=== PATIENT | male | born 1950 | race Caucasian/White ===

== ENCOUNTER → 2018-02-07 06:22 | Outpatient (CLI) | payer MEDICARE, OTHER, SELFPAY ==
--- NOTE | 2018-02-07 10:35 | STRESSREP ---
Stress Test Report Date: 02/07/2018 Procedure: Pharmacologic stress nuclear imaging study Indications: Shortness of breath/dyspnea on exertion; abnormal ECG Consent: Per the patient Procedure: The patient underwent pharmacologic (Regadenoson) evaluation with a peak heart rate of 97 beats per minute (64 predicted maximal heart rate) and a peak blood pressure of 170/82 mmHg. The baseline ECG demonstrated sinus rhythm with a right bundle branch block pattern. The peak pharmacologic ECG demonstrated no obvious ECG changes. There was a rare PVC during recovery. There was no complaint of chest discomfort during pharmacologic infusion or recovery. The examination was discontinued secondary to completion of protocol. Impression: 1. Pharmacologic (Regadenoson) evaluation 2. Peak pharmacologic ECG with no obvious ECG changes. 3. There was a rare PVC during recovery 4. Nuclear images pending Myocardial perfusion imaging study: Technique: The patient was injected with 14.9 millicuries of technetium 99m Cardiolite and subsequently rest SPECT Cardiolite nuclear imaging was obtained in the horizontal long, vertical long, and short axis views. The patient underwent pharmacologic (Regadenoson) evaluation with a peak heart rate of 97 beats per minute (64 % percent predicted maximal heart rate) and a peak blood pressure of 170/82 mmHg. The patient was injected with 4.6 millicuries of technetium 99m Cardiolite and subsequently stress SPECT Cardiolite nuclear imaging was obtained in the horizontal long, vertical long, and short axis views. A gated Cardiolite study at peak stress was obtained. Interpretation: Rest and stress SPECT Cardiolite nuclear imaging status post realignment, normalization, and attenuation correction demonstrate at rest and area of decreased myocardial perfusion/tracer uptake in portions of the distal inferolateral/lateral apical segments which appears to improve and/or normalize following stress. There is end systolic thickening and brightening. The gated Cardiolite study demonstrates myocardial thickening and inward wall motion. The reported LVEF is 75 %. Impression: 1. Rest and stress SPECT Cardiolite nuclear imaging demonstrate at rest and area of decreased myocardial perfusion/tracer uptake in portions of the distal inferolateral/lateral apical segments which appears to improve and/or normalize following stress. There are no myocardial perfusion changes consider diagnostic for associated stress-induced myocardial ischemia. 2. The gated Cardiolite study reports an LVEF of 75 %. This note was generated with [email or web address] software. It may contain incorrect words, spelling, and punctuation that were not noted in checking the note before signing.
== END ==
PROVIDERS: Family Provider Family Medicine; PCP Family Medicine; Visit Provider Family Medicine
DX: I45.10 Unspecified right bundle-branch block (principal); I44.4 Left anterior fascicular block; R94.31 Abnormal electrocardiogram [ECG] [EKG]
CPT/HCPCS: 78452; 93017; A9500; A4216; J2785

== ENCOUNTER → 2018-03-21 14:16 | Outpatient (CLI) | payer MEDICARE, OTHER, SELFPAY ==
[2018-03-21 16:49] LABS: PSA,Total - Annual Screen 0.55 ng/mL (0.00-4.00)
== END ==
PROVIDERS: Family Provider Family Medicine; PCP Family Medicine; Visit Provider Urology
DX: Z12.5 Encounter for screening for malignant neoplasm of prostate (principal)
CPT/HCPCS: 36415; 84153; G0103

== ENCOUNTER 2019-03-03 18:32 | Inpatient (IN) | payer MEDICARE, OTHER, SELFPAY ==
[2019-03-03 18:33] VITALS: BP 166/71; PULSE 76; RESP 18; TEMP 36.9; O2SAT 96; BMI 41.8
[2019-03-03 21:21] VITALS: BP 204/79; PULSE 74; RESP 16; O2SAT 95
--- NOTE | 2019-03-03 21:25 | ED.VISSUMM ---
- ER Visit Summary Date of Service: 03/03/19 Chief Complaint: Laceration right lower extremity History of Present Illness: The patient is a 68 M presenting with laceration right lower extremity. Patient accidentally hit his right leg with a car door earlier today. He continues to bleed and ooze. He has history of lymphedema. He is not on anticoagulants. No other injuries. Physical Examination: Vitals are stable. Patient is afebrile. Alert no acute distress. HEENT exam is unremarkable. Neck is supple. Lungs are clear and equal bilaterally. Heart is regular rate and rhythm. Abdomen is soft nontender nondistended. Extremities 3 cm skin avulsion right lower extremity. Bilateral lower extremity lymphedema Skin is warm and dry. No focal neurologic deficit. Remainder of exam is unremarkable. Emergency Department Course and Treatment: Wound was irrigated. Patient and family do not feel that he is able to care for this at home. He has significant oozing secondary to his lymphedema. He will need to follow-up with the wound center. Discussed with the hospitalist for observation. Disposition: Observation Impression: Right lower extremity wound, lymphedema This note was generated with [employer] dictation software. It may contain incorrect words, spelling, and punctuation that were not noted in review of the chart prior to signing ED Disposition - Plan for ED Patient: Referrals: Jean-Claude Garcia MD [Primary Care Provider] -
--- NOTE | 2019-03-03 21:26 | HP.PCM_ITS ---
Problem List (1) CKD (chronic kidney disease), stage III Status: Chronic (2) Wound of right leg Status: Acute (3) BMI 33.0-33.9,adult Status: Chronic History of Present Illness Date of Admission: 03/03/19 Chief Complaint: right leg wound The patient is a 68 year old M with a significant history of Morbid obesity; CKD stage III; diabetes mellitus; hypertension; hyperlipidemia; bilateral lymphedema; chronic anemia on regular iron infusions who presented to the emergency department because of right leg wound. He was getting out of his car and his leg bumped into the car door. Because patient is unable to reach his legs for dressing changes he was admitted for wound care. Past Medical History Past Medical History (Chronic Problems): Chronic Problems CKD (chronic kidney disease), stage III (Chronic) Diabetes (Chronic) Hypertension (Chronic) Hyperlipidemia (Chronic) BMI 33.0-33.9,adult (Chronic) Allergies amoxicillin Adverse Reaction (Verified 03/03/19 18:33) Upset Stomach Home Medications: Ambulatory Orders Medication Instructions Recorded Aspirin [Aspirin, Baby] 81 mg PO DAILY 03/03/15 Atorvastatin Calcium [Lipitor] 40 mg PO DAILY 03/03/15 Fluticasone 0.05% [Flonase Nasal 2 spray NASAL DAILY 12/31/15 [place]] Insulin Glargine,Hum.rec.anlog 40 unit SQ BREAKFAST 12/31/15 [Lantus] Pioglitazone [Actos] 30 mg PO DAILY 12/31/15 Sitagliptin Phosphate [Januvia] 12.5 mg PO DAILY 11/03/16 Allopurinol [Zyloprim] 100 mg PO DAILYCM 03/03/19 Carvedilol [Coreg] 50 mg PO BID 03/03/19 Cholecalciferol (VIT D3) [Vitamin 1,000 unit PO SUWESA 03/03/19 D] Clonidine HCl [Catapres] 0.3 mg PO BID 03/03/19 Insulin Aspart [Novolog Flexpen 16 units SC BIDCM 03/03/19 ([facility] [place])] Insulin Glargine,Hum.rec.anlog 30 unit SQ DINNER 03/03/19 [Lantus] Isosorbide Mononitrate [Isosorbide 120 mg PO DAILY 03/03/19 Mononitrate ER] Repaglinide [Prandin] 4 mg PO TID 03/03/19 Torsemide [Demadex] 20 mg PO DINNER 03/03/19 Torsemide [Demadex] 40 mg PO BREAKFAST 03/03/19 Umeclidinium Brm/Vilanterol Tr 1 each IH DAILY 03/03/19 [Anoro Ellipta 62.5-25 Mcg INH] hydrALAZINE [Apresoline] 25 mg PO TID 03/03/19 Surgical History: cataract Smoking Status: Former smoker - *Family History Sibling History Items: Heart Disease Maternal History Items: Heart Disease, Hypertension Paternal History Items: Cancer, Diabetes Review of Systems Constitutional: Denies: Chills, Fever, Weight Change HEENT: Denies: Head Aches, Sinus Congestion, Sinus Drainage Cardiovascular: Denies: Chest Pain, Palpitations Respiratory: Denies: Cough, Shortness of breath at rest, Sputum production Gastrointestinal: Denies: Abdominal Pain, Nausea, Vomiting Genitourinary: Denies: Dysuria Musculoskeletal: Denies: Joint Pain, Joint Tenderness Skin: Denies: Rash, Wounds Neurological: Denies: Numbness, Tingling, Focal weakness Psychiatric: Denies: Anxiety, Depression, Homicidal Ideations, Suicidal Ideations Hematologic/ Lymphatic: Denies: Easy Bruising, Easy Bleeding VTE Information - Inpt Only VTE Present on Admission: No VTE Mechan Device Prophylaxis: None VTE Pharm Prophylaxis ordered?: Yes Patient Problems: Active and Suspected Problems Wound of right leg (Acute) - Physical Exam General: Alert, Oriented x3, Cooperative, - - Morbidly Obese HEENT: Atraumatic, PERRLA, EOMI, Normocephalic Neck: Supple, No JVD, Negative Carotid Bruits Lungs: Clear to auscultation, Normal air movement Cardiovascular: Regular rate, No murmurs Abdomen: Bowel Sounds Present, Soft, Non Tender, Obese Extremities: No edema, Capillary Refill Less than 3 Seconds Skin: No breakdown, - - R ely deep wound; bilateral leg swelling with blisters. Musculoskeletal: No Tenderness to Palpation of Joints or Extremities Neurological: Cranial nerves II-XII grossly intact Psych/Mental Status: Normal Affect, Appropriate Vital Signs Temp Pulse Resp BP Pulse Ox 98.4 F 74 16 204/79 H 95 03/03/19 18:33 03/03/19 21:21 03/03/19 21:21 03/03/19 21:21 03/03/19 21:21 Oxygen Delivery Method Room Air Weight: 136.078 kg Body Mass Index (BMI) 41.8 Finger Stick Blood Glucose 131 Assessment/Plan All Active Problems Wound of right leg (Acute) DEVAN (acute kidney injury) (Acute) Gastrointestinal bleed (Resolved) Syncope and collapse (Acute) The patient is a 68 year old M with a significant history of CKD stage III; diabetes mellitus; hypertension; hyperlipidemia; bilateral lymphedema; chronic anemia on regular iron infusions who presented to the emergency department because of right leg wound which he will be unable to reach for dressing changes; and also found to have severely elevated creatinine above his baseline. Right leg wound Dry dressing to right leg until wound care see patient Wound care consult Tylenol for pain Discussed with ED doc to order Tetanus since patient thinks it is a long time he had a tetanus shot and does not know when. Hypertension On presentation his blood pressure was not within goal Coreg; clonidine; hydralazine p.o.; Imdur and torsemide continued PRN hydralazine continued DEVAN on CKD Stage 3 On presentation her creatinine was 3.19. BUN over creatinine is 26.3. Likely prerenal from diuretic use. Creatinine has been very variable. His highest creatinine in 2017 on file was 2.79. Hold home diuretics. Gentle IV hydration Avoid nephrotoxic's Trend BMP. Diabetes Mellitus On presentation his blood glucose was not within goal Home hypoglycemic regimen continued. Home Lantus continued Home short-acting insulin adjusted. Accu-Chek QACHS and correction scale short acting ordered. DVT Prophylaxis Heparin subcutaneous Code Visit OBSV E&M: 35125 Initial observation care L3
[2019-03-03 22:22] LABS: Absolute Lymphocyte Count 0.87 X10^3/ul (0.83-4.51); Absolute Neutrophil Count 7.5 X10^3/uL (2.0-7.7); Basophil# 0.03 X10^3/uL; Basophil% 0.3 % (0-1); Eosinophil# 0.19 X10^3/uL; Eosinophils% 2.1 % (0-5); Hematocrit 29.3 % (40-54); Hemoglobin 9.5 g/dl (13.0-16.5); Lymphocyte # 0.87 X10^3/ul (4.0); Lymphocyte % 9.7 % (19-41); Mean Corp Hgb Conc 32.4 g/gl (32-36); Mean Corpuscular Hgb 29.7 pg (27.0-32.0); Mean Corpuscular Volume 91.6 fL (80-94); Mean Platelet Vol. 9.9 fl (6.2-12.0); Monocyte# 0.37 X10^3/uL; Monocyte% 4.1 % (0-10); Neutrophil # 7.49 X10^3/uL (2.7-7.7); Neutrophil % 83.5 % (47-70); Platelet Count 149 K/mm3 (150-450); RBC Distribution Width CV 16.7 % (11.6-14.6); RBC Distribution Width SD 56.6 fl (35.1-43.9)
[2019-03-03 22:25] LABS: POSITIVE COUNT NO; POSITIVE DIFFERENTIAL NO; POSITIVE MORPHOLOGY NO
[2019-03-03 22:41] VITALS: BMI 41.5
[2019-03-03 22:41] LABS: Anion Gap 10 (5-15); BUN 84 mg/dL (7-18); BUN/Creat Ratio 26.3 RATIO (10-20); Chloride 102 mmol/L (98-107); Creatinine, Serum 3.19 mg/dL (0.70-1.30); EST Glomerular Filtration Rate 21 mL/min (>60); Est Glom Filt Rate - Afr Amer 25 mL/min (>60); Estimated Creatinine Clearance 22.95 ml/min; Glucose 199 mg/dL (74-106); Potassium 4.2 mmol/L (3.5-5.1); Sodium Level 142 mmol/L (136-145)
[2019-03-03 22:54] VITALS: BP 168/63; PULSE 74; RESP 18; TEMP 36.3; O2SAT 97
[2019-03-03] MEDS: Diphth,Pertuss(Acell),Tet Vac 0.5 ML Vial IM (23:00)
[2019-03-03 23:24] VITALS: BMI 41.6
[2019-03-03 23:41] VITALS: BP 168/63; PULSE 74
[2019-03-03] MEDS: hydrALAZINE 25 MG Tablet PO (23:41)
[2019-03-03 23:51] LABS: Bedside Glucose 198 mg/dL (70-110)
[2019-03-04] VITALS (11 sets, daily range): BP systolic 131–186; BP diastolic 50–80; PULSE 65–82; RESP 15–20; TEMP 36.6–37; O2SAT 93–97
[2019-03-04] MEDS: Lactated Ringers 1,000 ML 75 ML IV ×2 (00:31→14:01)
[2019-03-04] MEDS: 0.9% NaCl Peripheral Flush Adult/Peds IV ×2 (00:36→06:40)
[2019-03-04] MEDS: Insulin Lispro 100 UNIT/ML INSULN.PEN 10 UNIT SQ ×4 (00:47→16:48)
[2019-03-04 02:21] LABS: Bedside Glucose 206 mg/dL (70-110)
[2019-03-04] MEDS: hydrALAZINE 25 MG Tablet PO ×3 (06:23→21:42)
[2019-03-04] MEDS: Heparin Injection (Vial) 5,000 UNIT/ML VIAL 5000 UNIT SC ×3 (06:24→21:41)
[2019-03-04] MEDS: Ondansetron 4 MG/2 ML Vial IV ×2 (06:40→22:07)
[2019-03-04] MEDS: Ipratropium/Albuterol Sulfate 3 ML AMPUL.NEB INHALATION ×3 (06:47→18:35)
[2019-03-04] MEDS: Aspirin 81 MG TAB.CHEW PO (08:43)
[2019-03-04] MEDS: Carvedilol 25 MG Tablet 50 MG PO ×2 (08:43→21:41)
[2019-03-04] MEDS: cloNIDine HCl 0.1 MG Tablet 0.3 MG PO ×2 (08:43→21:41)
[2019-03-04] MEDS: Pioglitazone Hydrochloride 30 MG Tablet PO (08:43)
[2019-03-04] MEDS: LINAGLIPTIN 5 MG TABLET PO (08:44)
[2019-03-04] MEDS: Allopurinol 100 MG Tablet PO (08:44)
[2019-03-04] MEDS: Glucerna Shake 120 ML LIQUID PO ×4 (08:50→21:42)
[2019-03-04 09:01] LABS: Bedside Glucose 130 mg/dL (70-110)
[2019-03-04 09:13] LABS: Anion Gap 7 (5-15); BUN 72 mg/dL (7-18); BUN/Creat Ratio 27.1 RATIO (10-20); Calcium,Total 8.9 mg/dL (8.5-10.1); Chloride 104 mmol/L (98-107); Creatinine, Serum 2.66 mg/dL (0.70-1.30); EST Glomerular Filtration Rate 25 mL/min (>60); Est Glom Filt Rate - Afr Amer 31 mL/min (>60); Estimated Creatinine Clearance 26.68 ml/min; Glucose 124 mg/dL (74-106); Potassium 3.8 mmol/L (3.5-5.1); Sodium Level 141 mmol/L (136-145)
[2019-03-04] MEDS: Fluticasone 0.05% 1 SPRAY NASAL.SRY 2 SPRAY NASAL (11:57)
[2019-03-04] MEDS: Insulin Lispro 100 UNIT/ML INSULN.PEN SQ (12:01)
[2019-03-04 12:11] LABS: Bedside Glucose 177 mg/dL (70-110)
--- NOTE | 2019-03-04 13:15 | PCM.PN.HOSP ---
Patient Problems: Active and Suspected Problems Wound of right leg (Acute) Subjective: Earlier, had significant serous drainage from RLE wound. Later, serous drainage has improved. Vitals/I&O's: Vital Signs Temp Pulse Resp BP Pulse Ox 37.0 C 77 20 H 165/62 H 96 03/04/19 08:40 03/04/19 08:40 03/04/19 08:40 03/04/19 08:40 03/04/19 08:40 Oxygen Delivery Method Room Air Weight: 134.7 kg Body Mass Index (BMI) 41.5 Finger Stick Blood Glucose 131 Intake and Output for Last 24 Hours 03/02/19 03/03/19 03/04/19 23:59 23:59 23:59 Intake Total 1639 / 1639 Output Total 1560 / 1560 Balance General: Alert, No apparent distress HEENT: Atraumatic, Normocephalic Oral: Moist Mucosa, No Gingival or Mucosal Lesions/ Ulcerations Neck: No Nodes, Thyroid Normal Size and Texture Lungs: Clear to auscultation, Normal air movement, No rhonchi, No wheeze Cardiovascular: Regular rate, Regular Rhythm, Normal S1, Normal S2 Abdomen: Bowel Sounds Present, Soft, Non Tender, Non-Distended, No Hepato-splenomegaly Extremities: No edema, No Calf Tenderness, Edema Skin: - - right later wound: clean based, no bleeding. lymphedematous changes. Psych/Mental Status: Normal Affect, Appropriate Laboratory Results 03/03/19 22:16: WBC 9.0, RBC 3.20 L, Hgb 9.5 L, Hct 29.3 L, MCV 91.6, MCH 29.7, MCHC 32.4, RDW 16.7 H, RDW Differential 56.6 H, Plt Count 149 L, MPV 9.9, Immature Gran % (Auto) 0.300, Neut % (Auto) 83.5 H, Lymph % (Auto) 9.7 L, [place] % (Auto) 4.1, Eos % (Auto) 2.1, Baso % (Auto) 0.3, Absolute Neuts (auto) 7.5, Absolute Lymphs (auto) 0.87, Total Counted Not Reportable 03/03/19 22:16: Sodium 142, Potassium 4.2, Chloride 102, Carbon Dioxide 30.0, Anion Gap 10, BUN 84 H, Creatinine 3.19 H, Estim Creat Clear Calc 22.95, Est GFR (MDRD) Af Amer 25 L, Est GFR (MDRD) Non-Af 21 L, BUN/Creatinine Ratio 26.3 H, Glucose 199 H, Calcium 9.0 03/03/19 23:05: POC Glucose 198 H 03/04/19 00:57: POC Glucose 206 H 03/04/19 08:22: Sodium 141, Potassium 3.8, Chloride 104, Carbon Dioxide 30.0, Anion Gap 7, BUN 72 H, Creatinine 2.66 H, Estim Creat Clear Calc 26.68, Est GFR (MDRD) Af Amer 31 L, Est GFR (MDRD) Non-Af 25 L, BUN/Creatinine Ratio 27.1 H, Glucose 124 H, Calcium 8.9 03/04/19 08:36: POC Glucose 130 H 03/04/19 12:00: POC Glucose 177 H Current Medications Acetaminophen (Tylenol) 650 mg PO Q6H PRN PRN PRN Reason: Mild Pain (1-3)/Temp > 100.7 F Albuterol/Ipratropium (Duoneb) 3 ml INHALATION Q6HWA.RT [facility] Last Admin: 03/04/19 06:47 Dose: 3 ml Allopurinol (Zyloprim) 100 mg PO DAILYCM [facility] Last Admin: 03/04/19 08:44 Dose: 100 mg Aspirin (Aspirin, Baby) 81 mg PO DAILY@0800 [facility] Last Admin: 03/04/19 08:43 Dose: 81 mg Atorvastatin Calcium (Lipitor) 40 mg PO QHS [facility] Carvedilol (Coreg) 50 mg PO BID [facility] Last Admin: 03/04/19 08:43 Dose: 50 mg Cholecalciferol (Vitamin D) 1,000 unit PO MoWeSa@1000 [facility] Clonidine (Catapres) 0.3 mg PO BID [facility] Last Admin: 03/04/19 08:43 Dose: 0.3 mg Dextrose (D50w Syringe) 0 gm IV X1 PRN; Protocol PRN Reason: Hypoglycemia Fluticasone Propionate (Flonase Nasal [place]) 2 spray NASAL DAILY [facility] Last Admin: 03/04/19 11:57 Dose: 2 spray Glucagon () 1 mg IM .X1 PRN PRN Reason: Hypoglycemia Heparin Sodium (Porcine) (Heparin Na) 5,000 unit SC Q8 [facility] Last Admin: 03/04/19 06:24 Dose: 5,000 unit Hydralazine HCl (Apresoline) 25 mg PO TID [facility] Last Admin: 03/04/19 06:23 Dose: 25 mg Hydralazine HCl (Apresoline Iv) 5 mg IV Q4H PRN PRN PRN Reason: SBP > 160 Lactated Ringer's () 1,000 mls @ 75 mls/hr IV .[id number] [facility] Stop: 03/05/19 02:24 Last Admin: 03/04/19 00:31 Dose: 75 mls/hr Insulin Glargine (Lantus (Bkc)) 40 units SC BREAKFAST [facility] Last Admin: 03/04/19 08:46 Dose: 40 u Insulin Glargine (Lantus (Bkc)) 30 units SC QHS [facility] Last Admin: 03/03/19 23:38 Dose: 30 units Insulin Human Lispro (Humalog Kwikpen (Bkc)) [facility]; Protocol Last Admin: 03/04/19 12:01 Dose: 1 u Insulin Human Lispro (Humalog Kwikpen (Bkc)) 10 unit SQ BREAKFAST [facility] Last Admin: 03/04/19 08:45 Dose: 10 u Insulin Human Lispro (Humalog Kwikpen (Bkc)) 10 unit SQ DINNER [facility] Last Admin: 03/04/19 00:47 Dose: 10 units Insulin Human Lispro (Humalog Kwikpen (Bkc)) 10 unit SQ LUNCH [facility] Last Admin: 03/04/19 12:01 Dose: 10 u Isosorbide Mononitrate (Imdur) 120 mg PO DAILY [facility] Last Admin: 03/04/19 08:44 Dose: 120 mg Linagliptin (Tradjenta) 5 mg PO DAILY [facility] Last Admin: 03/04/19 08:44 Dose: 5 mg Nutritional Formula (Lactose Free) (Glucerna Shake) 120 ml PO 4X/DAY [facility] Last Admin: 03/04/19 08:50 Dose: 120 ml Ondansetron HCl (Zofran) 4 mg IV Q8H PRN PRN PRN Reason: NAUSEA/VOMITING Last Admin: 03/04/19 06:40 Dose: 4 mg Pioglitazone HCl (Actos) 30 mg PO DAILY [facility] Last Admin: 03/04/19 08:43 Dose: 30 mg Repaglinide (Prandin) 4 mg PO TIDCM [facility] Last Admin: 03/04/19 11:59 Dose: 4 mg Sodium Chloride () 5 - 15 ml IV UD PRN PRN Reason: SALINE FLUSH Last Admin: 03/04/19 06:40 Dose: 10 ml Torsemide (Demadex) 40 mg PO BREAKFAST [facility] Medical Necessity - Tobacco Use Smoking Status: Former smoker Tobacco Use: Cigarettes Assessment/Plan All Active Problems Wound of right leg (Acute) DEVAN (acute kidney injury) (Acute) Gastrointestinal bleed (Resolved) Syncope and collapse (Acute) 1. RLE wound 11/04 gouging it on car door states he cannot change it himself (not surprising given his morbid obesity) not home bound, therefore home care not an option will need wound care. given that today is Tuesday, cannot set up an appointment. Will keep here until 03/05, so he can see wound care and have wound care center follow up arranged. 2. CKD 4 doubt DEVAN he is established with nephrology as outpt 3. Lymphedema EF 75% on echo from 11/04/16 suspect component of pulmonary HTN, states he is to have PSG in near future. resume demedex 4. DM2 continue Lantus and log 5. VTE proph: SQ heparin. Code Visit OBSV E&M: 76295 Subsequent observation care L2
--- NOTE | 2019-03-04 13:22 | PN_ITS ---
Patient Problems: Active and Suspected Problems Wound of right leg (Acute) Subjective: Earlier, had significant serous drainage from RLE wound. Later, serous drainage has improved. Vitals/I&O's: Vital Signs Temp Pulse Resp BP Pulse Ox 37.0 C 77 20 H 165/62 H 96 03/04/19 08:40 03/04/19 08:40 03/04/19 08:40 03/04/19 08:40 03/04/19 08:40 Oxygen Delivery Method Room Air Weight: 134.7 kg Body Mass Index (BMI) 41.5 Finger Stick Blood Glucose 131 Intake and Output for Last 24 Hours 03/02/19 03/03/19 03/04/19 23:59 23:59 23:59 Intake Total 1639 / 1639 Output Total 1560 / 1560 Balance General: Alert, No apparent distress HEENT: Atraumatic, Normocephalic Oral: Moist Mucosa, No Gingival or Mucosal Lesions/ Ulcerations Neck: No Nodes, Thyroid Normal Size and Texture Lungs: Clear to auscultation, Normal air movement, No rhonchi, No wheeze Cardiovascular: Regular rate, Regular Rhythm, Normal S1, Normal S2 Abdomen: Bowel Sounds Present, Soft, Non Tender, Non-Distended, No Hepato- splenomegaly Extremities: No edema, No Calf Tenderness, Edema Skin: - - right later wound: clean based, no bleeding. lymphedematous changes. Psych/Mental Status: Normal Affect, Appropriate Laboratory Results 03/03/19 22:16: WBC 9.0, RBC 3.20 L, Hgb 9.5 L, Hct 29.3 L, MCV 91.6, MCH 29.7, MCHC 32.4, RDW 16.7 H, RDW Differential 56.6 H, Plt Count 149 L, MPV 9.9, Immature Gran % (Auto) 0.300, Neut % (Auto) 83.5 H, Lymph % (Auto) 9.7 L, [place] % (Auto) 4.1, Eos % (Auto) 2.1, Baso % (Auto) 0.3, Absolute Neuts (auto) 7.5, Absolute Lymphs (auto) 0.87, Total Counted Not Reportable 03/03/19 22:16: Sodium 142, Potassium 4.2, Chloride 102, Carbon Dioxide 30.0, Anion Gap 10, BUN 84 H, Creatinine 3.19 H, Estim Creat Clear Calc 22.95, Est GFR (MDRD) Af Amer 25 L, Est GFR (MDRD) Non-Af 21 L, BUN/Creatinine Ratio 26.3 H, Glucose 199 H, Calcium 9.0 03/03/19 23:05: POC Glucose 198 H 03/04/19 00:57: POC Glucose 206 H 03/04/19 08:22: Sodium 141, Potassium 3.8, Chloride 104, Carbon Dioxide 30.0, Anion Gap 7, BUN 72 H, Creatinine 2.66 H, Estim Creat Clear Calc 26.68, Est GFR (MDRD) Af Amer 31 L, Est GFR (MDRD) Non-Af 25 L, BUN/Creatinine Ratio 27.1 H, Glucose 124 H, Calcium 8.9 03/04/19 08:36: POC Glucose 130 H 03/04/19 12:00: POC Glucose 177 H Current Medications Acetaminophen (Tylenol) 650 mg PO Q6H PRN PRN PRN Reason: Mild Pain (1-3)/Temp > 100.7 F Albuterol/Ipratropium (Duoneb) 3 ml INHALATION Q6HWA.RT [facility] Last Admin: 03/04/19 06:47 Dose: 3 ml Allopurinol (Zyloprim) 100 mg PO DAILYCM [facility] Last Admin: 03/04/19 08:44 Dose: 100 mg Aspirin (Aspirin, Baby) 81 mg PO DAILY@0800 [facility] Last Admin: 03/04/19 08:43 Dose: 81 mg Atorvastatin Calcium (Lipitor) 40 mg PO QHS [facility] Carvedilol (Coreg) 50 mg PO BID [facility] Last Admin: 03/04/19 08:43 Dose: 50 mg Cholecalciferol (Vitamin D) 1,000 unit PO MoWeSa@1000 [facility] Clonidine (Catapres) 0.3 mg PO BID [facility] Last Admin: 03/04/19 08:43 Dose: 0.3 mg Dextrose (D50w Syringe) 0 gm IV X1 PRN; Protocol PRN Reason: Hypoglycemia Fluticasone Propionate (Flonase Nasal [place]) 2 spray NASAL DAILY [facility] Last Admin: 03/04/19 11:57 Dose: 2 spray Glucagon () 1 mg IM .X1 PRN PRN Reason: Hypoglycemia Heparin Sodium (Porcine) (Heparin Na) 5,000 unit SC Q8 [facility] Last Admin: 03/04/19 06:24 Dose: 5,000 unit Hydralazine HCl (Apresoline) 25 mg PO TID [facility] Last Admin: 03/04/19 06:23 Dose: 25 mg Hydralazine HCl (Apresoline Iv) 5 mg IV Q4H PRN PRN PRN Reason: SBP > 160 Lactated Ringer's () 1,000 mls @ 75 mls/hr IV .[id number] [facility] Stop: 03/05/19 02:24 Last Admin: 03/04/19 00:31 Dose: 75 mls/hr Insulin Glargine (Lantus (Bkc)) 40 units SC BREAKFAST [facility] Last Admin: 03/04/19 08:46 Dose: 40 u Insulin Glargine (Lantus (Bkc)) 30 units SC QHS [facility] Last Admin: 03/03/19 23:38 Dose: 30 units Insulin Human Lispro (Humalog Kwikpen (Bkc)) [facility] Protocol Last Admin: 03/04/19 12:01 Dose: 1 u Insulin Human Lispro (Humalog Kwikpen (Bkc)) 10 unit SQ BREAKFAST [facility] Last Admin: 03/04/19 08:45 Dose: 10 u Insulin Human Lispro (Humalog Kwikpen (Bkc)) 10 unit SQ DINNER [facility] Last Admin: 03/04/19 00:47 Dose: 10 units Insulin Human Lispro (Humalog Kwikpen (Bkc)) 10 unit SQ LUNCH [facility] Last Admin: 03/04/19 12:01 Dose: 10 u Isosorbide Mononitrate (Imdur) 120 mg PO DAILY [facility] Last Admin: 03/04/19 08:44 Dose: 120 mg Linagliptin (Tradjenta) 5 mg PO DAILY [facility] Last Admin: 03/04/19 08:44 Dose: 5 mg Nutritional Formula (Lactose Free) (Glucerna Shake) 120 ml PO 4X/DAY [facility] Last Admin: 03/04/19 08:50 Dose: 120 ml Ondansetron HCl (Zofran) 4 mg IV Q8H PRN PRN PRN Reason: NAUSEA/VOMITING Last Admin: 03/04/19 06:40 Dose: 4 mg Pioglitazone HCl (Actos) 30 mg PO DAILY [facility] Last Admin: 03/04/19 08:43 Dose: 30 mg Repaglinide (Prandin) 4 mg PO TIDCM [facility] Last Admin: 03/04/19 11:59 Dose: 4 mg Sodium Chloride () 5 - 15 ml IV UD PRN PRN Reason: SALINE FLUSH Last Admin: 03/04/19 06:40 Dose: 10 ml Torsemide (Demadex) 40 mg PO BREAKFAST [facility] Medical Necessity - Tobacco Use Smoking Status: Former smoker Tobacco Use: Cigarettes Assessment/Plan All Active Problems Wound of right leg (Acute) DEVAN (acute kidney injury) (Acute) Gastrointestinal bleed (Resolved) Syncope and collapse (Acute) 1. RLE wound * 11/04 gouging it on car door * states he cannot change it himself (not surprising given his morbid obesity) * not home bound, therefore home care not an option * will need wound care. given that today is Tuesday, cannot set up an appointment. Will keep here until 03/05, so he can see wound care and have wound care center follow up arranged. 2. CKD 4 * doubt DEVAN * he is established with nephrology as outpt 3. Lymphedema * EF 75% on echo from 11/04/16 * suspect component of pulmonary HTN, states he is to have PSG in near future. * resume demedex 4. DM2 * continue Lantus and log 5. VTE proph: SQ heparin. Code Visit OBSV E&M: 44615 Subsequent observation care L2
[2019-03-04 16:55] LABS: Bedside Glucose 133 mg/dL (70-110)
[2019-03-04] MEDS: hydrALAZINE 20 MG/ML Vial 5 MG IV (19:41)
[2019-03-04] MEDS: Atorvastatin Calcium 40 MG Tablet PO (21:42)
[2019-03-04 22:05] LABS: Bedside Glucose 117 mg/dL (70-110)
[2019-03-04] MEDS: Acetaminophen 325 MG Tablet 650 MG PO (22:07)
[2019-03-05 05:06] VITALS: BP 133/62; PULSE 72; RESP 18; TEMP 36.4; O2SAT 94
[2019-03-05 05:10] VITALS: PULSE 79
[2019-03-05] MEDS: Heparin Injection (Vial) 5,000 UNIT/ML VIAL 5000 UNIT SC (05:10)
[2019-03-05] MEDS: hydrALAZINE 25 MG Tablet PO (05:10)
[2019-03-05 07:00] VITALS: PULSE 64; RESP 16; O2SAT 93
[2019-03-05] MEDS: Ipratropium/Albuterol Sulfate 3 ML AMPUL.NEB INHALATION (07:00)
[2019-03-05 07:06] LABS: Anion Gap 7 (5-15); BUN 79 mg/dL (7-18); BUN/Creat Ratio 23.6 RATIO (10-20); Calcium,Total 8.8 mg/dL (8.5-10.1); Chloride 103 mmol/L (98-107); Creatinine, Serum 3.35 mg/dL (0.70-1.30); EST Glomerular Filtration Rate 19 mL/min (>60); Est Glom Filt Rate - Afr Amer 24 mL/min (>60); Estimated Creatinine Clearance 21.19 ml/min; Glucose 43 mg/dL (74-106); Potassium 3.7 mmol/L (3.5-5.1); Sodium Level 142 mmol/L (136-145)
[2019-03-05 07:25] LABS: Bedside Glucose 55 mg/dL (70-110)
--- NOTE | 2019-03-05 07:27 | NURSING ---
03/05 This RN notified of critical BG of 43. Proceeded to give patient orange juice x2 and peanut butter x2. Rechecked in 15 minutes and BG was 55. Repeated orange juice and peanut butter and notified dayshift RN Denise Santiago.
[2019-03-05 08:40] LABS: Bedside Glucose 122 mg/dL (70-110)
[2019-03-05] MEDS: Pioglitazone Hydrochloride 30 MG Tablet PO (08:40)
[2019-03-05] MEDS: LINAGLIPTIN 5 MG TABLET PO (08:41)
[2019-03-05] MEDS: Allopurinol 100 MG Tablet PO (08:41)
[2019-03-05] MEDS: Aspirin 81 MG TAB.CHEW PO (08:41)
[2019-03-05] MEDS: Furosemide 80 MG Tablet PO (08:43)
--- NOTE | 2019-03-05 09:01 | CASEMGMT ---
Social Work Note Per beverage server questions, pt has not completed LW. Pt has completed HCPOA but hasn't provided copy to [facility] and pt is unable to bring in copy. Aggie Barajas NOODLE PRESS OPERATOR, DIGITAL PROJECT COORDINATOR
--- NOTE | 2019-03-05 10:06 | CASEMGMT ---
RN CM Assessment Presentation: Wound R leg Intro role of CM and purpose of RN CM assessment to patient in room. Demographics, PCP and Pharmacy verified. CM inquired on pt doing dressing changes @ home and wrapping leg. Pt states he has difficulty with this. Discussed finding someone to assist him as Home Health is not an option as pt is not home bound and wound center will not be able to see pt daily just for dressing changes. Pt states he has a brother who may be able to assist. Pt states he can change the dressing on the wound, but has difficulty with wrapping the ana wrap. Ashley Amezcua Wound Nurse evaluated pt and changed dressing today. -RN VIRGIL called to wound center. Appointment made for March 09 @ 8:30 to begin following and assisting patient. -RN CM recommended if pt has concerns re: wound prior to this appt to see PCP and they can assist with evaluation of wound and dressing change. PCP: Dr. Garcia Preferred Pharmacy: [facility] Insurance: [facility] Prescription Benefit: yes LNOK: Sister, Tarik Honger Living Arrangements: Lives independently in own home. Pt states she is independent in ADL's, drives and does own cooking, cleaning. Transportation: drives DME: cane only HHC: no Patient DC goals: Home DC PLAN: Home with f/u with PCP and [facility] wound center. Santhosh MURILLO RN ACM
[2019-03-05 10:22] VITALS: BP 149/62; PULSE 81; RESP 18; TEMP 36.4; O2SAT 97
[2019-03-05] MEDS: Carvedilol 25 MG Tablet 50 MG PO (10:25)
[2019-03-05] MEDS: Fluticasone 0.05% 1 SPRAY NASAL.SRY 2 SPRAY NASAL (10:25)
[2019-03-05] MEDS: Glucerna Shake 120 ML LIQUID PO (10:25)
[2019-03-05] MEDS: cloNIDine HCl 0.1 MG Tablet 0.3 MG PO (10:25)
--- NOTE | 2019-03-05 10:44 | NURSING ---
wound photo: right lateral ely
[2019-03-05] MEDS: Insulin Lispro 100 UNIT/ML INSULN.PEN 10 UNIT SQ (11:37)
[2019-03-05] MEDS: Insulin Lispro 100 UNIT/ML INSULN.PEN SQ (11:37)
[2019-03-05 11:55] LABS: Bedside Glucose 210 mg/dL (70-110)
--- NOTE | 2019-03-05 11:56 | DCINST_ITS ---
- Discharge Diagnoses Current Active Problems: Current Active and Chronic Problems Wound of right leg (Acute) You will use the following diet at home:: Calorie/Carbohydrate Controlled (specify 1200, 1400, etc) - 1800, Cardiac Your food should be the consistency of: Regular Your liquids should be the consistency of: Regular/Thin Discharge Activity: Return to Normal Activity Weight Bearing Status: Weight bearing as tolerated Call your doctor if your incision/area has: Continuous Slow Oozing, Increased Pain/ Swelling, Increased Redness Call your doctor if you observe: Fever of 101 or Higher, Uncontrolled pain Instructions: ED Avulsion Dermal Additional Instructions: keep blood sugar log and show to PCP for adjustment of medication as needed. wound care dressing as per wound nurse instruction Allergies/Adverse Reactions: Allergies ARB-Angiotensin Receptor Antagonist Allergy (Verified 03/03/19 21:55) Other WORSENS RENAL FUNCTION amoxicillin Adverse Reaction (Verified 03/03/19 18:33) Upset Stomach Medications to take at Discharge Aspirin [Aspirin, Baby] 81 mg PO DAILY 03/03/15 Atorvastatin Calcium [Lipitor] 40 mg PO DAILY 03/03/15 Fluticasone 0.05% [Flonase Nasal [place]] 2 spray NASAL DAILY 12/31/15 Insulin Glargine,Hum.rec.anlog [Lantus] 40 unit SQ BREAKFAST 12/31/15 Pioglitazone [Actos] 30 mg PO DAILY 12/31/15 Sitagliptin Phosphate [Januvia] 12.5 mg PO DAILY 11/03/16 Allopurinol [Zyloprim] 100 mg PO DAILYCM 03/03/19 Carvedilol [Coreg] 50 mg PO BID 03/03/19 Cholecalciferol (VIT D3) [Vitamin D3] 1,000 unit PO SUWESA 03/03/19 Clonidine HCl [Catapres] 0.3 mg PO BID 03/03/19 Insulin Aspart [Novolog Flexpen] 16 units SC BIDCM 03/03/19 Insulin Glargine,Hum.rec.anlog [Lantus] 30 unit SQ DINNER 03/03/19 Isosorbide Mononitrate [Isosorbide Mononitrate ER] 120 mg PO DAILY 03/03/19 Repaglinide [Prandin] 4 mg PO TID 03/03/19 Torsemide [Demadex] 20 mg PO DINNER 03/03/19 Torsemide [Demadex] 40 mg PO BREAKFAST 03/03/19 Umeclidinium Brm/Vilanterol Tr [Anoro Ellipta 62.5-25 Mcg INH] 1 each IH DAILY 03/03/19 hydrALAZINE [Apresoline] 25 mg PO TID 03/03/19 Primary Care Physician: Jean-Claude Garcia MD [Primary Care Provider] - Please follow up with your Primary Care Physician in: one week Test Results: Test results from this visit will be discussed in further detail at your follow- up appointment, if applicable. Please Follow Up With: Josee,Wound When: Tuesday Proposed Discharge Date: 03/05/19
--- NOTE | 2019-03-05 11:56 | PCM.DC.SUM ---
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 He was getting out of his car and bumped his leg on the car door. Patient was unable to reach down to his legs for dressing change so he was admitted for wound care. He remained stable and wound care reviewed patient. Of note, patient's CR was 3.19 on admission, and this was thought to be due to his CKD. Cr trended down to 2.66, but trended up 3.35 again. Patient said he had established care with nephrology for CKD. On day of discharge, sole sewer hand blood sugar was 43; patient stated he hadnt eaten well the night before, though he had taken his regular insulin dose, and thought his poor eating may have contributed to the low blood sugar. Patient stated that his sugar at home was usually in the 90s to around sole sewer hand. Patient was counseled to keep a blood sugar log and to follow-up with his PCP for adjustment of his insulin dose as needed. 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 He is follow-up with his scouring train operator chief and PCP within 1 week for repeat BMP. Patient is to have dressing changes as instructed per wound care. Patient seen and examined prior to discharge. He had no complaints and felt well. He was drinking well and eating a good breakfast. Review of systems otherwise negative. Labs and vitals reviewed. Medication reviewed and reconciled. o/e: [] Vital Signs Height 5 ft 10.87 in Weight: 296 lb 15.402 oz Weight in Pounds 297.0 lbs Pulse Ox 97 Temperature 97.5 F Pulse Rate 81 Respiratory Rate 18 Blood Pressure 149/62 Blood Pressure Position Sitting General: Alert, No apparent distress HEENT: Atraumatic, Normocephalic Oral: Moist Mucosa, No Gingival or Mucosal Lesions/ Ulcerations Neck: No Nodes, Thyroid Normal Size and Texture Lungs: Clear to auscultation, Normal air movement, No rhonchi, No wheeze Cardiovascular: Regular rate, Regular Rhythm, Normal S1, Normal S2, no murmurs Abdomen: Bowel Sounds Present, Soft, Non Tender, Non-Distended, No Hepato-splenomegaly Extremities: No edema, No Calf Tenderness, Edema Skin: - - right LE wound: clean based, no bleeding. lymphedematous changes on both LEs Psych/Mental Status: Normal Affect, Appropriate Plan as above. Patient Problems: Active and Suspected Problems Wound of right leg (Acute) - Physical Exam Vital Signs Temp Pulse Resp BP Pulse Ox 97.5 F L 81 18 149/62 H 97 03/05/19 10:22 03/05/19 10:22 03/05/19 10:22 03/05/19 10:22 03/05/19 10:22 Oxygen Delivery Method Room Air Weight: 296 lb 15.402 oz Body Mass Index (BMI) 41.5 Finger Stick Blood Glucose 131 Intake and Output for Last 24 Hours 03/03/19 03/04/19 03/05/19 23:59 23:59 23:59 Intake Total 2424 / 2424 1104 / 1104 Output Total 2185 / 2185 1000 / 1000 Balance 239 / 239 104 / 104 Laboratory Tests Past 24 Hrs 03/05/19 06:18 Sodium 142 Potassium 3.7 Chloride 103 Carbon Dioxide 32.0 Anion Gap 7 BUN 79 H Creatinine 3.35 H Estim Creat Clear Calc 21.19 Est GFR (MDRD) Af Amer 24 L Est GFR (MDRD) Non-Af 19 L BUN/Creatinine Ratio 23.6 H Glucose 43 L* Calcium 8.8 POC Glucose 03/05/19 03/05/19 03/05/19 11:34 08:24 07:22 POC Glucose 210 H 122 H 55 L 03/04/19 03/04/19 03/04/19 21:45 16:47 12:00 POC Glucose 117 H 133 H 177 H Discharge Diet: Low fat/ Low Cholesterol, 1800 Calorie Control Diet Discharge Activity: Return to Normal Activity Weight Bearing Status: Weight bearing as tolerated Call your doctor if your incision/area has: Continuous Slow Oozing, Increased Pain/ Swelling, Increased Redness Call your doctor if you observe: Fever of 101 or Higher, Uncontrolled pain Home Medications: Medications to take at Discharge Aspirin [Aspirin, Baby] 81 mg PO DAILY 03/03/15 Atorvastatin Calcium [Lipitor] 40 mg PO DAILY 03/03/15 Fluticasone 0.05% [Flonase Nasal [place]] 2 spray NASAL DAILY 12/31/15 Insulin Glargine,Hum.rec.anlog [Lantus] 40 unit SQ BREAKFAST 12/31/15 Pioglitazone [Actos] 30 mg PO DAILY 12/31/15 Sitagliptin Phosphate [Januvia] 12.5 mg PO DAILY 11/03/16 Allopurinol [Zyloprim] 100 mg PO DAILYCM 03/03/19 Carvedilol [Coreg] 50 mg PO BID 03/03/19 Cholecalciferol (VIT D3) [Vitamin D3] 1,000 unit PO SUWESA 03/03/19 Clonidine HCl [Catapres] 0.3 mg PO BID 03/03/19 Insulin Aspart [Novolog Flexpen] 16 units SC BIDCM 03/03/19 Insulin Glargine,Hum.rec.anlog [Lantus] 30 unit SQ DINNER 03/03/19 Isosorbide Mononitrate [Isosorbide Mononitrate ER] 120 mg PO DAILY 03/03/19 Repaglinide [Prandin] 4 mg PO TID 03/03/19 Torsemide [Demadex] 20 mg PO DINNER 03/03/19 Torsemide [Demadex] 40 mg PO BREAKFAST 03/03/19 Umeclidinium Brm/Vilanterol Tr [Anoro Ellipta 62.5-25 Mcg INH] 1 each IH DAILY 03/03/19 hydrALAZINE [Apresoline] 25 mg PO TID 03/03/19 Primary Care Physician: Jean-Claude Garcia MD [Primary Care Provider] - Please follow up with your Primary Care Physician in: one week Please Follow Up With: Clinic,Wound When: Tuesday Patient Instructions: ED Avulsion Dermal Disposition: Home Minutes spent on discharge:: 35 Patient Condition:: Stable Medical Necessity - Tobacco Use Smoking Status: Former smoker Tobacco Use: Cigarettes Meaningful Use Info Meaningful Use Diagnoses (Choose all that apply): None applicable Code Visit Inpatient E&M: 70419 Disch Hosp
== END 2019-03-05 13:45 | disposition home or self-care (01) | DRG 605 ==
LOC: ED 19:38 → MS2 03-04 06:59
PROVIDERS: Admitting Provider Hospitalist; Emergency Provider Emergency Medicine; Family Provider Family Medicine; PCP Family Medicine; Referring Provider Hospitalist; Visit Provider Student in an Organized Health Care Education/Training Program
DX: S81.811A Laceration without foreign body, right lower leg, initial encounter (principal); N18.4 Chronic kidney disease, stage 4 (severe); N17.9 Acute kidney failure, unspecified; Z68.41 Body mass index [BMI] 40.0-44.9, adult; V48.4XXA Person boarding or alighting a car injured in noncollision transport accident, initial encounter; Y93.9 Activity, unspecified; Y92.89 Other specified places as the place of occurrence of the external cause; Y99.8 Other external cause status; I27.20 Pulmonary hypertension, unspecified; I89.0 Lymphedema, not elsewhere classified; E66.01 Morbid (severe) obesity due to excess calories; E78.5 Hyperlipidemia, unspecified; Z87.891 Personal history of nicotine dependence; Z79.4 Long term (current) use of insulin; Z79.82 Long term (current) use of aspirin; I12.9 Hypertensive chronic kidney disease with stage 1 through stage 4 chronic kidney disease, or unspecified chronic kidney disease; E11.22 Type 2 diabetes mellitus with diabetic chronic kidney disease; D63.1 Anemia in chronic kidney disease
CPT/HCPCS: 36415; 80048; 82962; 85025; 90715; 94640; 97162; 97165; 97530; 97802; 99285; J7120; A4216; J2405

== ENCOUNTER 2019-03-30 10:30 | Outpatient (RCR) | payer MEDICARE, OTHER, SELFPAY ==
[2019-03-09 09:11] VITALS: BP 124/53; PULSE 70; RESP 16; TEMP 36.4; BMI 41.8
--- NOTE | 2019-03-09 12:27 | PCM.WC.HP ---
(1) Non-pressure ulcer of right lower extremity with fat layer exposed Status: Acute Current Visit: Yes Code(s): L97.912 - Non-pressure chronic ulcer of unspecified part of right lower leg with fat layer exposed (2) DEVAN (acute kidney injury) Status: Acute Current Visit: No Code(s): N17.9 - Acute kidney failure, unspecified (3) BMI 33.0-33.9,adult Status: Chronic Current Visit: No Code(s): Z68.33 - Body mass index (BMI) 33.0-33.9, adult (4) CKD (chronic kidney disease), stage III Status: Chronic Current Visit: No Code(s): N18.3 - Chronic kidney disease, stage 3 (moderate) (5) Diabetes Status: Chronic Current Visit: No Qualifiers: Code(s): E11.9 - Type 2 diabetes mellitus without complications (6) Hyperlipidemia Status: Chronic Current Visit: No Qualifiers: Code(s): E78.5 - Hyperlipidemia, unspecified (7) Hypertension Status: Chronic Current Visit: No Qualifiers: Code(s): I10 - Essential (primary) hypertension (8) Traumatic open wound of right lower leg Status: Acute Current Visit: Yes Code(s): S81.801A - Unspecified open wound, right lower leg, initial encounter (9) Traumatic open wound of right lower leg with delayed healing Status: Acute Current Visit: Yes Code(s): S81.801D - Unspecified open wound, right lower leg, subsequent encounter History of Present Illness Date of Service: 03/09/19 Chief Complaint: Follow-up on wound on the right lower leg History of Wound: 68-year-old obese white male that lives alone caught his car door on the bottom of his leg avulsion laceration. Was seen in the emergency room on March 03 was not sutured. Patient suffers from acute renal and chronic renal failure with stage III lymphedema of the lower extremities. Patient is diabetic and hypertensive blood sugars are fairly controlled. Past Medical History Past Medical History: Chronic Problems CKD (chronic kidney disease), stage III (Chronic) Diabetes (Chronic) Hypertension (Chronic) Hyperlipidemia (Chronic) BMI 33.0-33.9,adult (Chronic) Past Medical History: Traumatic wound right lateral lower leg. Lymphedema lower extremities Surgical History: cataract Allergies/Adverse Reactions: Allergies ARB-Angiotensin Receptor Antagonist Allergy (Verified 03/09/19 09:39) Other WORSENS RENAL FUNCTION amoxicillin Adverse Reaction (Verified 03/09/19 09:39) Upset Stomach Home Medications: Ambulatory Orders Medication Instructions Recorded Aspirin [Aspirin, Baby] 81 mg PO DAILY 03/03/15 Atorvastatin Calcium [Lipitor] 40 mg PO DAILY 03/03/15 Fluticasone 0.05% [Flonase Nasal 2 spray NASAL DAILY 12/31/15 [place]] Insulin Glargine,Hum.rec.anlog 40 unit SQ BREAKFAST 12/31/15 [Lantus] Pioglitazone [Actos] 30 mg PO DAILY 12/31/15 Sitagliptin Phosphate [Januvia] 12.5 mg PO DAILY 11/03/16 Allopurinol [Zyloprim] 100 mg PO DAILYCM 03/03/19 Carvedilol [Coreg] 50 mg PO BID 03/03/19 Cholecalciferol (VIT D3) [Vitamin 1,000 unit PO SUWESA 03/03/19 D3] Clonidine HCl [Catapres] 0.3 mg PO BID 03/03/19 Insulin Aspart [Novolog Flexpen] 16 units SC BIDCM 03/03/19 Insulin Glargine,Hum.rec.anlog 30 unit SQ DINNER 03/03/19 [Lantus] Isosorbide Mononitrate [Isosorbide 120 mg PO DAILY 03/03/19 Mononitrate ER] Repaglinide [Prandin] 4 mg PO TID 03/03/19 Torsemide [Demadex] 20 mg PO DINNER 03/03/19 Torsemide [Demadex] 40 mg PO BREAKFAST 03/03/19 Umeclidinium Brm/Vilanterol Tr 1 each IH DAILY 03/03/19 [Anoro Ellipta 62.5-25 Mcg INH] hydrALAZINE [Apresoline] 25 mg PO TID 03/03/19 - Family History Sibling Heart Disease Paternal Cancer, Diabetes Maternal Heart Disease, Hypertension Smoking Status: Former smoker Review of Systems Constitutional: Denies: Chills, Fever Eyes: Denies: Blurred vision, Drainage, Pain HEENT: Denies: Difficulty Hearing, Difficulty Swallowing, Sore Throat, Visual Changes Cardiovascular: Denies: Chest Pain, Palpitations, Syncope Respiratory: Denies: Cough, Shortness of Breath Gastrointestinal: Denies: Abdominal Pain, Nausea, Vomiting Genitourinary: Denies: Dysuria, Frequency Musculoskeletal: Denies: Joint Pain, Muscle pain Skin: Reports: - - Wound on the right lower leg. Denies: Jaundice, Rash Neurological: Denies: Balance problems, Change in Speech, Difficulty swallowing, Focal weakness Psychiatric: Denies: Anxiety, Depression Endocrine: Denies: Change in Body Habitus Hematologic/ Lymphatic: Denies: Adenopathy - Physical Exam Vital Signs Temp Pulse Resp BP 97.6 F L 70 16 124/53 H 03/09/19 09:11 03/09/19 09:11 03/09/19 09:11 03/09/19 09:11 General: Oriented x3, Cooperative, Well developed HEENT: Atraumatic, PERRLA Oral: Moist Mucosa Neck: Supple, No JVD Lungs: Clear to auscultation, Normal air movement Cardiovascular: Regular rate, Regular Rhythm Abdomen: Bowel Sounds Present, Soft, Non Tender, No Hepato-splenomegaly Extremities: No clubbing, Diminished Peripheral Pulses, Edema Skin: Ulcer/ Wound - Open wound right lateral lower leg from trauma Wound Measurements and Assessment WC - Nurse 1 - General Ulcer Measurement Start: 03/09/19 09:08 Freq: Status: Active Protocol: Activity Type Activity Date Activity User E-Sign Co-Sign Detail Recorded Client Recorded Date Recorded By Document 03/09/19 09:11 [facility] [id number] 03/09/19 09:35 [facility] 03/09/19 09:11 Wound Center Nurse 1 [Ulcer Assessment] #1- RT LATERAL LEG -Combined with other wound No -Current Size (cm) - Length 3.7 -Current Size (cm) - Width 2.7 -Current Size (cm) - Depth 0.3 -Total Square Cm 9.99 -Date of Last Picture (Recall this 03/09/19 field) -Photo Taken Yes -Epithelialization None Present -Tunneling No -Undermining/Tunneling No -Circular Undermining No -Exudate Amt Medium -Exudate Type Serous -Wound Margin Distinct, Outline Attached -Granulation Amt Medium (34-66%) -Granulation Quality Red -Slough/Fibrin Yes -Necrosis Amt Small (1-33%) -Necrotic Tissue Type Adherent Slough -Texture (Monica-wound Skin Appearance) Assessed Scarring -Moisture (Monica-wound Skin Appearance Assessed ) Dry/Scaly -Color (Monica-wound Skin Appearance) Assessed Erythema -Temperature (Monica-wound Skin No Abnormality Appearance) (Pt Warm) -Tenderness on Palpation (Monica-wound No Skin Appearance) -Ulcer Cleansing Wound Cleanser -Foul Odor after Cleansing No -Anesthetic Used 5% Lidocaine Gel [Edema Assessment] -Lower Limb Edema Present Yes -Right Calf (cm) 56.4 -Right Ankle (cm) 36.8 -Left Calf (cm) 59.7 -Left Ankle (cm) 39 WC - Nurse 2 - General Ulcer CM Notes Start: 03/09/19 09:08 Freq: Status: Active Protocol: Activity Type Activity Date Activity User E-Sign Co-Sign Detail Recorded Client Recorded Date Recorded By Document 03/09/19 09:50 MW [id number] 03/09/19 09:59 MW 03/09/19 09:50 Wound Center Nurse 2 [Procedure/Treatment] #1- RT LATERAL LEG -Time 09:56 -Correct Patient Yes -Correct Side, Site, Position Yes -Correct Procedure Yes -Procedure Performed Yes -Type of Procedure Debridement -Clinical Debridement Subcutaneous -Post Debridement Size (cm) - Length 3.4 -Post Debridement Size (cm) - Width 3.0 -Post Debridement Size (cm) - Depth 0.3 -Total Square Cm 10.20 -Wound/Ulcer Outcome Not Healed -Ulcer Cleansing Rinsed/ Irrigated with Saline -Foul Odor after Cleansing No -Bioengineered Tissue No -Bleeding Controlled with Pressure -Offloading No -Treatment Response Procedure Tolerated Well [See Physician Procedure note for Specifics] Pain Scale: 0-10 Numeric [Pain] -Is Patient Pain Free? Yes Musculoskeletal: No Tenderness to Palpation of Joints or Extremities Lymphatic: No Cervical, Supraclavicular, or Inguinal Adenopathy Neurological: Cranial nerves II-XII grossly intact, Neuro grossly intact Psych/Mental Status: Normal Affect, Appropriate Debridement Note Post-Debridement Measurements/Treatment WC - Nurse 2 - General Ulcer CM Notes Start: 03/09/19 09:08 Freq: Status: Active Protocol: Activity Type Activity Date Activity User E-Sign Co-Sign Detail Recorded Client Recorded Date Recorded By Document 03/09/19 09:50 MW [id number] 03/09/19 09:59 MW 03/09/19 09:50 Wound Center Nurse 2 #1- RT LATERAL LEG -Time 09:56 -Correct Patient Yes -Correct Side, Site, Position Yes -Correct Procedure Yes -Procedure Performed Yes -Type of Procedure Debridement -Clinical Debridement Subcutaneous -Post Debridement Size (cm) - Length 3.4 -Post Debridement Size (cm) - Width 3.0 -Post Debridement Size (cm) - Depth 0.3 -Total Square Cm 10.20 -Wound/Ulcer Outcome Not Healed -Ulcer Cleansing Rinsed/ Irrigated with Saline -Foul Odor after Cleansing No -Bioengineered Tissue No -Bleeding Controlled with Pressure -Offloading No -Treatment Response Procedure Tolerated Well Pain Scale: 0-10 Numeric Is Patient Pain Free? Yes Wound debrided: Right lateral lower leg Anesthesia Used: 5% Lidocaine Gel Depth: Down to and including healthy tissue, in the subcutaneous layer Percentage of wound debrided: 100 Instrument Used: 5mm curette Tissue Removed: Fibrin and some devitalized tissue Severity: Fat Layer Exposed Amount of bleeding with debridement: Mild Bleeding Controlled with: Compression and gauze Patient tolerated procedure well Assessment/Plan Aerobic and anaerobic cultures venous study Active Problems Non-pressure ulcer of right lower extremity with fat layer exposed (Acute) Traumatic open wound of right lower leg (Acute) Traumatic open wound of right lower leg with delayed healing (Acute) Assessment: Pressure ulcer right lateral lower leg. Lymphedema bilateral lower legs. Traumatic wound right lateral lower leg Plan: Patient is up-to-date on his tetanus. Wash the wound with antibacterial soap apply Aquacel extra gauze and [place]. Double layer Tubigrip to the lower extremity. We will call with results of his cultures. Patient will be scheduled for a venous study
[2019-03-09 13:01] LABS: Absolute Neutrophil Count 5.5 X10^3/uL (2.0-7.7); Basophil# 0.03 X10^3/uL; Basophil% 0.4 % (0-1); Eosinophil# 0.27 X10^3/uL; Eosinophils% 3.8 % (0-5); Hematocrit 29.2 % (40-54); Hemoglobin 9.2 g/dl (13.0-16.5); Lymphocyte % 12.5 % (19-41); Mean Corp Hgb Conc 31.5 g/gl (32-36); Mean Corpuscular Hgb 30.2 pg (27.0-32.0); Mean Corpuscular Volume 95.7 fL (80-94); Mean Platelet Vol. 10.1 fl (6.2-12.0); Monocyte# 0.44 X10^3/uL; Monocyte% 6.1 % (0-10); Neutrophil # 5.52 X10^3/uL (2.7-7.7); Neutrophil % 76.9 % (47-70); Platelet Count 135 K/mm3 (150-450); RBC Distribution Width CV 18.4 % (11.6-14.6); RBC Distribution Width SD 63.5 fl (35.1-43.9); Red Blood Count 3.05 M/mm3 (4.6-6.2); White Blood Count 7.2 K/mm3 (4.4-11.0)
[2019-03-09 13:02] LABS: POSITIVE COUNT NO; POSITIVE DIFFERENTIAL NO; POSITIVE MORPHOLOGY NO
[2019-03-09 13:11] LABS: Hemoglobin A1c 6.4 % (4.2-6.3)
[2019-03-09 13:51] LABS: Prealbumin 27.4 mg/dL (20.0-40.0)
[2019-03-16 09:49] VITALS: BP 129/63; PULSE 66; RESP 18; TEMP 36.5; BMI 41.8
--- NOTE | 2019-03-16 10:33 | PCM.WC.PN ---
(1) Non-pressure ulcer of right lower extremity with fat layer exposed Status: Acute Current Visit: Yes Code(s): L97.912 - Non-pressure chronic ulcer of unspecified part of right lower leg with fat layer exposed (2) DEVAN (acute kidney injury) Status: Acute Current Visit: Yes Code(s): N17.9 - Acute kidney failure, unspecified (3) BMI 33.0-33.9,adult Status: Chronic Current Visit: Yes Code(s): Z68.33 - Body mass index (BMI) 33.0-33.9, adult (4) CKD (chronic kidney disease), stage III Status: Chronic Current Visit: Yes Code(s): N18.3 - Chronic kidney disease, stage 3 (moderate) (5) Diabetes Status: Chronic Current Visit: Yes Qualifiers: Code(s): E11.9 - Type 2 diabetes mellitus without complications (6) Hyperlipidemia Status: Chronic Current Visit: Yes Qualifiers: Code(s): E78.5 - Hyperlipidemia, unspecified (7) Hypertension Status: Chronic Current Visit: Yes Qualifiers: Code(s): I10 - Essential (primary) hypertension (8) Traumatic open wound of right lower leg Status: Acute Current Visit: Yes Code(s): S81.801A - Unspecified open wound, right lower leg, initial encounter (9) Traumatic open wound of right lower leg with delayed healing Status: Acute Current Visit: Yes Code(s): S81.801D - Unspecified open wound, right lower leg, subsequent encounter Type of Wound Chief Complaint: Follow-up on wound on the right lower leg History of Wound: 68-year-old obese white male that lives alone caught his car door on the bottom of his leg avulsion laceration. Was seen in the emergency room on March 03 was not sutured. Patient suffers from acute renal and chronic renal failure with stage III lymphedema of the lower extremities. Patient is diabetic and hypertensive blood sugars are fairly controlled. Progress of Wound: Today the wound is much smaller on the right lateral leg still losing a lot of clear to yellowish clear fluid. Patient was approved for a skin substitute puraply #1 will be applied to the right lateral lower leg. Bacteria that was found was rare on his right lateral leg patient was not treated for rare. No anaerobes noted - Physical Exam Vital Signs Temp Pulse Resp BP 97.7 F L 66 18 129/63 H 03/16/19 09:49 03/16/19 09:49 03/16/19 09:49 03/16/19 09:49 General: Oriented x3, Cooperative, Well developed HEENT: Atraumatic, PERRLA Oral: Moist Mucosa Neck: Supple, No JVD Lungs: Clear to auscultation, Normal air movement Cardiovascular: Regular rate, Regular Rhythm Abdomen: Bowel Sounds Present, Soft, Non Tender, No Hepato-splenomegaly Extremities: No clubbing, No edema, - - Right lateral lower leg wound Wound Measurements and Assessment WC - Nurse 1 - General Ulcer Measurement Start: 03/09/19 09:08 Freq: Status: Active Protocol: Activity Type Activity Date Activity User E-Sign Co-Sign Detail Recorded Client Recorded Date Recorded By Document 03/16/19 09:49 SALOME [id number] 03/16/19 09:55 SALOME 03/16/19 09:49 Wound Center Nurse 1 [Ulcer Assessment] #1- RT LATERAL LEG -Combined with other wound No -Current Size (cm) - Length 3.0 -Current Size (cm) - Width 2.1 -Current Size (cm) - Depth 0.2 -Total Square Cm 6.30 -Photo Taken No -Epithelialization Small 1-33% -Tunneling No -Undermining/Tunneling No -Circular Undermining No -Exudate Amt Medium -Exudate Type Serosanguineous -Wound Margin Flat & Intact -Granulation Amt Medium (34-66%) -Granulation Quality Red -Slough/Fibrin Yes -Necrosis Amt Small (1-33%) -Necrotic Tissue Type Adherent Slough -Structure Exposed N/A -Texture (Monica-wound Skin Appearance) Assessed Localized Edema -Moisture (Monica-wound Skin Appearance Assessed ) Dry/Scaly -Color (Monica-wound Skin Appearance) Assessed -Temperature (Monica-wound Skin No Abnormality Appearance) (Pt Warm) -Tenderness on Palpation (Monica-wound No Skin Appearance) -Ulcer Cleansing Rinsed/ Irrigated with Saline -Foul Odor after Cleansing No -Anesthetic Used 4% Lidocaine Solution [Edema Assessment] -Lower Limb Edema Present Yes -Right Calf (cm) 56.7 -Right Ankle (cm) 36.3 -Left Calf (cm) 57.5 -Left Ankle (cm) 37.7 WC - Nurse 2 - General Ulcer CM Notes Start: 03/09/19 09:08 Freq: Status: Active Protocol: Activity Type Activity Date Activity User E-Sign Co-Sign Detail Recorded Client Recorded Date Recorded By Document 03/16/19 10:08 MW [id number] 03/16/19 10:12 MW 03/16/19 10:08 Wound Center Nurse 2 [Procedure/Treatment] #1- RT LATERAL LEG -Time 10:10 -Correct Patient Yes -Correct Side, Site, Position Yes -Correct Procedure Yes -Procedure Performed Yes -Type of Procedure Debridement -Clinical Debridement Subcutaneous -Post Debridement Size (cm) - Length 1.3 -Post Debridement Size (cm) - Width 1.3 -Post Debridement Size (cm) - Depth 0.2 -Total Square Cm 1.69 -Wound/Ulcer Outcome Not Healed -Ulcer Cleansing Rinsed/ Irrigated with Saline -Foul Odor after Cleansing No -Bioengineered Tissue Yes -Type of bioengineered Tissue [id number] -Expiration Date 07/20/21 -Product Lot Number [id number] -Percent Used 100 -Saline Lot Number [id number] -Bleeding Controlled with Pressure -Offloading No -Treatment Response Procedure Tolerated Well [See Physician Procedure note for Specifics] Pain Scale: 0-10 Numeric [Pain] -Is Patient Pain Free? Yes Musculoskeletal: No Tenderness to Palpation of Joints or Extremities Lymphatic: No Cervical, Supraclavicular, or Inguinal Adenopathy Neurological: Cranial nerves II-XII grossly intact, Neuro grossly intact Psych/Mental Status: Normal Affect, Appropriate Debridement Note Post-Debridement Measurements/Treatment WC - Nurse 2 - General Ulcer CM Notes Start: 03/09/19 09:08 Freq: Status: Active Protocol: Activity Type Activity Date Activity User E-Sign Co-Sign Detail Recorded Client Recorded Date Recorded By Document 03/09/19 09:50 MW [id number] 03/09/19 09:59 MW Document 03/16/19 10:08 MW [id number] 03/16/19 10:12 MW 03/09/19 03/16/19 09:50 10:08 Wound Center Nurse 2 #1- RT LATERAL LEG -Time 09:56 10:10 -Correct Patient Yes Yes -Correct Side, Site, Position Yes Yes -Correct Procedure Yes Yes -Procedure Performed Yes Yes -Type of Procedure Debridement Debridement -Clinical Debridement Subcutaneous Subcutaneous -Post Debridement Size (cm) - Length 3.4 1.3 -Post Debridement Size (cm) - Width 3.0 1.3 -Post Debridement Size (cm) - Depth 0.3 0.2 -Total Square Cm 10.20 1.69 -Wound/Ulcer Outcome Not Healed Not Healed -Ulcer Cleansing Rinsed/ Rinsed/ Irrigated with Irrigated with Saline Saline -Foul Odor after Cleansing No No -Bioengineered Tissue No Yes -Type of bioengineered Tissue [id number] -Expiration Date 07/20/21 -Product Lot Number [id number] -Percent Used 100 -Saline Lot Number [id number] -Bleeding Controlled with Pressure Pressure -Offloading No No -Treatment Response Procedure Procedure Tolerated Well Tolerated Well Pain Scale: 0-10 Numeric Is Patient Pain Free? Yes Yes Wound debrided: Right lateral lower leg wound Type of Debridement: Excisional debridement Anesthesia Used: 5% Lidocaine Gel Depth: Down to and including healthy tissue, in the subcutaneous layer Instrument Used: 5mm curette Tissue Removed: Fibrin Severity: Fat Layer Exposed Amount of bleeding with debridement: Mild Bleeding Controlled with: Compression and gauze Patient tolerated procedure well Assessment/Plan Active Problems Non-pressure ulcer of right lower extremity with fat layer exposed (Acute) Traumatic open wound of right lower leg (Acute) Traumatic open wound of right lower leg with delayed healing (Acute) DEVAN (acute kidney injury) (Acute) CKD (chronic kidney disease), stage III (Chronic) Diabetes (Chronic) Hypertension (Chronic) Hyperlipidemia (Chronic) BMI 33.0-33.9,adult (Chronic) Assessment: Pressure ulcer right lateral lower leg. Lymphedema bilateral lower legs. Traumatic wound right lateral lower leg Plan: Patient is up-to-date on his tetanus. Applied puraply #1 to right lateral lower leg keep covered may change the outside dressing only. 6 inch Rickey wraps to the lower extremity. Follow-up in 1 week. Patient will be scheduled for a venous study
--- NOTE | 2019-03-16 10:37 | PN.PCM_ITS ---
(1) Non-pressure ulcer of right lower extremity with fat layer exposed Status: Acute Current Visit: Yes Code(s): L97.912 - Non-pressure chronic ulcer of unspecified part of right lower leg with fat layer exposed (2) DEVAN (acute kidney injury) Status: Acute Current Visit: Yes Code(s): N17.9 - Acute kidney failure, unspecified (3) BMI 33.0-33.9,adult Status: Chronic Current Visit: Yes Code(s): Z68.33 - Body mass index (BMI) 33.0-33.9, adult (4) CKD (chronic kidney disease), stage III Status: Chronic Current Visit: Yes Code(s): N18.3 - Chronic kidney disease, stage 3 (moderate) (5) Diabetes Status: Chronic Current Visit: Yes Qualifiers: Code(s): E11.9 - Type 2 diabetes mellitus without complications (6) Hyperlipidemia Status: Chronic Current Visit: Yes Qualifiers: Code(s): E78.5 - Hyperlipidemia, unspecified (7) Hypertension Status: Chronic Current Visit: Yes Qualifiers: Code(s): I10 - Essential (primary) hypertension (8) Traumatic open wound of right lower leg Status: Acute Current Visit: Yes Code(s): S81.801A - Unspecified open wound, right lower leg, initial encounter (9) Traumatic open wound of right lower leg with delayed healing Status: Acute Current Visit: Yes Code(s): S81.801D - Unspecified open wound, right lower leg, subsequent encounter Type of Wound Chief Complaint: Follow-up on wound on the right lower leg History of Wound: 68-year-old obese white male that lives alone caught his car door on the bottom of his leg avulsion laceration. Was seen in the emergency room on March 03 was not sutured. Patient suffers from acute renal and chronic renal failure with stage III lymphedema of the lower extremities. Patient is diabetic and hypertensive blood sugars are fairly controlled. Progress of Wound: Today the wound is much smaller on the right lateral leg still losing a lot of clear to yellowish clear fluid. Patient was approved for a skin substitute puraply #1 will be applied to the right lateral lower leg. Bacteria that was found was rare on his right lateral leg patient was not tr eated for rare. No anaerobes noted - Physical Exam Vital Signs Temp Pulse Resp BP 97.7 F L 66 18 129/63 H 03/16/19 09:49 03/16/19 09:49 03/16/19 09:49 03/16/19 09:49 General: Oriented x3, Cooperative, Well developed HEENT: Atraumatic, PERRLA Oral: Moist Mucosa Neck: Supple, No JVD Lungs: Clear to auscultation, Normal air movement Cardiovascular: Regular rate, Regular Rhythm Abdomen: Bowel Sounds Present, Soft, Non Tender, No Hepato-splenomegaly Extremities: No clubbing, No edema, - - Right lateral lower leg wound Wound Measurements and Assessment WC - Nurse 1 - General Ulcer Measurement Start: 03/09/19 09:08 Freq: Status: Active Protocol: Activity Type Activity Date Activity User E-Sign Co-Sign Detail Recorded Client Recorded Date Recorded By Document 03/16/19 09:49 [id number] 03/16/19 09:55 SALOME 03/16/19 09:49 Wound Center Nurse 1 [Ulcer Assessment] #1- RT LATERAL LEG -Combined with other wound No -Current Size (cm) - Length 3.0 -Current Size (cm) - Width 2.1 -Current Size (cm) - Depth 0.2 -Total Square Cm 6.30 -Photo Taken No -Epithelialization Small 1-33% -Tunneling No -Undermining/Tunneling No -Circular Undermining No -Exudate Amt Medium -Exudate Type Serosanguineous -Wound Margin Flat & Intact -Granulation Amt Medium (34-66%) -Granulation Quality Red -Slough/Fibrin Yes -Necrosis Amt Small (1-33%) -Necrotic Tissue Type Adherent Slough -Structure Exposed N/A -Texture (Monica-wound Skin Appearance) Assessed Localized Edema -Moisture (Monica-wound Skin Appearance Assessed ) Dry/Scaly -Color (Monica-wound Skin Appearance) Assessed -Temperature (Monica-wound Skin No Abnormality Appearance) (Pt Warm) -Tenderness on Palpation (Monica-wound No Skin Appearance) -Ulcer Cleansing Rinsed/ Irrigated with Saline -Foul Odor after Cleansing No -Anesthetic Used 4% Lidocaine Solution [Edema Assessment] -Lower Limb Edema Present Yes -Right Calf (cm) 56.7 -Right Ankle (cm) 36.3 -Left Calf (cm) 57.5 -Left Ankle (cm) 37.7 WC - Nurse 2 - General Ulcer CM Notes Start: 03/09/19 09:08 Freq: Status: Active Protocol: Activity Type Activity Date Activity User E-Sign Co-Sign Detail Recorded Client Recorded Date Recorded By Document 03/16/19 10:08 MW [id number] 03/16/19 10:12 MW 03/16/19 10:08 Wound Center Nurse 2 [Procedure/Treatment] #1- RT LATERAL LEG -Time 10:10 -Correct Patient Yes -Correct Side, Site, Position Yes -Correct Procedure Yes -Procedure Performed Yes -Type of Procedure Debridement -Clinical Debridement Subcutaneous -Post Debridement Size (cm) - Length 1.3 -Post Debridement Size (cm) - Width 1.3 -Post Debridement Size (cm) - Depth 0.2 -Total Square Cm 1.69 -Wound/Ulcer Outcome Not Healed -Ulcer Cleansing Rinsed/ Irrigated with Saline -Foul Odor after Cleansing No -Bioengineered Tissue Yes -Type of bioengineered Tissue [id number] -Expiration Date 07/20/21 -Product Lot Number [id number] -Percent Used 100 -Saline Lot Number [id number] -Bleeding Controlled with Pressure -Offloading No -Treatment Response Procedure Tolerated Well [See Physician Procedure note for Specifics] Pain Scale: 0-10 Numeric [Pain] -Is Patient Pain Free? Yes Musculoskeletal: No Tenderness to Palpation of Joints or Extremities Lymphatic: No Cervical, Supraclavicular, or Inguinal Adenopathy Neurological: Cranial nerves II-XII grossly intact, Neuro grossly intact Psych/Mental Status: Normal Affect, Appropriate Debridement Note Post-Debridement Measurements/Treatment WC - Nurse 2 - General Ulcer CM Notes Start: 03/09/19 09:08 Freq: Status: Active Protocol: Activity Type Activity Date Activity User E-Sign Co-Sign Detail Recorded Client Recorded Date Recorded By Document 03/09/19 09:50 MW [id number] 03/09/19 09:59 MW Document 03/16/19 10:08 MW [id number] 03/16/19 10:12 MW 03/09/19 03/16/19 09:50 10:08 Wound Center Nurse 2 #1- RT LATERAL LEG -Time 09:56 10:10 -Correct Patient Yes Yes -Correct Side, Site, Position Yes Yes -Correct Procedure Yes Yes -Procedure Performed Yes Yes -Type of Procedure Debridement Debridement -Clinical Debridement Subcutaneous Subcutaneous -Post Debridement Size (cm) - Length 3.4 1.3 -Post Debridement Size (cm) - Width 3.0 1.3 -Post Debridement Size (cm) - Depth 0.3 0.2 -Total Square Cm 10.20 1.69 -Wound/Ulcer Outcome Not Healed Not Healed -Ulcer Cleansing Rinsed/ Rinsed/ Irrigated with Irrigated with Saline Saline -Foul Odor after Cleansing No No -Bioengineered Tissue No Yes -Type of bioengineered Tissue [id number] -Expiration Date 07/20/21 -Product Lot Number [id number] -Percent Used 100 -Saline Lot Number [id number] -Bleeding Controlled with Pressure Pressure -Offloading No No -Treatment Response Procedure Procedure Tolerated Well Tolerated Well Pain Scale: 0-10 Numeric Is Patient Pain Free? Yes Yes Wound debrided: Right lateral lower leg wound Type of Debridement: Excisional debridement Anesthesia Used: 5% Lidocaine Gel Depth: Down to and including healthy tissue, in the subcutaneous layer Instrument Used: 5mm curette Tissue Removed: Fibrin Severity: Fat Layer Exposed Amount of bleeding with debridement: Mild Bleeding Controlled with: Compression and gauze Patient tolerated procedure well Assessment/Plan Active Problems Non-pressure ulcer of right lower extremity with fat layer exposed (Acute) Traumatic open wound of right lower leg (Acute) Traumatic open wound of right lower leg with delayed healing (Acute) DEVAN (acute kidney injury) (Acute) CKD (chronic kidney disease), stage III (Chronic) Diabetes (Chronic) Hypertension (Chronic) Hyperlipidemia (Chronic) BMI 33.0-33.9,adult (Chronic) Assessment: Pressure ulcer right lateral lower leg. Lymphedema bilateral lower legs. Traumatic wound right lateral lower leg Plan: Patient is up-to-date on his tetanus. Applied puraply #1 to right lateral lower leg keep covered may change the outside dressing only. 6 inch [place] wraps to the lower extremity. Follow-up in 1 week. Patient will be scheduled for a venous study
[2019-03-23 12:52] VITALS: BP 144/69; PULSE 68; RESP 18; TEMP 36.8; BMI 41.8
--- NOTE | 2019-03-23 14:41 | HP.PCM_ITS ---
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 Was seen in the emergency room on March 03 was not sutured. Patient suffers from acute renal and chronic renal failure with stage III lymphedema of the lower extremities. Patient is diabetic and hypertensive blood sugars are fairly controlled. He is seen today as a courtesy visit for Zabrina Connell CNP. Past Medical History Past Medical History: Chronic Problems Non-pressure ulcer of right lower extremity with fat layer exposed (Chronic) Traumatic open wound of right lower leg with delayed healing (Chronic) CKD (chronic kidney disease), stage III (Chronic) Diabetes (Chronic) Hypertension (Chronic) Hyperlipidemia (Chronic) BMI 33.0-33.9,adult (Chronic) Surgical History: cataract Allergies/Adverse Reactions: Allergies ARB-Angiotensin Receptor Antagonist Allergy (Verified 03/09/19 09:39) Other WORSENS RENAL FUNCTION amoxicillin Adverse Reaction (Verified 03/09/19 09:39) Upset Stomach Home Medications: Ambulatory Orders Medication Instructions Recorded Aspirin [Aspirin, Baby] 81 mg PO DAILY 03/03/15 Atorvastatin Calcium [Lipitor] 40 mg PO DAILY 03/03/15 Fluticasone 0.05% [Flonase Nasal 2 spray NASAL DAILY 12/31/15 [place]] Insulin Glargine,Hum.rec.anlog 40 unit SQ BREAKFAST 12/31/15 [Lantus] Pioglitazone [Actos] 30 mg PO DAILY 12/31/15 Sitagliptin Phosphate [Januvia] 12.5 mg PO DAILY 11/03/16 Allopurinol [Zyloprim] 100 mg PO DAILYCM 03/03/19 Carvedilol [Coreg] 50 mg PO BID 03/03/19 Cholecalciferol (VIT D3) [Vitamin 1,000 unit PO SUWESA 03/03/19 D3] Clonidine HCl [Catapres] 0.3 mg PO BID 03/03/19 Insulin Aspart [Novolog Flexpen] 16 units SC BIDCM 03/03/19 Insulin Glargine,Hum.rec.anlog 30 unit SQ DINNER 03/03/19 [Lantus] Isosorbide Mononitrate [Isosorbide 120 mg PO DAILY 03/03/19 Mononitrate ER] Repaglinide [Prandin] 4 mg PO TID 03/03/19 Torsemide [Demadex] 20 mg PO DINNER 03/03/19 Torsemide [Demadex] 40 mg PO BREAKFAST 03/03/19 Umeclidinium Brm/Vilanterol Tr 1 each IH DAILY 03/03/19 [Anoro Ellipta 62.5-25 Mcg INH] hydrALAZINE [Apresoline] 25 mg PO TID 03/03/19 - Family History Sibling Heart Disease Paternal Cancer, Diabetes Maternal Heart Disease, Hypertension Smoking Status: Former smoker Tobacco Use: Non-smoker Alcohol: None Drugs: None Review of Systems Constitutional: Denies: Chills, Fever, Weight Change Eyes: Denies: Pain, Vision Change HEENT: Denies: Difficulty Hearing, Difficulty Swallowing, Sinus Congestion Cardiovascular: Denies: Chest Pain, Palpitations Respiratory: Denies: Cough, Shortness of Breath Gastrointestinal: Denies: Diarrhea, Nausea, Vomiting Genitourinary: Denies: Dysuria, Hematuria Skin: Reports: Wounds Endocrine: Denies: Heat/ Cold Intolerance, Polydipsia, Polyuria Hematologic/ Lymphatic: Denies: Easy Bruising, Easy Bleeding - Physical Exam Vital Signs Temp Pulse Resp BP 98.2 F 68 18 144/69 H 03/23/19 12:52 03/23/19 12:52 03/23/19 12:52 03/23/19 12:52 General: Alert, Oriented x3, Cooperative, No apparent distress HEENT: Atraumatic, Normocephalic Oral: Moist Mucosa Lungs: Clear to auscultation Cardiovascular: Regular rate, Regular Rhythm Abdomen: Soft, Non Tender Extremities: Edema Skin: Ulcer/ Wound Wound Measurements and Assessment WC - Nurse 1 - General Ulcer Measurement Start: 03/09/19 09:08 Freq: Status: Active Protocol: Activity Type Activity Date Activity User E-Sign Co-Sign Detail Recorded Client Recorded Date Recorded By Document 03/23/19 12:52 RB [id number] 03/23/19 12:54 RB 03/23/19 12:52 Wound Center Nurse 1 [Ulcer Assessment] #1- RT LATERAL LEG -Combined with other wound No -Current Size (cm) - Length 1.3 -Current Size (cm) - Width 1.5 -Current Size (cm) - Depth 0.4 -Total Square Cm 1.95 -Tunneling No -Undermining/Tunneling No -Circular Undermining No -Exudate Amt Small -Exudate Type Serosanguineous -Wound Margin Distinct, Outline Attached -Granulation Amt Medium (34-66%) -Granulation Quality [place],Red -Slough/Fibrin Yes -Necrosis Amt Medium (34-66%) -Necrotic Tissue Type Adherent Slough -Structure Exposed N/A -Texture (Monica-wound Skin Appearance) Assessed -Color (Monica-wound Skin Appearance) Assessed -Temperature (Monica-wound Skin No Abnormality Appearance) (Pt Warm) -Tenderness on Palpation (Monica-wound No Skin Appearance) -Ulcer Cleansing Rinsed/ Irrigated with Saline -Foul Odor after Cleansing No -Anesthetic Used 4% Lidocaine Solution [Edema Assessment] -Lower Limb Edema Present Yes -Right Calf (cm) 57.5 -Right Ankle (cm) 31.2 -Left Calf (cm) 58 -Left Ankle (cm) 31.5 WC - Nurse 2 - General Ulcer CM Notes Start: 03/09/19 09:08 Freq: Status: Active Protocol: Activity Type Activity Date Activity User E-Sign Co-Sign Detail Recorded Client Recorded Date Recorded By Document 03/23/19 13:20 AN [id number] 03/23/19 13:32 AN 03/23/19 13:20 Wound Center Nurse 2 [Procedure/Treatment] #1- RT LATERAL LEG -Time 13:21 -Correct Patient Yes -Correct Side, Site, Position Yes -Correct Procedure Yes -Procedure Performed Yes -Type of Procedure Debridement -Clinical Debridement Subcutaneous -Post Debridement Size (cm) - Length 1.9 -Post Debridement Size (cm) - Width 1.6 -Post Debridement Size (cm) - Depth 0.5 -Total Square Cm 3.04 -Wound/Ulcer Outcome Not Healed -Ulcer Cleansing Rinsed/ Irrigated with Saline -Foul Odor after Cleansing No -Bioengineered Tissue Yes -Type of bioengineered Tissue [id number] -Bleeding Controlled with Pressure -Treatment Response Procedure Tolerated Well [See Physician Procedure note for Specifics] Pain Scale: 0-10 Numeric [Pain] -Is Patient Pain Free? Yes Psych/Mental Status: Normal Affect, Appropriate Debridement Note Post-Debridement Measurements/Treatment WC - Nurse 2 - General Ulcer CM Notes Start: 03/09/19 09:08 Freq: Status: Active Protocol: Activity Type Activity Date Activity User E-Sign Co-Sign Detail Recorded Client Recorded Date Recorded By Document 03/09/19 09:50 MW [id number] 03/09/19 09:59 MW Document 03/16/19 10:08 MW [id number] 03/16/19 10:12 MW Document 03/23/19 13:20 AN [id number] 03/23/19 13:32 AN 03/09/19 03/16/19 03/23/19 09:50 10:08 13:20 Wound Center Nurse 2 #1- RT LATERAL LEG -Time 09:56 10:10 13:21 -Correct Patient Yes Yes Yes -Correct Side, Site, Position Yes Yes Yes -Correct Procedure Yes Yes Yes -Procedure Performed Yes Yes Yes -Type of Procedure Debridement Debridement Debridement -Clinical Debridement Subcutaneous Subcutaneous Subcutaneous -Post Debridement Size (cm) - Length 3.4 1.3 1.9 -Post Debridement Size (cm) - Width 3.0 1.3 1.6 -Post Debridement Size (cm) - Depth 0.3 0.2 0.5 -Total Square Cm 10.20 1.69 3.04 -Wound/Ulcer Outcome Not Healed Not Healed Not Healed -Ulcer Cleansing Rinsed/ Rinsed/ Rinsed/ Irrigated with Irrigated with Irrigated with Saline Saline Saline -Foul Odor after Cleansing No No No -Bioengineered Tissue No Yes Yes -Type of bioengineered Tissue [id number] -Expiration Date 07/20/21 -Product Lot Number [id number] -Percent Used 100 -Saline Lot Number [id number] -Bleeding Controlled with Pressure Pressure Pressure -Offloading No No -Treatment Response Procedure Procedure Procedure Tolerated Well Tolerated Well Tolerated Well Pain Scale: 0-10 Numeric Is Patient Pain Free? Yes Yes Yes Wound debrided: right lateral leg Laterality: Right Type of Debridement: Excisional debridement Anesthesia Used: 4% Lidocaine Solution Depth: Down to and including healthy tissue, in the subcutaneous layer Percentage of wound debrided: 100 Instrument Used: 5mm curette Tissue Removed: yellow slough, devitalized tissue Severity: Fat Layer Exposed Amount of bleeding with debridement: Mild Bleeding Controlled with: Compression and gauze Patient tolerated procedure well Assessment/Plan Active Problems Non-pressure ulcer of right lower extremity with fat layer exposed (Chronic) Traumatic open wound of right lower leg (Acute) Traumatic open wound of right lower leg with delayed healing (Chronic) DEVAN (acute kidney injury) (Acute) CKD (chronic kidney disease), stage III (Chronic) Diabetes (Chronic) Hypertension (Chronic) Hyperlipidemia (Chronic) BMI 33.0-33.9,adult (Chronic) Assessment: Pressure ulcer right lateral lower leg. Lymphedema bilateral lower legs. Traumatic wound right lateral lower leg Plan: Patient is up-to-date on his tetanus. Applied puraply #2 to right lateral lower leg keep covered may change the outside dressing only. 6 inch Rickey wraps to the lower extremity. Follow-up in 1 week. Patient will be scheduled for a venous study
[2019-03-30 11:09] VITALS: BP 133/59; PULSE 71; RESP 18; TEMP 36.1; BMI 41.8
--- NOTE | 2019-03-30 12:38 | PN.PCM_ITS ---
(1) Non-pressure ulcer of right lower extremity with fat layer exposed Status: Chronic Current Visit: Yes Code(s): L97.912 - Non-pressure chronic ulcer of unspecified part of right lower leg with fat layer exposed (2) DEVAN (acute kidney injury) Status: Acute Current Visit: Yes Code(s): N17.9 - Acute kidney failure, unspecified (3) BMI 33.0-33.9,adult Status: Chronic Current Visit: Yes Code(s): Z68.33 - Body mass index (BMI) 33.0-33.9, adult (4) CKD (chronic kidney disease), stage III Status: Chronic Current Visit: Yes Code(s): N18.3 - Chronic kidney disease, stage 3 (moderate) (5) Diabetes Status: Chronic Current Visit: Yes Qualifiers: 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 Diabetes mellitus complication status: with other specified complication Code(s): E11.9 - Type 2 diabetes mellitus without complications (6) Hyperlipidemia Status: Chronic Current Visit: Yes Qualifiers: Code(s): E78.5 - Hyperlipidemia, unspecified (7) Hypertension Status: Chronic Current Visit: Yes Qualifiers: Code(s): I10 - Essential (primary) hypertension (8) Traumatic open wound of right lower leg Status: Acute Current Visit: Yes Code(s): S81.801A - Unspecified open wound, right lower leg, initial encounter (9) Traumatic open wound of right lower leg with delayed healing Status: Chronic Current Visit: Yes Code(s): S81.801D - Unspecified open wound, right lower leg, subsequent encounter Type of Wound Date of Service: 03/30/19 Chief Complaint: Follow-up on wound on the right lower leg History of Wound: 68-year-old obese white male that lives alone caught his car door on the bottom of his leg avulsion laceration. Was seen in the emergency room on March 03 was not sutured. Patient suffers from acute renal and chronic renal failure with stage III lymphedema of the lower extremities. Patient is diabetic and hypertensive blood sugars are fairly controlled. He is seen today as a courtesy visit for Zabrina Connell CNP. Progress of Wound: Today the wound is a little smaller receiving his puraply #3 today tolerating treatments well still has a lot of edema in the lower leg but does suffer from lymphedema. Patient will follow-up in a week - Physical Exam Vital Signs Temp Pulse Resp BP 97 F L 71 18 133/59 H 03/30/19 11:09 03/30/19 11:09 03/30/19 11:09 03/30/19 11:09 General: Oriented x3, Cooperative, Well developed HEENT: Atraumatic, PERRLA Oral: Moist Mucosa Neck: Supple, No JVD Lungs: Clear to auscultation, Normal air movement Cardiovascular: Regular rate, Regular Rhythm Abdomen: Bowel Sounds Present, Soft, Non Tender, No Hepato-splenomegaly Extremities: No clubbing, No edema, Edema Skin: Ulcer/ Wound - Traumatic wound to right lateral lower leg Wound Measurements and Assessment WC - Nurse 1 - General Ulcer Measurement Start: 03/09/19 09:08 Freq: Status: Active Protocol: Activity Type Activity Date Activity User E-Sign Co-Sign Detail Recorded Client Recorded Date Recorded By Document 03/30/19 11:09 [id number] 03/30/19 11:20 RB 03/30/19 11:09 Wound Center Nurse 1 [Ulcer Assessment] #1- RT LATERAL LEG -Combined with other wound No -Current Size (cm) - Length 1.3 -Current Size (cm) - Width 2 -Current Size (cm) - Depth 0.4 -Total Square Cm 2.6 -Tunneling No -Circular Undermining No -Exudate Amt Medium -Exudate Type Serosanguineous -Wound Margin Thickened & Rolled Under -Granulation Amt Small (1-33%) -Granulation Quality Red -Slough/Fibrin Yes -Necrosis Amt Large (67-100%) -Necrotic Tissue Type Adherent Slough -Structure Exposed N/A -Texture (Monica-wound Skin Appearance) Assessed -Moisture (Monica-wound Skin Appearance Dry/Scaly ) -Color (Monica-wound Skin Appearance) Assessed -Temperature (Monica-wound Skin No Abnormality Appearance) (Pt Warm) -Tenderness on Palpation ([place]-wound No Skin Appearance) -Ulcer Cleansing Wound Cleanser -Foul Odor after Cleansing No -Anesthetic Used 5% Lidocaine Gel [Edema Assessment] -Lower Limb Edema Present Yes -Right Calf (cm) 56.5 -Right Ankle (cm) 36 WC - Nurse 2 - General Ulcer CM Notes Start: 03/09/19 09:08 Freq: Status: Active Protocol: Activity Type Activity Date Activity User E-Sign Co-Sign Detail Recorded Client Recorded Date Recorded By Document 03/30/19 11:41 MW [id number] 03/30/19 11:46 MW 03/30/19 11:41 Wound Center Nurse 2 [Procedure/Treatment] #1- RT LATERAL LEG -Time 11:44 -Correct Patient Yes -Correct Side, Site, Position Yes -Correct Procedure Yes -Procedure Performed Yes -Type of Procedure Debridement -Clinical Debridement Subcutaneous -Post Debridement Size (cm) - Length 1.5 -Post Debridement Size (cm) - Width 1.7 -Post Debridement Size (cm) - Depth 0.7 -Total Square Cm 2.55 -Wound/Ulcer Outcome Not Healed -Ulcer Cleansing Rinsed/ Irrigated with Saline -Foul Odor after Cleansing No -Bioengineered Tissue Yes -Type of bioengineered Tissue [id number] -Expiration Date 05/14/21 -Product Lot Number [id number] -Percent Used 100 -Saline Lot Number [id number] -Bleeding Controlled with Pressure -Offloading No -Treatment Response Procedure Tolerated Well [See Physician Procedure note for Specifics] Pain Scale: 0-10 Numeric [Pain] -Is Patient Pain Free? Yes Musculoskeletal: No Tenderness to Palpation of Joints or Extremities Lymphatic: No Cervical, Supraclavicular, or Inguinal Adenopathy Neurological: Cranial nerves II-XII grossly intact, Neuro grossly intact Psych/Mental Status: Normal Affect, Appropriate Debridement Note Post-Debridement Measurements/Treatment WC - Nurse 2 - General Ulcer CM Notes Start: 03/09/19 09:08 Freq: Status: Active Protocol: Activity Type Activity Date Activity User E-Sign Co-Sign Detail Recorded Client Recorded Date Recorded By Document 03/09/19 09:50 MW [id number] 03/09/19 09:59 MW Document 03/16/19 10:08 MW [id number] 03/16/19 10:12 MW Document 03/23/19 13:20 AN [id number] 03/23/19 13:32 AN Document 03/30/19 11:41 MW [id number] 03/30/19 11:46 MW 03/09/19 03/16/19 03/23/19 09:50 10:08 13:20 Wound Center Nurse 2 #1- RT LATERAL LEG -Time 09:56 10:10 13:21 -Correct Patient Yes Yes Yes -Correct Side, Site, Position Yes Yes Yes -Correct Procedure Yes Yes Yes -Procedure Performed Yes Yes Yes -Type of Procedure Debridement Debridement Debridement -Clinical Debridement Subcutaneous Subcutaneous Subcutaneous -Post Debridement Size (cm) - Length 3.4 1.3 1.9 -Post Debridement Size (cm) - Width 3.0 1.3 1.6 -Post Debridement Size (cm) - Depth 0.3 0.2 0.5 -Total Square Cm 10.20 1.69 3.04 -Wound/Ulcer Outcome Not Healed Not Healed Not Healed -Ulcer Cleansing Rinsed/ Rinsed/ Rinsed/ Irrigated with Irrigated with Irrigated with Saline Saline Saline -Foul Odor after Cleansing No No No -Bioengineered Tissue No Yes Yes -Type of bioengineered Tissue [id number] -Expiration Date 07/20/21 -Product Lot Number [id number] -Percent Used 100 -Saline Lot Number [id number] -Bleeding Controlled with Pressure Pressure Pressure -Offloading No No -Treatment Response Procedure Procedure Procedure Tolerated Well Tolerated Well Tolerated Well Pain Scale: 0-10 Numeric Is Patient Pain Free? Yes Yes Yes 03/30/19 11:41 Wound Center Nurse 2 #1- RT LATERAL LEG -Time 11:44 -Correct Patient Yes -Correct Side, Site, Position Yes -Correct Procedure Yes -Procedure Performed Yes -Type of Procedure Debridement -Clinical Debridement Subcutaneous -Post Debridement Size (cm) - Length 1.5 -Post Debridement Size (cm) - Width 1.7 -Post Debridement Size (cm) - Depth 0.7 -Total Square Cm 2.55 -Wound/Ulcer Outcome Not Healed -Ulcer Cleansing Rinsed/ Irrigated with Saline -Foul Odor after Cleansing No -Bioengineered Tissue Yes -Type of bioengineered Tissue [id number] -Expiration Date 05/14/21 -Product Lot Number [id number] -Percent Used 100 -Saline Lot Number [id number] -Bleeding Controlled with Pressure -Offloading No -Treatment Response Procedure Tolerated Well Pain Scale: 0-10 Numeric Is Patient Pain Free? Yes Wound debrided: Right lateral lower leg Type of Debridement: Excisional debridement Anesthesia Used: 5% Lidocaine Gel Depth: Down to and including healthy tissue, in the subcutaneous layer Percentage of wound debrided: 100 Instrument Used: 5mm curette Tissue Removed: Fibrin Severity: Limited To Skin Breakdown Amount of bleeding with debridement: Mild Bleeding Controlled with: Compression and gauze Patient tolerated procedure well Assessment/Plan Active Problems Non-pressure ulcer of right lower extremity with fat layer exposed (Chronic) Traumatic open wound of right lower leg (Acute) Traumatic open wound of right lower leg with delayed healing (Chronic) DEVAN (acute kidney injury) (Acute) CKD (chronic kidney disease), stage III (Chronic) Diabetes (Chronic) Hypertension (Chronic) Hyperlipidemia (Chronic) BMI 33.0-33.9,adult (Chronic) Assessment: Nonhealing nonsurgical wound left lower leg. Lymphedema bilateral lower legs. Traumatic wound right lateral lower leg Plan: Patient is up-to-date on his tetanus. Applied puraply #3 to right lateral lower leg keep covered may change the outside dressing only. 6 inch Rickey wraps to the lower extremity. Follow-up in 1 week. Patient will be scheduled for a venous study
== END 2019-04-01 23:59 ==
LOC: WC 10:30
PROVIDERS: Family Provider Family Medicine; PCP Family Medicine; Visit Provider Nurse Practitioner
DX: S81.811A Laceration without foreign body, right lower leg, initial encounter (principal); E11.22 Type 2 diabetes mellitus with diabetic chronic kidney disease; N18.3 Chronic kidney disease, stage 3 (moderate); I12.9 Hypertensive chronic kidney disease with stage 1 through stage 4 chronic kidney disease, or unspecified chronic kidney disease; E78.5 Hyperlipidemia, unspecified; E66.9 Obesity, unspecified; Z71.3 Dietary counseling and surveillance; I89.0 Lymphedema, not elsewhere classified; W22.09XA Striking against other stationary object, initial encounter; Z79.4 Long term (current) use of insulin; Z79.899 Other long term (current) drug therapy; Z79.51 Long term (current) use of inhaled steroids; Z87.891 Personal history of nicotine dependence
CPT/HCPCS: 11042; 15271; 83036; 84134; 85025; 87070; 87075; 87077; 87186; 87205; 99213; Q4196; G0463

== ENCOUNTER → 2019-04-09 14:35 | Outpatient (CLI) | payer MEDICARE, OTHER, SELFPAY ==
[2019-04-06 10:06] VITALS: BMI 42.3
[2019-04-09 16:51] LABS: PSA,Total - Annual Screen 0.83 ng/mL (0.00-4.00)
== END ==
PROVIDERS: Family Provider Family Medicine; PCP Family Medicine; Referring Provider Urology; Visit Provider Urology
DX: Z12.5 Encounter for screening for malignant neoplasm of prostate (principal)
CPT/HCPCS: 36415; 84153; G0103

== ENCOUNTER 2019-04-27 10:00 | Outpatient (RCR) | payer MEDICARE, OTHER, SELFPAY ==
[2019-04-02 01:04] VITALS: BP 133/59; PULSE 71; RESP 18; TEMP 36.1
[2019-04-04 12:07] VITALS: BMI 42.3
[2019-04-06 10:06] VITALS: BP 126/64; PULSE 64; RESP 16; TEMP 36.6; BMI 42.3
--- NOTE | 2019-04-06 11:17 | PCM.WC.PN ---
(1) Lymphedema of both lower extremities Status: Chronic Current Visit: Yes Code(s): I89.0 - Lymphedema, not elsewhere classified (2) Non-pressure ulcer of right lower extremity with fat layer exposed Status: Chronic Current Visit: Yes Code(s): L97.912 - Non-pressure chronic ulcer of unspecified part of right lower leg with fat layer exposed (3) Traumatic open wound of right lower leg with delayed healing Status: Chronic Current Visit: Yes Code(s): S81.801D - Unspecified open wound, right lower leg, subsequent encounter Type of Wound Date of Service: 04/06/19 Chief Complaint: Follow-up on wound on the right lower leg History of Wound: 68-year-old obese white male that lives alone caught his car door on the bottom of his leg avulsion laceration. Was seen in the emergency room on March 03 was not sutured. Patient suffers from acute renal and chronic renal failure with stage III lymphedema of the lower extremities. Patient is diabetic and hypertensive blood sugars are fairly controlled. He is seen today as a courtesy visit for Zabrina Connell CNP. Progress of Wound: Today the wound is a little smaller receiving his nushield #4 today tolerating treatments well still has a lot of edema in the lower leg but does suffer from lymphedema. Patient will follow-up in a week - Physical Exam Vital Signs Temp Pulse Resp BP 97.8 F 64 16 126/64 H 04/06/19 10:06 04/06/19 10:06 04/06/19 10:06 04/06/19 10:06 General: Oriented x3, Cooperative, Well developed HEENT: Atraumatic, PERRLA Oral: Moist Mucosa Neck: Supple, No JVD Lungs: Clear to auscultation, Normal air movement Cardiovascular: Regular rate, Regular Rhythm Abdomen: Bowel Sounds Present, Soft, Non Tender, No Hepato-splenomegaly Extremities: No clubbing, No edema Skin: Ulcer/ Wound - Right lateral lower leg traumatic wound Wound Measurements and Assessment WC - Nurse 1 - General Ulcer Measurement Start: 04/06/19 10:06 Freq: Status: Active Protocol: Activity Type Activity Date Activity User E-Sign Co-Sign Detail Recorded Client Recorded Date Recorded By Document 04/06/19 10:06 [facility] [id number] 04/06/19 10:11 [facility] 04/06/19 10:06 Wound Center Nurse 1 [Ulcer Assessment] #1- RT LATERAL LEG -Combined with other wound No -Current Size (cm) - Length 0.7 -Current Size (cm) - Width 1 -Current Size (cm) - Depth 0.4 -Total Square Cm 0.7 -Photo Taken No -Epithelialization None Present -Tunneling No -Undermining/Tunneling No -Circular Undermining No -Exudate Amt Small -Exudate Type Serosanguineous -Wound Margin Flat & Intact -Granulation Amt Small (1-33%) -Granulation Quality Red -Slough/Fibrin Yes -Necrosis Amt Large (67-100%) -Necrotic Tissue Type Adherent Slough -Texture (Monica-wound Skin Appearance) Assessed, Scarring -Moisture (Monica-wound Skin Appearance Assessed, ) Maceration,Dry/ Scaly -Color (Monica-wound Skin Appearance) Assessed, Erythema, Hemosiderin Staining,Palor -Temperature (Monica-wound Skin No Abnormality Appearance) (Pt Warm) -Tenderness on Palpation (Monica-wound No Skin Appearance) -Ulcer Cleansing soap and water -Foul Odor after Cleansing No -Anesthetic Used 4% Lidocaine Solution [Edema Assessment] -Lower Limb Edema Present Yes -Right Calf (cm) 53.2 -Right Ankle (cm) 35.5 WC - Nurse 2 - General Ulcer CM Notes Start: 04/06/19 10:06 Freq: Status: Active Protocol: Activity Type Activity Date Activity User E-Sign Co-Sign Detail Recorded Client Recorded Date Recorded By Document 04/06/19 10:24 MW [id number] 04/06/19 10:33 MW 04/06/19 10:24 Wound Center Nurse 2 [Procedure/Treatment] #1- RT LATERAL LEG -Time 10:25 -Correct Patient Yes -Correct Side, Site, Position Yes -Correct Procedure Yes -Procedure Performed Yes -Type of Procedure Debridement -Clinical Debridement Subcutaneous -Post Debridement Size (cm) - Length 1.0 -Post Debridement Size (cm) - Width 1.0 -Post Debridement Size (cm) - Depth 0.4 -Total Square Cm 1.00 -Wound/Ulcer Outcome Not Healed -Ulcer Cleansing Rinsed/ Irrigated with Saline -Foul Odor after Cleansing No -Bioengineered Tissue Yes -Type of bioengineered Tissue NU-SHIELD -Expiration Date 02/06/24 -Product Lot Number [id number] -Percent Used 100 -Saline Lot Number [id number] -Bleeding Controlled with Pressure -Offloading No -Treatment Response Procedure Tolerated Well [See Physician Procedure note for Specifics] Pain Scale: 0-10 Numeric [Pain] -Is Patient Pain Free? Yes Musculoskeletal: No Tenderness to Palpation of Joints or Extremities Lymphatic: No Cervical, Supraclavicular, or Inguinal Adenopathy Neurological: Cranial nerves II-XII grossly intact, Neuro grossly intact Psych/Mental Status: Normal Affect, Appropriate Debridement Note Post-Debridement Measurements/Treatment WC - Nurse 2 - General Ulcer CM Notes Start: 04/06/19 10:06 Freq: Status: Active Protocol: Activity Type Activity Date Activity User E-Sign Co-Sign Detail Recorded Client Recorded Date Recorded By Document 04/06/19 10:24 MW [id number] 04/06/19 10:33 MW 04/06/19 10:24 Wound Center Nurse 2 #1- RT LATERAL LEG -Time 10:25 -Correct Patient Yes -Correct Side, Site, Position Yes -Correct Procedure Yes -Procedure Performed Yes -Type of Procedure Debridement -Clinical Debridement Subcutaneous -Post Debridement Size (cm) - Length 1.0 -Post Debridement Size (cm) - Width 1.0 -Post Debridement Size (cm) - Depth 0.4 -Total Square Cm 1.00 -Wound/Ulcer Outcome Not Healed -Ulcer Cleansing Rinsed/ Irrigated with Saline -Foul Odor after Cleansing No -Bioengineered Tissue Yes -Type of bioengineered Tissue NU-SHIELD -Expiration Date 02/06/24 -Product Lot Number [id number] -Percent Used 100 -Saline Lot Number [id number] -Bleeding Controlled with Pressure -Offloading No -Treatment Response Procedure Tolerated Well Pain Scale: 0-10 Numeric Is Patient Pain Free? Yes Wound debrided: Lateral lower leg wound Type of Debridement: Excisional debridement Anesthesia Used: 5% Lidocaine Gel Depth: Down to and including healthy tissue, in the subcutaneous layer Percentage of wound debrided: 100 Instrument Used: 5mm curette Tissue Removed: Fibrin and some slough Severity: Limited To Skin Breakdown Amount of bleeding with debridement: Mild Bleeding Controlled with: Compression and gauze Patient tolerated procedure well Assessment/Plan Active Problems (Last Reviewed 04/04/19 @ 13:35 by Vikash Vera MD) Secondary pulmonary arterial hypertension (Chronic) Chronic diastolic (congestive) heart failure (Chronic) Right bundle branch block (RBBB) (Chronic) Lymphedema of both lower extremities (Chronic) Non-pressure ulcer of 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 Lymphedema bilateral lower legs. Traumatic wound right lateral lower leg Plan: Patient is up-to-date on his tetanus. Applied nushield #4 to right lateral lower leg keep covered may change the outside dressing only. 6 inch Rickey wraps to the lower extremity. Follow-up in 1 week. Patient will be scheduled for a venous study
--- NOTE | 2019-04-06 12:44 | VDLE_ITS ---
Reason For Study: edema, ulcer RIGHT LEFT CFV is compressible, spontaneous, phasic, CFV is compressible, spontaneous, phasic, competent and demonstrates normal competent, and demonstrates normal augmentation. augmentation. FV is compressible, spontaneous, phasic, FV is compressible, spontaneous, phasic, competent and demonstrates normal competent and demonstrates normal augmentation. augmentation. POP V is compressible, spontaneous, phasic, POP V is compressible, spontaneous, phasic, competent and demonstrates normal competent and demonstrates normal augmentation. augmentation. T/P Trunk is compressible. T/P Trunk is compressible. PTV is compressible. PTV is compressible. RT PerV is compressible. LT PerV is compressible. S-F Junction is competent. S-F Junction is competent. GSV is competent throughout. GSV is competent above the knee, but SSV is competent. incompetent below the knee for greater Procedure than .5 seconds. GSV measures .36 x .39 cm. Exam performed in department. SSV is competent. The exam was of fair technical quality due to swelling. Patient was scanned in reverse Trendelenburg position during reflux assessment. Interpretation Summary Deep veins of the lower extremities are bilaterally patent and compressible segmentally. There is no evidence of deep vein thrombosis on either side. Valvular competence appears intact within the proximal deep venous systems bilaterally. The greater saphenous veins appear bilaterally patent and compressible segmentally. Sapheno-femoral junctions are bilaterally competent . The right greater saphenous vein appears segmentally competent. The left greater saphenous vein appears competent above the knee. The left greater saphenous vein appears incompetent below the knee. Small saphenous veins are patent and competent bilaterally. Ordering Physician: Zabrina Connell Performed By: Jericho Yeh RVKrys
[2019-04-13 09:51] VITALS: BP 150/69; PULSE 70; RESP 18; TEMP 36.9; BMI 42.3
--- NOTE | 2019-04-13 11:05 | PCM.WC.PN ---
(1) Lymphedema of both lower extremities Status: Chronic Current Visit: Yes Code(s): I89.0 - Lymphedema, not elsewhere classified (2) Non-pressure ulcer of right lower extremity with fat layer exposed Status: Chronic Current Visit: Yes Code(s): L97.912 - Non-pressure chronic ulcer of unspecified part of right lower leg with fat layer exposed (3) Traumatic open wound of right lower leg with delayed healing Status: Chronic Current Visit: Yes Code(s): S81.801D - Unspecified open wound, right lower leg, subsequent encounter Type of Wound Date of Service: 04/13/19 Chief Complaint: Follow-up on wound on the right lower leg History of Wound: 68-year-old obese white male that lives alone caught his car door on the bottom of his leg avulsion laceration. Was seen in the emergency room on March 03 was not sutured. Patient suffers from acute renal and chronic renal failure with stage III lymphedema of the lower extremities. Patient is diabetic and hypertensive blood sugars are fairly controlled. He is seen today as a courtesy visit for Zabrina Connell CNP. Progress of Wound: Today the wound is a little smaller receiving his nushield #5 today tolerating treatments well still has a lot of edema in the lower leg but does suffer from lymphedema. Patient will follow-up in a week developing some superficial skin tears that he is going to use Aquasol on that he has at home. - Physical Exam Vital Signs Temp Pulse Resp BP 98.4 F 70 18 150/69 H 04/13/19 09:51 04/13/19 09:51 04/13/19 09:51 04/13/19 09:51 General: Oriented x3, Cooperative, Well developed HEENT: Atraumatic, PERRLA Oral: Moist Mucosa Neck: Supple, No JVD Lungs: Clear to auscultation, Normal air movement Cardiovascular: Regular rate, Regular Rhythm Abdomen: Bowel Sounds Present, Soft, Non Tender, No Hepato-splenomegaly Extremities: No clubbing, No edema Skin: Ulcer/ Wound Wound Measurements and Assessment WC - Nurse 1 - General Ulcer Measurement Start: 04/06/19 10:06 Freq: Status: Active Protocol: Activity Type Activity Date Activity User E-Sign Co-Sign Detail Recorded Client Recorded Date Recorded By Document 04/13/19 09:51 [facility] [id number] 04/13/19 09:59 [facility] 04/13/19 09:51 Wound Center Nurse 1 [Ulcer Assessment] #1- RT LATERAL LEG -Combined with other wound No -Current Size (cm) - Length 1.2 -Current Size (cm) - Width 1.1 -Current Size (cm) - Depth 0.3 -Total Square Cm 1.32 -Photo Taken No -Epithelialization Small 1-33% -Tunneling No -Undermining/Tunneling No -Circular Undermining No -Exudate Amt Medium -Exudate Type Serosanguineous -Wound Margin Distinct, Outline Attached -Granulation Amt Medium (34-66%) -Granulation Quality Red -Slough/Fibrin Yes -Necrosis Amt Small (1-33%) -Necrotic Tissue Type Adherent Slough -Texture (Monica-wound Skin Appearance) Assessed, Scarring -Moisture (Monica-wound Skin Appearance Assessed, ) Maceration,Dry/ Scaly -Color (Monica-wound Skin Appearance) Erythema, Hemosiderin Staining,Palor -Temperature (Monica-wound Skin No Abnormality Appearance) (Pt Warm) -Tenderness on Palpation (Monica-wound No Skin Appearance) -Ulcer Cleansing Wound Cleanser -Foul Odor after Cleansing No -Anesthetic Used 4% Lidocaine Solution [Edema Assessment] -Lower Limb Edema Present Yes -Right Calf (cm) 56.5 -Right Ankle (cm) 33.5 WC - Nurse 2 - General Ulcer CM Notes Start: 04/06/19 10:06 Freq: Status: Active Protocol: Activity Type Activity Date Activity User E-Sign Co-Sign Detail Recorded Client Recorded Date Recorded By Document 04/13/19 10:13 MW [id number] 04/13/19 10:15 MW 04/13/19 10:13 Wound Center Nurse 2 [Procedure/Treatment] #1- RT LATERAL LEG -Time 10:14 -Correct Patient Yes -Correct Side, Site, Position Yes -Correct Procedure Yes -Procedure Performed Yes -Type of Procedure Debridement -Clinical Debridement Subcutaneous -Post Debridement Size (cm) - Length 0.7 -Post Debridement Size (cm) - Width 0.8 -Post Debridement Size (cm) - Depth 0.3 -Total Square Cm 0.56 -Wound/Ulcer Outcome Not Healed -Ulcer Cleansing Rinsed/ Irrigated with Saline -Foul Odor after Cleansing No -Bioengineered Tissue Yes -Type of bioengineered Tissue NU-SHIELD -Expiration Date 02/09/24 -Product Lot Number [id number] -Percent Used 100 -Saline Lot Number [id number] -Bleeding Controlled with Pressure -Other DONOR #[id number] -Offloading No -Treatment Response Procedure Tolerated Well [See Physician Procedure note for Specifics] Pain Scale: 0-10 Numeric [Pain] -Is Patient Pain Free? Yes Musculoskeletal: No Tenderness to Palpation of Joints or Extremities Lymphatic: No Cervical, Supraclavicular, or Inguinal Adenopathy Neurological: Cranial nerves II-XII grossly intact, Neuro grossly intact Psych/Mental Status: Normal Affect, Appropriate, Alert and oriented to time, place, person, mood and affect Debridement Note Post-Debridement Measurements/Treatment WC - Nurse 2 - General Ulcer CM Notes Start: 04/06/19 10:06 Freq: Status: Active Protocol: Activity Type Activity Date Activity User E-Sign Co-Sign Detail Recorded Client Recorded Date Recorded By Document 04/06/19 10:24 MW [id number] 04/06/19 10:33 MW Document 04/13/19 10:13 MW [id number] 04/13/19 10:15 MW 04/06/19 04/13/19 10:24 10:13 Wound Center Nurse 2 #1- RT LATERAL LEG -Time 10:25 10:14 -Correct Patient Yes Yes -Correct Side, Site, Position Yes Yes -Correct Procedure Yes Yes -Procedure Performed Yes Yes -Type of Procedure Debridement Debridement -Clinical Debridement Subcutaneous Subcutaneous -Post Debridement Size (cm) - Length 1.0 0.7 -Post Debridement Size (cm) - Width 1.0 0.8 -Post Debridement Size (cm) - Depth 0.4 0.3 -Total Square Cm 1.00 0.56 -Wound/Ulcer Outcome Not Healed Not Healed -Ulcer Cleansing Rinsed/ Rinsed/ Irrigated with Irrigated with Saline Saline -Foul Odor after Cleansing No No -Bioengineered Tissue Yes Yes -Type of bioengineered Tissue NU-SHIELD NU-SHIELD -Expiration Date 02/06/24 02/09/24 -Product Lot Number [id number] -Percent Used 100 100 -Saline Lot Number [id number] -Bleeding Controlled with Pressure Pressure -Other DONOR #[id number] -Offloading No No -Treatment Response Procedure Procedure Tolerated Well Tolerated Well Pain Scale: 0-10 Numeric Is Patient Pain Free? Yes Yes Wound debrided: Right lateral lower leg Type of Debridement: Excisional debridement Anesthesia Used: 5% Lidocaine Gel Depth: Down to and including healthy tissue, in the subcutaneous layer Percentage of wound debrided: 100 Instrument Used: 5mm curette Tissue Removed: Fibrin Severity: Limited To Skin Breakdown Amount of bleeding with debridement: Mild Bleeding Controlled with: Compression and gauze Patient tolerated procedure well Assessment/Plan Active Problems (Last Reviewed 04/04/19 @ 13:35 by Vikash Vera MD) Lymphedema of both lower extremities (Chronic) Non-pressure ulcer of 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 Lymphedema bilateral lower legs. Traumatic wound right lateral lower leg Plan: Patient is up-to-date on his tetanus. Applied nushield #5 to right lateral lower leg keep covered may change the outside dressing only. Apply Aquacel silver to the superficial skin tears on the lateral right lower leg daily cover with Adaptic and gauze. 6 inch Rickey wraps to the lower extremity. Follow-up in 1 week. Patient will be scheduled for a venous study
[2019-04-19 13:29] VITALS: BP 159/70; PULSE 79; RESP 18; TEMP 37.4; BMI 42.3
--- NOTE | 2019-04-19 20:27 | PCM.WC.PN ---
(1) Traumatic open wound of right lower leg with delayed healing Status: Chronic Code(s): S81.801D - Unspecified open wound, right lower leg, subsequent encounter (2) Non-pressure ulcer of right lower extremity with fat layer exposed Status: Chronic Code(s): L97.912 - Non-pressure chronic ulcer of unspecified part of right lower leg with fat layer exposed (3) Lymphedema of both lower extremities Status: Chronic Code(s): I89.0 - Lymphedema, not elsewhere classified (4) Essential (primary) hypertension Status: Chronic Code(s): I10 - Essential (primary) hypertension Type of Wound Date of Service: 04/24/19 Chief Complaint: Follow-up on wound on the right lower leg History of Wound: 68-year-old obese white male that lives alone caught his car door on the bottom of his leg avulsion laceration. Was seen in the emergency room on March 03 was not sutured. Patient suffers from acute renal and chronic renal failure with stage III lymphedema of the lower extremities. Patient is diabetic and hypertensive blood sugars are fairly controlled. He is seen today as a courtesy visit for Zabrina Connell CNP. Progress of Wound: Courtesy visit for Zabrina FINNEGAN, today the wound is a little bigger per my measurements, will be receiving his [facility] #6 today tolerating treatments well still has a lot of edema in the lower leg but does suffer from lymphedema. Patient will follow-up in a week. Will do double layer Rickey wraps for compression. - Physical Exam Vital Signs Temp Pulse Resp BP 99.3 F H 79 18 159/70 H 04/19/19 13:29 04/19/19 13:29 04/19/19 13:29 04/19/19 13:29 General: Alert, Oriented x3, Cooperative, No apparent distress HEENT: Atraumatic Oral: Moist Mucosa Lungs: Clear to auscultation Cardiovascular: Regular rate Abdomen: Soft, Non Tender, Obese Extremities: Edema - 3+ pitting edema bilateral lower extremities Skin: Ulcer/ Wound - Ulceration present to right lower extremity with adherent slough, chronic venous changes present bilateral lower extremities, no signs of obvious infection at this time. Neurological: Neuro grossly intact Psych/Mental Status: Normal Affect, Appropriate, Alert and oriented to time, place, person, mood and affect Debridement Note Post-Debridement Measurements/Treatment WC - Nurse 2 - General Ulcer CM Notes Start: 04/06/19 10:06 Freq: Status: Active Protocol: Activity Type Activity Date Activity User E-Sign Co-Sign Detail Recorded Client Recorded Date Recorded By Document 04/06/19 10:24 MW [id number] 04/06/19 10:33 MW Document 04/13/19 10:13 MW [id number] 04/13/19 10:15 MW Document 04/19/19 14:16 AN [id number] 04/19/19 14:22 AN 04/06/19 04/13/19 04/19/19 10:24 10:13 14:16 Wound Center Nurse 2 #1- RT LATERAL LEG -Time 10:25 10:14 14:20 -Correct Patient Yes Yes Yes -Correct Side, Site, Position Yes Yes Yes -Correct Procedure Yes Yes Yes -Procedure Performed Yes Yes Yes -Type of Procedure Debridement Debridement Debridement -Clinical Debridement Subcutaneous Subcutaneous Subcutaneous -Post Debridement Size (cm) - Length 1.0 0.7 0.9 -Post Debridement Size (cm) - Width 1.0 0.8 1.0 -Post Debridement Size (cm) - Depth 0.4 0.3 0.2 -Total Square Cm 1.00 0.56 0.90 -Wound/Ulcer Outcome Not Healed Not Healed Not Healed -Ulcer Cleansing Rinsed/ Rinsed/ Rinsed/ Irrigated with Irrigated with Irrigated with Saline Saline Saline -Foul Odor after Cleansing No No No -Bioengineered Tissue Yes Yes Yes -Type of bioengineered Tissue NU-SHIELD NU-SHIELD NU-SHIELD -Expiration Date 02/06/24 02/09/24 02/12/24 -Product Lot Number [id number] -Percent Used 100 100 100 -Saline Lot Number [id number] -Bleeding Controlled with Pressure Pressure Pressure -Other DONOR #[id number] -Offloading No No -Treatment Response Procedure Procedure Procedure Tolerated Well Tolerated Well Tolerated Well Pain Scale: 0-10 Numeric Is Patient Pain Free? Yes Yes Yes Wound debrided: Ulceration right lower extremity Laterality: Right Type of Debridement: Excisional debridement Anesthesia Used: 5% Lidocaine Gel Depth: in the subcutaneous layer Percentage of wound debrided: 100 Instrument Used: 5mm curette Tissue Removed: Slough and devitalized tissue Severity: Fat Layer Exposed Amount of bleeding with debridement: Mild Bleeding Controlled with: Pressure Patient tolerated procedure well Assessment/Plan Assessment: Nonhealing nonsurgical wound left lower leg. Lymphedema bilateral lower legs. Traumatic wound right lateral lower leg Plan: Courtesy visit for Zabrina FINNEGAN. Patient is up-to-date on his tetanus. Applied nushield #6 to right lateral lower leg, this was secured with Steri-Strips and wound veil and a thin layer of hydrogel, keep covered may change the outside dressing only. Apply Aquacel silver to the superficial skin tears on the lateral right lower leg daily cover with Adaptic and gauze. 6 inch Rickey wraps to the lower extremity. Follow-up in 1 week with Zabrina FINNEGAN. Patient will be scheduled for a venous study Code Visit [id number]: [id number] Skin sub graft trnk/arm/leg
[2019-04-27 09:49] VITALS: BP 139/59; PULSE 69; RESP 18; TEMP 36.6; BMI 42.3
--- NOTE | 2019-04-27 10:22 | PCM.WC.PN ---
(1) Lymphedema of both lower extremities Status: Chronic Current Visit: Yes Code(s): I89.0 - Lymphedema, not elsewhere classified (2) Non-pressure ulcer of right lower extremity with fat layer exposed Status: Chronic Current Visit: Yes Code(s): L97.912 - Non-pressure chronic ulcer of unspecified part of right lower leg with fat layer exposed (3) Traumatic open wound of right lower leg with delayed healing Status: Chronic Current Visit: Yes Code(s): S81.801D - Unspecified open wound, right lower leg, subsequent encounter Type of Wound Date of Service: 04/27/19 Chief Complaint: Follow-up on wound on the right lower leg History of Wound: 68-year-old obese white male that lives alone caught his car door on the bottom of his leg avulsion laceration. Was seen in the emergency room on March 03 was not sutured. Patient suffers from acute renal and chronic renal failure with stage III lymphedema of the lower extremities. Patient is diabetic and hypertensive blood sugars are fairly controlled. He is seen today as a courtesy visit for Zabrina Connell CNP. Progress of Wound: Right lateral lower leg is healed. Patient will be discharged from the wound center. He is to continue wrapping his legs for his lymphedema and follow-up in lymphedema clinic. - Physical Exam Vital Signs Temp Pulse Resp BP 98 F 69 18 139/59 H 04/27/19 09:49 04/27/19 09:49 04/27/19 09:49 04/27/19 09:49 General: Oriented x3, Cooperative, Well developed HEENT: Atraumatic, PERRLA Oral: Moist Mucosa Neck: Supple, No JVD Lungs: Clear to auscultation, Normal air movement Cardiovascular: Regular rate, Regular Rhythm Abdomen: Bowel Sounds Present, Soft, Non Tender, No Hepato-splenomegaly Extremities: No clubbing, No edema Wound Measurements and Assessment WC - Nurse 1 - General Ulcer Measurement Start: 04/06/19 10:06 Freq: Status: Active Protocol: Activity Type Activity Date Activity User E-Sign Co-Sign Detail Recorded Client Recorded Date Recorded By Document 04/27/19 09:49 RB [id number] 04/27/19 09:54 RB 04/27/19 09:49 Wound Center Nurse 1 [Ulcer Assessment] #1- RT LATERAL LEG -Combined with other wound No -Current Size (cm) - Length 0.6 -Current Size (cm) - Width 0.4 -Current Size (cm) - Depth 0.1 -Total Square Cm 0.24 -Tunneling No -Undermining/Tunneling No -Circular Undermining No -Exudate Amt None Present -Wound Margin Flat & Intact -Granulation Amt Medium (34-66%) -Granulation Quality [place] -Slough/Fibrin Yes -Necrosis Amt Medium (34-66%) -Necrotic Tissue Type Adherent Slough -Structure Exposed N/A -Texture (Monica-wound Skin Appearance) Assessed, Friable -Moisture (Monica-wound Skin Appearance Assessed ) -Color (Monica-wound Skin Appearance) Assessed, Hemosiderin Staining -Temperature (Monica-wound Skin No Abnormality Appearance) (Pt Warm) -Ulcer Cleansing Wound Cleanser -Foul Odor after Cleansing No -Anesthetic Used 5% Lidocaine Gel [Edema Assessment] -Lower Limb Edema Present Yes -Right Calf (cm) 51.8 -Right Ankle (cm) 32.5 WC - Nurse 2 - General Ulcer CM Notes Start: 04/06/19 10:06 Freq: Status: Active Protocol: Activity Type Activity Date Activity User E-Sign Co-Sign Detail Recorded Client Recorded Date Recorded By Document 04/27/19 10:12 MW [id number] 04/27/19 10:14 MW 04/27/19 10:12 Wound Center Nurse 2 [Procedure/Treatment] #1- RT LATERAL LEG -Time 10:12 -Correct Patient Yes -Correct Side, Site, Position Yes -Correct Procedure Yes -Procedure Performed No -Post Debridement Size (cm) - Length 0 -Post Debridement Size (cm) - Width 0 -Post Debridement Size (cm) - Depth 0 -Total Square Cm 0 -Wound/Ulcer Outcome Healed- Epithelialized [See Physician Procedure note for Specifics] Pain Scale: 0-10 Numeric [Pain] -Is Patient Pain Free? Yes Musculoskeletal: No Tenderness to Palpation of Joints or Extremities Lymphatic: No Cervical, Supraclavicular, or Inguinal Adenopathy Neurological: Cranial nerves II-XII grossly intact, Neuro grossly intact Psych/Mental Status: Normal Affect, Appropriate, Alert and oriented to time, place, person, mood and affect Debridement Note Post-Debridement Measurements/Treatment WC - Nurse 2 - General Ulcer CM Notes Start: 04/06/19 10:06 Freq: Status: Active Protocol: Activity Type Activity Date Activity User E-Sign Co-Sign Detail Recorded Client Recorded Date Recorded By Document 04/06/19 10:24 MW [id number] 04/06/19 10:33 MW Document 04/13/19 10:13 MW [id number] 04/13/19 10:15 MW Document 04/19/19 14:16 AN [id number] 04/19/19 14:22 AN Document 04/27/19 10:12 MW [id number] 04/27/19 10:14 MW 04/06/19 04/13/19 04/19/19 10:24 10:13 14:16 Wound Center Nurse 2 #1- RT LATERAL LEG -Time 10:25 10:14 14:20 -Correct Patient Yes Yes Yes -Correct Side, Site, Position Yes Yes Yes -Correct Procedure Yes Yes Yes -Procedure Performed Yes Yes Yes -Type of Procedure Debridement Debridement Debridement -Clinical Debridement Subcutaneous Subcutaneous Subcutaneous -Post Debridement Size (cm) - Length 1.0 0.7 0.9 -Post Debridement Size (cm) - Width 1.0 0.8 1.0 -Post Debridement Size (cm) - Depth 0.4 0.3 0.2 -Total Square Cm 1.00 0.56 0.90 -Wound/Ulcer Outcome Not Healed Not Healed Not Healed -Ulcer Cleansing Rinsed/ Rinsed/ Rinsed/ Irrigated with Irrigated with Irrigated with Saline Saline Saline -Foul Odor after Cleansing No No No -Bioengineered Tissue Yes Yes Yes -Type of bioengineered Tissue NU-SHIELD NU-SHIELD NU-SHIELD -Expiration Date 02/06/24 02/09/24 02/12/24 -Product Lot Number [id number] -Percent Used 100 100 100 -Saline Lot Number [id number] -Bleeding Controlled with Pressure Pressure Pressure -Other DONOR #[id number] -Offloading No No -Treatment Response Procedure Procedure Procedure Tolerated Well Tolerated Well Tolerated Well Pain Scale: 0-10 Numeric Is Patient Pain Free? Yes Yes Yes 04/27/19 10:12 Wound Center Nurse 2 #1- RT LATERAL LEG -Time 10:12 -Correct Patient Yes -Correct Side, Site, Position Yes -Correct Procedure Yes -Procedure Performed No -Type of Procedure -Clinical Debridement -Post Debridement Size (cm) - Length 0 -Post Debridement Size (cm) - Width 0 -Post Debridement Size (cm) - Depth 0 -Total Square Cm 0 -Wound/Ulcer Outcome Healed- Epithelialized -Ulcer Cleansing -Foul Odor after Cleansing -Bioengineered Tissue -Type of bioengineered Tissue -Expiration Date -Product Lot Number -Percent Used -Saline Lot Number -Bleeding Controlled with -Other -Offloading -Treatment Response Pain Scale: 0-10 Numeric Is Patient Pain Free? Yes No debridement was completed today Assessment/Plan Active Problems (Last Reviewed 04/04/19 @ 13:35 by Vikash Vera MD) Lymphedema of both lower extremities (Chronic) Non-pressure ulcer of 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 Lymphedema bilateral lower legs. Traumatic wound right lateral lower leg Plan: Discharge from the wound center follow-up as needed. Continue lymphedema clinic at [facility]. Continue compression wraps.
== END 2019-05-02 23:59 ==
LOC: WC 10:00
PROVIDERS: Family Provider Family Medicine; PCP Family Medicine; Referring Provider Nurse Practitioner; Visit Provider Nurse Practitioner
DX: S81.811A Laceration without foreign body, right lower leg, initial encounter (principal); W22.09XA Striking against other stationary object, initial encounter; I89.0 Lymphedema, not elsewhere classified; N18.3 Chronic kidney disease, stage 3 (moderate); I50.32 Chronic diastolic (congestive) heart failure; I27.21 Secondary pulmonary arterial hypertension; E11.22 Type 2 diabetes mellitus with diabetic chronic kidney disease; I13.0 Hypertensive heart and chronic kidney disease with heart failure and stage 1 through stage 4 chronic kidney disease, or unspecified chronic kidney disease; R60.0 Localized edema
CPT/HCPCS: 15271; 93970; 99213; Q4160; G0463

== ENCOUNTER 2020-09-19 11:55 | Inpatient (IN) | payer MEDICARE, OTHER, SELFPAY ==
[2020-05-27 14:37] VITALS: BMI 45.6
[2020-09-19] VITALS (9 sets, daily range): BP systolic 149–169; BP diastolic 63–76; PULSE 66–75; RESP 13–22; TEMP 36.2–36.9; O2SAT 93–97; BMI 46.6; BMI 46.4
--- NOTE | 2020-09-19 12:22 | EKG12_ITS ---
Test Reason : DIALYSIS Blood Pressure : / mmHG Vent. Rate : 069 BPM Atrial Rate : 069 BPM P-R Int : 176 ms QRS Dur : 130 ms QT Int : 454 ms P-R-T Axes : 050 -67 036 degrees QTc Int : 486 ms Normal sinus rhythm Left axis deviation Right bundle branch block Abnormal ECG Confirmed by ALIA GARCIA, SPRING ([id number]), graphic editor JOSEPH ZELAYA ([id number]) on 09/24/2020 9:50:39 A M Referred By: MUSA Confirmed By:LORENZO ROJO MD
--- NOTE | 2020-09-19 12:28 | ED.VIS.GEN ---
History of Present Illness Chief Complaint: General Illness Informant: Patient Narrative: Patient presents emergency room stating that his kidney doctor sent him in to be started on dialysis. He has had chronic renal failure for quite some time. He has never been on dialysis. He sees Dr. Villanueva at the [facility]. Patient states he wishes to stay here at [facility] not be transferred to a [facility] facility. He did have a fistula placed in his left arm earlier this year. - Past Medical History (1) Chronic diastolic (congestive) heart failure Status: Chronic (2) Chronic kidney disease (CKD) Status: Chronic (3) Essential (primary) hypertension Status: Chronic (4) Hyperlipidemia Status: Chronic (5) Lymphedema of both lower extremities Status: Chronic (6) Right bundle branch block (RBBB) Status: Chronic (7) Secondary pulmonary arterial hypertension Status: Chronic Past Medical History - Allergies and Home Meds Allergies/Adverse Reactions: Allergies ARB-Angiotensin Receptor Antagonist Allergy (Verified 09/19/20 11:56) Other WORSENS RENAL FUNCTION amoxicillin Adverse Reaction (Verified 09/19/20 11:56) Upset Stomach Primary Care Physician: Jean-Claude Garcia MD [Primary Care Provider] - Prior records reviewed: Yes Surgical History: cataract Smoking Status: Former smoker - Family History Sibling Family History: Family History (Last Reviewed 05/27/20 @ 14:37 by Renetta Ying) Other Diabetes Heart disease Hypertension Family History: Reports: Heart Disease Paternal Family History: Family History (Last Reviewed 05/27/20 @ 14:37 by Renetta Ying) Other Diabetes Heart disease Hypertension Family History: Reports: Cancer, Diabetes Maternal Family History: Family History (Last Reviewed 05/27/20 @ 14:37 by Renetta Ying) Other Diabetes Heart disease Hypertension Family History: Reports: Heart Disease, Hypertension Review of Systems General: Denies: Chills, Fever Eyes: Denies: Visual changes - bilaterally ENT: Denies: Bilateral ear pain Cardiovascular: Denies: Chest pain Respiratory: Denies: Dyspnea, Cough Gastrointestinal: Reports: Nausea. Denies: Abdominal pain, Vomiting Genitourinary: Denies: Dysuria Musculoskeletal: Reports: Swelling Skin: Denies: Rash Hematologic: Denies: Easy bruising, Easy bleeding Allergy: Denies: Uticaria Physical Exam Vital Signs/Narrative: Vital Signs Temp Pulse Resp BP Pulse Ox 09/19/20 11:57 97.1 F L 66 22 H 157/64 H 97 Inital Vital Signs reviewed: Yes General: Well nourished, Well developed Head: Normocephalic ENT: Moist mucous membranes Neck: Supple Cardiovascular: Regular rate, Regular rhythm Respiratory: No distress, CTA bilaterally Abdomen: Soft, Nontender Extremities: Edema - 3-4+ bilateral lower extremity edema. Neurological: Alert, Oriented x3 Psychological: Normal affect Diagnostic/Tx/Re-eval Laboratory Results 09/19/20 09/19/20 12:20 12:20 WBC 7.9 RBC 2.91 L Hgb 9.2 L Hct 30.2 L MCV 103.8 H MCH 31.6 MCHC 30.5 L RDW Std Deviation 58.4 H RDW Coeff of Gina 15.5 H Plt Count 76 L MPV 11.4 Immature Gran % (Auto) 0.300 Neut % (Auto) 86.0 H Lymph % (Auto) 4.7 L [place] % (Auto) 7.3 Eos % (Auto) 1.3 Baso % (Auto) 0.4 Absolute Neuts (auto) 6.8 Absolute Lymphs (auto) 0.37 L Nucleated RBC % 0 Sodium 143 Potassium 3.8 Chloride 105 Carbon Dioxide 30.0 Anion Gap 8 BUN 127 H* Creatinine 3.70 H Estim Creat Clear Calc 18.63 Est GFR (MDRD) Af Amer 21 L Est GFR (MDRD) Non-Af 17 L BUN/Creatinine Ratio 34.3 H Glucose 128 H Calcium 9.0 - EKG Initial EKG Interpretation: Sinus Rhythm - Sinus at 69 with right bundle branch block. No acute ischemia. No sign of hyperkalemia on EKG. - Medical Decision Making I spoke with Dr. Gutierrez, on-call for nephrology. She stated that the patient was asymptomatic she could see him in the office on Tuesday to set him up for outpatient dialysis. If he was having symptoms patient could be admitted to initiate dialysis this weekend. When I spoke with the patient he was initially in agreement with this, however then stated that he was having increased shortness of breath and did not feel like he could walk out of the emergency room without developing significant dyspnea. He states this is worse than his breathing was a week ago. In light of this he would prefer to stay and get his dialysis started. I will speak with hospitalist regarding admission. ED Disposition - Plan for ED Patient: Disposition: Acute Care Hospital [facility] Diagnosis: Renal failure Referrals: Jean-Claude Garcia MD [Primary Care Provider] -
[2020-09-19 13:22] LABS: Absolute Lymphocyte Count 0.37 X10^3/uL (0.83-4.51); Absolute Neutrophil Count 6.8 X10^3/uL (2.0-7.7); Basophil# 0.03 X10^3/uL; Basophil% 0.4 % (0-1); Eosinophils% 1.3 % (0-5); Hematocrit 30.2 % (40-54); Hemoglobin 9.2 g/dL (13.0-16.5); Lymphocyte # 0.37 X10^3/ul (4.0); Lymphocyte % 4.7 % (19-41); Mean Corp Hgb Conc 30.5 g/dL (32-36); Mean Corpuscular Hgb 31.6 pg (27.0-32.0); Mean Corpuscular Volume 103.8 fL (80-94); Mean Platelet Vol. 11.4 fl (6.2-12.0); Monocyte# 0.58 X10^3/uL; Monocyte% 7.3 % (0-10); NRBC Flagged by Analyzer 0 % (0-5); Neutrophil # 6.84 X10^3/uL (2.7-7.7); POSITIVE COUNT YES; POSITIVE DIFFERENTIAL YES; Platelet Count 76 K/mm3 (150-450); RBC Distribution Width CV 15.5 % (11.6-14.6); RBC Distribution Width SD 58.4 fl (35.1-43.9); Red Blood Count 2.91 M/mm3 (4.6-6.2); White Blood Count 7.9 K/mm3 (4.4-11.0)
[2020-09-19 13:25] LABS: Differential Indicated SCAN CRITERIA MET
[2020-09-19 13:29] LABS: Anion Gap 8 (5-15); BUN 127 mg/dL (7-18); BUN/Creat Ratio 34.3 RATIO (10-20); Chloride 105 mmol/L (98-107); EST Glomerular Filtration Rate 17 mL/min (>60); Est Glom Filt Rate - Afr Amer 21 mL/min (>60); Estimated Creatinine Clearance 18.63 ml/min; Glucose 128 mg/dL (74-106); Potassium 3.8 mmol/L (3.5-5.1); Sodium Level 143 mmol/L (136-145)
[2020-09-19 13:57] LABS: Platelet Estimate MKD DEC (ADEQ); Red Cell Morphology NORM C+C NORMAL (NORM C&C)
--- NOTE | 2020-09-19 14:31 | HP.PCM_ITS ---
Problem List (1) Acute kidney injury superimposed on CKD Status: Acute (2) Thrombocytopenia Status: Acute (3) Diabetes mellitus, type II Status: Chronic Qualifiers: Diabetes mellitus custodial insulin use: with custodial use Diabetes mellitus complication status: with other specified complication Qualified Code(s): E11.69 - Type 2 diabetes mellitus with other specified complication; Z79.4 - custodial (current) use of insulin (4) IMAN (obstructive sleep apnea) Status: Chronic (5) Chronic diastolic (congestive) heart failure Status: Chronic (6) Secondary pulmonary arterial hypertension Status: Chronic (7) Essential (primary) hypertension Status: Chronic (8) Hyperlipidemia Status: Chronic Qualifiers: Hyperlipidemia type: unspecified Qualified Code(s): E78.5 - Hyperlipidemia, unspecified (9) Lymphedema of both lower extremities Status: Chronic History of Present Illness Date of Admission: 09/19/20 Chief Complaint: Worsening renal disease, need HD The patient is a 70 y/o M w/ PMHx: Chronic anemia/AOCD, Chronic Thrombocytopenia, HTN, HLD, IMAN on CPAP q HS, Diabetes mellitus type II, BL LE Chronic Lymphedema and [facility], Chronic COPD, Former Tobacco use, Chronic Diastolic CHF who presents to the [facility] ED on 09/19/20 secondary to referral per his Electrical And Instrument Engineer ([facility] at [facility]) but declined to transition to [facility] and requested to remain at [facility] for initiation with history of worsening dyspnea, worse with exertion patient to occasional nausea, more severe since even [address] Gutierrez was contacted per ED and amenable to take of the patient locally. Work-up in the ED included T 97.1, heart rate 66, BP 157/64, respiratory rate 22, 97% on room air, CBC with WC 7.9, hemoglobin 9.2, platelet 76 with lymphopenia noted, BMP with BUN/creatinine 127/3.70, glucose 128, EKG with SR with RBBB. Labs from day prior with Cr 4.21, glucose 277, K 4.6. Upon patient mention discussed case with Dr. Gutierrez who also requested chest x-ray given patient reported worsening dyspnea, worse with exertion. She noted intention review thoroughly [facility] records to ascertain if patient is truly appropriate to transition to dialysis. Past Medical History Past Medical History (Chronic Problems): Chronic Problems (Last Reviewed 05/27/20 @ 15:08 by Renetta Ying) Diabetes mellitus, type II (Chronic) IMAN (obstructive sleep apnea) (Chronic) Chronic diastolic (congestive) heart failure (Chronic) Secondary pulmonary arterial hypertension (Chronic) Right bundle branch block (RBBB) (Chronic) Essential (primary) hypertension (Chronic) Hyperlipidemia (Chronic) Lymphedema of both lower extremities (Chronic) Chronic kidney disease (CKD) (Chronic) Medical History: Medical History (Last Reviewed 05/27/20 @ 15:08 by Renetta Ying) Chronic diastolic (congestive) heart failure (Chronic) I50.32 Secondary pulmonary arterial hypertension (Chronic) I27.21 Right bundle branch block (RBBB) (Chronic) I45.10 Essential (primary) hypertension (Chronic) I10 Hyperlipidemia (Chronic) E78.5 Lymphedema of both lower extremities (Chronic) I89.0 Chronic kidney disease (CKD) (Chronic) N18.9 BMI 33.0-33.9,adult Z68.33 Non-pressure ulcer of right lower extremity with fat layer exposed L97.912 Traumatic open wound of right lower leg with delayed healing S81.801D Type 2 diabetes mellitus E11.9 DEVAN (acute kidney injury) (Resolved) N17.9 Gastrointestinal bleed K92.2 Syncope and collapse R55 CKD (chronic kidney disease), stage III N18.3 Traumatic open wound of right lower leg (Inactive) S81.801A Wound of right leg (Inactive) S81.801A Allergies ARB-Angiotensin Receptor Antagonist Allergy (Verified 09/19/20 11:56) Other WORSENS RENAL FUNCTION amoxicillin Adverse Reaction (Verified 09/19/20 11:56) Upset Stomach Home Medications: Ambulatory Orders Medication Instructions Recorded Aspirin [Aspirin, Baby] 81 mg PO DAILY 03/03/15 Fluticasone 0.05% [Flonase Nasal 2 spray NASAL DAILY 12/31/15 [place]] Insulin Glargine,Hum.rec.anlog 40 unit SQ BREAKFAST 12/31/15 [Lantus] Pioglitazone [Actos] 30 mg PO DAILY 12/31/15 Sitagliptin Phosphate [Januvia] 50 mg PO DAILY 11/03/16 Allopurinol [Zyloprim] 100 mg PO DAILYCM 03/03/19 Carvedilol [Coreg] 50 mg PO BID 03/03/19 Cholecalciferol (VIT D3) [Vitamin 1,000 unit PO SUWESA 03/03/19 D3] Clonidine HCl [Catapres] 0.3 mg PO BID 03/03/19 Insulin Aspart [Novolog Flexpen] 16 units SUBCUT BIDCM 03/03/19 Insulin Glargine,Hum.rec.anlog 30 unit SQ DINNER 03/03/19 [Lantus] Isosorbide Mononitrate [Isosorbide 120 mg PO DAILY 03/03/19 Mononitrate ER] Repaglinide [Prandin] 4 mg PO TID 03/03/19 Umeclidinium Brm/Vilanterol Tr 1 puff IH DAILY 03/03/19 [Anoro Ellipta 62.5-25 Mcg INH] hydrALAZINE [Apresoline] 25 mg PO TID 03/03/19 atorvastatin 80 mg tablet 80 mg PO DAILY #90 tab 04/04/19 Albuterol Inhaler [Ventolin Hfa 2 puff INHALATION Q6H PRN PRN 04/27/19 (SP)] metolazone 2.5 mg tablet 2.5 mg PO MOTH 10/25/19 torsemide 20 mg tablet 40 mg PO BID tab 05/27/20 Linagliptin [Tradjenta] 5 mg PO DAILY 09/19/20 Nitroglycerin (INPATIENT USE) 0.4 mg SUBLINGUAL Q5M PRN 09/19/20 [Nitrostat] Triamcinolone 0.1% Cream [Kenalog] 1 applic TP DAILY PRN PRN 09/19/20 Surgical History: Surgical History (Last Reviewed 05/27/20 @ 15:07 by Renetta Ying) A-V fistula Onset Date: 05/09/20 I77.0 LUE History of cataract surgery Z98.49 Surgical History: cataract, - - aVF, nasal cyst removal. Psychiatric History: No pertinent psych hx Lives: Alone Smoking Status: Former smoker - Patient quit cigarette tobacco usage approximately 10 years prior with prior to this 1 pack/day since he had been a teenager. Tobacco Use: Non-smoker Alcohol: Rare Drugs: None - *Family History Sibling Family History: Family History (Last Reviewed 05/27/20 @ 14:37 by Renetta Ying) Other Diabetes Heart disease Hypertension History Items: Heart Disease Paternal Family History: Family History (Last Reviewed 05/27/20 @ 14:37 by Renetta Ying) Other Diabetes Heart disease Hypertension History Items: Cancer - Other with a history of possibly lymphoma., Diabetes Maternal Family History: Family History (Last Reviewed 05/27/20 @ 14:37 by Renetta Ying) Other Diabetes Heart disease Hypertension History Items: Heart Disease, Hypertension Review of Systems Constitutional: Reports: Malaise, Weakness, Fatigue. Denies: Anorexia, Chills, Fever, Weight Change HEENT: Denies: Head Aches, Sinus Congestion, Sinus Drainage Cardiovascular: Reports: Edema. Denies: Chest Pain, Chest Pressure, Chest Tightness, Orthopnea, Palpitations, Syncope Respiratory: Reports: Shortness of Breath, Shortness of breath at rest, Shortness of breath upon exertion. Denies: Cough, Sputum production, Wheezing Gastrointestinal: Reports: Nausea. Denies: Abdominal Pain, Vomiting Genitourinary: Denies: Dysuria Musculoskeletal: Reports: Back Pain, Joint Pain. Denies: Joint Tenderness Skin: Denies: Rash, Wounds Neurological: Denies: Numbness, Tingling, Focal weakness Psychiatric: Denies: Anxiety, Depression, Homicidal Ideations, Suicidal Ideations Hematologic/ Lymphatic: Reports: Anemia. Denies: Easy Bruising, Easy Bleeding VTE Information - Inpt Only VTE Present on Admission: No VTE Mechan Device Prophylaxis: SCD's VTE Pharm Prophylaxis ordered?: Yes Patient Problems: Active and Suspected Problems (Last Reviewed 05/27/20 @ 15:08 by Renetta Ying) Renal failure (Acute) Acute kidney injury superimposed on CKD (Acute) Thrombocytopenia (Acute) Subjective: Patient seated upright in ED bed, fatigued appearing otherwise no acute distress, notes he short of breath with exertion and also had some nausea this morning. Objective: Physical Examination: General: awake, alert, oriented x 3 and cooperative, seated upright in the ED bed in no apparent distress. Skin: normal color, turgor, no icterus, cyanosis except bilateral lower extremity stasis disease. HEENT: AT/NC, EOMI, PERRLA, MMM, no obvious carotid bruit, unable to discern JVD secondary to thickened neck. Lungs: Diminished breath sounds, greater bases, distant breath sounds given habitus, no obvious evidence of distress, unable to discern significant rales, ronchi or wheezing. Heart: Regular rate and rhythm; no gallop, rub audible. Abdomen: soft, morbidly obese, NTTP, ND, normal BS, unable to discern HSM secondary to habitus. Extremities: no cyanosis or clubbing, see skin, significant bilateral lower extremity chronic lymphedema with 4+ pitting edema pedal to knee. Neurological: patient awake, alert, oriented as noted; cognitive function intact; pupils equally reactive to light and accomodation; cranial nerves II-XII grossly normal, moving all 4 extremities, no focal deficits, strength severely global decrease secondary to acute presentation complaints. Psychiatric: affect appears mildly fatigued otherwise normal, no acute evidence of depressive or anxiety feelings. - Physical Exam Vitals/I&O's: Vital Signs Temp Pulse Resp BP Pulse Ox 97.1 F L 66 22 H 157/64 H 97 09/19/20 11:57 09/19/20 11:57 09/19/20 11:57 09/19/20 11:57 09/19/20 11:57 Oxygen Delivery Method Room Air Weight: 325 lb Body Mass Index (BMI) 46.6 Finger Stick Blood Glucose 131 Laboratory Results 09/19/20 12:20: WBC 7.9, RBC 2.91 L, Hgb 9.2 L, Hct 30.2 L, MCV 103.8 H, MCH 31. 6, MCHC 30.5 L, RDW Std Deviation 58.4 H, RDW Coeff of Gina 15.5 H, Plt Count 76 L, MPV 11.4, Immature Gran % (Auto) 0.300, Neut % (Auto) 86.0 H, Lymph % (Auto) 4.7 L, [place] % (Auto) 7.3, Eos % (Auto) 1.3, Baso % (Auto) 0.4, Absolute Neuts (auto) 6.8, Absolute Lymphs (auto) 0.37 L, Nucleated RBC % 0, Differential Comment , Platelet Estimate MKD DEC, RBC Morphology NORM C+C 09/19/20 12:20: Sodium 143, Potassium 3.8, Chloride 105, Carbon Dioxide 30.0, Anion Gap 8, BUN 127 H*, Creatinine 3.70 H, Estim Creat Clear Calc 18.63, Est GFR (MDRD) Af Amer 21 L, Est GFR (MDRD) Non-Af 17 L, BUN/Creatinine Ratio 34.3 H , Glucose 128 H, Calcium 9.0 Assessment/Plan All Active Problems (Last Reviewed 05/27/20 @ 15:08 by Renetta Ying) Renal failure (Acute) Acute kidney injury superimposed on CKD (Acute) Thrombocytopenia (Acute) DEVAN (acute kidney injury) (Resolved) The patient is a 70 y/o M w/ PMHx: Chronic anemia/AOCD, Chronic Thrombocytopenia, HTN, HLD, IMAN on CPAP q HS, Diabetes mellitus type II, BL LE Chronic Lymphedema and wounds [facility] with [facility], Chronic COPD, Former Tobacco use, Chronic Diastolic CHF who presents to the [facility] ED on 09/19/20 secondary to referral per his Electrical And Instrument Engineer (Rich at [facility]) but declined to transition to [facility] and requested to remain at [facility] for initiation with history of worsening dyspnea, worse with exertion, more severe since even 1 week prior. 1. Acute kidney injury on CKD stage IV, Requiring HD initiation with Dyspnea, Worse with Exertion: Patient with worsening renal disease, symptomatic, referral to the ED for admission for initiation of dialysis per his renal physician, admission BUN/Cr 127/3.70, prior baseline creatinine noted to be 3.35 most recently noted on 03/05/2019 but progressively worsening since 2016, recent 09/18/20 [facility] Cr 4.21. Will admit to [facility], will continue consultation with Dr. Gutierrez and she notes intention for review of records from [facility], AVF already in place, CXR requested, likely will need covid testing prior to discharge for setting up HD location, will consult CM for discharge planning. 2. Acute on Chronic Thrombocytopenia: Admission Plts 76, last noted 03/2019 135, prior had been normal range, unclear exact etiology for decrease, continue to closely trend especially given HD initiation and usage heparin. 3. Diabetes mellitus type II: Hold oral home regimen, continue home insulin regimen, ADA diet, accu checks w/ ISS. 4. Chronic diastolic CHF: Patient has been with worsening renal disease, planned initiation of dialysis, will continue aspirin, statin, Coreg, not on YESSY inhibitor or ARB with allergy noted, hold metolazone and torsemide per discussion with Dr. Gutierrez. 5. Hypertension: Continue home regimen including Coreg, clonidine, will hold torsemide and metolazone per discussion with Dr. Gutierrez, PRN hydralazine. 6. Hyperlipidemia: Continue home statin regimen. 7. Chronic anemia/AOCD/Fe Deficiency: Admission Hgb 9.2, baseline appears similar, continue to trend, has required Fe infusions outpatient. 8. Chronic COPD: Will maintain on oxygen with wean as tolerated to room air, continue ATC duonebs, PRN albuterol, HOB, IS parameters. 9. Gout: We will continue patient home allopurinol regimen. 10. Former tobacco use: Encourage continued tobacco cessation. 11. Chronic BL LE Lymphedema, Wounds: Will continue BL LE elevation, YESSY wraps, Wound RN as needed. 12. IMAN: Continue CPAP q HS. 13. DVT prophylaxis: SCDs, heparin. 14. CODE status: Patient JIL is his Sister Shalini and living will is currently in place. Discussed CODE status at length including difference between FULL code, DNR-CCA and DNR-CC status. Following discussions about the differences in these status, requested Full Code status. Advanced Care Planning Face to Face Time: 16 minutes. Inpatient E&M: 59971 Init Hosp L3 Procedures: 08742 Advncd Care Plan 30 Min
--- NOTE | 2020-09-19 15:42 | RAD_ITS ---
STUDY: X-RAY CHEST REASON FOR EXAM: Male, 70 years old. DYSPNEA TECHNIQUE: Single AP portable view of the chest. COMPARISON: 11/03/2016. FINDINGS: The lungs are clear and expanded. There is no demonstrated pleural abnormality. Normal size heart. Normal mediastinum and gregg. Normal visualized pulmonary arteries. Normal visualized aortic arch and descending thoracic aorta. There are diffuse degenerative changes of the visualized thoracic spine. Normal visualized ribs, clavicles, and shoulders. There is no demonstrated abnormality of the visualized soft tissue structures of the upper abdomen. RAD/Chest 1 View (Portable) IMPRESSION: No definite acute or significant abnormality seen. Electronically Signed: Denis Mackenzie MD at 16:16 EST , Service support ,
[2020-09-19 16:01] LABS: Bedside Glucose 123 mg/dL (70-110)
[2020-09-19 16:37] LABS: Magnesium 2.9 mg/dL (1.6-2.6); Phosphorus 4.5 mg/dL (2.5-4.9)
--- NOTE | 2020-09-19 17:11 | CON.PCM_ITS ---
Consultation - Renal 09/19/20 PCP/ Referring MD: Requesting physician: [] Primary care physician: Dr. Jean-Claude Garcia MD Reason for Consultation:: Acute on CKD stage 4 - History of Present Illness History of Present Illness: The patient is a 70 year old super morbidly obese M with CKD stage 4 managed by [facility] bus person in [place]. He was admitted for dyspnea with exertion. He was seen by his [facility] bus person yesterday and was instructed to go to local ED for worsening renal function and to initiate dialysis. BUN was elevated at 132 creatinine 4.2 yesterday at [facility]. Creatinine 3.7 with BUN 127 today in ED. His b aseline creatinine runs 2.5-3's with eGFR 25cc/min. He had an AVF left radiocephalic placed in May 2020 that is poorly maturing. He will need follow up appt with vascular surgery at [facility] for revision. He has a history of diabetes, hypertension, IMAN, lymphedema on torsemide 40mg twice a day and metolazone twice a week at home. His diet consists of processed foods, pizza high in salt. He has leg wounds from lymphedema and is followed by wound center in [place] with compression wraps. His appetite has been fair. Denies nausea, vomiting, tremors. He continues to have leg swelling. He is resting comfortably without oxygen. He does not have a local bus person but plans to come to [place] for his chronic dialysis in the future. No 24h urine available from [facility]. No renal US done in the past. He has iron deficiency anemia received iv iron therapy with CADEN managed by [facility] hematology Dr. Camarena. He has thrombocytopenia of unclear reason. Denies liver disease or splenomegaly. - Allergies Allergies: Allergies ARB-Angiotensin Receptor Antagonist Allergy (Verified 09/19/20 14:39) WORSENS RENAL FUNCTION WORSENS RENAL FUNCTION amoxicillin Adverse Reaction (Verified 09/19/20 11:56) Upset Stomach - Current Medications Current Medications: Current Medications Acetaminophen (Acetaminophen 325 Mg Tablet) 650 mg PO Q6H PRN PRN PRN Reason: Pain Score 1-10/Temp > 100.7 F Al Hydroxide/Mg Hydroxide (Mag Hydrox/Al Hydrox/Simeth 30 Ml Udc) 30 ml PO Q6H PRN PRN PRN Reason: Gastric Burning Albuterol Sulfate (Albuterol 2.5 Mg/3 Ml Vial.Neb.) 2.5 mg INHALATION Q2H PRN PRN PRN Reason: Dyspnea, wheezing Albuterol/Ipratropium (Ipratropium/Albuterol Sulfate 3 Ml Ampul.Neb) 3 ml INHALATION Q6HWA.RT FARIDEH Allopurinol (Allopurinol 100 Mg Tablet) 100 mg PO DAILYCM [facility]IDEH Aspirin (Aspirin 81 Mg Tab.Chew) 81 mg PO DAILYCM [facility] Atorvastatin Calcium (Atorvastatin Calcium 80 Mg Tablet) 80 mg PO QHS [facility] Carvedilol (Carvedilol 25 Mg Tablet) 50 mg PO BID [facility] Cholecalciferol (Cholecalciferol (Vit D3) 1,000 Unit (25mcg)) 1,000 unit PO SUWESA [facility] Clonidine (Clonidine Hcl 0.1 Mg Tablet) 0.3 mg PO BID [facility] Fluticasone Propionate (Fluticasone 0.05% 1 [place] Nasal.Sry) 2 spray NASAL DAILY [facility] Guaifenesin (Guaifenesin 10 Ml Udc (200mg/10ml)) 20 ml PO Q4H PRN PRN PRN Reason: COUGH Heparin Sodium (Porcine) (Heparin Injection (Vial) 5,000 Unit/Ml Vial) 5,000 unit SC Q12 [facility] Hydralazine HCl (Hydralazine 25 Mg Tablet) 25 mg PO TID [facility] Hydralazine HCl (Hydralazine 20 Mg/Ml Vial) 10 mg IV Q4H PRN PRN PRN Reason: SBP > 160 Insulin Glargine (Insulin Glargine 100 Units/Ml Pen) 40 units SC BREAKFAST [facility] Insulin Glargine (Insulin Glargine 100 Units/Ml Pen) 30 units SC DINNER [facility] Insulin Human Lispro (Insulin Lispro 100 Unit/Ml Insuln.Pen) 16 unit SC BIDCM [facility] Insulin Human Lispro (Insulin Lispro 100 Unit/Ml Insuln.Pen) 0 unit SC ACHS [facility]IDE[facility]; Protocol Isosorbide Mononitrate (Isosorbide Mononitrate 120 Mg Tablet) 120 mg PO DAILY [facility] Magnesium Hydroxide (Magnesium Hydroxide 30 Ml Udc) 30 ml PO DAILY PRN PRN PRN Reason: Constipation Melatonin (Melatonin 3 Mg Tablet) 3 mg PO QHS PRN PRN PRN Reason: INSOMNIA Nitroglycerin (Nitroglycerin (Inpatient Use) 0.4 Mg Tab.Subl) 0.4 mg SUBLINGUAL Q5M PRN PRN Reason: CARDIAC/CHEST PAIN Ondansetron HCl (Ondansetron 4 Mg/2 Ml Vial) 4 mg IV Q8H PRN PRN PRN Reason: NAUSEA/VOMITING Prochlorperazine Edisylate (Prochlorperazine 10 Mg/2 Ml Vial) 5 mg IV Q4H PRN PRN PRN Reason: Breakthrough nausea/vomiting Psyllium Hydrophilic Mucilloid (Psyllium 1 Packet) 1 packet PO DAILY PRN PRN PRN Reason: Constipation Senna/Docusate Sodium (Senna/Docusate Sodium 1 Tablet) 2 tablet PO BID PRN PRN PRN Reason: Constipation Sodium Chloride (0.9% Saline Lock 10 Ml Syringe) 10 - 40 ml IV UD PRN PRN Reason: SALINE FLUSH Throat Lozenges (Benzocaine/Menthol 1 Lozenge) 1 lozenge MUCOUS MEM Q2H PRN PRN PRN Reason: SORE THROAT - Past Medical History Past Medical History (Chronic Problems): Chronic Problems (Last Reviewed 05/27/20 @ 15:08 by Renetta Ying) Diabetes mellitus, type II (Chronic) IMAN (obstructive sleep apnea) (Chronic) Chronic diastolic (congestive) heart failure (Chronic) Secondary pulmonary arterial hypertension (Chronic) Right bundle branch block (RBBB) (Chronic) Essential (primary) hypertension (Chronic) Hyperlipidemia (Chronic) Lymphedema of both lower extremities (Chronic) Chronic kidney disease (CKD) (Chronic) - Past Surgical History Surgical History: cataract, - - AVF left radiocephalic, nasal cyst removal. - Social History Smoking Status: Former smoker - Patient quit cigarette tobacco usage approximate ly 10 years prior with prior to this 1 pack/day since he had been a teenager. Alcohol: Rare Drugs: None - Family History Sibling Family History: Family History (Last Reviewed 05/27/20 @ 14:37 by Renetta Ying) Other Diabetes Heart disease Hypertension History Items: Heart Disease Paternal Family History: Family History (Last Reviewed 05/27/20 @ 14:37 by Renetta Ying) Other Diabetes Heart disease Hypertension History Items: Cancer - Other with a history of possibly lymphoma., Diabetes Maternal Family History: Family History (Last Reviewed 05/27/20 @ 14:37 by Renetta Ying) Other Diabetes Heart disease Hypertension History Items: Diabetes, Heart Disease, Hypertension Review of Systems Constitutional: Denies: Anorexia, Chills, Fever, Weakness, Fatigue HEENT: Denies: Head Aches, Visual Changes Cardiovascular: Reports: Edema - chronic. Denies: Chest Pain Respiratory: Reports: Shortness of breath upon exertion. Denies: Cough, Pleuritic Pain, Shortness of breath at rest Gastrointestinal: Reports: - - appetite fair. Denies: Abdominal Pain, Nausea, Vomiting Genitourinary: Denies: Dysuria, Frequency Musculoskeletal: Denies: Arm Pain, Muscle pain Skin: Reports: Wounds - legs from venous stasis Neurological: Denies: Tremor, Seizures Psychiatric: Denies: Anxiety, Depression Hematologic/ Lymphatic: Reports: Anemia. Denies: Hx of blood clot Patient Problems: Active and Suspected Problems (Last Reviewed 05/27/20 @ 15:08 by Renetta Ying) Renal failure (Acute) Acute kidney injury superimposed on CKD (Acute) Thrombocytopenia (Acute) - Physical Exam Vitals/I&O's: Vital Signs Temp Pulse Resp BP Pulse Ox 98 F 75 20 H 149/74 H 94 09/19/20 15:15 09/19/20 15:15 09/19/20 15:15 09/19/20 15:15 09/19/20 15:15 Oxygen Delivery Method Room Air Weight: 146.8 kg Body Mass Index (BMI) 46.4 Finger Stick Blood Glucose 131 General: Alert, Oriented x3, Cooperative, No apparent distress Oral: Moist Mucosa Neck: No JVD Lungs: Clear to auscultation Cardiovascular: Regular rate, No rub noted Abdomen: Bowel Sounds Present, Soft, Non Tender, Obese Extremities: Edema Skin: - - venous stasis skin changes Musculoskeletal: No Muscle Wasting Neurological: Cranial nerves II-XII grossly intact, - - no tremor, no asterixis Psych/Mental Status: Normal Affect, Alert and oriented to time, place, person, mood and affect Laboratory Results 09/19/20 12:20: WBC 7.9, RBC 2.91 L, Hgb 9.2 L, Hct 30.2 L, MCV 103.8 H, MCH 31.6, MCHC 30.5 L, RDW Std Deviation 58.4 H, RDW Coeff of Gina 15.5 H, Plt Count 76 L, MPV 11.4, Immature Gran % (Auto) 0.300, Neut % (Auto) 86.0 H, Lymph % (Auto) 4.7 L, [place] % (Auto) 7.3, Eos % (Auto) 1.3, Baso % (Auto) 0.4, Absolute Neuts (auto) 6.8, Absolute Lymphs (auto) 0.37 L, Nucleated RBC % 0, Differential Comment , Platelet Estimate MKD DEC, RBC Morphology NORM C+C 09/19/20 12:20: Sodium 143, Potassium 3.8, Chloride 105, Carbon Dioxide 30.0, Anion Gap 8, BUN 127 H*, Creatinine 3.70 H, Estim Creat Clear Calc 18.63, Est GFR (MDRD) Af Amer 21 L, Est GFR (MDRD) Non-Af 17 L, BUN/Creatinine Ratio 34.3 H , Glucose 128 H, Calcium 9.0 09/19/20 12:20: Phosphorus 4.5, Magnesium 2.9 H 09/19/20 15:57: POC Glucose 123 H Clinical Impression(s) from Imaging Studies Chest X-Ray 09/19/20 15:42 IMPRESSION: No definite acute or significant abnormality seen. Electronically Signed: Denis Mackenzie MD at 16:16 EST , Service support , Current Medications Acetaminophen (Acetaminophen 325 Mg Tablet) 650 mg PO Q6H PRN PRN PRN Reason: Pain Score 1-10/Temp > 100.7 F Al Hydroxide/Mg Hydroxide (Mag Hydrox/Al Hydrox/Simeth 30 Ml Udc) 30 ml PO Q6H PRN PRN PRN Reason: Gastric Burning Albuterol Sulfate (Albuterol 2.5 Mg/3 Ml Vial.Neb.) 2.5 mg INHALATION Q2H PRN PRN PRN Reason: Dyspnea, wheezing Albuterol/Ipratropium (Ipratropium/Albuterol Sulfate 3 Ml Ampul.Neb) 3 ml INHALATION Q6HWA.RT FARIDEH Allopurinol (Allopurinol 100 Mg Tablet) 100 mg PO DAILYCM [facility] Aspirin (Aspirin 81 Mg Tab.Chew) 81 mg PO DAILYCM [facility] Atorvastatin Calcium (Atorvastatin Calcium 80 Mg Tablet) 80 mg PO QHS [facility] Carvedilol (Carvedilol 25 Mg Tablet) 50 mg PO BID [facility] Cholecalciferol (Cholecalciferol (Vit D3) 1,000 Unit (25mcg)) 1,000 unit PO SUWESA [facility] Clonidine (Clonidine Hcl 0.1 Mg Tablet) 0.3 mg PO BID [facility] Fluticasone Propionate (Fluticasone 0.05% 1 [place] Nasal.Sry) 2 spray NASAL DAILY [facility] Guaifenesin (Guaifenesin 10 Ml Udc (200mg/10ml)) 20 ml PO Q4H PRN PRN PRN Reason: COUGH Heparin Sodium (Porcine) (Heparin Injection (Vial) 5,000 Unit/Ml Vial) 5,000 unit SC Q12 [facility] Hydralazine HCl (Hydralazine 25 Mg Tablet) 25 mg PO TID [facility] Hydralazine HCl (Hydralazine 20 Mg/Ml Vial) 10 mg IV Q4H PRN PRN PRN Reason: SBP > 160 Insulin Glargine (Insulin Glargine 100 Units/Ml Pen) 40 units SC BREAKFAST [facility] Insulin Glargine (Insulin Glargine 100 Units/Ml Pen) 30 units SC DINNER [facility] Insulin Human Lispro (Insulin Lispro 100 Unit/Ml Insuln.Pen) 16 unit SC BIDCM [facility] Insulin Human Lispro (Insulin Lispro 100 Unit/Ml Insuln.Pen) 0 unit SC ACHS [facility]ARIDE[facility]; Protocol Isosorbide Mononitrate (Isosorbide Mononitrate 120 Mg Tablet) 120 mg PO DAILY [facility] Magnesium Hydroxide (Magnesium Hydroxide 30 Ml Udc) 30 ml PO DAILY PRN PRN PRN Reason: Constipation Melatonin (Melatonin 3 Mg Tablet) 3 mg PO QHS PRN PRN PRN Reason: INSOMNIA Nitroglycerin (Nitroglycerin (Inpatient Use) 0.4 Mg Tab.Subl) 0.4 mg SUBLINGUAL Q5M PRN PRN Reason: CARDIAC/CHEST PAIN Ondansetron HCl (Ondansetron 4 Mg/2 Ml Vial) 4 mg IV Q8H PRN PRN PRN Reason: NAUSEA/VOMITING Prochlorperazine Edisylate (Prochlorperazine 10 Mg/2 Ml Vial) 5 mg IV Q4H PRN PRN PRN Reason: Breakthrough nausea/vomiting Psyllium Hydrophilic Mucilloid (Psyllium 1 Packet) 1 packet PO DAILY PRN PRN PRN Reason: Constipation Senna/Docusate Sodium (Senna/Docusate Sodium 1 Tablet) 2 tablet PO BID PRN PRN PRN Reason: Constipation Sodium Chloride (0.9% Saline Lock 10 Ml Syringe) 10 - 40 ml IV UD PRN PRN Reason: SALINE FLUSH Throat Lozenges (Benzocaine/Menthol 1 Lozenge) 1 lozenge MUCOUS MEM Q2H PRN PRN PRN Reason: SORE THROAT Assessment/Plan All Active Problems (Last Reviewed 05/27/20 @ 15:08 by Renetta Ying) Renal failure (Acute) Acute kidney injury superimposed on CKD (Acute) Thrombocytopenia (Acute) DEVAN (acute kidney injury) (Resolved) 1. Acute on CKD stage 4 with baseline creatinine in the 3's now at 4.2 yest jacob nicolew to 3.7. Currently without uremic symptoms. AVF left forearm placed in May 2020 with poor maturation. Will likely need referral back to his vascular surgeon for revision. Will monitor renal fxn while holding his diuretics for few days. BUN 127 Creatinine 3.7 today likely due to excessive diuretic use. Avoid nephrotoxins, no NSAIDs. Check renal US, 24h urine TP, CRCL 2. Dyspnea with exertion likely due to IMAN, super morbid obesity. CXR clear 3. Dependent edema, lymphedema likely due to morbid obesity, poor compliance with low salt diet; consider echo to evaluate for pulmonary hypertension 4. Super morbid obesity. Discussed with pt he would not be a kidney transplant candidate due to age, morbid condition 5. Iron def anemia follow up with Dr. Camarena. Epo x1 6. DM2 primary service mgmt 7. HTN BP stable 8. thrombocytopenia f/u with hematology
[2020-09-19] MEDS: Insulin Lispro 100 UNIT/ML INSULN.PEN 16 UNIT SC (17:22)
--- NOTE | 2020-09-19 17:57 | PCS.PANDOC ---
PANDEMIC DOCUMENTATION INITIATED: Date: 09/19/20 Time: 3452
--- NOTE | 2020-09-19 20:00 | CPS ---
CPAP not in room. Pt wears it at home for IMAN. Does not have personal, refuses to wear ours
[2020-09-19] MEDS: Ipratropium/Albuterol Sulfate 3 ML AMPUL.NEB INHALATION (20:03)
[2020-09-19] MEDS: Insulin Lispro 100 UNIT/ML INSULN.PEN SC (21:59)
[2020-09-19] MEDS: cloNIDine HCl 0.1 MG Tablet 0.3 MG PO (22:00)
[2020-09-19] MEDS: hydrALAZINE 25 MG Tablet PO (22:00)
[2020-09-19] MEDS: Carvedilol 25 MG Tablet 50 MG PO (22:01)
[2020-09-19] MEDS: Heparin Injection (Vial) 5,000 UNIT/ML VIAL 5000 UNIT SC (22:01)
[2020-09-19] MEDS: Atorvastatin Calcium 80 MG Tablet PO (22:02)
[2020-09-19 22:05] LABS: Bedside Glucose 307 mg/dL (70-110)
[2020-09-19] MEDS: Nystatin Powder 15gm Bottle 1 APPLIC TOPICAL (22:05)
[2020-09-20] VITALS (9 sets, daily range): BP systolic 123–155; BP diastolic 45–68; PULSE 62–75; RESP 18–20; TEMP 36.6–36.9; O2SAT 94–97
[2020-09-20] MEDS: hydrALAZINE 25 MG Tablet PO ×3 (06:43→21:11)
[2020-09-20] MEDS: Nystatin Powder 15gm Bottle 1 APPLIC TOPICAL ×3 (06:44→21:12)
[2020-09-20 06:50] LABS: Bedside Glucose 120 mg/dL (70-110)
[2020-09-20 07:14] LABS: Absolute Lymphocyte Count 0.45 X10^3/uL (0.83-4.51); Basophil# 0.02 X10^3/uL; Basophil% 0.3 % (0-1); Eosinophils% 1.6 % (0-5); Hematocrit 27.9 % (40-54); Lymphocyte # 0.45 X10^3/ul (4.0); Lymphocyte % 7.3 % (19-41); Mean Corp Hgb Conc 32.3 g/dL (32-36); Mean Corpuscular Hgb 33.3 pg (27.0-32.0); Mean Corpuscular Volume 103.3 fL (80-94); Mean Platelet Vol. 11.4 fl (6.2-12.0); Monocyte# 0.62 X10^3/uL; NRBC Flagged by Analyzer 0 % (0-5); Neutrophil # 4.96 X10^3/uL (2.7-7.7); Neutrophil % 80.3 % (47-70); POSITIVE COUNT YES; POSITIVE DIFFERENTIAL YES; Platelet Count 75 K/mm3 (150-450); RBC Distribution Width CV 15.2 % (11.6-14.6); RBC Distribution Width SD 57.9 fl (35.1-43.9); White Blood Count 6.2 K/mm3 (4.4-11.0)
[2020-09-20 07:37] LABS: Differential Indicated SCAN CRITERIA MET
--- NOTE | 2020-09-20 07:37 | PCM.PN.HOSP ---
Patient Problems: Active and Suspected Problems (Last Reviewed 05/27/20 @ 15:08 by Renetta Ying) Renal failure (Acute) Acute kidney injury superimposed on CKD (Acute) Thrombocytopenia (Acute) Reason for Visit: Worsening kidney function Subjective: Patient is a 70-year-old gentleman with multiple comorbidities including chronic kidney disease who was referred to the ED by his primary pulp beater with worsening kidney function. Admitted to regular nursing floor with consultation placed to nephrology Objective: GENERAL: cooperative HEENT: Atraumatic; EYES; Anicteric, Normal Conjunctiva NECK; supple, normal thyroid, RESPIRATORY: Diminished to auscultation CARDIOVASCULAR: Regular S1 S2, GI: soft, normoactive bowel sounds, : No Renal angle tenderness; EXTREMITIES: No clubbing no cyanosis MUSCULOSKELETAL: no muscle waisting NEURO: Awake; no lateralizing signs. SKIN: Bilateral stasis dermatitis involving lower extremities PSYCH; Flat affect Vitals/I&O's: Vital Signs Temp Pulse Resp BP Pulse Ox 98.4 F 66 18 144/52 H 96 09/20/20 03:36 09/20/20 06:43 09/20/20 03:36 09/20/20 06:43 09/20/20 07:22 Oxygen Delivery Method Room Air Weight: 145.7 kg Body Mass Index (BMI) 46.4 Finger Stick Blood Glucose 131 Intake and Output for Last 24 Hours 09/18/20 09/19/20 09/20/20 23:59 23:59 23:59 Intake Total 350 / 350 200 / 200 Output Total 1250 / 1250 425 / 425 Balance -900 / -900 -225 / -225 Laboratory Results 09/19/20 12:: WBC 7.9, RBC 2.91 L, Hgb 9.2 L, Hct 30.2 L, MCV 103.8 H, MCH 31.6, MCHC 30.5 L, RDW Std Deviation 58.4 H, RDW Coeff of Gina 15.5 H, Plt Count 76 L, MPV 11.4, Immature Gran % (Auto) 0.300, Neut % (Auto) 86.0 H, Lymph % (Auto) 4.7 L, Oliver % (Auto) 7.3, Eos % (Auto) 1.3, Baso % (Auto) 0.4, Absolute Neuts (auto) 6.8, Absolute Lymphs (auto) 0.37 L, Nucleated RBC % 0, Differential Comment , Platelet Estimate MKD DEC, RBC Morphology NORM C+C 09/19/20 12:20: Sodium 143, Potassium 3.8, Chloride 105, Carbon Dioxide 30.0, Anion Gap 8, BUN 127 H*, Creatinine 3.70 H, Estim Creat Clear Calc 18.63, Est GFR (MDRD) Af Amer 21 L, Est GFR (MDRD) Non-Af 17 L, BUN/Creatinine Ratio 34.3 H, Glucose 128 H, Calcium 9.0 09/19/20 12:20: Phosphorus 4.5, Magnesium 2.9 H 09/19/20 15:57: POC Glucose 123 H 09/19/20 21:58: POC Glucose 307 H 09/20/20 06:36: WBC Pending, RBC Pending, Hgb Pending, Hct Pending, MCV Pending, MCH Pending, MCHC Pending, RDW Std Deviation Pending, RDW Coeff of Gina Pending, Plt Count Pending, Neut % (Auto) Pending, Absolute Neuts (auto) Pending 09/20/20 06:36: Sodium Pending, Potassium Pending, Chloride Pending, Carbon Dioxide Pending, Anion Gap Pending, BUN Pending, Creatinine Pending, Est GFR (MDRD) Af Amer Pending, Est GFR (MDRD) Non-Af Pending, BUN/Creatinine Ratio Pending, Glucose Pending, Calcium Pending, Total Bilirubin Pending, AST Pending, ALT Pending, Alkaline Phosphatase Pending, Total Protein Pending, Albumin Pending 09/20/20 06:37: POC Glucose 120 H Current Medications Acetaminophen (Acetaminophen 325 Mg Tablet) 650 mg PO Q6H PRN PRN PRN Reason: Pain Score 1-10/Temp > 100.7 F Al Hydroxide/Mg Hydroxide (Mag Hydrox/Al Hydrox/Simeth 30 Ml Udc) 30 ml PO Q6H PRN PRN PRN Reason: Gastric Burning Albuterol Sulfate (Albuterol 2.5 Mg/3 Ml Vial.Neb.) 2.5 mg INHALATION Q2H PRN PRN PRN Reason: Dyspnea, wheezing Albuterol/Ipratropium (Ipratropium/Albuterol Sulfate 3 Ml Ampul.Neb) 3 ml INHALATION Q6HWA.RT FARIEDH Last Admin: 09/19/20 20:03 Dose: 3 ml Documented by: Allopurinol ([facility] 100 Mg Tablet) [facility] Aspirin (Aspirin 81 Mg Tab.Chew) [facility] Atorvastatin Calcium (Atorvastatin Calcium 80 Mg Tablet) 80 mg PO QHS [facility] Last Admin: 09/19/20 22:02 Dose: 80 mg Documented by: Carvedilol (Carvedilol 25 Mg Tablet) 50 mg PO BID [facility] Last Admin: 09/19/20 22:01 Dose: 50 mg Documented by: Cholecalciferol (Cholecalciferol (Vit D3) 1,000 Unit (25mcg)) 1,000 unit PO SUWESA [facility] Clonidine (Clonidine Hcl 0.1 Mg Tablet) 0.3 mg PO BID [facility] Last Admin: 09/19/20 22:00 Dose: 0.3 mg Documented by: Fluticasone Propionate (Fluticasone 0.05% 1 [place] Nasal.Sry) 2 spray NASAL DAILY [facility] Guaifenesin (Guaifenesin 10 Ml Udc (200mg/10ml)) 20 ml PO Q4H PRN PRN PRN Reason: COUGH Heparin Sodium (Porcine) (Heparin Injection (Vial) 5,000 Unit/Ml Vial) 5,000 unit SC Q12 [facility] Last Admin: 09/19/20 22:01 Dose: 5,000 unit Documented by: Hydralazine HCl (Hydralazine 25 Mg Tablet) 25 mg PO TID [facility] Last Admin: 09/20/20 06:43 Dose: 25 mg Documented by: Hydralazine HCl (Hydralazine 20 Mg/Ml Vial) 10 mg IV Q4H PRN PRN PRN Reason: SBP > 160 Insulin Glargine (Insulin Glargine 100 Units/Ml Pen) 40 units SC BREAKFAST [facility] Insulin Glargine (Insulin Glargine 100 Units/Ml Pen) 30 units SC DINNER [facility] Last Admin: 09/19/20 18:58 Dose: Not Given Documented by: Insulin Human Lispro (Insulin Lispro 100 Unit/Ml Insuln.Pen) [facility] Last Admin: 09/19/20 17:22 Dose: 16 u Documented by: Insulin Human Lispro (Insulin Lispro 100 Unit/Ml Insuln.Pen) 0 unit SC ACHS [facility]; Protocol Last Admin: 09/20/20 06:39 Dose: Not Given Documented by: Isosorbide Mononitrate (Isosorbide Mononitrate 120 Mg Tablet) 120 mg PO DAILY [facility] Magnesium Hydroxide (Magnesium Hydroxide 30 Ml Udc) 30 ml PO DAILY PRN PRN PRN Reason: Constipation Melatonin (Melatonin 3 Mg Tablet) 3 mg PO QHS PRN PRN PRN Reason: INSOMNIA Nitroglycerin (Nitroglycerin (Inpatient Use) 0.4 Mg Tab.Subl) 0.4 mg SUBLINGUAL Q5M PRN PRN Reason: CARDIAC/CHEST PAIN Nystatin (Nystatin Powder 15gm Bottle) 1 applic TOPICAL TID [facility]; Protocol Last Admin: 09/20/20 06:44 Dose: 1 applicatio Documented by: Ondansetron HCl (Ondansetron 4 Mg/2 Ml Vial) 4 mg IV Q8H PRN PRN PRN Reason: NAUSEA/VOMITING Prochlorperazine Edisylate (Prochlorperazine 10 Mg/2 Ml Vial) 5 mg IV Q4H PRN PRN PRN Reason: Breakthrough nausea/vomiting Psyllium Hydrophilic Mucilloid (Psyllium 1 Packet) 1 packet PO DAILY PRN PRN PRN Reason: Constipation Senna/Docusate Sodium (Senna/Docusate Sodium 1 Tablet) 2 tablet PO BID PRN PRN PRN Reason: Constipation Sodium Chloride (0.9% Saline Lock 10 Ml Syringe) 10 - 40 ml IV UD PRN PRN Reason: SALINE FLUSH Throat Lozenges (Benzocaine/Menthol 1 Lozenge) 1 lozenge MUCOUS MEM Q2H PRN PRN PRN Reason: SORE THROAT STROKE Vital Signs/Narrative: Vital Signs Pulse BP BP Pulse Ox 09/20/20 07:22 96 09/20/20 06:43 66 144/52 H 09/20/20 06:41 66 144/52 H Medical Necessity - Tobacco Use Smoking Status: Former smoker - Patient quit cigarette tobacco usage approximately 10 years prior with prior to this 1 pack/day since he had been a teenager. Tobacco Use: Non-smoker Assessment/Plan All Active Problems (Last Reviewed 05/27/20 @ 15:08 by Renetta Ying) Renal failure (Acute) Acute kidney injury superimposed on CKD (Acute) Thrombocytopenia (Acute) DEVAN (acute kidney injury) (Resolved) Patient is a 70-year-old gentleman with multiple comorbidities including chronic kidney disease who was referred to the ED by his primary pulp beater with worsening kidney function. Admitted to regular nursing floor with consultation placed to nephrology 1. Chronic kidney disease stage IV with worsening kidney function ?Plan was for patient to have been initiated on dialysis per the referring pulp beater. Patient was however seen by Dr. Gutierrez with nephrology recommended discontinuation of potential nephrotoxic medication and monitoring of patient's kidney function 2. Diabetes mellitus type II -patient's oral hypoglycemics held. -Placed on long acting insulin, Accu-Cheks a.c. and at bedtime and covered with sliding scale insulin 3. Hypertension - Blood pressure controlled, home medications continued with dose adjustment as needed 4. Dyslipidemia -Patient is on statin therapy, continued at home dose 5. Gout ?Patient is on allopurinol 6. Anemia - Secondary to chronic disorder monitoring H&H and transfuse if patient becomes symptomatic or hemoglobin falls below 7 7. Morbid obesity with BMI of 46.1 ?Weight loss advised 8. Obstructive sleep apnea ?Patient is on CPAP at night 10. Chronic diastolic congestive heart failure ?Currently compensated 11. Thrombocytopenia ?Chronic patient was started on heparin on admission discontinued 12. DVT prophylaxis -avoided the use of chemoprophylaxis in view of patient's low platelet count Inpatient E&M: [id number] [facility] Hosp L3
[2020-09-20 07:55] LABS: AST(SGOT) 17 U/L (15-37); Alanine Aminotransfer ALT/SGPT 26 U/L (16-61); Albumin, Serum 3.2 g/dL (3.2-5.0); Alkaline Phosphatase 43 U/L (45-117); Anion Gap 4 (5-15); BUN 120 mg/dL (7-18); BUN/Creat Ratio 36.7 RATIO (10-20); Calcium,Total 8.6 mg/dL (8.5-10.1); Chloride 106 mmol/L (98-107); Creatinine, Serum 3.27 mg/dL (0.70-1.30); EST Glomerular Filtration Rate 20 mL/min (>60); Est Glom Filt Rate - Afr Amer 24 mL/min (>60); Estimated Creatinine Clearance 21.08 ml/min; Globulin 3.2 g/dL (2.2-4.2); Glucose 111 mg/dL (74-106); Hypochromasia 1+; Macrocytosis 1+; Platelet Estimate MKD DEC (ADEQ); Potassium 3.7 mmol/L (3.5-5.1); Protein, Total 6.4 g/dL (6.4-8.2); Sodium Level 141 mmol/L (136-145)
--- NOTE | 2020-09-20 08:33 | US_ITS ---
STUDY: RENAL ULTRASOUND - COMPLETE REASON FOR EXAM: Male, 70 years old. RENAL FAILURE TECHNIQUE: Ultrasound evaluation of the kidneys was performed with real-time and static schwartz-scale imaging. COMPARISON: CT scan 01/04/2016, renal ultrasound 11/03/16. FINDINGS: Exam limited by patient''s size and bowel gas. RIGHT KIDNEY: Normal location of the right kidney, which is normal in size. The right kidney measures 10.1 x 5.8 x 5.0 cm. There is a normal cortex of the right kidney. The renal cortex measures 1.7 cm. There is no right renal mass or cyst. There are no right renal calculi. There is no right hydronephrosis. DISTAL RIGHT URETER: There is non-visualization of the distal right ureter. There is no demonstrated right ureterovesical junction calculus. There is no demonstrated right ureteral jet. LEFT KIDNEY: Normal location of the left kidney, which is normal in size. The left kidney measures 9.8 x 5.8 x 5.0 cm. There is a normal cortex of the left kidney. The renal cortex measures 1.4 cm. There is no left renal mass or cyst. There are no left renal calculi. There is no left hydronephrosis. DISTAL LEFT URETER: There is non-visualization of the distal left ureter. There is no demonstrated left ureterovesical junction calculus. There is no demonstrated left ureteral jet. BLADDER: There is a May catheter emptying the bladder. US/Kidney and Bladder IMPRESSION: Normal ultrasound of the kidneys and urinary bladder. Electronically Signed: Denis Mackenzie MD at 17:28 EST , Service support ,
[2020-09-20] MEDS: Fluticasone 0.05% 1 SPRAY NASAL.SRY 2 SPRAY NASAL (09:09)
[2020-09-20] MEDS: Insulin Lispro 100 UNIT/ML INSULN.PEN 16 UNIT SC ×2 (09:23→17:22)
[2020-09-20] MEDS: Carvedilol 25 MG Tablet 50 MG PO ×2 (09:25→21:11)
[2020-09-20] MEDS: cloNIDine HCl 0.1 MG Tablet 0.3 MG PO ×2 (09:25→21:11)
[2020-09-20] MEDS: Allopurinol 100 MG Tablet PO (09:26)
[2020-09-20] MEDS: Aspirin 81 MG TAB.CHEW PO (09:26)
[2020-09-20 09:31] LABS: Bedside Glucose 136 mg/dL (70-110)
--- NOTE | 2020-09-20 10:04 | DIALYSIS ---
No dialysis today per Dr. Gutierrez.
[2020-09-20 12:15] LABS: Bedside Glucose 168 mg/dL (70-110)
[2020-09-20] MEDS: Insulin Lispro 100 UNIT/ML INSULN.PEN SC ×2 (12:22→21:11)
[2020-09-20] MEDS: Epoetin Alfa epbx 10,000 UNITS/ML 10000 UNIT SC (12:23)
--- NOTE | 2020-09-20 13:39 | PCM.PN.REN ---
Patient Problems: Active and Suspected Problems (Last Reviewed 05/27/20 @ 15:08 by Renetta Ying) Renal failure (Acute) Acute kidney injury superimposed on CKD (Acute) Thrombocytopenia (Acute) Subjective: remains nonoliguric despite taken off diuretics. BUN/CR continues to improve. No immediate dialysis needed at this time. 24h urine crcl pending. Renal US pending. Will need AVF revised for poor maturation. Chronic leg edema due to obesity, noncompliant with low salt diet. Will eventially need to resume diuretics on discharge to home but at a lower dose. - Physical Exam Vitals/I&O's: Vital Signs Temp Pulse Resp BP Pulse Ox 98.4 F 67 20 H 155/55 H 94 09/20/20 09:00 09/20/20 09:00 09/20/20 09:00 09/20/20 09:00 09/20/20 09:00 Oxygen Delivery Method Room Air Weight: 145.7 kg Body Mass Index (BMI) 46.4 Finger Stick Blood Glucose 131 Intake and Output for Last 24 Hours 09/18/20 09/19/20 09/20/20 23:59 23:59 23:59 Intake Total 350 / 350 200 / 200 Output Total 1250 / 1250 425 / 425 Balance -900 / -900 -225 / -225 General: Alert, Oriented x3, Cooperative, No apparent distress Lungs: Clear to auscultation Cardiovascular: Regular rate Abdomen: Bowel Sounds Present, Soft, Non Tender, Obese Extremities: Edema - BLE chronic Musculoskeletal: No Muscle Wasting Neurological: - - no tremor Psych/Mental Status: Normal Affect, Alert and oriented to time, place, person, mood and affect Laboratory Results 09/19/20 12:20: Differential Comment , Platelet Estimate MKD DEC, RBC Morphology NORM C+C 09/19/20 12:20: Phosphorus 4.5, Magnesium 2.9 H 09/19/20 15:57: POC Glucose 123 H 09/19/20 21:58: POC Glucose 307 H 09/20/20 06:36: WBC 6.2, RBC 2.70 L, Hgb 9.0 L, Hct 27.9 L, MCV 103.3 H, MCH 33.3 H, MCHC 32.3 D, RDW Std Deviation 57.9 H, RDW Coeff of Gina 15.2 H, Plt Count 75 L, MPV 11.4, Immature Gran % (Auto) 0.500, Neut % (Auto) 80.3 H, Lymph % (Auto) 7.3 L, [place] % (Auto) 10.0, Eos % (Auto) 1.6, Baso % (Auto) 0.3, Absolute Neuts (auto) 5.0, Absolute Lymphs (auto) 0.45 L, Nucleated RBC % 0, Platelet Estimate MKD DEC, Hypochromasia 1+, Macrocytosis 1+ 09/20/20 06:36: Sodium 141, Potassium 3.7, Chloride 106, Carbon Dioxide 31.0, Anion Gap 4 L, BUN 120 H*, Creatinine 3.27 H, Estim Creat Clear Calc 21.08, Est GFR (MDRD) Af Amer 24 L, Est GFR (MDRD) Non-Af 20 L, BUN/Creatinine Ratio 36.7 H, Glucose 111 H, Calcium 8.6, Total Bilirubin 1.10 H, AST 17, ALT 26, Alkaline Phosphatase 43 L, Total Protein 6.4, Albumin 3.2, Globulin 3.2, Albumin/Globulin Ratio 1.0 09/20/20 06:37: POC Glucose 120 H 09/20/20 09:22: POC Glucose 136 H 09/20/20 12:12: POC Glucose 168 H Current Medications Acetaminophen (Acetaminophen 325 Mg Tablet) 650 mg PO Q6H PRN PRN PRN Reason: Pain Score 1-10/Temp > 100.7 F Al Hydroxide/Mg Hydroxide (Mag Hydrox/Al Hydrox/Simeth 30 Ml Udc) 30 ml PO Q6H PRN PRN PRN Reason: Gastric Burning Albuterol Sulfate (Albuterol 2.5 Mg/3 Ml Vial.Neb.) 2.5 mg INHALATION Q2H PRN PRN PRN Reason: Dyspnea, wheezing Albuterol/Ipratropium (Ipratropium/Albuterol Sulfate 3 Ml Ampul.Neb) 3 ml INHALATION Q6HWA.RT [facility] Last Admin: 09/19/20 20:03 Dose: 3 ml Documented by: Allopurinol ([facility] 100 Mg Tablet) [facility] Last Admin: 09/20/20 09:26 Dose: 100 mg Documented by: Aspirin (Aspirin 81 Mg Tab.Chew) [facility] Last Admin: 09/20/20 09:26 Dose: 81 mg Documented by: Atorvastatin Calcium (Atorvastatin Calcium 80 Mg Tablet) 80 mg PO QHS [facility] Last Admin: 09/19/20 22:02 Dose: 80 mg Documented by: Carvedilol (Carvedilol 25 Mg Tablet) 50 mg PO BID [facility] Last Admin: 09/20/20 09:25 Dose: 50 mg Documented by: Cholecalciferol (Cholecalciferol (Vit D3) 1,000 Unit (25mcg)) 1,000 unit PO SUWESA [facility] Last Admin: 09/20/20 09:26 Dose: 1,000 unit Documented by: Clonidine (Clonidine Hcl 0.1 Mg Tablet) 0.3 mg PO BID [facility] Last Admin: 09/20/20 09:25 Dose: 0.3 mg Documented by: Fluticasone Propionate (Fluticasone 0.05% 1 [place] Nasal.Sry) 2 spray NASAL DAILY [facility] Last Admin: 09/20/20 09:09 Dose: 2 spray Documented by: Guaifenesin (Guaifenesin 10 Ml Udc (200mg/10ml)) 20 ml PO Q4H PRN PRN PRN Reason: COUGH Hydralazine HCl (Hydralazine 25 Mg Tablet) 25 mg PO TID [facility] Last Admin: 09/20/20 06:43 Dose: 25 mg Documented by: Hydralazine HCl (Hydralazine 20 Mg/Ml Vial) 10 mg IV Q4H PRN PRN PRN Reason: SBP > 160 Insulin Glargine (Insulin Glargine 100 Units/Ml Pen) 40 units SC BREAKFAST [facility] Last Admin: 09/20/20 09:23 Dose: 40 units Documented by: Insulin Glargine (Insulin Glargine 100 Units/Ml Pen) 30 units SC DINNER [facility] Last Admin: 09/19/20 18:58 Dose: Not Given Documented by: Insulin Human Lispro (Insulin Lispro 100 Unit/Ml Insuln.Pen) 16 unit SC BIDCM [facility] Last Admin: 09/20/20 09:23 Dose: 16 u Documented by: Insulin Human Lispro (Insulin Lispro 100 Unit/Ml Insuln.Pen) 0 unit SC ACHS [facility]; Protocol Last Admin: 09/20/20 12:22 Dose: 1 u Documented by: Isosorbide Mononitrate (Isosorbide Mononitrate 120 Mg Tablet) 120 mg PO DAILY [facility] Last Admin: 09/20/20 09:26 Dose: 120 mg Documented by: Magnesium Hydroxide (Magnesium Hydroxide 30 Ml Udc) 30 ml PO DAILY PRN PRN PRN Reason: Constipation Melatonin (Melatonin 3 Mg Tablet) 3 mg PO QHS PRN PRN PRN Reason: INSOMNIA Nitroglycerin (Nitroglycerin (Inpatient Use) 0.4 Mg Tab.Subl) 0.4 mg SUBLINGUAL Q5M PRN PRN Reason: CARDIAC/CHEST PAIN Nystatin (Nystatin Powder 15gm Bottle) 1 applic TOPICAL TID [facility]; Protocol Last Admin: 09/20/20 06:44 Dose: 1 applicatio Documented by: Ondansetron HCl (Ondansetron 4 Mg/2 Ml Vial) 4 mg IV Q8H PRN PRN PRN Reason: NAUSEA/VOMITING Prochlorperazine Edisylate (Prochlorperazine 10 Mg/2 Ml Vial) 5 mg IV Q4H PRN PRN PRN Reason: Breakthrough nausea/vomiting Psyllium Hydrophilic Mucilloid (Psyllium 1 Packet) 1 packet PO DAILY PRN PRN PRN Reason: Constipation Senna/Docusate Sodium (Senna/Docusate Sodium 1 Tablet) 2 tablet PO BID PRN PRN PRN Reason: Constipation Sodium Chloride (0.9% Saline Lock 10 Ml Syringe) 10 - 40 ml IV UD PRN PRN Reason: SALINE FLUSH Throat Lozenges (Benzocaine/Menthol 1 Lozenge) 1 lozenge MUCOUS MEM Q2H PRN PRN PRN Reason: SORE THROAT Medical Necessity - Tobacco Use Smoking Status: Former smoker - Patient quit cigarette tobacco usage approximately 10 years prior with prior to this 1 pack/day since he had been a teenager. Tobacco Use: Non-smoker Assessment/Plan All Active Problems (Last Reviewed 05/27/20 @ 15:08 by Renetta Ying) Renal failure (Acute) Acute kidney injury superimposed on CKD (Acute) Thrombocytopenia (Acute) DEVAN (acute kidney injury) (Resolved) 1. Acute on CKD stage 4 with baseline creatinine in the mid 2's to 3's. Creatinine 4.2 on 09/18, down to 3.7 on 09/19 now 3.2 off diuretics. Continue to hold diuretics for now. Oxygenation stable. Await 24h urine and renal US. Currently without uremic symptoms. AVF left forearm placed in May 2020 with poor maturation. Will likely need referral back to his vascular surgeon for revision. 2. Dyspnea with exertion likely due to IMAN, super morbid obesity. CXR clear. Follow low sodium diet. Resume torsemide 20mg twice a day on discharge to home and hold metolazone. 3. Dependent edema, lymphedema likely due to morbid obesity, follow 2g sodium diet 4. Super morbid obesity. 5. Iron def anemia follow up with Dr. Camarena. Epo x1 yesterday 6. DM2 primary service mgmt 7. HTN BP stable 8. thrombocytopenia f/u with hematology
--- NOTE | 2020-09-20 16:15 | CASEMGMT ---
RN CM BALANCING MACHINE SET UP WORKER CM to room to meet with patient for initial transition planning/care coordination assessment. RN VIRGIL introduced self and role at [facility].? Pt voices understanding and consents to assessment at this time.? Pt sitting up in chair in room in no distress at this time.? Pt is A/O at this time and answers all questions appropriately.?? Care providers, pharmacy, and demographics verified/updated at this time. PCP: Dr Randolph Specialists: Food Mobile Driver from [place]--sees him in [place] office. States his first name is Iveth, but she does not remember his last name. Goes to the wound center every other week. Sees Dr Peres. Preferred Pharmacy: [facility] Insurance: [facility], [employer] Prescription Benefit:? Yes Living Will/HPOA:? Pt does not currently have LW/HCPOA and declines info at this time, stating they are in the process of having this done. LNOK: , Haja. Son, Tyler Living Arrangements: Lives w/her in one-story home w/basement. No steps to enter. Handicap accessible. Independent w/ADL's and IADL's. does grocery shopping. Transportation: Pt states drives self and states no transportation concerns at this time.? will take her home @ d/c DME: ? States has the following DME:? shower chair, cane, lift chair, rails/grab bars, rollator, glucometer. INR ilia. Pt states no need for further DME at this time.? HHC/SNF: No hx of SNF. Active w/[facility] HHC:SN. [facility] and spoke w/RN on-call. She was made aware of pt's admission to [facility]. Resumption of HHC order has been placed. Pt wishes to return home w/[facility] and states has no concerns with going home at time of discharge.? CM to follow for any further discharge planning/needs.? Pt voices no further concerns/needs at this time.? Advised pt to ask for CM if any further questions/concerns/needs arise.? Voices understanding. PLAN: ?Home w/resumption of HHC: SN Bella MURILLO RN, CM
--- NOTE | 2020-09-20 16:40 | CASEMGMT ---
JESSICA HERMAN CHIEF RADIOLOGIC TECHNOLOGIST CM to room to meet with patient for initial transition planning/care coordination assessment. JESSICA HERMAN introduced self and role at [facility].? Pt voices understanding and consents to assessment at this time.? Pt resting in bed in no distress at this time.? Pt is A/O at this time and answers all questions appropriately.?? Care providers, pharmacy, and demographics verified/updated at this time. PCP: Dr Garcia Specialists: Was seeing Dr Rocha--Head Teacher @ [facility], but plans to switch to Dr Gutierrez @ d/c. Dr Vera--cardiology, Dr Schultz--pulmonology, Dr Camarena-hematology, Dr Sullivan--podiatry Preferred Pharmacy: [facility] Insurance: [facility], [place] Prescription Benefit:? Yes Living Will/HPOA:? Has both LW and Healthcare POA, sister/Rhiannon LNOK: SisterRhiannon Living Arrangements: Lives alone. Independent w/ADL's and IADL's. States his home is messy but his sister just recently got involved and is getting someone to come clean his home. Pt has lymphedema. He states he is able to apply the compression stockings to BLE daily, but states it is difficult d/t body habitus. He manages his own appts and medications, does his own grocery shopping, and meals. Transportation: Pt states drives self and states no transportation concerns at this time.? DME: ?States has the following DME:? shower chair, cane, glucometer, lift chair, grab bars, hand held shower, CPAP. Has a hospital bed available that was his fathers, but does not use. Pt states he is interested in getting an electric scooter. Pt informed to talk with his PCP about this and they can initiate the process for this. HHC/SNF: No history of either. Pt wishes to return home and states has no concerns with going home at time of discharge.? Discussed options of HHC and pt made aware of [facility] guidelines for being homebound. Pt states he is not homebound. Discussed OP therapy. Pt declines wanting that at this time. Pt made aware, if in the future, he would be interested in this, to discuss this with his PCP. He voices understanding. Pt initially was admitted to [facility] for HD. HD is currently on hold at this time per Dr Gutierrez/nephrology and kidney function is being monitored. Pt aware HD may be needed and that CM would assist with this if OP HD is needed to be set-up. CM to follow for any discharge planning/needs.? Pt voices no concerns/needs at this time.? Advised pt to ask for CM if any questions/concerns/needs arise.? Voices understanding. PLAN: ?Home PT/OT evals pending. Follow for possible need of new OP HD set-up. Bella ATKINSONN RN CM
[2020-09-20 17:35] LABS: Bedside Glucose 130 mg/dL (70-110)
[2020-09-20] MEDS: Ipratropium/Albuterol Sulfate 3 ML AMPUL.NEB INHALATION (18:39)
[2020-09-20 20:09] LABS: Creat.Clear Total Volume 2500 mL; Creatinine Clearance 43 ml/min (100-200); Creatinine Serum Creat 3.3 mg/dL (0.8-1.3); Creatinine Urine 81.5 mg/dL (NO RANGE EST.); EST Glomerular Filtration Rate 20 mL/min (>60); Est Glom Filt Rate - Afr Amer 24 mL/min (>60)
[2020-09-20 20:11] LABS: 24 Hour Urine Protein 827.5 mg/24HR (<150 MG/24HR); 24HR. UA Prot. Total Volume 2500 mL; Urine Protein (24 Hour) 33.1 mg/dL (<11.9)
[2020-09-20] MEDS: Atorvastatin Calcium 80 MG Tablet PO (21:11)
[2020-09-20 21:21] LABS: Bedside Glucose 181 mg/dL (70-110)
--- NOTE | 2020-09-20 22:07 | CPS ---
PATIENT HAS HOME UNIT.
[2020-09-21] VITALS (10 sets, daily range): BP systolic 137–150; BP diastolic 42–55; PULSE 60–66; RESP 16–18; TEMP 36.4–36.9; O2SAT 94–95
[2020-09-21] MEDS: Nystatin Powder 15gm Bottle 1 APPLIC TOPICAL ×3 (06:49→21:30)
[2020-09-21] MEDS: hydrALAZINE 25 MG Tablet PO ×3 (06:50→21:30)
[2020-09-21 07:31] LABS: Absolute Lymphocyte Count 0.54 X10^3/uL (0.83-4.51); Absolute Neutrophil Count 3.9 X10^3/uL (2.0-7.7); Basophil# 0.04 X10^3/uL; Basophil% 0.8 % (0-1); Eosinophil# 0.16 X10^3/uL; Hematocrit 29.5 % (40-54); Hemoglobin 9.5 g/dL (13.0-16.5); Lymphocyte # 0.54 X10^3/ul (4.0); Lymphocyte % 10.2 % (19-41); Mean Corp Hgb Conc 32.2 g/dL (32-36); Mean Corpuscular Hgb 32.9 pg (27.0-32.0); Mean Corpuscular Volume 102.1 fL (80-94); Mean Platelet Vol. 10.4 fl (6.2-12.0); Monocyte# 0.63 X10^3/uL; NRBC Flagged by Analyzer 0 % (0-5); Neutrophil # 3.87 X10^3/uL (2.7-7.7); Neutrophil % 73.4 % (47-70); POSITIVE COUNT YES; POSITIVE DIFFERENTIAL YES; Platelet Count 78 K/mm3 (150-450); RBC Distribution Width SD 56.5 fl (35.1-43.9); Red Blood Count 2.89 M/mm3 (4.6-6.2); White Blood Count 5.3 K/mm3 (4.4-11.0)
--- NOTE | 2020-09-21 07:44 | PCM.PN.HOSP ---
Patient Problems: Active and Suspected Problems (Last Reviewed 05/27/20 @ 15:08 by Renetta Ying) Renal failure (Acute) Acute kidney injury superimposed on CKD (Acute) Thrombocytopenia (Acute) Reason for Visit: Worsening kidney function Subjective: Patient is a 70-year-old gentleman with multiple comorbidities including chronic kidney disease who was referred to the ED by his primary street openings inspector with worsening kidney function. Admitted to regular nursing floor with consultation placed to nephrology 09/21/2020; patient seen no significant improvement in his kidney function. 24-hour urine collection currently pending Objective: GENERAL: cooperative HEENT: Atraumatic; EYES; Anicteric, Normal Conjunctiva NECK; supple, normal thyroid, RESPIRATORY: Diminished to auscultation CARDIOVASCULAR: Regular S1 S2, GI: soft, normoactive bowel sounds, : No Renal angle tenderness; EXTREMITIES: No clubbing no cyanosis MUSCULOSKELETAL: no muscle waisting NEURO: Awake; no lateralizing signs. SKIN: Bilateral stasis dermatitis involving lower extremities PSYCH; Flat affect Vitals/I&O's: Vital Signs Temp Pulse Resp BP Pulse Ox 97.5 F L 61 18 141/47 H 94 09/21/20 06:37 09/21/20 06:50 09/21/20 06:37 09/21/20 06:37 09/21/20 06:37 Oxygen Delivery Method Room Air Weight: 146.4 kg Body Mass Index (BMI) 46.4 Finger Stick Blood Glucose 131 Intake and Output for Last 24 Hours 09/19/20 09/20/20 09/21/20 23:59 23:59 23:59 Intake Total 350 / 350 1120 / 1270 150 / 150 Output Total 1250 / 1250 1375 / 1625 250 / 250 Balance -900 / -900 -255 / -355 -100 / -100 Laboratory Results 09/20/20 06:36: Platelet Estimate MKD DEC, Hypochromasia 1+, Macrocytosis 1+ 09/20/20 06:36: Sodium 141, Potassium 3.7, Chloride 106, Carbon Dioxide 31.0, Anion Gap 4 L, BUN 120 H*, Creatinine 3.27 H, Estim Creat Clear Calc 21.08, Est GFR (MDRD) Af Amer 24 L, Est GFR (MDRD) Non-Af 20 L, BUN/Creatinine Ratio 36.7 H, Glucose 111 H, Calcium 8.6, Total Bilirubin 1.10 H, AST 17, ALT 26, Alkaline Phosphatase 43 L, Total Protein 6.4, Albumin 3.2, Globulin 3.2, Albumin/Globulin Ratio 1.0 09/20/20 09:22: POC Glucose 136 H 09/20/20 12:12: POC Glucose 168 H 09/20/20 17:14: POC Glucose 130 H 09/20/20 19:15: Creatinine 3.3 H, Est GFR (MDRD) Af Amer 24 L, Est GFR (MDRD) Non-Af 20 L, Urine Collection Time 24.0, Timed Urine Volume 2500, Urine Creatinine 81.5, Creatinine Clearance 43 L 09/20/20 19:15: Urine Collection Time 24.0, Timed Urine Volume 2500, Ur Total Protein 24 Hr 827.5 H, Urine Total Protein 33.1 H 09/20/20 21:07: POC Glucose 181 H 09/21/20 07:15: WBC Pending, RBC Pending, Hgb Pending, Hct Pending, MCV Pending, MCH Pending, MCHC Pending, RDW Std Deviation Pending, RDW Coeff of Gina Pending, Plt Count Pending, Neut % (Auto) Pending, Absolute Neuts (auto) Pending 09/21/20 07:15: Sodium Pending, Potassium Pending, Chloride Pending, Carbon Dioxide Pending, BUN Pending, Creatinine Pending, Est GFR (MDRD) Af Amer Pending, Est GFR (MDRD) Non-Af Pending, BUN/Creatinine Ratio Pending, Glucose Pending, Calcium Pending, Phosphorus Pending, Magnesium Pending, Albumin Pending Current Medications Acetaminophen (Acetaminophen 325 Mg Tablet) 650 mg PO Q6H PRN PRN PRN Reason: Pain Score 1-10/Temp > 100.7 F Al Hydroxide/Mg Hydroxide (Mag Hydrox/Al Hydrox/Simeth 30 Ml Udc) 30 ml PO Q6H PRN PRN PRN Reason: Gastric Burning Albuterol Sulfate (Albuterol 2.5 Mg/3 Ml Vial.Neb.) 2.5 mg INHALATION Q2H PRN PRN PRN Reason: Dyspnea, wheezing Albuterol/Ipratropium (Ipratropium/Albuterol Sulfate 3 Ml Ampul.Neb) 3 ml INHALATION Q6HWA.RT [facility] Last Admin: 12/19/20 18:39 Dose: 3 ml Documented by: Allopurinol (Allopurinol 100 Mg Tablet) [facility] Last Admin: 09/20/20 09:26 Dose: 100 mg Documented by: Aspirin (Aspirin 81 Mg Tab.Chew) [facility] Last Admin: 09/20/20 09:26 Dose: 81 mg Documented by: Atorvastatin Calcium (Atorvastatin Calcium 80 Mg Tablet) 80 mg PO QHS [facility] Last Admin: 09/20/20 21:11 Dose: 80 mg Documented by: Carvedilol (Carvedilol 25 Mg Tablet) 50 mg PO BID [facility] Last Admin: 09/20/20 21:11 Dose: 50 mg Documented by: Cholecalciferol (Cholecalciferol (Vit D3) 1,000 Unit (25mcg)) 1,000 unit PO SUWESA [facility] Last Admin: 09/20/20 09:26 Dose: 1,000 unit Documented by: Clonidine (Clonidine Hcl 0.1 Mg Tablet) 0.3 mg PO BID [facility] Last Admin: 09/20/20 21:11 Dose: 0.3 mg Documented by: Fluticasone Propionate (Fluticasone 0.05% 1 [place] Nasal.Sry) 2 spray NASAL DAILY [facility] Last Admin: 09/20/20 09:09 Dose: 2 spray Documented by: Guaifenesin (Guaifenesin 10 Ml Udc (200mg/10ml)) 20 ml PO Q4H PRN PRN PRN Reason: COUGH Hydralazine HCl (Hydralazine 25 Mg Tablet) 25 mg PO TID [facility] Last Admin: 09/21/20 06:50 Dose: 25 mg Documented by: Hydralazine HCl (Hydralazine 20 Mg/Ml Vial) 10 mg IV Q4H PRN PRN PRN Reason: SBP > 160 Insulin Glargine (Insulin Glargine 100 Units/Ml Pen) 40 units SC BREAKFAST [facility] Last Admin: 09/20/20 09:23 Dose: 40 units Documented by: Insulin Glargine (Insulin Glargine 100 Units/Ml Pen) 30 units SC DINNER [facility] Last Admin: 09/20/20 17:22 Dose: 30 units Documented by: Insulin Human Lispro (Insulin Lispro 100 Unit/Ml Insuln.Pen) [facility] Last Admin: 09/20/20 17:22 Dose: 16 u Documented by: Insulin Human Lispro (Insulin Lispro 100 Unit/Ml Insuln.Pen) 0 unit SC ACHS [facility]; Protocol Last Admin: 09/20/20 21:11 Dose: 1 u Documented by: Isosorbide Mononitrate (Isosorbide Mononitrate 120 Mg Tablet) 120 mg PO DAILY [facility] Last Admin: 09/20/20 09:26 Dose: 120 mg Documented by: Magnesium Hydroxide (Magnesium Hydroxide 30 Ml Udc) 30 ml PO DAILY PRN PRN PRN Reason: Constipation Melatonin (Melatonin 3 Mg Tablet) 3 mg PO QHS PRN PRN PRN Reason: INSOMNIA Nitroglycerin (Nitroglycerin (Inpatient Use) 0.4 Mg Tab.Subl) 0.4 mg SUBLINGUAL Q5M PRN PRN Reason: CARDIAC/CHEST PAIN Nystatin (Nystatin Powder 15gm Bottle) 1 applic TOPICAL TID [facility]; Protocol Last Admin: 09/21/20 06:49 Dose: 1 applicatio Documented by: Ondansetron HCl (Ondansetron 4 Mg/2 Ml Vial) 4 mg IV Q8H PRN PRN PRN Reason: NAUSEA/VOMITING Prochlorperazine Edisylate (Prochlorperazine 10 Mg/2 Ml Vial) 5 mg IV Q4H PRN PRN PRN Reason: Breakthrough nausea/vomiting Psyllium Hydrophilic Mucilloid (Psyllium 1 Packet) 1 packet PO DAILY PRN PRN PRN Reason: Constipation Senna/Docusate Sodium (Senna/Docusate Sodium 1 Tablet) 2 tablet PO BID PRN PRN PRN Reason: Constipation Sodium Chloride (0.9% Saline Lock 10 Ml Syringe) 10 - 40 ml IV UD PRN PRN Reason: SALINE FLUSH Throat Lozenges (Benzocaine/Menthol 1 Lozenge) 1 lozenge MUCOUS MEM Q2H PRN PRN PRN Reason: SORE THROAT STROKE Vital Signs/Narrative: Vital Signs Temp Pulse Resp BP Pulse Ox 09/21/20 06:50 61 09/21/20 06:37 97.5 F L 61 18 141/47 H 94 Medical Necessity - Tobacco Use Smoking Status: Former smoker - Patient quit cigarette tobacco usage approximately 10 years prior with prior to this 1 pack/day since he had been a teenager. Tobacco Use: Non-smoker Assessment/Plan All Active Problems (Last Reviewed 05/27/20 @ 15:08 by Renetta Ying) Renal failure (Acute) Acute kidney injury superimposed on CKD (Acute) Thrombocytopenia (Acute) DEVAN (acute kidney injury) (Resolved) Patient is a 70-year-old gentleman with multiple comorbidities including chronic kidney disease who was referred to the ED by his primary street openings inspector with worsening kidney function. Admitted to regular nursing floor with consultation placed to nephrology 1. Chronic kidney disease stage IV with worsening kidney function ?Plan was for patient to have been initiated on dialysis per the referring street openings inspector. Patient was however seen by Dr. Gutierrez with nephrology recommended discontinuation of potential nephrotoxic medication and monitoring of patient's kidney function - 09/21/2020; patient seen no significant improvement in his kidney function. 24-hour urine collection currently pending 2. Diabetes mellitus type II -patient's oral hypoglycemics held. -Placed on long acting insulin, Accu-Cheks a.c. and at bedtime and covered with sliding scale insulin 3. Hypertension - Blood pressure controlled, home medications continued with dose adjustment as needed 4. Dyslipidemia -Patient is on statin therapy, continued at home dose 5. Gout ?Patient is on allopurinol 6. Anemia - Secondary to chronic disorder monitoring H&H and transfuse if patient becomes symptomatic or hemoglobin falls below 7 7. Morbid obesity with BMI of 46.1 ?Weight loss advised 8. Obstructive sleep apnea ?Patient is on CPAP at night 10. Chronic diastolic congestive heart failure ?Currently compensated 11. Thrombocytopenia ?Chronic patient was started on heparin on admission discontinued 12. DVT prophylaxis -avoided the use of chemoprophylaxis in view of patient's low platelet count Inpatient E&M: 18574 Subs Hosp L2
[2020-09-21] MEDS: Ipratropium/Albuterol Sulfate 3 ML AMPUL.NEB INHALATION ×2 (07:50→19:40)
[2020-09-21 07:54] LABS: Differential Indicated SCAN CRITERIA MET; Hypochromasia 1+; Platelet Estimate MKD DEC (ADEQ)
[2020-09-21 08:01] LABS: Albumin, Serum 3.4 g/dL (3.2-5.0); BUN 120 mg/dL (7-18); BUN/Creat Ratio 34.6 RATIO (10-20); Calcium,Total 8.9 mg/dL (8.5-10.1); Chloride 106 mmol/L (98-107); Creatinine, Serum 3.47 mg/dL (0.70-1.30); EST Glomerular Filtration Rate 19 mL/min (>60); Est Glom Filt Rate - Afr Amer 23 mL/min (>60); Estimated Creatinine Clearance 19.87 ml/min; Glucose 115 mg/dL (74-106); Magnesium 2.9 mg/dL (1.6-2.6); Phosphorus 4.9 mg/dL (2.5-4.9); Potassium 3.7 mmol/L (3.5-5.1); Sodium Level 140 mmol/L (136-145)
[2020-09-21 08:26] LABS: Bedside Glucose 122 mg/dL (70-110)
[2020-09-21] MEDS: Insulin Lispro 100 UNIT/ML INSULN.PEN 16 UNIT SC ×2 (08:29→17:06)
[2020-09-21] MEDS: cloNIDine HCl 0.1 MG Tablet 0.3 MG PO ×2 (08:34→21:30)
[2020-09-21] MEDS: Carvedilol 25 MG Tablet 50 MG PO ×2 (08:35→21:30)
[2020-09-21] MEDS: Aspirin 81 MG TAB.CHEW PO (08:35)
[2020-09-21] MEDS: Allopurinol 100 MG Tablet PO (08:35)
[2020-09-21] MEDS: Fluticasone 0.05% 1 SPRAY NASAL.SRY 2 SPRAY NASAL (08:35)
--- NOTE | 2020-09-21 10:22 | PN.RENAL_ITS ---
Patient Problems: Active and Suspected Problems (Last Reviewed 05/27/20 @ 15:08 by Renetta Ying) Renal failure (Acute) Acute kidney injury superimposed on CKD (Acute) Thrombocytopenia (Acute) Subjective: reviewed labs, 24h urine CRCL 43cc/min, kidney US normal. Pt does not require initiating dialysis. No uremic symptoms since admit. CXR clear. Ok to dc to home from renal standpoint. Lymphedema chronic, follow up with wound center. Follow low sodium diet 2g/day. Hold torsemide until f/u in office with me in 1 week. Follow up with me in with renal panel, cbc. Follow up with hematology for anemia, thrombocytopenia. Follow up with vascular surgeon for revision of AVF. - Physical Exam Vitals/I&O's: Vital Signs Temp Pulse Resp BP Pulse Ox 97.5 F L 61 18 141/47 H 94 09/21/20 06:37 09/21/20 06:50 09/21/20 06:37 09/21/20 06:37 09/21/20 07:50 Oxygen Delivery Method Room Air Weight: 146.4 kg Body Mass Index (BMI) 46.4 Finger Stick Blood Glucose 131 Intake and Output for Last 24 Hours 09/19/20 09/20/20 09/21/20 23:59 23:59 23:59 Intake Total 350 / 350 1120 / 1270 150 / 150 Output Total 1250 / 1250 1375 / 1625 250 / 250 Balance -900 / -900 -255 / -355 -100 / -100 Laboratory Results 09/20/20 12:12: POC Glucose 168 H 09/20/20 17:14: POC Glucose 130 H 09/20/20 19:15: Creatinine 3.3 H, Est GFR (MDRD) Af Amer 24 L, Est GFR (MDRD) Non-Af 20 L, Urine Collection Time 24.0, Timed Urine Volume 2500, Urine Creatinine 81.5, Creatinine Clearance 43 L 09/20/20 19:15: Urine Collection Time 24.0, Timed Urine Volume 2500, Ur Total Protein 24 Hr 827.5 H, Urine Total Protein 33.1 H 09/20/20 21:07: POC Glucose 181 H 09/21/20 07:15: WBC 5.3, RBC 2.89 L, Hgb 9.5 L, Hct 29.5 L, MCV 102.1 H, MCH 32.9 H, MCHC 32.2, RDW Std Deviation 56.5 H, RDW Coeff of Gina 15.0 H, Plt Count 78 L, MPV 10.4, Immature Gran % (Auto) 0.600, Neut % (Auto) 73.4 H, Lymph % (Auto) 10.2 L, [place] % (Auto) 12.0 H, Eos % (Auto) 3.0, Baso % (Auto) 0.8, Absolute Neuts (auto) 3.9, Absolute Lymphs (auto) 0.54 L, Nucleated RBC % 0, Platelet Estimate MKD DEC, Hypochromasia 1+ 09/21/20 07:15: Sodium 140, Potassium 3.7, Chloride 106, Carbon Dioxide 30.0, BUN 120 H*, Creatinine 3.47 H, Estim Creat Clear Calc 19.87, Est GFR (MDRD) Af Amer 23 L, Est GFR (MDRD) Non-Af 19 L, BUN/Creatinine Ratio 34.6 H, Glucose 115 H, Calcium 8.9, Phosphorus 4.9, Magnesium 2.9 H, Albumin 3.4 09/21/20 08:21: POC Glucose 122 H Current Medications Acetaminophen (Acetaminophen 325 Mg Tablet) 650 mg PO Q6H PRN PRN PRN Reason: Pain Score 1-10/Temp > 100.7 F Al Hydroxide/Mg Hydroxide (Mag Hydrox/Al Hydrox/Simeth 30 Ml Udc) 30 ml PO Q6H PRN PRN PRN Reason: Gastric Burning Albuterol Sulfate (Albuterol 2.5 Mg/3 Ml Vial.Neb.) 2.5 mg INHALATION Q2H PRN PRN PRN Reason: Dyspnea, wheezing Albuterol/Ipratropium (Ipratropium/Albuterol Sulfate 3 Ml Ampul.Neb) 3 ml INHALATION Q6HWA.RT [facility] Last Admin: 09/21/20 07:50 Dose: 3 ml Documented by: Allopurinol ([facility] 100 Mg Tablet) [facility] Last Admin: 09/21/20 08:35 Dose: 100 mg Documented by: Aspirin (Aspirin 81 Mg Tab.Chew) 81 mg PO DAILYCM [facility] Last Admin: 09/21/20 08:35 Dose: 81 mg Documented by: Atorvastatin Calcium (Atorvastatin Calcium 80 Mg Tablet) 80 mg PO QHS [facility] Last Admin: 09/20/20 21:11 Dose: 80 mg Documented by: Carvedilol (Carvedilol 25 Mg Tablet) 50 mg PO BID [facility] Last Admin: 09/21/20 08:35 Dose: 50 mg Documented by: Cholecalciferol (Cholecalciferol (Vit D3) 1,000 Unit (25mcg)) 1,000 unit PO SUWESA [facility] Last Admin: 09/21/20 08:35 Dose: 1,000 unit Documented by: Clonidine (Clonidine Hcl 0.1 Mg Tablet) 0.3 mg PO BID [facility] Last Admin: 09/21/20 08:34 Dose: 0.3 mg Documented by: Fluticasone Propionate (Fluticasone 0.05% 1 [place] Nasal.Sry) 2 spray NASAL DAILY [facility] Last Admin: 09/21/20 08:35 Dose: 2 spray Documented by: Guaifenesin (Guaifenesin 10 Ml Udc (200mg/10ml)) 20 ml PO Q4H PRN PRN PRN Reason: COUGH Hydralazine HCl (Hydralazine 25 Mg Tablet) 25 mg PO TID [facility] Last Admin: 09/21/20 06:50 Dose: 25 mg Documented by: Hydralazine HCl (Hydralazine 20 Mg/Ml Vial) 10 mg IV Q4H PRN PRN PRN Reason: SBP > 160 Insulin Glargine (Insulin Glargine 100 Units/Ml Pen) 40 units SC BREAKFAST [facility] Last Admin: 09/21/20 08:29 Dose: 40 units Documented by: Insulin Glargine (Insulin Glargine 100 Units/Ml Pen) 30 units SC DINNER [facility] Last Admin: 09/20/20 17:22 Dose: 30 units Documented by: Insulin Human Lispro (Insulin Lispro 100 Unit/Ml Insuln.Pen) 16 unit SC BIDCM [facility] Last Admin: 09/21/20 08:29 Dose: 16 u Documented by: Insulin Human Lispro (Insulin Lispro 100 Unit/Ml Insuln.Pen) 0 unit SC ACHS [facility]; Protocol Last Admin: 09/21/20 08:29 Dose: Not Given Documented by: Isosorbide Mononitrate (Isosorbide Mononitrate 120 Mg Tablet) 120 mg PO DAILY [facility] Last Admin: 09/21/20 08:35 Dose: 120 mg Documented by: Magnesium Hydroxide (Magnesium Hydroxide 30 Ml Udc) 30 ml PO DAILY PRN PRN PRN Reason: Constipation Melatonin (Melatonin 3 Mg Tablet) 3 mg PO QHS PRN PRN PRN Reason: INSOMNIA Nitroglycerin (Nitroglycerin (Inpatient Use) 0.4 Mg Tab.Subl) 0.4 mg SUBLINGUAL Q5M PRN PRN Reason: CARDIAC/CHEST PAIN Nystatin (Nystatin Powder 15gm Bottle) 1 applic TOPICAL TID [facility]; Protocol Last Admin: 09/21/20 06:49 Dose: 1 applicatio Documented by: Ondansetron HCl (Ondansetron 4 Mg/2 Ml Vial) 4 mg IV Q8H PRN PRN PRN Reason: NAUSEA/VOMITING Prochlorperazine Edisylate (Prochlorperazine 10 Mg/2 Ml Vial) 5 mg IV Q4H PRN PRN PRN Reason: Breakthrough nausea/vomiting Psyllium Hydrophilic Mucilloid (Psyllium 1 Packet) 1 packet PO DAILY PRN PRN PRN Reason: Constipation Senna/Docusate Sodium (Senna/Docusate Sodium 1 Tablet) 2 tablet PO BID PRN PRN PRN Reason: Constipation Sodium Chloride (0.9% Saline Lock 10 Ml Syringe) 10 - 40 ml IV UD PRN PRN Reason: SALINE FLUSH Throat Lozenges (Benzocaine/Menthol 1 Lozenge) 1 lozenge MUCOUS MEM Q2H PRN PRN PRN Reason: SORE THROAT Medical Necessity - Tobacco Use Smoking Status: Former smoker - Patient quit cigarette tobacco usage approximately 10 years prior with prior to this 1 pack/day since he had been a teenager. Tobacco Use: Non-smoker Assessment/Plan All Active Problems (Last Reviewed 05/27/20 @ 15:08 by Renetta Ying) Renal failure (Acute) Acute kidney injury superimposed on CKD (Acute) Thrombocytopenia (Acute) DEVAN (acute kidney injury) (Resolved)
[2020-09-21] MEDS: Magnesium Hydroxide 30 ML UDC PO (10:47)
[2020-09-21] MEDS: Insulin Lispro 100 UNIT/ML INSULN.PEN SC ×2 (12:10→17:06)
[2020-09-21 12:20] LABS: Bedside Glucose 187 mg/dL (70-110)
[2020-09-21 17:15] LABS: Bedside Glucose 163 mg/dL (70-110)
[2020-09-21] MEDS: Atorvastatin Calcium 80 MG Tablet PO (21:30)
[2020-09-21 21:41] LABS: Bedside Glucose 72 mg/dL (70-110)
[2020-09-22] VITALS (8 sets, daily range): BP systolic 133–162; BP diastolic 56–62; PULSE 57–71; RESP 16–18; TEMP 36.2–36.6; O2SAT 92–97
[2020-09-22 05:14] LABS: Absolute Lymphocyte Count 0.48 X10^3/uL (0.83-4.51); Absolute Neutrophil Count 3.9 X10^3/uL (2.0-7.7); Basophil# 0.02 X10^3/uL; Basophil% 0.4 % (0-1); Eosinophil# 0.22 X10^3/uL; Eosinophils% 4.2 % (0-5); Hematocrit 29.6 % (40-54); Hemoglobin 9.3 g/dL (13.0-16.5); Lymphocyte # 0.48 X10^3/ul (4.0); Lymphocyte % 9.1 % (19-41); Mean Corp Hgb Conc 31.4 g/dL (32-36); Mean Corpuscular Hgb 32.3 pg (27.0-32.0); Mean Corpuscular Volume 102.8 fL (80-94); Mean Platelet Vol. 11.1 fl (6.2-12.0); Monocyte# 0.62 X10^3/uL; Monocyte% 11.8 % (0-10); NRBC Flagged by Analyzer 0 % (0-5); Neutrophil # 3.89 X10^3/uL (2.7-7.7); Neutrophil % 73.9 % (47-70); POSITIVE COUNT YES; POSITIVE DIFFERENTIAL YES; Platelet Count 77 K/mm3 (150-450); RBC Distribution Width SD 56.6 fl (35.1-43.9); Red Blood Count 2.88 M/mm3 (4.6-6.2); White Blood Count 5.3 K/mm3 (4.4-11.0)
[2020-09-22 05:18] LABS: Differential Indicated SCAN CRITERIA MET
[2020-09-22 05:36] LABS: Albumin, Serum 3.2 g/dL (3.2-5.0); BUN 114 mg/dL (7-18); BUN/Creat Ratio 34.4 RATIO (10-20); Calcium,Total 8.4 mg/dL (8.5-10.1); Chloride 104 mmol/L (98-107); Creatinine, Serum 3.31 mg/dL (0.70-1.30); EST Glomerular Filtration Rate 20 mL/min (>60); Est Glom Filt Rate - Afr Amer 24 mL/min (>60); Estimated Creatinine Clearance 20.83 ml/min; Glucose 60 mg/dL (74-106); Phosphorus 4.3 mg/dL (2.5-4.9); Potassium 3.6 mmol/L (3.5-5.1); Sodium Level 141 mmol/L (136-145)
[2020-09-22] MEDS: hydrALAZINE 25 MG Tablet PO ×2 (06:36→14:08)
[2020-09-22] MEDS: Nystatin Powder 15gm Bottle 1 APPLIC TOPICAL (06:36)
[2020-09-22] MEDS: Ipratropium/Albuterol Sulfate 3 ML AMPUL.NEB INHALATION (07:12)
[2020-09-22 07:41] LABS: Bedside Glucose 74 mg/dL (70-110)
[2020-09-22] MEDS: Insulin Lispro 100 UNIT/ML INSULN.PEN 16 UNIT SC (08:08)
[2020-09-22] MEDS: Allopurinol 100 MG Tablet PO (08:10)
[2020-09-22] MEDS: cloNIDine HCl 0.1 MG Tablet 0.3 MG PO (09:13)
[2020-09-22] MEDS: Fluticasone 0.05% 1 SPRAY NASAL.SRY 2 SPRAY NASAL (09:14)
[2020-09-22] MEDS: Carvedilol 25 MG Tablet 50 MG PO (09:14)
[2020-09-22] MEDS: Aspirin 81 MG TAB.CHEW PO (09:16)
--- NOTE | 2020-09-22 11:06 | PCM.PN.REN ---
Patient Problems: Active and Suspected Problems (Last Reviewed 05/27/20 @ 15:08 by Renetta Ying) Renal failure (Acute) Acute kidney injury superimposed on CKD (Acute) Thrombocytopenia (Acute) Subjective: nausea this morning. No SOB at rest but still dyspneic going to BR. Edema improved, stable - Physical Exam Vitals/I&O's: Vital Signs Temp Pulse Resp BP Pulse Ox 97.9 F 71 16 148/62 H 93 09/22/20 09:01 09/22/20 09:01 09/22/20 09:01 09/22/20 09:01 09/22/20 09:01 Oxygen Delivery Method Room Air Weight: 146.6 kg Body Mass Index (BMI) 46.4 Finger Stick Blood Glucose 131 Intake and Output for Last 24 Hours 09/20/20 09/21/20 09/22/20 23:59 23:59 23:59 Intake Total 1120 / 1270 1380 / 1700 420 / 420 Output Total 1375 / 1625 250 / 250 Balance -255 / -355 1130 / 1450 420 / 420 General: Alert, Oriented x3, Cooperative Oral: Dry Mucosa Lungs: Clear to auscultation, Diminished Cardiovascular: Regular rate, No rub noted Abdomen: Bowel Sounds Present, Soft, Non Tender, Non-Distended, Obese Extremities: Edema - mild Skin: - - chrnic venous stasis skin changes BLE Musculoskeletal: No Muscle Wasting Neurological: Cranial nerves II-XII grossly intact, - - no tremor Psych/Mental Status: Normal Affect, Appropriate, Alert and oriented to time, place, person, mood and affect Laboratory Results 09/21/20 12:09: POC Glucose 187 H 09/21/20 17:05: POC Glucose 163 H 09/21/20 21:25: POC Glucose 72 09/22/20 04:41: WBC 5.3, RBC 2.88 L, Hgb 9.3 L, Hct 29.6 L, MCV 102.8 H, MCH 32.3 H, MCHC 31.4 L, RDW Std Deviation 56.6 H, RDW Coeff of Gina 15.0 H, Plt Count 77 L, MPV 11.1, Immature Gran % (Auto) 0.600, Neut % (Auto) 73.9 H, Lymph % (Auto) 9.1 L, [place] % (Auto) 11.8 H, Eos % (Auto) 4.2, Baso % (Auto) 0.4, Absolute Neuts (auto) 3.9, Absolute Lymphs (auto) 0.48 L, Nucleated RBC % 0 09/22/20 04:41: Sodium 141, Potassium 3.6, Chloride 104, Carbon Dioxide 30.0, BUN 114 H*, Creatinine 3.31 H, Estim Creat Clear Calc 20.83, Est GFR (MDRD) Af Amer 24 L, Est GFR (MDRD) Non-Af 20 L, BUN/Creatinine Ratio 34.4 H, Glucose 60 L, Calcium 8.4 L, Phosphorus 4.3, Albumin 3.2 09/22/20 07:32: POC Glucose 74 Current Medications Acetaminophen (Acetaminophen 325 Mg Tablet) 650 mg PO Q6H PRN PRN PRN Reason: Pain Score 1-10/Temp > 100.7 F Al Hydroxide/Mg Hydroxide (Mag Hydrox/Al Hydrox/Simeth 30 Ml Udc) 30 ml PO Q6H PRN PRN PRN Reason: Gastric Burning Albuterol Sulfate (Albuterol 2.5 Mg/3 Ml Vial.Neb.) 2.5 mg INHALATION Q2H PRN PRN PRN Reason: Dyspnea, wheezing Albuterol/Ipratropium (Ipratropium/Albuterol Sulfate 3 Ml Ampul.Neb) 3 ml INHALATION Q6HWA.RT [facility] Last Admin: 09/22/20 07:12 Dose: 3 ml Documented by: Allopurinol (Allopurinol 100 Mg Tablet) 100 mg PO DAILYCM [facility] Last Admin: 09/22/20 08:10 Dose: 100 mg Documented by: Aspirin (Aspirin 81 Mg Tab.Chew) [facility] Last Admin: 09/22/20 09:16 Dose: 81 mg Documented by: Atorvastatin Calcium (Atorvastatin Calcium 80 Mg Tablet) 80 mg PO QHS [facility] Last Admin: 09/21/20 21:30 Dose: 80 mg Documented by: Carvedilol (Carvedilol 25 Mg Tablet) 50 mg PO BID [facility] Last Admin: 09/22/20 09:14 Dose: 50 mg Documented by: Cholecalciferol (Cholecalciferol (Vit D3) 1,000 Unit (25mcg)) 1,000 unit PO SUWESA [facility] Last Admin: 09/21/20 08:35 Dose: 1,000 unit Documented by: Clonidine (Clonidine Hcl 0.1 Mg Tablet) 0.3 mg PO BID [facility] Last Admin: 09/22/20 09:13 Dose: 0.3 mg Documented by: Fluticasone Propionate (Fluticasone 0.05% 1 [place] Nasal.Sry) 2 spray NASAL DAILY [facility] Last Admin: 09/22/20 09:14 Dose: 2 spray Documented by: Guaifenesin (Guaifenesin 10 Ml Udc (200mg/10ml)) 20 ml PO Q4H PRN PRN PRN Reason: COUGH Hydralazine HCl (Hydralazine 25 Mg Tablet) 25 mg PO TID [facility] Last Admin: 09/22/20 06:36 Dose: 25 mg Documented by: Hydralazine HCl (Hydralazine 20 Mg/Ml Vial) 10 mg IV Q4H PRN PRN PRN Reason: SBP > 160 Insulin Glargine (Insulin Glargine 100 Units/Ml Pen) 40 units SC BREAKFAST [facility] Last Admin: 09/22/20 08:07 Dose: 20 units Documented by: Insulin Glargine (Insulin Glargine 100 Units/Ml Pen) 30 units SC DINNER [facility] Last Admin: 09/21/20 17:06 Dose: 30 units Documented by: Insulin Human Lispro (Insulin Lispro 100 Unit/Ml Insuln.Pen) 16 unit SC BIDCM [facility] Last Admin: 09/22/20 08:08 Dose: 8 u Documented by: Insulin Human Lispro (Insulin Lispro 100 Unit/Ml Insuln.Pen) 0 unit SC ACHS [facility]; Protocol Last Admin: 09/22/20 08:08 Dose: Not Given Documented by: Isosorbide Mononitrate (Isosorbide Mononitrate 120 Mg Tablet) 120 mg PO DAILY [facility] Last Admin: 09/22/20 09:16 Dose: 120 mg Documented by: Magnesium Hydroxide (Magnesium Hydroxide 30 Ml Udc) 30 ml PO DAILY PRN PRN PRN Reason: Constipation Last Admin: 09/21/20 10:47 Dose: 30 ml Documented by: Melatonin (Melatonin 3 Mg Tablet) 3 mg PO QHS PRN PRN PRN Reason: INSOMNIA Nitroglycerin (Nitroglycerin (Inpatient Use) 0.4 Mg Tab.Subl) 0.4 mg SUBLINGUAL Q5M PRN PRN Reason: CARDIAC/CHEST PAIN Nystatin (Nystatin Powder 15gm Bottle) 1 applic TOPICAL TID [facility]; Protocol Last Admin: 09/22/20 06:36 Dose: 1 applicatio Documented by: Ondansetron HCl (Ondansetron 4 Mg/2 Ml Vial) 4 mg IV Q8H PRN PRN PRN Reason: NAUSEA/VOMITING Prochlorperazine Edisylate (Prochlorperazine 10 Mg/2 Ml Vial) 5 mg IV Q4H PRN PRN PRN Reason: Breakthrough nausea/vomiting Psyllium Hydrophilic Mucilloid (Psyllium 1 Packet) 1 packet PO DAILY PRN PRN PRN Reason: Constipation Senna/Docusate Sodium (Senna/Docusate Sodium 1 Tablet) 2 tablet PO BID PRN PRN PRN Reason: Constipation Sodium Chloride (0.9% Saline Lock 10 Ml Syringe) 10 - 40 ml IV UD PRN PRN Reason: SALINE FLUSH Throat Lozenges (Benzocaine/Menthol 1 Lozenge) 1 lozenge MUCOUS MEM Q2H PRN PRN PRN Reason: SORE THROAT Medical Necessity - Tobacco Use Smoking Status: Former smoker - Patient quit cigarette tobacco usage approximately 10 years prior with prior to this 1 pack/day since he had been a teenager. Tobacco Use: Non-smoker Assessment/Plan All Active Problems (Last Reviewed 05/27/20 @ 15:08 by Renetta Ying) Renal failure (Acute) Acute kidney injury superimposed on CKD (Acute) Thrombocytopenia (Acute) DEVAN (acute kidney injury) (Resolved) 1. Acute on CKD stage 4 with baseline creatinine in the mid 2's to 3's. Creatinine 4.2 on 09/18, down to 3.7 on 09/19 now stable at 3.3 off diuretics. 24h urine CRCL 43cc/min. Renal US unremarkable. Currently without uremic symptoms. AVF left forearm placed in May 2020 with poor maturation. Need referral back to his vascular surgeon for revision. Follow up with me in 1-2 wks. 2. Dyspnea with exertion likely due to IMAN, super morbid obesity. CXR clear. Check ambulatory stress test for oxygen at home. Follow low sodium diet, fluid restriction. Resume torsemide 20mg nce a day on discharge to home and hold metolazone. 3. Dependent edema, lymphedema likely due to morbid obesity, follow 2g sodium diet, fluid restrictin 1500-1800cc/day 4. Super morbid obesity. 5. Iron def anemia follow up with Dr. Camarena. Epo x1 yesterday 6. DM2 primary service mgmt 7. HTN BP stable 8. thrombocytopenia f/u with hematology [facility] hospitalist
[2020-09-22 11:31] LABS: Bedside Glucose 135 mg/dL (70-110)
--- NOTE | 2020-09-22 14:19 | DCINST_ITS ---
- Discharge Diagnoses Current Active Problems: Current Active and Chronic Problems (Last Reviewed 05/27/20 @ 15:08 by Renetta Ying) Renal failure (Acute) Acute kidney injury superimposed on CKD (Acute) Thrombocytopenia (Acute) Diabetes mellitus, type II (Chronic) IMAN (obstructive sleep apnea) (Chronic) Chronic diastolic (congestive) heart failure (Chronic) Secondary pulmonary arterial hypertension (Chronic) Right bundle branch block (RBBB) (Chronic) Essential (primary) hypertension (Chronic) Hyperlipidemia (Chronic) Lymphedema of both lower extremities (Chronic) Chronic kidney disease (CKD) (Chronic) You will use the following diet at home:: Calorie/Carbohydrate Controlled (specify 1200, 1400, etc) - 1800, Renal (restricted protein/sodium) Your food should be the consistency of: Regular Your liquids should be the consistency of: Regular/Thin Call your doctor if you observe: Fever of 101 or Higher, Shortness of breath, Dizziness, Fainting spells, Swelling in the ankles, Chest pain, Increased palpitations (irregular heartbeat) Allergies/Adverse Reactions: Allergies ARB-Angiotensin Receptor Antagonist Allergy (Verified 09/19/20 14:39) WORSENS RENAL FUNCTION WORSENS RENAL FUNCTION amoxicillin Adverse Reaction (Verified 09/19/20 11:56) Upset Stomach Medications to take at Discharge Aspirin [Aspirin, Baby] 81 mg PO DAILY 03/03/15 Fluticasone 0.05% [Flonase Nasal [place]] 2 spray NASAL DAILY 12/31/15 Insulin Glargine,Hum.rec.anlog [Lantus] 40 unit SQ BREAKFAST 12/31/15 Pioglitazone [Actos] 30 mg PO DAILY 12/31/15 Sitagliptin Phosphate [Januvia] 50 mg PO DAILY 11/03/16 Allopurinol [Zyloprim] 100 mg PO DAILYCM 03/03/19 Carvedilol [Coreg] 50 mg PO BID 03/03/19 Cholecalciferol (VIT D3) [Vitamin D3] 1,000 unit PO SUWESA 03/03/19 Clonidine HCl [Catapres] 0.3 mg PO BID 03/03/19 Insulin Aspart [Novolog Flexpen] 16 units SUBCUT BIDCM 03/03/19 Insulin Glargine,Hum.rec.anlog [Lantus] 30 unit SQ DINNER 03/03/19 Isosorbide Mononitrate [Isosorbide Mononitrate ER] 120 mg PO DAILY 03/03/19 Repaglinide [Prandin] 4 mg PO TID 03/03/19 Umeclidinium Brm/Vilanterol Tr [Anoro Ellipta 62.5-25 Mcg INH] 1 puff IH DAILY 03/03/19 hydrALAZINE [Apresoline] 25 mg PO TID 03/03/19 atorvastatin 80 mg tablet 80 mg PO DAILY #90 tab 04/04/19 Albuterol Inhaler [Ventolin Hfa] 2 puff INHALATION Q6H PRN PRN 04/27/19 metolazone 2.5 mg tablet 2.5 mg PO MOTH 10/25/19 Linagliptin [Tradjenta] 5 mg PO DAILY 09/19/20 Nitroglycerin (INPATIENT USE) [Nitrostat] 0.4 mg SUBLINGUAL Q5M PRN 09/19/20 Triamcinolone 0.1% Cream [Kenalog] 1 applic TP DAILY PRN PRN 09/19/20 Torsemide 20 mg PO DAILY #0 tab 09/22/20 Primary Care Physician: Jean-Claude Garcia MD [Primary Care Provider] - Please follow up with your Primary Care Physician in: 3-5 days Test Results: Test results from this visit will be discussed in further detail at your follow- up appointment, if applicable. Please Follow Up With: DR. BENNETT When: TUESDAY
--- NOTE | 2020-09-22 18:06 | DS.PCM_ITS ---
Discharge Date and Diagnosis - Problem List Patient Problems: Active and Suspected Problems (Last Reviewed 05/27/20 @ 15:08 by Renetta Ying) Renal failure (Acute) Acute kidney injury superimposed on CKD (Acute) Thrombocytopenia (Acute) Date of Admission: 09/19/20 Date of Discharge: 09/22/20 - Primary Discharge Diagnosis Acute Problems: Active Problems (Last Reviewed 05/27/20 @ 15:08 by Renetta Ying) Renal failure (Acute) Acute kidney injury superimposed on CKD (Acute) Thrombocytopenia (Acute) - Secondary Discharge Diagnosis Chronic Problems: Chronic Problems (Last Reviewed 05/27/20 @ 15:08 by Renetta Ying) Diabetes mellitus, type II (Chronic) IMAN (obstructive sleep apnea) (Chronic) Chronic diastolic (congestive) heart failure (Chronic) Secondary pulmonary arterial hypertension (Chronic) Right bundle branch block (RBBB) (Chronic) Essential (primary) hypertension (Chronic) Hyperlipidemia (Chronic) Lymphedema of both lower extremities (Chronic) Chronic kidney disease (CKD) (Chronic) Hospital Course and Treatment Imaging Results: Clinical Impression(s) from Imaging Studies Chest X-Ray 09/19/20 15:42 IMPRESSION: No definite acute or significant abnormality seen. Electronically Signed: Denis Mackenzie MD at 16:16 EST , Service support , Renal Ultrasound 09/20/20 08:33 IMPRESSION: Normal ultrasound of the kidneys and urinary bladder. Electronically Signed: Denis Mackenzie MD at 17:28 EST , Service support , Consults: Nephrology Operations: None Procedures: None Summary of Care Provided: Per HPI: The patient is a 70 y/o M w/ PMHx: Chronic anemia/AOCD, Chronic Thrombocytopenia, HTN, HLD, IMAN on CPAP q HS, Diabetes mellitus type II, BL LE Chronic Lymphedema and wounds [facility], Chronic COPD, Former Tobacco use, Chronic Diastolic CHF who presents to the [facility] ED on 09/19/20 secondary to referral per his Braille Coder (Rich at [facility]) but declined to transition to [facility] and requested to remain at [facility] for initiation with history of worsening dyspnea, worse with exertion patient to occasional nausea, more severe since even [address] Gutierrez was contacted per ED and amenable to take of the patient locally. Work-up in the ED included T 97.1, heart rate 66, BP 157/64, respiratory rate 22, 97% on room air, CBC with WC 7.9, hemoglobin 9.2, platelet 76 with lymphopenia noted, BMP with BUN/creatinine 127/3.70, glucose 128, EKG with SR with RBBB. Labs from day prior with Cr 4.21, glucose 277, K 4.6. Upon patient mention discussed case with Dr. Gutierrez who also requested chest x-ray given patient reported worsening dyspnea, worse with exertion. She noted intention review thoroughly [facility] records to ascertain if patient is truly appropriate to transition to dialysis. Hospital Course: 1. CKD 4 with worsening renal function/HTN/HLD/DM 9-32-acwl-old male who presented to the hospital on recommendation of his outpatient coating mixer supervisor for further evaluation given worsening renal function. He was initially seeing a coating mixer supervisor with [facility] however when given the option to transfer up to [facility] facility he preferred to stay down here as this is where he lives. He has decided to transition to one of the local nephrologists so he does not to drive all the way up to the [facility]. In discussion with the coating mixer supervisor she recommended that he continue with his diuretic therapy though at a decreased dose of 20 mg daily instead of 40 mg twice daily. Renal ultrasound was obtained which was unremarkable and Dr. Gutierrez does not feel that he is at the point of needing dialysis. He will need to follow-up with his outpatient surgeon who did the fistula for evaluation and possibly recannulization if dialysis does become necessary. His creatinine did improve to 3.31 on the day of discharge and his BUN improved to 114. He has been completely asymptomatic from his uremia. No changes were made to his diabetic medications however his chronic kidney disease is likely secondary to his diabetes and his hypertension. His home medications were continued where appropriate. I discussed with him the plan for discharge today and expressed understanding of the risk benefits of going home and would like to go home. He states that he feels normal and he did not know why he had to be admitted in the first place. 2. Chronic thrombocytopenia, chronic diastolic CHF, chronic COPD, chronic anemia with iron deficiency, gout, chronic bilateral lower extremity lymphedema, IMAN, former tobacco use are all chronic medical conditions which complicate his care. His home medications were continued where appropriate. Patient Problems: Active and Suspected Problems (Last Reviewed 05/27/20 @ 15:08 by Renetta Ying) Renal failure (Acute) Acute kidney injury superimposed on CKD (Acute) Thrombocytopenia (Acute) - Physical Exam Vitals/I&O's: Vital Signs Temp Pulse Resp BP Pulse Ox 97.9 F 68 16 162/58 H 92 09/22/20 14:04 09/22/20 14:08 09/22/20 14:04 09/22/20 14:04 09/22/20 14:04 Oxygen Delivery Method Room Air Weight: 323 lb 3.163 oz Body Mass Index (BMI) 46.4 Finger Stick Blood Glucose 131 Intake and Output for Last 24 Hours 09/20/20 09/21/20 09/22/20 23:59 23:59 23:59 Intake Total 1120 / 1270 1380 / 1700 420 / 420 Output Total 1375 / 1625 250 / 250 Balance -255 / -355 1130 / 1450 420 / 420 General: Alert, Oriented x3, Cooperative, No apparent distress HEENT: Atraumatic, PERRLA, EOMI, Normocephalic Oral: Moist Mucosa Neck: Supple, No JVD Lungs: Normal air movement, No rhonchi, No wheeze, No rales, Diminished Cardiovascular: Regular rate, Regular Rhythm, Normal S1, Normal S2, No murmurs Abdomen: Soft, Non Tender, Non-Distended, No Hepato-splenomegaly Extremities: Capillary Refill Less than 3 Seconds, Edema - Lymphedema with chronic venous stasis changes Skin: - - Bilateral lower extremity chronic venous stasis changes Neurological: Neuro grossly intact, Sensory exam intact to light touch and pain Psych/Mental Status: Normal Affect, Appropriate Laboratory Results 09/21/20 21:25: POC Glucose 72 09/22/20 04:41: WBC 5.3, RBC 2.88 L, Hgb 9.3 L, Hct 29.6 L, MCV 102.8 H, MCH 32.3 H, MCHC 31.4 L, RDW Std Deviation 56.6 H, RDW Coeff of Gina 15.0 H, Plt Count 77 L, MPV 11.1, Immature Gran % (Auto) 0.600, Neut % (Auto) 73.9 H, Lymph % (Auto) 9.1 L, [place] % (Auto) 11.8 H, Eos % (Auto) 4.2, Baso % (Auto) 0.4, Absolute Neuts (auto) 3.9, Absolute Lymphs (auto) 0.48 L, Nucleated RBC % 0 09/22/20 04:41: Sodium 141, Potassium 3.6, Chloride 104, Carbon Dioxide 30.0, BUN 114 H*, Creatinine 3.31 H, Estim Creat Clear Calc 20.83, Est GFR (MDRD) Af Amer 24 L, Est GFR (MDRD) Non-Af 20 L, BUN/Creatinine Ratio 34.4 H, Glucose 60 L , Calcium 8.4 L, Phosphorus 4.3, Albumin 3.2 09/22/20 07:32: POC Glucose 74 09/22/20 11:25: POC Glucose 135 H Call your doctor if you observe: Fever of 101 or Higher, Shortness of breath, Dizziness, Fainting spells, Swelling in the ankles, Chest pain, Increased palpitations (irregular heartbeat) Home Medications: Medications to take at Discharge Aspirin [Aspirin, Baby] 81 mg PO DAILY 03/03/15 Fluticasone 0.05% [Flonase Nasal [place]] 2 spray NASAL DAILY 12/31/15 Insulin Glargine,Hum.rec.anlog [Lantus] 40 unit SQ BREAKFAST 12/31/15 Pioglitazone [Actos] 30 mg PO DAILY 12/31/15 Sitagliptin Phosphate [Januvia] 50 mg PO DAILY 11/03/16 Allopurinol [Zyloprim] 100 mg PO DAILYCM 03/03/19 Carvedilol [Coreg] 50 mg PO BID 03/03/19 Cholecalciferol (VIT D3) [Vitamin D3] 1,000 unit PO SUWESA 03/03/19 Clonidine HCl [Catapres] 0.3 mg PO BID 03/03/19 Insulin Aspart [Novolog Flexpen] 16 units SUBCUT BIDCM 03/03/19 Insulin Glargine,Hum.rec.anlog [Lantus] 30 unit SQ DINNER 03/03/19 Isosorbide Mononitrate [Isosorbide Mononitrate ER] 120 mg PO DAILY 03/03/19 Repaglinide [Prandin] 4 mg PO TID 03/03/19 Umeclidinium Brm/Vilanterol Tr [Anoro Ellipta 62.5-25 Mcg INH] 1 puff IH DAILY 03/03/19 hydrALAZINE [Apresoline] 25 mg PO TID 03/03/19 atorvastatin 80 mg tablet 80 mg PO DAILY #90 tab 04/04/19 Albuterol Inhaler [Ventolin Hfa] 2 puff INHALATION Q6H PRN PRN 04/27/19 metolazone 2.5 mg tablet 2.5 mg PO MOTH 10/25/19 Linagliptin [Tradjenta] 5 mg PO DAILY 09/19/20 Nitroglycerin (INPATIENT USE) [Nitrostat] 0.4 mg SUBLINGUAL Q5M PRN 09/19/20 Triamcinolone 0.1% Cream [Kenalog] 1 applic TP DAILY PRN PRN 09/19/20 Torsemide 20 mg PO DAILY #0 tab 09/22/20 Primary Care Physician: Jean-Claude Whiting MD [Primary Care Provider] - Please follow up with your Primary Care Physician in: 3-5 days Please Follow Up With: DR. GUTIERREZ When: TUESDAY Please Follow Up With: DR. WHITING When: TUESDAY Disposition: Home Minutes spent on discharge:: 35 Patient Condition:: Stable Medical Necessity - Tobacco Use Smoking Status: Former smoker - Patient quit cigarette tobacco usage approximately 10 years prior with prior to this 1 pack/day since he had been a teenager. Tobacco Use: Non-smoker Meaningful Use Info Meaningful Use Diagnoses (Choose all that apply): None applicable Inpatient E&M: 34654 Disch Hosp
--- NOTE | 2020-09-23 12:05 | CASEMGMT ---
RN CM Discharge Follow-up Phone Call: JUAREZ: Brie Strata: 3 Call Date: 09/23/20 Discharge Date: 09/22/20 Time of Call: 1200 Duration: 1 min Admitting Diagnosis: DEVAN on CKD Stage [employer] CM attempted to complete follow-up phone call after recent hospitalization. No answer, voice message left with return contact information. Patient had follow-up appointments scheduled prior to discharge.
== END 2020-09-22 15:31 | disposition home or self-care (01) | DRG 683 ==
LOC: ED 14:31 → MS3 14:50
PROVIDERS: Internal Medicine; Internal Medicine Nephrology; Admitting Provider Family Medicine; Emergency Provider Emergency Medicine; PCP Family Medicine; Visit Provider Family Medicine
DX: N17.9 Acute kidney failure, unspecified (principal); I13.0 Hypertensive heart and chronic kidney disease with heart failure and stage 1 through stage 4 chronic kidney disease, or unspecified chronic kidney disease; I50.32 Chronic diastolic (congestive) heart failure; Z68.42 Body mass index [BMI] 45.0-49.9, adult; D69.6 Thrombocytopenia, unspecified; N18.4 Chronic kidney disease, stage 4 (severe); E11.22 Type 2 diabetes mellitus with diabetic chronic kidney disease; Z87.891 Personal history of nicotine dependence; D63.1 Anemia in chronic kidney disease; Z79.4 Long term (current) use of insulin; Z79.899 Other long term (current) drug therapy; E78.5 Hyperlipidemia, unspecified; D50.9 Iron deficiency anemia, unspecified; J44.9 Chronic obstructive pulmonary disease, unspecified; M10.9 Gout, unspecified; I89.0 Lymphedema, not elsewhere classified; G47.33 Obstructive sleep apnea (adult) (pediatric); E66.01 Morbid (severe) obesity due to excess calories; Z91.11 Patient's noncompliance with dietary regimen
CPT/HCPCS: 36415; 71045; 76770; 80048; 80053; 80069; 82575; 82962; 83735; 84100; 84156; 85025; 93005; 94640; 97110; 97161; 97165; 97530; 97802; 97803; 99285; A4216; Q5106

== ENCOUNTER 2020-10-09 11:42 | Inpatient (IN) | payer MEDICARE, OTHER, SELFPAY ==
[2020-09-19 15:11] VITALS: BMI 46.4
[2020-10-09] VITALS (9 sets, daily range): BP systolic 157–179; BP diastolic 60–70; PULSE 62–71; RESP 18–28; TEMP 35.9–36.7; O2SAT 92–98; BMI 48.3; BMI 49.0; BMI 49.1
--- NOTE | 2020-10-09 12:03 | EKG12_ITS ---
Test Reason : Blood Pressure : / mmHG Vent. Rate : 063 BPM Atrial Rate : 060 BPM P-R Int : 000 ms QRS Dur : 152 ms QT Int : 480 ms P-R-T Axes : 000 -70 046 degrees QTc Int : 491 ms Right bundle branch block Left anterior fascicular block Bifascicular block Abnormal ECG Confirmed by SHELTON GARCIA, SUBHA ([id number]), copy editor JOSEPH ZELAYA ([id number]) on 10/13/2020 9:37:32 AM Referred By: MUSA Confirmed By:SUBHA PEOPLES MD
--- NOTE | 2020-10-09 12:05 | ED.DCSUM_ITS ---
- ER Visit Summary Date of Service: 10/09/20 Chief Complaint: Shortness of breath and swelling History of Present Illness: The patient is a 70 M who presents with shortness of breath and swelling has been getting worse over the past 3 to 4 weeks. Patient states he feels like it is hard to breathe. Patient states this is worse with any exertion. Patient states this is localized to his chest. Patient admits to a 20 pound weight gain over the past 2 weeks. Patient has a history of chronic kidney disease but does not take dialysis yet. Patient admits to some shortness of breath and a cough. Patient denies any fevers or chills. Patient denies any nausea or vomiting. Patient denies any chest pain. Physical Examination: Vital signs are stable. Patient is afebrile. Patient is in no acute distress. Oral mucosa is pink and moist. Neck is supple. Trachea is midline. There is no JVD. Heart was regular rate and rhythm. Lungs were diminished bilaterally, worse in the bases. Abdomen is soft. Bowel sounds are normal. There is mild diffuse tenderness. There is no rebound or guarding noted. Extremities were intact. There is 3+ edema of the lower extremities bilaterally. Cranial nerves II through XII are intact. There are no focal motor or sensory deficits. Test Results: EKG was obtained. On my interpretation, it shows a normal sinus rhythm with a rate of 63. There is a right bundle branch block and a left anterior fascicular block. There are no acute ST or T wave changes. Portable chest x-ray is obtained. There is 1 view. On my interpretation, there is some congestive heart failure noted. There is no effusion. There are no infiltrates noted. There is cardiomegaly. Radiologist also interpreted the x-ray and agrees. CBC shows a mild anemia with a hemoglobin 9.9 hematocrit 32.4. Comprehensive metabolic profile showed a BUN of 94 and creatinine of 3.22. These are consistent with prior results. PT with INR and PTT were within normal limits. Troponin was normal. BNP was elevated at 307. There are no prior tomy ues to compare with. Emergency Department Course and Treatment: Patient was given Lasix here. Case was discussed with the hospitalist. He will admit the patient to his service. Patient understood and was agreeable with the plan. All questions were answered. Disposition: Admit to hospital Impression: 1. Congestive heart failure This note was generated with [employer] dictation software. It may contain incorrect words, spelling, and punctuation that were not noted in review of the chart prior to signing ED Disposition - Plan for ED Patient: Disposition: Acute Care Hospital [facility] Diagnosis: Chronic diastolic (congestive) heart failure, Chronic kidney disease (CKD) Referrals: Jean-Claude Garcia MD [Primary Care Provider] -
--- NOTE | 2020-10-09 12:35 | RAD_ITS ---
STUDY: X-RAY CHEST REASON FOR EXAM: Male, 70 years old. INCREASED SOB AND SWELLING X MONTHS. TECHNIQUE: Single AP portable view of the chest. COMPARISON: Comparison is made with prior study dated 09/19/2020. FINDINGS: EKG electrode are seen. There is evidence of vascular congestion. There is blunting of both cost phrenic angles with mild degree of bibasilar atelectasis. There is mild cardiac enlargement. Normal mediastinum and gregg. Normal visualized pulmonary arteries. There is atherosclerotic calcification of the aortic arch with tortuosity. There are diffuse degenerative changes of the visualized thoracic spine. Normal visualized ribs, clavicles, and shoulders. There is no demonstrated abnormality of the visualized soft tissue structures of the upper abdomen. RAD/Chest 1 View (Portable) IMPRESSION: Mild cardiomegaly and mild degree of CHF with blunting of both costophrenic angles and mild degree of bibasilar atelectasis. Electronically Signed: Delvis Chilel, at 13:16 EST , Service support ,
[2020-10-09 13:07] LABS: Absolute Lymphocyte Count 0.35 X10^3/uL (0.83-4.51); Absolute Neutrophil Count 4.8 X10^3/uL (2.0-7.7); Basophil# 0.02 X10^3/uL; Basophil% 0.3 % (0-1); Eosinophil# 0.15 X10^3/uL; Eosinophils% 2.6 % (0-5); Hematocrit 32.4 % (40-54); Hemoglobin 9.9 g/dL (13.0-16.5); Lymphocyte # 0.35 X10^3/ul (4.0); Mean Corp Hgb Conc 30.6 g/dL (32-36); Mean Corpuscular Hgb 31.6 pg (27.0-32.0); Mean Corpuscular Volume 103.5 fL (80-94); Mean Platelet Vol. 11.7 fl (6.2-12.0); Monocyte# 0.48 X10^3/uL; Monocyte% 8.2 % (0-10); NRBC Flagged by Analyzer 0 % (0-5); Neutrophil # 4.81 X10^3/uL (2.7-7.7); Neutrophil % 82.4 % (47-70); POSITIVE COUNT YES; POSITIVE DIFFERENTIAL YES; Platelet Count 79 K/mm3 (150-450); RBC Distribution Width CV 15.9 % (11.6-14.6); RBC Distribution Width SD 58.8 fl (35.1-43.9); Red Blood Count 3.13 M/mm3 (4.6-6.2); White Blood Count 5.8 K/mm3 (4.4-11.0)
[2020-10-09 13:11] LABS: International Normalized Ratio 1.3; Prothrombin Time (Protime)PT. 15.2 SECONDS (11.7-14.9)
[2020-10-09 13:12] LABS: Partial Thromboplast Time 29.5 Seconds (24.1-36.2)
[2020-10-09 13:19] LABS: AST(SGOT) 15 U/L (15-37); Alanine Aminotransfer ALT/SGPT 30 U/L (16-61); Albumin, Serum 3.5 g/dL (3.2-5.0); Alkaline Phosphatase 62 U/L (45-117); Anion Gap 6 (5-15); BUN 94 mg/dL (7-18); BUN/Creat Ratio 29.2 RATIO (10-20); Calcium,Total 8.8 mg/dL (8.5-10.1); Chloride 107 mmol/L (98-107); Creatinine, Serum 3.22 mg/dL (0.70-1.30); EST Glomerular Filtration Rate 20 mL/min (>60); Est Glom Filt Rate - Afr Amer 25 mL/min (>60); Estimated Creatinine Clearance 21.41 ml/min; Globulin 3.5 g/dL (2.2-4.2); Glucose 138 mg/dL (74-106); Potassium 4.3 mmol/L (3.5-5.1); Sodium Level 139 mmol/L (136-145)
[2020-10-09 13:29] LABS: Differential Indicated SCAN CRITERIA MET
[2020-10-09 13:34] LABS: BNP,B-Type NATRIURETIC PEPTIDE 307.1 pg/mL (0-100)
[2020-10-09] MEDS: Furosemide 40 MG/4 ML Vial IV ×2 (14:18→18:29)
--- NOTE | 2020-10-09 15:23 | PCM.HP.STD ---
Problem List (1) (HFpEF) heart failure with preserved ejection fraction Status: Acute Qualifiers: Heart failure chronicity: acute Qualified Code(s): I50.31 - Acute diastolic (congestive) heart failure (2) Morbid obesity Status: Chronic (3) Anemia Status: Chronic (4) Renal failure Status: Chronic Qualifiers: Renal failure chronicity: chronic Chronic kidney disease stage: stage 4 (severe) Qualified Code(s): N18.4 - Chronic kidney disease, stage 4 (severe) (5) Thrombocytopenia Status: Chronic (6) Diabetes mellitus, type II Status: Chronic Qualifiers: (7) IMAN (obstructive sleep apnea) Status: Chronic (8) Chronic diastolic (congestive) heart failure Status: Chronic (9) Secondary pulmonary arterial hypertension Status: Chronic (10) Right bundle branch block (RBBB) Status: Chronic (11) Essential (primary) hypertension Status: Chronic (12) Hyperlipidemia Status: Chronic Qualifiers: (13) Lymphedema of both lower extremities Status: Chronic History of Present Illness Date of Admission: 10/09/20 Chief Complaint: RODRIGUEZ The patient is a 70 year old M with a known history of chronic kidney disease stage IV and CHF presents with increasing shortness of breath since he was last admitted. Patient presenting with dyspnea on exertion is steadily gotten worse since he was discharged on September 22. Patient at that time had acute kidney injury and was taking metolazone as well as torsemide 40 mg twice daily. Upon discharge, the metolazone was discontinued, he is only taking it twice a week, and his torsemide was cut back from 40 twice daily to 20 daily. He states that he is put on 20pounds and has increased lower extremity edema. He presented to the emergency room and had a chest x-ray that showed CHF. He received a one-time dose of IV furosemide 40 mg. Patient was not hypoxic. Did discuss with the patient about increasing his diuretics for home or admission. He would prefer admission which I think is reasonable. [] Past Medical History Past Medical History (Chronic Problems): Chronic Problems (Last Reviewed 05/27/20 @ 15:08 by Renetta Ying) Morbid obesity (Chronic) Anemia (Chronic) Renal failure (Chronic) Thrombocytopenia (Chronic) Diabetes mellitus, type II (Chronic) IMAN (obstructive sleep apnea) (Chronic) Chronic diastolic (congestive) heart failure (Chronic) Secondary pulmonary arterial hypertension (Chronic) Right bundle branch block (RBBB) (Chronic) Essential (primary) hypertension (Chronic) Hyperlipidemia (Chronic) Lymphedema of both lower extremities (Chronic) Medical History: Medical History (Last Reviewed 10/09/20 @ 15:[address] Destin Cain, DO) Chronic diastolic (congestive) heart failure (Chronic) I50.32 Secondary pulmonary arterial hypertension (Chronic) I27.21 Right bundle branch block (RBBB) (Chronic) I45.10 Essential (primary) hypertension (Chronic) I10 Hyperlipidemia (Chronic) E78.5 Lymphedema of both lower extremities (Chronic) I89.0 Chronic kidney disease (CKD) (Chronic) N18.9 BMI 33.0-33.9,adult Z68.33 Non-pressure ulcer of right lower extremity with fat layer exposed L97.912 Traumatic open wound of right lower leg with delayed healing S81.801D Type 2 diabetes mellitus E11.9 DEVAN (acute kidney injury) (Resolved) N17.9 Gastrointestinal bleed K92.2 Syncope and collapse R55 CKD (chronic kidney disease), stage III N18.3 Traumatic open wound of right lower leg (Inactive) S81.801A Wound of right leg (Inactive) S81.801A Allergies ARB-Angiotensin Receptor Antagonist Allergy (Verified 09/19/20 14:39) WORSENS RENAL FUNCTION WORSENS RENAL FUNCTION amoxicillin Adverse Reaction (Verified 09/19/20 11:56) Upset Stomach Home Medications: Ambulatory Orders Medication Instructions Recorded Aspirin [Aspirin, Baby] 81 mg PO DAILY 03/03/15 Fluticasone 0.05% [Flonase Nasal 2 spray NASAL DAILY 12/31/15 [place]] Insulin Glargine,Hum.rec.anlog 40 unit SQ BREAKFAST 12/31/15 [Lantus] Pioglitazone [Actos] 30 mg PO DAILY 12/31/15 Allopurinol [Zyloprim] 100 mg PO DAILYCM 03/03/19 Carvedilol [Coreg] 50 mg PO BID 03/03/19 Cholecalciferol (VIT D3) [Vitamin 1,000 unit PO SUWESA 03/03/19 D3] Clonidine HCl [Catapres] 0.3 mg PO BID 03/03/19 Insulin Aspart [Novolog Flexpen] 16 units SUBCUT BIDCM 03/03/19 Insulin Glargine,Hum.rec.anlog 30 unit SQ DINNER 03/03/19 [Lantus] Isosorbide Mononitrate [Isosorbide 120 mg PO DAILY 03/03/19 Mononitrate ER] Repaglinide [Prandin] 4 mg PO TID 03/03/19 Umeclidinium Brm/Vilanterol Tr 1 puff IH DAILY 03/03/19 [Anoro Ellipta 62.5-25 Mcg INH] hydrALAZINE [Apresoline] 25 mg PO TID 03/03/19 atorvastatin 80 mg tablet 80 mg PO DAILY #90 tab 04/04/19 Albuterol Inhaler [Ventolin Hfa] 2 puff INHALATION Q6H PRN PRN 04/27/19 Linagliptin [Tradjenta] 5 mg PO DAILY 09/19/20 Nitroglycerin (INPATIENT USE) 0.4 mg SUBLINGUAL Q5M PRN 09/19/20 [Nitrostat] Triamcinolone 0.1% Cream [Kenalog] 1 applic TP DAILY PRN PRN 09/19/20 Torsemide 20 mg PO DAILY #0 tab 09/22/20 Surgical History: Surgical History (Last Reviewed 10/09/20 @ 15:[address] Destin Cain DO) A-V fistula Onset Date: 05/09/20 I77.0 LUE History of cataract surgery Z98.49 Surgical History: cataract, - - AVF left radiocephalic, nasal cyst removal. Psychiatric History: No pertinent psych hx Smoking Status: Former smoker - *Family History Sibling Family History: Family History (Last Reviewed 10/09/20 @ 15:[address] Destin Cain DO) Other Diabetes Heart disease Hypertension History Items: Heart Disease Paternal Family History: Family History (Last Reviewed 10/09/20 @ 15:[address] Destin Cain DO) Other Diabetes Heart disease Hypertension History Items: Cancer - Other with a history of possibly lymphoma., Diabetes Maternal Family History: Family History (Last Reviewed 10/09/20 @ 15:[address] Destin Cain DO) Other Diabetes Heart disease Hypertension History Items: Diabetes, Heart Disease, Hypertension Review of Systems Constitutional: Reports: - - Denies any COVID-19 contacts. Denies any anosmia nor dysgeusia. Denies: Anorexia, Chills, Fever, Night Sweats Eyes: Denies: Blurred vision, Double vision HEENT: Denies: Head Aches, Sinus Congestion, Sinus Drainage Cardiovascular: Reports: Edema. Denies: Chest Pain, Palpitations Respiratory: Reports: Shortness of breath upon exertion. Denies: Cough Gastrointestinal: Denies: Abdominal Pain, Nausea, Vomiting Genitourinary: Denies: Dysuria Musculoskeletal: Denies: Joint Pain, Joint Tenderness Skin: Reports: - - Chronic lymphedema changes in his legs Neurological: Denies: Numbness, Tingling, Focal weakness Comment: All review of systems were negative except as mentioned above in the history of present illness and the other review of systems. VTE Information - Inpt Only VTE Present on Admission: No VTE Mechan Device Prophylaxis: None VTE Pharm Prophylaxis ordered?: Yes - Physical Exam Vitals/I&O's: Vital Signs Temp Pulse Resp BP Pulse Ox 36.6 C 63 18 166/67 H 95 10/09/20 13:39 10/09/20 13:39 10/09/20 13:39 10/09/20 13:39 10/09/20 13:39 Oxygen Delivery Method Room Air Weight: 152.861 kg Body Mass Index (BMI) 48.3 Finger Stick Blood Glucose 131 General: Alert, Cooperative, No apparent distress, - - No scleral icterus HEENT: Atraumatic, Normocephalic Oral: Moist Mucosa, No Gingival or Mucosal Lesions/ Ulcerations Neck: No JVD - Though difficult to determine with is thick neck tissue., No Nodes, Thyroid Normal Size and Texture Lungs: Clear to auscultation, Normal air movement, No rhonchi, No wheeze, No rales Cardiovascular: Regular rate, Regular Rhythm, Normal S1, Normal S2 Extremities: - - Tot lower extremity edema bilaterally with lymphedema changes. Neurological: Muscle tone normal, Coordination normal Psych/Mental Status: Normal Affect, Appropriate Laboratory Results 10/09/20 12:25: WBC 5.8, RBC 3.13 L, Hgb 9.9 L, Hct 32.4 L, MCV 103.5 H, MCH 31.6, MCHC 30.6 L, RDW Std Deviation 58.8 H, RDW Coeff of Gina 15.9 H, Plt Count 79 L, MPV 11.7, Immature Gran % (Auto) 0.500, Neut % (Auto) 82.4 H, Lymph % (Auto) 6.0 L, [place] % (Auto) 8.2, Eos % (Auto) 2.6, Baso % (Auto) 0.3, Absolute Neuts (auto) 4.8, Absolute Lymphs (auto) 0.35 L, Nucleated RBC % 0, Differential Comment , Diff Path Review January10/09/20 12:25: PT 15.2 H, INR 1.3, APTT 29.5 10/09/20 12:25: Sodium 139, Potassium 4.3, Chloride 107, Carbon Dioxide 26.0, Anion Gap 6, BUN 94 H, Creatinine 3.22 H, Estim Creat Clear Calc 21.41, Est GFR (MDRD) Af Amer 25 L, Est GFR (MDRD) Non-Af 20 L, BUN/Creatinine Ratio 29.2 H, Glucose 138 H, Calcium 8.8, Total Bilirubin 0.90, AST 15, ALT 30, Alkaline Phosphatase 62, Troponin I < 0.015, Total Protein 7.0, Albumin 3.5, Globulin 3.5, Albumin/Globulin Ratio 1.0 10/09/20 12:25: B-Natriuretic Peptide 307.1 H Chest x-ray reviewed and showed bilateral pulmonary vascular congestion which could be increased from imaging performed on September 19, 2020. Assessment/Plan All Active Problems (Last Reviewed 05/27/20 @ 15:08 by Renetta Ying) (HFpEF) heart failure with preserved ejection fraction (Acute) DEVAN (acute kidney injury) (Resolved) 1. Acute heart failure with preserved ejection fraction: EF of 60% from echocardiogram in 2018. Complicating this is some mild pulmonary hypertension. Patient had right jugular systolic pressure of 40 mmHg. Plan is to continue with IV furosemide for next 24 to 48 hours depending on how his kidney function is with the diuretic challenge. Of fluid restrict 1500 cc/day. Given the patient's last echocardiogram was over 2 years ago we will repeat another echocardiogram to see if there is been any changes. Patient will need to follow-up with cardiology. This is likely brought on by a reduction in his diuretics. That reduction was due to his acute kidney injury on chronic kidney disease stage IV. Nutrition consultation for dietary restriction recommendations. 2. Chronic kidney disease stage IV: Creatinine overall better at 3.22. Monitor closely while he is on diuretics. No need for renal replacement therapy at this time. Consider nephrology consultation if his creatinine does get significantly worse. 3. Diabetes mellitus type 2: Continue with his basal and prandial insulin. Actually cutting his prandial insulin from 16 twice a day to 10 3 times a day. Will also add sliding scale. Patient also on oral hypoglycemics. Monitor closely with combination of insulin and oral hypoglycemics. 4. Thrombocytopenia: Chronic. Monitor. 5. VTE prophylaxis: Subcu heparin. 6. Advanced care planning: Discussed with patient. Patient unsure. Informed patient I will be leaving him at full CODE STATUS and explained what that meant unless he indicates to us otherwise. Inpatient E&M: 35484 Init Hosp L3
--- NOTE | 2020-10-09 16:17 | ECHOCS_ITS ---
Reason For Study: CHF Procedure This was a 2D Doppler, Color Flow transthoracic echocardiogram. The study was technically difficult. Contrast injection was performed. Poor apical windows. Exam performed portable in patient room. Left Ventricle Based upon the 2D echocardiographic and contrast enhanced images obtained there appears to be grossly normal left ventricular size, wall motion, and systolic function. The estimated ejection fraction is 65 %. There is evidence of diastolic dysfunction. Right Ventricle Based upon the 2D echocardiographic images obtained there appears to be grossly normal right ventricular size and systolic function. Atria The left atrium is mildly enlarged. The right atrium is mildly enlarged. No doppler evidence for ASD. Mitral Valve There is no mitral annular calcification. Mild focal mitral valve calcification of the anterior leaflet. Trivial mitral valve insufficiency. Tricuspid Valve Normal tricuspid valve. Mild tricuspid valve insufficiency. Right ventricular systolic pressure estimated to be 63 mmHg. Aortic Valve The aortic valve is not well visualized. Pulmonic Valve The pulmonic valve is not well visualized. Great Vessels Normal sized aortic root. Pericardium/Pleural No pericardial effusion. Medication Diluted definity 3.0ml given slow IV push to enhance endocardial definition. MMode/2D Measurements & Calculations RVDd: 4.4 cm Ao root diam: 3.1 cm LAV(MOD-bp): 68.1 ml LAV(MOD-bp) Indexed: 26.0 ml/m2 LAV(MOD-sp2): 75.0 ml LAV(MOD-sp4): 64.0 ml SV(MOD-sp4): 75.1 ml SV(sp4-el): 77.3 ml LVAd ap4: 30.8 cm2 EDV(MOD-sp4): 107.9 ml EDV(sp4-el): 110.9 ml LVAs ap4: 15.1 cm2 ESV(MOD-sp4): 32.8 ml ESV(sp4-el): 33.6 ml EF(MOD-sp4): 69.6 % EF(sp4-el): 69.7 % LA dimension(2D): 4.6 cm LA A4 area: 22.1 cm2 RA A4 area: 20.9 cm2 Time Measurements MV dec time: 0.23 sec Doppler Measurements & Calculations MV E max kenny: 144.5 cm/sec Lat Peak E' Kenny: 3.7 cm/sec Med Peak E' Kenny: 4.8 cm/sec MV A max kenny: 107.7 cm/sec E/E' lat: 38.6 E/E' med: 30.2 MV E/A: 1.3 MV V2 max: 151.1 cm/sec Ao V2 max: 237.7 cm/sec LV V1 max: 162.4 cm/sec MV max P.1 mmHg Ao max P.6 mmHg LV V1 max P.6 mmHg MV V2 mean: 79.6 cm/sec Ao V2 mean: 161.9 cm/sec LV V1 mean P.7 mmHg MV mean P.0 mmHg Ao mean P.8 mmHg LV V1 mean: 109.5 cm/sec MV V2 VTI: 48.2 cm Ao V2 VTI: 50.0 cm LV V1 VTI: 35.0 cm PA V2 max: 126.1 cm/sec TR max kenny: 388.7 cm/sec MV P1/2t-pr_phl: 114.0 msec TR max P.4 mmHg Interpretation Summary The study was technically difficult. Contrast injection was performed. Based upon the 2D echocardiographic and contrast enhanced images obtained there appears to be grossly normal left ventricular size, wall motion, and systolic function. The estimated ejection fraction is 65 %. The left atrium is mildly enlarged. The right atrium is mildly enlarged. Mild focal mitral valve calcification of the anterior leaflet. Trivial mitral valve insufficiency. Mild tricuspid valve insufficiency. Right ventricular systolic pressure estimated to be 63 mmHg c/w pulmonary hypertension. There is evidence of diastolic dysfunction. Ordering Physician: Destin Cain Referring Physician: JESUS WHITING Performed By: Mima Ho, RDCS, RVT
[2020-10-09 17:40] LABS: Bedside Glucose 69 mg/dL (70-110)
[2020-10-09 18:16] LABS: Bedside Glucose 76 mg/dL (70-110)
[2020-10-09] MEDS: Carvedilol 25 MG Tablet 50 MG PO (18:29)
[2020-10-09] MEDS: Ipratropium/Albuterol Sulfate 3 ML AMPUL.NEB INHALATION (19:10)
--- NOTE | 2020-10-09 19:44 | CPS ---
pt states wears a cpap/bipap at home-asked if someone could bring in
[2020-10-09] MEDS: Atorvastatin Calcium 80 MG Tablet PO (21:34)
[2020-10-09] MEDS: hydrALAZINE 25 MG Tablet PO (21:34)
[2020-10-09] MEDS: cloNIDine HCl 0.1 MG Tablet 0.3 MG PO (21:34)
[2020-10-09] MEDS: Heparin Injection (Vial) 5,000 UNIT/ML VIAL 5000 UNIT SC (21:35)
[2020-10-09 21:41] LABS: Bedside Glucose 129 mg/dL (70-110)
[2020-10-10] VITALS (16 sets, daily range): BP systolic 146–150; BP diastolic 46–65; PULSE 60–70; RESP 18; TEMP 36.5–37; O2SAT 90–95
--- NOTE | 2020-10-10 02:59 | PCS.PANDOC ---
PANDEMIC DOCUMENTATION INITIATED: Date: 10/09/20 Time: 1899
[2020-10-10] MEDS: hydrALAZINE 25 MG Tablet PO ×3 (06:10→21:10)
[2020-10-10] MEDS: Ipratropium/Albuterol Sulfate 3 ML AMPUL.NEB INHALATION ×3 (07:03→20:05)
[2020-10-10 07:13] LABS: Anion Gap 7 (5-15); BUN 74 mg/dL (7-18); BUN/Creat Ratio 31.5 RATIO (10-20); Calcium,Total 8.3 mg/dL (8.5-10.1); Chloride 110 mmol/L (98-107); Creatinine, Serum 2.35 mg/dL (0.70-1.30); EST Glomerular Filtration Rate 29 mL/min (>60); Est Glom Filt Rate - Afr Amer 35 mL/min (>60); Estimated Creatinine Clearance 29.34 ml/min; Glucose 75 mg/dL (74-106); Potassium 4.9 mmol/L (3.5-5.1); Sodium Level 138 mmol/L (136-145)
[2020-10-10] MEDS: Carvedilol 25 MG Tablet 50 MG PO ×2 (08:13→17:18)
[2020-10-10] MEDS: Pioglitazone Hydrochloride 30 MG Tablet PO (08:13)
[2020-10-10] MEDS: Aspirin 81 MG TAB.CHEW PO (08:13)
[2020-10-10] MEDS: Allopurinol 100 MG Tablet PO (08:14)
[2020-10-10] MEDS: cloNIDine HCl 0.1 MG Tablet 0.3 MG PO ×2 (08:14→21:10)
[2020-10-10] MEDS: LINAGLIPTIN 5 MG TABLET PO (08:14)
[2020-10-10] MEDS: Fluticasone 0.05% 1 SPRAY NASAL.SRY 2 SPRAY NASAL (08:15)
[2020-10-10] MEDS: Heparin Injection (Vial) 5,000 UNIT/ML VIAL 5000 UNIT SC (08:37)
[2020-10-10] MEDS: Furosemide 40 MG/4 ML Vial IV ×2 (08:37→17:20)
[2020-10-10 09:10] LABS: Bedside Glucose 77 mg/dL (70-110)
[2020-10-10 11:16] LABS: Bedside Glucose 111 mg/dL (70-110)
--- NOTE | 2020-10-10 12:10 | PN_ITS ---
Patient Problems: Active and Suspected Problems (Last Reviewed 10/09/20 @ 15:[address] Destin Cain, DO) (HFpEF) heart failure with preserved ejection fraction (Acute) Subjective: Patient seen and examined. He was admitted with a complaint of shortness of breath and lower extremity swelling, and is being managed for acute on chronic heart failure. He has no complaints now and feels his shortness of breath is getting better. Review of systems otherwise negative. He has remained hemodynamically stable. Creatinine is trending down from 3.2 to 2.35. Vitals/I&O's: Vital Signs Temp Pulse Resp BP Pulse Ox 98.0 F 61 18 150/65 H 95 10/10/20 08:38 10/10/20 10:55 10/10/20 08:38 10/10/20 08:38 10/10/20 08:38 Oxygen Delivery Method Room Air Weight: 341 lb 14.991 oz Body Mass Index (BMI) 49.0 Finger Stick Blood Glucose 131 Intake and Output for Last 24 Hours 10/08/20 10/09/20 10/10/20 23:59 23:59 23:59 Intake Total 360 / 360 Output Total 600 / 600 Balance -240 / -240 General: Alert, Oriented x3, Cooperative, No apparent distress HEENT: Atraumatic, PERRLA, EOMI, Normocephalic Oral: Dry Mucosa Neck: Supple, No JVD, Negative Carotid Bruits Lungs: Clear to auscultation, Normal air movement, No rhonchi, No wheeze, No rales Cardiovascular: Regular rate, Regular Rhythm, Normal S1, Normal S2, No murmurs Abdomen: Bowel Sounds Present, Soft, Non Tender, Non-Distended, No Hepato- splenomegaly Extremities: No clubbing, No cyanosis, Capillary Refill Less than 3 Seconds, - - LE wrapped in YESSY bandage bilaterally Skin: No rashes, No breakdown Musculoskeletal: No Tenderness to Palpation of Joints or Extremities Lymphatic: No Cervical, Supraclavicular, or Inguinal Adenopathy Neurological: Cranial nerves II-XII grossly intact, Neuro grossly intact, Motor Exam 5/5 strength throughout Psych/Mental Status: Normal Affect, Appropriate, Alert and oriented to time, place, person, mood and affect Laboratory Results 10/09/20 12:25: WBC 5.8, RBC 3.13 L, Hgb 9.9 L, Hct 32.4 L, MCV 103.5 H, MCH 31.6, MCHC 30.6 L, RDW Std Deviation 58.8 H, RDW Coeff of Gina 15.9 H, Plt Count 79 L, MPV 11.7, Immature Gran % (Auto) 0.500, Neut % (Auto) 82.4 H, Lymph % (Auto) 6.0 L, [place]att % (Auto) 8.2, Eos % (Auto) 2.6, Baso % (Auto) 0.3, Absolute Neuts (auto) 4.8, Absolute Lymphs (auto) 0.35 L, Nucleated RBC % 0, Differential Comment , Diff Path Review January10/09/20 12:25: PT 15.2 H, INR 1.3, APTT 29.5 10/09/20 12:25: Sodium 139, Potassium 4.3, Chloride 107, Carbon Dioxide 26.0, Anion Gap 6, BUN 94 H, Creatinine 3.22 H, Estim Creat Clear Calc 21.41, Est GFR (MDRD) Af Amer 25 L, Est GFR (MDRD) Non-Af 20 L, BUN/Creatinine Ratio 29.2 H, Glucose 138 H, Calcium 8.8, Total Bilirubin 0.90, AST 15, ALT 30, Alkaline Phosphatase 62, Troponin I < 0.015, Total Protein 7.0, Albumin 3.5, Globulin 3.5, Albumin/Globulin Ratio 1.0 10/09/20 12:25: B-Natriuretic Peptide 307.1 H 10/09/20 16:59: POC Glucose 69 L 10/09/20 18:08: POC Glucose 76 10/09/20 21:33: POC Glucose 129 H 10/10/20 06:02: Sodium 138, Potassium 4.9, Chloride 110 H, Carbon Dioxide 21.0, Anion Gap 7, BUN 74 H, Creatinine 2.35 H, Estim Creat Clear Calc 29.34, Est GFR (MDRD) Af Amer 35 L, Est GFR (MDRD) Non-Af 29 L, BUN/Creatinine Ratio 31.5 H, Glucose 75, Calcium 8.3 L 10/10/20 08:03: POC Glucose 77 10/10/20 11:05: POC Glucose 111 H Diagnostic Data Chest X-Ray 10/09/20 12:35 IMPRESSION: Mild cardiomegaly and mild degree of CHF with blunting of both costophrenic angles and mild degree of bibasilar atelectasis. Electronically Signed: Delvis Chilel, at 13:16 EST , Service support , Current Medications Acetaminophen (Acetaminophen 325 Mg Tablet) 650 mg PO Q6H PRN PRN PRN Reason: Pain Score 1-10/Temp > 100.7 F Albuterol Sulfate (Albuterol 2.5 Mg/3 Ml Vial.Neb.) 2.5 mg INHALATION Q4H PRN PRN Reason: SOB/WHEEZING Albuterol/Ipratropium (Ipratropium/Albuterol Sulfate 3 Ml Ampul.Neb) 3 ml INHALATION Q6HWA.RT [facility] Last Admin: 10/10/20 07:03 Dose: 3 ml Documented by: Allopurinol (Allopurinol 100 Mg Tablet) [facility] Last Admin: 10/10/20 08:14 Dose: 100 mg Documented by: Aspirin (Aspirin 81 Mg Tab.Chew) [facility] Last Admin: 10/10/20 08:13 Dose: 81 mg Documented by: Atorvastatin Calcium (Atorvastatin Calcium 80 Mg Tablet) 80 mg PO [facility] Last Admin: 10/09/20 21:34 Dose: 80 mg Documented by: Betamethasone Valerate (Betamethasone Valerate 0.1% Cream) 1 applic TOPICAL DAILY PRN PRN PRN Reason: DRY SKIN Carvedilol (Carvedilol 25 Mg Tablet) [facility] Last Admin: 10/10/20 08:13 Dose: 50 mg Documented by: Cholecalciferol (Cholecalciferol (Vit D3) 1,000 Unit (25mcg)) 1,000 unit PO SuWeSa@1000 [facility] Clonidine (Clonidine Hcl 0.1 Mg Tablet) 0.3 mg PO BID [facility] Last Admin: 10/10/20 08:14 Dose: 0.3 mg Documented by: Dextrose (Dextrose 50%-Water 25 Gm/50 Ml Disp.Syrin) 0 gm IV X1 PRN; Protocol PRN Reason: Hypoglycemia Fluticasone Propionate (Fluticasone 0.05% 1 [place] Nasal.Sry) 2 spray NASAL DAILY [facility] Last Admin: 10/10/20 08:15 Dose: 2 spray Documented by: Furosemide (Furosemide 40 Mg/4 Ml Vial) 40 mg IV BID@1000,1800 [facility] Last Admin: 10/10/20 08:37 Dose: 40 mg Documented by: Glucagon (Glucagon 1 Mg/Ml Syringe) 1 mg IM .X1 PRN PRN Reason: Hypoglycemia Heparin Sodium (Porcine) (Heparin Injection (Vial) 5,000 Unit/Ml Vial) 5,000 unit SC Q12 [facility] Last Admin: 10/10/20 08:37 Dose: 5,000 unit Documented by: Hydralazine HCl (Hydralazine 25 Mg Tablet) 25 mg PO TID [facility] Last Admin: 10/10/20 06:10 Dose: 25 mg Documented by: Sodium Chloride () 250 mls @ 15 mls/hr IV .[id number] PRN PRN Reason: Saline Flush Sodium Chloride () 250 mls @ 15 mls/hr IV .[id number] PRN PRN Reason: Additional IVPB Infusion Insulin Glargine (Insulin Glargine 100 Units/Ml Pen) 30 units SC DINNER [facility] Last Admin: 10/09/20 18:35 Dose: 30 units Documented by: Insulin Glargine (Insulin Glargine 100 Units/Ml Pen) 40 units SC BREAKFAST [facility] Last Admin: 10/10/20 08:13 Dose: Not Given Documented by: Insulin Human Lispro (Insulin Lispro 100 Unit/Ml Insuln.Pen) 10 unit SC TIDAC [facility] Last Admin: 10/10/20 11:26 Dose: Not Given Documented by: Insulin Human Lispro (Insulin Lispro 100 Unit/Ml Insuln.Pen) 0 unit SC TIDAC [facility]; Protocol Last Admin: 10/10/20 11:18 Dose: Not Given Documented by: Isosorbide Mononitrate (Isosorbide Mononitrate 120 Mg Tablet) 120 mg PO DAILY [facility] Last Admin: 10/10/20 08:14 Dose: 120 mg Documented by: Linagliptin (Linagliptin 5 Mg Tablet) 5 mg PO DAILY [facility] Last Admin: 10/10/20 08:14 Dose: 5 mg Documented by: Nitroglycerin (Nitroglycerin (Inpatient Use) 0.4 Mg Tab.Subl) 0.4 mg SUBLINGUAL Q5M PRN PRN Reason: CHEST Ondansetron HCl (Ondansetron 4 Mg/2 Ml Vial) 4 mg IV Q8H PRN PRN PRN Reason: NAUSEA/VOMITING Pioglitazone HCl (Pioglitazone Hydrochloride 30 Mg Tablet) 30 mg PO DAILY [facility] Last Admin: 10/10/20 08:13 Dose: 30 mg Documented by: Repaglinide (Repaglinide 2 Mg Tablet) 4 mg PO TIDCM [facility] Last Admin: 10/10/20 11:34 Dose: 4 mg Documented by: Sodium Chloride (0.9% Saline Lock 10 Ml Syringe) 10 - 40 ml IV UD PRN PRN Reason: SALINE FLUSH STROKE Vital Signs/Narrative: Vital Signs Temp Pulse Resp BP Pulse Ox 10/10/20 10:55 61 10/10/20 08:38 98.0 F 67 18 150/65 H 95 Medical Necessity - Tobacco Use Smoking Status: Former smoker Assessment/Plan All Active Problems (Last Reviewed 10/09/20 @ 15:[address] Destin Cain, DO) (HFpEF) heart failure with preserved ejection fraction (Acute) DEVAN (acute kidney injury) (Resolved) # Acute on chronic HFpEF * EF is 60% from previous 2D echo in 2018. His medications were recently adjusted with reduction of his diuretics on account of worsening CKD stage IV. * Is now being diuresed with IV Lasix. Monitor intake and output. On fluid restriction 1500 cc daily. * 2D echo ordered and is pending. * # CKD IV * Cr has trended down to 2.35 from 3.2 today * will monitor CR * if kidney function deteriorates, to consult nephrology * #Type 2 diabetes mellitus * Continue home dose of insulin Lantus 30 units nightly and 40 units with breakfast. Insulin sliding scale. Accu-Cheks AC at bedtime. Also on linagliptin. #Thrombocytopenia: * Platelets are 79. * This is chronic, but platelets are much lower than previously as in 2019, the lowest was 135. * Platelets have however been in the 70s since September 2020. * hold heparin for now. * #Anemia; Hb is 9.9, this is chronic and his baseline. Will monitor DVT prophylaxis: SCDs. Hold heparin o/a of thrombocytopenia Inpatient E&M: 49649 Subs Hosp L2
[2020-10-10 12:28] LABS: Pathologist Review Reviewed
--- NOTE | 2020-10-10 13:54 | CASEMGMT ---
Readmission chart review: Pt was initially admitted 09/19-09/22/20 to [facility] for DEVAN on CKD stage 4 and was sent in by [facility] vending machine repairer to get HD OP set up at that time. Dr. Gutierrez, vending machine repairer, was consulted here and pt did not need set up for OP HD at that time. Pt states he would like to switch to local vending machine repairer and has appt with Dr. Gutierrez on 10/16/20 at 0930. Pt declined any need for further therapy at that time. Pt's torsemide was changed from 40mg daily to 20mg daily at that time. Pt was scheduled with phone f/u w/ Dr. Lowe on 09/29/20. Pt returned to [facility] ED on 10/09/20 with increased SOB and swelling for months. Pt has been on room air since admission and initial sat in ED was 98%. Pt placed on iv Lasix 40mg twice daily and on 1500cc fluid restriction. Pt's BNPt is 307 and creatinine was initially 3.22 but down to 2.35 today. Nephrology to be consulted if worsening kidney function. Pt has been up in halls, ambulating without distress on room air to kitchen and back. CM to follow for any further discharge planning/needs. SStlashae LOPEZ CM
--- NOTE | 2020-10-10 15:24 | CASEMGMT ---
SW completed a Palliative Care screen and patient scored a 4. SW spoke with patient about Palliative Care and how the process would work if he decided he was interested. SW gave him a pamphlet. He wanted to talk with his family about it. SW let him know if he is interested he should talk to this primary care doctor and let him know so he can make the referral. Gretel BASILIO MSW
[2020-10-10] MEDS: Insulin Lispro 100 UNIT/ML INSULN.PEN 10 UNIT SC (17:17)
[2020-10-10 17:30] LABS: Bedside Glucose 125 mg/dL (70-110)
[2020-10-10] MEDS: Atorvastatin Calcium 80 MG Tablet PO (21:10)
[2020-10-10 21:41] LABS: Bedside Glucose 158 mg/dL (70-110)
[2020-10-11] VITALS (10 sets, daily range): BP systolic 138–158; BP diastolic 51–66; PULSE 61–66; RESP 15–18; TEMP 36.7–36.8; O2SAT 92–100
[2020-10-11] MEDS: hydrALAZINE 25 MG Tablet PO ×2 (06:02→13:10)
[2020-10-11] MEDS: Ipratropium/Albuterol Sulfate 3 ML AMPUL.NEB INHALATION (07:38)
[2020-10-11] MEDS: Pioglitazone Hydrochloride 30 MG Tablet PO (08:06)
[2020-10-11] MEDS: Fluticasone 0.05% 1 SPRAY NASAL.SRY 2 SPRAY NASAL (08:06)
[2020-10-11] MEDS: Carvedilol 25 MG Tablet 50 MG PO (08:07)
[2020-10-11] MEDS: Aspirin 81 MG TAB.CHEW PO (08:07)
[2020-10-11] MEDS: LINAGLIPTIN 5 MG TABLET PO (08:08)
[2020-10-11] MEDS: cloNIDine HCl 0.1 MG Tablet 0.3 MG PO (08:08)
[2020-10-11] MEDS: Allopurinol 100 MG Tablet PO (08:08)
[2020-10-11 08:24] LABS: Absolute Lymphocyte Count 0.47 X10^3/uL (0.83-4.51); Absolute Neutrophil Count 3.9 X10^3/uL (2.0-7.7); Basophil# 0.02 X10^3/uL; Basophil% 0.4 % (0-1); Eosinophil# 0.18 X10^3/uL; Eosinophils% 3.5 % (0-5); Hematocrit 29.6 % (40-54); Hemoglobin 9.2 g/dL (13.0-16.5); Lymphocyte # 0.47 X10^3/ul (4.0); Lymphocyte % 9.1 % (19-41); Mean Corp Hgb Conc 31.1 g/dL (32-36); Mean Corpuscular Hgb 31.8 pg (27.0-32.0); Mean Corpuscular Volume 102.4 fL (80-94); Monocyte# 0.57 X10^3/uL; NRBC Flagged by Analyzer 0 % (0-5); Neutrophil # 3.92 X10^3/uL (2.7-7.7); Neutrophil % 75.4 % (47-70); POSITIVE COUNT YES; POSITIVE DIFFERENTIAL YES; Platelet Count 94 K/mm3 (150-450); RBC Distribution Width CV 15.8 % (11.6-14.6); RBC Distribution Width SD 59.3 fl (35.1-43.9); Red Blood Count 2.89 M/mm3 (4.6-6.2); White Blood Count 5.2 K/mm3 (4.4-11.0)
[2020-10-11 08:25] LABS: Differential Indicated SCAN CRITERIA MET
[2020-10-11 08:26] LABS: Bedside Glucose 68 mg/dL (70-110)
[2020-10-11] MEDS: Furosemide 40 MG/4 ML Vial IV (08:27)
[2020-10-11] MEDS: 0.9% Saline Lock 10 ML Syringe IV (08:27)
[2020-10-11 08:44] LABS: Anion Gap 5 (5-15); BUN 97 mg/dL (7-18); BUN/Creat Ratio 30.6 RATIO (10-20); Calcium,Total 8.7 mg/dL (8.5-10.1); Chloride 109 mmol/L (98-107); Creatinine, Serum 3.17 mg/dL (0.70-1.30); EST Glomerular Filtration Rate 21 mL/min (>60); Est Glom Filt Rate - Afr Amer 25 mL/min (>60); Estimated Creatinine Clearance 21.75 ml/min; Glucose 66 mg/dL (74-106); Potassium 4.4 mmol/L (3.5-5.1); Sodium Level 142 mmol/L (136-145)
[2020-10-11 09:00] LABS: Hypochromasia RARE; Macrocytosis 1+; Platelet Estimate MOD DEC (ADEQ)
--- NOTE | 2020-10-11 11:42 | CASEMGMT ---
LW/POA forms in summary tab is echart. RAINE Strauss
[2020-10-11] MEDS: Insulin Lispro 100 UNIT/ML INSULN.PEN SC (11:51)
[2020-10-11] MEDS: Insulin Lispro 100 UNIT/ML INSULN.PEN 10 UNIT SC (11:51)
--- NOTE | 2020-10-11 12:01 | DCINST_ITS ---
- Discharge Diagnoses Current Active Problems: Current Active and Chronic Problems (Last Reviewed 10/09/20 @ 15:[address] Destin Cain, DO) (HFpEF) heart failure with preserved ejection fraction (Acute) Chronic diastolic (congestive) heart failure (Chronic) Chronic kidney disease (CKD) (Chronic) Morbid obesity (Chronic) Anemia (Chronic) Renal failure (Chronic) Thrombocytopenia (Chronic) Diabetes mellitus, type II (Chronic) IMAN (obstructive sleep apnea) (Chronic) Chronic diastolic (congestive) heart failure (Chronic) Secondary pulmonary arterial hypertension (Chronic) Right bundle branch block (RBBB) (Chronic) Essential (primary) hypertension (Chronic) Hyperlipidemia (Chronic) Lymphedema of both lower extremities (Chronic) You will use the following diet at home:: Cardiac, Fluid restricted (specify 2000 mls, 1500 mls) - 1500cc Your food should be the consistency of: Regular Discharge Activity: Return to Normal Activity Call your doctor if you observe: Shortness of breath, Dizziness, Swelling in the ankles, Increased palpitations (irregular heartbeat) Instructions: ED Heart Failure, Congestive (CHF) Allergies/Adverse Reactions: Allergies ARB-Angiotensin Receptor Antagonist Allergy (Verified 09/19/20 14:39) WORSENS RENAL FUNCTION WORSENS RENAL FUNCTION amoxicillin Adverse Reaction (Verified 09/19/20 11:56) Upset Stomach Medications to take at Discharge Aspirin [Aspirin, Baby] 81 mg PO DAILY 03/03/15 Fluticasone 0.05% [Flonase Nasal [place]] 2 spray NASAL DAILY 12/31/15 Insulin Glargine,Hum.rec.anlog [Lantus] 40 unit SQ BREAKFAST 12/31/15 Pioglitazone [Actos] 30 mg PO DAILY 12/31/15 Allopurinol [Zyloprim] 100 mg PO DAILYCM 03/03/19 Carvedilol [Coreg] 50 mg PO BID 03/03/19 Cholecalciferol (VIT D3) [Vitamin D3] 1,000 unit PO SUWESA 03/03/19 Clonidine HCl [Catapres] 0.3 mg PO BID 03/03/19 Insulin Aspart [Novolog Flexpen] 16 units SUBCUT BIDCM 03/03/19 Insulin Glargine,Hum.rec.anlog [Lantus] 30 unit SQ DINNER 03/03/19 Isosorbide Mononitrate [Isosorbide Mononitrate ER] 120 mg PO DAILY 03/03/19 Repaglinide [Prandin] 4 mg PO TID 03/03/19 Umeclidinium Brm/Vilanterol Tr [Anoro Ellipta 62.5-25 Mcg INH] 1 puff IH DAILY 03/03/19 hydrALAZINE [Apresoline] 25 mg PO TID 03/03/19 atorvastatin 80 mg tablet 80 mg PO DAILY #90 tab 04/04/19 Albuterol Inhaler [Ventolin Hfa] 2 puff INHALATION Q6H PRN PRN 04/27/19 Linagliptin [Tradjenta] 5 mg PO DAILY 09/19/20 Nitroglycerin (INPATIENT USE) [Nitrostat] 0.4 mg SUBLINGUAL Q5M PRN 09/19/20 Triamcinolone 0.1% Cream [Kenalog] 1 applic TP DAILY PRN PRN 09/19/20 Torsemide 40 mg PO DAILY #30 tab 10/11/20 The following prescriptions were given: Torsemide 40 mg PO DAILY #30 tab Transmission Status: Pending to [facility] #30 Primary Care Physician: Jean-Claude Garcia MD [Primary Care Provider] - Please follow up with your Primary Care Physician in: 1-2 weeks Test Results: Test results from this visit will be discussed in further detail at your follow- up appointment, if applicable. Please Follow Up With: Vickie Gutierrez DO Proposed Discharge Date: 10/11/20
[2020-10-11 12:16] LABS: Bedside Glucose 162 mg/dL (70-110)
--- NOTE | 2020-10-11 12:16 | DS.PCM_ITS ---
Discharge Date and Diagnosis - Problem List Patient Problems: Active and Suspected Problems (Last Reviewed 10/09/20 @ 15:[address] Destin Cain DO) (HFpEF) heart failure with preserved ejection fraction (Acute) Date of Admission: 10/09/20 Date of Discharge: 10/11/20 - Primary Discharge Diagnosis Acute Problems: Active Problems (Last Reviewed 10/09/20 @ 15:[address] Destin Cain DO) (HFpEF) heart failure with preserved ejection fraction (Acute) - Secondary Discharge Diagnosis Chronic Problems: Chronic Problems (Last Reviewed 10/09/20 @ 15:[address] Destin Cain DO) Chronic diastolic (congestive) heart failure (Chronic) Chronic kidney disease (CKD) (Chronic) Morbid obesity (Chronic) Anemia (Chronic) Renal failure (Chronic) Thrombocytopenia (Chronic) Diabetes mellitus, type II (Chronic) IMAN (obstructive sleep apnea) (Chronic) Chronic diastolic (congestive) heart failure (Chronic) Secondary pulmonary arterial hypertension (Chronic) Right bundle branch block (RBBB) (Chronic) Essential (primary) hypertension (Chronic) Hyperlipidemia (Chronic) Lymphedema of both lower extremities (Chronic) Hospital Course and Treatment Imaging Results: Diagnostic Data Chest X-Ray 10/09/20 12:35 IMPRESSION: Mild cardiomegaly and mild degree of CHF with blunting of both costophrenic angles and mild degree of bibasilar atelectasis. Electronically Signed: Delvis Chilel, at 13:16 EST , Service support , Operations: None Procedures: 2-D Echocardiogram Summary of Care Provided: The patient is a 70 year old M with a past medical history as outlined was a dmitted through the ED on 10/09/2020 with a complaint of worsening shortness of breath. Patient had been admitted recently and discharged on September 22, 2020 at which time he was managed for DEVAN. He had been on metolazone and torsemide 40 mg twice daily. On discharge, on account of worsening kidney function, metolazone was discontinued and torsemide was cut back from 20 twice daily to 20 mg daily. Patient says since that time, he has been getting more short of breath at home and his weight has been increasing and he thought he had put on about 20 pounds as well as having increased lower extremity edema. He therefore came into the ED with chest x-ray showed evidence of pulmonary edema due to CHF. BNP was elevated in the 300s. He was admitted and managed for acute on chronic heart failure. He was started on diuresis with IV Lasix 40 mg twice daily. 2D echo done showed EF of 65% with evidence of diastolic dysfunction and RV systolic pressure of 63 mmHg. Shortness of breath improved markedly lower extremity swelling also improved. Patient was discharged home with a prescription for p.o. Lasix 40 mg daily. Creatinine was 3.17 at time of discharge. I did speak to his environmental restoration planner Dr. Gutierrez about patient being discharged on p.o. torsemide 40 mg daily. He is to follow-up with her within a week. He is also to follow-up with his PCP and logistic manager. Patient seen and examined prior to discharge. He had no complaints and felt well and was eager to be discharged home. Review systems otherwise negative. Labs and vitals reviewed. Home medication reviewed and reconciled. O/E: Vital Signs Temp Pulse Resp BP Pulse Ox 98.2 F 66 18 145/66 H 95 10/11/20 13:06 10/11/20 13:10 10/11/20 13:06 10/11/20 13:10 10/11/20 13:06 [] General: Alert, Oriented x3, Cooperative, No apparent distress HEENT: Atraumatic, PERRLA, EOMI, Normocephalic Oral: Dry Mucosa Neck: Supple, No JVD, Negative Carotid Bruits Lungs: Clear to auscultation, Normal air movement, No rhonchi, No wheeze, No r ales Cardiovascular: Regular rate, Regular Rhythm, Normal S1, Normal S2, No murmurs Abdomen: Bowel Sounds Present, Soft, Non Tender, Non-Distended, No Hepato- splenomegaly Extremities: No clubbing, No cyanosis, Capillary Refill Less than 3 Seconds, - - LE wrapped in YESSY bandage bilaterally Skin: No rashes, No breakdown Musculoskeletal: No Tenderness to Palpation of Joints or Extremities Lymphatic: No Cervical, Supraclavicular, or Inguinal Adenopathy Neurological: Cranial nerves II-XII grossly intact, Neuro grossly intact, Motor Exam 5/5 strength throughout Psych/Mental Status: Normal Affect, Appropriate, Alert and oriented to time, place, person, mood and affect Plan is for discharge home today. Patient Problems: Active and Suspected Problems (Last Reviewed 10/09/20 @ 15:[address] Destin Cain DO) (HFpEF) heart failure with preserved ejection fraction (Acute) - Physical Exam Vitals/I&O's: Vital Signs Temp Pulse Resp BP Pulse Ox 98.1 F 61 15 138/61 H 93 10/11/20 08:01 10/11/20 08:01 10/11/20 08:01 10/11/20 08:01 10/11/20 08:01 Oxygen Delivery Method Room Air Weight: 335 lb 5.169 oz Body Mass Index (BMI) 49.0 Finger Stick Blood Glucose 131 Intake and Output for Last 24 Hours 10/09/20 10/10/20 10/11/20 23:59 23:59 23:59 Intake Total 360 / 360 900 / 900 630 / 630 Output Total 600 / 600 900 / 900 1100 / 1100 Balance -240 / -240 0 / 0 -470 / -470 Laboratory Results 10/09/20 12:25: Diff Path Review Reviewed 10/10/20 17:15: POC Glucose 125 H 10/10/20 21:14: POC Glucose 158 H 10/11/20 07:54: WBC 5.2, RBC 2.89 L, Hgb 9.2 L, Hct 29.6 L, MCV 102.4 H, MCH 31.8, MCHC 31.1 L, RDW Std Deviation 59.3 H, RDW Coeff of Gina 15.8 H, Plt Count 94 L, MPV 11.0, Immature Gran % (Auto) 0.600, Neut % (Auto) 75.4 H, Lymph % (Auto) 9.1 L, [place] % (Auto) 11.0 H, Eos % (Auto) 3.5, Baso % (Auto) 0.4, Absolute Neuts (auto) 3.9, Absolute Lymphs (auto) 0.47 L, Nucleated RBC % 0, Platelet Estimate MOD DEC, Hypochromasia RARE, Macrocytosis 1+ 10/11/20 07:54: Sodium 142, Potassium 4.4, Chloride 109 H, Carbon Dioxide 28.0, Anion Gap 5, BUN 97 H, Creatinine 3.17 H, Estim Creat Clear Calc 21.75, Est GFR (MDRD) Af Amer 25 L, Est GFR (MDRD) Non-Af 21 L, BUN/Creatinine Ratio 30.6 H, Glucose 66 L, Calcium 8.7 10/11/20 07:55: POC Glucose 68 L 10/11/20 11:43: POC Glucose Pending Current Medications Acetaminophen (Acetaminophen 325 Mg Tablet) 650 mg PO Q6H PRN PRN PRN Reason: Pain Score 1-10/Temp > 100.7 F Albuterol Sulfate (Albuterol 2.5 Mg/3 Ml Vial.Neb.) 2.5 mg INHALATION Q4H PRN PRN Reason: SOB/WHEEZING Albuterol/Ipratropium (Ipratropium/Albuterol Sulfate 3 Ml Ampul.Neb) 3 ml INHALATION Q6HWA.RT [facility] Last Admin: 10/11/20 07:38 Dose: 3 ml Documented by: Allopurinol ([facility] 100 Mg Tablet) [facility] Admin: 10/11/20 08:08 Dose: 100 mg Documented by: Aspirin (Aspirin 81 Mg Tab.Chew) [facility] Last Admin: 10/11/20 08:07 Dose: 81 mg Documented by: Atorvastatin Calcium (Atorvastatin Calcium 80 Mg Tablet) 80 mg PO [facility] Last Admin: 10/10/20 21:10 Dose: 80 mg Documented by: Betamethasone Valerate (Betamethasone Valerate 0.1% Cream) 1 applic TOPICAL DAILY PRN PRN PRN Reason: DRY SKIN Carvedilol (Carvedilol 25 Mg Tablet) [facility] Last Admin: 10/11/20 08:07 Dose: 50 mg Documented by: Cholecalciferol (Cholecalciferol (Vit D3) 1,000 Unit (25mcg)) 1,000 unit PO SuWeSa@1000 [facility] Last Admin: 10/11/20 08:07 Dose: 1,000 unit Documented by: Clonidine (Clonidine Hcl 0.1 Mg Tablet) 0.3 mg PO BID [facility] Last Admin: 10/11/20 08:08 Dose: 0.3 mg Documented by: Dextrose (Dextrose 50%-Water 25 Gm/50 Ml Disp.Syrin) 0 gm IV X1 PRN; Protocol PRN Reason: Hypoglycemia Fluticasone Propionate (Fluticasone 0.05% 1 [place] Nasal.Sry) 2 spray NASAL DAILY [facility] Last Admin: 10/11/20 08:06 Dose: 2 spray Documented by: Furosemide (Furosemide 40 Mg/4 Ml Vial) 40 mg IV BID@1000,1800 [facility] Last Admin: 10/11/20 08:27 Dose: 40 mg Documented by: Glucagon (Glucagon 1 Mg/Ml Syringe) 1 mg IM .X1 PRN PRN Reason: Hypoglycemia Hydralazine HCl (Hydralazine 25 Mg Tablet) 25 mg PO TID [facility] Last Admin: 10/11/20 06:02 Dose: 25 mg Documented by: Sodium Chloride () 250 mls @ 15 mls/hr IV .[id number] PRN PRN Reason: Saline Flush Sodium Chloride () 250 mls @ 15 mls/hr IV .[id number] PRN PRN Reason: Additional IVPB Infusion Insulin Glargine (Insulin Glargine 100 Units/Ml Pen) 30 units SC DINNER [facility] Last Admin: 10/10/20 17:19 Dose: 30 units Documented by: Insulin Glargine (Insulin Glargine 100 Units/Ml Pen) 40 units SC BREAKFAST [facility] Last Admin: 10/11/20 08:10 Dose: 40 units Documented by: Insulin Human Lispro (Insulin Lispro 100 Unit/Ml Insuln.Pen) 10 unit SC TIDAC [facility] Last Admin: 10/11/20 11:51 Dose: 10 u Documented by: Insulin Human Lispro (Insulin Lispro 100 Unit/Ml Insuln.Pen) 0 unit SC TIDAC [facility]; Protocol Last Admin: 10/11/20 11:51 Dose: 1 unit Documented by: Isosorbide Mononitrate (Isosorbide Mononitrate 120 Mg Tablet) 120 mg PO DAILY [facility] Last Admin: 10/11/20 08:08 Dose: 120 mg Documented by: Linagliptin (Linagliptin 5 Mg Tablet) 5 mg PO DAILY [facility] Last Admin: 10/11/20 08:08 Dose: 5 mg Documented by: Nitroglycerin (Nitroglycerin (Inpatient Use) 0.4 Mg Tab.Subl) 0.4 mg SUBLINGUAL Q5M PRN PRN Reason: CHEST Ondansetron HCl (Ondansetron 4 Mg/2 Ml Vial) 4 mg IV Q8H PRN PRN PRN Reason: NAUSEA/VOMITING Pioglitazone HCl (Pioglitazone Hydrochloride 30 Mg Tablet) 30 mg PO DAILY [facility] Last Admin: 10/11/20 08:06 Dose: 30 mg Documented by: Repaglinide (Repaglinide 2 Mg Tablet) 4 mg PO TIDCM [facility] Last Admin: 10/11/20 11:48 Dose: 4 mg Documented by: Sodium Chloride (0.9% Saline Lock 10 Ml Syringe) 10 - 40 ml IV UD PRN PRN Reason: SALINE FLUSH Last Admin: 10/11/20 08:27 Dose: 20 ml Documented by: Discharge Diet: Low fat/ Low Cholesterol Discharge Activity: Return to Normal Activity Weight Bearing Status: Weight bearing as tolerated Call your doctor if you observe: Shortness of breath, Dizziness, Swelling in the ankles, Increased palpitations (irregular heartbeat) Home Medications: Medications to take at Discharge Aspirin [Aspirin, Baby] 81 mg PO DAILY 03/03/15 Fluticasone 0.05% [Flonase Nasal [place]] 2 spray NASAL DAILY 12/31/15 Insulin Glargine,Hum.rec.anlog [Lantus] 40 unit SQ BREAKFAST 12/31/15 Pioglitazone [Actos] 30 mg PO DAILY 12/31/15 Allopurinol [Zyloprim] 100 mg PO DAILYCM 03/03/19 Carvedilol [Coreg] 50 mg PO BID 03/03/19 Cholecalciferol (VIT D3) [Vitamin D3] 1,000 unit PO SUWESA 03/03/19 Clonidine HCl [Catapres] 0.3 mg PO BID 03/03/19 Insulin Aspart [Novolog Flexpen] 16 units SUBCUT BIDCM 03/03/19 Insulin Glargine,Hum.rec.anlog [Lantus] 30 unit SQ DINNER 03/03/19 Isosorbide Mononitrate [Isosorbide Mononitrate ER] 120 mg PO DAILY 03/03/19 Repaglinide [Prandin] 4 mg PO TID 03/03/19 Umeclidinium Brm/Vilanterol Tr [Anoro Ellipta 62.5-25 Mcg INH] 1 puff IH DAILY 03/03/19 hydrALAZINE [Apresoline] 25 mg PO TID 03/03/19 atorvastatin 80 mg tablet 80 mg PO DAILY #90 tab 04/04/19 Albuterol Inhaler [Ventolin Hfa] 2 puff INHALATION Q6H PRN PRN 04/27/19 Linagliptin [Tradjenta] 5 mg PO DAILY 09/19/20 Nitroglycerin (INPATIENT USE) [Nitrostat] 0.4 mg SUBLINGUAL Q5M PRN 09/19/20 Triamcinolone 0.1% Cream [Kenalog] 1 applic TP DAILY PRN PRN 09/19/20 Torsemide 40 mg PO DAILY #30 tab 10/11/20 Following Prescriptions Were Given to Patient: Torsemide 40 mg PO DAILY #30 tab Transmission Status: Received by [facility] #30 Primary Care Physician: Jean-Claude Garcia MD [Primary Care Provider] - Please follow up with your Primary Care Physician in: 1-2 weeks Please Follow Up With: Vickie Gutierrez DO Patient Instructions: ED Heart Failure, Congestive (CHF) Disposition: Home Minutes spent on discharge:: 40 Patient Condition:: Stable Medical Necessity - Tobacco Use Smoking Status: Former smoker Meaningful Use Info Meaningful Use Diagnoses (Choose all that apply): CHF - CHF YESSY/ARB ordered at discharge?: No Reason YESSY/ARB not ordered?: Worsening renal disease Documented LVEF (%): 65 Inpatient E&M: 58108 Disch Hosp
--- NOTE | 2020-10-13 14:53 | CASEMGMT ---
RN CM Discharge F/U Phone Call LACE: 11 Strata: 3 Discharge date: 10/11/20 Call date: 10/13/20 Call time: 1454 Attempted to reach pt without success at this time, message left for pt to call this RN CM back if/when able. SStaten RN CM Admission dx: CHF exacerbation
== END 2020-10-11 13:45 | disposition home or self-care (01) | DRG 291 ==
LOC: ED 15:32 → PCU 16:00
PROVIDERS: Emergency Provider Emergency Medicine; PCP Family Medicine; Visit Provider Student in an Organized Health Care Education/Training Program
DX: I13.0 Hypertensive heart and chronic kidney disease with heart failure and stage 1 through stage 4 chronic kidney disease, or unspecified chronic kidney disease (principal); I50.33 Acute on chronic diastolic (congestive) heart failure; N18.4 Chronic kidney disease, stage 4 (severe); Z68.42 Body mass index [BMI] 45.0-49.9, adult; E11.22 Type 2 diabetes mellitus with diabetic chronic kidney disease; D63.1 Anemia in chronic kidney disease; Z79.4 Long term (current) use of insulin; Z79.899 Other long term (current) drug therapy; Z87.891 Personal history of nicotine dependence; D69.6 Thrombocytopenia, unspecified; E66.01 Morbid (severe) obesity due to excess calories
CPT/HCPCS: 36415; 71045; 80048; 80053; 82962; 83880; 84484; 85025; 85610; 85730; 93005; 93306; 94640; 97802; 99285; Q9957; A4216; C8929; J1940

== ENCOUNTER → 2020-10-30 09:56 | Outpatient (CLI) | payer MEDICARE, OTHER, SELFPAY ==
[2020-10-09 16:18] VITALS: BMI 49.0
[2020-10-30 13:05] LABS: Albumin, Serum 3.2 g/dL (3.2-5.0); BUN 107 mg/dL (7-18); BUN/Creat Ratio 26.2 RATIO (10-20); Calcium,Total 8.2 mg/dL (8.5-10.1); Chloride 108 mmol/L (98-107); Creatinine, Serum 4.09 mg/dL (0.70-1.30); EST Glomerular Filtration Rate 15 mL/min (>60); Est Glom Filt Rate - Afr Amer 19 mL/min (>60); Glucose 69 mg/dL (74-106); Phosphorus 5.1 mg/dL (2.5-4.9); Potassium 4.6 mmol/L (3.5-5.1); Sodium Level 140 mmol/L (136-145)
== END ==
PROVIDERS: PCP Family Medicine; Visit Provider Internal Medicine Nephrology
DX: N18.4 Chronic kidney disease, stage 4 (severe) (principal)
CPT/HCPCS: 36415; 80069

== ENCOUNTER 2020-11-07 08:41 | Inpatient (IN) | payer MEDICARE, OTHER, SELFPAY ==
[2020-10-09 16:18] VITALS: BMI 49.0
[2020-11-07] VITALS (17 sets, daily range): BP systolic 149–183; BP diastolic 50–72; PULSE 66–73; RESP 17–22; TEMP 36.4–36.8; O2SAT 94–98; BMI 50.4; BMI 49.9
--- NOTE | 2020-11-07 08:52 | EKG12_ITS ---
Test Reason : Blood Pressure : / mmHG Vent. Rate : 066 BPM Atrial Rate : 066 BPM P-R Int : 000 ms QRS Dur : 124 ms QT Int : 438 ms P-R-T Axes : 000 -69 051 degrees QTc Int : 459 ms Sinus Rhythm Left axis deviation Right bundle branch block Abnormal ECG Confirmed by SHADY GARCIA, HAKAN ([id number]), film and video editor JOSEPH ZELAYA ([id number]) on 11/10/2020 2:12:51 PM Referred By: OPAL Confirmed By:HAKAN CARUSO MD
--- NOTE | 2020-11-07 09:06 | RAD_ITS ---
STUDY: X-RAY CHEST REASON FOR EXAM: Male, 70 years old. SOB, HX OF COPD, KIDNEY FAILURE TECHNIQUE: Single AP portable view of the chest. COMPARISON: Comparison is made with prior study dated 10/09/2020. FINDINGS: EKG electrodes are seen. Mild degree of vascular congestion. Blunting of both costophrenic angles. Mild increased markings at the lung bases. There is mild cardiac enlargement. Normal mediastinum and gregg. Normal visualized pulmonary arteries. There is atherosclerotic calcification of the aortic arch with tortuosity. There are diffuse degenerative changes of the visualized thoracic spine. Normal visualized ribs, clavicles, and shoulders. There is no demonstrated abnormality of the visualized soft tissue structures of the upper abdomen. RAD/Chest 1 View (Portable) IMPRESSION: Cardiomegaly. Mild degree of CHF with blunting of both costophrenic angles and mild basilar atelectasis. Electronically Signed: Delvis Chilel MD at 9:32 EST , Service support ,
--- NOTE | 2020-11-07 09:10 | ED.VIS.GEN ---
History of Present Illness Chief Complaint: Shortness of Breath Informant: Patient Narrative: 70-year-old male with history of stage III kidney disease, CHF, COPD presenting with shortness of breath since this morning. Patient does note that he has had some weight gain and lower extremity swelling. Patient chronic dry cough which he states is unchanged. No fevers, myalgias, change in taste or smell. He denies chest pain. He does state that his breathing is worse with ambulation. He states he can hardly get around. He does not wear home O2 at baseline. He states that when he arrived to the ED he was 80% on room air. - Past Medical History (1) Chronic diastolic (congestive) heart failure Status: Chronic (2) Chronic kidney disease (CKD) Status: Chronic (3) Anemia Status: Chronic (4) Thrombocytopenia Status: Chronic (5) Diabetes mellitus, type II Status: Chronic Past Medical History - Allergies and Home Meds Allergies/Adverse Reactions: Allergies ARB-Angiotensin Receptor Antagonist Allergy (Verified 11/07/20 10:24) WORSENS RENAL FUNCTION WORSENS RENAL FUNCTION amoxicillin Adverse Reaction (Verified 11/07/20 10:24) Upset Stomach Primary Care Physician: Jean-Claude Garcia MD [Primary Care Provider] - Prior records reviewed: Yes Past Medical History: - - Reviewed in problem list Surgical History: cataract, - - AVF left radiocephalic, nasal cyst removal. Lives: Alone Smoking Status: Former smoker Alcohol: None Drugs: None - Family History Sibling Family History: Family History (Last Reviewed 10/09/20 @ 15:[address] Destin Cain DO) Other Diabetes Heart disease Hypertension Family History: Reports: Heart Disease Paternal Family History: Family History (Last Reviewed 10/09/20 @ 15:[address] Destin Cain DO) Other Diabetes Heart disease Hypertension Family History: Reports: Cancer - Other with a history of possibly lymphoma., Diabetes Maternal Family History: Family History (Last Reviewed 10/09/20 @ 15:[address] Destin Cain DO) Other Diabetes Heart disease Hypertension Family History: Reports: Diabetes, Heart Disease, Hypertension Review of Systems General: Denies: Chills, Fever, Sweats Eyes: Denies: Visual changes - bilaterally, Diplopia ENT: Denies: Rhinorrhea, Sore throat Cardiovascular: Denies: Chest pain, Palpitations Respiratory: Reports: Dyspnea, Cough, Dyspnea on exertion Genitourinary: Denies: Dysuria, Hematuria, Frequency Musculoskeletal: Denies: Back pain, Extremity Pain Skin: Denies: Rash, Wounds Neurological: Denies: Headache, Weakness, Numbness Psych: Denies: Depression, Anxiety Physical Exam Vital Signs/Narrative: Vital Signs Temp Pulse Resp BP Pulse Ox 11/07/20 08:45 98.2 F 66 18 171/67 H 98 11/07/20 08:42 98.2 F 66 18 171/67 H 98 General: Obese, No Acute Distress Head: Normocephalic, Atraumatic Eyes: Perrl, EOMI ENT: Moist mucous membranes, No rhinorrhea Cardiovascular: Regular rate, Regular rhythm Respiratory: No distress, Diminished - Bilateral bases Abdomen: Soft, Nontender Back: Nontender, Normal Inspection Extremities: Edema. Negative for: Tenderness Skin: Normal color, No rash Neurological: Alert, Oriented x3, Cranial nerves II-XII grossly intact Psychological: Normal affect, Normal Mood Diagnostic/Tx/Re-eval Clinical Impression(s) from Imaging Studies Chest X-Ray 11/07/20 09:06 IMPRESSION: Cardiomegaly. Mild degree of CHF with blunting of both costophrenic angles and mild basilar atelectasis. Electronically Signed: Delvis Chilel MD at 9:32 EST , Service support , Laboratory Data 11/07/20 11/07/20 11/07/20 09:30 09:30 09:30 WBC 6.9 RBC 3.21 L Hgb 10.2 L Hct 32.9 L MCV 102.5 H MCH 31.8 MCHC 31.0 L RDW Std Deviation 61.1 H RDW Coeff of Gina 16.6 H Plt Count 76 L MPV 11.1 Immature Gran % (Auto) 0.400 Neut % (Auto) 86.8 H Lymph % (Auto) 3.3 L [place] % (Auto) 7.8 Eos % (Auto) 1.6 Baso % (Auto) 0.1 Absolute Neuts (auto) 6.0 Absolute Lymphs (auto) 0.23 L Nucleated RBC % 0 Platelet Estimate SLT DEC Sodium 141 Potassium 4.5 Chloride 111 H Carbon Dioxide 25.0 Anion Gap 5 BUN 105 H* Creatinine 3.33 H Estim Creat Clear Calc 20.70 Est GFR (MDRD) Af Amer 24 L Est GFR (MDRD) Non-Af 20 L BUN/Creatinine Ratio 31.5 H Glucose 68 L Calcium 8.9 Total Bilirubin 0.80 AST 18 ALT 28 Alkaline Phosphatase 55 Troponin I 0.018 B-Natriuretic Peptide 434.3 H Total Protein 7.1 Albumin 3.6 Globulin 3.5 Albumin/Globulin Ratio 1.0 - Rhythm Strip Rhythm Strip: Sinus Rhythm Rate: 66 - EKG Initial EKG Interpretation: Sinus Rhythm, No Acute Injury Pattern - Medical Decision Making 70-year-old male presenting with shortness of breath and hypoxia. Patient denies any chest pain. On arrival he was put on liters nasal cannulas and maintaining his O2 saturations at about 95%. EKG performed on arrival shows a sinus rhythm without any signs of ischemic change. Chest x-ray is interpreted by myself shows cardiomegaly and pulmonary vascular congestion consistent with CHF. Radiology does agree. Patient's blood work otherwise appears to be at baseline with exception of his BNP which is elevated. Troponin is negative. Patient was discussed with hospitalist who will admit the patient for hypoxic respiratory failure and CHF. Patient given 40 mg of Lasix IV prior to admission. Impression: 1. CHF 2. Hypoxic respiratory failure ED Disposition - Plan for ED Patient: Referrals: Jean-Claude Garcia MD [Primary Care Provider] -
[2020-11-07 09:38] LABS: Absolute Lymphocyte Count 0.23 X10^3/uL (0.83-4.51); Basophil# 0.01 X10^3/uL; Basophil% 0.1 % (0-1); Eosinophil# 0.11 X10^3/uL; Eosinophils% 1.6 % (0-5); Hematocrit 32.9 % (40-54); Hemoglobin 10.2 g/dL (13.0-16.5); Lymphocyte # 0.23 X10^3/ul (4.0); Lymphocyte % 3.3 % (19-41); Mean Corpuscular Hgb 31.8 pg (27.0-32.0); Mean Corpuscular Volume 102.5 fL (80-94); Mean Platelet Vol. 11.1 fl (6.2-12.0); Monocyte# 0.54 X10^3/uL; Monocyte% 7.8 % (0-10); NRBC Flagged by Analyzer 0 % (0-5); Neutrophil # 5.96 X10^3/uL (2.7-7.7); Neutrophil % 86.8 % (47-70); POSITIVE COUNT YES; POSITIVE DIFFERENTIAL YES; Platelet Count 76 K/mm3 (150-450); RBC Distribution Width CV 16.6 % (11.6-14.6); RBC Distribution Width SD 61.1 fl (35.1-43.9); Red Blood Count 3.21 M/mm3 (4.6-6.2); White Blood Count 6.9 K/mm3 (4.4-11.0)
[2020-11-07 09:42] LABS: Differential Indicated SCAN CRITERIA MET
[2020-11-07 09:59] LABS: AST(SGOT) 18 U/L (15-37); Alanine Aminotransfer ALT/SGPT 28 U/L (16-61); Albumin, Serum 3.6 g/dL (3.2-5.0); Alkaline Phosphatase 55 U/L (45-117); Anion Gap 5 (5-15); BUN 105 mg/dL (7-18); BUN/Creat Ratio 31.5 RATIO (10-20); Calcium,Total 8.9 mg/dL (8.5-10.1); Chloride 111 mmol/L (98-107); Creatinine, Serum 3.33 mg/dL (0.70-1.30); EST Glomerular Filtration Rate 20 mL/min (>60); Est Glom Filt Rate - Afr Amer 24 mL/min (>60); Globulin 3.5 g/dL (2.2-4.2); Glucose 68 mg/dL (74-106); Potassium 4.5 mmol/L (3.5-5.1); Protein, Total 7.1 g/dL (6.4-8.2); Sodium Level 141 mmol/L (136-145)
[2020-11-07 10:01] LABS: BNP,B-Type NATRIURETIC PEPTIDE 434.3 pg/mL (0-100)
[2020-11-07 10:09] LABS: Platelet Estimate SLT DEC (ADEQ)
[2020-11-07] MEDS: Furosemide 40 MG/4 ML Vial IV (10:48)
--- NOTE | 2020-11-07 11:41 | CASEMGMT ---
Readmission chart review: Pt was admitted 09/19-09/22/20 for DEVAN on CKD on MS3. See readmit note from 10/10/20 by this RN CM. Pt returned to [facility] ED on 11/07/20 for increasing SOB, hx COPD, kidney failure. Pt states is not on home oxygen and initial sat per ED physician note was 80%. Pt c/o increased swelling/SOB and states SOB worsened with exertion. Pt was admitted to PCU for Pulmonary HTN w/ hypoxia. Pt is currently 95% on 4liters at this time. SW did discuss palliative and pamphlet was given during last visit but pt did not want referral sent at that time. Pt's BNPt is 434.3 at this time. CM to follow for any further discharge planning/needs. SStlashae RN CM
[2020-11-07 12:30] LABS: Bedside Glucose 65 mg/dL (70-110)
--- NOTE | 2020-11-07 12:48 | PCM.HP.STD ---
History of Present Illness Date of Admission: 11/07/20 Chief Complaint: SOB and RODRIGUEZ The patient is a 70 year old M with a PMH as below who presents to the hospital with increasing shortness of breath which started this morning. He has had significant weight gain as well as lower extremity swelling. No fevers or chills, or signs of any Covid infection. Denies any chest pain or lightheadedness. He does have worsening shortness of breath on ambulation. In the ED he was found to be 80% on room air and started on oxygen via nasal cannula and was maintaining his oxygen sats on 4 L, chest x-ray demonstrated mild degree of CHF. He does have chronic kidney disease and his creatinine is currently at baseline at 3.3 BUN is also around his baseline at 105. BNP is elevated however he does have chronic kidney disease therefore nondiagnostic. He states that he followed up with his vascular surgeon who is thinks that his fistula she should be okay to use for dialysis if/when necessary. Past Medical History Past Medical History (Chronic Problems): Chronic Problems (Last Reviewed 10/09/20 @ 15:[address] Destin Cain DO) Chronic diastolic (congestive) heart failure (Chronic) Chronic kidney disease (CKD) (Chronic) Morbid obesity (Chronic) Anemia (Chronic) Renal failure (Chronic) Thrombocytopenia (Chronic) Diabetes mellitus, type II (Chronic) IMAN (obstructive sleep apnea) (Chronic) Chronic diastolic (congestive) heart failure (Chronic) Secondary pulmonary arterial hypertension (Chronic) Right bundle branch block (RBBB) (Chronic) Essential (primary) hypertension (Chronic) Hyperlipidemia (Chronic) Lymphedema of both lower extremities (Chronic) Medical History: Medical History (Last Reviewed 10/09/20 @ 15:[address] Destin Cain DO) Chronic diastolic (congestive) heart failure (Chronic) I50.32 Secondary pulmonary arterial hypertension (Chronic) I27.21 Right bundle branch block (RBBB) (Chronic) I45.10 Essential (primary) hypertension (Chronic) I10 Hyperlipidemia (Chronic) E78.5 Lymphedema of both lower extremities (Chronic) I89.0 BMI 33.0-33.9,adult Z68.33 Non-pressure ulcer of right lower extremity with fat layer exposed L97.912 Traumatic open wound of right lower leg with delayed healing S81.801D Type 2 diabetes mellitus E11.9 DEVAN (acute kidney injury) (Resolved) N17.9 Gastrointestinal bleed K92.2 Syncope and collapse R55 CKD (chronic kidney disease), stage III N18.3 Traumatic open wound of right lower leg (Inactive) S81.801A Wound of right leg (Inactive) S81.801A Allergies ARB-Angiotensin Receptor Antagonist Allergy (Verified 11/07/20 10:24) WORSENS RENAL FUNCTION WORSENS RENAL FUNCTION amoxicillin Adverse Reaction (Verified 11/07/20 10:24) Upset Stomach Home Medications: Ambulatory Orders Medication Instructions Recorded Aspirin [Aspirin, Baby] 81 mg PO DAILY 03/03/15 Fluticasone 0.05% [Flonase Nasal 2 spray NASAL DAILY 12/31/15 [place]] Insulin Glargine,Hum.rec.anlog 40 unit SQ BREAKFAST 12/31/15 [Lantus] Pioglitazone [Actos] 30 mg PO DAILY 12/31/15 Allopurinol [Zyloprim] 100 mg PO DAILYCM 03/03/19 Carvedilol [Coreg] 50 mg PO BID 03/03/19 Cholecalciferol (VIT D3) [Vitamin 1,000 unit PO SUWESA 03/03/19 D3] Clonidine HCl [Catapres] 0.3 mg PO BID 03/03/19 Insulin Aspart [Novolog Flexpen] 16 units SUBCUT BIDCM 03/03/19 Insulin Glargine,Hum.rec.anlog 30 unit SQ DINNER 03/03/19 [Lantus] Isosorbide Mononitrate [Isosorbide 120 mg PO DAILY 03/03/19 Mononitrate ER] Repaglinide [Prandin] 4 mg PO TID 03/03/19 Umeclidinium Brm/Vilanterol Tr 1 puff IH DAILY 03/03/19 [Anoro Ellipta 62.5-25 Mcg INH] hydrALAZINE [Apresoline] 25 mg PO TID 03/03/19 atorvastatin 80 mg tablet 80 mg PO QHS #90 tab 04/04/19 Albuterol Inhaler [Ventolin Hfa] 2 puff INHALATION Q6H PRN PRN 04/27/19 Linagliptin [Tradjenta] 5 mg PO DAILY 09/19/20 Nitroglycerin (INPATIENT USE) 0.4 mg SUBLINGUAL Q5M PRN 09/19/20 [Nitrostat] Triamcinolone 0.1% Cream [Kenalog] 1 applic TP DAILY PRN PRN 09/19/20 Nystatin Powder [Mycostatin Powder] 1 applicatio TOPICAL 4X/DAY 11/07/20 Nystatin/Triamcin Oint [Mycolog] 1 applicatio TOPICAL BID 11/07/20 Torsemide 20 mg PO DAILY 11/07/20 Surgical History: Surgical History (Last Reviewed 10/09/20 @ 15:[address] Destin Cain DO) A-V fistula Onset Date: 05/09/20 I77.0 LUE History of cataract surgery Z98.49 Surgical History: cataract, - - AVF left radiocephalic, nasal cyst removal. Psychiatric History: No pertinent psych hx Lives: Alone Smoking Status: Former smoker Tobacco Use: Cigarettes Alcohol: None Drugs: None - *Family History Sibling Family History: Family History (Last Reviewed 10/09/20 @ 15:[address] Destin Cain DO) Other Diabetes Heart disease Hypertension History Items: Heart Disease Paternal Family History: Family History (Last Reviewed 10/09/20 @ 15:[address] Destin Cain DO) Other Diabetes Heart disease Hypertension History Items: Cancer - Other with a history of possibly lymphoma., Diabetes Maternal Family History: Family History (Last Reviewed 10/09/20 @ 15:[address] Destin Cain DO) Other Diabetes Heart disease Hypertension History Items: Diabetes, Heart Disease, Hypertension Review of Systems Constitutional: Denies: Chills, Fever, Weight Change HEENT: Denies: Head Aches, Sinus Congestion, Sinus Drainage Cardiovascular: Reports: Edema. Denies: Chest Pain, Palpitations Respiratory: Reports: Shortness of Breath, Shortness of breath upon exertion. Denies: Cough, Shortness of breath at rest, Sputum production Gastrointestinal: Denies: Abdominal Pain, Nausea, Vomiting Genitourinary: Denies: Dysuria Musculoskeletal: Denies: Joint Pain, Joint Tenderness Skin: Denies: Rash, Wounds Neurological: Denies: Numbness, Tingling, Focal weakness Psychiatric: Denies: Anxiety, Depression, Homicidal Ideations, Suicidal Ideations Hematologic/ Lymphatic: Denies: Easy Bruising, Easy Bleeding VTE Information - Inpt Only VTE Present on Admission: No - Physical Exam Vitals/I&O's: Vital Signs Temp Pulse Resp BP Pulse Ox 97.6 F L 73 20 H 183/72 H 94 11/07/20 11:54 11/07/20 11:54 11/07/20 11:54 11/07/20 11:54 11/07/20 11:54 Oxygen Flow Rate (L/min) 4 Oxygen Delivery Method Nasal Cannula Weight: 348 lb Body Mass Index (BMI) 49.9 Finger Stick Blood Glucose 131 General: Alert, Oriented x3, Cooperative, No apparent distress HEENT: Atraumatic, PERRLA, EOMI, Normocephalic Oral: Moist Mucosa Neck: Supple, No JVD Lungs: Normal air movement, No rhonchi, No wheeze, No rales, Diminished Cardiovascular: Regular rate, Regular Rhythm, Normal S1, Normal S2, No murmurs Abdomen: Soft, Non Tender, Non-Distended, No Hepato-splenomegaly, Obese Extremities: Capillary Refill Less than 3 Seconds, Edema - Bilateral chronic lymphedema, currently Rcikey wrapped Skin: No rashes, No breakdown Neurological: Neuro grossly intact, Sensory exam intact to light touch and pain Psych/Mental Status: Normal Affect, Appropriate Microbiology Past 72 Hours 11/07/20 09:55 Mucosa - Nose SARS-CoV-2 Antigen (Rapid) - Final Laboratory Results 11/07/20 09:30: WBC 6.9, RBC 3.21 L, Hgb 10.2 L, Hct 32.9 L, MCV 102.5 H, MCH 31.8, MCHC 31.0 L, RDW Std Deviation 61.1 H, RDW Coeff of Gina 16.6 H, Plt Count 76 L, MPV 11.1, Immature Gran % (Auto) 0.400, Neut % (Auto) 86.8 H, Lymph % (Auto) 3.3 L, Sanders % (Auto) 7.8, Eos % (Auto) 1.6, Baso % (Auto) 0.1, Absolute Neuts (auto) 6.0, Absolute Lymphs (auto) 0.23 L, Nucleated RBC % 0, Platelet Estimate SLT 11/07/20 09:30: Sodium 141, Potassium 4.5, Chloride 111 H, Carbon Dioxide 25.0, Anion Gap 5, BUN 105 H*, Creatinine 3.33 H, Estim Creat Clear Calc 20.70, Est GFR (MDRD) Af Amer 24 L, Est GFR (MDRD) Non-Af 20 L, BUN/Creatinine Ratio 31.5 H, Glucose 68 L, Calcium 8.9, Total Bilirubin 0.80, AST 18, ALT 28, Alkaline Phosphatase 55, Troponin I 0.018, Total Protein 7.1, Albumin 3.6, Globulin 3.5, Albumin/Globulin Ratio 1.0 11/07/20 09:30: B-Natriuretic Peptide 434.3 H 11/07/20 12:23: POC Glucose 65 L Current Medications Dextrose (Dextrose 50%-Water 25 Gm/50 Ml Disp.Syrin) 0 gm IV X1 PRN; Protocol PRN Reason: Hypoglycemia Furosemide (Furosemide 100 Mg/10 Ml Vial) 80 mg IV BID@1000,1800 FARIDEH Glucagon (Glucagon 1 Mg/Ml Syringe) 1 mg IM .X1 PRN PRN Reason: Hypoglycemia Heparin Sodium (Porcine) (Heparin Injection (Vial) 5,000 Unit/Ml Vial) 5,000 unit SC Q8 FARIDEH Sodium Chloride () 250 mls @ 15 mls/hr IV .[id number] PRN PRN Reason: Saline Flush Sodium Chloride () 250 mls @ 15 mls/hr IV .[id number] PRN PRN Reason: Additional IVPB Infusion Insulin Glargine (Insulin Glargine 100 Units/Ml Pen) 40 units SC BREAKFAST FARIDEH Insulin Glargine (Insulin Glargine 100 Units/Ml Pen) 40 units SC DINNER [facility] Insulin Human Lispro (Insulin Lispro 100 Unit/Ml Insuln.Pen) 5 unit SC BREAKFAST FARIDEH Insulin Human Lispro (Insulin Lispro 100 Unit/Ml Insuln.Pen) 5 unit SC DINNER [facility] Insulin Human Lispro (Insulin Lispro 100 Unit/Ml Insuln.Pen) 5 unit SC LUNCH [facility] Last Admin: 11/07/20 12:36 Dose: Not Given Documented by: Insulin Human Lispro (Insulin Lispro 100 Unit/Ml Insuln.Pen) 0 unit SC ACHS [facility]; Protocol Last Admin: 11/07/20 12:36 Dose: Not Given Documented by: Melatonin (Melatonin 3 Mg Tablet) 3 mg PO QHS PRN PRN PRN Reason: INSOMNIA Ondansetron HCl (Ondansetron 4 Mg/2 Ml Vial) 4 mg IV Q8H PRN PRN PRN Reason: NAUSEA/VOMITING Sodium Chloride (0.9% Saline Lock 10 Ml Syringe) 10 - 40 ml IV UD PRN PRN Reason: SALINE FLUSH Assessment/Plan All Active Problems (Last Reviewed 10/09/20 @ 15:[address] Destin Cain DO) (HFpEF) heart failure with preserved ejection fraction (Acute) DEVAN (acute kidney injury) (Resolved) 1. Acute hypoxic respiratory failure secondary to acute on chronic diastolic CHF with pulmonary hypertension/HTN/HLD/Chronic bilateral lower extremity lymphedema -He had an echo on 10/09/2020 with an EF of 65%, diastolic dysfunction as well as an RVSP of 63 mmHg -We will transition him to IV Lasix 80 mg twice daily -We will continue with his home blood pressure and cholesterol medications -Continue with aspirin 2. DM 2/morbid obesity -BMI of 49.9, discussed with him lifestyle modifications -We will hold his home Tradjenta, Actos, Prandin and place him on Lantus as well as mealtime insulin and a sliding scale insulin -Accu-Cheks AC at bedtime 3. CKD 4/chronic anemia both of chronic disease and iron deficiency/chronic thrombocytopenia -We will continue to monitor his renal function he did have a fistula placed in May 2020 at that time it was felt that it had matured however he did follow-up with his vascular surgeon and states that he was told it should be okay to be used for dialysis -He is given epoetin is an outpatient by hematology who is also managing his chronic thrombocytopenia -We will consult his derrickman helper for evaluation and see if she would like to initiate dialysis or not. 4. COPD/IMAN -Does not have an exacerbation -We will place him on duo nebs as needed 5. Gout -Stable -continue with allopurinol DVT: Heparin Inpatient E&M: 20669 Init Hosp L3
[2020-11-07] MEDS: Heparin Injection (Vial) 5,000 UNIT/ML VIAL 5000 UNIT SC ×2 (13:46→21:30)
[2020-11-07] MEDS: hydrALAZINE 25 MG Tablet PO ×2 (15:38→21:30)
[2020-11-07] MEDS: Nystatin Powder 15gm Bottle 1 APPLIC TOPICAL ×2 (15:38→21:31)
[2020-11-07 16:46] LABS: Bedside Glucose 112 mg/dL (70-110)
[2020-11-07] MEDS: Furosemide 100 MG/10 ML Vial 80 MG IV (17:27)
[2020-11-07] MEDS: Carvedilol 25 MG Tablet 50 MG PO (17:27)
[2020-11-07] MEDS: 0.9% Saline Lock 10 ML Syringe IV (17:27)
[2020-11-07] MEDS: cloNIDine HCl 0.1 MG Tablet 0.3 MG PO (21:29)
[2020-11-07] MEDS: Atorvastatin Calcium 80 MG Tablet PO (21:30)
[2020-11-07] MEDS: Acetaminophen 325 MG Tablet 650 MG PO (21:31)
[2020-11-07 22:01] LABS: Bedside Glucose 138 mg/dL (70-110)
[2020-11-08] VITALS (9 sets, daily range): BP systolic 144–170; BP diastolic 57–85; PULSE 62–77; RESP 18–19; TEMP 36.6–37.1; O2SAT 94–97
[2020-11-08] MEDS: hydrALAZINE 25 MG Tablet PO ×3 (06:15→22:08)
[2020-11-08] MEDS: Heparin Injection (Vial) 5,000 UNIT/ML VIAL 5000 UNIT SC ×3 (06:15→22:07)
[2020-11-08] MEDS: Nystatin Powder 15gm Bottle 1 APPLIC TOPICAL ×3 (06:16→22:10)
[2020-11-08 06:46] LABS: Bedside Glucose 105 mg/dL (70-110)
[2020-11-08 07:54] LABS: Absolute Lymphocyte Count 0.24 X10^3/uL (0.83-4.51); Absolute Neutrophil Count 6.4 X10^3/uL (2.0-7.7); Basophil# 0.02 X10^3/uL; Basophil% 0.3 % (0-1); Eosinophils% 1.3 % (0-5); Hematocrit 32.1 % (40-54); Hemoglobin 9.7 g/dL (13.0-16.5); Lymphocyte # 0.24 X10^3/ul (4.0); Lymphocyte % 3.2 % (19-41); Mean Corp Hgb Conc 30.2 g/dL (32-36); Mean Corpuscular Hgb 31.5 pg (27.0-32.0); Mean Corpuscular Volume 104.2 fL (80-94); Mean Platelet Vol. 11.4 fl (6.2-12.0); Monocyte# 0.64 X10^3/uL; Monocyte% 8.6 % (0-10); NRBC Flagged by Analyzer 0 % (0-5); Neutrophil # 6.43 X10^3/uL (2.7-7.7); Neutrophil % 86.3 % (47-70); POSITIVE COUNT YES; POSITIVE DIFFERENTIAL YES; Platelet Count 80 K/mm3 (150-450); RBC Distribution Width CV 16.9 % (11.6-14.6); RBC Distribution Width SD 64.5 fl (35.1-43.9); Red Blood Count 3.08 M/mm3 (4.6-6.2); White Blood Count 7.5 K/mm3 (4.4-11.0)
[2020-11-08 08:03] LABS: Differential Indicated SCAN CRITERIA MET
[2020-11-08 08:24] LABS: Anion Gap 8 (5-15); BUN 110 mg/dL (7-18); BUN/Creat Ratio 36.9 RATIO (10-20); Calcium,Total 8.8 mg/dL (8.5-10.1); Chloride 110 mmol/L (98-107); Creatinine, Serum 2.98 mg/dL (0.70-1.30); EST Glomerular Filtration Rate 22 mL/min (>60); Est Glom Filt Rate - Afr Amer 27 mL/min (>60); Estimated Creatinine Clearance 23.14 ml/min; Glucose 105 mg/dL (74-106); Potassium 4.7 mmol/L (3.5-5.1); Sodium Level 141 mmol/L (136-145)
[2020-11-08 08:33] LABS: Anisocytosis 1+
--- NOTE | 2020-11-08 08:36 | PCM.PN.BLA ---
Progress Note 70 y/o morbidly obese M with CKD stage 4 with acute on CKD episodes from prerenal event admitted for SOB, hypoxia. He was placed on iv lasix on admit. He has chronic leg swelling on diuretic therapy. He has IMAN on CPAP, hypoventilatory state. He does not wear oxygen at home during the daytime. Renal function currently at baseline. Last 24h urine CRCL 40cc/min in September 2020. Creatinine at baseline 3.3 eGFR 20cc/min on admit. Oxygenation currently stable on O2 via NC. He has an AVF that requires further revision. Discussed with his vascular surgeon that the length is too short and would would require resurfacing of fistula according to his surgeon. He was recently seen in my office on 10/30/20. VSS, AF labs reviewed. A/P 1. CKD stage 3-4. Renal fxn at baseline. will continue with iv lasix. No need to start dialysis. AVF will require further revision to help improve maturation 2. Repeat 24h urine CRCL 3. Morbid obesity/hypoventilatory state. Will likely require home O2 4. DM2 stable 5. HTN resume home meds 6. Dependent chronic BLE edema. Discussed with hospitalist STROKE Vital Signs/Narrative: Vital Signs Pulse BP 11/08/20 06:15 77 155/75 H
[2020-11-08] MEDS: Carvedilol 25 MG Tablet 50 MG PO ×2 (09:17→17:16)
[2020-11-08] MEDS: Allopurinol 100 MG Tablet PO (09:19)
[2020-11-08] MEDS: Fluticasone 0.05% 1 SPRAY NASAL.SRY 2 SPRAY NASAL (09:19)
[2020-11-08] MEDS: cloNIDine HCl 0.1 MG Tablet 0.3 MG PO ×2 (09:19→22:08)
[2020-11-08] MEDS: Furosemide 100 MG/10 ML Vial 80 MG IV ×2 (09:20→17:17)
--- NOTE | 2020-11-08 11:40 | PCM.PN.HOSP ---
Subjective: Breathing little bit easier today, on 2 L nasal cannula. Feels like she would be capable of taking care of himself at home and he says that he is extremely anxious. Vitals/I&O's: Vital Signs Temp Pulse Resp BP Pulse Ox 98.1 F 71 18 170/65 H 95 11/08/20 09:09 11/08/20 09:09 11/08/20 09:09 11/08/20 09:09 11/08/20 09:09 Oxygen Flow Rate (L/min) 2 Oxygen Delivery Method Nasal Cannula Weight: 344 lb 5.793 oz Body Mass Index (BMI) 49.9 Finger Stick Blood Glucose 131 Intake and Output for Last 24 Hours 11/06/20 11/07/20 11/08/20 23:59 23:59 23:59 Intake Total 360 / 360 120 / 120 Output Total 100 / 100 1000 / 1000 Balance 260 / 260 -880 / -880 General: Alert, Oriented x3, Cooperative, No apparent distress HEENT: Atraumatic, PERRLA, EOMI, Normocephalic Oral: Moist Mucosa Neck: Supple, No JVD Lungs: Normal air movement, No rhonchi, No wheeze, No rales, Diminished Cardiovascular: Regular rate, Regular Rhythm, Normal S1, Normal S2, No murmurs Abdomen: Soft, Non Tender, Non-Distended, No Hepato-splenomegaly, Obese Extremities: Capillary Refill Less than 3 Seconds, Edema - Bilateral chronic lymphedema, currently Rickey wrapped Skin: No rashes, No breakdown Neurological: Neuro grossly intact, Sensory exam intact to light touch and pain Psych/Mental Status: Normal Affect, Appropriate Microbiology Past 72 Hours 11/07/20 09:55 Mucosa - Nose SARS-CoV-2 Antigen (Rapid) - Final Laboratory Results 11/07/20 12:23: POC Glucose 65 L 11/07/20 16:39: POC Glucose 112 H 11/07/20 21:39: POC Glucose 138 H 11/08/20 06:35: POC Glucose 105 11/08/20 06:39: WBC 7.5, RBC 3.08 L, Hgb 9.7 L, Hct 32.1 L, MCV 104.2 H, MCH 31.5, MCHC 30.2 L, RDW Std Deviation 64.5 H, RDW Coeff of Gina 16.9 H, Plt Count 80 L, MPV 11.4, Immature Gran % (Auto) 0.300, Neut % (Auto) 86.3 H, Lymph % (Auto) 3.2 L, Harris % (Auto) 8.6, Eos % (Auto) 1.3, Baso % (Auto) 0.3, Absolute Neuts (auto) 6.4, Absolute Lymphs (auto) 0.24 L, Nucleated RBC % 0, Anisocytosis 1+ 11/08/20 06:39: Sodium 141, Potassium 4.7, Chloride 110 H, Carbon Dioxide 23.0, Anion Gap 8, BUN 110 H*, Creatinine 2.98 H, Estim Creat Clear Calc 23.14, Est GFR (MDRD) Af Amer 27 L, Est GFR (MDRD) Non-Af 22 L, BUN/Creatinine Ratio 36.9 H, Glucose 105, Calcium 8.8 Current Medications Acetaminophen (Acetaminophen 325 Mg Tablet) 650 mg PO Q6H PRN PRN PRN Reason: Pain Score 1-10 Last Admin: 11/07/20 21:31 Dose: 650 mg Documented by: Albuterol/Ipratropium (Ipratropium/Albuterol Sulfate 3 Ml Ampul.Neb) 3 ml INHALATION Q4HWA.RT PRN PRN Reason: SOB/Wheeze Allopurinol (Allop[facility]ol 100 Mg Tablet) [facility] Last Admin: 11/08/20 09:19 Dose: 100 mg Documented by: Atorvastatin Calcium (Atorvastatin Calcium 80 Mg Tablet) 80 mg PO QHS [facility] Last Admin: 11/07/20 21:30 Dose: 80 mg Documented by: Carvedilol (Carvedilol 25 Mg Tablet) [facility] Last Admin: 11/08/20 09:17 Dose: 50 mg Documented by: Cholecalciferol (Cholecalciferol (Vit D3) 1,000 Unit (25mcg)) 1,000 unit PO SuWeSa@1000 [facility] Last Admin: 11/08/20 09:20 Dose: 1,000 unit Documented by: Clonidine (Clonidine Hcl 0.1 Mg Tablet) 0.3 mg PO BID [facility] Last Admin: 11/08/20 09:19 Dose: 0.3 mg Documented by: Dextrose (Dextrose 50%-Water 25 Gm/50 Ml Disp.Syrin) 0 gm IV X1 PRN; Protocol PRN Reason: Hypoglycemia Fluticasone Propionate (Fluticasone 0.05% 1 [place] Nasal.Sry) 2 spray NASAL DAILY [facility] Last Admin: 11/08/20 09:19 Dose: 2 spray Documented by: Furosemide (Furosemide 100 Mg/10 Ml Vial) 80 mg IV BID@1000,1800 [facility] Last Admin: 11/08/20 09:20 Dose: 80 mg Documented by: Glucagon (Glucagon 1 Mg/Ml Syringe) 1 mg IM .X1 PRN PRN Reason: Hypoglycemia Heparin Sodium (Porcine) (Heparin Injection (Vial) 5,000 Unit/Ml Vial) 5,000 unit SC Q8 [facility] Last Admin: 11/08/20 06:15 Dose: 5,000 unit Documented by: Hydralazine HCl (Hydralazine 25 Mg Tablet) 25 mg PO TID [facility] Last Admin: 11/08/20 06:15 Dose: 25 mg Documented by: Sodium Chloride () 250 mls @ 15 mls/hr IV .[id number] PRN PRN Reason: Saline Flush Sodium Chloride () 250 mls @ 15 mls/hr IV .[id number] PRN PRN Reason: Additional IVPB Infusion Insulin Glargine (Insulin Glargine 100 Units/Ml Pen) 40 units SC BREAKFAST [facility] Last Admin: 11/08/20 09:17 Dose: 40 units Documented by: Insulin Glargine (Insulin Glargine 100 Units/Ml Pen) 40 units SC DINNER [facility] Last Admin: 11/07/20 16:49 Dose: Not Given Documented by: Insulin Human Lispro (Insulin Lispro 100 Unit/Ml Insuln.Pen) 5 unit SC BREAKFAST [facility] Last Admin: 11/08/20 09:15 Dose: Not Given Documented by: Insulin Human Lispro (Insulin Lispro 100 Unit/Ml Insuln.Pen) 5 unit SC DINNER [facility] Last Admin: 11/07/20 16:49 Dose: Not Given Documented by: Insulin Human Lispro (Insulin Lispro 100 Unit/Ml Insuln.Pen) 5 unit SC LUNCH [facility] Last Admin: 11/07/20 12:36 Dose: Not Given Documented by: Insulin Human Lispro (Insulin Lispro 100 Unit/Ml Insuln.Pen) 0 unit SC ACHS [facility]; Protocol Last Admin: 11/08/20 06:40 Dose: Not Given Documented by: Isosorbide Mononitrate (Isosorbide Mononitrate 120 Mg Tablet) 120 mg PO DAILY [facility] Last Admin: 11/08/20 09:20 Dose: 120 mg Documented by: Melatonin (Melatonin 3 Mg Tablet) 3 mg PO QHS PRN PRN PRN Reason: INSOMNIA Nystatin (Nystatin Powder 15gm Bottle) 1 applic TOPICAL TID [facility]; Protocol Last Admin: 11/08/20 06:16 Dose: 1 applicatio Documented by: Ondansetron HCl (Ondansetron 4 Mg/2 Ml Vial) 4 mg IV Q8H PRN PRN PRN Reason: NAUSEA/VOMITING Sodium Chloride (0.9% Saline Lock 10 Ml Syringe) 10 - 40 ml IV UD PRN PRN Reason: SALINE FLUSH Last Admin: 11/07/20 17:27 Dose: 10 ml Documented by: Tamsulosin HCl (Tamsulosin Hcl 0.4 Mg Capsule) 0.4 mg PO DAILY@1730 [facility] [place] Vital Signs/Narrative: Vital Signs Temp Pulse Resp BP Pulse Ox 11/08/20 09:09 98.1 F 71 18 170/65 H 95 Medical Necessity - Tobacco Use Smoking Status: Former smoker Tobacco Use: Cigarettes Assessment/Plan All Active Problems (Last Reviewed 10/09/20 @ 15:[address] Destin Cain, DO) (HFpEF) heart failure with preserved ejection fraction (Acute) DEVAN (acute kidney injury) (Resolved) 1. Acute hypoxic respiratory failure secondary to acute on chronic diastolic CHF with pulmonary hypertension/HTN/HLD/Chronic bilateral lower extremity lymphedema -He had an echo on 10/09/2020 with an EF of 65%, diastolic dysfunction as well as an RVSP of 63 mmHg -We will transition him to IV Lasix 80 mg twice daily, creatinine is improved from 3.33 to 2.98 however his BUN is gone up to 110 -We will continue with his home blood pressure and cholesterol medications -Continue with aspirin -Continue with PT/OT for evaluation and possible SNF placement 2. DM 2/morbid obesity -BMI of 49.9, discussed with him lifestyle modifications -We will hold his home Tradjenta, Actos, Prandin and place him on Lantus as well as mealtime insulin and a sliding scale insulin -Accu-Cheks AC at bedtime 3. CKD 4/chronic anemia both of chronic disease and iron deficiency/chronic thrombocytopenia -Unfortunately his fistula is too small and will need to be resurfaced further up the arm for to be usable for dialysis -He is given epoetin is an outpatient by hematology who is also managing his chronic thrombocytopenia -Continue with a 24-hour urine collection, this should be completed this evening around 6 4. COPD/IMAN -Does not have an exacerbation -We will place him on duo nebs as needed 5. Gout -Stable -continue with allopurinol DVT: Heparin Inpatient E&M: 99476 Subs Hosp L2
[2020-11-08 14:10] LABS: Bedside Glucose 165 mg/dL (70-110)
[2020-11-08] MEDS: Insulin Lispro 100 UNIT/ML INSULN.PEN SC ×2 (14:14→22:09)
[2020-11-08] MEDS: Tamsulosin HCl 0.4 MG Capsule PO (17:17)
[2020-11-08] MEDS: 0.9% Saline Lock 10 ML Syringe IV (17:18)
[2020-11-08 17:25] LABS: Bedside Glucose 140 mg/dL (70-110)
[2020-11-08 18:53] LABS: Creat.Clear Total Volume 3275 mL
[2020-11-08 18:54] LABS: Creatinine Urine 62.8 mg/dL (NO RANGE EST.)
[2020-11-08 19:09] LABS: Creatinine Clearance 47 ml/min (100-200); EST Glomerular Filtration Rate 22 mL/min (>60); Est Glom Filt Rate - Afr Amer 22 mL/min (>60)
[2020-11-08] MEDS: Atorvastatin Calcium 80 MG Tablet PO (22:07)
[2020-11-08 22:25] LABS: Bedside Glucose 172 mg/dL (70-110)
[2020-11-09] VITALS (14 sets, daily range): BP systolic 121–144; BP diastolic 42–55; PULSE 61–86; RESP 16–20; TEMP 36.5–37.3; O2SAT 85–98
[2020-11-09] MEDS: Nystatin Powder 15gm Bottle 1 APPLIC TOPICAL ×3 (06:29→22:00)
[2020-11-09] MEDS: Heparin Injection (Vial) 5,000 UNIT/ML VIAL 5000 UNIT SC ×3 (06:29→21:54)
[2020-11-09] MEDS: hydrALAZINE 25 MG Tablet PO ×4 (06:30→21:59)
[2020-11-09 07:00] LABS: Bedside Glucose 140 mg/dL (70-110)
[2020-11-09] MEDS: Carvedilol 25 MG Tablet 50 MG PO ×2 (07:59→17:25)
[2020-11-09] MEDS: Allopurinol 100 MG Tablet PO (08:00)
[2020-11-09] MEDS: Insulin Lispro 100 UNIT/ML INSULN.PEN SC ×6 (08:02→21:54)
[2020-11-09 08:08] LABS: Absolute Lymphocyte Count 0.24 X10^3/uL (0.83-4.51); Absolute Neutrophil Count 4.7 X10^3/uL (2.0-7.7); Basophil# 0.02 X10^3/uL; Basophil% 0.3 % (0-1); Eosinophil# 0.16 X10^3/uL; Eosinophils% 2.8 % (0-5); Hematocrit 30.2 % (40-54); Hemoglobin 9.4 g/dL (13.0-16.5); Lymphocyte # 0.24 X10^3/ul (4.0); Lymphocyte % 4.2 % (19-41); Mean Corp Hgb Conc 31.1 g/dL (32-36); Mean Corpuscular Hgb 32.2 pg (27.0-32.0); Mean Corpuscular Volume 103.4 fL (80-94); Mean Platelet Vol. 11.1 fl (6.2-12.0); Monocyte# 0.56 X10^3/uL; Monocyte% 9.7 % (0-10); NRBC Flagged by Analyzer 0 % (0-5); Neutrophil # 4.74 X10^3/uL (2.7-7.7); Neutrophil % 82.5 % (47-70); POSITIVE COUNT YES; POSITIVE DIFFERENTIAL YES; Platelet Count 73 K/mm3 (150-450); RBC Distribution Width SD 63.4 fl (35.1-43.9); Red Blood Count 2.92 M/mm3 (4.6-6.2); White Blood Count 5.8 K/mm3 (4.4-11.0)
[2020-11-09 08:14] LABS: Differential Indicated SCAN CRITERIA MET
[2020-11-09 08:28] LABS: Anion Gap 7 (5-15); BUN 113 mg/dL (7-18); BUN/Creat Ratio 35.4 RATIO (10-20); Calcium,Total 8.7 mg/dL (8.5-10.1); Chloride 110 mmol/L (98-107); Creatinine, Serum 3.19 mg/dL (0.70-1.30); EST Glomerular Filtration Rate 21 mL/min (>60); Est Glom Filt Rate - Afr Amer 25 mL/min (>60); Estimated Creatinine Clearance 21.61 ml/min; Glucose 150 mg/dL (74-106); Potassium 4.8 mmol/L (3.5-5.1); Sodium Level 141 mmol/L (136-145)
[2020-11-09 08:47] LABS: Platelet Estimate MOD DEC (ADEQ)
[2020-11-09] MEDS: Fluticasone 0.05% 1 SPRAY NASAL.SRY 2 SPRAY NASAL (10:17)
[2020-11-09] MEDS: cloNIDine HCl 0.1 MG Tablet 0.3 MG PO ×2 (10:17→22:00)
[2020-11-09] MEDS: 0.9% Saline Lock 10 ML Syringe IV (10:18)
--- NOTE | 2020-11-09 10:20 | PN_ITS ---
Subjective: No issues overnight, breathing a little bit better today. Creatinine did go up today but he did complete a 24-hour urine yesterday. Vitals/I&O's: Vital Signs Temp Pulse Resp BP Pulse Ox 98.4 F 64 20 H 136/48 H 94 11/09/20 08:15 11/09/20 08:15 11/09/20 08:15 11/09/20 08:15 11/09/20 08:15 Oxygen Flow Rate (L/min) 2 Oxygen Delivery Method Nasal Cannula Weight: 347 lb 0.121 oz Body Mass Index (BMI) 49.9 Finger Stick Blood Glucose 131 Intake and Output for Last 24 Hours 11/07/20 11/08/20 11/09/20 23:59 23:59 23:59 Intake Total 360 / 360 240 / 240 50 / 50 Output Total 100 / 100 3100 / 3100 Balance 260 / 260 -2860 / -2860 50 / 50 General: Alert, Oriented x3, Cooperative, No apparent distress HEENT: Atraumatic, PERRLA, EOMI, Normocephalic Oral: Moist Mucosa Neck: Supple, No JVD Lungs: Normal air movement, No rhonchi, No wheeze, No rales, Diminished Cardiovascular: Regular rate, Regular Rhythm, Normal S1, Normal S2, No murmurs Abdomen: Soft, Non Tender, Non-Distended, No Hepato-splenomegaly, Obese Extremities: Capillary Refill Less than 3 Seconds, Edema - Bilateral chronic lymphedema, currently Rickey wrapped Skin: No rashes, No breakdown Neurological: Neuro grossly intact, Sensory exam intact to light touch and pain Psych/Mental Status: Normal Affect, Appropriate Microbiology Past 72 Hours 11/07/20 09:55 Mucosa - Nose SARS-CoV-2 Antigen (Rapid) - Final Laboratory Results 11/08/20 14:06: POC Glucose 165 H 11/08/20 17:11: POC Glucose 140 H 11/08/20 18:15: Creatinine 3.0 H, Est GFR (MDRD) Af Amer 22 L, Est GFR (MDRD) Non-Af 22 L, Urine Collection Time 24.0, Timed Urine Volume 3275, Urine Creatinine 62.8, Creatinine Clearance 47 L 11/08/20 22:06: POC Glucose 172 H 11/09/20 06:28: POC Glucose 140 H 11/09/20 07:55: WBC 5.8, RBC 2.92 L, Hgb 9.4 L, Hct 30.2 L, MCV 103.4 H, MCH 32.2 H, MCHC 31.1 L, RDW Std Deviation 63.4 H, RDW Coeff of Gina 17.0 H, Plt Count 73 L, MPV 11.1, Immature Gran % (Auto) 0.500, Neut % (Auto) 82.5 H, Lymph % (Auto) 4.2 L, [place] % (Auto) 9.7, Eos % (Auto) 2.8, Baso % (Auto) 0.3, Absolute Neuts (auto) 4.7, Absolute Lymphs (auto) 0.24 L, Nucleated RBC % 0, Platelet Estimate MOD 11/09/20 07:55: Sodium 141, Potassium 4.8, Chloride 110 H, Carbon Dioxide 24.0, Anion Gap 7, BUN 113 H*, Creatinine 3.19 H, Estim Creat Clear Calc 21.61, Est GFR (MDRD) Af Amer 25 L, Est GFR (MDRD) Non-Af 21 L, BUN/Creatinine Ratio 35.4 H , Glucose 150 H, Calcium 8.7 Current Medications Acetaminophen (Acetaminophen 325 Mg Tablet) 650 mg PO Q6H PRN PRN PRN Reason: Pain Score 1-10 Last Admin: 11/07/20 21:31 Dose: 650 mg Documented by: Albuterol/Ipratropium (Ipratropium/Albuterol Sulfate 3 Ml Ampul.Neb) 3 ml INHALATION Q4HWA.RT PRN PRN Reason: SOB/Wheeze Allopurinol (Allop[facility]ol 100 Mg Tablet) [facility] Last Admin: 11/09/20 08:00 Dose: 100 mg Documented by: Atorvastatin Calcium (Atorvastatin Calcium 80 Mg Tablet) 80 mg PO QHS [facility]S [facility] BEDS AT [facility] Last Admin: 11/08/20 22:07 Dose: 80 mg Documented by: Carvedilol (Carvedilol 25 Mg Tablet) 50 [facility] Last Admin: 11/09/20 07:59 Dose: 50 mg Documented by: Cholecalciferol (Cholecalciferol (Vit D3) 1,000 Unit (25mcg)) 1,000 unit PO SuWeSa@1000 COUNTS INCLUDE 234 BEDS AT THE [facility] Last Admin: 11/08/20 09:20 Dose: 1,000 unit Documented by: Clonidine (Clonidine Hcl 0.1 Mg Tablet) 0.3 mg PO BID COUNTS INCLUDE 234 BEDS AT THE [facility] Last Admin: 11/08/20 22:08 Dose: 0.3 mg Documented by: Dextrose (Dextrose 50%-Water 25 Gm/50 Ml Disp.Syrin) 0 gm IV X1 PRN; Protocol PRN Reason: Hypoglycemia Fluticasone Propionate (Fluticasone 0.05% 1 Melba Nasal.Sry) 2 spray NASAL DAILY COUNTS INCLUDE 234 BEDS AT THE [facility] Last Admin: 11/08/20 09:19 Dose: 2 spray Documented by: Furosemide (Furosemide 100 Mg/10 Ml Vial) 80 mg IV BID@1000,1800 COUNTS INCLUDE 234 BEDS AT THE [facility] Last Admin: 11/08/20 17:17 Dose: 80 mg Documented by: Glucagon (Glucagon 1 Mg/Ml Syringe) 1 mg IM .X1 PRN PRN Reason: Hypoglycemia Heparin Sodium (Porcine) (Heparin Injection (Vial) 5,000 Unit/Ml Vial) 5,000 unit SC Q8 COUNTS INCLUDE 234 BEDS AT THE [facility] Last Admin: 11/09/20 06:29 Dose: 5,000 unit Documented by: Hydralazine HCl (Hydralazine 25 Mg Tablet) 25 mg PO TID COUNTS INCLUDE 234 BEDS AT THE [facility] Last Admin: 11/09/20 06:30 Dose: 25 mg Documented by: Sodium Chloride () 250 mls @ 15 mls/hr IV .[id number] PRN PRN Reason: Saline Flush Sodium Chloride () 250 mls @ 15 mls/hr IV .[id number] PRN PRN Reason: Additional IVPB Infusion Insulin Glargine (Insulin Glargine 100 Units/Ml Pen) 40 units SC BREAKFAST COUNTS INCLUDE 234 BEDS AT THE [facility] Last Admin: 11/09/20 08:02 Dose: 40 units Documented by: Insulin Glargine (Insulin Glargine 100 Units/Ml Pen) 40 units SC DINNER COUNTS INCLUDE 234 BEDS AT THE [facility] Last Admin: 11/08/20 17:15 Dose: Not Given Documented by: Insulin Human Lispro (Insulin Lispro 100 Unit/Ml Insuln.Pen) 5 unit SC BREAKFAST COUNTS INCLUDE 234 BEDS AT THE [facility] Last Admin: 11/09/20 08:02 Dose: 5 u Documented by: Insulin Human Lispro (Insulin Lispro 100 Unit/Ml Insuln.Pen) 5 unit SC DINNER COUNTS INCLUDE 234 BEDS AT THE [facility] Last Admin: 11/08/20 17:15 Dose: Not Given Documented by: Insulin Human Lispro (Insulin Lispro 100 Unit/Ml Insuln.Pen) 5 unit SC LUNCH COUNTS INCLUDE 234 BEDS AT THE [facility] Last Admin: 11/08/20 14:14 Dose: 5 units Documented by: Insulin Human Lispro (Insulin Lispro 100 Unit/Ml Insuln.Pen) 0 unit SC ACHS COUNTS INCLUDE 234 BEDS AT THE [facility]; Protocol Last Admin: 11/09/20 06:29 Dose: Not Given Documented by: Isosorbide Mononitrate (Isosorbide Mononitrate 120 Mg Tablet) 120 mg PO DAILY COUNTS INCLUDE 234 BEDS AT THE [facility] Last Admin: 11/08/20 09:20 Dose: 120 mg Documented by: Melatonin (Melatonin 3 Mg Tablet) 3 mg PO QHS PRN PRN PRN Reason: INSOMNIA Nystatin (Nystatin Powder 15gm Bottle) 1 applic TOPICAL TID COUNTS INCLUDE 234 BEDS AT THE [facility]; Protocol Last Admin: 11/09/20 06:29 Dose: 1 applicatio Documented by: Ondansetron HCl (Ondansetron 4 Mg/2 Ml Vial) 4 mg IV Q8H PRN PRN PRN Reason: NAUSEA/VOMITING Sodium Chloride (0.9% Saline Lock 10 Ml Syringe) 10 - 40 ml IV UD PRN PRN Reason: SALINE FLUSH Last Admin: 11/08/20 17:18 Dose: 20 ml Documented by: Tamsulosin HCl (Tamsulosin Hcl 0.4 Mg Capsule) 0.4 mg PO DAILY@1730 COUNTS INCLUDE 234 BEDS AT THE [facility] Last Admin: 11/08/20 17:17 Dose: 0.4 mg Documented by: STROKE Vital Signs/Narrative: Vital Signs Temp Pulse Resp BP Pulse Ox 11/09/20 08:15 98.4 F 64 20 H 136/48 H 94 11/09/20 06:59 85 11/09/20 06:30 65 Medical Necessity - Tobacco Use Smoking Status: Former smoker Tobacco Use: Cigarettes Assessment/Plan All Active Problems (Last Reviewed 10/09/20 @ 15:[address] Destin Cain DO) (HFpEF) heart failure with preserved ejection fraction (Acute) DEVAN (acute kidney injury) (Resolved) 1. Acute hypoxic respiratory failure secondary to acute on chronic diastolic CHF with pulmonary hypertension/HTN/HLD/Chronic bilateral lower extremity lymphedema -He had an echo on 10/09/2020 with an EF of 65%, diastolic dysfunction as well as an RVSP of 63 mmHg -We will transition him to IV Lasix 20 mg twice daily, continue to monitor creatinine -We will continue with his home blood pressure and cholesterol medications -Continue with aspirin -Continue with PT/OT for evaluation and possible SNF placement 2. DM 2/morbid obesity -BMI of 49.9, discussed with him lifestyle modifications -We will hold his home Tradjenta, Actos, Prandin and place him on Lantus as well as mealtime insulin and a sliding scale insulin -Accu-Cheks AC at bedtime 3. CKD 4/chronic anemia both of chronic disease and iron deficiency/chronic thrombocytopenia -Unfortunately his fistula is too small and will need to be resurfaced further up the arm for to be usable for dialysis -He is given epoetin is an outpatient by hematology who is also managing his chronic thrombocytopenia 4. COPD/IMAN -Does not have an exacerbation -We will place him on duo nebs as needed 5. Gout -Stable -continue with allopurinol DVT: Heparin Inpatient E&M: 10652 Subs Hosp L2
[2020-11-09] MEDS: Furosemide 20 MG/2 ML VIAL IV ×2 (11:31→17:26)
[2020-11-09 11:55] LABS: Bedside Glucose 169 mg/dL (70-110)
[2020-11-09 16:21] LABS: Bedside Glucose 158 mg/dL (70-110)
[2020-11-09] MEDS: Tamsulosin HCl 0.4 MG Capsule PO (17:26)
--- NOTE | 2020-11-09 18:08 | NURSING ---
spoke w/ pulmonary and they are aware of need for overnite pusle trending ordered
[2020-11-09] MEDS: Atorvastatin Calcium 80 MG Tablet PO (22:00)
[2020-11-09 22:25] LABS: Bedside Glucose 179 mg/dL (70-110)
[2020-11-10] VITALS (10 sets, daily range): BP systolic 131–166; BP diastolic 44–60; PULSE 57–91; RESP 15–18; TEMP 36.5–37; O2SAT 93–99
[2020-11-10] MEDS: Heparin Injection (Vial) 5,000 UNIT/ML VIAL 5000 UNIT SC ×3 (06:35→20:29)
[2020-11-10 07:23] LABS: Anion Gap 8 (5-15); BUN 125 mg/dL (7-18); BUN/Creat Ratio 34.9 RATIO (10-20); Calcium,Total 8.3 mg/dL (8.5-10.1); Chloride 110 mmol/L (98-107); Creatinine, Serum 3.58 mg/dL (0.70-1.30); EST Glomerular Filtration Rate 18 mL/min (>60); Est Glom Filt Rate - Afr Amer 22 mL/min (>60); Estimated Creatinine Clearance 19.26 ml/min; Glucose 102 mg/dL (74-106); Potassium 4.8 mmol/L (3.5-5.1); Sodium Level 142 mmol/L (136-145)
--- NOTE | 2020-11-10 07:24 | NURSING ---
wound photo: right lower leg (late entry from 11/07/20)
--- NOTE | 2020-11-10 07:25 | NURSING ---
wound photo: left lower leg (late entry from 11/07/20)
--- NOTE | 2020-11-10 07:26 | NURSING ---
wound photo: left lower leg (late entry from 11/07/20)
[2020-11-10 08:05] LABS: Bedside Glucose 83 mg/dL (70-110)
[2020-11-10] MEDS: Fluticasone 0.05% 1 SPRAY NASAL.SRY 2 SPRAY NASAL (08:13)
[2020-11-10] MEDS: Allopurinol 100 MG Tablet PO (08:15)
[2020-11-10] MEDS: Carvedilol 25 MG Tablet 50 MG PO ×2 (08:15→17:06)
[2020-11-10] MEDS: Ipratropium/Albuterol Sulfate 3 ML AMPUL.NEB INHALATION (08:29)
[2020-11-10] MEDS: Furosemide 20 MG/2 ML VIAL IV (10:23)
[2020-11-10] MEDS: cloNIDine HCl 0.1 MG Tablet 0.3 MG PO ×2 (10:23→20:29)
[2020-11-10] MEDS: 0.9% Saline Lock 10 ML Syringe IV (10:23)
[2020-11-10] MEDS: Insulin Lispro 100 UNIT/ML INSULN.PEN SC ×4 (10:28→20:25)
--- NOTE | 2020-11-10 10:46 | CASEMGMT ---
SW noted in patient's chart that he may need a assisted. Wound RN then came to TRACY notifying that patient does want to go to a assisted. SW met with patient introduced self and role at [facility]. He confirmed he wants to go to a SNF. Patient was provided a list of SNF providers including quality and resource use data and consistent with the patient?s preferred geographic region, medical needs, and insurance network. He told SW he would like [facility]. TRACY told him SW will make this referral, but he should look at the list and pick 2 other facilities he would be okay with in the event [facility] does not work out. TRACY then called [facility] with referral and also faxed information. Await answer. Gretel BASILIO MSW
[2020-11-10 12:36] LABS: Bedside Glucose 142 mg/dL (70-110)
--- NOTE | 2020-11-10 14:34 | PCM.CONS.R ---
Consultation - Renal 11/10/20 PCP/ Referring MD: Requesting physician: [] Primary care physician: Dr. Jean-Claude Garcia MD Reason for Consultation:: acute on CKD 4 - History of Present Illness History of Present Illness: The patient is a 70 year old morbidly obese M admitted for SOB, hypoxia over weekend he was treated with iv lasix. He has chronic dependent edema on diuretics. He has IMAN on CPAP with notable hypoxia. Oxygen level stable on NC during daytime. He had a 24h urine CRCL 40cc.min in September 2020. Repeat 24h urine still shows CRCL 47cc/min. He has worsening renal function when diuretics increased to treat chronic leg swellling. Now with rising creatinine while on lasix 80mg twice a day iv, now decreased to 20mg iv bid. Creatinine 3.3 to 3.58 eGFR 18cc/min. He denies uremic symptoms. Denies cough, SOB. He has an AVF that needs revision/resurfaced due to short length of fistula (diameter adequate). - Allergies Allergies: Allergies ARB-Angiotensin Receptor Antagonist Allergy (Verified 11/07/20 10:24) WORSENS RENAL FUNCTION WORSENS RENAL FUNCTION amoxicillin Adverse Reaction (Verified 11/07/20 10:24) Upset Stomach - Current Medications Current Medications: Current Medications Acetaminophen (Acetaminophen 325 Mg Tablet) 650 mg PO Q6H PRN PRN PRN Reason: Pain Score 1-10 Last Admin: 11/07/20 21:31 Dose: 650 mg Documented by: Albuterol/Ipratropium (Ipratropium/Albuterol Sulfate 3 Ml Ampul.Neb) 3 ml INHALATION Q4HWA.RT PRN PRN Reason: SOB/Wheeze Last Admin: 11/10/20 08:29 Dose: 3 ml Documented by: Allopurinol ([facility] 100 Mg Tablet) [facility] Last Admin: 11/10/20 08:15 Dose: 100 mg Documented by: Atorvastatin Calcium (Atorvastatin Calcium 80 Mg Tablet) 80 mg PO QHS [facility] Last Admin: 11/09/20 22:00 Dose: 80 mg Documented by: Carvedilol (Carvedil[facility] 25 Mg Tablet) [facility] Last Admin: 11/10/20 08:15 Dose: 50 mg Documented by: Cholecalciferol (Cholecalciferol (Vit D3) 1,000 Unit (25mcg)) 1,000 unit PO SuWeSa@1000 [facility] Last Admin: 11/09/20 10:19 Dose: 1,000 unit Documented by: Clonidine (Clonidine Hcl 0.1 Mg Tablet) 0.3 mg PO BID [facility] Last Admin: 11/10/20 10:23 Dose: 0.3 mg Documented by: Dextrose (Dextrose 50%-Water 25 Gm/50 Ml Disp.Syrin) 0 gm IV X1 PRN; Protocol PRN Reason: Hypoglycemia Fluticasone Propionate (Fluticasone 0.05% 1 [place] Nasal.Sry) 2 spray NASAL DAILY [facility] Last Admin: 11/10/20 08:13 Dose: 2 spray Documented by: Furosemide (Furosemide 20 Mg/2 Ml Vial) 20 mg IV BID@1000,1800 [facility] Last Admin: 11/10/20 10:23 Dose: 20 mg Documented by: Glucagon (Glucagon 1 Mg/Ml Syringe) 1 mg IM .X1 PRN PRN Reason: Hypoglycemia Heparin Sodium (Porcine) (Heparin Injection (Vial) 5,000 Unit/Ml Vial) 5,000 unit SC Q8 [facility] Last Admin: 11/10/20 06:35 Dose: 5,000 unit Documented by: Hydralazine HCl (Hydralazine 25 Mg Tablet) 25 mg PO TID [facility] Last Admin: 11/09/20 21:59 Dose: 25 mg Documented by: Sodium Chloride () 250 mls @ 15 mls/hr IV .[id number] PRN PRN Reason: Saline Flush Sodium Chloride () 250 mls @ 15 mls/hr IV .[id number] PRN PRN Reason: Additional IVPB Infusion Insulin Glargine (Insulin Glargine 100 Units/Ml Pen) 40 units SC BREAKFAST [facility] Last Admin: 11/10/20 10:29 Dose: 40 units Documented by: Insulin Glargine (Insulin Glargine 100 Units/Ml Pen) 40 units SC DINNER [facility] Last Admin: 11/09/20 17:27 Dose: 40 u Documented by: Insulin Human Lispro (Insulin Lispro 100 Unit/Ml Insuln.Pen) 5 unit SC BREAKFAST [facility] Last Admin: 11/10/20 10:28 Dose: 5 u Documented by: Insulin Human Lispro (Insulin Lispro 100 Unit/Ml Insuln.Pen) 5 unit SC DINNER [facility] Last Admin: 11/09/20 17:24 Dose: 5 u Documented by: Insulin Human Lispro (Insulin Lispro 100 Unit/Ml Insuln.Pen) 5 unit SC LUNCH [facility] Last Admin: 11/10/20 12:30 Dose: 5 units Documented by: Insulin Human Lispro (Insulin Lispro 100 Unit/Ml Insuln.Pen) 0 unit SC ACHS [facility]; Protocol Last Admin: 11/10/20 12:26 Dose: Not Given Documented by: Isosorbide Mononitrate (Isosorbide Mononitrate 120 Mg Tablet) 120 mg PO DAILY [facility] Last Admin: 11/10/20 08:16 Dose: 120 mg Documented by: Melatonin (Melatonin 3 Mg Tablet) 3 mg PO QHS PRN PRN PRN Reason: INSOMNIA Nystatin (Nystatin Powder 15gm Bottle) 1 applic TOPICAL TID [facility]; Protocol Last Admin: 11/10/20 06:36 Dose: Not Given Documented by: Ondansetron HCl (Ondansetron 4 Mg/2 Ml Vial) 4 mg IV Q8H PRN PRN PRN Reason: NAUSEA/VOMITING Sodium Chloride (0.9% Saline Lock 10 Ml Syringe) 10 - 40 ml IV UD PRN PRN Reason: SALINE FLUSH Last Admin: 11/10/20 10:23 Dose: 20 ml Documented by: Tamsulosin HCl (Tamsulosin Hcl 0.4 Mg Capsule) 0.4 mg PO DAILY@1730 [facility] Last Admin: 11/09/20 17:26 Dose: 0.4 mg Documented by: - Past Medical History Past Medical History (Chronic Problems): Chronic Problems (Last Reviewed 10/09/20 @ 15:[address] Destin Cain, DO) Chronic diastolic (congestive) heart failure (Chronic) Chronic kidney disease (CKD) (Chronic) Morbid obesity (Chronic) Anemia (Chronic) Renal failure (Chronic) Thrombocytopenia (Chronic) Diabetes mellitus, type II (Chronic) IMAN (obstructive sleep apnea) (Chronic) Chronic diastolic (congestive) heart failure (Chronic) Secondary pulmonary arterial hypertension (Chronic) Right bundle branch block (RBBB) (Chronic) Essential (primary) hypertension (Chronic) Hyperlipidemia (Chronic) Lymphedema of both lower extremities (Chronic) - Past Surgical History Surgical History: cataract, - - AVF left radiocephalic, nasal cyst removal. - Social History Smoking Status: Former smoker Alcohol: None Drugs: None - Family History Sibling Family History: Family History (Last Reviewed 10/09/20 @ 15:[address] Destin Cain DO) Other Diabetes Heart disease Hypertension History Items: Heart Disease Paternal Family History: Family History (Last Reviewed 10/09/20 @ 15:[address] Destin Cain DO) Other Diabetes Heart disease Hypertension History Items: Cancer - Other with a history of possibly lymphoma., Diabetes Maternal Family History: Family History (Last Reviewed 10/09/20 @ 15:[address] Destin Cain DO) Other Diabetes Heart disease Hypertension History Items: Diabetes, Heart Disease, Hypertension Review of Systems Constitutional: Reports: Weakness, Weight Change. Denies: Anorexia, Chills, Fever Cardiovascular: Denies: Chest Pain Respiratory: Denies: Cough, Shortness of Breath Gastrointestinal: Denies: Nausea, Vomiting Genitourinary: Denies: Dysuria Musculoskeletal: Reports: - - leg edema Neurological: Reports: - - gen weakness Hematologic/ Lymphatic: Reports: Anemia, - - hx thrombocytopenia. Denies: Petechiae, Purpura - Physical Exam Vitals/I&O's: Vital Signs Temp Pulse Resp BP Pulse Ox 97.8 F 91 15 149/60 H 96 11/10/20 08:02 11/10/20 10:31 11/10/20 08:29 11/10/20 10:31 11/10/20 08:02 Oxygen Flow Rate (L/min) 2 Oxygen Delivery Method Nasal Cannula Weight: 157.2 kg Body Mass Index (BMI) 49.9 Finger Stick Blood Glucose 131 Intake and Output for Last 24 Hours 11/08/20 11/09/20 11/10/20 23:59 23:59 23:59 Intake Total 240 / 240 1050 / 1150 520 / 520 Output Total 3100 / 3100 600 / 600 Balance -2860 / -2860 450 / 550 520 / 520 General: Alert, Oriented x3, Cooperative, No apparent distress Oral: Dry Mucosa Lungs: Clear to auscultation Cardiovascular: Regular rate, No rub noted Abdomen: Bowel Sounds Present, Soft, Non Tender, Obese - super morbidly obese Extremities: Edema - 2+3+chronic lymphedema Musculoskeletal: No Muscle Wasting Neurological: Cranial nerves II-XII grossly intact, - - no tremor Psych/Mental Status: Normal Affect, Appropriate, Alert and oriented to time, place, person, mood and affect Microbiology Past 72 Hours 11/07/20 09:55 Mucosa - Nose SARS-CoV-2 Antigen (Rapid) - Final Laboratory Results 11/09/20 16:13: POC Glucose 158 H 11/09/20 21:47: POC Glucose 179 H 11/10/20 05:35: Sodium 142, Potassium 4.8, Chloride 110 H, Carbon Dioxide 24.0, Anion Gap 8, BUN 125 H*, Creatinine 3.58 H, Estim Creat Clear Calc 19.26, Est GFR (MDRD) Af Amer 22 L, Est GFR (MDRD) Non-Af 18 L, BUN/Creatinine Ratio 34.9 H, Glucose 102, Calcium 8.3 L 11/10/20 07:59: POC Glucose 83 11/10/20 12:25: POC Glucose 142 H Clinical Impression(s) from Imaging Studies Chest X-Ray 11/07/20 09:06 IMPRESSION: Cardiomegaly. Mild degree of CHF with blunting of both costophrenic angles and mild basilar atelectasis. Electronically Signed: Delvis Chilel MD at 9:32 EST , Service support , Current Medications Acetaminophen (Acetaminophen 325 Mg Tablet) 650 mg PO Q6H PRN PRN PRN Reason: Pain Score 1-10 Last Admin: 11/07/20 21:31 Dose: 650 mg Documented by: Albuterol/Ipratropium (Ipratropium/Albuterol Sulfate 3 Ml Ampul.Neb) 3 ml INHALATION Q4HWA.RT PRN PRN Reason: SOB/Wheeze Last Admin: 11/10/20 08:29 Dose: 3 ml Documented by: Allopurinol (Allop[facility] 100 Mg Tablet) [facility] Last Admin: 11/10/20 08:15 Dose: 100 mg Documented by: Atorvastatin Calcium (Atorvastatin Calcium 80 Mg Tablet) 80 mg PO QHS [facility] Last Admin: 11/09/20 22:00 Dose: 80 mg Documented by: Carvedilol (Carvedilol 25 Mg Tablet) [facility] Last Admin: 11/10/20 08:15 Dose: 50 mg Documented by: Cholecalciferol (Cholecalciferol (Vit D3) 1,000 Unit (25mcg)) 1,000 unit PO SuWeSa@1000 [facility] Last Admin: 11/09/20 10:19 Dose: 1,000 unit Documented by: Clonidine (Clonidine Hcl 0.1 Mg Tablet) 0.3 mg PO BID [facility] Last Admin: 11/10/20 10:23 Dose: 0.3 mg Documented by: Dextrose (Dextrose 50%-Water 25 Gm/50 Ml Disp.Syrin) 0 gm IV X1 PRN; Protocol PRN Reason: Hypoglycemia Fluticasone Propionate (Fluticasone 0.05% 1 [place] Nasal.Sry) 2 spray NASAL DAILY [facility] Last Admin: 11/10/20 08:13 Dose: 2 spray Documented by: Furosemide (Furosemide 20 Mg/2 Ml Vial) 20 mg IV BID@1000,1800 [facility] Last Admin: 11/10/20 10:23 Dose: 20 mg Documented by: Glucagon (Glucagon 1 Mg/Ml Syringe) 1 mg IM .X1 PRN PRN Reason: Hypoglycemia Heparin Sodium (Porcine) (Heparin Injection (Vial) 5,000 Unit/Ml Vial) 5,000 unit SC Q8 [facility] Last Admin: 11/10/20 06:35 Dose: 5,000 unit Documented by: Hydralazine HCl (Hydralazine 25 Mg Tablet) 25 mg PO TID [facility] Last Admin: 11/09/20 21:59 Dose: 25 mg Documented by: Sodium Chloride () 250 mls @ 15 mls/hr IV .[id number] PRN PRN Reason: Saline Flush Sodium Chloride () 250 mls @ 15 mls/hr IV .[id number] PRN PRN Reason: Additional IVPB Infusion Insulin Glargine (Insulin Glargine 100 Units/Ml Pen) 40 units SC BREAKFAST [facility] Last Admin: 11/10/20 10:29 Dose: 40 units Documented by: Insulin Glargine (Insulin Glargine 100 Units/Ml Pen) 40 units SC DINNER [facility] Last Admin: 11/09/20 17:27 Dose: 40 u Documented by: Insulin Human Lispro (Insulin Lispro 100 Unit/Ml Insuln.Pen) 5 unit SC BREAKFAST [facility] Last Admin: 11/10/20 10:28 Dose: 5 u Documented by: Insulin Human Lispro (Insulin Lispro 100 Unit/Ml Insuln.Pen) 5 unit SC DINNER [facility] Last Admin: 11/09/20 17:24 Dose: 5 u Documented by: Insulin Human Lispro (Insulin Lispro 100 Unit/Ml Insuln.Pen) 5 unit SC LUNCH [facility] Last Admin: 11/10/20 12:30 Dose: 5 units Documented by: Insulin Human Lispro (Insulin Lispro 100 Unit/Ml Insuln.Pen) 0 unit SC ACHS [facility]; Protocol Last Admin: 11/10/20 12:26 Dose: Not Given Documented by: Isosorbide Mononitrate (Isosorbide Mononitrate 120 Mg Tablet) 120 mg PO DAILY [facility] Last Admin: 11/10/20 08:16 Dose: 120 mg Documented by: Melatonin (Melatonin 3 Mg Tablet) 3 mg PO QHS PRN PRN PRN Reason: INSOMNIA Nystatin (Nystatin Powder 15gm Bottle) 1 applic TOPICAL TID [facility]; Protocol Last Admin: 11/10/20 06:36 Dose: Not Given Documented by: Ondansetron HCl (Ondansetron 4 Mg/2 Ml Vial) 4 mg IV Q8H PRN PRN PRN Reason: NAUSEA/VOMITING Sodium Chloride (0.9% Saline Lock 10 Ml Syringe) 10 - 40 ml IV UD PRN PRN Reason: SALINE FLUSH Last Admin: 11/10/20 10:23 Dose: 20 ml Documented by: Tamsulosin HCl (Tamsulosin Hcl 0.4 Mg Capsule) 0.4 mg PO DAILY@1730 [facility] Last Admin: 11/09/20 17:26 Dose: 0.4 mg Documented by: Assessment/Plan All Active Problems (Last Reviewed 10/09/20 @ 15:[address] Destin Cain, DO) (HFpEF) heart failure with preserved ejection fraction (Acute) DEVAN (acute kidney injury) (Resolved) 1. Acute on CKD Stage 4. Rising creatinine on high dose iv lasix. Dose reduced today. No uremic symptoms. Creatinine 3.58 eGFR 18-20cc/min. 24h urine CRCL 40cc/min. AVF needs revision, resurface to increase length of fistula. Need strict I/O's 2. Lymphedema, dependent edema from morbid obesity, pulmonary hypertension. Cautious use of diuretics. 3. DM2 stable 4. HTN stable 5. IMAN on CPAP 6. Pulmonary hypertension 7. Anemia, thrombocytopenia hematology mgmt as outpt
[2020-11-10] MEDS: hydrALAZINE 25 MG Tablet PO ×2 (15:02→20:28)
[2020-11-10] MEDS: Nystatin Powder 15gm Bottle 1 APPLIC TOPICAL ×2 (15:03→20:30)
--- NOTE | 2020-11-10 15:11 | CASEMGMT ---
TRACY called [facility] and they have not decided on patient. TRACY went to patient's room per his request. TRACY told him SW has not heard from [facility] yet. He told SW he [facility] TRACY spoke with [facility] and she said they would have a bed for patient. SW let patient know this information. TRACY also let him know that if he were to go on dialysis he would not be able to go to [facility] as they do not take dialysis patients. He said he won't be going on dialysis for awhile. TRACY called Renetta at [facility] and let her know patient has chosen to [facility]. Plan: d/c to [facility] Gretel LOVELL
[2020-11-10] MEDS: Tamsulosin HCl 0.4 MG Capsule PO (17:06)
[2020-11-10 17:15] LABS: Bedside Glucose 143 mg/dL (70-110)
--- NOTE | 2020-11-10 17:16 | PCM.PROGNOTE ---
Subjective: Patient was seen and examined today, he is on low-flow nasal cannula oxygen, I talked with nephrology briefly about his care, nephrology recommended the patient be transitioned over to oral diuretics. Patient is requested placement short-term for inpatient rehab services, we are awaiting confirmation that he can go to TCU. - Physical Exam Vitals/I&O's: Vital Signs Temp Pulse Resp BP Pulse Ox 98 F 62 18 154/60 H 99 11/10/20 14:35 11/10/20 15:02 11/10/20 14:35 11/10/20 15:02 11/10/20 14:35 Oxygen Flow Rate (L/min) 2 Oxygen Delivery Method Nasal Cannula Weight: 157.2 kg Body Mass Index (BMI) 49.9 Finger Stick Blood Glucose 131 Intake and Output for Last 24 Hours 11/08/20 11/09/20 11/10/20 23:59 23:59 23:59 Intake Total 240 / 240 1050 / 1150 995 / 995 Output Total 3100 / 3100 600 / 600 Balance -2860 / -2860 450 / 550 995 / 995 General: Alert, Oriented x3, Cooperative, No apparent distress, Well developed, Well nourished HEENT: Atraumatic, PERRLA, EOMI, Normocephalic Oral: Moist Mucosa Neck: Supple, No JVD, Trachea Midline, Thyroid Normal Size and Texture Lungs: Clear to auscultation, No rhonchi, No wheeze, Diminished Cardiovascular: Regular rate, Regular Rhythm, Normal S1, Normal S2, No murmurs, PMI Normal, No rub noted, No Gallop Abdomen: Bowel Sounds Present, Soft, Non Tender, Non-Distended, Obese Extremities: Capillary Refill Less than 3 Seconds, Edema - Severe lymphedematous changes are noted over both legs Skin: No rashes, No breakdown Musculoskeletal: No Tenderness to Palpation of Joints or Extremities Neurological: Cranial nerves II-XII grossly intact, Neuro grossly intact, Sensory exam intact to light touch and pain, Coordination normal Psych/Mental Status: Normal Affect, Appropriate, Alert and oriented to time, place, person, mood and affect Laboratory Results 11/09/20 21:47: POC Glucose 179 H 11/10/20 05:35: Sodium 142, Potassium 4.8, Chloride 110 H, Carbon Dioxide 24.0, Anion Gap 8, BUN 125 H*, Creatinine 3.58 H, Estim Creat Clear Calc 19.26, Est GFR (MDRD) Af Amer 22 L, Est GFR (MDRD) Non-Af 18 L, BUN/Creatinine Ratio 34.9 H, Glucose 102, Calcium 8.3 L 11/10/20 07:59: POC Glucose 83 11/10/20 12:25: POC Glucose 142 H 11/10/20 16:59: POC Glucose 143 H Current Medications Acetaminophen (Acetaminophen 325 Mg Tablet) 650 mg PO Q6H PRN PRN PRN Reason: Pain Score 1-10 Last Admin: 11/07/20 21:31 Dose: 650 mg Documented by: Albuterol/Ipratropium (Ipratropium/Albuterol Sulfate 3 Ml Ampul.Neb) 3 ml INHALATION Q4HWA.RT PRN PRN Reason: SOB/Wheeze Last Admin: 11/10/20 08:29 Dose: 3 ml Documented by: Allopurinol ([facility] 100 Mg Tablet) [facility] Last Admin: 11/10/20 08:15 Dose: 100 mg Documented by: Atorvastatin Calcium (Atorvastatin Calcium 80 Mg Tablet) 80 mg PO QHS [facility] Last Admin: 11/09/20 22:00 Dose: 80 mg Documented by: Carvedilol (Carvedilol 25 Mg Tablet) [facility] Last Admin: 11/10/20 17:06 Dose: 50 mg Documented by: Cholecalciferol (Cholecalciferol (Vit D3) 1,000 Unit (25mcg)) 1,000 unit PO SuWeSa@1000 [facility] Last Admin: 11/09/20 10:19 Dose: 1,000 unit Documented by: Clonidine (Clonidine Hcl 0.1 Mg Tablet) 0.3 mg PO BID [facility] Last Admin: 11/10/20 10:23 Dose: 0.3 mg Documented by: Dextrose (Dextrose 50%-Water 25 Gm/50 Ml Disp.Syrin) 0 gm IV X1 PRN; Protocol PRN Reason: Hypoglycemia Fluticasone Propionate (Fluticasone 0.05% 1 [place] Nasal.Sry) 2 spray NASAL DAILY [facility] Last Admin: 11/10/20 08:13 Dose: 2 spray Documented by: Furosemide (Furosemide 40 Mg Tablet) 40 mg PO DAILY [facility] Glucagon (Glucagon 1 Mg/Ml Syringe) 1 mg IM .X1 PRN PRN Reason: Hypoglycemia Heparin Sodium (Porcine) (Heparin Injection (Vial) 5,000 Unit/Ml Vial) 5,000 unit SC Q8 [facility] Last Admin: 11/10/20 15:03 Dose: 5,000 unit Documented by: Hydralazine HCl (Hydralazine 25 Mg Tablet) 25 mg PO TID [facility] Last Admin: 11/10/20 15:02 Dose: 25 mg Documented by: Sodium Chloride () 250 mls @ 15 mls/hr IV .[id number] PRN PRN Reason: Saline Flush Sodium Chloride () 250 mls @ 15 mls/hr IV .[id number] PRN PRN Reason: Additional IVPB Infusion Insulin Glargine (Insulin Glargine 100 Units/Ml Pen) 40 units SC BREAKFAST [facility] Last Admin: 11/10/20 10:29 Dose: 40 units Documented by: Insulin Glargine (Insulin Glargine 100 Units/Ml Pen) 40 units SC DINNER [facility] Last Admin: 11/10/20 17:05 Dose: 40 u Documented by: Insulin Human Lispro (Insulin Lispro 100 Unit/Ml Insuln.Pen) 5 unit SC BREAKFAST [facility] Last Admin: 11/10/20 10:28 Dose: 5 u Documented by: Insulin Human Lispro (Insulin Lispro 100 Unit/Ml Insuln.Pen) 5 unit SC DINNER [facility] Last Admin: 11/10/20 17:04 Dose: 5 u Documented by: Insulin Human Lispro (Insulin Lispro 100 Unit/Ml Insuln.Pen) 5 unit SC LUNCH [facility] Last Admin: 11/10/20 12:30 Dose: 5 units Documented by: Insulin Human Lispro (Insulin Lispro 100 Unit/Ml Insuln.Pen) 0 unit SC ACHS [facility]; Protocol Last Admin: 11/10/20 17:04 Dose: Not Given Documented by: Isosorbide Mononitrate (Isosorbide Mononitrate 120 Mg Tablet) 120 mg PO DAILY [facility] Last Admin: 11/10/20 08:16 Dose: 120 mg Documented by: Melatonin (Melatonin 3 Mg Tablet) 3 mg PO QHS PRN PRN PRN Reason: INSOMNIA Nystatin (Nystatin Powder 15gm Bottle) 1 applic TOPICAL TID [facility]; Protocol Last Admin: 11/10/20 15:03 Dose: 1 applicatio Documented by: Ondansetron HCl (Ondansetron 4 Mg/2 Ml Vial) 4 mg IV Q8H PRN PRN PRN Reason: NAUSEA/VOMITING Sodium Chloride (0.9% Saline Lock 10 Ml Syringe) 10 - 40 ml IV UD PRN PRN Reason: SALINE FLUSH Last Admin: 11/10/20 10:23 Dose: 20 ml Documented by: Tamsulosin HCl (Tamsulosin Hcl 0.4 Mg Capsule) 0.4 mg PO DAILY@1730 [facility] Last Admin: 11/10/20 17:06 Dose: 0.4 mg Documented by: Medical Necessity - Tobacco Use Smoking Status: Former smoker Tobacco Use: Cigarettes Assessment/Plan All Active Problems (Last Reviewed 10/09/20 @ 15:[address] Destin Cain DO) (HFpEF) heart failure with preserved ejection fraction (Acute) DEVAN (acute kidney injury) (Resolved) #1 Acute on chronic diastolic congestive heart failure-patient will be changed to torsemide 20 mg daily starting tomorrow, his IV Lasix was stopped today #2 hypoxia secondary to #1-it is unclear whether this is chronic in nature, patient was not on any oxygen at home prior to coming in to the hospital. He is compliant with his CPAP. #3 moderate pulmonary hypertension #4 morbid obesity #5 generalized debility secondary to multiple medical problems-again patient is requested temporary placement in an inpatient halfway facility #6 severe lymphedema of the legs #7 chronic thrombocytopenia #8 stage IV chronic kidney disease secondary to type 2 diabetes #9 type 2 diabetes #10 hyperlipidemia #11 obstructive sleep apnea-patient states he is compliant with his CPAP at home Inpatient E&M: [id number] [facility]osp L2
[2020-11-10] MEDS: Atorvastatin Calcium 80 MG Tablet PO (20:29)
[2020-11-10 21:01] LABS: Bedside Glucose 150 mg/dL (70-110)
[2020-11-11] VITALS (7 sets, daily range): BP systolic 129–153; BP diastolic 39–83; PULSE 56–66; RESP 16–18; TEMP 36.6–36.8; O2SAT 81–98
[2020-11-11] MEDS: hydrALAZINE 25 MG Tablet PO ×2 (06:38→14:16)
[2020-11-11] MEDS: Heparin Injection (Vial) 5,000 UNIT/ML VIAL 5000 UNIT SC ×2 (06:39→14:16)
[2020-11-11 06:40] LABS: Bedside Glucose 63 mg/dL (70-110)
[2020-11-11 06:40] LABS: Bedside Glucose 93 mg/dL (70-110)
[2020-11-11 06:52] LABS: Albumin, Serum 3.3 g/dL (3.2-5.0); BUN 120 mg/dL (7-18); BUN/Creat Ratio 34.1 RATIO (10-20); Calcium,Total 8.2 mg/dL (8.5-10.1); Chloride 110 mmol/L (98-107); Creatinine, Serum 3.52 mg/dL (0.70-1.30); EST Glomerular Filtration Rate 18 mL/min (>60); Est Glom Filt Rate - Afr Amer 22 mL/min (>60); Estimated Creatinine Clearance 19.59 ml/min; Glucose 55 mg/dL (74-106); Phosphorus 5.5 mg/dL (2.5-4.9); Potassium 4.8 mmol/L (3.5-5.1); Sodium Level 140 mmol/L (136-145)
[2020-11-11 07:26] LABS: Bedside Glucose 31 mg/dL (70-110)
[2020-11-11 07:26] LABS: Bedside Glucose 51 mg/dL (70-110)
[2020-11-11] MEDS: Fluticasone 0.05% 1 SPRAY NASAL.SRY 2 SPRAY NASAL (08:36)
[2020-11-11] MEDS: cloNIDine HCl 0.1 MG Tablet 0.3 MG PO (08:36)
[2020-11-11] MEDS: Carvedilol 25 MG Tablet 50 MG PO (08:37)
[2020-11-11] MEDS: Furosemide 40 MG Tablet PO (08:37)
[2020-11-11] MEDS: Allopurinol 100 MG Tablet PO (08:37)
--- NOTE | 2020-11-11 10:17 | PCM.TXEXTCAR ---
- Diet 11/10/20 09:38 Diet: Cardiac: Calorie-Controlled Food consistency:: Regular Liquid Consistency:: Regular/Thin Dietary Modifications:: Consistent Carbohydrate Protein Restricted Sodium Restricted Is pt able to select menu?: Yes Fluid restriction:: 1500 mL How many daily calories?: 2000 calorie - Routine Orders/Code Status Routine Lab Work: BMP - on 11/13/20 and 11/17/20, - - Fingerstick blood sugars before meals/ nightly, coverage with Humalog subcu per protocol: 200?250: 5 units subcu, 251-300: 8 units subcu, 301-350: 12 units subcu - Wound(s) bilateral lower legs Wound Type: scattered blistered areas Dressing Change: Adaptic - Therapies Weight Bearing: Full weight bearing Physical Therapy: Eval and Treat Occupational Therapy: Eval and Treat - Allergies/Procedures Done in Hospital Allergies/Adverse Reactions: Allergies ARB-Angiotensin Receptor Antagonist Allergy (Verified 11/07/20 10:24) WORSENS RENAL FUNCTION WORSENS RENAL FUNCTION amoxicillin Adverse Reaction (Verified 11/07/20 10:24) Upset Stomach Procedures: None - Type of Care/Length of Stay Estimated LOS: Convalescent Care Less Than 30 days Type of Care Needed: Skilled Rehab Potential: Good Prognosis: Good - Additional Orders/Day of Discharge Additional Orders: Follow-up with Dr. Gutierrez (nephrology)-call office for appointment H&P will serve as current which was dated: 11/07/20 Day of Discharge: 11/11/20 - Dietary and Speech Recommendations Dietitian Recommendations/Changes: Will change diet to 2000 calorie; protein restricted; consistent CHO; cardiac/sodium-restricted with 1500 ml FR. Pt does not want ONS--intake improved & contraindicated due to renal labs. - Follow Up Care Primary Care Physician: Jean-Claude Garcia MD [Primary Care Provider] - Please Follow Up With: Jean-Claude Garcia MD
--- NOTE | 2020-11-11 10:49 | PHA.DC.MR ---
Pharmacy Service has performed discharge medication reconciliation for this patient upon transfer to TCU. Home Medications Aspirin [Aspirin, Baby] 81 mg PO DAILY 03/03/15 Fluticasone 0.05% [Flonase Nasal [place]] 2 spray NASAL DAILY 12/31/15 Allopurinol [Zyloprim] 100 mg PO DAILYCM 03/03/19 Carvedilol [Coreg] 50 mg PO BID 03/03/19 Cholecalciferol (VIT D3) [Vitamin D3] 1,000 unit PO SUWESA 03/03/19 Clonidine HCl [Catapres] 0.3 mg PO BID 03/03/19 Isosorbide Mononitrate [Isosorbide Mononitrate ER] 120 mg PO DAILY 03/03/19 Umeclidinium Brm/Vilanterol Tr [Anoro Ellipta 62.5-25 Mcg INH] 1 puff IH DAILY 03/03/19 hydrALAZINE [Apresoline] 25 mg PO TID 03/03/19 atorvastatin 80 mg tablet 80 mg PO QHS #90 tab 04/04/19 Albuterol Inhaler [Ventolin Hfa] 2 puff INHALATION Q6H PRN PRN 04/27/19 Nitroglycerin (INPATIENT USE) [Nitrostat] 0.4 mg SUBLINGUAL Q5M PRN 09/19/20 Torsemide 20 mg PO DAILY 11/07/20 Acetaminophen [Tylenol Tablet] 650 mg PO Q6H PRN PRN tab 11/11/20 Insulin Glargine [Lantus SoloStar Pen] 30 units SC BREAKFAST #1 pen 11/11/20 Insulin Glargine [Lantus SoloStar Pen] 30 units SC DINNER #1 pen 11/11/20 Insulin Lispro [Humalog KwikPen] 5 unit SC BREAKFAST insuln.pen 11/11/20 Insulin Lispro [Humalog KwikPen] 5 unit SC DINNER insuln.pen 11/11/20 Insulin Lispro [Humalog KwikPen] 5 unit SC LUNCH insuln.pen 11/11/20 Nystatin Powder [Mycostatin Powder] 1 applic TOPICAL TID bottle 11/11/20 Tamsulosin HCl [Flomax] 0.4 mg PO DAILY@1730 cap 11/11/20 The patient's discharge medication list was reviewed for discrepancies and discrepancies were resolved.
--- NOTE | 2020-11-11 11:24 | CASEMGMT ---
Patient has a Healthcare Power of Merchandising [employer] and a Healthcare Living Will on file at [facility]. His sister, Rhiannon Tam is his HCPOA. Gretel BASILIO MSW
--- NOTE | 2020-11-11 11:31 | PN.RENAL_ITS ---
Subjective: chronic leg edema. Going to TCU today. Renal fxn slightly improved. - Physical Exam Vitals/I&O's: Vital Signs Temp Pulse Resp BP Pulse Ox 97.8 F 66 16 153/83 H 98 11/11/20 08:31 11/11/20 08:31 11/11/20 08:31 11/11/20 08:31 11/11/20 08:31 Oxygen Flow Rate (L/min) 2 Oxygen Delivery Method Nasal Cannula Weight: 157.5 kg Body Mass Index (BMI) 49.9 Finger Stick Blood Glucose 131 Intake and Output for Last 24 Hours 11/09/20 11/10/20 11/11/20 23:59 23:59 23:59 Intake Total 1050 / 1150 995 / 995 500 / 500 Output Total 600 / 600 550 / 550 Balance 450 / 550 445 / 445 500 / 500 Laboratory Results 11/10/20 12:25: POC Glucose 142 H 11/10/20 16:59: POC Glucose 143 H 11/10/20 20:22: POC Glucose 150 H 11/11/20 04:59: POC Glucose 31 L* 11/11/20 05:09: POC Glucose 51 L 11/11/20 05:16: Sodium 140, Potassium 4.8, Chloride 110 H, Carbon Dioxide 22.0, BUN 120 H*, Creatinine 3.52 H, Estim Creat Clear Calc 19.59, Est GFR (MDRD) Af Amer 22 L, Est GFR (MDRD) Non-Af 18 L, BUN/Creatinine Ratio 34.1 H, Glucose 55 L , Calcium 8.2 L, Phosphorus 5.5 H, Albumin 3.3 11/11/20 05:27: POC Glucose 63 L 11/11/20 06:31: POC Glucose 93 Current Medications Acetaminophen (Acetaminophen 325 Mg Tablet) 650 mg PO Q6H PRN PRN PRN Reason: Pain Score 1-10 Last Admin: 11/07/20 21:31 Dose: 650 mg Documented by: Albuterol/Ipratropium (Ipratropium/Albuterol Sulfate 3 Ml Ampul.Neb) 3 ml INHALATION Q4HWA.RT PRN PRN Reason: SOB/Wheeze Last Admin: 11/10/20 08:29 Dose: 3 ml Documented by: Allopurinol (Allopurinol 100 Mg Tablet) 100 mg PO DAILYCM [facility] Last Admin: 02/09/21 08:37 Dose: 100 mg Documented by: Atorvastatin Calcium (Atorvastatin Calcium 80 Mg Tablet) 80 mg PO QHS [facility] Last Admin: 11/10/20 20:29 Dose: 80 mg Documented by: Carvedilol (Carvedilol 25 Mg Tablet) 50 mg PO BIDCM [facility] Last Admin: 11/11/20 08:37 Dose: 50 mg Documented by: Cholecalciferol (Cholecalciferol (Vit D3) 1,000 Unit (25mcg)) 1,000 unit PO SuWeSa@1000 [facility] Last Admin: 11/09/20 10:19 Dose: 1,000 unit Documented by: Clonidine (Clonidine Hcl 0.1 Mg Tablet) 0.3 mg PO BID [facility] Last Admin: 11/11/20 08:36 Dose: 0.3 mg Documented by: Dextrose (Dextrose 50%-Water 25 Gm/50 Ml Disp.Syrin) 0 gm IV X1 PRN; Protocol PRN Reason: Hypoglycemia Fluticasone Propionate (Fluticasone 0.05% 1 [place] Nasal.Sry) 2 spray NASAL DAILY [facility] Last Admin: 11/11/20 08:36 Dose: 2 spray Documented by: Furosemide (Furosemide 40 Mg Tablet) 40 mg PO DAILY [facility] Last Admin: 11/11/20 08:37 Dose: 40 mg Documented by: Glucagon (Glucagon 1 Mg/Ml Syringe) 1 mg IM .X1 PRN PRN Reason: Hypoglycemia Heparin Sodium (Porcine) (Heparin Injection (Vial) 5,000 Unit/Ml Vial) 5,000 unit SC Q8 [facility] Last Admin: 11/11/20 06:39 Dose: 5,000 unit Documented by: Hydralazine HCl (Hydralazine 25 Mg Tablet) 25 mg PO TID [facility] Last Admin: 11/11/20 06:38 Dose: 25 mg Documented by: Sodium Chloride () 250 mls @ 15 mls/hr IV .[id number] PRN PRN Reason: Saline Flush Sodium Chloride () 250 mls @ 15 mls/hr IV .[id number] PRN PRN Reason: Additional IVPB Infusion Insulin Glargine (Insulin Glargine 100 Units/Ml Pen) 40 units SC BREAKFAST [facility] Last Admin: 11/11/20 08:30 Dose: Not Given Documented by: Insulin Glargine (Insulin Glargine 100 Units/Ml Pen) 40 units SC DINNER [facility] Last Admin: 11/10/20 17:05 Dose: 40 u Documented by: Insulin Human Lispro (Insulin Lispro 100 Unit/Ml Insuln.Pen) 5 unit SC BREAKFAST [facility] Last Admin: 11/11/20 08:30 Dose: Not Given Documented by: Insulin Human Lispro (Insulin Lispro 100 Unit/Ml Insuln.Pen) 5 unit SC DINNER [facility] Last Admin: 11/10/20 17:04 Dose: 5 u Documented by: Insulin Human Lispro (Insulin Lispro 100 Unit/Ml Insuln.Pen) 5 unit SC LUNCH [facility] Last Admin: 11/10/20 12:30 Dose: 5 units Documented by: Insulin Human Lispro (Insulin Lispro 100 Unit/Ml Insuln.Pen) 0 unit SC ACHS [facility]; Protocol Last Admin: 11/11/20 07:38 Dose: Not Given Documented by: Isosorbide Mononitrate (Isosorbide Mononitrate 120 Mg Tablet) 120 mg PO DAILY [facility] Last Admin: 11/11/20 08:37 Dose: 120 mg Documented by: Melatonin (Melatonin 3 Mg Tablet) 3 mg PO QHS PRN PRN PRN Reason: INSOMNIA Nystatin (Nystatin Powder 15gm Bottle) 1 applic TOPICAL TID [facility]; Protocol Last Admin: 11/11/20 06:39 Dose: Not Given Documented by: Ondansetron HCl (Ondansetron 4 Mg/2 Ml Vial) 4 mg IV Q8H PRN PRN PRN Reason: NAUSEA/VOMITING Sodium Chloride (0.9% Saline Lock 10 Ml Syringe) 10 - 40 ml IV UD PRN PRN Reason: SALINE FLUSH Last Admin: 11/10/20 10:23 Dose: 20 ml Documented by: Tamsulosin HCl (Tamsulosin Hcl 0.4 Mg Capsule) 0.4 mg PO DAILY@1730 [facility] Last Admin: 11/10/20 17:06 Dose: 0.4 mg Documented by: Medical Necessity - Tobacco Use Smoking Status: Former smoker Tobacco Use: Cigarettes Assessment/Plan All Active Problems (Last Reviewed 10/09/20 @ 15:[address] Destin Cain DO) (HFpEF) heart failure with preserved ejection fraction (Acute) DEVAN (acute kidney injury) (Resolved) 1. Acute on CKD Stage 4. No uremic symptoms. Creatinine 3.58 eGFR 18-20cc/min. 24h urine CRCL 40cc/min. AVF needs revision, resurface to increase length of fistula. Continue strict I/O's. 2. Lymphedema, dependent edema from morbid obesity, pulmonary hypertension. Cautious use of diuretics. lasix 40mg daily for now. 3. DM2 stable 4. HTN stable 5. IMAN on CPAP 6. Pulmonary hypertension 7. Anemia, thrombocytopenia hematology mgmt as outpt
[2020-11-11 11:35] LABS: Bedside Glucose 131 mg/dL (70-110)
[2020-11-11] MEDS: Insulin Lispro 100 UNIT/ML INSULN.PEN SC (12:11)
--- NOTE | 2020-11-11 13:08 | CASEMGMT ---
Patient is ready for discharge to [facility] TCU. Orders were copied. Patient's family member came in to see him before he left. Plan: d/c to [facility] TCU under skilled level of care. Gretel LOVELL
[2020-11-11] MEDS: Nystatin Powder 15gm Bottle 1 APPLIC TOPICAL (14:17)
--- NOTE | 2020-11-11 16:11 | NURSING ---
report called to Sejal in tcu
--- NOTE | 2020-11-12 16:05 | PCM.DC.SUM ---
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 Destin Cain, DO) Chronic diastolic (congestive) heart failure (Chronic) Chronic kidney disease (CKD) (Chronic) Diabetes mellitus (Chronic) Body mass index 45.0-49.9, adult (Chronic) Chronic kidney disease, stage 3 (Chronic) Chronic obstructive pulmonary disease (Chronic) Allergic rhinitis (Chronic) Gout (Chronic) Vitamin D deficiency (Chronic) Tinea corporis (Chronic) Pulmonary hypertension (Chronic) Morbid obesity (Chronic) Anemia (Chronic) Renal failure (Chronic) Thrombocytopenia (Chronic) Diabetes mellitus, type II (Chronic) IMAN (obstructive sleep apnea) (Chronic) Chronic diastolic (congestive) heart failure (Chronic) Secondary pulmonary arterial hypertension (Chronic) Right bundle branch block (RBBB) (Chronic) Essential (primary) hypertension (Chronic) Hyperlipidemia (Chronic) Lymphedema of both lower extremities (Chronic) Hospital Course and Treatment Consultations 11/07/20 11:59 Consult: Onc/Wound/block setter gypsum Routine Comment: Reason for Consult:: BLE Operations: None Procedures: None Summary of Care Provided: The patient is a 70 year old M who was seen in the emergency room at [facility] with a chief complaint of shortness of breath. Patient was not on oxygen at home. On arrival to the emergency room, his O2 sat was 80% on room air. EKG was performed in the emergency room showed a sinus rhythm without any signs of ischemic changes, chest x-ray showed cardiomegaly with some pulmonary vascular congestion consistent with CHF. Beta natruretic peptide was elevated, troponin was unremarkable. Patient was given IV Lasix and admitted to PCU, patient had a recent echocardiogram performed on 10/10/2020 which showed a normal EF and moderate pulmonary hypertension, patient responded to IV diuretic therapy, he was seen by PT and OT and it was felt that he would benefit from a short stay in an inpatient skilled facility. On 11/11/2020, patient was seen and examined: On examination he appeared in good health and spirits. Vital signs as documented. Skin warm and dry and without overt rashes. Neck without JVD, neck was supple, trachea midline, thyroid was normal. Lungs clear bilaterally, normal air movement was noted. Heart exam notable for regular rhythm, normal sounds and absence of murmurs, rubs or gallops. Abdomen unremarkable and without evidence of organomegaly, masses, or abdominal aortic enlargement. Bowel sounds are present, abdomen is not distended. Extremities-severe leg lymphedema was noted bilaterally, no cyanosis was noted, no clubbing was noted. Neuro: Cranial nerves II through XII are grossly intact, no focal motor deficits were noted, sensation to light touch and pinprick intact, motor exam 5/5 throughout. Psych: Patient is alert and oriented x3, he does not appear anxious or depressed, he does not appear agitated. On 11/11/2020, patient was seen and examined for be stable for discharge to TCU for inpatient short-term skilled services. - Physical Exam Vitals/I&O's: Vital Signs Temp Pulse Resp BP Pulse Ox 98.1 F 61 18 142/68 H 81 11/11/20 14:10 11/11/20 14:16 11/11/20 14:10 11/11/20 14:16 11/11/20 14:22 Oxygen Flow Rate (L/min) 2 Oxygen Delivery Method Nasal Cannula Weight: 157.5 kg Body Mass Index (BMI) 49.9 Finger Stick Blood Glucose 131 Intake and Output for Last 24 Hours 11/10/20 11/11/20 11/12/20 23:59 23:59 23:59 Intake Total 995 / 995 875 / 875 Output Total 550 / 550 475 / 475 Balance 445 / 445 400 / 400 Home Medications: Medications to take at Discharge Aspirin [Aspirin, Baby] 81 mg PO DAILY 03/03/15 Fluticasone 0.05% [Flonase Nasal [place]] 2 spray NASAL DAILY 12/31/15 Allopurinol [Zyloprim] 100 mg PO DAILYCM 03/03/19 Carvedilol [Coreg] 50 mg PO BID 03/03/19 Cholecalciferol (VIT D3) [Vitamin D3] 1,000 unit PO SUWESA 03/03/19 Clonidine HCl [Catapres] 0.3 mg PO BID 03/03/19 Isosorbide Mononitrate [Isosorbide Mononitrate ER] 120 mg PO DAILY 03/03/19 Umeclidinium Brm/Vilanterol Tr [Anoro Ellipta 62.5-25 Mcg INH] 1 puff IH DAILY 03/03/19 hydrALAZINE [Apresoline] 25 mg PO TID 03/03/19 atorvastatin 80 mg tablet 80 mg PO QHS #90 tab 04/04/19 Albuterol Inhaler [Ventolin Hfa] 2 puff INHALATION Q6H PRN PRN 04/27/19 Nitroglycerin (INPATIENT USE) [Nitrostat] 0.4 mg SUBLINGUAL Q5M PRN 09/19/20 Torsemide 20 mg PO DAILY 11/07/20 Acetaminophen [Tylenol Tablet] 650 mg PO Q6H PRN PRN tab 11/11/20 Insulin Glargine [Lantus SoloStar Pen] 30 units SC BREAKFAST #1 pen 11/11/20 Insulin Glargine [Lantus SoloStar Pen] 30 units SC DINNER #1 pen 11/11/20 Insulin Lispro [Humalog KwikPen] 5 unit SC BREAKFAST insuln.pen 11/11/20 Insulin Lispro [Humalog KwikPen] 5 unit SC DINNER insuln.pen 11/11/20 Insulin Lispro [Humalog KwikPen] 5 unit SC LUNCH insuln.pen 11/11/20 Nystatin Powder [Mycostatin Powder] 1 applic TOPICAL TID bottle 11/11/20 Tamsulosin HCl [Flomax] 0.4 mg PO DAILY@1730 cap 11/11/20 Following Prescriptions Were Given to Patient: Insulin Glargine [Lantus SoloStar Pen] 30 units SC BREAKFAST #1 pen Insulin Glargine [Lantus SoloStar Pen] 30 units SC DINNER #1 pen Primary Care Physician: Jena-Claude Garcia MD [Primary Care Provider] - Please Follow Up With: Jean-Claude Garcia MD Disposition: [facility] facility Minutes spent on discharge:: 33 Patient Condition:: Stable Medical Necessity - Tobacco Use Smoking Status: Former smoker Tobacco Use: Cigarettes Meaningful Use Info Meaningful Use Diagnoses (Choose all that apply): CHF - CHF YESSY/ARB ordered at discharge?: No Reason YESSY/ARB not ordered?: Worsening renal function Documented LVEF (%): 65 Inpatient E&M: [id number] Disch Hosp
== END 2020-11-11 16:18 | DRG 291 ==
LOC: ED 09:25 → PCU 11:02
PROVIDERS: Internal Medicine Nephrology; Admitting Provider Family Medicine; Emergency Provider Student in an Organized Health Care Education/Training Program; PCP Family Medicine; Visit Provider Internal Medicine
DX: I13.0 Hypertensive heart and chronic kidney disease with heart failure and stage 1 through stage 4 chronic kidney disease, or unspecified chronic kidney disease (principal); I50.33 Acute on chronic diastolic (congestive) heart failure; J96.01 Acute respiratory failure with hypoxia; N18.4 Chronic kidney disease, stage 4 (severe); Z68.42 Body mass index [BMI] 45.0-49.9, adult; E66.01 Morbid (severe) obesity due to excess calories; R53.81 Other malaise; I89.0 Lymphedema, not elsewhere classified; D69.6 Thrombocytopenia, unspecified; E11.22 Type 2 diabetes mellitus with diabetic chronic kidney disease; E78.5 Hyperlipidemia, unspecified; G47.33 Obstructive sleep apnea (adult) (pediatric); Z79.4 Long term (current) use of insulin; Z79.899 Other long term (current) drug therapy; Z87.891 Personal history of nicotine dependence; I27.21 Secondary pulmonary arterial hypertension; D63.1 Anemia in chronic kidney disease; D50.9 Iron deficiency anemia, unspecified; J44.9 Chronic obstructive pulmonary disease, unspecified; M10.9 Gout, unspecified
CPT/HCPCS: 36415; 71045; 80048; 80053; 80069; 82575; 82962; 83880; 84484; 85025; 87426; 93005; 94640; 94760; 94762; 97110; 97116; 97162; 97166; 97530; 97535; 97802; 97803; 99285; A4216; J1940

== ENCOUNTER 2020-11-11 16:33 | Inpatient (IN) | payer MEDICARE, OTHER, SELFPAY ==
[2020-11-07 12:06] VITALS: BMI 49.9
[2020-11-11 16:41] VITALS: BP 152/65; PULSE 62; RESP 18; RESP 22; TEMP 36.5; O2SAT 94; O2SAT 95; BMI 49.8; BMI 49.9
[2020-11-11 17:20] LABS: Bedside Glucose 86 mg/dL (70-110)
[2020-11-11] MEDS: Insulin Lispro 100 UNIT/ML INSULN.PEN SC (17:54)
[2020-11-11] MEDS: Tamsulosin HCl 0.4 MG Capsule PO (17:58)
[2020-11-11] MEDS: Carvedilol 25 MG Tablet 50 MG PO (17:58)
--- NOTE | 2020-11-11 19:25 | PCM.HP.STD ---
Problem List (1) Debility Status: Acute (2) Hypoxia Status: Acute (3) Acute on chronic diastolic congestive heart failure Status: Acute (4) Diabetes mellitus Status: Chronic (5) Body mass index 45.0-49.9, adult Status: Chronic (6) Chronic kidney disease, stage 3 Status: Chronic (7) Chronic obstructive pulmonary disease Status: Chronic (8) Allergic rhinitis Status: Chronic (9) Gout Status: Chronic (10) Vitamin D deficiency Status: Chronic (11) Tinea corporis Status: Chronic (12) Pulmonary hypertension Status: Chronic (13) Anemia Status: Chronic (14) Thrombocytopenia Status: Chronic (15) IMAN (obstructive sleep apnea) Status: Chronic (16) Hyperlipidemia Status: Chronic Qualifiers: History of Present Illness Date of Admission: 11/11/20 Chief Complaint: Here for rehabilitation, strengthening, prior to discharge home alone. 11/07/2020 The patient is a 70 year old Male with below past medical history presented to [facility] Emergency Department with shortness of breath. 11/07/2020 EKG sinus rhythm, left axis deviation, right bundle branch block. 11/07/2020 Chest X-ray cardiomegaly, mild degree congestive heart failure, blunting bilateral costophrenic angles, mild basilar atelectasis. Short of breath, weight gain, lower extremity edema. Chronic dry cough unchanged. Breathing worse with ambulation. Home oxygen at baseline. Pulsox 80% on RA, required 4 liters oxygen to maintain saturation. BNP 434, Troponin negative. Lasix 40MG IV given. 11/07/2020 Admit to Hospital. Lasix 80MG IV twice daily for congestive heart failure. 11/08/2020 Nephrology recommended 24 hour urine collection, no dialysis at this time, left upper extremity AV fistula needs revision prior to use. 11/08/2020 Cr improved to 2.98, but BUN up 110. 11/09/2020 Lasix 20MG IV twice daily. 11/10/2020 IV Lasix stopped. on CPAP for obstructive sleep apnea, compliant at home. PT/OT for [facility]. 11/11/2020 Lasix 40MG PO daily. 11/11/2020 Admit to TCU with debility, here for rehabilitation, strengthening, prior to discharge home alone. Past Medical History Past Medical History (Chronic Problems): Chronic Problems (Last Reviewed 10/09/20 @ 15:[address] Destin Cain DO) Chronic diastolic (congestive) heart failure (Chronic) Chronic kidney disease (CKD) (Chronic) Diabetes mellitus (Chronic) Body mass index 45.0-49.9, adult (Chronic) Chronic kidney disease, stage 3 (Chronic) Chronic obstructive pulmonary disease (Chronic) Allergic rhinitis (Chronic) Gout (Chronic) Vitamin D deficiency (Chronic) Tinea corporis (Chronic) Pulmonary hypertension (Chronic) Morbid obesity (Chronic) Anemia (Chronic) Renal failure (Chronic) Thrombocytopenia (Chronic) Diabetes mellitus, type II (Chronic) IMAN (obstructive sleep apnea) (Chronic) Chronic diastolic (congestive) heart failure (Chronic) Secondary pulmonary arterial hypertension (Chronic) Right bundle branch block (RBBB) (Chronic) Essential (primary) hypertension (Chronic) Hyperlipidemia (Chronic) Lymphedema of both lower extremities (Chronic) Medical History: Medical History (Last Reviewed 10/09/20 @ 15:[address] Destin Cain DO) Chronic diastolic (congestive) heart failure (Chronic) I50.32 Secondary pulmonary arterial hypertension (Chronic) I27.21 Right bundle branch block (RBBB) (Chronic) I45.10 Essential (primary) hypertension (Chronic) I10 Hyperlipidemia (Chronic) E78.5 Lymphedema of both lower extremities (Chronic) I89.0 BMI 33.0-33.9,adult Z68.33 Non-pressure ulcer of right lower extremity with fat layer exposed L97.912 Traumatic open wound of right lower leg with delayed healing S81.801D Type 2 diabetes mellitus E11.9 DEVAN (acute kidney injury) (Resolved) N17.9 Gastrointestinal bleed K92.2 Syncope and collapse R55 CKD (chronic kidney disease), stage III N18.3 Traumatic open wound of right lower leg (Inactive) S81.801A Wound of right leg (Inactive) S81.801A Allergies ARB-Angiotensin Receptor Antagonist Allergy (Verified 11/07/20 10:24) WORSENS RENAL FUNCTION WORSENS RENAL FUNCTION amoxicillin Adverse Reaction (Verified 11/07/20 10:24) Upset Stomach Home Medications: Ambulatory Orders Medication Instructions Recorded Aspirin [Aspirin, Baby] 81 mg PO DAILY 03/03/15 Fluticasone 0.05% [Flonase Nasal 2 spray NASAL DAILY 12/31/15 Marquez] Allopurinol [Zyloprim] 100 mg PO DAILYCM 03/03/19 Carvedilol [Coreg] 50 mg PO BID 03/03/19 Cholecalciferol (VIT D3) [Vitamin 1,000 unit PO SUWESA 03/03/19 D3] Clonidine HCl [Catapres] 0.3 mg PO BID 03/03/19 Isosorbide Mononitrate [Isosorbide 120 mg PO DAILY 03/03/19 Mononitrate ER] Umeclidinium Brm/Vilanterol Tr 1 puff IH DAILY 03/03/19 [Anoro Ellipta 62.5-25 Mcg INH] hydrALAZINE [Apresoline] 25 mg PO TID 03/03/19 atorvastatin 80 mg tablet 80 mg PO QHS #90 tab 04/04/19 Albuterol Inhaler [Ventolin Hfa] 2 puff INHALATION Q6H PRN PRN 04/27/19 Nitroglycerin (INPATIENT USE) 0.4 mg SUBLINGUAL Q5M PRN 09/19/20 [Nitrostat] Torsemide 20 mg PO DAILY 11/07/20 Acetaminophen [Tylenol Tablet] 650 mg PO Q6H PRN PRN tab 11/11/20 Insulin Glargine [Lantus SoloStar 30 units SC BREAKFAST #1 pen 11/11/20 Pen] Insulin Glargine [Lantus SoloStar 30 units SC DINNER #1 pen 11/11/20 Pen] Insulin Lispro [Humalog KwikPen] 5 unit SC BREAKFAST insuln.pen 11/11/20 Insulin Lispro [Humalog KwikPen] 5 unit SC DINNER insuln.pen 11/11/20 Insulin Lispro [Humalog KwikPen] 5 unit SC LUNCH insuln.pen 11/11/20 Nystatin Powder [Mycostatin Powder] 1 applic TOPICAL TID bottle 11/11/20 Tamsulosin HCl [Flomax] 0.4 mg PO DAILY@1730 cap 11/11/20 Surgical History: Surgical History (Last Reviewed 10/09/20 @ 15:[address] Destin Cain, DO) A-V fistula Onset Date: 05/09/20 I77.0 LUE History of cataract surgery Z98.49 Surgical History: cataract, - - AVF left radiocephalic, nasal cyst removal. Psychiatric History: No pertinent psych hx Lives: Alone Smoking Status: Former smoker Tobacco Use: Non-smoker Alcohol: None Drugs: None - *Family History Sibling Family History: Family History (Last Reviewed 10/09/20 @ 15:[address] Destin Cain DO) Other Diabetes Heart disease Hypertension History Items: Heart Disease Paternal Family History: Family History (Last Reviewed 10/09/20 @ 15:[address] Destin Cain DO) Other Diabetes Heart disease Hypertension History Items: Cancer - Other with a history of possibly lymphoma., Diabetes Maternal Family History: Family History (Last Reviewed 10/09/20 @ 15:[address] Destin Cain DO) Other Diabetes Heart disease Hypertension History Items: Diabetes, Heart Disease, Hypertension Review of Systems Constitutional: Denies: Chills, Fever, Weight Change HEENT: Denies: Head Aches, Sinus Congestion, Sinus Drainage Cardiovascular: Denies: Chest Pain, Palpitations Respiratory: Denies: Cough, Shortness of breath at rest, Sputum production Gastrointestinal: Denies: Abdominal Pain, Nausea, Vomiting Genitourinary: Denies: Dysuria Musculoskeletal: Denies: Joint Pain, Joint Tenderness Skin: Denies: Rash, Wounds Neurological: Denies: Numbness, Tingling, Focal weakness Psychiatric: Denies: Anxiety, Depression, Homicidal Ideations, Suicidal Ideations Hematologic/ Lymphatic: Denies: Easy Bruising, Easy Bleeding VTE Information - Inpt Only VTE Present on Admission: No VTE Mechan Device Prophylaxis: Knee High RISHABH Hose VTE Pharm Prophylaxis ordered?: No Reason prophylaxis not ordered:: Medical Contraindication Patient Problems: Active and Suspected Problems (Last Reviewed 10/09/20 @ 15:[address] Destin Cain DO) Debility (Acute) Hypoxia (Acute) Acute on chronic diastolic congestive heart failure (Acute) - Physical Exam Vitals/I&O's: Vital Signs Temp Pulse Resp BP Pulse Ox 97.7 F L 62 18 152/65 H 94 11/11/20 16:41 11/11/20 16:41 11/11/20 16:41 11/11/20 16:41 11/11/20 16:41 Oxygen Flow Rate (L/min) 2 Oxygen Delivery Method Nasal Cannula Weight: 157.623 kg Body Mass Index (BMI) 49.8 Finger Stick Blood Glucose 131 General: Alert, Oriented x3, Cooperative HEENT: Atraumatic, PERRLA, EOMI, Normocephalic Neck: Supple, No JVD, Negative Carotid Bruits Lungs: Clear to auscultation, Normal air movement Cardiovascular: Regular rate, No murmurs Abdomen: Bowel Sounds Present, Soft, Non Tender Extremities: No edema, Capillary Refill Less than 3 Seconds, - - Left forearm AV fistula. Skin: No rashes, No breakdown Musculoskeletal: No Tenderness to Palpation of Joints or Extremities Neurological: Cranial nerves II-XII grossly intact Psych/Mental Status: Normal Affect, Appropriate Laboratory Results 11/11/20 17:16: POC Glucose 86 Current Medications Acetaminophen (Acetaminophen 325 Mg Tablet) 650 mg PO Q6H PRN PRN PRN Reason: PAIN 1-10 Albuterol Sulfate (Albuterol Sulfate 8 Gm Inhaler (60 Puffs)) 2 puff INHALATION Q6H PRN PRN PRN Reason: SOB &/OR WHEEZING Allopurinol (Allopurinol 100 Mg Tablet) 100 mg PO DAILYCM [facility] Aspirin (Aspirin 81 Mg Tab.Chew) 81 mg PO DAILY@0800 [facility] Atorvastatin Calcium (Atorvastatin Calcium 80 Mg Tablet) 80 mg PO QHS [facility] Calamine/Phenol (Menthol/Lanolin/Calamine/Znox 113 Gm Tube) 1 applic TOPICAL BID [facility]; Protocol Carvedilol (Carvedilol 25 Mg Tablet) 50 mg PO BID [facility] Last Admin: 11/11/20 17:58 Dose: 50 mg Documented by: Cholecalciferol (Cholecalciferol (Vit D3) 1,000 Unit (25mcg)) 1,000 unit PO SuWeSa@0600 [facility] Fluticasone Propionate (Fluticasone 0.05% 1 Marquez Nasal.Sry) 2 spray NASAL DAILY [facility] Hydralazine HCl (Hydralazine 25 Mg Tablet) 25 mg PO TID [facility] Insulin Glargine (Insulin Glargine 100 Units/Ml Pen) 30 units SC BREAKFAST [facility] Insulin Glargine (Insulin Glargine 100 Units/Ml Pen) 30 units SC DINNER [facility] Last Admin: 11/11/20 19:17 Dose: Not Given Documented by: Insulin Human Lispro (Insulin Lispro 100 Unit/Ml Insuln.Pen) 5 unit SC BREAKFAST [facility] Insulin Human Lispro (Insulin Lispro 100 Unit/Ml Insuln.Pen) 5 unit SC DINNER [facility] Last Admin: 11/11/20 17:54 Dose: 5 u Documented by: Insulin Human Lispro (Insulin Lispro 100 Unit/Ml Insuln.Pen) 5 unit SC LUNCH FARIDEH Insulin Human Lispro (Insulin Lispro 100 Unit/Ml Insuln.Pen) 0 unit SC ACHS [facility]; Protocol Isosorbide Mononitrate (Isosorbide Mononitrate 120 Mg Tablet) 120 mg PO DAILY [facility] Nitroglycerin (Nitroglycerin (Inpatient Use) 0.4 Mg Tab.Subl) 0.4 mg SUBLINGUAL Q5M PRN PRN Reason: CARDIAC/CHEST PAIN Non-Formulary Medication (Clonidine Hcl [Catapres]) 0.3 mg PO BID [facility] Non-Formulary Medication (Umeclidinium Brm/Vilanterol Tr) 1 puff IH DAILY [facility] Nystatin (Nystatin Powder 15gm Bottle) 1 applic TOPICAL TID [facility]; Protocol Sodium Chloride (0.9% Saline Lock 10 Ml Syringe) 10 - 40 ml IV UD PRN PRN Reason: SALINE FLUSH Tamsulosin HCl (Tamsulosin Hcl 0.4 Mg Capsule) 0.4 mg PO DAILY@1730 [facility] Last Admin: 11/11/20 17:58 Dose: 0.4 mg Documented by: Torsemide (Torsemide 20 Mg Tablet) 20 mg PO DAILY [facility] Tuberculin PPD (Tuberculin,Purif.Prot.Deriv. 50 Tu/Ml Vial) 5 tu ID [id number] ONE Stop: 11/12/20 10:01 Tuberculin PPD (Tuberculin,Purif.Prot.Deriv. 50 Tu/Ml Vial) 5 tu ID [id number] ONE Stop: 11/19/20 10:01 Assessment/Plan All Active Problems (Last Reviewed 10/09/20 @ 15:[address] Destin Cain, DO) (HFpEF) heart failure with preserved ejection fraction (Acute) Debility (Acute) Hypoxia (Acute) Acute on chronic diastolic congestive heart failure (Acute) DEVAN (acute kidney injury) (Resolved) 70 year old male with below past medical history hospitalized for acute on chronic diastolic congestive heart failure, complicated by chronic kidney disease, admitted to TCU with debility, here for rehabilitation, strengthening, prior to discharge home alone. Debility - PT/OT. Pain - Tylenol 1000MG Q6H PRN pain (1-10). Bowel - Miralax 17GM daily, Senna/colace 1 tablet BID, MOM 30ML daily PRN, Dulcolax 10MG NV daily PRN. Adult immunization - Administer Prevnar 13, Pneumovax 23, Fluzone, COVID19 vaccine as appropriate. DVT prophylaxis - Hold, thrombocytopenia. COPD - Anoro 1 puff daily (or formulary equivalent), Albuterol MDI 2 puff Q6H PRN. Gout - Allopurinol 100MG daily. Hyperlipidemia - Atorvastatin 80MG QHS. Acute on chronic diastolic congestive heart failure - Coreg 50MG BID, Imdur 120MG daily, Hydralazine 25MG TID, Torsemide 20MG daily. Coronary Artery Disease - Coreg 50MG BID, Imdur 120MG daily, Aspirin 81MG daily, NTG 0.4MG SL Q5M PRN. Vitamin D deficiency - D3 1000IU 3x/week. Hypertension - Coreg 50MG BID, Hydralazine 25MG TID, Clonidine 0.3MG BID. Allergic Rhinitis - Flonase 2 sprays nasal daily. Diabetes Mellitus II - Lantus 30 units QAM, Humalog 5 units TIDAC. Skin irritation - Calmoseptine topical BID. Tinea Corporis - Nystatin powder topical TID. BPH - Tamsulosin 0.4MG daily.
[2020-11-11 21:21] LABS: Bedside Glucose 113 mg/dL (70-110)
[2020-11-11 22:04] VITALS: PULSE 62
[2020-11-11] MEDS: Atorvastatin Calcium 80 MG Tablet PO (22:04)
[2020-11-11] MEDS: Menthol/Lanolin/Calamine/Znox 113 GM Tube 1 APPLIC TOPICAL (22:04)
[2020-11-11] MEDS: hydrALAZINE 25 MG Tablet PO (22:04)
[2020-11-11] MEDS: Nystatin Powder 15gm Bottle 1 APPLIC TOPICAL (22:05)
--- NOTE | 2020-11-11 22:18 | NURSING ---
Patient's stated he had a wallet in his coat. This nurse counted $132.00 [place] with patient. Patients wallet was locked in med-box in room.
[2020-11-12] VITALS (7 sets, daily range): BP systolic 138–153; BP diastolic 51–61; PULSE 59–73; RESP 18–24; TEMP 36.8–37; O2SAT 92–98
--- NOTE | 2020-11-12 04:28 | NURSING ---
Addendum entered by Emelyn Swain 11/12/20 05:36: Patient refusing to use urinal since oxygen keeps dropping. Assisted patient to side of bed with 4 LPM on oxygen via nasal cannula, oxygen dropped to 84%. After 4 minutes sitting on bedside patients oxygen increased to 94%. Patient sitting on side of bed at this time dry heaving. Patient states this has been going of for about [address] notify Dr[address] Mchugh. RN is aware. Original Note: Patient's Oxygen is dropping with ambulation. Oxygen increased to 4 LPM via nasal cannula. CPAP is on at this time.
[2020-11-12 05:36] LABS: Absolute Neutrophil Count 6.5 X10^3/uL (2.0-7.7); Basophil# 0.02 X10^3/uL; Basophil% 0.3 % (0-1); Eosinophil# 0.13 X10^3/uL; Eosinophils% 1.8 % (0-5); Hematocrit 30.9 % (40-54); Hemoglobin 9.5 g/dL (13.0-16.5); Lymphocyte % 2.7 % (19-41); Mean Corp Hgb Conc 30.7 g/dL (32-36); Mean Corpuscular Hgb 31.7 pg (27.0-32.0); Monocyte# 0.56 X10^3/uL; Monocyte% 7.6 % (0-10); NRBC Flagged by Analyzer 0 % (0-5); Neutrophil # 6.45 X10^3/uL (2.7-7.7); Neutrophil % 87.3 % (47-70); POSITIVE COUNT YES; POSITIVE DIFFERENTIAL YES; Platelet Count 72 K/mm3 (150-450); RBC Distribution Width CV 16.7 % (11.6-14.6); RBC Distribution Width SD 62.5 fl (35.1-43.9); White Blood Count 7.4 K/mm3 (4.4-11.0)
[2020-11-12 05:37] LABS: Differential Indicated SCAN CRITERIA MET
[2020-11-12 06:10] LABS: Anion Gap 6 (5-15); BUN 119 mg/dL (7-18); BUN/Creat Ratio 38.5 RATIO (10-20); Calcium,Total 8.4 mg/dL (8.5-10.1); Chloride 108 mmol/L (98-107); Creatinine, Serum 3.09 mg/dL (0.70-1.30); EST Glomerular Filtration Rate 21 mL/min (>60); Est Glom Filt Rate - Afr Amer 26 mL/min (>60); Estimated Creatinine Clearance 22.31 ml/min; Glucose 118 mg/dL (74-106); Potassium 5.2 mmol/L (3.5-5.1); Sodium Level 139 mmol/L (136-145)
[2020-11-12 06:15] LABS: Bedside Glucose 132 mg/dL (70-110)
[2020-11-12] MEDS: Albuterol Sulfate 8 gm Inhaler (60 puffs) 2 PUFF INHALATION (06:40)
[2020-11-12] MEDS: cloNIDine HCl 0.1 MG Tablet 0.3 MG PO ×2 (08:00→17:30)
[2020-11-12] MEDS: Furosemide 40 MG Tablet PO (08:01)
[2020-11-12] MEDS: Carvedilol 25 MG Tablet 50 MG PO ×2 (08:01→17:30)
[2020-11-12] MEDS: Senna/Docusate Sodium 1 Tablet PO ×2 (08:01→17:28)
[2020-11-12] MEDS: hydrALAZINE 25 MG Tablet PO ×3 (08:01→21:12)
[2020-11-12] MEDS: Allopurinol 100 MG Tablet PO (08:02)
[2020-11-12] MEDS: Polyethylene Glycol 3350 17 GM PACKET PO (08:02)
[2020-11-12] MEDS: Aspirin 81 MG TAB.CHEW PO (08:02)
[2020-11-12] MEDS: Umeclidinium Bromide Inhaler 1 PUFF IH (08:02)
[2020-11-12] MEDS: Fluticasone 0.05% 1 SPRAY NASAL.SRY 2 SPRAY NASAL (08:03)
[2020-11-12] MEDS: Menthol/Lanolin/Calamine/Znox 113 GM Tube 1 APPLIC TOPICAL ×2 (08:10→17:31)
[2020-11-12] MEDS: Nystatin Powder 15gm Bottle 1 APPLIC TOPICAL ×3 (08:11→21:13)
--- NOTE | 2020-11-12 08:42 | PCA ---
Pt refused breakfast, Feeling ill
[2020-11-12] MEDS: Sodium Polystyrene Sulfonate 15 GM/60 ML UDC 30 GM PO (09:17)
--- NOTE | 2020-11-12 09:33 | CASEMGMT ---
Addendum entered by Alka Davis 11/12/20 10:12: Social Work Referrals faxed to [facility] for nursing home care assessment and Meals on Wheels. RAINE Strauss Original Note: Social Work SW spoke w/pt in regard to code status, pt confirmed code status as DNRCC. MOLST form reviewed, communication to doctor, form placed in chart. SW completed palliative care assessment, spoke w/pt, pt declining referral at this time. Pt open to [facility], home health, Meals on Wheels, and referral to [facility] for services. SW will assist w/referrals for pt as appropriated. RAINE Strauss
[2020-11-12] MEDS: Tuberculin,Purif.prot.deriv. 50 TU/ML Vial 5 ML ID (10:35)
[2020-11-12 11:06] LABS: Bedside Glucose 171 mg/dL (70-110)
[2020-11-12] MEDS: Insulin Lispro 100 UNIT/ML INSULN.PEN SC ×2 (12:03→17:29)
--- NOTE | 2020-11-12 13:33 | PCA ---
Confirmed with office. Appointment scheduled for 11/17/20 @ 10:30am for an iron transfusion. Transportation set up by w/c. Patient updated.
--- NOTE | 2020-11-12 14:34 | PCM.PN.RX ---
<Marilyn Saenz - Last Filed: 11/12/20 14:34> Progress Note - Pharmacy Subjective: TCU Admission Objective: Allergies ARB-Angiotensin Receptor Antagonist Allergy (Verified 11/07/20 10:24) WORSENS RENAL FUNCTION WORSENS RENAL FUNCTION amoxicillin Adverse Reaction (Verified 11/07/20 10:24) Upset Stomach Current Medications Generic Name Dose Route Start Last Admin Trade Name Freq PRN Reason Stop Dose Admin Acetaminophen 1,000 mg 11/11/20 19:59 Acetaminophen 500 Mg Tablet PO Q6H PRN PRN Pain Score 1-10 Albuterol Sulfate 2 puff 11/11/20 16:50 11/12/20 06:40 Albuterol Sulfate 8 Gm Inhaler (60 Puffs) INHALATION 2 puff Q6H PRN PRN Administration SOB &/OR WHEEZING Albuterol Sulfate 2 puff 11/11/20 21:00 Albuterol Sulfate 8 Gm Inhaler (60 Puffs) INHALATION Q6HWA.RT FARIDEH Allopurinol 100 mg 11/12/20 08:00 11/12/20 08:02 Allopurinol 100 Mg Tablet PO 100 mg DAILYCM FARIDEH Administration Aspirin 81 mg 11/12/20 08:00 11/12/20 08:02 Aspirin 81 Mg Tab.Chew PO 81 mg DAILY@0800 FARIDEH Administration Atorvastatin Calcium 80 mg 11/11/20 22:00 11/11/20 22:04 Atorvastatin Calcium 80 Mg Tablet PO 80 mg QHS [facility] Administration Bisacodyl 10 mg 11/11/20 19:59 Bisacodyl 10 Mg Suppository RC DAILY PRN Constipation Calamine/Phenol 1 applic 11/11/20 18:00 11/12/20 08:10 Menthol/Lanolin/Calamine/Znox 113 Gm Tube TOPICAL 1 applicatio BID [facility] Administration Protocol Carvedilol 50 mg 11/11/20 18:00 11/12/20 08:01 Carvedilol 25 Mg Tablet PO 50 mg BID [facility] Administration Cholecalciferol 1,000 unit 11/12/20 06:00 11/12/20 08:01 Cholecalciferol (Vit D3) 1,000 Unit (25mcg) PO 1,000 unit SuWeSa@0600 FARIDEH Administration Clonidine 0.3 mg 11/12/20 06:00 11/12/20 08:00 Clonidine Hcl 0.1 Mg Tablet PO 0.3 mg BID FARIDEH Administration Fluticasone Propionate 2 spray 11/12/20 06:00 11/12/20 08:03 Fluticasone 0.05% 1 [place] Nasal.Sry NASAL 2 spray DAILY FARIDEH Administration Furosemide 40 mg 11/12/20 06:00 11/12/20 08:01 Furosemide 40 Mg Tablet PO 40 mg DAILY FARIDEH Administration Hydralazine HCl 25 mg 11/11/20 22:00 11/12/20 08:01 Hydralazine 25 Mg Tablet PO 25 mg TID [facility] Administration Insulin Glargine 30 units 11/12/20 08:00 11/12/20 08:09 Insulin Glargine 100 Units/Ml Pen SC 30 units BREAKFAST [facility] Administration Insulin Glargine 30 units 11/11/20 17:00 11/11/20 19:17 Insulin Glargine 100 Units/Ml Pen SC Not Given DINNER [facility] Insulin Human Lispro 5 unit 11/12/20 08:00 11/12/20 08:44 Insulin Lispro 100 Unit/Ml Insuln.Pen SC Not Given BREAKFAST [facility] Insulin Human Lispro 5 unit 11/11/20 17:00 11/11/20 17:54 Insulin Lispro 100 Unit/Ml Insuln.Pen SC 5 u DINNER [facility] Administration Insulin Human Lispro 5 unit 11/12/20 12:00 11/12/20 12:03 Insulin Lispro 100 Unit/Ml Insuln.Pen SC 5 u LUNCH [facility] Administration Isosorbide Mononitrate 120 mg 11/12/20 06:00 11/12/20 07:59 Isosorbide Mononitrate 120 Mg Tablet PO 120 mg DAILY [facility] Administration Magnesium Hydroxide 30 ml 11/11/20 19:58 Magnesium Hydroxide 30 Ml Udc PO DAILY PRN Constipation Nitroglycerin 0.4 mg 11/11/20 16:50 Nitroglycerin (Inpatient Use) 0.4 Mg Tab.Subl SUBLINGUAL Q5M PRN CARDIAC/CHEST PAIN Nystatin 1 applic 11/11/20 22:00 11/12/20 08:11 Nystatin Powder 15gm Bottle TOPICAL 1 applicatio TID [facility] Administration Protocol Polyethylene Glycol 17 gm 11/12/20 06:00 11/12/20 08:02 Polyethylene Glycol 3350 17 Gm Packet PO 17 gm DAILY [facility] Administration Senna/Docusate Sodium 1 tablet 11/12/20 06:00 11/12/20 08:01 Senna/Docusate Sodium 1 Tablet PO 1 tablet BID [facility] Administration Sodium Chloride 10 - 40 ml 11/11/20 17:55 0.9% Saline Lock 10 Ml Syringe IV UD PRN SALINE FLUSH Tamsulosin HCl 0.4 mg 11/11/20 17:30 11/11/20 17:58 Tamsulosin Hcl 0.4 Mg Capsule PO 0.4 mg DAILY@1730 FARIDE[facility] Administration Tuberculin PPD 5 tu 11/19/20 10:00 Tuberculin,Purif.Prot.Deriv. 50 Tu/Ml Vial ID 11/19/20 10:01 X1 ONE Umeclidinium [place] 1 puff 11/12/20 06:00 11/12/20 08:02 Umeclidinium [place] Inhaler IH 1 puff DAILY FARIDEH Administration Problem List (Last Reviewed 10/09/20 @ 15:[address] Destin Cain, DO) Debility (Acute) Hypoxia (Acute) Acute on chronic diastolic congestive heart failure (Acute) Diabetes mellitus (Chronic) Body mass index 45.0-49.9, adult (Chronic) Chronic kidney disease, stage 3 (Chronic) Chronic obstructive pulmonary disease (Chronic) Allergic rhinitis (Chronic) Gout (Chronic) Vitamin D deficiency (Chronic) Tinea corporis (Chronic) Pulmonary hypertension (Chronic) Anemia (Chronic) Thrombocytopenia (Chronic) IMAN (obstructive sleep apnea) (Chronic) Hyperlipidemia (Chronic) Vital Signs Temp Pulse Resp BP Pulse Ox 98.6 F 73 24 H 153/61 H 96 11/12/20 05:00 11/12/20 08:01 11/12/20 06:39 11/12/20 06:39 11/12/20 06:39 Oxygen Flow Rate (L/min) 4 Oxygen Delivery Method Nasal Cannula Weight: 157.623 kg Body Mass Index (BMI) 49.8 Finger Stick Blood Glucose 131 Sodium 139 mmol/L (136-145) 11/12/20 05:10 Potassium 5.2 mmol/L (3.5-5.1) H 11/12/20 05:10 Chloride 108 mmol/L (98-107) H 11/12/20 05:10 Carbon Dioxide 25.0 mmol/L (21.0-32.0) 11/12/20 05:10 Anion Gap 6 (5-15) 11/12/20 05:10 BUN 119 mg/dL (7-18) H* 11/12/20 05:10 Creatinine 3.09 mg/dL (0.70-1.30) H 11/12/20 05:10 Est GFR (MDRD) Af Amer 26 mL/min (>60) L 11/12/20 05:10 Est GFR (MDRD) Non-Af 21 mL/min (>60) L 11/12/20 05:10 BUN/Creatinine Ratio 38.5 RATIO (10-20) H 11/12/20 05:10 Glucose 118 mg/dL (74-106) H 11/12/20 05:10 Assessment/Plan: 1. Pain: acetaminophen 1000mg PO Q6H PRN pain (-07/12). Please continue to monitor for increased pain and PRN usage. 2. CHF/CAD/HTN: carvedilol 50mg PO BID, isosorbide mononitrate 120mg PO daily, hydralazine 25mg PO TID, aspirin 81mg PO daily, nitroglycerin 0.4mg SL Q5M PRN, clonidine 0.3mg PO BID, furosemide 40mg PO daily. Please continue to monitor BP (last 153/61), HR (last 73), potassium level (last 5.2mmol/L), S/S of bleeding, renal function and chest pain. 3. COPD: Umeclidinium bromide (Incruse Ellipta Inhaler) 1 puff PO daily and albuterol MDI 2 puffs Q6HWA.RT and 2 puffs Q4H PRN for SOB and/or wheezing. Please continue to monitor for worsening of breathing, tachycardia and PRN usage. *4. Hyperlipidemia: atorvastatin 80mg PO QHS. Please continue to monitor LFTs and for muscle pain. Please consider ordering a lipid panel now and then annually as clinically appropriate. Thanks. 5. Gout: allopurinol 100mg PO daily. Please continue to monitor renal function and S/S of gout. *6. Diabetes Mellitus II: insulin glargine 30 units SC BID and insulin lispro 5 units SC TIDCM. Please continue to monitor blood sugars and S/S of hypoglycemia. Please consider ordering a hemoglobin A1c. Last A1c from 03/2019. 7. BPH: tamsulosin 0.4mg PO daily. Please continue to monitor for increased urine retention and for S/S of hypotension. 8. Allergic Rhinitis: fluticasone 2 sprays in each nostril daily. Please continue to rinse mouth after usage and monitor for throat irritation. *9. Vitamin D deficiency: cholecalciferol 1000IU 3x/week. Please consider ordering a vitamin D level. Patient does not have one in chart. Thanks. Psychotropic Medications: None Unnecessary Medications: None Bowel Regimen: Miralax 17gm PO daily, senna/docusate 1T PO BID, MOM 30mL PO daily PRN constipation, Bisacodyl 10mg RC daily PRN constipation. Please continue to monitor for constipation and PRN usage. Date of Note:: 11/12/20 - Provider Comments Provider responsibility: Provider responsible to enter orders to implement recommendations <Robin Mchugh Chi - Last Filed: 11/12/20 16:05> Progress Note - Pharmacy Subjective: [] Objective: Allergies ARB-Angiotensin Receptor Antagonist Allergy (Verified 11/07/20 10:24) WORSENS RENAL FUNCTION WORSENS RENAL FUNCTION amoxicillin Adverse Reaction (Verified 11/07/20 10:24) Upset Stomach Current Medications Generic Name Dose Route Start Last Admin Trade Name Freq PRN Reason Stop Dose Admin Acetaminophen 1,000 mg 11/11/20 19:59 Acetaminophen 500 Mg Tablet PO Q6H PRN PRN Pain Score 1-10 Albuterol Sulfate 2 puff 11/11/20 16:50 11/12/20 06:40 Albuterol Sulfate 8 Gm Inhaler (60 Puffs) INHALATION 2 puff Q6H PRN PRN Administration SOB &/OR WHEEZING Albuterol Sulfate 2 puff 11/11/20 21:00 Albuterol Sulfate 8 Gm Inhaler (60 Puffs) INHALATION Q6HWA.RT FARIDEH Allopurinol 100 mg 11/12/20 08:00 11/12/20 08:02 Allopurinol 100 Mg Tablet PO 100 mg DAILYCM FARIDEH Administration Aspirin 81 mg 11/12/20 08:00 11/12/20 08:02 Aspirin 81 Mg Tab.Chew PO 81 mg DAILY@0800 FARIDEH Administration Atorvastatin Calcium 80 mg 11/11/20 22:00 11/11/20 22:04 Atorvastatin Calcium 80 Mg Tablet PO 80 mg QHS FARIDE[facility] Administration Bisacodyl 10 mg 11/11/20 19:59 Bisacodyl 10 Mg Suppository RC DAILY PRN Constipation Calamine/Phenol 1 applic 11/11/20 18:00 11/12/20 08:10 Menthol/Lanolin/Calamine/Znox 113 Gm Tube TOPICAL 1 applicatio BID FARIDEH Administration Protocol Carvedilol 50 mg 11/11/20 18:00 11/12/20 08:01 Carvedilol 25 Mg Tablet PO 50 mg BID FARIDEH Administration Cholecalciferol 1,000 unit 11/12/20 06:00 11/12/20 08:01 Cholecalciferol (Vit D3) 1,000 Unit (25mcg) PO 1,000 unit SuWeSa@0600 FARIDEH Administration Clonidine 0.3 mg 11/12/20 06:00 11/12/20 08:00 Clonidine Hcl 0.1 Mg Tablet PO 0.3 mg BID [facility]IDE[facility] Administration Fluticasone Propionate 2 spray 11/12/20 06:00 11/12/20 08:03 Fluticasone 0.05% 1 [place] Nasal.Sry NASAL 2 spray DAILY [facility]IDE[facility] Administration Furosemide 40 mg 11/12/20 06:00 11/12/20 08:01 Furosemide 40 Mg Tablet PO 40 mg DAILY FARIDE[facility] Administration Hydralazine HCl 25 mg 11/11/20 22:00 11/12/20 14:39 Hydralazine 25 Mg Tablet PO 25 mg TID [facility] Administration Insulin Glargine 30 units 11/12/20 08:00 11/12/20 08:09 Insulin Glargine 100 Units/Ml Pen SC 30 units BREAKFAST [facility] Administration Insulin Glargine 30 units 11/11/20 17:00 11/11/20 19:17 Insulin Glargine 100 Units/Ml Pen SC Not Given DINNER [facility] Insulin Human Lispro 5 unit 11/12/20 08:00 11/12/20 08:44 Insulin Lispro 100 Unit/Ml Insuln.Pen SC Not Given BREAKFAST [facility] Insulin Human Lispro 5 unit 11/11/20 17:00 11/11/20 17:54 Insulin Lispro 100 Unit/Ml Insuln.Pen SC 5 u DINNER [facility] Administration Insulin Human Lispro 5 unit 11/12/20 12:00 11/12/20 12:03 Insulin Lispro 100 Unit/Ml Insuln.Pen SC 5 u LUNCH [facility] Administration Isosorbide Mononitrate 120 mg 11/12/20 06:00 11/12/20 07:59 Isosorbide Mononitrate 120 Mg Tablet PO 120 mg DAILY FARIDE[facility] Administration Magnesium Hydroxide 30 ml 11/11/20 19:58 Magnesium Hydroxide 30 Ml Udc PO DAILY PRN Constipation Nitroglycerin 0.4 mg 11/11/20 16:50 Nitroglycerin (Inpatient Use) 0.4 Mg Tab.Subl SUBLINGUAL Q5M PRN CARDIAC/CHEST PAIN Nystatin 1 applic 11/11/20 22:00 11/12/20 14:39 Nystatin Powder 15gm Bottle TOPICAL 1 applicatio TID [facility]ARIDE[facility] Administration Protocol Polyethylene Glycol 17 gm 11/12/20 06:00 11/12/20 08:02 Polyethylene Glycol 3350 17 Gm Packet PO 17 gm DAILY [facility]IDE[facility] Administration Senna/Docusate Sodium 1 tablet 11/12/20 06:00 11/12/20 08:01 Senna/Docusate Sodium 1 Tablet PO 1 tablet BID [facility] Administration Sodium Chloride 10 - 40 ml 11/11/20 17:55 0.9% Saline Lock 10 Ml Syringe IV UD PRN SALINE FLUSH Tamsulosin HCl 0.4 mg 11/11/20 17:30 11/11/20 17:58 Tamsulosin Hcl 0.4 Mg Capsule PO 0.4 mg DAILY@1730 FARIDEH Administration Tuberculin PPD 5 tu 11/19/20 10:00 Tuberculin,Purif.Prot.Deriv. 50 Tu/Ml Vial ID 11/19/20 10:01 X1 ONE Umeclidinium [place] 1 puff 11/12/20 06:00 11/12/20 08:02 Umeclidinium [place] Inhaler IH 1 puff DAILY FARIDEH Administration Problem List (Last Reviewed 10/09/20 @ 15:[address] Destin Cain, DO) Debility (Acute) Hypoxia (Acute) Acute on chronic diastolic congestive heart failure (Acute) Diabetes mellitus (Chronic) Body mass index 45.0-49.9, adult (Chronic) Chronic kidney disease, stage 3 (Chronic) Chronic obstructive pulmonary disease (Chronic) Allergic rhinitis (Chronic) Gout (Chronic) Vitamin D deficiency (Chronic) Tinea corporis (Chronic) Pulmonary hypertension (Chronic) Anemia (Chronic) Thrombocytopenia (Chronic) IMAN (obstructive sleep apnea) (Chronic) Hyperlipidemia (Chronic) Vital Signs Temp Pulse Resp BP Pulse Ox 98.2 F 64 18 138/51 H 98 11/12/20 14:53 11/12/20 14:53 11/12/20 14:53 11/12/20 14:53 11/12/20 14:53 Oxygen Flow Rate (L/min) 4 Oxygen Delivery Method Nasal Cannula Weight: 157.623 kg Body Mass Index (BMI) 49.8 Finger Stick Blood Glucose 131 Sodium 139 mmol/L (136-145) 11/12/20 05:10 Potassium 5.2 mmol/L (3.5-5.1) H 11/12/20 05:10 Chloride 108 mmol/L (98-107) H 11/12/20 05:10 Carbon Dioxide 25.0 mmol/L (21.0-32.0) 11/12/20 05:10 Anion Gap 6 (5-15) 11/12/20 05:10 BUN 119 mg/dL (7-18) H* 11/12/20 05:10 Creatinine 3.09 mg/dL (0.70-1.30) H 11/12/20 05:10 Est GFR (MDRD) Af Amer 26 mL/min (>60) L 11/12/20 05:10 Est GFR (MDRD) Non-Af 21 mL/min (>60) L 11/12/20 05:10 BUN/Creatinine Ratio 38.5 RATIO (10-20) H 11/12/20 05:10 Glucose 118 mg/dL (74-106) H 11/12/20 05:10 Assessment/Plan: Psychotropic Medications: Unnecessary Medications: Bowel Regimen: - Provider Comments Provider responsibility: Provider responsible to enter orders to implement recommendations Provider Comments to Recommendations by Pharmacy: Agree
--- NOTE | 2020-11-12 15:49 | NURSING ---
wound photo: right lower leg
--- NOTE | 2020-11-12 15:49 | NURSING ---
wound photo: left medial lower leg
--- NOTE | 2020-11-12 15:50 | NURSING ---
wound photo: left lateral lower leg
[2020-11-12 16:50] LABS: Bedside Glucose 143 mg/dL (70-110)
[2020-11-12] MEDS: Tamsulosin HCl 0.4 MG Capsule PO (17:29)
[2020-11-12] MEDS: Atorvastatin Calcium 80 MG Tablet PO (21:12)
[2020-11-12 21:31] LABS: Bedside Glucose 117 mg/dL (70-110)
[2020-11-13 02:11] VITALS: BP 129/44; PULSE 59; RESP 18; TEMP 36.8; O2SAT 97
[2020-11-13] MEDS: Fluticasone 0.05% 1 SPRAY NASAL.SRY 2 SPRAY NASAL (05:40)
[2020-11-13] MEDS: cloNIDine HCl 0.1 MG Tablet 0.3 MG PO ×2 (05:41→17:53)
[2020-11-13 05:42] VITALS: PULSE 69
[2020-11-13] MEDS: Carvedilol 25 MG Tablet 50 MG PO ×2 (05:42→17:54)
[2020-11-13] MEDS: Senna/Docusate Sodium 1 Tablet PO ×2 (05:42→17:54)
[2020-11-13] MEDS: hydrALAZINE 25 MG Tablet PO ×3 (05:42→20:51)
[2020-11-13] MEDS: Furosemide 40 MG Tablet PO (05:42)
[2020-11-13] MEDS: Menthol/Lanolin/Calamine/Znox 113 GM Tube 1 APPLIC TOPICAL ×2 (05:44→18:01)
[2020-11-13] MEDS: Umeclidinium Bromide Inhaler 1 PUFF IH (05:44)
[2020-11-13] MEDS: Nystatin Powder 15gm Bottle 1 APPLIC TOPICAL ×3 (05:45→20:56)
[2020-11-13 06:23] LABS: Anion Gap 6 (5-15); BUN 126 mg/dL (7-18); Calcium,Total 8.4 mg/dL (8.5-10.1); Chloride 109 mmol/L (98-107); Creatinine, Serum 3.07 mg/dL (0.70-1.30); EST Glomerular Filtration Rate 21 mL/min (>60); Est Glom Filt Rate - Afr Amer 26 mL/min (>60); Estimated Creatinine Clearance 22.46 ml/min; Glucose 79 mg/dL (74-106); Potassium 4.6 mmol/L (3.5-5.1); Sodium Level 142 mmol/L (136-145)
[2020-11-13 06:26] LABS: Bedside Glucose 83 mg/dL (70-110)
[2020-11-13] MEDS: Insulin Lispro 100 UNIT/ML INSULN.PEN SC ×3 (08:52→17:52)
[2020-11-13] MEDS: Aspirin 81 MG TAB.CHEW PO (08:54)
[2020-11-13] MEDS: Allopurinol 100 MG Tablet PO (08:54)
[2020-11-13 09:10] LABS: Bedside Glucose 138 mg/dL (70-110)
[2020-11-13 10:50] LABS: Bedside Glucose 139 mg/dL (70-110)
[2020-11-13 11:25] VITALS: BP 144/54; PULSE 64; RESP 17; TEMP 36.7; O2SAT 98
[2020-11-13 11:50] VITALS: PULSE 64; RESP 18; O2SAT 98
[2020-11-13 13:27] VITALS: BP 144/54; PULSE 64
--- NOTE | 2020-11-13 15:36 | NURSING ---
pt stated he updated family
[2020-11-13 16:41] LABS: Bedside Glucose 122 mg/dL (70-110)
[2020-11-13] MEDS: Tamsulosin HCl 0.4 MG Capsule PO (17:53)
[2020-11-13 20:51] VITALS: BP 150/61; PULSE 62
[2020-11-13] MEDS: Atorvastatin Calcium 80 MG Tablet PO (20:51)
[2020-11-13 21:10] LABS: Bedside Glucose 187 mg/dL (70-110)
[2020-11-14] VITALS (7 sets, daily range): BP systolic 126–158; BP diastolic 54–68; PULSE 60–71; RESP 18; TEMP 36.6–36.8; O2SAT 92–99
[2020-11-14] MEDS: Fluticasone 0.05% 1 SPRAY NASAL.SRY 2 SPRAY NASAL (05:43)
[2020-11-14] MEDS: cloNIDine HCl 0.1 MG Tablet 0.3 MG PO ×2 (05:44→17:31)
[2020-11-14] MEDS: Senna/Docusate Sodium 1 Tablet PO ×2 (05:44→17:31)
[2020-11-14] MEDS: Carvedilol 25 MG Tablet 50 MG PO ×2 (05:44→17:31)
[2020-11-14] MEDS: Furosemide 40 MG Tablet PO (05:44)
[2020-11-14] MEDS: hydrALAZINE 25 MG Tablet PO ×3 (05:44→21:16)
[2020-11-14] MEDS: Umeclidinium Bromide Inhaler 1 PUFF IH (05:44)
[2020-11-14] MEDS: Menthol/Lanolin/Calamine/Znox 113 GM Tube 1 APPLIC TOPICAL ×2 (05:45→17:30)
[2020-11-14] MEDS: Nystatin Powder 15gm Bottle 1 APPLIC TOPICAL ×3 (05:45→21:22)
[2020-11-14] MEDS: Polyethylene Glycol 3350 17 GM PACKET PO (05:46)
[2020-11-14 06:31] LABS: Bedside Glucose 99 mg/dL (70-110)
[2020-11-14] MEDS: Aspirin 81 MG TAB.CHEW PO (08:01)
[2020-11-14] MEDS: Allopurinol 100 MG Tablet PO (08:01)
[2020-11-14] MEDS: Insulin Lispro 100 UNIT/ML INSULN.PEN SC ×3 (08:02→17:27)
[2020-11-14 11:11] LABS: Bedside Glucose 168 mg/dL (70-110)
[2020-11-14 17:01] LABS: Bedside Glucose 164 mg/dL (70-110)
[2020-11-14] MEDS: Tamsulosin HCl 0.4 MG Capsule PO (17:30)
[2020-11-14] MEDS: Atorvastatin Calcium 80 MG Tablet PO (21:16)
[2020-11-14 21:20] LABS: Bedside Glucose 173 mg/dL (70-110)
[2020-11-15 05:00] VITALS: BP 136/54; PULSE 63; RESP 18; TEMP 36.9; O2SAT 93
[2020-11-15] MEDS: cloNIDine HCl 0.1 MG Tablet 0.3 MG PO ×2 (06:19→17:43)
[2020-11-15 06:20] VITALS: BP 136/54; PULSE 63
[2020-11-15 06:20] LABS: Bedside Glucose 98 mg/dL (70-110)
[2020-11-15] MEDS: Senna/Docusate Sodium 1 Tablet PO ×2 (06:20→17:43)
[2020-11-15] MEDS: hydrALAZINE 25 MG Tablet PO ×3 (06:20→22:04)
[2020-11-15] MEDS: Furosemide 40 MG Tablet PO (06:20)
[2020-11-15] MEDS: Carvedilol 25 MG Tablet 50 MG PO ×2 (06:20→17:43)
[2020-11-15] MEDS: Polyethylene Glycol 3350 17 GM PACKET PO (06:20)
[2020-11-15] MEDS: Fluticasone 0.05% 1 SPRAY NASAL.SRY 2 SPRAY NASAL (06:22)
[2020-11-15] MEDS: Menthol/Lanolin/Calamine/Znox 113 GM Tube 1 APPLIC TOPICAL ×2 (06:24→22:03)
[2020-11-15] MEDS: Umeclidinium Bromide Inhaler 1 PUFF IH (06:25)
[2020-11-15] MEDS: Nystatin Powder 15gm Bottle 1 APPLIC TOPICAL ×3 (06:26→22:04)
[2020-11-15 06:50] VITALS: O2SAT 93
[2020-11-15] MEDS: Insulin Lispro 100 UNIT/ML INSULN.PEN SC ×3 (08:47→17:39)
[2020-11-15] MEDS: Allopurinol 100 MG Tablet PO (08:51)
[2020-11-15] MEDS: Aspirin 81 MG TAB.CHEW PO (08:51)
[2020-11-15 11:21] LABS: Bedside Glucose 185 mg/dL (70-110)
[2020-11-15 13:23] VITALS: BP 138/64; PULSE 62
[2020-11-15 14:01] VITALS: BP 138/64; PULSE 62; RESP 20; TEMP 35.9; O2SAT 96
--- NOTE | 2020-11-15 14:40 | NURSING ---
PT STATED HE UPDATES FAMILY
[2020-11-15 17:01] LABS: Bedside Glucose 134 mg/dL (70-110)
[2020-11-15] MEDS: Tamsulosin HCl 0.4 MG Capsule PO (17:42)
[2020-11-15 21:15] LABS: Bedside Glucose 198 mg/dL (70-110)
[2020-11-15 22:04] VITALS: BP 157/46; PULSE 58
[2020-11-15] MEDS: Atorvastatin Calcium 80 MG Tablet PO (22:04)
[2020-11-16] VITALS (7 sets, daily range): BP systolic 144–149; BP diastolic 45–63; PULSE 57–76; RESP 18–22; TEMP 36.7–36.9; O2SAT 89–98
[2020-11-16] MEDS: Umeclidinium Bromide Inhaler 1 PUFF IH (05:55)
[2020-11-16] MEDS: Fluticasone 0.05% 1 SPRAY NASAL.SRY 2 SPRAY NASAL (05:58)
[2020-11-16] MEDS: Polyethylene Glycol 3350 17 GM PACKET PO (05:59)
[2020-11-16] MEDS: Senna/Docusate Sodium 1 Tablet PO ×2 (06:00→17:31)
[2020-11-16] MEDS: Carvedilol 25 MG Tablet 50 MG PO ×2 (06:00→17:30)
[2020-11-16] MEDS: Furosemide 40 MG Tablet PO (06:00)
[2020-11-16] MEDS: cloNIDine HCl 0.1 MG Tablet 0.3 MG PO ×2 (06:01→17:31)
[2020-11-16] MEDS: hydrALAZINE 25 MG Tablet PO ×3 (06:01→20:46)
[2020-11-16] MEDS: Menthol/Lanolin/Calamine/Znox 113 GM Tube 1 APPLIC TOPICAL ×2 (06:04→20:47)
[2020-11-16] MEDS: Nystatin Powder 15gm Bottle 1 APPLIC TOPICAL ×3 (06:09→20:48)
[2020-11-16 06:20] LABS: Bedside Glucose 106 mg/dL (70-110)
[2020-11-16] MEDS: Aspirin 81 MG TAB.CHEW PO (08:24)
[2020-11-16] MEDS: Insulin Lispro 100 UNIT/ML INSULN.PEN SC ×3 (08:24→17:29)
[2020-11-16] MEDS: Allopurinol 100 MG Tablet PO (08:26)
[2020-11-16] MEDS: Magnesium Hydroxide 30 ML UDC PO (08:31)
[2020-11-16 11:16] LABS: Bedside Glucose 164 mg/dL (70-110)
[2020-11-16 17:00] LABS: Bedside Glucose 154 mg/dL (70-110)
--- NOTE | 2020-11-16 17:10 | NURSING ---
WHILE CHANGING PT DRESSINGS TO LEGS,LARGE AMOUNT OF YELLOW FOUL SMELL DRAINAGE. REPORTED TO RN.
[2020-11-16] MEDS: Tamsulosin HCl 0.4 MG Capsule PO (17:30)
[2020-11-16] MEDS: Atorvastatin Calcium 80 MG Tablet PO (20:46)
[2020-11-16 21:21] LABS: Bedside Glucose 237 mg/dL (70-110)
[2020-11-17 05:00] VITALS: BP 151/70; PULSE 65; RESP 18; TEMP 36.6; O2SAT 91
--- NOTE | 2020-11-17 06:19 | NURSING ---
changed dx at hs, very saturated with fluid. left leg more than right. applied dsd and new clean ana wraps. pt tolerated well.
[2020-11-17] MEDS: cloNIDine HCl 0.1 MG Tablet 0.3 MG PO ×2 (06:21→17:12)
[2020-11-17] MEDS: Carvedilol 25 MG Tablet 50 MG PO ×2 (06:21→17:12)
[2020-11-17] MEDS: Polyethylene Glycol 3350 17 GM PACKET PO (06:21)
[2020-11-17 06:22] VITALS: BP 151/70; PULSE 65
[2020-11-17] MEDS: Senna/Docusate Sodium 1 Tablet PO ×2 (06:22→17:12)
[2020-11-17] MEDS: Furosemide 40 MG Tablet PO (06:22)
[2020-11-17] MEDS: Menthol/Lanolin/Calamine/Znox 113 GM Tube 1 APPLIC TOPICAL ×2 (06:22→17:15)
[2020-11-17] MEDS: hydrALAZINE 25 MG Tablet PO ×3 (06:22→21:11)
[2020-11-17] MEDS: Nystatin Powder 15gm Bottle 1 APPLIC TOPICAL ×3 (06:24→21:14)
[2020-11-17] MEDS: Umeclidinium Bromide Inhaler 1 PUFF IH (06:24)
[2020-11-17] MEDS: Fluticasone 0.05% 1 SPRAY NASAL.SRY 2 SPRAY NASAL (06:24)
[2020-11-17 06:26] LABS: Bedside Glucose 226 mg/dL (70-110)
[2020-11-17 06:28] LABS: Anion Gap 5 (5-15); BUN 121 mg/dL (7-18); BUN/Creat Ratio 42.8 RATIO (10-20); Calcium,Total 8.6 mg/dL (8.5-10.1); Chloride 107 mmol/L (98-107); Creatinine, Serum 2.83 mg/dL (0.70-1.30); EST Glomerular Filtration Rate 24 mL/min (>60); Est Glom Filt Rate - Afr Amer 28 mL/min (>60); Estimated Creatinine Clearance 24.36 ml/min; Glucose 111 mg/dL (74-106); Potassium 5.5 mmol/L (3.5-5.1); Sodium Level 140 mmol/L (136-145)
[2020-11-17] MEDS: Insulin Lispro 100 UNIT/ML INSULN.PEN SC ×3 (08:37→17:10)
[2020-11-17] MEDS: Aspirin 81 MG TAB.CHEW PO (08:38)
[2020-11-17] MEDS: Allopurinol 100 MG Tablet PO (08:39)
--- NOTE | 2020-11-17 13:19 | NURSING ---
Pt returned from Dr. Camarena's office at this time, Pt stated Dr. Camarena wants to see him weekly now. New appointments scheduled for 11/24 at [id number] and
[2020-11-17 13:21] LABS: Bedside Glucose 138 mg/dL (70-110)
--- NOTE | 2020-11-17 13:21 | NURSING ---
Pt returned from Dr. Camarena's office at this time, Pt is to see Dr. Camarena weekly now instead of biweekly, Appointments scheduled for 11/24 at 0945 and 12/01 at 1015. Transport needs set up.
[2020-11-17 13:36] VITALS: PULSE 62
[2020-11-17 14:35] VITALS: BP 144/55; PULSE 62; RESP 20; TEMP 36.1; O2SAT 96
--- NOTE | 2020-11-17 16:08 | NURSING ---
No bm since 11/12 warm prune juice and butter given, pt has prn milk of magnesium ordered but pt has CKD stage 3 and BUN 121 so held per nursing judgement and will clarify it is ok to give with decreased kidney function. Pt refusing prn suppository at this time.
--- NOTE | 2020-11-17 16:33 | NURSING ---
Pt's leg dressings changed prn today for over saturation.
[2020-11-17 17:00] LABS: Bedside Glucose 190 mg/dL (70-110)
[2020-11-17] MEDS: Tamsulosin HCl 0.4 MG Capsule PO (17:12)
[2020-11-17] MEDS: Lactulose 20 GM/30 ML UDC PO (17:55)
--- NOTE | 2020-11-17 18:12 | NURSING ---
Dr. Gutierrez's office called and informed this nurse of appointment on 12/24/20 at 9am, pt aware
[2020-11-17 21:11] VITALS: BP 167/73; PULSE 59
[2020-11-17] MEDS: Atorvastatin Calcium 80 MG Tablet PO (21:11)
[2020-11-17 21:16] LABS: Bedside Glucose 191 mg/dL (70-110)
--- NOTE | 2020-11-17 23:12 | NURSING ---
Addendum entered by Lisa Garcia 11/17/20 23:33: Bilateral legs cleansed with normal saline, pat dry, adaptic, abd, and kerlix. Dressing changed due to order and notices seepage copious yellowish drainage with a mild odor. Mild odor and redness to right leg. Rn made aware. Original Note: Per [employer], pt legs seeping more with foul smelling drainage, increased redness. Note left for Dr. Mchugh to address in AM.
[2020-11-17 23:13] VITALS: PULSE 59
[2020-11-18] VITALS (7 sets, daily range): BP systolic 127–147; BP diastolic 51–73; PULSE 60–64; RESP 18–20; TEMP 36.6–36.8; O2SAT 92–98
[2020-11-18] MEDS: Senna/Docusate Sodium 1 Tablet PO ×2 (05:14→17:53)
[2020-11-18] MEDS: Carvedilol 25 MG Tablet 50 MG PO ×2 (05:14→17:52)
[2020-11-18] MEDS: cloNIDine HCl 0.1 MG Tablet 0.3 MG PO ×2 (05:14→17:51)
[2020-11-18] MEDS: Polyethylene Glycol 3350 17 GM PACKET PO (05:15)
[2020-11-18] MEDS: Furosemide 40 MG Tablet PO (05:15)
[2020-11-18] MEDS: hydrALAZINE 25 MG Tablet PO ×3 (05:15→21:37)
[2020-11-18] MEDS: Fluticasone 0.05% 1 SPRAY NASAL.SRY 2 SPRAY NASAL (05:17)
[2020-11-18] MEDS: Nystatin Powder 15gm Bottle 1 APPLIC TOPICAL ×3 (05:19→21:43)
[2020-11-18] MEDS: Umeclidinium Bromide Inhaler 1 PUFF IH (05:19)
[2020-11-18] MEDS: Menthol/Lanolin/Calamine/Znox 113 GM Tube 1 APPLIC TOPICAL ×3 (05:20→21:43)
[2020-11-18 06:21] LABS: Bedside Glucose 118 mg/dL (70-110)
--- NOTE | 2020-11-18 08:05 | RAD_ITS ---
STUDY: X-RAY CHEST REASON FOR EXAM: Male, 70 years old. SHORTNESS OF BREATH TECHNIQUE: PA and lateral views of the chest. COMPARISON: Comparison is made with prior study dated 11/07/2020. FINDINGS: Small right pleural effusion with right basilar atelectasis and/or infiltrate. Blunting of the left costo phrenic angle. Vascular congestion and mild degree of CHF. There is borderline cardiomegaly. Normal mediastinum and gregg. Normal visualized pulmonary arteries. There is atherosclerotic calcification of the aortic arch with tortuosity. There are diffuse degenerative changes of the visualized thoracic spine. Normal visualized ribs, clavicles, and shoulders. There is no demonstrated abnormality of the visualized soft tissue structures of the upper abdomen. RAD/Chest PA and Lateral IMPRESSION: Vascular congestion and mild degree of CHF with small bilateral effusions more prominent on the right side and bibasilar atelectasis more prominent on the right side. Electronically Signed: Delvis Chilel MD at 9:55 EST , Service support ,
[2020-11-18 08:22] LABS: Absolute Lymphocyte Count 0.23 X10^3/uL (0.83-4.51); Absolute Neutrophil Count 3.9 X10^3/uL (2.0-7.7); Basophil# 0.02 X10^3/uL; Basophil% 0.4 % (0-1); Eosinophil# 0.11 X10^3/uL; Eosinophils% 2.3 % (0-5); Hematocrit 27.8 % (40-54); Hemoglobin 8.4 g/dL (13.0-16.5); Lymphocyte # 0.23 X10^3/ul (4.0); Lymphocyte % 4.8 % (19-41); Mean Corp Hgb Conc 30.2 g/dL (32-36); Mean Corpuscular Hgb 31.7 pg (27.0-32.0); Mean Corpuscular Volume 104.9 fL (80-94); Mean Platelet Vol. 10.6 fl (6.2-12.0); Monocyte# 0.43 X10^3/uL; Monocyte% 9.1 % (0-10); NRBC Flagged by Analyzer 0 % (0-5); Neutrophil # 3.94 X10^3/uL (2.7-7.7); POSITIVE COUNT YES; POSITIVE DIFFERENTIAL YES; POSITIVE MORPHOLOGY YES; Platelet Count 74 K/mm3 (150-450); RBC Distribution Width SD 65.1 fl (35.1-43.9); Red Blood Count 2.65 M/mm3 (4.6-6.2); White Blood Count 4.8 K/mm3 (4.4-11.0)
[2020-11-18 08:23] LABS: Differential Indicated SCAN CRITERIA MET
[2020-11-18] MEDS: Aspirin 81 MG TAB.CHEW PO (08:26)
[2020-11-18] MEDS: Allopurinol 100 MG Tablet PO (08:26)
[2020-11-18] MEDS: Insulin Lispro 100 UNIT/ML INSULN.PEN SC ×3 (08:27→17:49)
[2020-11-18 08:38] LABS: Anion Gap 5 (5-15); BUN 121 mg/dL (7-18); BUN/Creat Ratio 40.7 RATIO (10-20); Calcium,Total 8.5 mg/dL (8.5-10.1); Chloride 109 mmol/L (98-107); Creatinine, Serum 2.97 mg/dL (0.70-1.30); EST Glomerular Filtration Rate 22 mL/min (>60); Est Glom Filt Rate - Afr Amer 27 mL/min (>60); Estimated Creatinine Clearance 23.21 ml/min; Glucose 121 mg/dL (74-106); Potassium 5.3 mmol/L (3.5-5.1); Sodium Level 140 mmol/L (136-145)
[2020-11-18 08:52] LABS: Anisocytosis 1+; Platelet Estimate MOD DEC (ADEQ)
[2020-11-18 09:12] LABS: BNP,B-Type NATRIURETIC PEPTIDE 412.3 pg/mL (0-100)
[2020-11-18] MEDS: Sodium Polystyrene Sulfonate 15 GM/60 ML UDC 30 GM PO (10:12)
[2020-11-18 10:51] LABS: Bedside Glucose 187 mg/dL (70-110)
[2020-11-18] MEDS: Furosemide 40 MG/4 ML Vial IV ×2 (11:09→16:42)
--- NOTE | 2020-11-18 12:06 | NURSING ---
PT WAS GIVEN KAYEXALATE WITH POSITIVE RESULTS. PT ALSO WAS DRY HEAVING WHILE ON BED SIDE COMMODE. PT NOW FEELING BETTER. RN AWARE.
--- NOTE | 2020-11-18 15:17 | NURSING ---
Addendum entered by Samantha Arroyo 11/18/20 15:40: Updated Dr. Mchugh on pt's output and input of 720ml. Dr. Mchugh ordered 40mg of Lasix 1x dose now and 40mg of Lasix twice daily. Original Note: Pt voided 350 ml that with large amount of loose stool. Legs +10 pitting edema bilateral and seeping large amount of clear drainage. Pt received 40mg po of Lasix and 40mg Iv of Lasix. will continue to monitor output and update Dr. Mchugh.
[2020-11-18] MEDS: 0.9% Saline Lock 10 ML Syringe IV (16:42)
[2020-11-18 17:10] LABS: Bedside Glucose 122 mg/dL (70-110)
[2020-11-18] MEDS: Tamsulosin HCl 0.4 MG Capsule PO (17:49)
[2020-11-18] MEDS: Doxycycline 100 MG CAPSULE PO (17:52)
[2020-11-18] MEDS: Cefdinir 300 MG Capsule PO (17:53)
--- NOTE | 2020-11-18 19:09 | NURSING ---
PT STATED HE UPDATES FAMILY. NO NEED TO CALL.
[2020-11-18 21:26] LABS: Bedside Glucose 175 mg/dL (70-110)
[2020-11-18] MEDS: Atorvastatin Calcium 80 MG Tablet PO (21:39)
[2020-11-19] VITALS (10 sets, daily range): BP systolic 111–172; BP diastolic 44–69; PULSE 58–70; RESP 18–20; TEMP 36.6–36.7; O2SAT 97–98
[2020-11-19 06:04] LABS: Absolute Lymphocyte Count 0.32 X10^3/uL (0.83-4.51); Basophil# 0.03 X10^3/uL; Basophil% 0.6 % (0-1); Eosinophil# 0.19 X10^3/uL; Eosinophils% 3.7 % (0-5); Hematocrit 29.5 % (40-54); Hemoglobin 8.8 g/dL (13.0-16.5); Lymphocyte # 0.32 X10^3/ul (4.0); Lymphocyte % 6.2 % (19-41); Mean Corp Hgb Conc 29.8 g/dL (32-36); Mean Corpuscular Hgb 31.2 pg (27.0-32.0); Mean Corpuscular Volume 104.6 fL (80-94); Mean Platelet Vol. 11.7 fl (6.2-12.0); Monocyte# 0.56 X10^3/uL; Monocyte% 10.9 % (0-10); NRBC Flagged by Analyzer 0 % (0-5); Neutrophil # 4.03 X10^3/uL (2.7-7.7); POSITIVE COUNT YES; POSITIVE DIFFERENTIAL YES; POSITIVE MORPHOLOGY YES; Platelet Count 84 K/mm3 (150-450); RBC Distribution Width CV 16.9 % (11.6-14.6); RBC Distribution Width SD 65.1 fl (35.1-43.9); Red Blood Count 2.82 M/mm3 (4.6-6.2); White Blood Count 5.2 K/mm3 (4.4-11.0)
[2020-11-19 06:05] LABS: Differential Indicated SCAN CRITERIA MET
[2020-11-19 06:19] LABS: Differential Comment SCANNED; Platelet Estimate MOD DEC (ADEQ)
[2020-11-19 06:20] LABS: Acanthocytes RARE; Anisocytosis 1+; Macrocytosis RARE; Microcytosis RARE
[2020-11-19 06:21] LABS: Hypochromasia RARE; Ovalocyte RARE
[2020-11-19 06:31] LABS: Bedside Glucose 107 mg/dL (70-110)
[2020-11-19] MEDS: cloNIDine HCl 0.1 MG Tablet 0.3 MG PO ×2 (06:33→17:31)
[2020-11-19] MEDS: Senna/Docusate Sodium 1 Tablet PO ×2 (06:34→17:33)
[2020-11-19] MEDS: Carvedilol 25 MG Tablet 50 MG PO ×2 (06:34→17:32)
[2020-11-19] MEDS: Doxycycline 100 MG CAPSULE PO ×2 (06:35→17:32)
[2020-11-19] MEDS: hydrALAZINE 25 MG Tablet PO ×3 (06:36→22:10)
[2020-11-19 06:37] LABS: Anion Gap 3 (5-15); BUN 114 mg/dL (7-18); BUN/Creat Ratio 39.7 RATIO (10-20); Calcium,Total 8.8 mg/dL (8.5-10.1); Chloride 108 mmol/L (98-107); Creatinine, Serum 2.87 mg/dL (0.70-1.30); EST Glomerular Filtration Rate 23 mL/min (>60); Est Glom Filt Rate - Afr Amer 28 mL/min (>60); Estimated Creatinine Clearance 24.02 ml/min; Glucose 105 mg/dL (74-106); Potassium 4.6 mmol/L (3.5-5.1); Sodium Level 141 mmol/L (136-145)
[2020-11-19] MEDS: 0.9% Saline Lock 10 ML Syringe IV ×2 (06:37→11:19)
[2020-11-19] MEDS: Umeclidinium Bromide Inhaler 1 PUFF IH (06:37)
[2020-11-19] MEDS: Cefdinir 300 MG Capsule PO ×2 (06:37→17:32)
[2020-11-19] MEDS: Fluticasone 0.05% 1 SPRAY NASAL.SRY 2 SPRAY NASAL (06:38)
--- NOTE | 2020-11-19 06:38 | NURSING ---
received call from lab that pt BUN was a critical value of 1.14, charge nurse aware of value
[2020-11-19] MEDS: Nystatin Powder 15gm Bottle 1 APPLIC TOPICAL ×3 (06:45→22:13)
[2020-11-19] MEDS: Insulin Lispro 100 UNIT/ML INSULN.PEN SC ×3 (08:14→17:28)
[2020-11-19] MEDS: Aspirin 81 MG TAB.CHEW PO (08:15)
[2020-11-19] MEDS: Allopurinol 100 MG Tablet PO (08:15)
--- NOTE | 2020-11-19 10:22 | NURSING ---
wound photo: right lower leg
--- NOTE | 2020-11-19 10:23 | NURSING ---
wound photo: right lateral lower leg
--- NOTE | 2020-11-19 10:25 | NURSING ---
wound photo: left lower leg
--- NOTE | 2020-11-19 10:25 | NURSING ---
wound photo: left lateral lower leg
--- NOTE | 2020-11-19 10:43 | NURSING ---
Dressings changed to BLE today per wound nurse
[2020-11-19 11:06] LABS: Bedside Glucose 158 mg/dL (70-110)
[2020-11-19] MEDS: Furosemide 40 MG/4 ML Vial IV ×2 (11:20→17:56)
[2020-11-19] MEDS: Tuberculin,Purif.prot.deriv. 50 TU/ML Vial 5 ML ID (11:26)
[2020-11-19] MEDS: Iron Polysaccharide Complex 150 MG CAPSULE PO (11:27)
--- NOTE | 2020-11-19 11:32 | CASEMGMT ---
Social Work IDT met with patient and sister via conference call for care plan meeting. Discussed patient's progress in therapy and nursing. Pt getting legs wrapped and lasix. Pt is out of isolation 11/25. Explained Medicare benefit. [facility]ouraged [facility] coverage. The goal is to return home alone with 4 steps to enter and PLOF. SW to continue to follow. Daxa Hines, NAS GANDHIW
[2020-11-19 17:30] LABS: Bedside Glucose 128 mg/dL (70-110)
[2020-11-19] MEDS: Tamsulosin HCl 0.4 MG Capsule PO (17:31)
[2020-11-19] MEDS: Menthol/Lanolin/Calamine/Znox 113 GM Tube 1 APPLIC TOPICAL (17:36)
[2020-11-19 21:21] LABS: Bedside Glucose 164 mg/dL (70-110)
[2020-11-19] MEDS: Atorvastatin Calcium 80 MG Tablet PO (22:12)
[2020-11-20 05:00] VITALS: BP 167/70; PULSE 67; RESP 18; TEMP 37
[2020-11-20] MEDS: Polyethylene Glycol 3350 17 GM PACKET PO (05:27)
[2020-11-20 05:28] VITALS: BP 167/70; PULSE 67
[2020-11-20] MEDS: Doxycycline 100 MG CAPSULE PO ×2 (05:28→18:08)
[2020-11-20] MEDS: hydrALAZINE 25 MG Tablet PO ×3 (05:28→20:27)
[2020-11-20] MEDS: Carvedilol 25 MG Tablet 50 MG PO ×2 (05:28→18:09)
[2020-11-20] MEDS: Senna/Docusate Sodium 1 Tablet PO ×2 (05:28→18:08)
[2020-11-20] MEDS: cloNIDine HCl 0.1 MG Tablet 0.3 MG PO ×2 (05:28→18:10)
[2020-11-20] MEDS: Cefdinir 300 MG Capsule PO ×2 (05:29→18:09)
[2020-11-20] MEDS: Fluticasone 0.05% 1 SPRAY NASAL.SRY 2 SPRAY NASAL (05:30)
[2020-11-20] MEDS: Nystatin Powder 15gm Bottle 1 APPLIC TOPICAL ×3 (05:30→20:28)
[2020-11-20] MEDS: 0.9% Saline Lock 10 ML Syringe IV ×2 (05:33→09:36)
[2020-11-20] MEDS: Menthol/Lanolin/Calamine/Znox 113 GM Tube 1 APPLIC TOPICAL ×2 (05:34→18:11)
[2020-11-20] MEDS: Umeclidinium Bromide Inhaler 1 PUFF IH (05:35)
[2020-11-20 05:45] LABS: Hematocrit 29.3 % (40-54); Hemoglobin 8.6 g/dL (13.0-16.5)
[2020-11-20 06:13] LABS: Anion Gap 6 (5-15); BUN 111 mg/dL (7-18); BUN/Creat Ratio 41.7 RATIO (10-20); Calcium,Total 8.8 mg/dL (8.5-10.1); Chloride 108 mmol/L (98-107); Creatinine, Serum 2.66 mg/dL (0.70-1.30); EST Glomerular Filtration Rate 25 mL/min (>60); Est Glom Filt Rate - Afr Amer 31 mL/min (>60); Estimated Creatinine Clearance 25.92 ml/min; Glucose 91 mg/dL (74-106); Potassium 4.4 mmol/L (3.5-5.1); Sodium Level 143 mmol/L (136-145)
[2020-11-20 06:15] LABS: Bedside Glucose 94 mg/dL (70-110)
[2020-11-20 06:32] VITALS: O2SAT 97
[2020-11-20] MEDS: Insulin Lispro 100 UNIT/ML INSULN.PEN SC ×3 (09:36→18:10)
[2020-11-20] MEDS: Aspirin 81 MG TAB.CHEW PO (09:36)
[2020-11-20] MEDS: Allopurinol 100 MG Tablet PO (09:36)
[2020-11-20] MEDS: Furosemide 100 MG/10 ML Vial 80 MG IV ×2 (09:37→18:08)
[2020-11-20 11:15] LABS: Bedside Glucose 165 mg/dL (70-110)
[2020-11-20 12:35] VITALS: PULSE 80
[2020-11-20 14:58] VITALS: BP 158/66; PULSE 65; RESP 18; TEMP 36.5; O2SAT 97
[2020-11-20 16:35] LABS: Bedside Glucose 149 mg/dL (70-110)
[2020-11-20] MEDS: Tamsulosin HCl 0.4 MG Capsule PO (18:09)
[2020-11-20 20:27] VITALS: PULSE 59
[2020-11-20] MEDS: Atorvastatin Calcium 80 MG Tablet PO (20:28)
[2020-11-20 21:35] LABS: Bedside Glucose 155 mg/dL (70-110)
[2020-11-21] VITALS (7 sets, daily range): BP systolic 131–145; BP diastolic 44–57; PULSE 59–84; RESP 18–20; TEMP 36.3–36.6; O2SAT 3–99
--- NOTE | 2020-11-21 04:06 | CPS ---
patient on home cpap 11/20/2020
[2020-11-21 05:51] LABS: Anion Gap 6 (5-15); BUN 99 mg/dL (7-18); BUN/Creat Ratio 38.2 RATIO (10-20); Calcium,Total 8.9 mg/dL (8.5-10.1); Chloride 107 mmol/L (98-107); Creatinine, Serum 2.59 mg/dL (0.70-1.30); EST Glomerular Filtration Rate 26 mL/min (>60); Est Glom Filt Rate - Afr Amer 32 mL/min (>60); Estimated Creatinine Clearance 26.62 ml/min; Glucose 59 mg/dL (74-106); Potassium 4.2 mmol/L (3.5-5.1); Sodium Level 143 mmol/L (136-145)
[2020-11-21] MEDS: cloNIDine HCl 0.1 MG Tablet 0.3 MG PO ×2 (06:11→18:02)
[2020-11-21] MEDS: Menthol/Lanolin/Calamine/Znox 113 GM Tube 1 APPLIC TOPICAL ×2 (06:11→18:12)
[2020-11-21] MEDS: Cefdinir 300 MG Capsule PO ×2 (06:11→18:03)
[2020-11-21] MEDS: Doxycycline 100 MG CAPSULE PO ×2 (06:11→18:03)
[2020-11-21] MEDS: Senna/Docusate Sodium 1 Tablet PO ×2 (06:11→18:04)
[2020-11-21] MEDS: Carvedilol 25 MG Tablet 50 MG PO ×2 (06:11→18:02)
[2020-11-21] MEDS: Polyethylene Glycol 3350 17 GM PACKET PO (06:12)
[2020-11-21] MEDS: Nystatin Powder 15gm Bottle 1 APPLIC TOPICAL ×3 (06:12→20:18)
[2020-11-21] MEDS: hydrALAZINE 25 MG Tablet PO ×3 (06:13→20:17)
[2020-11-21] MEDS: Fluticasone 0.05% 1 SPRAY NASAL.SRY 2 SPRAY NASAL (06:15)
[2020-11-21] MEDS: Umeclidinium Bromide Inhaler 1 PUFF IH (06:16)
[2020-11-21 06:25] LABS: Bedside Glucose 61 mg/dL (70-110)
[2020-11-21 07:21] LABS: Bedside Glucose 108 mg/dL (70-110)
[2020-11-21] MEDS: Aspirin 81 MG TAB.CHEW PO (08:36)
[2020-11-21] MEDS: Insulin Lispro 100 UNIT/ML INSULN.PEN SC ×3 (08:36→17:56)
[2020-11-21] MEDS: Allopurinol 100 MG Tablet PO (08:38)
--- NOTE | 2020-11-21 09:35 | MDS.RN ---
Information for the mds was obtained from review of the clinical record, interview of resident, staff, and direct observation of residents care.
[2020-11-21] MEDS: Furosemide 100 MG/10 ML Vial 80 MG IV ×2 (10:36→18:12)
[2020-11-21] MEDS: 0.9% Saline Lock 10 ML Syringe IV ×2 (10:37→18:12)
[2020-11-21 11:10] LABS: Bedside Glucose 174 mg/dL (70-110)
--- NOTE | 2020-11-21 13:03 | NURSING ---
PT STATED HE UP DATES FAMILY.
[2020-11-21 15:41] LABS: Bedside Glucose 162 mg/dL (70-110)
[2020-11-21] MEDS: Tamsulosin HCl 0.4 MG Capsule PO (18:01)
[2020-11-21] MEDS: Atorvastatin Calcium 80 MG Tablet PO (20:16)
[2020-11-21 21:16] LABS: Bedside Glucose 214 mg/dL (70-110)
[2020-11-22 05:00] VITALS: BP 119/53; PULSE 72; RESP 18; TEMP 36.6; O2SAT 91
[2020-11-22 06:30] LABS: Bedside Glucose 129 mg/dL (70-110)
[2020-11-22] MEDS: Polyethylene Glycol 3350 17 GM PACKET PO (06:32)
[2020-11-22 06:33] VITALS: BP 119/53; PULSE 72
[2020-11-22] MEDS: cloNIDine HCl 0.1 MG Tablet 0.3 MG PO ×2 (06:33→17:26)
[2020-11-22] MEDS: hydrALAZINE 25 MG Tablet PO ×3 (06:33→20:03)
[2020-11-22] MEDS: Doxycycline 100 MG CAPSULE PO ×2 (06:34→17:25)
[2020-11-22] MEDS: Menthol/Lanolin/Calamine/Znox 113 GM Tube 1 APPLIC TOPICAL ×2 (06:34→17:27)
[2020-11-22] MEDS: Carvedilol 25 MG Tablet 50 MG PO ×2 (06:34→17:25)
[2020-11-22] MEDS: Cefdinir 300 MG Capsule PO ×2 (06:34→17:26)
[2020-11-22] MEDS: Senna/Docusate Sodium 1 Tablet PO ×2 (06:34→17:26)
[2020-11-22] MEDS: Nystatin Powder 15gm Bottle 1 APPLIC TOPICAL ×3 (06:35→20:06)
[2020-11-22] MEDS: Fluticasone 0.05% 1 SPRAY NASAL.SRY 2 SPRAY NASAL (06:36)
[2020-11-22] MEDS: Umeclidinium Bromide Inhaler 1 PUFF IH (06:36)
[2020-11-22] MEDS: Insulin Lispro 100 UNIT/ML INSULN.PEN SC ×3 (08:06→17:25)
[2020-11-22] MEDS: Aspirin 81 MG TAB.CHEW PO (08:07)
[2020-11-22] MEDS: Allopurinol 100 MG Tablet PO (08:07)
[2020-11-22] MEDS: Furosemide 100 MG/10 ML Vial 80 MG IV (09:55)
--- NOTE | 2020-11-22 10:00 | NURSING ---
Tegaderm dressing replaced d/t dressing starting to come off.
[2020-11-22 11:20] LABS: Bedside Glucose 213 mg/dL (70-110)
[2020-11-22 11:44] LABS: Anion Gap 5 (5-15); BUN 94 mg/dL (7-18); BUN/Creat Ratio 34.8 RATIO (10-20); Calcium,Total 8.7 mg/dL (8.5-10.1); Chloride 108 mmol/L (98-107); EST Glomerular Filtration Rate 25 mL/min (>60); Est Glom Filt Rate - Afr Amer 30 mL/min (>60); Estimated Creatinine Clearance 25.53 ml/min; Glucose 198 mg/dL (74-106); Potassium 4.3 mmol/L (3.5-5.1); Sodium Level 141 mmol/L (136-145)
[2020-11-22 13:03] VITALS: O2SAT 94
[2020-11-22 14:52] VITALS: PULSE 65
[2020-11-22 15:14] VITALS: BP 139/56; PULSE 65; RESP 16; TEMP 36.2; O2SAT 97
[2020-11-22 16:26] LABS: Bedside Glucose 205 mg/dL (70-110)
[2020-11-22] MEDS: Tamsulosin HCl 0.4 MG Capsule PO (17:26)
[2020-11-22] MEDS: Furosemide 40 MG/4 ML Vial IV (18:04)
[2020-11-22 20:03] VITALS: BP 140/38; PULSE 61
[2020-11-22] MEDS: Atorvastatin Calcium 80 MG Tablet PO (20:03)
[2020-11-22 21:35] LABS: Bedside Glucose 226 mg/dL (70-110)
[2020-11-23 04:29] VITALS: BP 117/60; PULSE 73; RESP 18; TEMP 36.6; O2SAT 92
[2020-11-23] MEDS: Polyethylene Glycol 3350 17 GM PACKET PO (04:30)
[2020-11-23] MEDS: cloNIDine HCl 0.1 MG Tablet 0.3 MG PO ×2 (04:31→17:12)
[2020-11-23 04:32] VITALS: BP 117/60; PULSE 73
[2020-11-23] MEDS: hydrALAZINE 25 MG Tablet PO ×3 (04:32→19:49)
[2020-11-23] MEDS: Cefdinir 300 MG Capsule PO ×2 (04:32→17:13)
[2020-11-23] MEDS: Doxycycline 100 MG CAPSULE PO ×2 (04:32→17:13)
[2020-11-23] MEDS: Carvedilol 25 MG Tablet 50 MG PO ×2 (04:32→17:12)
[2020-11-23] MEDS: Senna/Docusate Sodium 1 Tablet PO ×2 (04:33→17:19)
[2020-11-23] MEDS: Nystatin Powder 15gm Bottle 1 APPLIC TOPICAL ×3 (04:33→19:53)
[2020-11-23] MEDS: Menthol/Lanolin/Calamine/Znox 113 GM Tube 1 APPLIC TOPICAL ×2 (04:34→17:14)
[2020-11-23] MEDS: Fluticasone 0.05% 1 SPRAY NASAL.SRY 2 SPRAY NASAL (04:35)
[2020-11-23] MEDS: Umeclidinium Bromide Inhaler 1 PUFF IH (04:35)
[2020-11-23 06:25] LABS: Bedside Glucose 151 mg/dL (70-110)
[2020-11-23 07:31] LABS: Anion Gap 6 (5-15); BUN 93 mg/dL (7-18); BUN/Creat Ratio 34.8 RATIO (10-20); Calcium,Total 8.6 mg/dL (8.5-10.1); Chloride 107 mmol/L (98-107); Creatinine, Serum 2.67 mg/dL (0.70-1.30); EST Glomerular Filtration Rate 25 mL/min (>60); Est Glom Filt Rate - Afr Amer 30 mL/min (>60); Estimated Creatinine Clearance 25.82 ml/min; Glucose 142 mg/dL (74-106); Potassium 4.3 mmol/L (3.5-5.1); Sodium Level 142 mmol/L (136-145)
[2020-11-23] MEDS: Aspirin 81 MG TAB.CHEW PO (08:33)
[2020-11-23] MEDS: Insulin Lispro 100 UNIT/ML INSULN.PEN SC ×3 (08:33→17:17)
[2020-11-23] MEDS: Allopurinol 100 MG Tablet PO (08:34)
[2020-11-23] MEDS: Furosemide 40 MG/4 ML Vial IV ×3 (10:24→18:28)
[2020-11-23] MEDS: 0.9% Saline Lock 10 ML Syringe IV ×2 (10:27→18:28)
[2020-11-23 11:01] LABS: Bedside Glucose 246 mg/dL (70-110)
[2020-11-23 13:48] VITALS: PULSE 65
[2020-11-23 14:11] VITALS: BP 136/53; PULSE 65; RESP 16; TEMP 36.8; O2SAT 99
[2020-11-23 16:31] LABS: Bedside Glucose 172 mg/dL (70-110)
[2020-11-23] MEDS: Tamsulosin HCl 0.4 MG Capsule PO (17:13)
[2020-11-23 19:49] VITALS: PULSE 63
[2020-11-23] MEDS: Atorvastatin Calcium 80 MG Tablet PO (19:49)
[2020-11-23 21:21] LABS: Bedside Glucose 219 mg/dL (70-110)
[2020-11-23 22:33] VITALS: PULSE 63; RESP 18; O2SAT 96
[2020-11-24] VITALS (7 sets, daily range): BP systolic 126–149; BP diastolic 38–49; PULSE 58–79; RESP 18; TEMP 36.2–36.6; O2SAT 94–97
[2020-11-24 06:17] LABS: Anion Gap 3 (5-15); BUN 92 mg/dL (7-18); BUN/Creat Ratio 34.7 RATIO (10-20); Chloride 107 mmol/L (98-107); Creatinine, Serum 2.65 mg/dL (0.70-1.30); EST Glomerular Filtration Rate 25 mL/min (>60); Est Glom Filt Rate - Afr Amer 31 mL/min (>60); Estimated Creatinine Clearance 26.02 ml/min; Glucose 130 mg/dL (74-106); Potassium 4.2 mmol/L (3.5-5.1); Sodium Level 141 mmol/L (136-145)
[2020-11-24 06:30] LABS: Bedside Glucose 130 mg/dL (70-110)
[2020-11-24] MEDS: Senna/Docusate Sodium 1 Tablet PO ×2 (06:33→17:29)
[2020-11-24] MEDS: Fluticasone 0.05% 1 SPRAY NASAL.SRY 2 SPRAY NASAL (06:33)
[2020-11-24] MEDS: Umeclidinium Bromide Inhaler 1 PUFF IH (06:33)
[2020-11-24] MEDS: Doxycycline 100 MG CAPSULE PO ×2 (06:33→17:28)
[2020-11-24] MEDS: Cefdinir 300 MG Capsule PO ×2 (06:34→17:28)
[2020-11-24] MEDS: Carvedilol 25 MG Tablet 50 MG PO ×2 (06:34→17:28)
[2020-11-24] MEDS: cloNIDine HCl 0.1 MG Tablet 0.3 MG PO ×2 (06:34→17:27)
[2020-11-24] MEDS: hydrALAZINE 25 MG Tablet PO ×3 (06:34→21:40)
[2020-11-24] MEDS: Menthol/Lanolin/Calamine/Znox 113 GM Tube 1 APPLIC TOPICAL ×2 (06:35→17:23)
[2020-11-24] MEDS: Nystatin Powder 15gm Bottle 1 APPLIC TOPICAL ×3 (06:36→21:41)
[2020-11-24] MEDS: Insulin Lispro 100 UNIT/ML INSULN.PEN SC ×3 (07:59→17:24)
[2020-11-24] MEDS: Aspirin 81 MG TAB.CHEW PO (08:01)
[2020-11-24] MEDS: Allopurinol 100 MG Tablet PO (08:01)
[2020-11-24 11:20] LABS: Bedside Glucose 179 mg/dL (70-110)
[2020-11-24] MEDS: 0.9% Saline Lock 10 ML Syringe IV ×2 (11:50→18:56)
[2020-11-24] MEDS: Furosemide 40 MG/4 ML Vial IV ×2 (11:50→18:56)
--- NOTE | 2020-11-24 15:59 | NURSING ---
PT STATED HE UPDATES FAMILY
[2020-11-24 16:11] LABS: Bedside Glucose 215 mg/dL (70-110)
[2020-11-24] MEDS: Tamsulosin HCl 0.4 MG Capsule PO (17:27)
[2020-11-24 21:21] LABS: Bedside Glucose 238 mg/dL (70-110)
[2020-11-24] MEDS: Atorvastatin Calcium 80 MG Tablet PO (21:40)
[2020-11-25] VITALS (7 sets, daily range): BP systolic 107–150; BP diastolic 53–63; PULSE 58–71; RESP 18; TEMP 36.1–36.2; O2SAT 96–99
[2020-11-25] MEDS: Senna/Docusate Sodium 1 Tablet PO ×2 (05:06→17:26)
[2020-11-25] MEDS: Doxycycline 100 MG CAPSULE PO ×2 (05:06→17:24)
[2020-11-25] MEDS: Carvedilol 25 MG Tablet 50 MG PO ×2 (05:06→17:25)
[2020-11-25] MEDS: cloNIDine HCl 0.1 MG Tablet 0.3 MG PO ×2 (05:06→17:24)
[2020-11-25] MEDS: Menthol/Lanolin/Calamine/Znox 113 GM Tube 1 APPLIC TOPICAL ×2 (05:06→22:23)
[2020-11-25] MEDS: Cefdinir 300 MG Capsule PO ×2 (05:06→17:26)
[2020-11-25] MEDS: Nystatin Powder 15gm Bottle 1 APPLIC TOPICAL ×3 (05:07→22:23)
[2020-11-25] MEDS: hydrALAZINE 25 MG Tablet PO ×3 (05:07→22:19)
[2020-11-25] MEDS: Fluticasone 0.05% 1 SPRAY NASAL.SRY 2 SPRAY NASAL (05:09)
[2020-11-25] MEDS: Umeclidinium Bromide Inhaler 1 PUFF IH (05:09)
[2020-11-25 06:21] LABS: Bedside Glucose 170 mg/dL (70-110)
[2020-11-25] MEDS: Insulin Lispro 100 UNIT/ML INSULN.PEN SC ×3 (08:20→17:21)
[2020-11-25] MEDS: Aspirin 81 MG TAB.CHEW PO (08:21)
[2020-11-25] MEDS: Allopurinol 100 MG Tablet PO (08:22)
--- NOTE | 2020-11-25 10:23 | NURSING ---
wound photo: left lower leg (medial)
--- NOTE | 2020-11-25 10:24 | NURSING ---
wound photo: left lateral lower leg
--- NOTE | 2020-11-25 10:25 | NURSING ---
wound photo: right lower leg
[2020-11-25 10:51] LABS: Bedside Glucose 256 mg/dL (70-110)
[2020-11-25] MEDS: 0.9% Saline Lock 10 ML Syringe IV (10:54)
--- NOTE | 2020-11-25 11:01 | NURSING ---
gigirn/wound nurse changed pt dressings to legs. see new order.
--- NOTE | 2020-11-25 11:07 | NURSING ---
dr vines notified of saline lock going bad, pt requesting not to be stuck again. new order to DC IV lasix and change to PO, but educated pt on needing to keep legs up on 3 pillows while in bed above heart at night per dr vines request. pt verbalized understanding.
[2020-11-25] MEDS: Furosemide 40 MG Tablet PO ×2 (11:31→17:26)
--- NOTE | 2020-11-25 14:35 | NURSING ---
PT STATED HE UPDATES FAMILY
[2020-11-25 16:50] LABS: Bedside Glucose 210 mg/dL (70-110)
[2020-11-25] MEDS: Tamsulosin HCl 0.4 MG Capsule PO (17:25)
[2020-11-25 21:36] LABS: Bedside Glucose 255 mg/dL (70-110)
[2020-11-25] MEDS: Atorvastatin Calcium 80 MG Tablet PO (22:20)
[2020-11-26] VITALS (7 sets, daily range): BP systolic 142–143; BP diastolic 49–63; PULSE 60–77; RESP 18; TEMP 36.3–37.1; O2SAT 96–100
[2020-11-26 06:05] LABS: Absolute Lymphocyte Count 0.35 X10^3/uL (0.83-4.51); Absolute Neutrophil Count 3.8 X10^3/uL (2.0-7.7); Basophil# 0.02 X10^3/uL; Basophil% 0.4 % (0-1); Eosinophils% 4.1 % (0-5); Hematocrit 28.5 % (40-54); Hemoglobin 8.8 g/dL (13.0-16.5); Lymphocyte # 0.35 X10^3/ul (4.0); Lymphocyte % 7.2 % (19-41); Mean Corp Hgb Conc 30.9 g/dL (32-36); Mean Corpuscular Hgb 32.2 pg (27.0-32.0); Mean Corpuscular Volume 104.4 fL (80-94); Mean Platelet Vol. 10.4 fl (6.2-12.0); Monocyte# 0.48 X10^3/uL; Monocyte% 9.9 % (0-10); NRBC Flagged by Analyzer 0 % (0-5); Neutrophil # 3.76 X10^3/uL (2.7-7.7); POSITIVE COUNT YES; POSITIVE DIFFERENTIAL YES; POSITIVE MORPHOLOGY YES; Platelet Count 85 K/mm3 (150-450); RBC Distribution Width CV 17.8 % (11.6-14.6); RBC Distribution Width SD 66.6 fl (35.1-43.9); Red Blood Count 2.73 M/mm3 (4.6-6.2); White Blood Count 4.8 K/mm3 (4.4-11.0)
[2020-11-26 06:11] LABS: Differential Indicated SCAN CRITERIA MET
[2020-11-26 06:16] LABS: Bedside Glucose 144 mg/dL (70-110)
[2020-11-26] MEDS: Carvedilol 25 MG Tablet 50 MG PO ×2 (06:28→17:14)
[2020-11-26] MEDS: cloNIDine HCl 0.1 MG Tablet 0.3 MG PO ×2 (06:29→17:14)
[2020-11-26] MEDS: hydrALAZINE 25 MG Tablet PO ×3 (06:29→21:53)
[2020-11-26] MEDS: Senna/Docusate Sodium 1 Tablet PO ×2 (06:29→17:14)
[2020-11-26] MEDS: Fluticasone 0.05% 1 SPRAY NASAL.SRY 2 SPRAY NASAL (06:31)
[2020-11-26] MEDS: Umeclidinium Bromide Inhaler 1 PUFF IH (06:31)
[2020-11-26] MEDS: Nystatin Powder 15gm Bottle 1 APPLIC TOPICAL ×3 (06:35→21:54)
[2020-11-26] MEDS: Menthol/Lanolin/Calamine/Znox 113 GM Tube 1 APPLIC TOPICAL ×2 (06:36→17:17)
[2020-11-26 06:46] LABS: Anion Gap 5 (5-15); BUN 94 mg/dL (7-18); BUN/Creat Ratio 35.3 RATIO (10-20); Calcium,Total 8.6 mg/dL (8.5-10.1); Chloride 106 mmol/L (98-107); Creatinine, Serum 2.66 mg/dL (0.70-1.30); EST Glomerular Filtration Rate 25 mL/min (>60); Est Glom Filt Rate - Afr Amer 31 mL/min (>60); Estimated Creatinine Clearance 25.92 ml/min; Glucose 147 mg/dL (74-106); Potassium 4.3 mmol/L (3.5-5.1); Sodium Level 141 mmol/L (136-145)
[2020-11-26] MEDS: Aspirin 81 MG TAB.CHEW PO (08:06)
[2020-11-26] MEDS: Allopurinol 100 MG Tablet PO (08:07)
[2020-11-26] MEDS: Insulin Lispro 100 UNIT/ML INSULN.PEN SC ×3 (08:07→17:13)
[2020-11-26] MEDS: Furosemide 40 MG Tablet PO ×2 (09:59→17:14)
[2020-11-26 11:06] LABS: Bedside Glucose 215 mg/dL (70-110)
[2020-11-26 16:10] LABS: Bedside Glucose 246 mg/dL (70-110)
[2020-11-26] MEDS: Tamsulosin HCl 0.4 MG Capsule PO (17:14)
[2020-11-26 21:41] LABS: Bedside Glucose 269 mg/dL (70-110)
[2020-11-26] MEDS: Atorvastatin Calcium 80 MG Tablet PO (21:54)
[2020-11-27 05:00] VITALS: BP 153/68; PULSE 67; RESP 18; TEMP 36.6; O2SAT 93
[2020-11-27 06:15] LABS: Bedside Glucose 183 mg/dL (70-110)
[2020-11-27] MEDS: Senna/Docusate Sodium 1 Tablet PO ×2 (06:27→17:45)
[2020-11-27] MEDS: cloNIDine HCl 0.1 MG Tablet 0.3 MG PO ×2 (06:27→17:44)
[2020-11-27] MEDS: Carvedilol 25 MG Tablet 50 MG PO ×2 (06:27→17:44)
[2020-11-27 06:28] VITALS: BP 153/68; PULSE 67
[2020-11-27] MEDS: hydrALAZINE 25 MG Tablet PO ×3 (06:28→21:14)
[2020-11-27] MEDS: Umeclidinium Bromide Inhaler 1 PUFF IH (06:28)
[2020-11-27] MEDS: Fluticasone 0.05% 1 SPRAY NASAL.SRY 2 SPRAY NASAL (06:28)
[2020-11-27] MEDS: Menthol/Lanolin/Calamine/Znox 113 GM Tube 1 APPLIC TOPICAL ×3 (06:31→21:16)
[2020-11-27] MEDS: Nystatin Powder 15gm Bottle 1 APPLIC TOPICAL ×3 (06:32→21:16)
[2020-11-27 07:14] VITALS: O2SAT 99
[2020-11-27] MEDS: Insulin Lispro 100 UNIT/ML INSULN.PEN 10 UNIT SC ×3 (08:07→17:41)
[2020-11-27] MEDS: Aspirin 81 MG TAB.CHEW PO (08:09)
[2020-11-27] MEDS: Allopurinol 100 MG Tablet PO (08:09)
[2020-11-27] MEDS: Furosemide 40 MG Tablet PO ×2 (09:32→17:45)
[2020-11-27 10:55] LABS: Bedside Glucose 225 mg/dL (70-110)
[2020-11-27 14:10] VITALS: BP 154/63; PULSE 67; RESP 16; TEMP 36.4; O2SAT 98
[2020-11-27 14:34] VITALS: BP 154/63; PULSE 67
--- NOTE | 2020-11-27 14:44 | NURSING ---
gigirn/wound nurse in to change pt legs today at 1420.
[2020-11-27 17:21] LABS: Bedside Glucose 237 mg/dL (70-110)
[2020-11-27] MEDS: Tamsulosin HCl 0.4 MG Capsule PO (17:44)
[2020-11-27 21:14] VITALS: BP 145/51; PULSE 61
[2020-11-27] MEDS: Atorvastatin Calcium 80 MG Tablet PO (21:14)
[2020-11-27 22:11] LABS: Bedside Glucose 209 mg/dL (70-110)
[2020-11-28] VITALS (7 sets, daily range): BP systolic 106–135; BP diastolic 50–55; PULSE 57–75; RESP 18; TEMP 36.6; O2SAT 96–98
[2020-11-28] MEDS: hydrALAZINE 25 MG Tablet PO ×3 (05:39→22:34)
[2020-11-28] MEDS: cloNIDine HCl 0.1 MG Tablet 0.3 MG PO ×2 (05:39→17:45)
[2020-11-28] MEDS: Fluticasone 0.05% 1 SPRAY NASAL.SRY 2 SPRAY NASAL (05:39)
[2020-11-28] MEDS: Carvedilol 25 MG Tablet 50 MG PO ×2 (05:39→17:45)
[2020-11-28] MEDS: Umeclidinium Bromide Inhaler 1 PUFF IH (05:39)
[2020-11-28] MEDS: Senna/Docusate Sodium 1 Tablet PO (05:40)
[2020-11-28] MEDS: Nystatin Powder 15gm Bottle 1 APPLIC TOPICAL ×3 (05:40→22:33)
[2020-11-28 06:30] LABS: Bedside Glucose 124 mg/dL (70-110)
[2020-11-28] MEDS: Allopurinol 100 MG Tablet PO (08:06)
[2020-11-28] MEDS: Aspirin 81 MG TAB.CHEW PO (08:06)
[2020-11-28] MEDS: Insulin Lispro 100 UNIT/ML INSULN.PEN 15 UNIT SC ×2 (08:07→11:10)
[2020-11-28] MEDS: Furosemide 40 MG Tablet PO (10:02)
[2020-11-28 10:36] LABS: Bedside Glucose 208 mg/dL (70-110)
--- NOTE | 2020-11-28 11:40 | NURSING ---
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 Upon assessment of insulin pen this nurse noticed cracks inside the canister holding the insulin and insulin was leaking out the back of the pen. This nurse unsure how much insulin the pt received out of his 15 units and how much exited through the back of the pen. RN updated, will recheck BS after lunch.
[2020-11-28 13:15] LABS: Bedside Glucose 300 mg/dL (70-110)
[2020-11-28 16:41] LABS: Bedside Glucose 251 mg/dL (70-110)
[2020-11-28] MEDS: Menthol/Lanolin/Calamine/Znox 113 GM Tube 1 APPLIC TOPICAL (17:45)
[2020-11-28] MEDS: Furosemide 80 MG Tablet PO (17:47)
[2020-11-28] MEDS: Tamsulosin HCl 0.4 MG Capsule PO (17:48)
[2020-11-28] MEDS: Insulin Lispro 100 UNIT/ML INSULN.PEN 10 UNIT SC (17:53)
[2020-11-28 21:35] LABS: Bedside Glucose 292 mg/dL (70-110)
[2020-11-28] MEDS: Atorvastatin Calcium 80 MG Tablet PO (22:32)
--- NOTE | 2020-11-28 22:52 | PCA ---
Pt declines to wash up or change gown this evening stating he was too tired. em SR VICE PRESIDENT
[2020-11-29 05:00] VITALS: BP 140/60; PULSE 61; RESP 18; TEMP 36.6; O2SAT 96
[2020-11-29 05:56] VITALS: BP 140/60; PULSE 61
[2020-11-29] MEDS: hydrALAZINE 25 MG Tablet PO ×3 (05:56→20:45)
[2020-11-29] MEDS: Fluticasone 0.05% 1 SPRAY NASAL.SRY 2 SPRAY NASAL (05:56)
[2020-11-29] MEDS: Senna/Docusate Sodium 1 Tablet PO ×2 (05:57→17:19)
[2020-11-29] MEDS: cloNIDine HCl 0.1 MG Tablet 0.3 MG PO ×2 (05:57→17:18)
[2020-11-29] MEDS: Carvedilol 25 MG Tablet 50 MG PO ×2 (05:57→17:18)
[2020-11-29] MEDS: Umeclidinium Bromide Inhaler 1 PUFF IH (05:59)
[2020-11-29] MEDS: Nystatin Powder 15gm Bottle 1 APPLIC TOPICAL ×3 (06:02→20:46)
[2020-11-29] MEDS: Menthol/Lanolin/Calamine/Znox 113 GM Tube 1 APPLIC TOPICAL ×2 (06:07→17:18)
[2020-11-29 06:16] LABS: Bedside Glucose 160 mg/dL (70-110)
[2020-11-29 06:52] VITALS: O2SAT 97
[2020-11-29 07:44] LABS: BUN 26 mg/dL (7-18); Creatinine, Serum 0.85 mg/dL (0.70-1.30); EST Glomerular Filtration Rate 95 mL/min (>60); Estimated Creatinine Clearance 81.11 ml/min; Glucose 112 mg/dL (74-106)
[2020-11-29 07:45] LABS: Anion Gap 5 (5-15); BUN/Creat Ratio 30.7 RATIO (10-20); Calcium,Total 8.5 mg/dL (8.5-10.1); Chloride 108 mmol/L (98-107); Est Glom Filt Rate - Afr Amer 114 mL/min (>60); Sodium Level 140 mmol/L (136-145)
[2020-11-29] MEDS: Aspirin 81 MG TAB.CHEW PO (09:14)
[2020-11-29] MEDS: Insulin Lispro 100 UNIT/ML INSULN.PEN 10 UNIT SC ×3 (09:15→17:17)
[2020-11-29] MEDS: Allopurinol 100 MG Tablet PO (09:16)
[2020-11-29] MEDS: Furosemide 80 MG Tablet PO (09:16)
[2020-11-29 11:01] LABS: Bedside Glucose 214 mg/dL (70-110)
[2020-11-29 11:33] LABS: Anion Gap 10 (5-15); BUN 99 mg/dL (7-18); BUN/Creat Ratio 34.1 RATIO (10-20); Calcium,Total 8.6 mg/dL (8.5-10.1); Chloride 105 mmol/L (98-107); EST Glomerular Filtration Rate 23 mL/min (>60); Est Glom Filt Rate - Afr Amer 28 mL/min (>60); Estimated Creatinine Clearance 23.77 ml/min; Glucose 206 mg/dL (74-106); Potassium 4.4 mmol/L (3.5-5.1); Sodium Level 139 mmol/L (136-145)
[2020-11-29 14:15] VITALS: PULSE 60
[2020-11-29 14:25] VITALS: BP 158/46; PULSE 60; RESP 16; TEMP 36.3; O2SAT 98
[2020-11-29 16:21] LABS: Bedside Glucose 181 mg/dL (70-110)
[2020-11-29] MEDS: Tamsulosin HCl 0.4 MG Capsule PO (17:18)
[2020-11-29] MEDS: Furosemide 40 MG Tablet PO (17:19)
[2020-11-29 20:45] VITALS: BP 129/47; PULSE 66
[2020-11-29] MEDS: Atorvastatin Calcium 80 MG Tablet PO (20:45)
[2020-11-29 21:41] LABS: Bedside Glucose 240 mg/dL (70-110)
[2020-11-30] VITALS (8 sets, daily range): BP systolic 128–134; BP diastolic 51–54; PULSE 55–74; RESP 18; TEMP 36.6–36.7; O2SAT 93–98
[2020-11-30] MEDS: Fluticasone 0.05% 1 SPRAY NASAL.SRY 2 SPRAY NASAL (05:41)
[2020-11-30] MEDS: Umeclidinium Bromide Inhaler 1 PUFF IH (05:41)
[2020-11-30] MEDS: Senna/Docusate Sodium 1 Tablet PO ×2 (05:42→17:33)
[2020-11-30] MEDS: cloNIDine HCl 0.1 MG Tablet 0.3 MG PO ×2 (05:42→17:33)
[2020-11-30] MEDS: Carvedilol 25 MG Tablet 50 MG PO ×2 (05:42→17:33)
[2020-11-30] MEDS: hydrALAZINE 25 MG Tablet PO ×3 (05:43→21:19)
[2020-11-30] MEDS: Nystatin Powder 15gm Bottle 1 APPLIC TOPICAL ×3 (05:44→21:19)
[2020-11-30] MEDS: Menthol/Lanolin/Calamine/Znox 113 GM Tube 1 APPLIC TOPICAL ×2 (05:46→17:33)
[2020-11-30 06:16] LABS: Bedside Glucose 171 mg/dL (70-110)
[2020-11-30 08:07] LABS: Anion Gap 8 (5-15); BUN 101 mg/dL (7-18); BUN/Creat Ratio 36.1 RATIO (10-20); Calcium,Total 8.8 mg/dL (8.5-10.1); Chloride 104 mmol/L (98-107); EST Glomerular Filtration Rate 24 mL/min (>60); Est Glom Filt Rate - Afr Amer 29 mL/min (>60); Estimated Creatinine Clearance 24.62 ml/min; Glucose 164 mg/dL (74-106); Potassium 4.5 mmol/L (3.5-5.1); Sodium Level 138 mmol/L (136-145)
--- NOTE | 2020-11-30 08:13 | NURSING ---
DR VILLAFUERTE NOTIFIED OF BUN 101, NO NEW ORDERS AT THIS TIME. CONTINUE PLAN OF CARE.
[2020-11-30] MEDS: Aspirin 81 MG TAB.CHEW PO (08:17)
[2020-11-30] MEDS: Insulin Lispro 100 UNIT/ML INSULN.PEN 10 UNIT SC ×3 (08:17→17:32)
[2020-11-30] MEDS: Allopurinol 100 MG Tablet PO (08:17)
[2020-11-30] MEDS: Furosemide 40 MG Tablet PO ×2 (08:17→17:33)
[2020-11-30 10:56] LABS: Bedside Glucose 242 mg/dL (70-110)
--- NOTE | 2020-11-30 15:09 | NURSING ---
dressings changed to BLEs. pt was able to lift legs off floor for this nurse to do dressings while pt sitting in recliner chair. much less seeping noted today.
[2020-11-30 16:45] LABS: Bedside Glucose 174 mg/dL (70-110)
[2020-11-30] MEDS: Tamsulosin HCl 0.4 MG Capsule PO (17:33)
[2020-11-30] MEDS: Atorvastatin Calcium 80 MG Tablet PO (21:16)
[2020-11-30 21:36] LABS: Bedside Glucose 258 mg/dL (70-110)
[2020-12-01 04:05] VITALS: BP 154/62; PULSE 68; RESP 20; TEMP 36.7; O2SAT 97
[2020-12-01 04:06] VITALS: BP 154/62; PULSE 68
[2020-12-01] MEDS: Senna/Docusate Sodium 1 Tablet PO ×2 (04:06→18:24)
[2020-12-01] MEDS: hydrALAZINE 25 MG Tablet PO ×3 (04:06→21:11)
[2020-12-01] MEDS: Carvedilol 25 MG Tablet 50 MG PO ×2 (04:07→18:23)
[2020-12-01] MEDS: cloNIDine HCl 0.1 MG Tablet 0.3 MG PO ×2 (04:08→18:23)
[2020-12-01] MEDS: Umeclidinium Bromide Inhaler 1 PUFF IH (04:09)
[2020-12-01] MEDS: Fluticasone 0.05% 1 SPRAY NASAL.SRY 2 SPRAY NASAL (04:09)
[2020-12-01] MEDS: Menthol/Lanolin/Calamine/Znox 113 GM Tube 1 APPLIC TOPICAL ×2 (04:12→18:25)
[2020-12-01] MEDS: Nystatin Powder 15gm Bottle 1 APPLIC TOPICAL ×3 (04:13→21:11)
[2020-12-01] MEDS: Polyethylene Glycol 3350 17 GM PACKET PO (04:14)
[2020-12-01 06:15] LABS: Bedside Glucose 176 mg/dL (70-110)
[2020-12-01] MEDS: Insulin Lispro 100 UNIT/ML INSULN.PEN 10 UNIT SC ×2 (08:00→11:16)
[2020-12-01] MEDS: Allopurinol 100 MG Tablet PO (08:00)
[2020-12-01] MEDS: Aspirin 81 MG TAB.CHEW PO (08:00)
[2020-12-01] MEDS: Furosemide 40 MG Tablet PO ×2 (09:26→18:24)
[2020-12-01 11:26] LABS: Bedside Glucose 259 mg/dL (70-110)
[2020-12-01 14:27] VITALS: PULSE 68
[2020-12-01 14:28] VITALS: BP 147/48; PULSE 64; RESP 16; TEMP 36.8; O2SAT 98
--- NOTE | 2020-12-01 14:54 | NURSING ---
wound photo: left lower leg
[2020-12-01 14:55] LABS: Bedside Glucose 282 mg/dL (70-110)
--- NOTE | 2020-12-01 14:55 | NURSING ---
wound photo: right lower leg
[2020-12-01 15:05] VITALS: BP 170/62; PULSE 74; RESP 18; TEMP 36.5; O2SAT 93
--- NOTE | 2020-12-01 15:06 | NURSING ---
Pt returned from therapy room dry heaving uncontrollably and unable to finish therapy. VS obtained BP 170/62, SPO2 93% 1L, temporal temp 97.7, pulse 74, RR 18, BS 282, pt states noticeably shaky and states he is nauseous and cold, pt given gingerale and saltine crackers and warmed blanket. Pt stated he was starting to feel better. RN updated.
--- NOTE | 2020-12-01 16:12 | NURSING ---
Pt returned from family visit, staff came and got this nurse asking to access pt. Pt was shaking and dry heaving again at this time stating he felt awful and was still freezing, VS 97.7 temporal temp, HR 77, BP 171/64, RR 20, Spo2 92% 2L. RN and updated. N.O. KUB, CBC, BMP, U/a C&S, 1 Liter IV bolus NS, pt CHF and 1500cc fluid restriction clarified with Dr. Mchugh and he wishes to continue tx plan as stated and administer bolus.
[2020-12-01] MEDS: Ondansetron 8 MG Tablet PO (16:15)
[2020-12-01 16:23] LABS: Absolute Lymphocyte Count 0.24 X10^3/uL (0.83-4.51); Absolute Neutrophil Count 10.2 X10^3/uL (2.0-7.7); Basophil# 0.03 X10^3/uL; Basophil% 0.3 % (0-1); Eosinophil# 0.15 X10^3/uL; Eosinophils% 1.3 % (0-5); Hematocrit 31.8 % (40-54); Hemoglobin 10.5 g/dL (13.0-16.5); Lymphocyte # 0.24 X10^3/ul (4.0); Lymphocyte % 2.1 % (19-41); Mean Corpuscular Hgb 35.5 pg (27.0-32.0); Mean Corpuscular Volume 107.4 fL (80-94); Mean Platelet Vol. 11.3 fl (6.2-12.0); Monocyte# 0.76 X10^3/uL; Monocyte% 6.6 % (0-10); NRBC Flagged by Analyzer 0 % (0-5); Neutrophil # 10.19 X10^3/uL (2.7-7.7); Neutrophil % 89.1 % (47-70); POSITIVE COUNT YES; POSITIVE DIFFERENTIAL YES; POSITIVE MORPHOLOGY YES; Platelet Count 84 K/mm3 (150-450); RBC Distribution Width CV 19.7 % (11.6-14.6); RBC Distribution Width SD 71.6 fl (35.1-43.9); Red Blood Count 2.96 M/mm3 (4.6-6.2); White Blood Count 11.4 K/mm3 (4.4-11.0)
[2020-12-01 16:25] LABS: Differential Indicated SCAN CRITERIA MET
--- NOTE | 2020-12-01 16:30 | RAD_ITS ---
STUDY: X-RAY - ABDOMEN/PELVIS REASON FOR EXAM: Male, 70 years old. Nausea TECHNIQUE: 4 views COMPARISON: None. FINDINGS: Right pleural effusion. There is an ileus pattern. Colonic fecal retention. There is no demonstrated free abdominal air. Normal soft tissue structures. Degenerative vertebral changes. RAD/Abdomen Single View IMPRESSION: Probable ileus. Diffuse fecal retention in the colon. Right pleural effusion. Electronically Signed: Jonatan Connolly DO at 17:05 EST Tel [phone], Service support ,
[2020-12-01 16:36] LABS: Anion Gap 7 (5-15); BUN 103 mg/dL (7-18); BUN/Creat Ratio 34.2 RATIO (10-20); Calcium,Total 8.9 mg/dL (8.5-10.1); Chloride 103 mmol/L (98-107); Creatinine, Serum 3.01 mg/dL (0.70-1.30); EST Glomerular Filtration Rate 22 mL/min (>60); Est Glom Filt Rate - Afr Amer 27 mL/min (>60); Estimated Creatinine Clearance 22.91 ml/min; Glucose 233 mg/dL (74-106); Potassium 4.8 mmol/L (3.5-5.1); Sodium Level 135 mmol/L (136-145)
[2020-12-01 16:47] LABS: Anisocytosis 1+
[2020-12-01] MEDS: 0.9% Normal Saline 1,000 ML 1000 ML IV (16:52)
[2020-12-01 17:00] LABS: Bedside Glucose 215 mg/dL (70-110)
[2020-12-01] MEDS: Tamsulosin HCl 0.4 MG Capsule PO (18:23)
--- NOTE | 2020-12-01 18:59 | NURSING ---
SSE given, pt had moderate amount of liquid expelled after enema, able to retain most of it. will monitor effect
[2020-12-01 21:11] VITALS: BP 146/47; PULSE 72
[2020-12-01] MEDS: Atorvastatin Calcium 80 MG Tablet PO (21:11)
[2020-12-01 21:50] LABS: Bedside Glucose 186 mg/dL (70-110)
[2020-12-01] MEDS: Lactulose 20 GM/30 ML UDC PO (23:59)
[2020-12-02] VITALS (8 sets, daily range): BP systolic 124–155; BP diastolic 47–56; PULSE 57–68; RESP 16–18; TEMP 36.2–37.1; O2SAT 89–96
[2020-12-02] MEDS: Lactulose 20 GM/30 ML UDC 200 GM RC
--- NOTE | 2020-12-02 01:23 | NURSING ---
Lactulose enema given, positive soft thick large result, pt tolerated well, reported no discomfort. Pt still working on getting P.O lactulose down. RN aware.
[2020-12-02 06:20] LABS: Bedside Glucose 178 mg/dL (70-110)
[2020-12-02] MEDS: Fluticasone 0.05% 1 SPRAY NASAL.SRY 2 SPRAY NASAL (06:52)
[2020-12-02] MEDS: Umeclidinium Bromide Inhaler 1 PUFF IH (06:53)
[2020-12-02] MEDS: Polyethylene Glycol 3350 17 GM PACKET PO (06:53)
[2020-12-02] MEDS: Menthol/Lanolin/Calamine/Znox 113 GM Tube 1 APPLIC TOPICAL ×2 (06:57→17:36)
[2020-12-02] MEDS: Ondansetron 8 MG Tablet PO ×2 (06:58→18:30)
[2020-12-02 08:08] LABS: Bacteria 0 SEEN /hpf (None Seen); Mucous, Urine 0 SEEN /hpf (<or=2+); Red Blood Cells-Urine 0 SEEN /hpf (0-5); White Blood Cells 0 SEEN /hpf (0-5)
[2020-12-02 08:13] LABS: Color, Urine Yellow (Yellow); Glucose, Dipstick 100 mg/dl (Normal); Ketone-Dipstick Negative (Negative); Leukocyte Esterase-Dipstick Negative /ul (Negative); Nitrite-Dipstick Negative (Negative); Occult Blood-Urine Negative /ul (Negative); Protein-Dipstick 15 mg/dl (Negative); Specific Gravity, Urine 1.015 (1.002-1.030); Urine Bilirubin Dipstick Negative (Negative); Urine Clarity Clear (Clear); Urine Urobilinogen Normal (Normal)
[2020-12-02 08:22] LABS: Squamous Epithelial Cells - UA 0-5 SEEN /hpf (0-5)
[2020-12-02] MEDS: hydrALAZINE 25 MG Tablet PO ×3 (08:59→22:22)
[2020-12-02] MEDS: cloNIDine HCl 0.1 MG Tablet 0.3 MG PO ×2 (09:01→17:26)
[2020-12-02] MEDS: Carvedilol 25 MG Tablet 50 MG PO ×2 (09:02→17:26)
[2020-12-02] MEDS: Senna/Docusate Sodium 1 Tablet PO ×2 (09:02→17:27)
[2020-12-02] MEDS: Aspirin 81 MG TAB.CHEW PO (09:03)
[2020-12-02] MEDS: Allopurinol 100 MG Tablet PO (09:03)
[2020-12-02] MEDS: Nystatin Powder 15gm Bottle 1 APPLIC TOPICAL ×3 (09:05→22:24)
--- NOTE | 2020-12-02 09:12 | NURSING ---
PT REFUSED MORNING HUMALOG AND LANTUS DO TO THROWING UP AND NOT EATING. RN AWARE.
--- NOTE | 2020-12-02 12:02 | NURSING ---
pt returned from appt today, no new orders, f/u appt on 12/09 @ 1955 for labs & 0945 injection.
[2020-12-02] MEDS: Insulin Lispro 100 UNIT/ML INSULN.PEN 10 UNIT SC ×2 (12:06→17:30)
[2020-12-02] MEDS: Furosemide 40 MG Tablet PO ×2 (12:06→17:26)
[2020-12-02 12:11] LABS: Bedside Glucose 207 mg/dL (70-110)
--- NOTE | 2020-12-02 13:57 | NURSING ---
unable to flush saline lock in right wrist. ok per rn to d/c.
--- NOTE | 2020-12-02 15:11 | NURSING ---
pt stated he up dates family
--- NOTE | 2020-12-02 15:27 | NURSING ---
gigirn/wound nurse changed pt dressings to legs.
--- NOTE | 2020-12-02 16:18 | NURSING ---
positive results from last night lactulose. med soft
[2020-12-02 16:30] LABS: Bedside Glucose 256 mg/dL (70-110)
[2020-12-02] MEDS: Tamsulosin HCl 0.4 MG Capsule PO (17:25)
--- NOTE | 2020-12-02 17:48 | NURSING ---
PT THROWING UP HAMBURGER FROM SUPPER. WILL GIVE PRN ZOFRAN. RN AWARE.
[2020-12-02] MEDS: Lactulose 20 GM/30 ML UDC PO (18:35)
[2020-12-02 21:26] LABS: Bedside Glucose 214 mg/dL (70-110)
[2020-12-02] MEDS: Atorvastatin Calcium 80 MG Tablet PO (22:23)
[2020-12-03] VITALS (7 sets, daily range): BP systolic 115–146; BP diastolic 44–61; PULSE 56–67; RESP 18–20; TEMP 36.5–36.6; O2SAT 93–99
[2020-12-03 06:00] LABS: Absolute Lymphocyte Count 0.35 X10^3/uL (0.83-4.51); Absolute Neutrophil Count 9.1 X10^3/uL (2.0-7.7); Basophil# 0.02 X10^3/uL; Basophil% 0.2 % (0-1); Eosinophil# 0.06 X10^3/uL; Eosinophils% 0.6 % (0-5); Hematocrit 28.3 % (40-54); Hemoglobin 8.4 g/dL (13.0-16.5); Lymphocyte # 0.35 X10^3/ul (4.0); Lymphocyte % 3.4 % (19-41); Mean Corp Hgb Conc 29.7 g/dL (32-36); Mean Corpuscular Hgb 31.7 pg (27.0-32.0); Mean Corpuscular Volume 106.8 fL (80-94); Mean Platelet Vol. 11.8 fl (6.2-12.0); Monocyte# 0.69 X10^3/uL; Monocyte% 6.7 % (0-10); NRBC Flagged by Analyzer 0 % (0-5); Neutrophil # 9.12 X10^3/uL (2.7-7.7); Neutrophil % 88.2 % (47-70); POSITIVE COUNT YES; POSITIVE DIFFERENTIAL YES; POSITIVE MORPHOLOGY YES; Platelet Count 69 K/mm3 (150-450); RBC Distribution Width CV 18.5 % (11.6-14.6); RBC Distribution Width SD 72.3 fl (35.1-43.9); Red Blood Count 2.65 M/mm3 (4.6-6.2); White Blood Count 10.3 K/mm3 (4.4-11.0)
[2020-12-03 06:13] LABS: Differential Indicated SCAN CRITERIA MET
[2020-12-03 06:17] LABS: Anisocytosis 1+; Differential Comment SCANNED; Macrocytosis 1+
[2020-12-03 06:18] LABS: Acanthocytes RARE; Microcytosis RARE
[2020-12-03 06:19] LABS: Hypochromasia RARE; Ovalocyte RARE
[2020-12-03 06:20] LABS: Platelet Estimate MOD DEC (ADEQ)
[2020-12-03 06:21] LABS: Bedside Glucose 191 mg/dL (70-110)
[2020-12-03] MEDS: Senna/Docusate Sodium 1 Tablet PO ×2 (06:25→17:15)
[2020-12-03] MEDS: Umeclidinium Bromide Inhaler 1 PUFF IH (06:26)
[2020-12-03] MEDS: Fluticasone 0.05% 1 SPRAY NASAL.SRY 2 SPRAY NASAL (06:27)
[2020-12-03] MEDS: Menthol/Lanolin/Calamine/Znox 113 GM Tube 1 APPLIC TOPICAL ×2 (06:27→17:22)
[2020-12-03] MEDS: Polyethylene Glycol 3350 17 GM PACKET PO (06:28)
[2020-12-03] MEDS: Nystatin Powder 15gm Bottle 1 APPLIC TOPICAL ×3 (06:29→22:12)
[2020-12-03 06:42] LABS: Anion Gap 7 (5-15); BUN 113 mg/dL (7-18); BUN/Creat Ratio 27.8 RATIO (10-20); Calcium,Total 8.5 mg/dL (8.5-10.1); Chloride 102 mmol/L (98-107); Creatinine, Serum 4.06 mg/dL (0.70-1.30); EST Glomerular Filtration Rate 16 mL/min (>60); Est Glom Filt Rate - Afr Amer 19 mL/min (>60); Estimated Creatinine Clearance 16.98 ml/min; Glucose 176 mg/dL (74-106); Potassium 5.4 mmol/L (3.5-5.1); Sodium Level 135 mmol/L (136-145)
--- NOTE | 2020-12-03 07:57 | RAD_ITS ---
STUDY: X-RAY - ABDOMEN/PELVIS REASON FOR EXAM: Male, 70 years old. Nausea. TECHNIQUE: Single AP view of the abdomen / pelvis. COMPARISON: None. FINDINGS: Normal visualized lung bases. There is a moderate amount of colonic fecal material. The visualized liver, spleen and kidneys are grossly normal in size and morphology. Atherosclerotic calcification of the iliac arteries. There are degenerative changes of the visualized lumbar spine. RAD/Abdomen Single View IMPRESSION: Moderate amount of fecal material is seen in the colon. Electronically Signed: Delvis Chilel MD at 15:36 EST , Service support ,
[2020-12-03] MEDS: 0.9% Normal Saline 1,000 ML 60 ML IV (08:53)
[2020-12-03] MEDS: Sodium Polystyrene Sulfonate 15 GM/60 ML UDC 30 GM PO (08:54)
[2020-12-03] MEDS: Aspirin 81 MG TAB.CHEW PO (08:55)
[2020-12-03] MEDS: Allopurinol 100 MG Tablet PO (08:55)
[2020-12-03] MEDS: Insulin Lispro 100 UNIT/ML INSULN.PEN 10 UNIT SC ×3 (08:57→17:13)
[2020-12-03] MEDS: Furosemide 40 MG Tablet PO ×2 (09:01→17:21)
[2020-12-03 11:05] LABS: Bedside Glucose 219 mg/dL (70-110)
[2020-12-03] MEDS: hydrALAZINE 25 MG Tablet PO ×2 (14:57→22:10)
[2020-12-03] MEDS: Ondansetron 8 MG Tablet PO (14:59)
--- NOTE | 2020-12-03 15:15 | NURSING ---
BLE dressings changed today by wound nurse
[2020-12-03 16:40] LABS: Bedside Glucose 163 mg/dL (70-110)
[2020-12-03] MEDS: Tamsulosin HCl 0.4 MG Capsule PO (17:15)
[2020-12-03] MEDS: cloNIDine HCl 0.1 MG Tablet 0.3 MG PO (17:21)
[2020-12-03] MEDS: Carvedilol 25 MG Tablet 50 MG PO (17:21)
[2020-12-03 21:51] LABS: Bedside Glucose 183 mg/dL (70-110)
[2020-12-03] MEDS: Atorvastatin Calcium 80 MG Tablet PO (22:10)
[2020-12-03] MEDS: Electrolyte Solution/Peg's 4000 ML 1000 ML PO (22:32)
[2020-12-04] VITALS (7 sets, daily range): BP systolic 101–152; BP diastolic 39–65; PULSE 60–66; RESP 16–18; TEMP 36.6–36.8; O2SAT 96–100
--- NOTE | 2020-12-04 02:43 | NURSING ---
N.O. 1L Gol[place] for moderate fecal impaction. Large liquid result
[2020-12-04] MEDS: Ondansetron 8 MG Tablet PO (03:22)
[2020-12-04] MEDS: 0.9% Saline Lock 10 ML Syringe IV (03:23)
[2020-12-04] MEDS: 0.9% Normal Saline 1,000 ML 60 ML IV ×2 (03:30→20:18)
[2020-12-04] MEDS: cloNIDine HCl 0.1 MG Tablet 0.3 MG PO ×2 (06:13→17:50)
[2020-12-04] MEDS: Umeclidinium Bromide Inhaler 1 PUFF IH (06:13)
[2020-12-04] MEDS: hydrALAZINE 25 MG Tablet PO ×2 (06:14→13:59)
[2020-12-04] MEDS: Carvedilol 25 MG Tablet 50 MG PO ×2 (06:14→17:50)
[2020-12-04] MEDS: Fluticasone 0.05% 1 SPRAY NASAL.SRY 2 SPRAY NASAL (06:16)
[2020-12-04] MEDS: Menthol/Lanolin/Calamine/Znox 113 GM Tube 1 APPLIC TOPICAL ×2 (06:23→20:19)
[2020-12-04] MEDS: Nystatin Powder 15gm Bottle 1 APPLIC TOPICAL ×3 (06:23→20:19)
[2020-12-04 06:26] LABS: Bedside Glucose 117 mg/dL (70-110)
[2020-12-04 06:43] LABS: Anion Gap 8 (5-15); BUN 110 mg/dL (7-18); BUN/Creat Ratio 26.7 RATIO (10-20); Calcium,Total 8.6 mg/dL (8.5-10.1); Chloride 103 mmol/L (98-107); Creatinine, Serum 4.12 mg/dL (0.70-1.30); EST Glomerular Filtration Rate 15 mL/min (>60); Est Glom Filt Rate - Afr Amer 18 mL/min (>60); Estimated Creatinine Clearance 16.73 ml/min; Glucose 118 mg/dL (74-106); Potassium 4.6 mmol/L (3.5-5.1); Sodium Level 138 mmol/L (136-145)
[2020-12-04] MEDS: Insulin Lispro 100 UNIT/ML INSULN.PEN 10 UNIT SC ×3 (07:58→17:47)
[2020-12-04] MEDS: Aspirin 81 MG TAB.CHEW PO (07:58)
[2020-12-04] MEDS: Allopurinol 100 MG Tablet PO (07:58)
[2020-12-04 11:05] LABS: Bedside Glucose 126 mg/dL (70-110)
[2020-12-04 16:11] LABS: Bedside Glucose 123 mg/dL (70-110)
[2020-12-04] MEDS: Tamsulosin HCl 0.4 MG Capsule PO (17:49)
[2020-12-04] MEDS: Senna/Docusate Sodium 1 Tablet PO (17:51)
[2020-12-04] MEDS: Acetaminophen 500 MG Tablet 1000 MG PO (17:55)
[2020-12-04] MEDS: Atorvastatin Calcium 80 MG Tablet PO (20:21)
[2020-12-04 21:36] LABS: Bedside Glucose 113 mg/dL (70-110)
[2020-12-05] VITALS (7 sets, daily range): BP systolic 120–151; BP diastolic 49–58; PULSE 62–66; RESP 16–20; TEMP 36.4–36.6; O2SAT 95–99
[2020-12-05] MEDS: Umeclidinium Bromide Inhaler 1 PUFF IH (05:50)
[2020-12-05] MEDS: Fluticasone 0.05% 1 SPRAY NASAL.SRY 2 SPRAY NASAL (05:50)
[2020-12-05] MEDS: Polyethylene Glycol 3350 17 GM PACKET PO (05:51)
[2020-12-05] MEDS: Senna/Docusate Sodium 1 Tablet PO ×2 (05:51→17:10)
[2020-12-05] MEDS: hydrALAZINE 25 MG Tablet PO ×2 (05:51→22:01)
[2020-12-05] MEDS: Carvedilol 25 MG Tablet 50 MG PO ×2 (05:51→17:14)
[2020-12-05] MEDS: cloNIDine HCl 0.1 MG Tablet 0.3 MG PO ×2 (05:51→17:13)
[2020-12-05] MEDS: Nystatin Powder 15gm Bottle 1 APPLIC TOPICAL ×3 (05:53→22:02)
[2020-12-05] MEDS: Menthol/Lanolin/Calamine/Znox 113 GM Tube 1 APPLIC TOPICAL ×2 (05:53→17:10)
[2020-12-05 06:15] LABS: Bedside Glucose 77 mg/dL (70-110)
[2020-12-05 06:32] LABS: Anion Gap 9 (5-15); BUN 106 mg/dL (7-18); BUN/Creat Ratio 26.4 RATIO (10-20); Calcium,Total 8.2 mg/dL (8.5-10.1); Chloride 105 mmol/L (98-107); Creatinine, Serum 4.01 mg/dL (0.70-1.30); EST Glomerular Filtration Rate 16 mL/min (>60); Est Glom Filt Rate - Afr Amer 19 mL/min (>60); Estimated Creatinine Clearance 17.19 ml/min; Glucose 78 mg/dL (74-106); Potassium 4.2 mmol/L (3.5-5.1); Sodium Level 139 mmol/L (136-145)
[2020-12-05] MEDS: Allopurinol 100 MG Tablet PO (08:01)
[2020-12-05] MEDS: Aspirin 81 MG TAB.CHEW PO (08:01)
[2020-12-05] MEDS: Insulin Lispro 100 UNIT/ML INSULN.PEN 10 UNIT SC ×3 (08:02→17:08)
[2020-12-05 10:51] LABS: Bedside Glucose 163 mg/dL (70-110)
[2020-12-05 16:25] LABS: Bedside Glucose 119 mg/dL (70-110)
[2020-12-05] MEDS: Tamsulosin HCl 0.4 MG Capsule PO (17:10)
[2020-12-05] MEDS: 0.9% Normal Saline 1,000 ML 75 ML IV (18:40)
[2020-12-05 21:35] LABS: Bedside Glucose 131 mg/dL (70-110)
[2020-12-05] MEDS: Atorvastatin Calcium 80 MG Tablet PO (22:02)
[2020-12-06 05:00] VITALS: BP 148/62; PULSE 66; RESP 18; TEMP 36.8; O2SAT 95
[2020-12-06 05:04] VITALS: BP 148/62; PULSE 66
[2020-12-06] MEDS: Carvedilol 25 MG Tablet 50 MG PO ×2 (05:04→17:26)
[2020-12-06] MEDS: Menthol/Lanolin/Calamine/Znox 113 GM Tube 1 APPLIC TOPICAL ×2 (05:04→20:47)
[2020-12-06] MEDS: cloNIDine HCl 0.1 MG Tablet 0.3 MG PO ×2 (05:04→17:25)
[2020-12-06] MEDS: Senna/Docusate Sodium 1 Tablet PO ×2 (05:04→17:27)
[2020-12-06] MEDS: hydrALAZINE 25 MG Tablet PO ×3 (05:04→20:49)
[2020-12-06] MEDS: Umeclidinium Bromide Inhaler 1 PUFF IH (05:05)
[2020-12-06] MEDS: Fluticasone 0.05% 1 SPRAY NASAL.SRY 2 SPRAY NASAL (05:05)
[2020-12-06] MEDS: Polyethylene Glycol 3350 17 GM PACKET PO (05:06)
[2020-12-06] MEDS: Nystatin Powder 15gm Bottle 1 APPLIC TOPICAL ×3 (05:06→20:50)
[2020-12-06] MEDS: 0.9% Normal Saline 1,000 ML 75 ML IV ×2 (05:16→18:59)
[2020-12-06 06:20] LABS: Bedside Glucose 72 mg/dL (70-110)
[2020-12-06 07:30] LABS: Anion Gap 7 (5-15); BUN 100 mg/dL (7-18); BUN/Creat Ratio 26.2 RATIO (10-20); Calcium,Total 8.2 mg/dL (8.5-10.1); Chloride 106 mmol/L (98-107); Creatinine, Serum 3.81 mg/dL (0.70-1.30); EST Glomerular Filtration Rate 17 mL/min (>60); Est Glom Filt Rate - Afr Amer 20 mL/min (>60); Glucose 65 mg/dL (74-106); Potassium 4.5 mmol/L (3.5-5.1); Sodium Level 140 mmol/L (136-145)
[2020-12-06] MEDS: Aspirin 81 MG TAB.CHEW PO (08:41)
[2020-12-06] MEDS: Allopurinol 100 MG Tablet PO (08:41)
[2020-12-06 11:00] VITALS: PULSE 63; RESP 18; O2SAT 98
[2020-12-06 11:36] LABS: Bedside Glucose 142 mg/dL (70-110)
[2020-12-06] MEDS: Insulin Lispro 100 UNIT/ML INSULN.PEN 10 UNIT SC ×2 (11:39→17:29)
[2020-12-06 13:37] VITALS: BP 141/60; PULSE 67
[2020-12-06 13:47] VITALS: BP 141/60; PULSE 67
--- NOTE | 2020-12-06 16:29 | NURSING ---
pt stated he updates family
[2020-12-06 16:31] LABS: Bedside Glucose 175 mg/dL (70-110)
[2020-12-06] MEDS: Tamsulosin HCl 0.4 MG Capsule PO (17:25)
[2020-12-06 20:49] VITALS: BP 164/75; PULSE 64
[2020-12-06] MEDS: Atorvastatin Calcium 80 MG Tablet PO (20:50)
[2020-12-06 21:25] LABS: Bedside Glucose 153 mg/dL (70-110)
[2020-12-07 04:37] VITALS: BP 166/96; PULSE 68; RESP 18; TEMP 37; O2SAT 2
[2020-12-07] MEDS: Ondansetron 8 MG Tablet PO (04:50)
[2020-12-07] MEDS: Fluticasone 0.05% 1 SPRAY NASAL.SRY 2 SPRAY NASAL (06:56)
[2020-12-07] MEDS: Polyethylene Glycol 3350 17 GM PACKET PO (06:56)
[2020-12-07] MEDS: Umeclidinium Bromide Inhaler 1 PUFF IH (06:56)
[2020-12-07] MEDS: cloNIDine HCl 0.1 MG Tablet 0.3 MG PO ×2 (06:57→17:33)
[2020-12-07] MEDS: Menthol/Lanolin/Calamine/Znox 113 GM Tube 1 APPLIC TOPICAL ×2 (06:57→17:32)
[2020-12-07] MEDS: Carvedilol 25 MG Tablet 50 MG PO ×2 (06:57→17:33)
[2020-12-07] MEDS: Senna/Docusate Sodium 1 Tablet PO ×2 (06:57→17:34)
[2020-12-07 06:58] VITALS: BP 166/96; PULSE 68; O2SAT 97
[2020-12-07] MEDS: hydrALAZINE 25 MG Tablet PO ×3 (06:58→21:40)
[2020-12-07] MEDS: Nystatin Powder 15gm Bottle 1 APPLIC TOPICAL ×3 (06:58→21:41)
--- NOTE | 2020-12-07 07:15 | NURSING ---
pt woke this am clammy, nauseas and dry heaves. BS 83, BP 166/96. Kali matos, rn aware.
[2020-12-07 07:51] LABS: Bedside Glucose 118 mg/dL (70-110)
[2020-12-07 07:53] LABS: Anion Gap 7 (5-15); BUN 97 mg/dL (7-18); BUN/Creat Ratio 27.9 RATIO (10-20); Calcium,Total 8.5 mg/dL (8.5-10.1); Chloride 108 mmol/L (98-107); Creatinine, Serum 3.48 mg/dL (0.70-1.30); EST Glomerular Filtration Rate 19 mL/min (>60); Est Glom Filt Rate - Afr Amer 22 mL/min (>60); Estimated Creatinine Clearance 19.81 ml/min; Glucose 107 mg/dL (74-106); Sodium Level 141 mmol/L (136-145)
[2020-12-07] MEDS: Aspirin 81 MG TAB.CHEW PO (07:58)
[2020-12-07] MEDS: Insulin Lispro 100 UNIT/ML INSULN.PEN 10 UNIT SC ×3 (07:58→17:35)
[2020-12-07] MEDS: Allopurinol 100 MG Tablet PO (07:59)
[2020-12-07] MEDS: Magnesium Hydroxide 30 ML UDC PO (08:02)
[2020-12-07] MEDS: 0.9% Normal Saline 1,000 ML 75 ML IV (09:04)
--- NOTE | 2020-12-07 09:32 | NURSING ---
dr vines updated on wt gain of 9 lbs & labs. new order to DC IVF and restart lasix at 40mg daily.
[2020-12-07] MEDS: Furosemide 40 MG Tablet PO (09:46)
[2020-12-07 11:10] LABS: Bedside Glucose 121 mg/dL (70-110)
[2020-12-07 14:00] VITALS: BP 138/47; PULSE 64
[2020-12-07 14:18] VITALS: BP 138/47; PULSE 64; RESP 20; TEMP 36.3; O2SAT 97
--- NOTE | 2020-12-07 15:05 | NURSING ---
MILK OF MAG GIVEN DUE TO NO BM IN 3 DAYS AND PT WAS NAUSEATED THIS MORNING. PT HAS ONLY HAD GAS AT THIS TIME.
[2020-12-07 16:36] LABS: Bedside Glucose 158 mg/dL (70-110)
[2020-12-07] MEDS: Tamsulosin HCl 0.4 MG Capsule PO (17:31)
[2020-12-07 21:31] LABS: Bedside Glucose 169 mg/dL (70-110)
[2020-12-07 21:40] VITALS: BP 137/47; PULSE 60
[2020-12-07] MEDS: Atorvastatin Calcium 80 MG Tablet PO (21:40)
[2020-12-07 22:00] VITALS: O2SAT 96
[2020-12-08] VITALS (8 sets, daily range): BP systolic 146–150; BP diastolic 53–75; PULSE 59–68; RESP 14–18; TEMP 36.3–36.6; O2SAT 97–99
[2020-12-08] MEDS: Ondansetron 8 MG Tablet PO ×2 (04:51→17:34)
[2020-12-08] MEDS: cloNIDine HCl 0.1 MG Tablet 0.3 MG PO ×2 (06:12→17:34)
[2020-12-08] MEDS: Polyethylene Glycol 3350 17 GM PACKET PO (06:12)
[2020-12-08] MEDS: Magnesium Hydroxide 30 ML UDC PO (06:12)
[2020-12-08] MEDS: Senna/Docusate Sodium 1 Tablet PO ×2 (06:13→17:39)
[2020-12-08] MEDS: Carvedilol 25 MG Tablet 50 MG PO ×2 (06:13→17:34)
[2020-12-08] MEDS: Fluticasone 0.05% 1 SPRAY NASAL.SRY 2 SPRAY NASAL (06:14)
[2020-12-08] MEDS: Umeclidinium Bromide Inhaler 1 PUFF IH (06:14)
[2020-12-08] MEDS: Menthol/Lanolin/Calamine/Znox 113 GM Tube 1 APPLIC TOPICAL ×2 (06:14→17:35)
[2020-12-08] MEDS: Nystatin Powder 15gm Bottle 1 APPLIC TOPICAL ×3 (06:15→22:19)
[2020-12-08] MEDS: Furosemide 40 MG Tablet PO (06:15)
[2020-12-08 06:20] LABS: Bedside Glucose 97 mg/dL (70-110)
[2020-12-08] MEDS: hydrALAZINE 25 MG Tablet PO ×3 (06:23→22:18)
[2020-12-08] MEDS: Allopurinol 100 MG Tablet PO (07:53)
[2020-12-08] MEDS: Aspirin 81 MG TAB.CHEW PO (07:53)
[2020-12-08] MEDS: Insulin Lispro 100 UNIT/ML INSULN.PEN 10 UNIT SC ×2 (07:54→11:26)
[2020-12-08 08:01] LABS: Bedside Glucose 82 mg/dL (70-110)
[2020-12-08 08:01] LABS: Bedside Glucose 79 mg/dL (70-110)
[2020-12-08 11:16] LABS: Bedside Glucose 117 mg/dL (70-110)
--- NOTE | 2020-12-08 12:34 | NURSING ---
Addendum entered by Mojgan Teran 12/08/20 17:51: positive results, pt had large BM Original Note: No Bm since 12/04/20, warm butter and prune juice given this morning, New order for lactulose
[2020-12-08] MEDS: Lactulose 20 GM/30 ML UDC PO (14:09)
[2020-12-08] MEDS: Tamsulosin HCl 0.4 MG Capsule PO (17:35)
[2020-12-08 17:41] LABS: Bedside Glucose 115 mg/dL (70-110)
--- NOTE | 2020-12-08 19:16 | PCM.TCUNOT ---
Subjective: Resident seen for regulatory visit. He is sitting in his chair after eating lunch. [place]o has been having nausea, vomiting secondary to constipation, he was cleaned out, and due to acute on chronic kidney kidney injury, he was given IV fluids, and his Lasix was held until kidney function improved. He is now off IV fluids, and Lasix is back to 40MG daily. He has mild nausea today, no BM for 4 days, he says his usual regimen is BM every 3 days. Vitals/I&O's: Vital Signs Temp Pulse Resp BP Pulse Ox 97.4 F L 68 14 146/58 H 98 12/08/20 13:51 12/08/20 14:09 12/08/20 13:51 12/08/20 13:51 12/08/20 13:51 Oxygen Flow Rate (L/min) 2 Oxygen Delivery Method Nasal Cannula Weight: 156.291 kg Body Mass Index (BMI) 49.8 Finger Stick Blood Glucose 131 Intake and Output for Last 24 Hours 12/06/20 12/07/20 12/08/20 23:59 23:59 23:59 Intake Total 3045 / 3045 2141.25 / 2141.25 600 / 600 Output Total 250 / 250 Balance 3045 / 3045 2141.25 / 2141.25 350 / 350 Laboratory Results 12/07/20 04:37: POC Glucose 82 12/07/20 06:13: POC Glucose 79 12/07/20 21:16: POC Glucose 169 H 12/08/20 06:09: POC Glucose 97 12/08/20 11:12: POC Glucose 117 H 12/08/20 16:31: POC Glucose 115 H Past Medical History Past Medical History (Chronic Problems): Chronic Problems (Last Reviewed 10/09/20 @ 15:[address] Destin Cain, DO) Chronic diastolic (congestive) heart failure (Chronic) Chronic kidney disease (CKD) (Chronic) Diabetes mellitus (Chronic) Body mass index 45.0-49.9, adult (Chronic) Chronic kidney disease, stage 3 (Chronic) Chronic obstructive pulmonary disease (Chronic) Allergic rhinitis (Chronic) Gout (Chronic) Vitamin D deficiency (Chronic) Tinea corporis (Chronic) Pulmonary hypertension (Chronic) Morbid obesity (Chronic) Anemia (Chronic) Renal failure (Chronic) Thrombocytopenia (Chronic) Diabetes mellitus, type II (Chronic) IMAN (obstructive sleep apnea) (Chronic) Chronic diastolic (congestive) heart failure (Chronic) Secondary pulmonary arterial hypertension (Chronic) Right bundle branch block (RBBB) (Chronic) Essential (primary) hypertension (Chronic) Hyperlipidemia (Chronic) Lymphedema of both lower extremities (Chronic) Medical History: Medical History (Last Reviewed 10/09/20 @ 15:[address] Destin Cain, DO) Chronic diastolic (congestive) heart failure (Chronic) I50.32 Secondary pulmonary arterial hypertension (Chronic) I27.21 Right bundle branch block (RBBB) (Chronic) I45.10 Essential (primary) hypertension (Chronic) I10 Hyperlipidemia (Chronic) E78.5 Lymphedema of both lower extremities (Chronic) I89.0 BMI 33.0-33.9,adult Z68.33 Non-pressure ulcer of right lower extremity with fat layer exposed L97.912 Traumatic open wound of right lower leg with delayed healing S81.801D Type 2 diabetes mellitus E11.9 DEVAN (acute kidney injury) (Resolved) N17.9 Gastrointestinal bleed K92.2 Syncope and collapse R55 CKD (chronic kidney disease), stage III N18.3 Traumatic open wound of right lower leg (Inactive) S81.801A Wound of right leg (Inactive) S81.801A Allergies ARB-Angiotensin Receptor Antagonist Allergy (Verified 11/07/20 10:24) WORSENS RENAL FUNCTION WORSENS RENAL FUNCTION amoxicillin Adverse Reaction (Verified 11/07/20 10:24) Upset Stomach Home Medications: Ambulatory Orders Medication Instructions Recorded Aspirin [Aspirin, Baby] 81 mg PO DAILY 03/03/15 Fluticasone 0.05% [Flonase Nasal 2 spray NASAL DAILY 12/31/15 [place]] Allopurinol [Zyloprim] 100 mg PO DAILYCM 03/03/19 Carvedilol [Coreg] 50 mg PO BID 03/03/19 Cholecalciferol (VIT D3) [Vitamin 1,000 unit PO SUWESA 03/03/19 D3] Clonidine HCl [Catapres] 0.3 mg PO BID 03/03/19 Isosorbide Mononitrate [Isosorbide 120 mg PO DAILY 03/03/19 Mononitrate ER] Umeclidinium Brm/Vilanterol Tr 1 puff IH DAILY 03/03/19 [Anoro Ellipta 62.5-25 Mcg INH] hydrALAZINE [Apresoline] 25 mg PO TID 03/03/19 atorvastatin 80 mg tablet 80 mg PO QHS #90 tab 04/04/19 Albuterol Inhaler [Ventolin Hfa] 2 puff INHALATION Q6H PRN PRN 04/27/19 Nitroglycerin (INPATIENT USE) 0.4 mg SUBLINGUAL Q5M PRN 09/19/20 [Nitrostat] Torsemide 20 mg PO DAILY 11/07/20 Acetaminophen [Tylenol Tablet] 650 mg PO Q6H PRN PRN tab 11/11/20 Insulin Glargine [Lantus SoloStar 30 units SC BREAKFAST #1 pen 11/11/20 Pen] Insulin Glargine [Lantus SoloStar 30 units SC DINNER #1 pen 11/11/20 Pen] Insulin Lispro [Humalog KwikPen] 5 unit SC BREAKFAST insuln.pen 11/11/20 Insulin Lispro [Humalog KwikPen] 5 unit SC DINNER insuln.pen 11/11/20 Insulin Lispro [Humalog KwikPen] 5 unit SC LUNCH insuln.pen 11/11/20 Nystatin Powder [Mycostatin Powder] 1 applic TOPICAL TID bottle 11/11/20 Tamsulosin HCl [Flomax] 0.4 mg PO DAILY@1730 cap 11/11/20 Surgical History: Surgical History (Last Reviewed 10/09/20 @ 15:[address] Destin Cain DO) A-V fistula Onset Date: 05/09/20 I77.0 LUE History of cataract surgery Z98.49 Surgical History: cataract, - - AVF left radiocephalic, nasal cyst removal. Psychiatric History: No pertinent psych hx Lives: Alone Smoking Status: Former smoker Tobacco Use: Non-smoker Alcohol: None Drugs: None - *Family History Sibling Family History: Family History (Last Reviewed 10/09/20 @ 15:[address] Destin Cain DO) Other Diabetes Heart disease Hypertension History Items: Heart Disease Paternal Family History: Family History (Last Reviewed 10/09/20 @ 15:[address] Destin Cain DO) Other Diabetes Heart disease Hypertension History Items: Cancer - Other with a history of possibly lymphoma., Diabetes Maternal Family History: Family History (Last Reviewed 10/09/20 @ 15:[address] Destin Cain, DO) Other Diabetes Heart disease Hypertension History Items: Diabetes, Heart Disease, Hypertension Capacity - Capacity Assessment Tool Can the patient make a choice & communicate that choice?: Yes Can the patient understand benefits, risks and alternatives?: Yes Can the patient make a logical, rational choice?: Yes Is the choice the patient makes consistent w/ their values?: Yes Is there an impending, emergent risk to the patient?: No Does the patient have an Advance Directive?: Yes Is there a Surrogate Available?: Yes i.e. HCPOA: Yes i.e. close relative (spouse, child, parent, sibling)?: Yes Review of Systems Constitutional: Denies: Chills, Fever, Weight Change HEENT: Denies: Head Aches, Sinus Congestion, Sinus Drainage Cardiovascular: Denies: Chest Pain, Palpitations Respiratory: Denies: Cough, Shortness of breath at rest, Sputum production Gastrointestinal: Reports: Nausea. Denies: Abdominal Pain, Vomiting Genitourinary: Denies: Dysuria Musculoskeletal: Denies: Joint Pain, Joint Tenderness Skin: Denies: Rash, Wounds Neurological: Denies: Numbness, Tingling, Focal weakness Psychiatric: Denies: Anxiety, Depression, Homicidal Ideations, Suicidal Ideations Hematologic/ Lymphatic: Denies: Easy Bruising, Easy Bleeding Patient Problems: Active and Suspected Problems (Last Reviewed 10/09/20 @ 15:[address] Destin Cain DO) Debility (Acute) Hypoxia (Acute) Acute on chronic diastolic congestive heart failure (Acute) - Physical Exam Vitals/I&O's: Vital Signs Temp Pulse Resp BP Pulse Ox 97.4 F L 68 14 146/58 H 98 12/08/20 13:51 12/08/20 14:09 12/08/20 13:51 12/08/20 13:51 12/08/20 13:51 Oxygen Flow Rate (L/min) 2 Oxygen Delivery Method Nasal Cannula Weight: 156.291 kg Body Mass Index (BMI) 49.8 Finger Stick Blood Glucose 131 Intake and Output for Last 24 Hours 12/06/20 12/07/20 12/08/20 23:59 23:59 23:59 Intake Total 3045 / 3045 2141.25 / 2141.25 600 / 600 Output Total 250 / 250 Balance 3045 / 3045 2141.25 / 2141.25 350 / 350 General: Alert, Oriented x3, Cooperative HEENT: Atraumatic, PERRLA, EOMI, Normocephalic Neck: Supple, No JVD, Negative Carotid Bruits Lungs: Clear to auscultation, Normal air movement Cardiovascular: Regular rate, No murmurs Abdomen: Bowel Sounds Present, Soft, Non Tender Extremities: Capillary Refill Less than 3 Seconds, Edema - 1+ pitting edema bilaterally, YESSY wraps bilaterally. Skin: No rashes, No breakdown Musculoskeletal: No Tenderness to Palpation of Joints or Extremities Neurological: Cranial nerves II-XII grossly intact Psych/Mental Status: Normal Affect, Appropriate Laboratory Results 12/07/20 04:37: POC Glucose 82 12/07/20 06:13: POC Glucose 79 12/07/20 21:16: POC Glucose 169 H 12/08/20 06:09: POC Glucose 97 12/08/20 11:12: POC Glucose 117 H 12/08/20 16:31: POC Glucose 115 H Current Medications Acetaminophen (Acetaminophen 500 Mg Tablet) 1,000 mg PO Q6H PRN PRN PRN Reason: Pain Score 1-10 Last Admin: 12/04/20 17:55 Dose: 1,000 mg Documented by: Albuterol Sulfate (Albuterol Sulfate 8 Gm Inhaler (60 Puffs)) 2 puff INHALATION Q6H PRN PRN PRN Reason: SOB &/OR WHEEZING Last Admin: 11/12/20 06:40 Dose: 2 puff Documented by: Albuterol Sulfate (Albuterol Sulfate 8 Gm Inhaler (60 Puffs)) 2 puff [facility]HALATION [facility]HWA[facility] Allop[facility] ([facility] 100 Mg Tablet) [facility] Last Admin: 12/08/20 07:53 Dose: 100 mg Documented by: Aspirin (Aspirin 81 Mg Tab.Chew) 81 mg PO DAILY@0800 [facility] Last Admin: 12/08/20 07:53 Dose: 81 mg Documented by: Atorvastatin Calcium (Atorvastatin Calcium 80 Mg Tablet) 80 mg PO QHS [facility] Last Admin: 12/07/20 21:40 Dose: 80 mg Documented by: Bisacodyl (Bisacodyl 10 Mg Suppository) 10 mg RC DAILY PRN PRN Reason: Constipation Calamine/Phenol (Menthol/Lanolin/Calamine/Znox 113 Gm Tube) 1 applic TOPICAL BID [facility]; Protocol Last Admin: 12/08/20 17:35 Dose: 1 applicatio Documented by: Carvedilol (Carvedilol 25 Mg Tablet) 50 mg PO BID [facility] Last Admin: 12/08/20 17:34 Dose: 50 mg Documented by: Cholecalciferol (Cholecalciferol (Vit D3) 1,000 Unit (25mcg)) 1,000 unit PO SuWeSa@0600 [facility] Last Admin: 12/07/20 06:57 Dose: 1,000 unit Documented by: Clonidine (Clonidine Hcl 0.1 Mg Tablet) 0.3 mg PO BID [facility] Last Admin: 12/08/20 17:34 Dose: 0.3 mg Documented by: Fluticasone Propionate (Fluticasone 0.05% 1 [place] Nasal.Sry) 2 spray NASAL DAILY [facility] Last Admin: 12/08/20 06:14 Dose: 2 spray Documented by: Furosemide (Furosemide 40 Mg Tablet) 40 mg PO DAILY [facility] Last Admin: 12/08/20 06:15 Dose: 40 mg Documented by: Hydralazine HCl (Hydralazine 25 Mg Tablet) 25 mg PO TID [facility] Last Admin: 12/08/20 14:09 Dose: 25 mg Documented by: Insulin Glargine (Insulin Glargine 100 Units/Ml Pen) 30 units SC BREAKFAST [facility] Last Admin: 12/08/20 07:55 Dose: 30 u Documented by: Insulin Glargine (Insulin Glargine 100 Units/Ml Pen) 30 units SC DINNER [facility] Last Admin: 12/07/20 17:35 Dose: 30 u Documented by: Insulin Human Lispro (Insulin Lispro 100 Unit/Ml Insuln.Pen) 10 unit SC BREAKFAST [facility] Last Admin: 12/08/20 07:54 Dose: 10 u Documented by: Insulin Human Lispro (Insulin Lispro 100 Unit/Ml Insuln.Pen) 10 unit SC DINNER [facility] Last Admin: 12/07/20 17:35 Dose: 10 units Documented by: Insulin Human Lispro (Insulin Lispro 100 Unit/Ml Insuln.Pen) 10 unit SC LUNCH [facility] Last Admin: 12/08/20 11:26 Dose: 10 u Documented by: Isosorbide Mononitrate (Isosorbide Mononitrate 120 Mg Tablet) 120 mg PO DAILY [facility] Last Admin: 12/08/20 06:13 Dose: 120 mg Documented by: Magnesium Hydroxide (Magnesium Hydroxide 30 Ml Udc) 30 ml PO DAILY PRN PRN Reason: Constipation Last Admin: 12/08/20 06:12 Dose: 30 ml Documented by: Multi-Ingredient Cream (Mineral Oil/Petrolatum,White Jar) 1 applic TOPICAL BID [facility]; Protocol Last Admin: 12/08/20 17:35 Dose: 1 applicatio Documented by: Nitroglycerin (Nitroglycerin (Inpatient Use) 0.4 Mg Tab.Subl) 0.4 mg SUBLINGUAL Q5M PRN PRN Reason: CARDIAC/CHEST PAIN Nystatin (Nystatin Powder 15gm Bottle) 1 applic TOPICAL TID [facility]; Protocol Last Admin: 12/08/20 14:09 Dose: 1 applicatio Documented by: Ondansetron HCl (Ondansetron 8 Mg Tablet) 8 mg PO Q8H PRN PRN PRN Reason: NAUSEA Last Admin: 12/08/20 17:34 Dose: 8 mg Documented by: Polyethylene Glycol (Polyethylene Glycol 3350 17 Gm Packet) 17 gm PO DAILY [facility] Last Admin: 12/08/20 06:12 Dose: 17 gm Documented by: Senna/Docusate Sodium (Senna/Docusate Sodium 1 Tablet) 1 tablet PO BID [facility] Last Admin: 12/08/20 17:39 Dose: 1 tablet Documented by: Sodium Chloride (0.9% Saline Lock 10 Ml Syringe) 10 - 40 ml IV UD PRN PRN Reason: SALINE FLUSH Last Admin: 12/04/20 03:23 Dose: 10 ml Documented by: Tamsulosin HCl (Tamsulosin Hcl 0.4 Mg Capsule) 0.4 mg PO DAILY@1730 [facility] Last Admin: 12/08/20 17:35 Dose: 0.4 mg Documented by: Umeclidinium [place] (Umeclidinium [place] Inhaler) 1 puff IH DAILY [facility] Last Admin: 12/08/20 06:14 Dose: 1 puff Documented by: Assessment/Plan All Active Problems (Last Reviewed 10/09/20 @ 15:[address] Destin Cain DO) (HFpEF) heart failure with preserved ejection fraction (Acute) Debility (Acute) Hypoxia (Acute) Acute on chronic diastolic congestive heart failure (Acute) DEVAN (acute kidney injury) (Resolved) 70 year old male with below past medical history hospitalized for acute on chronic diastolic congestive heart failure, complicated by chronic kidney disease, admitted to TCU with debility, here for rehabilitation, strengthening, prior to discharge home alone. Debility - PT/OT. Pain - Tylenol 1000MG Q6H PRN pain (1-10). Bowel - Miralax 17GM daily, Senna/colace 2 tablet BID, MOM 30ML daily PRN, Dulcolax 10MG NM daily PRN, Lactulose 20GM PO x 1 dose given today with good results. Adult immunization - Administer Prevnar 13, Pneumovax 23, Fluzone, COVID19 vaccine as appropriate. DVT prophylaxis - Hold, thrombocytopenia. COPD - Incruse 1 puff daily, Albuterol MDI 2 puff Q6H PRN. Gout - Allopurinol 100MG daily. Hyperlipidemia - Atorvastatin 80MG QHS. Acute on chronic diastolic congestive heart failure - Coreg 50MG BID, Imdur 120MG daily, Hydralazine 25MG TID, Lasix 40MG daily. Coronary Artery Disease - Coreg 50MG BID, Imdur 120MG daily, Aspirin 81MG daily, NTG 0.4MG SL Q5M PRN. Vitamin D deficiency - D3 1000IU 3x/week. Hypertension - Coreg 50MG BID, Hydralazine 25MG TID, Clonidine 0.3MG BID. Allergic Rhinitis - Flonase 2 sprays nasal daily. Diabetes Mellitus II - Lantus 30 units BID, Humalog 10 units TIDAC. Skin irritation - Calmoseptine topical BID, Eucerin topical BID. Tinea Corporis - Nystatin powder topical TID. BPH - Tamsulosin 0.4MG daily. Nausea - Zofran 8MG Q8H PRN.
[2020-12-08 22:11] LABS: Bedside Glucose 121 mg/dL (70-110)
[2020-12-08] MEDS: Atorvastatin Calcium 80 MG Tablet PO (22:18)
[2020-12-09] VITALS (7 sets, daily range): BP systolic 125–134; BP diastolic 50–61; PULSE 57–68; RESP 18–20; TEMP 36.6; O2SAT 92–98
[2020-12-09] MEDS: Umeclidinium Bromide Inhaler 1 PUFF IH (05:57)
[2020-12-09] MEDS: cloNIDine HCl 0.1 MG Tablet 0.3 MG PO ×2 (05:57→17:05)
[2020-12-09] MEDS: Polyethylene Glycol 3350 17 GM PACKET PO (05:57)
[2020-12-09] MEDS: Furosemide 40 MG Tablet PO (05:57)
[2020-12-09] MEDS: Senna/Docusate Sodium 1 Tablet 2 TABLET PO ×2 (05:57→17:06)
[2020-12-09] MEDS: Fluticasone 0.05% 1 SPRAY NASAL.SRY 2 SPRAY NASAL (05:58)
[2020-12-09] MEDS: hydrALAZINE 25 MG Tablet PO ×3 (05:58→20:14)
[2020-12-09] MEDS: Carvedilol 25 MG Tablet 50 MG PO ×2 (05:58→17:05)
[2020-12-09] MEDS: Nystatin Powder 15gm Bottle 1 APPLIC TOPICAL ×3 (06:02→20:16)
[2020-12-09] MEDS: Menthol/Lanolin/Calamine/Znox 113 GM Tube 1 APPLIC TOPICAL ×2 (06:02→17:06)
--- NOTE | 2020-12-09 06:21 | NURSING ---
Addendum entered by Lisa Garcia 12/09/20 06:32: Blood sugar reckecked 72 continuing to work on peanut butter and crackers Original Note: Patient given peanut butter and crackers with milk this am due to blood sugar been 65 will recheck in 15 minutes. Rn aware
[2020-12-09 06:25] LABS: Anion Gap 5 (5-15); BUN 91 mg/dL (7-18); BUN/Creat Ratio 27.6 RATIO (10-20); Calcium,Total 8.5 mg/dL (8.5-10.1); Chloride 109 mmol/L (98-107); EST Glomerular Filtration Rate 20 mL/min (>60); Est Glom Filt Rate - Afr Amer 24 mL/min (>60); Estimated Creatinine Clearance 20.89 ml/min; Glucose 66 mg/dL (74-106); Sodium Level 141 mmol/L (136-145)
[2020-12-09 06:26] LABS: Bedside Glucose 65 mg/dL (70-110)
[2020-12-09 06:30] LABS: Bedside Glucose 72 mg/dL (70-110)
[2020-12-09] MEDS: Allopurinol 100 MG Tablet PO (08:17)
[2020-12-09] MEDS: Aspirin 81 MG TAB.CHEW PO (08:17)
[2020-12-09 08:25] LABS: Bedside Glucose 133 mg/dL (70-110)
[2020-12-09 11:20] LABS: Bedside Glucose 145 mg/dL (70-110)
[2020-12-09] MEDS: Insulin Lispro 100 UNIT/ML INSULN.PEN 10 UNIT SC ×2 (11:51→18:33)
[2020-12-09] MEDS: Acetaminophen 500 MG Tablet 1000 MG PO (13:25)
[2020-12-09 16:36] LABS: Bedside Glucose 189 mg/dL (70-110)
[2020-12-09] MEDS: Tamsulosin HCl 0.4 MG Capsule PO (17:06)
--- NOTE | 2020-12-09 19:42 | NURSING ---
Pt had appt with Dr. Camarena this shift no new orders.
[2020-12-09] MEDS: Atorvastatin Calcium 80 MG Tablet PO (20:14)
[2020-12-09 21:11] LABS: Bedside Glucose 192 mg/dL (70-110)
[2020-12-10] VITALS (7 sets, daily range): BP systolic 128–157; BP diastolic 44–57; PULSE 58–64; RESP 14–20; TEMP 36.3–37; O2SAT 94–97
[2020-12-10] MEDS: Umeclidinium Bromide Inhaler 1 PUFF IH (04:38)
[2020-12-10] MEDS: Polyethylene Glycol 3350 17 GM PACKET PO (04:38)
[2020-12-10] MEDS: Fluticasone 0.05% 1 SPRAY NASAL.SRY 2 SPRAY NASAL (04:38)
[2020-12-10] MEDS: hydrALAZINE 25 MG Tablet PO ×2 (04:41→21:35)
[2020-12-10] MEDS: Senna/Docusate Sodium 1 Tablet 2 TABLET PO ×2 (04:41→16:59)
[2020-12-10] MEDS: cloNIDine HCl 0.1 MG Tablet 0.3 MG PO ×2 (04:42→16:59)
[2020-12-10] MEDS: Carvedilol 25 MG Tablet 50 MG PO ×2 (04:42→16:59)
[2020-12-10] MEDS: Furosemide 40 MG Tablet PO (04:42)
[2020-12-10] MEDS: Nystatin Powder 15gm Bottle 1 APPLIC TOPICAL ×3 (04:44→21:36)
[2020-12-10] MEDS: Menthol/Lanolin/Calamine/Znox 113 GM Tube 1 APPLIC TOPICAL ×2 (04:44→16:58)
[2020-12-10 06:02] LABS: Absolute Lymphocyte Count 0.36 X10^3/uL (0.83-4.51); Absolute Neutrophil Count 3.6 X10^3/uL (2.0-7.7); Basophil# 0.01 X10^3/uL; Basophil% 0.2 % (0-1); Eosinophil# 0.11 X10^3/uL; Eosinophils% 2.4 % (0-5); Hemoglobin 8.5 g/dL (13.0-16.5); Lymphocyte # 0.36 X10^3/ul (4.0); Lymphocyte % 7.9 % (19-41); Mean Corp Hgb Conc 29.3 g/dL (32-36); Mean Corpuscular Volume 105.8 fL (80-94); Mean Platelet Vol. 10.6 fl (6.2-12.0); Monocyte# 0.36 X10^3/uL; Monocyte% 7.9 % (0-10); NRBC Flagged by Analyzer 0 % (0-5); Neutrophil # 3.64 X10^3/uL (2.7-7.7); Neutrophil % 80.5 % (47-70); POSITIVE COUNT YES; POSITIVE DIFFERENTIAL YES; POSITIVE MORPHOLOGY YES; Platelet Count 94 K/mm3 (150-450); RBC Distribution Width SD 70.8 fl (35.1-43.9); Red Blood Count 2.74 M/mm3 (4.6-6.2); White Blood Count 4.5 K/mm3 (4.4-11.0)
[2020-12-10 06:04] LABS: Differential Indicated SCAN CRITERIA MET
[2020-12-10 06:26] LABS: Bedside Glucose 134 mg/dL (70-110)
[2020-12-10 06:32] LABS: Anion Gap 7 (5-15); BUN 97 mg/dL (7-18); BUN/Creat Ratio 26.1 RATIO (10-20); Calcium,Total 8.4 mg/dL (8.5-10.1); Chloride 106 mmol/L (98-107); Creatinine, Serum 3.71 mg/dL (0.70-1.30); EST Glomerular Filtration Rate 17 mL/min (>60); Est Glom Filt Rate - Afr Amer 21 mL/min (>60); Estimated Creatinine Clearance 18.58 ml/min; Glucose 128 mg/dL (74-106); Potassium 5.1 mmol/L (3.5-5.1); Sodium Level 139 mmol/L (136-145)
[2020-12-10] MEDS: Insulin Lispro 100 UNIT/ML INSULN.PEN 10 UNIT SC ×3 (07:49→16:54)
[2020-12-10] MEDS: Aspirin 81 MG TAB.CHEW PO (07:52)
[2020-12-10] MEDS: Allopurinol 100 MG Tablet PO (07:52)
[2020-12-10 11:21] LABS: Bedside Glucose 186 mg/dL (70-110)
--- NOTE | 2020-12-10 16:04 | CASEMGMT ---
Social Work Spoke with pt to discuss DC plans. Inquired how he felt about DCing home. Pt stated his major concern was meals and he has those lined up. Offered MOW resources - pt agreed. Provided. Discussed care options for wounds and toileting. Pt stated he will get AE for toileting and LE care. He has family that can assist him with wound care. Offered wound clinic for dressing changes. Pt agreeable and can have brother transport. Also provided transport resources. Explained nonskilled HHC options or SNF but both private pay - pt declined. SW provided skilled HHC list that provides include quality and resource data that is consistent with the pt's preferred geographic region, medical needs and insurance networks. Pt to review and choose HHC. Provided [facility] resources as well. Pt requesting FWW. Referral to [facility]. Inquired about DC 12/17. Pt agreeable and family can transport home. Plan: DC home alone 12/17 with skilled HHC PT/OT/SN/ODONNELL, wound clinic daily, FWW Daxa Hines, [employer] OPER[employer]
[2020-12-10 16:20] LABS: Bedside Glucose 135 mg/dL (70-110)
[2020-12-10] MEDS: Ondansetron 8 MG Tablet PO (16:52)
[2020-12-10] MEDS: Tamsulosin HCl 0.4 MG Capsule PO (16:53)
--- NOTE | 2020-12-10 19:41 | PCM.DC ---
- Discharge Diagnoses Current Active Problems: Current Active and Chronic Problems (Last Reviewed 10/09/20 @ 15:[address] Destin Cain, DO) Debility (Acute) Hypoxia (Acute) Acute on chronic diastolic congestive heart failure (Acute) Diabetes mellitus (Chronic) Body mass index 45.0-49.9, adult (Chronic) Chronic kidney disease, stage 3 (Chronic) Chronic obstructive pulmonary disease (Chronic) Allergic rhinitis (Chronic) Gout (Chronic) Vitamin D deficiency (Chronic) Tinea corporis (Chronic) Pulmonary hypertension (Chronic) Anemia (Chronic) Thrombocytopenia (Chronic) IMAN (obstructive sleep apnea) (Chronic) Hyperlipidemia (Chronic) You will use the following diet at home:: No restrictions, Regular Your food should be the consistency of: Regular Your liquids should be the consistency of: Regular/Thin Discharge Activity: Return to Normal Activity, May Shower, Use Walker Weight Bearing Status: Weight bearing as tolerated Call your doctor if you observe: Fever of 101 or Higher, Inability to urinate, Inability to have a bowel movement, Shortness of breath, Chest pain, Uncontrolled pain Allergies/Adverse Reactions: Allergies ARB-Angiotensin Receptor Antagonist Allergy (Verified 11/07/20 10:24) WORSENS RENAL FUNCTION WORSENS RENAL FUNCTION amoxicillin Adverse Reaction (Verified 11/07/20 10:24) Upset Stomach Medications to take at Discharge Aspirin [Aspirin, Baby] 81 mg PO DAILY 03/03/15 Fluticasone 0.05% [Flonase Nasal [place]] 2 spray NASAL DAILY 12/31/15 Allopurinol [Zyloprim] 100 mg PO DAILYCM 03/03/19 Carvedilol [Coreg] 50 mg PO BID 03/03/19 Cholecalciferol (VIT D3) [Vitamin D3] 1,000 unit PO SUWESA 03/03/19 Clonidine HCl [Catapres] 0.3 mg PO BID 03/03/19 Isosorbide Mononitrate [Isosorbide Mononitrate ER] 120 mg PO DAILY 03/03/19 Umeclidinium Brm/Vilanterol Tr [Anoro Ellipta 62.5-25 Mcg INH] 1 puff IH DAILY 03/03/19 hydrALAZINE [Apresoline] 25 mg PO TID 03/03/19 atorvastatin 80 mg tablet 80 mg PO QHS #90 tab 04/04/19 Albuterol Inhaler [Ventolin Hfa] 2 puff INHALATION Q6H PRN PRN 04/27/19 Nitroglycerin (INPATIENT USE) [Nitrostat] 0.4 mg SUBLINGUAL Q5M PRN 09/19/20 Insulin Glargine [Lantus SoloStar Pen] 30 units SC BREAKFAST #1 pen 11/11/20 Insulin Glargine [Lantus SoloStar Pen] 30 units SC DINNER #1 pen 11/11/20 Insulin Lispro [Humalog KwikPen] 5 unit SC BREAKFAST insuln.pen 11/11/20 Insulin Lispro [Humalog KwikPen] 5 unit SC DINNER insuln.pen 11/11/20 Insulin Lispro [Humalog KwikPen] 5 unit SC LUNCH insuln.pen 11/11/20 Nystatin Powder [Mycostatin Powder] 1 applic TOPICAL TID bottle 11/11/20 Acetaminophen [Tylenol] 1,000 mg PO Q6H PRN PRN tablet 12/10/20 Furosemide [Lasix] 40 mg PO DAILY #30 tab 12/10/20 Menthol/Lanolin/Calamine/Znox [Calmoseptine Ointment] 1 applic TOPICAL BID tube 12/10/20 Mineral Oil/Petrolatum,White [Eucerin] 1 applic TOPICAL BID jar 12/10/20 Ondansetron [Zofran] 8 mg PO Q8H PRN PRN #90 tab 12/10/20 Polyethylene Glycol 3350 [Miralax] 17 gm PO DAILY #30 packet 12/10/20 Senna/Docusate Sodium [Senokot-S] 2 tab PO BID #120 tab 12/10/20 Tamsulosin HCl [Flomax] 0.4 mg PO DAILY@1730 #30 cap 12/10/20 The following prescriptions were given: Tamsulosin HCl [Flomax] 0.4 mg PO DAILY@1730 #30 cap Transmission Status: Pending to [employer] #30 Furosemide [Lasix] 40 mg PO DAILY #30 tab Transmission Status: Pending to [employer] #30 Polyethylene Glycol 3350 [Miralax] 17 gm PO DAILY #30 packet Transmission Status: Pending to [employer] #30 Senna/Docusate Sodium [Senokot-S] 2 tab PO BID #120 tab Transmission Status: Pending to [employer] #30 Ondansetron [Zofran] 8 mg PO Q8H PRN PRN #90 tab PRN Reason: NAUSEA Transmission Status: Pending to [employer] #30 Primary Care Physician: Jean-Claude Garcia MD [Primary Care Provider] - Please follow up with your Primary Care Physician in: 1 week. Test Results: Test results from this visit will be discussed in further detail at your follow-up appointment, if applicable. Please Follow Up With: Vickie Gutierrez DO When: 2 weeks. Please Follow Up With: Juan Camarena DO When: 2 weeks. Please Follow Up With: Juan Camarena DO Please Follow Up With: Juan Camarena DO Proposed Discharge Date: 12/17/20
--- NOTE | 2020-12-10 19:42 | PCM.DC.SUM ---
Discharge Date and Diagnosis - Problem List Patient Problems: Active and Suspected Problems (Last Reviewed 10/09/20 @ 15:[address] Destin Cain DO) Debility (Acute) Hypoxia (Acute) Acute on chronic diastolic congestive heart failure (Acute) Date of Admission: 11/07/20 Date of Discharge: 12/17/20 - Primary Discharge Diagnosis Acute Problems: Active Problems (Last Reviewed 10/09/20 @ 15:[address] Destin Cain DO) Debility (Acute) Hypoxia (Acute) Acute on chronic diastolic congestive heart failure (Acute) - Secondary Discharge Diagnosis Chronic Problems: Chronic Problems (Last Reviewed 10/09/20 @ 15:[address] Destin Cain DO) Chronic diastolic (congestive) heart failure (Chronic) Chronic kidney disease (CKD) (Chronic) Diabetes mellitus (Chronic) Body mass index 45.0-49.9, adult (Chronic) Chronic kidney disease, stage 3 (Chronic) Chronic obstructive pulmonary disease (Chronic) Allergic rhinitis (Chronic) Gout (Chronic) Vitamin D deficiency (Chronic) Tinea corporis (Chronic) Pulmonary hypertension (Chronic) Morbid obesity (Chronic) Anemia (Chronic) Renal failure (Chronic) Thrombocytopenia (Chronic) Diabetes mellitus, type II (Chronic) IMAN (obstructive sleep apnea) (Chronic) Chronic diastolic (congestive) heart failure (Chronic) Secondary pulmonary arterial hypertension (Chronic) Right bundle branch block (RBBB) (Chronic) Essential (primary) hypertension (Chronic) Hyperlipidemia (Chronic) Lymphedema of both lower extremities (Chronic) Hospital Course and Treatment Imaging Results: 11/19/20 11:11 Diet: Carbohydrate Controlled Food consistency:: Regular Liquid Consistency:: Regular/Thin Dietary Modifications:: Consistent Carbohydrate Protein Restricted Sodium Restricted Is pt able to select menu?: Yes Clinical Impression(s) from Imaging Studies Chest X-Ray 11/18/20 08:05 IMPRESSION: Vascular congestion and mild degree of CHF with small bilateral effusions more prominent on the right side and bibasilar atelectasis more prominent on the right side. Electronically Signed: Delvis Chilel MD at 9:55 EST , Service support , KUB X-Ray 12/03/20 07:57 IMPRESSION: Moderate amount of fecal material is seen in the colon. Electronically Signed: Delvis Chilel MD at 15:36 EST , Service support , Labs (Last 48 Hours) 12/08/20 12/09/20 12/09/20 22:00 05:15 06:10 WBC RBC Hgb Hct MCV MCH MCHC RDW Std Deviation RDW Coeff of Gina Plt Count MPV Immature Gran % (Auto) Neut % (Auto) Lymph % (Auto) [place] % (Auto) Eos % (Auto) Baso % (Auto) Absolute Neuts (auto) Absolute Lymphs (auto) Nucleated RBC % Sodium 141 Potassium 5.0 Chloride 109 H Carbon Dioxide 27.0 Anion Gap 5 BUN 91 H Creatinine 3.30 H Estim Creat Clear Calc 20.89 Est GFR (MDRD) Af Amer 24 L Est GFR (MDRD) Non-Af 20 L BUN/Creatinine Ratio 27.6 H Glucose 66 L Calcium 8.5 POC Glucose 121 H 65 L 12/09/20 12/09/20 12/09/20 06:28 08:16 11:08 WBC RBC Hgb Hct MCV MCH MCHC RDW Std Deviation RDW Coeff of Gina Plt Count MPV Immature Gran % (Auto) Neut % (Auto) Lymph % (Auto) [place] % (Auto) Eos % (Auto) Baso % (Auto) Absolute Neuts (auto) Absolute Lymphs (auto) Nucleated RBC % Sodium Potassium Chloride Carbon Dioxide Anion Gap BUN Creatinine Estim Creat Clear Calc Est GFR (MDRD) Af Amer Est GFR (MDRD) Non-Af BUN/Creatinine Ratio Glucose Calcium POC Glucose 72 133 H 145 H 12/09/20 12/09/20 12/10/20 16:14 21:06 05:05 WBC 4.5 RBC 2.74 L Hgb 8.5 L Hct 29.0 L MCV 105.8 H MCH 31.0 MCHC 29.3 L RDW Std Deviation 70.8 H RDW Coeff of Gina 18.0 H Plt Count 94 L MPV 10.6 Immature Gran % (Auto) 1.100 H Neut % (Auto) 80.5 H Lymph % (Auto) 7.9 L [place] % (Auto) 7.9 Eos % (Auto) 2.4 Baso % (Auto) 0.2 Absolute Neuts (auto) 3.6 Absolute Lymphs (auto) 0.36 L Nucleated RBC % 0 Sodium Potassium Chloride Carbon Dioxide Anion Gap BUN Creatinine Estim Creat Clear Calc Est GFR (MDRD) Af Amer Est GFR (MDRD) Non-Af BUN/Creatinine Ratio Glucose Calcium POC Glucose 189 H 192 H 12/10/20 12/10/20 12/10/20 05:05 06:13 11:01 WBC RBC Hgb Hct MCV MCH MCHC RDW Std Deviation RDW Coeff of Gina Plt Count MPV Immature Gran % (Auto) Neut % (Auto) Lymph % (Auto) [place] % (Auto) Eos % (Auto) Baso % (Auto) Absolute Neuts (auto) Absolute Lymphs (auto) Nucleated RBC % Sodium 139 Potassium 5.1 Chloride 106 Carbon Dioxide 26.0 Anion Gap 7 BUN 97 H Creatinine 3.71 H Estim Creat Clear Calc 18.58 Est GFR (MDRD) Af Amer 21 L Est GFR (MDRD) Non-Af 17 L BUN/Creatinine Ratio 26.1 H Glucose 128 H Calcium 8.4 L POC Glucose 134 H 186 H 12/10/20 16:09 WBC RBC Hgb Hct MCV MCH MCHC RDW Std Deviation RDW Coeff of Gina Plt Count MPV Immature Gran % (Auto) Neut % (Auto) Lymph % (Auto) [place] % (Auto) Eos % (Auto) Baso % (Auto) Absolute Neuts (auto) Absolute Lymphs (auto) Nucleated RBC % Sodium Potassium Chloride Carbon Dioxide Anion Gap BUN Creatinine Estim Creat Clear Calc Est GFR (MDRD) Af Amer Est GFR (MDRD) Non-Af BUN/Creatinine Ratio Glucose Calcium POC Glucose 135 H Consultations 11/12/20 02:22 Consult: Onc/Wound/water analyst Routine Comment: Operations: None Procedures: None Summary of Care Provided: The patient is a 70 year old Male with below past medical history hospitalized for acute on chronic diastolic congestive heart failure, complicated by chronic kidney disease, admitted to TCU with debility, here for rehabilitation, strengthening, prior to discharge home alone. Resident suffered nausea, vomiting, worsening acute on chronic kidney disease, secondary to fecal impaction of colon. Consider regular bowel regimen, monitoring for constipation. Discharge home alone, with skilled Home Health Care PT/OT/SN/ODONNELL, wound clinic daily, Front Wheeled Walker. Patient Problems: Active and Suspected Problems (Last Reviewed 10/09/20 @ 15:[address] Destin Cain, DO) Debility (Acute) Hypoxia (Acute) Acute on chronic diastolic congestive heart failure (Acute) - Physical Exam Vitals/I&O's: Vital Signs Temp Pulse Resp BP Pulse Ox 97.3 F L 58 L 14 157/57 H 97 12/10/20 14:06 12/10/20 16:49 12/10/20 14:06 12/10/20 16:49 12/10/20 14:06 Oxygen Flow Rate (L/min) 2 Oxygen Delivery Method Nasal Cannula Weight: 156.631 kg Body Mass Index (BMI) 49.8 Finger Stick Blood Glucose 131 Intake and Output for Last 24 Hours 12/08/20 12/09/20 12/10/20 23:59 23:59 23:59 Intake Total 720 / 720 840 / 840 940 / 940 Output Total 250 / 250 Balance 470 / 470 840 / 840 940 / 940 Laboratory Results 12/09/20 21:06: POC Glucose 192 H 12/10/20 05:05: WBC 4.5, RBC 2.74 L, Hgb 8.5 L, Hct 29.0 L, MCV 105.8 H, MCH 31.0, MCHC 29.3 L, RDW Std Deviation 70.8 H, RDW Coeff of Gina 18.0 H, Plt Count 94 L, MPV 10.6, Immature Gran % (Auto) 1.100 H, Neut % (Auto) 80.5 H, Lymph % (Auto) 7.9 L, [place] % (Auto) 7.9, Eos % (Auto) 2.4, Baso % (Auto) 0.2, Absolute Neuts (auto) 3.6, Absolute Lymphs (auto) 0.36 L, Nucleated RBC % 0 12/10/20 05:05: Sodium 139, Potassium 5.1, Chloride 106, Carbon Dioxide 26.0, Anion Gap 7, BUN 97 H, Creatinine 3.71 H, Estim Creat Clear Calc 18.58, Est GFR (MDRD) Af Amer 21 L, Est GFR (MDRD) Non-Af 17 L, BUN/Creatinine Ratio 26.1 H, Glucose 128 H, Calcium 8.4 L 03/10/21 06:13: POC Glucose 134 H 12/10/20 11:01: POC Glucose 186 H 12/10/20 16:09: POC Glucose 135 H Current Medications Acetaminophen (Acetaminophen 500 Mg Tablet) 1,000 mg PO Q6H PRN PRN PRN Reason: Pain Score 1-10 Last Admin: 12/09/20 13:25 Dose: 1,000 mg Documented by: Albuterol Sulfate (Albuterol Sulfate 8 Gm Inhaler (60 Puffs)) 2 puff INHALATION Q6H PRN PRN PRN Reason: SOB &/OR WHEEZING Last Admin: 11/12/20 06:40 Dose: 2 puff Documented by: Albuterol Sulfate (Albuterol Sulfate 8 Gm Inhaler (60 Puffs)) 2 puff INHALATION Q6HWA.RT [facility] Allopurinol (Allopurinol 100 Mg Tablet) 100 mg PO DAILYCM [facility] Last Admin: 12/10/20 07:52 Dose: 100 mg Documented by: Aspirin (Aspirin 81 Mg Tab.Chew) 81 mg PO DAILY@0800 [facility] Last Admin: 12/10/20 07:52 Dose: 81 mg Documented by: Atorvastatin Calcium (Atorvastatin Calcium 80 Mg Tablet) 80 mg PO QHS [facility] Last Admin: 12/09/20 20:14 Dose: 80 mg Documented by: Bisacodyl (Bisacodyl 10 Mg Suppository) 10 mg RC DAILY PRN PRN Reason: Constipation Calamine/Phenol (Menthol/Lanolin/Calamine/Znox 113 Gm Tube) 1 applic TOPICAL BID [facility]; Protocol Last Admin: 12/10/20 16:58 Dose: 1 applicatio Documented by: Carvedilol (Carvedilol 25 Mg Tablet) 50 mg PO BID [facility] Last Admin: 12/10/20 16:59 Dose: 50 mg Documented by: Cholecalciferol (Cholecalciferol (Vit D3) 1,000 Unit (25mcg)) 1,000 unit PO SuWeSa@0600 [facility] Last Admin: 12/10/20 04:42 Dose: 1,000 unit Documented by: Clonidine (Clonidine Hcl 0.1 Mg Tablet) 0.3 mg PO BID [facility] Last Admin: 12/10/20 16:59 Dose: 0.3 mg Documented by: Fluticasone Propionate (Fluticasone 0.05% 1 [place] Nasal.Sry) 2 spray NASAL DAILY [facility] Last Admin: 12/10/20 04:38 Dose: 2 spray Documented by: Furosemide (Furosemide 40 Mg Tablet) 40 mg PO DAILY [facility] Last Admin: 12/10/20 04:42 Dose: 40 mg Documented by: Hydralazine HCl (Hydralazine 25 Mg Tablet) 25 mg PO TID [facility] Last Admin: 12/10/20 14:04 Dose: Not Given Documented by: Insulin Glargine (Insulin Glargine 100 Units/Ml Pen) 20 units SC BREAKFAST [facility] Last Admin: 12/10/20 07:50 Dose: 20 u Documented by: Insulin Glargine (Insulin Glargine 100 Units/Ml Pen) 20 units SC DINNER [facility] Last Admin: 12/10/20 16:53 Dose: 20 u Documented by: Insulin Human Lispro (Insulin Lispro 100 Unit/Ml Insuln.Pen) 10 unit SC BREAKFAST [facility] Last Admin: 12/10/20 07:49 Dose: 10 u Documented by: Insulin Human Lispro (Insulin Lispro 100 Unit/Ml Insuln.Pen) 10 unit SC DINNER [facility] Last Admin: 12/10/20 16:54 Dose: 10 units Documented by: Insulin Human Lispro (Insulin Lispro 100 Unit/Ml Insuln.Pen) 10 unit SC LUNCH [facility] Last Admin: 12/10/20 11:06 Dose: 10 u Documented by: Isosorbide Mononitrate (Isosorbide Mononitrate 120 Mg Tablet) 120 mg PO DAILY [facility] Last Admin: 12/10/20 04:42 Dose: 120 mg Documented by: Magnesium Hydroxide (Magnesium Hydroxide 30 Ml Ud) 30 ml PO DAILY PRN PRN Reason: Constipation Last Admin: 12/08/20 06:12 Dose: 30 ml Documented by: Multi-Ingredient Cream (Mineral Oil/Petrolatum,White Jar) 1 applic TOPICAL BID [facility]; Protocol Last Admin: 12/10/20 16:58 Dose: 1 applicatio Documented by: Nitroglycerin (Nitroglycerin (Inpatient Use) 0.4 Mg Tab.Subl) 0.4 mg SUBLINGUAL Q5M PRN PRN Reason: CARDIAC/CHEST PAIN Nystatin (Nystatin Powder 15gm Bottle) 1 applic TOPICAL TID [facility]; Protocol Last Admin: 12/10/20 14:04 Dose: 1 applicatio Documented by: Ondansetron HCl (Ondansetron 8 Mg Tablet) 8 mg PO Q8H PRN PRN PRN Reason: NAUSEA Last Admin: 12/10/20 16:52 Dose: 8 mg Documented by: Polyethylene Glycol (Polyethylene Glycol 3350 17 Gm Packet) 17 gm PO DAILY [facility] Last Admin: 12/10/20 04:38 Dose: 17 gm Documented by: Senna/Docusate Sodium (Senna/Docusate Sodium 1 Tablet) 2 tablet PO BID [facility] Last Admin: 12/10/20 16:59 Dose: 2 tablet Documented by: Sodium Chloride (0.9% Saline Lock 10 Ml Syringe) 10 - 40 ml IV UD PRN PRN Reason: SALINE FLUSH Last Admin: 12/04/20 03:23 Dose: 10 ml Documented by: Tamsulosin HCl (Tamsulosin Hcl 0.4 Mg Capsule) 0.4 mg PO DAILY@1730 [facility] Last Admin: 12/10/20 16:53 Dose: 0.4 mg Documented by: Umeclidinium [place] (Umeclidinium [place] Inhaler) 1 puff IH DAILY [facility] Last Admin: 12/10/20 04:38 Dose: 1 puff Documented by: Discharge Diet: No Restrictions Discharge Activity: Return to Normal Activity, May Shower, Use Walker Weight Bearing Status: Weight bearing as tolerated Call your doctor if you observe: Fever of 101 or Higher, Inability to urinate, Inability to have a bowel movement, Shortness of breath, Chest pain, Uncontrolled pain Home Medications: Medications to take at Discharge Aspirin [Aspirin, Baby] 81 mg PO DAILY 03/03/15 Fluticasone 0.05% [Flonase Nasal [place]] 2 spray NASAL DAILY 12/31/15 Allopurinol [Zyloprim] 100 mg PO DAILYCM 03/03/19 Carvedilol [Coreg] 50 mg PO BID 03/03/19 Cholecalciferol (VIT D3) [Vitamin D3] 1,000 unit PO SUWESA 03/03/19 Clonidine HCl [Catapres] 0.3 mg PO BID 03/03/19 Isosorbide Mononitrate [Isosorbide Mononitrate ER] 120 mg PO DAILY 03/03/19 Umeclidinium Brm/Vilanterol Tr [Anoro Ellipta 62.5-25 Mcg INH] 1 puff IH DAILY 03/03/19 hydrALAZINE [Apresoline] 25 mg PO TID 03/03/19 atorvastatin 80 mg tablet 80 mg PO QHS #90 tab 04/04/19 Albuterol Inhaler [Ventolin Hfa] 2 puff INHALATION Q6H PRN PRN 04/27/19 Nitroglycerin (INPATIENT USE) [Nitrostat] 0.4 mg SUBLINGUAL Q5M PRN 09/19/20 Insulin Glargine [Lantus SoloStar Pen] 30 units SC BREAKFAST #1 pen 11/11/20 Insulin Glargine [Lantus SoloStar Pen] 30 units SC DINNER #1 pen 11/11/20 Insulin Lispro [Humalog KwikPen] 5 unit SC BREAKFAST insuln.pen 11/11/20 Insulin Lispro [Humalog KwikPen] 5 unit SC DINNER insuln.pen 11/11/20 Insulin Lispro [Humalog KwikPen] 5 unit SC LUNCH insuln.pen 11/11/20 Nystatin Powder [Mycostatin Powder] 1 applic TOPICAL TID bottle 11/11/20 Acetaminophen [Tylenol] 1,000 mg PO Q6H PRN PRN tablet 12/10/20 Furosemide [Lasix] 40 mg PO DAILY #30 tab 12/10/20 Menthol/Lanolin/Calamine/Znox [Calmoseptine Ointment] 1 applic TOPICAL BID tube 12/10/20 Mineral Oil/Petrolatum,White [Eucerin] 1 applic TOPICAL BID jar 12/10/20 Ondansetron [Zofran] 8 mg PO Q8H PRN PRN #90 tab 12/10/20 Polyethylene Glycol 3350 [Miralax] 17 gm PO DAILY #30 packet 12/10/20 Senna/Docusate Sodium [Senokot-S] 2 tab PO BID #120 tab 12/10/20 Tamsulosin HCl [Flomax] 0.4 mg PO DAILY@1730 #30 cap 12/10/20 Following Prescriptions Were Given to Patient: Tamsulosin HCl [Flomax] 0.4 mg PO DAILY@1730 #30 cap Transmission Status: Pending to [employer] #30 Furosemide [Lasix] 40 mg PO DAILY #30 tab Transmission Status: Pending to [employer] #30 Polyethylene Glycol 3350 [Miralax] 17 gm PO DAILY #30 packet Transmission Status: Pending to [employer] #30 Senna/Docusate Sodium [Senokot-S] 2 tab PO BID #120 tab Transmission Status: Pending to [employer] #30 Ondansetron [Zofran] 8 mg PO Q8H PRN PRN #90 tab PRN Reason: NAUSEA Transmission Status: Pending to [facility] #30 Primary Care Physician: Jean-Claude Garcia MD [Primary Care Provider] - Please follow up with your Primary Care Physician in: 1 week. Please Follow Up With: Vickie Gutierrez DO When: 2 weeks. Please Follow Up With: Juan Camarena DO When: 2 weeks. Please Follow Up With: Juan Camarena DO Please Follow Up With: Juan Camarena DO Disposition: Home with Home Health Minutes spent on discharge:: 35 Patient Condition:: Stable Medical Necessity - Tobacco Use Smoking Status: Former smoker Tobacco Use: Non-smoker Meaningful Use Info Meaningful Use Diagnoses (Choose all that apply): None applicable
[2020-12-10 21:36] LABS: Bedside Glucose 177 mg/dL (70-110)
[2020-12-10] MEDS: Atorvastatin Calcium 80 MG Tablet PO (21:36)
[2020-12-11] VITALS (9 sets, daily range): BP systolic 125–152; BP diastolic 49–54; PULSE 60; RESP 17–18; TEMP 36.6–36.8; O2SAT 92–96
[2020-12-11] MEDS: Fluticasone 0.05% 1 SPRAY NASAL.SRY 2 SPRAY NASAL (05:21)
[2020-12-11] MEDS: hydrALAZINE 25 MG Tablet PO ×3 (05:22→21:39)
[2020-12-11] MEDS: cloNIDine HCl 0.1 MG Tablet 0.3 MG PO ×2 (05:22→17:51)
[2020-12-11] MEDS: Carvedilol 25 MG Tablet 50 MG PO ×2 (05:23→17:51)
[2020-12-11] MEDS: Senna/Docusate Sodium 1 Tablet 2 TABLET PO ×2 (05:23→17:52)
[2020-12-11] MEDS: Furosemide 40 MG Tablet PO (05:23)
[2020-12-11] MEDS: Polyethylene Glycol 3350 17 GM PACKET PO (05:24)
[2020-12-11] MEDS: Nystatin Powder 15gm Bottle 1 APPLIC TOPICAL ×3 (05:27→21:40)
[2020-12-11] MEDS: Menthol/Lanolin/Calamine/Znox 113 GM Tube 1 APPLIC TOPICAL ×2 (05:27→17:52)
[2020-12-11] MEDS: Umeclidinium Bromide Inhaler 1 PUFF IH (05:28)
[2020-12-11] MEDS: Insulin Lispro 100 UNIT/ML INSULN.PEN 10 UNIT SC ×3 (07:55→17:49)
[2020-12-11] MEDS: Aspirin 81 MG TAB.CHEW PO (07:56)
[2020-12-11] MEDS: Allopurinol 100 MG Tablet PO (07:56)
--- NOTE | 2020-12-11 09:46 | NURSING ---
PT SITTING IN RECLINER OXYGEN 93% RA. WHEN PT GOT UP TO WALK WITH THERAPY HIS OXYGEN DROPPED TO 85% RA. APPLIED 02 AT 1L AND OXYGEN CAME BACK UP TO 94%. RN AWARE.
[2020-12-11 11:06] LABS: Bedside Glucose 161 mg/dL (70-110)
--- NOTE | 2020-12-11 11:35 | NURSING ---
PT STATED HE UPDATES FAMILY.
--- NOTE | 2020-12-11 15:32 | CASEMGMT ---
Social Work Followed up with patient on [facility] choice. Pt prefers [facility] then [facility]. [place] only accepts Medicaid. Referral made to [facility] PT/OT/SN/ODONNELL. NAS GranadosW
[2020-12-11 16:36] LABS: Bedside Glucose 124 mg/dL (70-110)
[2020-12-11] MEDS: Ondansetron 8 MG Tablet PO (17:25)
--- NOTE | 2020-12-11 17:27 | NURSING ---
PT NAUSEATED AND DRY HEAVING. GAVE PRN ZOFRAN.
[2020-12-11] MEDS: Tamsulosin HCl 0.4 MG Capsule PO (17:51)
[2020-12-11 21:31] LABS: Bedside Glucose 114 mg/dL (70-110)
[2020-12-11] MEDS: Atorvastatin Calcium 80 MG Tablet PO (21:39)
[2020-12-12] VITALS (7 sets, daily range): BP systolic 124–153; BP diastolic 55–72; PULSE 57–66; RESP 16–18; TEMP 36.2–36.6; O2SAT 90–95
[2020-12-12] MEDS: Fluticasone 0.05% 1 SPRAY NASAL.SRY 2 SPRAY NASAL (05:45)
[2020-12-12] MEDS: Umeclidinium Bromide Inhaler 1 PUFF IH (05:45)
[2020-12-12] MEDS: cloNIDine HCl 0.1 MG Tablet 0.3 MG PO ×2 (05:46→18:28)
[2020-12-12] MEDS: Carvedilol 25 MG Tablet 50 MG PO ×2 (05:46→18:29)
[2020-12-12] MEDS: Furosemide 40 MG Tablet PO (05:47)
[2020-12-12] MEDS: hydrALAZINE 25 MG Tablet PO ×3 (05:47→22:11)
[2020-12-12] MEDS: Senna/Docusate Sodium 1 Tablet 2 TABLET PO ×2 (05:47→18:29)
[2020-12-12] MEDS: Polyethylene Glycol 3350 17 GM PACKET PO (05:49)
[2020-12-12] MEDS: Nystatin Powder 15gm Bottle 1 APPLIC TOPICAL ×3 (05:51→22:12)
[2020-12-12] MEDS: Menthol/Lanolin/Calamine/Znox 113 GM Tube 1 APPLIC TOPICAL ×2 (05:51→18:27)
[2020-12-12 06:26] LABS: Bedside Glucose 80 mg/dL (70-110)
[2020-12-12] MEDS: Aspirin 81 MG TAB.CHEW PO (07:57)
[2020-12-12] MEDS: Allopurinol 100 MG Tablet PO (07:57)
[2020-12-12 11:00] LABS: Bedside Glucose 145 mg/dL (70-110)
[2020-12-12] MEDS: Insulin Lispro 100 UNIT/ML INSULN.PEN 10 UNIT SC (11:52)
--- NOTE | 2020-12-12 13:43 | CASEMGMT ---
Social Work [facility] is unable to accept d/t to not a reliable teachable caregiver. SW left message with wound center to inquire about scheduling appts for pt to come in to get dressing changed and how often. Pt is aware and able to utilize transport resources provided by [facility] to get to wound center. Pt agreeable to referral to [facility]. Referral made. Daxa Hines, MASTER CONTROL ENGINEER [employer]ELD SCOUT
[2020-12-12 16:20] LABS: Bedside Glucose 145 mg/dL (70-110)
[2020-12-12] MEDS: Tamsulosin HCl 0.4 MG Capsule PO (18:28)
[2020-12-12] MEDS: Acetaminophen 500 MG Tablet 1000 MG PO (18:31)
--- NOTE | 2020-12-12 18:54 | NURSING ---
this nurse into pt room to pass meds at 1730 and seen pt left lower post leg dressings were covered in blood and dripping on floor. pt to bed and found a area that was cracked open and bleeding. pressure applied.area cleaned, adaptic,abd,gaze and ana wrap. leg elevated with pillows. karla legs are swollen and pitting +3. earlier at 1400 pt had a similar area on front of left leg. rn aware.
--- NOTE | 2020-12-12 18:57 | NURSING ---
notified dr vines of increased edema to BLEs, blisters are starting tops of feet and upper shins. new order to start IV lasix 40 mg now and then starting sat BID. recheck BMP on tuesday. pt resting in bed, elevate legs.
[2020-12-12 21:31] LABS: Bedside Glucose 184 mg/dL (70-110)
[2020-12-12] MEDS: Atorvastatin Calcium 80 MG Tablet PO (22:12)
[2020-12-12] MEDS: Furosemide 40 MG/4 ML Vial IV (22:53)
[2020-12-12] MEDS: 0.9% Saline Lock 10 ML Syringe IV (22:53)
[2020-12-13] VITALS (7 sets, daily range): BP systolic 121–155; BP diastolic 47–51; PULSE 58–88; RESP 18; TEMP 36.7–36.8; O2SAT 90–98
[2020-12-13] MEDS: Ondansetron 8 MG Tablet PO ×2 (03:01→17:25)
[2020-12-13 06:26] LABS: Bedside Glucose 116 mg/dL (70-110)
[2020-12-13] MEDS: Polyethylene Glycol 3350 17 GM PACKET PO (06:45)
[2020-12-13] MEDS: Fluticasone 0.05% 1 SPRAY NASAL.SRY 2 SPRAY NASAL (06:46)
[2020-12-13] MEDS: Umeclidinium Bromide Inhaler 1 PUFF IH (06:46)
[2020-12-13] MEDS: Menthol/Lanolin/Calamine/Znox 113 GM Tube 1 APPLIC TOPICAL ×2 (06:47→17:22)
[2020-12-13] MEDS: Carvedilol 25 MG Tablet 50 MG PO ×2 (06:47→17:26)
[2020-12-13] MEDS: cloNIDine HCl 0.1 MG Tablet 0.3 MG PO ×2 (06:47→17:26)
[2020-12-13] MEDS: Senna/Docusate Sodium 1 Tablet 2 TABLET PO ×2 (06:47→17:23)
[2020-12-13] MEDS: hydrALAZINE 25 MG Tablet PO ×2 (06:48→20:39)
[2020-12-13] MEDS: Nystatin Powder 15gm Bottle 1 APPLIC TOPICAL ×3 (06:48→20:46)
[2020-12-13] MEDS: Aspirin 81 MG TAB.CHEW PO (08:33)
[2020-12-13] MEDS: Allopurinol 100 MG Tablet PO (08:33)
[2020-12-13] MEDS: Insulin Lispro 100 UNIT/ML INSULN.PEN 10 UNIT SC ×3 (08:37→17:20)
[2020-12-13] MEDS: Furosemide 40 MG/4 ML Vial IV ×2 (09:20→19:19)
[2020-12-13] MEDS: 0.9% Saline Lock 10 ML Syringe IV ×2 (09:21→19:20)
[2020-12-13 10:21] LABS: Bedside Glucose 170 mg/dL (70-110)
[2020-12-13 16:30] LABS: Bedside Glucose 110 mg/dL (70-110)
[2020-12-13] MEDS: Tamsulosin HCl 0.4 MG Capsule PO (17:22)
[2020-12-13] MEDS: Atorvastatin Calcium 80 MG Tablet PO (20:39)
[2020-12-13 21:50] LABS: Bedside Glucose 147 mg/dL (70-110)
[2020-12-14 05:00] VITALS: BP 105/48; PULSE 61; RESP 16; TEMP 36.4; O2SAT 97
[2020-12-14 06:21] LABS: Bedside Glucose 91 mg/dL (70-110)
[2020-12-14 06:43] LABS: Anion Gap 6 (5-15); BUN 91 mg/dL (7-18); BUN/Creat Ratio 25.4 RATIO (10-20); Calcium,Total 8.3 mg/dL (8.5-10.1); Chloride 106 mmol/L (98-107); Creatinine, Serum 3.58 mg/dL (0.70-1.30); EST Glomerular Filtration Rate 18 mL/min (>60); Est Glom Filt Rate - Afr Amer 22 mL/min (>60); Estimated Creatinine Clearance 19.26 ml/min; Glucose 87 mg/dL (74-106); Potassium 4.8 mmol/L (3.5-5.1); Sodium Level 138 mmol/L (136-145)
[2020-12-14] MEDS: Polyethylene Glycol 3350 17 GM PACKET PO (07:11)
[2020-12-14] MEDS: Umeclidinium Bromide Inhaler 1 PUFF IH (07:11)
[2020-12-14] MEDS: Fluticasone 0.05% 1 SPRAY NASAL.SRY 2 SPRAY NASAL (07:11)
[2020-12-14 07:15] VITALS: PULSE 61
[2020-12-14] MEDS: cloNIDine HCl 0.1 MG Tablet 0.3 MG PO ×2 (07:15→17:28)
[2020-12-14] MEDS: hydrALAZINE 25 MG Tablet PO ×2 (07:15→21:13)
[2020-12-14] MEDS: Senna/Docusate Sodium 1 Tablet 2 TABLET PO ×2 (07:15→17:29)
[2020-12-14] MEDS: Allopurinol 100 MG Tablet PO (07:15)
[2020-12-14] MEDS: Aspirin 81 MG TAB.CHEW PO (07:15)
[2020-12-14] MEDS: Carvedilol 25 MG Tablet 50 MG PO ×2 (07:15→17:29)
[2020-12-14] MEDS: Menthol/Lanolin/Calamine/Znox 113 GM Tube 1 APPLIC TOPICAL ×2 (07:17→17:31)
[2020-12-14] MEDS: Nystatin Powder 15gm Bottle 1 APPLIC TOPICAL ×3 (07:18→21:15)
[2020-12-14] MEDS: Insulin Lispro 100 UNIT/ML INSULN.PEN 10 UNIT SC ×3 (08:05→17:32)
[2020-12-14 10:00] VITALS: PULSE 56; O2SAT 89
[2020-12-14] MEDS: Furosemide 40 MG/4 ML Vial IV ×2 (10:17→18:50)
[2020-12-14] MEDS: 0.9% Saline Lock 10 ML Syringe IV ×2 (10:17→18:52)
[2020-12-14 10:56] LABS: Bedside Glucose 120 mg/dL (70-110)
[2020-12-14 13:24] VITALS: BP 126/49; PULSE 65; RESP 20; TEMP 36.5; O2SAT 93
[2020-12-14 16:16] LABS: Bedside Glucose 152 mg/dL (70-110)
[2020-12-14] MEDS: Ondansetron 8 MG Tablet PO (17:28)
[2020-12-14] MEDS: Tamsulosin HCl 0.4 MG Capsule PO (17:29)
[2020-12-14 17:34] VITALS: BP 142/58; PULSE 63
[2020-12-14 21:13] VITALS: BP 150/47; PULSE 55
[2020-12-14] MEDS: Atorvastatin Calcium 80 MG Tablet PO (21:13)
[2020-12-14 21:41] LABS: Bedside Glucose 146 mg/dL (70-110)
[2020-12-15] VITALS (8 sets, daily range): BP systolic 135–157; BP diastolic 43–54; PULSE 54–66; RESP 14–20; TEMP 36.3–36.4; O2SAT 90–98
[2020-12-15] MEDS: Fluticasone 0.05% 1 SPRAY NASAL.SRY 2 SPRAY NASAL (05:42)
[2020-12-15] MEDS: Umeclidinium Bromide Inhaler 1 PUFF IH (05:42)
[2020-12-15] MEDS: Polyethylene Glycol 3350 17 GM PACKET PO (05:44)
[2020-12-15] MEDS: cloNIDine HCl 0.1 MG Tablet 0.3 MG PO ×2 (05:44→17:31)
[2020-12-15] MEDS: Carvedilol 25 MG Tablet 50 MG PO ×2 (05:44→17:31)
[2020-12-15] MEDS: hydrALAZINE 25 MG Tablet PO ×3 (05:44→21:33)
[2020-12-15] MEDS: Senna/Docusate Sodium 1 Tablet 2 TABLET PO ×2 (05:44→17:31)
[2020-12-15] MEDS: Menthol/Lanolin/Calamine/Znox 113 GM Tube 1 APPLIC TOPICAL ×2 (05:47→17:29)
[2020-12-15] MEDS: Nystatin Powder 15gm Bottle 1 APPLIC TOPICAL ×3 (05:47→21:34)
[2020-12-15 06:21] LABS: Bedside Glucose 71 mg/dL (70-110)
[2020-12-15] MEDS: Aspirin 81 MG TAB.CHEW PO (07:51)
[2020-12-15] MEDS: Allopurinol 100 MG Tablet PO (07:52)
[2020-12-15] MEDS: 0.9% Saline Lock 10 ML Syringe IV ×2 (11:13→21:27)
--- NOTE | 2020-12-15 11:25 | NURSING ---
IV to Rt forearm leaking and infilrated. Unable to give IV lasix at this time. This RN unable to restart a new IV. Will notify field crop farming supervisor when she is available to see if she is able to attempt it.
[2020-12-15 11:30] LABS: Bedside Glucose 167 mg/dL (70-110)
[2020-12-15] MEDS: Insulin Lispro 100 UNIT/ML INSULN.PEN 10 UNIT SC (11:40)
[2020-12-15] MEDS: Furosemide 40 MG/4 ML Vial IV ×2 (13:29→21:26)
--- NOTE | 2020-12-15 14:03 | NURSING ---
pt stated he updates family
--- NOTE | 2020-12-15 14:14 | NURSING ---
JANESRN/WOUND NURSE DID PT LEG DRESSINGS.
--- NOTE | 2020-12-15 15:54 | NURSING ---
wound photo: right foot
--- NOTE | 2020-12-15 15:55 | NURSING ---
wound photo: left lower leg
--- NOTE | 2020-12-15 15:56 | NURSING ---
wound photo: left lower leg
[2020-12-15 16:26] LABS: Bedside Glucose 161 mg/dL (70-110)
[2020-12-15] MEDS: Tamsulosin HCl 0.4 MG Capsule PO (17:31)
[2020-12-15] MEDS: Ondansetron 8 MG Tablet PO (17:34)
[2020-12-15 21:26] LABS: Bedside Glucose 183 mg/dL (70-110)
[2020-12-15] MEDS: Atorvastatin Calcium 80 MG Tablet PO (21:33)
--- NOTE | 2020-12-15 23:03 | NURSING ---
Wounds draining through dressings, large amount of serous drainage noted on removal of wrapping. Changed dressings to BLE. Patient tolerated well.
[2020-12-16] VITALS (10 sets, daily range): BP systolic 131–155; BP diastolic 52–65; PULSE 58–65; RESP 16–18; TEMP 36.5–36.6; O2SAT 83–96
[2020-12-16] MEDS: Polyethylene Glycol 3350 17 GM PACKET PO (05:04)
[2020-12-16] MEDS: Senna/Docusate Sodium 1 Tablet 2 TABLET PO ×2 (05:07→17:34)
[2020-12-16] MEDS: Menthol/Lanolin/Calamine/Znox 113 GM Tube 1 APPLIC TOPICAL ×2 (05:08→17:32)
[2020-12-16] MEDS: Fluticasone 0.05% 1 SPRAY NASAL.SRY 2 SPRAY NASAL (05:09)
[2020-12-16] MEDS: Nystatin Powder 15gm Bottle 1 APPLIC TOPICAL ×3 (05:09→22:01)
[2020-12-16] MEDS: Umeclidinium Bromide Inhaler 1 PUFF IH (05:12)
[2020-12-16 06:21] LABS: Bedside Glucose 124 mg/dL (70-110)
[2020-12-16] MEDS: hydrALAZINE 25 MG Tablet PO ×3 (06:40→22:00)
[2020-12-16] MEDS: cloNIDine HCl 0.1 MG Tablet 0.3 MG PO ×2 (06:40→17:32)
[2020-12-16] MEDS: Carvedilol 25 MG Tablet 50 MG PO ×2 (06:41→17:32)
[2020-12-16] MEDS: Insulin Lispro 100 UNIT/ML INSULN.PEN 10 UNIT SC ×2 (07:46→11:35)
[2020-12-16] MEDS: Allopurinol 100 MG Tablet PO (07:46)
[2020-12-16] MEDS: Aspirin 81 MG TAB.CHEW PO (07:46)
--- NOTE | 2020-12-16 09:03 | NURSING ---
pt off unit to Dr Camarena appt via [facility]
--- NOTE | 2020-12-16 10:37 | NURSING ---
PT RETURNED TO FLOOR BY WHEEL CHAIR FROM APPOINTMENT AT 10:30.
[2020-12-16] MEDS: Furosemide 40 MG/4 ML Vial IV ×2 (10:47→18:32)
[2020-12-16] MEDS: 0.9% Saline Lock 10 ML Syringe IV ×2 (10:47→18:32)
--- NOTE | 2020-12-16 10:54 | NURSING ---
pt returned from dr Camarena, no new orders. labs sent. HGB 9.1 today per their records. pt will have labs drawn tomorrow here.
[2020-12-16 11:15] LABS: Bedside Glucose 146 mg/dL (70-110)
--- NOTE | 2020-12-16 11:33 | NURSING ---
PT STATED HE UPDATES FAMILY
--- NOTE | 2020-12-16 13:04 | CASEMGMT ---
Social Work Left another message with Juan at the wound center to get appts scheduled. Will continue to follow. NAS GranadosW
[2020-12-16 16:31] LABS: Bedside Glucose 116 mg/dL (70-110)
[2020-12-16] MEDS: Ondansetron 8 MG Tablet PO (17:26)
[2020-12-16] MEDS: Tamsulosin HCl 0.4 MG Capsule PO (17:32)
[2020-12-16 21:50] LABS: Bedside Glucose 142 mg/dL (70-110)
[2020-12-16] MEDS: Atorvastatin Calcium 80 MG Tablet PO (21:59)
[2020-12-17 05:00] VITALS: BP 135/52; PULSE 60; RESP 18; TEMP 37.1; O2SAT 96
[2020-12-17] MEDS: cloNIDine HCl 0.1 MG Tablet 0.3 MG PO (05:23)
[2020-12-17] MEDS: Carvedilol 25 MG Tablet 50 MG PO (05:23)
[2020-12-17] MEDS: Fluticasone 0.05% 1 SPRAY NASAL.SRY 2 SPRAY NASAL (05:23)
[2020-12-17] MEDS: Umeclidinium Bromide Inhaler 1 PUFF IH (05:23)
[2020-12-17 05:24] VITALS: BP 135/52; PULSE 60
[2020-12-17] MEDS: Senna/Docusate Sodium 1 Tablet 2 TABLET PO (05:24)
[2020-12-17] MEDS: hydrALAZINE 25 MG Tablet PO (05:24)
[2020-12-17] MEDS: Nystatin Powder 15gm Bottle 1 APPLIC TOPICAL (05:29)
[2020-12-17] MEDS: Menthol/Lanolin/Calamine/Znox 113 GM Tube 1 APPLIC TOPICAL (05:30)
[2020-12-17] MEDS: Polyethylene Glycol 3350 17 GM PACKET PO (05:31)
[2020-12-17 05:45] LABS: Absolute Lymphocyte Count 0.35 X10^3/uL (0.83-4.51); Absolute Neutrophil Count 4.1 X10^3/uL (2.0-7.7); Basophil# 0.03 X10^3/uL; Basophil% 0.6 % (0-1); Eosinophil# 0.08 X10^3/uL; Eosinophils% 1.6 % (0-5); Hematocrit 31.2 % (40-54); Hemoglobin 9.4 g/dL (13.0-16.5); Lymphocyte # 0.35 X10^3/ul (4.0); Lymphocyte % 6.9 % (19-41); Mean Corp Hgb Conc 30.1 g/dL (32-36); Mean Corpuscular Hgb 31.8 pg (27.0-32.0); Mean Corpuscular Volume 105.4 fL (80-94); Mean Platelet Vol. 10.1 fl (6.2-12.0); Monocyte# 0.48 X10^3/uL; Monocyte% 9.5 % (0-10); NRBC Flagged by Analyzer 0 % (0-5); Neutrophil % 81.2 % (47-70); POSITIVE DIFFERENTIAL YES; POSITIVE MORPHOLOGY YES; Platelet Count 108 K/mm3 (150-450); RBC Distribution Width CV 18.1 % (11.6-14.6); RBC Distribution Width SD 70.1 fl (35.1-43.9); Red Blood Count 2.96 M/mm3 (4.6-6.2); White Blood Count 5.1 K/mm3 (4.4-11.0)
[2020-12-17 05:48] LABS: Differential Indicated SCAN CRITERIA MET
[2020-12-17 05:59] LABS: Anion Gap 5 (5-15); BUN 87 mg/dL (7-18); BUN/Creat Ratio 25.4 RATIO (10-20); Calcium,Total 8.5 mg/dL (8.5-10.1); Chloride 106 mmol/L (98-107); Creatinine, Serum 3.42 mg/dL (0.70-1.30); EST Glomerular Filtration Rate 19 mL/min (>60); Est Glom Filt Rate - Afr Amer 23 mL/min (>60); Estimated Creatinine Clearance 20.16 ml/min; Glucose 112 mg/dL (74-106); Potassium 4.5 mmol/L (3.5-5.1); Sodium Level 139 mmol/L (136-145)
[2020-12-17 06:11] LABS: Differential Comment SCANNED
[2020-12-17 06:12] LABS: Acanthocytes RARE; Anisocytosis 2+; Macrocytosis 2+; Ovalocyte RARE
[2020-12-17 06:13] LABS: Microcytosis RARE
[2020-12-17 06:25] LABS: Bedside Glucose 105 mg/dL (70-110)
[2020-12-17] MEDS: Allopurinol 100 MG Tablet PO (08:05)
[2020-12-17] MEDS: Aspirin 81 MG TAB.CHEW PO (08:05)
[2020-12-17] MEDS: Insulin Lispro 100 UNIT/ML INSULN.PEN 10 UNIT SC (08:07)
--- NOTE | 2020-12-17 08:40 | CASEMGMT ---
Social Work Contacted the wound center again. Spoke with Juan to inquire about scheduling appts. Juan stated he reviewed pt's case and spoke with wound nurse - pt's wounds are healing well and no longer recommending daily wound changes. Explained a new order will be needed to adjust that and C will need to be aware. Juan agreed and scheduled appt with Hemal Saenz NP, 12/18 at 1400 to see pt and adjust order, and he will send order to [facility]. SW appreciative. Spoke with pt and updated on above information. Pt agreeable and stated he could arrange transportation for visit. Daxa Hines, NAS GANDHIW
[2020-12-17 08:54] VITALS: O2SAT 97
[2020-12-17] MEDS: Furosemide 40 MG/4 ML Vial IV (10:57)
[2020-12-17] MEDS: 0.9% Saline Lock 10 ML Syringe IV (10:58)
[2020-12-17 11:06] LABS: Bedside Glucose 150 mg/dL (70-110)
[2020-12-17 12:42] VITALS: BP 119/54; PULSE 63; RESP 18; TEMP 36.6; O2SAT 97
== END 2020-12-17 12:00 | disposition home health service (06) | DRG 291 ==
PROVIDERS: Admitting Provider Family Medicine Geriatric Medicine; PCP Family Medicine; Visit Provider Family Medicine Geriatric Medicine
DX: I13.0 Hypertensive heart and chronic kidney disease with heart failure and stage 1 through stage 4 chronic kidney disease, or unspecified chronic kidney disease (principal); I50.33 Acute on chronic diastolic (congestive) heart failure; Z68.42 Body mass index [BMI] 45.0-49.9, adult; I25.10 Atherosclerotic heart disease of native coronary artery without angina pectoris; B35.4 Tinea corporis; E55.9 Vitamin D deficiency, unspecified; E78.5 Hyperlipidemia, unspecified; E11.22 Type 2 diabetes mellitus with diabetic chronic kidney disease; J44.9 Chronic obstructive pulmonary disease, unspecified; N18.30 Chronic kidney disease, stage 3 unspecified; N40.0 Benign prostatic hyperplasia without lower urinary tract symptoms; I27.21 Secondary pulmonary arterial hypertension; G47.33 Obstructive sleep apnea (adult) (pediatric); E66.01 Morbid (severe) obesity due to excess calories; M10.9 Gout, unspecified; Z87.891 Personal history of nicotine dependence; K56.41 Fecal impaction
CPT/HCPCS: 36415; 71046; 74018; 80048; 81001; 82274; 82962; 83880; 85014; 85018; 85025; 87086; 87635; 97110; 97116; 97162; 97166; 97530; 97535; 97802; J7030; J7040; U0005; A4216; J1940; U0003

== ENCOUNTER 2020-12-25 14:40 | Outpatient (RCR) | payer MEDICARE, OTHER, SELFPAY ==
[2020-11-11 16:41] VITALS: BMI 49.8
[2020-12-25 15:14] VITALS: BP 181/66; PULSE 75; RESP 24; TEMP 36.6; BMI 49.8
[2020-12-25 15:42] VITALS: BMI 49.8
--- NOTE | 2020-12-25 16:05 | PCM.WC.HP ---
(1) Venous stasis ulcer of left lower extremity Status: Acute Code(s): I83.029 - Varicose veins of left lower extremity with ulcer of unspecified site; L97.929 - Non-pressure chronic ulcer of unspecified part of left lower leg with unspecified severity (2) (HFpEF) heart failure with preserved ejection fraction Status: Acute Qualifiers: Code(s): I50.30 - Unspecified diastolic (congestive) heart failure (3) Acute on chronic diastolic congestive heart failure Status: Acute Code(s): I50.33 - Acute on chronic diastolic (congestive) heart failure (4) Debility Status: Acute Code(s): R53.81 - Other malaise (5) Hypoxia Status: Acute Code(s): R09.02 - Hypoxemia (6) Body mass index 45.0-49.9, adult Status: Chronic Code(s): Z68.42 - Body mass index [BMI] 45.0-49.9, adult (7) Chronic diastolic (congestive) heart failure Status: Chronic Code(s): I50.32 - Chronic diastolic (congestive) heart failure (8) Chronic kidney disease (CKD) Status: Chronic Code(s): N18.9 - Chronic kidney disease, unspecified (9) Diabetes mellitus, type II Status: Chronic Qualifiers: Code(s): E11.9 - Type 2 diabetes mellitus without complications (10) Essential (primary) hypertension Status: Chronic Code(s): I10 - Essential (primary) hypertension (11) Lymphedema of both lower extremities Status: Chronic Code(s): I89.0 - Lymphedema, not elsewhere classified (12) Morbid obesity Status: Chronic Code(s): E66.01 - Morbid (severe) obesity due to excess calories (13) IMAN (obstructive sleep apnea) Status: Chronic Code(s): G47.33 - Obstructive sleep apnea (adult) (pediatric) History of Present Illness Date of Service: 12/25/20 Chief Complaint: Venous leg ulcer left lower extremity History of Wound: This is a 70-year-old white male who presents with his brother today to the wound healing center for complaints of bilateral lower extremity swelling and also a nonhealing venous leg ulcer over the last 6 weeks. He has a past medical history significant for CHF, hypoxia, anemia, CKD, diabetes, and morbid obesity. He recently was admitted to TCU from 11/07/2020 through 12/17/2020 with debility, hypoxia, and acute on chronic CHF. The patient states that since being discharged from the hospital his shortness of breath has significantly worsened and that his swelling in his lower extremities have worsened as well. He notes constant large copious amounts of drainage from his bilateral lower extremities. He also states now that the swelling is up to his lower abdomen. He admits to orthopnea. As for his wound care he has been having nursing come out to his home every other day and utilize Aquacel extra and Rickey wraps. He denies any other acute concerns at this time. Past medical, family, and social history reviewed and not pertinent to the current visit and all other systems reviewed and negative with exception of those listed above. Past Medical History Past Medical History: Chronic Problems (Last Reviewed 10/09/20 @ 15:[address] Destin Cain, DO) Chronic diastolic (congestive) heart failure (Chronic) Chronic kidney disease (CKD) (Chronic) Diabetes mellitus (Chronic) Body mass index 45.0-49.9, adult (Chronic) Chronic kidney disease, stage 3 (Chronic) Chronic obstructive pulmonary disease (Chronic) Allergic rhinitis (Chronic) Gout (Chronic) Vitamin D deficiency (Chronic) Tinea corporis (Chronic) Pulmonary hypertension (Chronic) Morbid obesity (Chronic) Anemia (Chronic) Renal failure (Chronic) Thrombocytopenia (Chronic) Diabetes mellitus, type II (Chronic) IMAN (obstructive sleep apnea) (Chronic) Chronic diastolic (congestive) heart failure (Chronic) Secondary pulmonary arterial hypertension (Chronic) Right bundle branch block (RBBB) (Chronic) Essential (primary) hypertension (Chronic) Hyperlipidemia (Chronic) Lymphedema of both lower extremities (Chronic) Surgical History: cataract, - - AVF left radiocephalic, nasal cyst removal. Allergies/Adverse Reactions: Allergies ARB-Angiotensin Receptor Antagonist Allergy (Verified 11/07/20 10:24) WORSENS RENAL FUNCTION WORSENS RENAL FUNCTION amoxicillin Adverse Reaction (Verified 11/07/20 10:24) Upset Stomach Home Medications: Ambulatory Orders Medication Instructions Recorded Aspirin [Aspirin, Baby] 81 mg PO DAILY 03/03/15 Fluticasone 0.05% [Flonase Nasal 2 spray NASAL DAILY 12/31/15 Pride] Allopurinol [Zyloprim] 100 mg PO DAILYCM 03/03/19 Carvedilol [Coreg] 50 mg PO BID 03/03/19 Cholecalciferol (VIT D3) [Vitamin 1,000 unit PO SUWESA 03/03/19 D3] Clonidine HCl [Catapres] 0.3 mg PO BID 03/03/19 Isosorbide Mononitrate [Isosorbide 120 mg PO DAILY 03/03/19 Mononitrate ER] Umeclidinium Brm/Vilanterol Tr 1 puff IH DAILY 03/03/19 [Anoro Ellipta 62.5-25 Mcg INH] hydrALAZINE [Apresoline] 25 mg PO TID 03/03/19 atorvastatin 80 mg tablet 80 mg PO QHS #90 tab 04/04/19 Albuterol Inhaler [Ventolin Hfa] 2 puff INHALATION Q6H PRN PRN 04/27/19 Nitroglycerin (INPATIENT USE) 0.4 mg SUBLINGUAL Q5M PRN 09/19/20 [Nitrostat] Insulin Glargine [Lantus SoloStar 30 units SC BREAKFAST #1 pen 11/11/20 Pen] Insulin Glargine [Lantus SoloStar 30 units SC DINNER #1 pen 11/11/20 Pen] Insulin Lispro [Humalog KwikPen] 5 unit SC BREAKFAST insuln.pen 11/11/20 Insulin Lispro [Humalog KwikPen] 5 unit SC DINNER insuln.pen 11/11/20 Insulin Lispro [Humalog KwikPen] 5 unit SC LUNCH insuln.pen 11/11/20 Nystatin Powder [Mycostatin Powder] 1 applic TOPICAL TID bottle 11/11/20 Acetaminophen [Tylenol] 1,000 mg PO Q6H PRN PRN tab 12/10/20 Furosemide [Lasix] 40 mg PO DAILY #30 tab 12/10/20 Menthol/Lanolin/Calamine/Znox 1 applic TOPICAL BID tube 12/10/20 [Calmoseptine Ointment] Ondansetron [Zofran] 8 mg PO Q8H PRN PRN #90 tab 12/10/20 Polyethylene Glycol 3350 [Miralax] 17 gm PO DAILY #30 packet 12/10/20 Senna/Docusate Sodium [Senokot-S] 2 tab PO BID #120 tab 12/10/20 Tamsulosin HCl [Flomax] 0.4 mg PO DAILY@1730 #30 cap 12/10/20 - Family History Sibling Family History: Family History (Last Reviewed 10/09/20 @ 15:[address] Destin Cain DO) Other Diabetes Heart disease Hypertension Heart Disease Paternal Family History: Family History (Last Reviewed 10/09/20 @ 15:[address] Destin Cain DO) Other Diabetes Heart disease Hypertension Cancer - Other with a history of possibly lymphoma., Diabetes Maternal Family History: Family History (Last Reviewed 10/09/20 @ 15:[address] Destin Cain DO) Other Diabetes Heart disease Hypertension Diabetes, Heart Disease, Hypertension Smoking Status: Former smoker Review of Systems Constitutional: Denies: Chills, Fever, Weight Change Eyes: Denies: Pain, Vision Change HEENT: Denies: Difficulty Hearing, Difficulty Swallowing, Sinus Congestion Cardiovascular: Reports: Edema, Orthopnea. Denies: Chest Pain, Palpitations Respiratory: Reports: Shortness of Breath, Shortness of breath at rest, Shortness of breath upon exertion. Denies: Cough Gastrointestinal: Denies: Diarrhea, Nausea, Vomiting Genitourinary: Denies: Dysuria, Hematuria Skin: Reports: Wounds - See HPI Endocrine: Denies: Heat/ Cold Intolerance, Polydipsia, Polyuria Hematologic/ Lymphatic: Denies: Easy Bruising, Easy Bleeding - Physical Exam Vital Signs Temp Pulse Resp BP 97.8 F 75 24 H 181/66 H 12/25/20 15:14 12/25/20 15:14 12/25/20 15:14 12/25/20 15:14 General: Alert, Oriented x3, Cooperative, No apparent distress HEENT: Atraumatic Oral: Moist Mucosa Neck: No JVD Lungs: Diminished Cardiovascular: Regular rate Abdomen: Soft, Non Tender, Obese, - - 4+ pitting edema that extends from his bilateral lower extremities up to his lower abdomen Extremities: Diminished Peripheral Pulses, Edema - Severe 4+ pitting edema Skin: Ulcer/ Wound - Excoriation present to right lower extremity and venous leg ulcers present to left medial and lateral lower extremity, large amounts of serous drainage that actually soaked the Chux pads underneath the legs and was dripping onto the floor Wound Measurements and Assessment WC - Nurse 1 - General Ulcer Measurement Start: 12/25/20 15:08 Freq: Status: Active Protocol: Activity Type Activity Date Activity User E-Sign Co-Sign Detail Recorded Client Recorded Date Recorded By Document 12/25/20 15:14 DL [id number] 12/25/20 15:35 DL 12/25/20 15:14 Wound Center Nurse 1 [Ulcer Assessment] #4 Right Lateral Leg -Current Size (cm) - Length 23 -Current Size (cm) - Width 23 -Current Size (cm) - Depth 0.1 -Total Square Cm 529 -Exudate Amt Large -Exudate Type Serosanguineous -Wound Margin Distinct, Outline Attached -Granulation Amt Medium (34-66%) -Granulation Quality Red -Necrosis Amt Medium (34-66%) -Necrotic Tissue Type Adherent Slough -Texture (Monica-wound Skin Appearance) Assessed, Scarring -Moisture (Monica-wound Skin Appearance Assessed, ) Weeping -Color (Monica-wound Skin Appearance) No Abnormality, Assessed -Temperature (Monica-wound Skin No Abnormality Appearance) (Pt Warm) -Tenderness on Palpation (Monica-wound No Skin Appearance) -Ulcer Cleansing soap and water -Foul Odor after Cleansing No -Anesthetic Used 4% Lidocaine Solution #3 Left Medial Leg -Current Size (cm) - Length 2 -Current Size (cm) - Width 1 -Current Size (cm) - Depth 0.1 -Total Square Cm 2 -Exudate Amt Small -Exudate Type Serosanguineous -Wound Margin Distinct, Outline Attached -Granulation Amt Medium (34-66%) -Granulation Quality Red -Necrosis Amt Medium (34-66%) -Necrotic Tissue Type Adherent Slough -Texture (Monica-wound Skin Appearance) Assessed, Scarring -Moisture (Monica-wound Skin Appearance Assessed, ) Weeping -Color (Monica-wound Skin Appearance) No Abnormality, Assessed -Temperature (Monica-wound Skin No Abnormality Appearance) (Pt Warm) -Tenderness on Palpation (Monica-wound No Skin Appearance) -Ulcer Cleansing Rinsed/ Irrigated with Saline -Foul Odor after Cleansing No -Anesthetic Used 4% Lidocaine Solution #2 Left Lateral Leg -Current Size (cm) - Length 14 -Current Size (cm) - Width 14 -Current Size (cm) - Depth 0.1 -Total Square Cm 196 -Exudate Amt Large -Exudate Type Serosanguineous -Wound Margin Distinct, Outline Attached -Granulation Amt Medium (34-66%) -Granulation Quality Red -Necrosis Amt Medium (34-66%) -Necrotic Tissue Type Adherent Slough -Texture (Monica-wound Skin Appearance) Assessed, Scarring -Moisture (Monica-wound Skin Appearance Maceration ) -Color (Monica-wound Skin Appearance) No Abnormality, Assessed -Temperature (Monica-wound Skin No Abnormality Appearance) (Pt Warm) -Tenderness on Palpation (Monica-wound No Skin Appearance) -Ulcer Cleansing soap and water -Anesthetic Used 4% Lidocaine Solution [Edema Assessment] -Right Calf (cm) 57 -Right Ankle (cm) 37.5 -Point of Measurement (cm from the 59 distal point) -Point of measurement (cm from the 40 medial instep) WC - Nurse 2 - General Ulcer CM Notes Start: 12/25/20 15:08 Freq: Status: Active Protocol: Activity Type Activity Date Activity User E-Sign Co-Sign Detail Recorded Client Recorded Date Recorded By Document 12/25/20 15:54 MW [id number] 12/25/20 16:01 MW 12/25/20 15:54 Wound Center Nurse 2 [Procedure/Treatment] #4 Right Lateral Leg -Time 15:57 -Correct Patient Yes -Correct Side, Site, Position Yes -Correct Procedure Yes -Procedure Performed No -Wound/Ulcer Outcome Healed- Epithelialized #3 Left Medial Leg -Time 15:57 -Correct Patient Yes -Correct Side, Site, Position Yes -Correct Procedure Yes -Procedure Performed Yes -Type of Procedure Debridement -Clinical Debridement Subcutaneous -Tissue Removed Subcutaneous -Post Debridement (cm) - Length 2.5 -Post Debridement (cm) - Width 1.0 -Post Debridement (cm) - Depth 0.1 -Total Square (Post) (cm) 2.50 -Area of Debridement (cm) - Length 2.5 -Area of Debridement (cm) - Width 1.0 -Total Square (Area) (cm) 2.50 -Tunneling No -Undermining/Tunneling No -Circular Undermining No -Wound/Ulcer Outcome Not Healed -Ulcer Cleansing Rinsed/ Irrigated with Saline -Foul Odor after Cleansing No -Bioengineered Tissue No -Bleeding Controlled with Pressure -Offloading No -Debridement - Subq, 1st 20sq cm Yes #2 Left Lateral Leg -Time 15:58 -Correct Patient Yes -Correct Side, Site, Position Yes -Correct Procedure Yes -Procedure Performed Yes -Type of Procedure Debridement -Clinical Debridement Subcutaneous -Tissue Removed Subcutaneous -Post Debridement (cm) - Length 3.5 -Post Debridement (cm) - Width 4.0 -Post Debridement (cm) - Depth 0.1 -Total Square (Post) (cm) 14.00 -Area of Debridement (cm) - Length 3.5 -Area of Debridement (cm) - Width 4.0 -Total Square (Area) (cm) 14.00 -Tunneling No -Undermining/Tunneling No -Circular Undermining No -Wound/Ulcer Outcome Not Healed -Ulcer Cleansing Rinsed/ Irrigated with Saline -Foul Odor after Cleansing No -Bioengineered Tissue No -Bleeding Controlled with Pressure -Offloading No -Treatment Response Procedure Tolerated Well -Debridement - Subq, 1st 20sq cm No [See Physician Procedure note for Specifics] Pain Scale: 0-10 Numeric [Pain] -Is Patient Pain Free? Yes Neurological: Neuro grossly intact Psych/Mental Status: Normal Affect, Appropriate Debridement Note Post-Debridement Measurements/Treatment WC - Nurse 2 - General Ulcer CM Notes Start: 12/25/20 15:08 Freq: Status: Active Protocol: Activity Type Activity Date Activity User E-Sign Co-Sign Detail Recorded Client Recorded Date Recorded By Document 12/25/20 15:54 MW [id number] 12/25/20 16:01 MW 12/25/20 15:54 Wound Center Nurse 2 #4 Right Lateral Leg -Time 15:57 -Correct Patient Yes -Correct Side, Site, Position Yes -Correct Procedure Yes -Procedure Performed No -Wound/Ulcer Outcome Healed- Epithelialized #3 Left Medial Leg -Time 15:57 -Correct Patient Yes -Correct Side, Site, Position Yes -Correct Procedure Yes -Procedure Performed Yes -Type of Procedure Debridement -Clinical Debridement Subcutaneous -Tissue Removed Subcutaneous -Post Debridement (cm) - Length 2.5 -Post Debridement (cm) - Width 1.0 -Post Debridement (cm) - Depth 0.1 -Total Square (Post) (cm) 2.50 -Area of Debridement (cm) - Length 2.5 -Area of Debridement (cm) - Width 1.0 -Total Square (Area) (cm) 2.50 -Tunneling No -Undermining/Tunneling No -Circular Undermining No -Wound/Ulcer Outcome Not Healed -Ulcer Cleansing Rinsed/ Irrigated with Saline -Foul Odor after Cleansing No -Bioengineered Tissue No -Bleeding Controlled with Pressure -Offloading No -Debridement - Subq, 1st 20sq cm Yes #2 Left Lateral Leg -Time 15:58 -Correct Patient Yes -Correct Side, Site, Position Yes -Correct Procedure Yes -Procedure Performed Yes -Type of Procedure Debridement -Clinical Debridement Subcutaneous -Tissue Removed Subcutaneous -Post Debridement (cm) - Length 3.5 -Post Debridement (cm) - Width 4.0 -Post Debridement (cm) - Depth 0.1 -Total Square (Post) (cm) 14.00 -Area of Debridement (cm) - Length 3.5 -Area of Debridement (cm) - Width 4.0 -Total Square (Area) (cm) 14.00 -Tunneling No -Undermining/Tunneling No -Circular Undermining No -Wound/Ulcer Outcome Not Healed -Ulcer Cleansing Rinsed/ Irrigated with Saline -Foul Odor after Cleansing No -Bioengineered Tissue No -Bleeding Controlled with Pressure -Offloading No -Treatment Response Procedure Tolerated Well -Debridement - Subq, 1st 20sq cm No Pain Scale: 0-10 Numeric Is Patient Pain Free? Yes Wound debrided: Left venous leg ulcers Laterality: Left Type of Debridement: Excisional debridement Anesthesia Used: 5% Lidocaine Gel Depth: in the subcutaneous layer Percentage of wound debrided: 100 Instrument Used: 5mm curette Tissue Removed: Slough and devitalized tissue Severity: Fat Layer Exposed Amount of bleeding with debridement: Mild Bleeding Controlled with: Pressure Patient tolerated procedure well Assessment/Plan Assessment: Venous leg ulcer left lower extremity. Lymphedema bilateral lower legs. Acute on chronic CHF exacerbation, hypoxia Plan: The patient was seen and examined at the wound center today and was updated on the plan of care. I did recommend that the patient's brother take the patient to the emergency department given the fact that patient is having increasing shortness of breath, increase in swelling with 4+ pitting edema up to his lower abdomen, increase in copious amounts of drainage from his bilateral lower extremities, and also complains of worsening orthopnea, report was given to ER nurse. A subcutaneous debridement was performed today. The patient tolerated the procedure well. The patients wound care will consist of: Application of Aquacel silver cover with ABD and tape and Rickey wrap for compression. Hold off on cultures, blood work, and vascular at this time. He does have a history of venous insufficiency. Patient educated on the importance of diet on wound healing and instructed to increase protein and vitamin C intake. Patient verbalized understanding. Patient will follow up at wound healing center in one week or sooner if needed. This note was generated with [employer] dictation software. It may contain incorrect words, spelling, and punctuation that were not noted in checking the note before signing. 35 minutes was utilized today reviewing patient's past medical records, reviewing most recent lab work, and physically examining the patient and developing a plan of care. Office Visits / Consults: [id number] OV L4 Est [id number]: [id number] Nell subq tissue 20 sq cm/<
== END 2020-12-31 23:59 ==
LOC: WC 14:40
PROVIDERS: PCP Family Medicine; Referring Provider Family Medicine Geriatric Medicine; Visit Provider Nurse Practitioner Family
DX: I83.028 Varicose veins of left lower extremity with ulcer other part of lower leg (principal); L97.822 Non-pressure chronic ulcer of other part of left lower leg with fat layer exposed; I50.32 Chronic diastolic (congestive) heart failure; N18.9 Chronic kidney disease, unspecified; R09.02 Hypoxemia; E11.22 Type 2 diabetes mellitus with diabetic chronic kidney disease; I89.0 Lymphedema, not elsewhere classified; E66.01 Morbid (severe) obesity due to excess calories; I27.21 Secondary pulmonary arterial hypertension; G47.33 Obstructive sleep apnea (adult) (pediatric); I13.0 Hypertensive heart and chronic kidney disease with heart failure and stage 1 through stage 4 chronic kidney disease, or unspecified chronic kidney disease; Z68.42 Body mass index [BMI] 45.0-49.9, adult; E78.5 Hyperlipidemia, unspecified; J44.9 Chronic obstructive pulmonary disease, unspecified; N18.30 Chronic kidney disease, stage 3 unspecified; Z79.4 Long term (current) use of insulin; Z79.82 Long term (current) use of aspirin; Z82.49 Family history of ischemic heart disease and other diseases of the circulatory system; Z83.3 Family history of diabetes mellitus; Z87.891 Personal history of nicotine dependence; Z88.0 Allergy status to penicillin
CPT/HCPCS: 11042; 99213; G0463

== ENCOUNTER 2020-12-25 16:27 | Inpatient (IN) | payer MEDICARE, OTHER, SELFPAY ==
[2020-12-25] VITALS (11 sets, daily range): BP systolic 131–172; BP diastolic 51–83; PULSE 69–79; RESP 17–23; TEMP 36.3–36.5; O2SAT 89–98; BMI 49.8; BMI 48.7; BMI 48.8
[2020-12-25] MEDS: Ipratropium/Albuterol Sulfate 3 ML AMPUL.NEB INHALATION ×2 (17:00→23:03)
--- NOTE | 2020-12-25 17:14 | EKG12_ITS ---
Test Reason : SOB Blood Pressure : / mmHG Vent. Rate : 071 BPM Atrial Rate : 071 BPM P-R Int : 140 ms QRS Dur : 126 ms QT Int : 422 ms P-R-T Axes : 021 -66 033 degrees QTc Int : 458 ms Normal sinus rhythm Left axis deviation Right bundle branch block Abnormal ECG Confirmed by ALIA GARCIA, SPRING ([id number]), senior technical editor JOSEPH ZELAYA ([id number]) on 12/29/2020 1:25:38 PM Referred By: МАРИНА Confirmed By:LORENZO ROJO MD
--- NOTE | 2020-12-25 17:17 | ED.VIS.GEN ---
History of Present Illness Chief Complaint: Shortness of Breath Informant: Patient Onset: Today Context: Gradual Onset Timing: Continuous Narrative: This is a 70-year-old white male who presents from the wound healing center for complaints of shortness of breath. Patient was recently discharged from the TCU 11/07/2020 through 12/17/2020 with debility, hypoxia, and acute on chronic CHF. The patient states that since being discharged from the hospital his shortness of breath has significantly worsened and that his swelling in his lower extremities have worsened as well. He notes increased drainage from his bilateral lower extremities. He also states now that the swelling is up to his lower abdomen. He admits to orthopnea which is chronic and unchanged. He has worsening RODRIGUEZ. Denies chest pain. Has a chornic cough in the morning which is unchanged. Patient does not feel like he has been making as much urine as he should be. He does not think he has gained weight since his discharge. he denies any other acute concerns at this time. Wears around 2 L oxygen nasal cannula at baseline. He notes he has been having a hard time using it because of nasal congestion over the past few days. He was placed on a Ventimask in the ER and states he had improvement of his symptoms since he is not having to breathe through his nose. He does wound care for chronic nonhealing lower extremity venous stasis ulcers. Past Medical History - Allergies and Home Meds Allergies/Adverse Reactions: Allergies ARB-Angiotensin Receptor Antagonist Allergy (Verified 12/25/20 16:49) WORSENS RENAL FUNCTION WORSENS RENAL FUNCTION amoxicillin Adverse Reaction (Verified 12/25/20 16:49) Upset Stomach Past Medical History: - - CHF with preserved ejection fraction, hypoxia, anemia, CKD, COPD, diabetes, and morbid obesity Surgical History: cataract, - - AVF left radiocephalic, nasal cyst removal. Smoking Status: Former smoker - Family History Sibling Family History: Family History (Last Reviewed 10/09/20 @ 15:[address] Destin Cain DO) Other Diabetes Heart disease Hypertension Family History: Reports: Heart Disease Paternal Family History: Family History (Last Reviewed 10/09/20 @ 15:[address] Destin Cain DO) Other Diabetes Heart disease Hypertension Family History: Reports: Cancer - Other with a history of possibly lymphoma., Diabetes Maternal Family History: Family History (Last Reviewed 10/09/20 @ 15:[address] Destin Cain, DO) Other Diabetes Heart disease Hypertension Family History: Reports: Diabetes, Heart Disease, Hypertension Review of Systems General: Denies: Chills, Fever, Sweats Eyes: Denies: Visual changes - bilaterally, Diplopia ENT: Denies: Rhinorrhea, Sore throat Cardiovascular: Denies: Chest pain, Palpitations Respiratory: Reports: Dyspnea, Cough, Dyspnea on exertion, Orthopnea Gastrointestinal: Denies: Abdominal pain, Nausea, Vomiting, Diarrhea, Melena, Hematochezia Genitourinary: Denies: Dysuria, Hematuria, Frequency Musculoskeletal: Reports: Swelling - Lower extremity. Denies: Back pain, Extremity Pain Skin: Reports: Wounds - Chronic venous stasis wounds of the lower extremities. Denies: Rash Neurological: Denies: Headache, Weakness, Numbness Physical Exam Vital Signs/Narrative: Vital Signs Temp Pulse Resp BP Pulse Ox 12/25/20 16:43 97.7 F L 74 22 H 167/65 H 93 Inital Vital Signs reviewed: Yes General: Well nourished, Well developed, Obese, No Acute Distress Head: Normocephalic, Atraumatic Eyes: Perrl, EOMI ENT: Moist mucous membranes, No rhinorrhea Neck: Supple, Nontender, No JVD Cardiovascular: Regular rate, Regular rhythm, No murmurs Respiratory: CTA bilaterally, Chest nontender, Wheezing - end expiratory, Diminished - Left base, right lower and middle lung field, - - No crackles appreciated Abdomen: Soft, Nontender, Normal bowel sounds Back: Nontender, Normal Inspection Extremities: Nontender, Edema - Pitting edema bilateral lower extremities up to the abdomen, just under the level of the umbilicus Skin: Normal color, No rash Neurological: Alert, Oriented x3, Cranial nerves II-XII grossly intact, Normal Strength, Normal Sensation Psychological: Normal affect, Normal Mood Diagnostic/Tx/Re-eval Chest X-Ray - ED: 1 View, Read by ED Physician, Read by Radiologist, Right Effusion Clinical Impression(s) from Imaging Studies Chest X-Ray 12/25/20 17:45 IMPRESSION: Worsening of atelectasis or infiltrate and pleural effusion in the lower right hemithorax. Electronically Signed: Denis Mackenzie MD at 18:16 EDT , Service support , Laboratory Data 12/25/20 12/25/20 12/25/20 16:58 16:58 16:58 WBC 6.6 RBC 3.30 L Hgb 10.4 L Hct 34.6 L MCV 104.8 H MCH 31.5 MCHC 30.1 L RDW Std Deviation 68.7 H RDW Coeff of Gina 17.8 H Plt Count 123 L MPV 11.4 Immature Gran % (Auto) 0.500 Neut % (Auto) 87.2 H Lymph % (Auto) 3.6 L [place] % (Auto) 7.0 Eos % (Auto) 1.5 Baso % (Auto) 0.2 Absolute Neuts (auto) 5.8 Absolute Lymphs (auto) 0.24 L Nucleated RBC % 0 Differential Comment SCANNED Hypochromasia 1+ Anisocytosis 1+ Macrocytosis 1+ Ovalocytes 1+ Acanthocytes (Spur) 1+ Sodium 139 Potassium 5.3 H Chloride 105 Carbon Dioxide 28.0 Anion Gap 6 BUN 89 H Creatinine 3.04 H Estim Creat Clear Calc 22.68 Est GFR (MDRD) Af Amer 26 L Est GFR (MDRD) Non-Af 22 L BUN/Creatinine Ratio 29.3 H Glucose 110 H Calcium 8.7 Troponin I < 0.015 B-Natriuretic Peptide 565.4 H - Rhythm Strip Rhythm Strip: Sinus Rhythm Rate: 71 Ectopy: None - EKG Initial EKG Interpretation: Sinus Rhythm, - - Sinus rhythm at a rate of 71 Left axis Right bundle branch block Normal intervals Normal ST segments - Medical Decision Making Patient evaluated for worsening shortness of breath. He is requiring a Venturi mask in the ER. Patient wears 3 L at baseline. Patient has anasarca up to his umbilicus. Patient has decreased breath sounds especially in the right midlung and right base. On x-ray he has worsening effusion. He has questionable atelectasis versus infiltrate as well. Patient does not have any new cough, fever or leukocytosis I do not think this is an infiltrate. His proBNP is also elevated. I believe that patient is fluid overloaded and having an acute exacerbation of heart failure. He is given 40 mg of IV Lasix and admitted to the hospital service. Patient is agreeable this plan of care. He is stable for PCU at time of disposition. ED Disposition - Plan for ED Patient: Disposition: Acute Care Hospital [facility] [place] Diagnosis: Acute on chronic diastolic congestive heart failure, Hypoxia
[2020-12-25 17:39] LABS: Absolute Lymphocyte Count 0.24 X10^3/uL (0.83-4.51); Absolute Neutrophil Count 5.8 X10^3/uL (2.0-7.7); Basophil# 0.01 X10^3/uL; Basophil% 0.2 % (0-1); Eosinophils% 1.5 % (0-5); Hematocrit 34.6 % (40-54); Hemoglobin 10.4 g/dL (13.0-16.5); Lymphocyte # 0.24 X10^3/ul (4.0); Lymphocyte % 3.6 % (19-41); Mean Corp Hgb Conc 30.1 g/dL (32-36); Mean Corpuscular Hgb 31.5 pg (27.0-32.0); Mean Corpuscular Volume 104.8 fL (80-94); Mean Platelet Vol. 11.4 fl (6.2-12.0); Monocyte# 0.46 X10^3/uL; NRBC Flagged by Analyzer 0 % (0-5); Neutrophil # 5.76 X10^3/uL (2.7-7.7); Neutrophil % 87.2 % (47-70); POSITIVE DIFFERENTIAL YES; POSITIVE MORPHOLOGY YES; Platelet Count 123 K/mm3 (150-450); RBC Distribution Width CV 17.8 % (11.6-14.6); RBC Distribution Width SD 68.7 fl (35.1-43.9); White Blood Count 6.6 K/mm3 (4.4-11.0)
--- NOTE | 2020-12-25 17:45 | RAD_ITS ---
STUDY: X-RAY CHEST REASON FOR EXAM: Male, 70 years old. sob TECHNIQUE: Single AP portable view of the chest. COMPARISON: 11/18/2020. FINDINGS: Worsening of pulmonary density in the lower right lung consistent with atelectasis or infiltrate with moderate pleural effusion. Possible small left pleural effusion with subsegmental atelectasis. There is mild cardiac enlargement. Normal mediastinum and gregg. Normal visualized pulmonary arteries. There is atherosclerotic calcification of the aortic arch with tortuosity. Normal visualized thoracic spine. There is degenerative osteoarthritis of the bilateral shoulders. There is no demonstrated abnormality of the visualized soft tissue structures of the upper abdomen. RAD/Chest 1 View (Portable) IMPRESSION: Worsening of atelectasis or infiltrate and pleural effusion in the lower right hemithorax. Electronically Signed: Denis Mackenize MD at 18:16 EDT , Service support ,
[2020-12-25 17:48] LABS: Anion Gap 6 (5-15); BUN 89 mg/dL (7-18); BUN/Creat Ratio 29.3 RATIO (10-20); Calcium,Total 8.7 mg/dL (8.5-10.1); Chloride 105 mmol/L (98-107); Creatinine, Serum 3.04 mg/dL (0.70-1.30); EST Glomerular Filtration Rate 22 mL/min (>60); Est Glom Filt Rate - Afr Amer 26 mL/min (>60); Estimated Creatinine Clearance 22.68 ml/min; Glucose 110 mg/dL (74-106); Potassium 5.3 mmol/L (3.5-5.1); Sodium Level 139 mmol/L (136-145)
[2020-12-25 17:50] LABS: Differential Indicated SCAN CRITERIA MET
[2020-12-25 17:58] LABS: BNP,B-Type NATRIURETIC PEPTIDE 565.4 pg/mL (0-100)
[2020-12-25 18:02] LABS: Anisocytosis 1+; Differential Comment SCANNED; Hypochromasia 1+; Macrocytosis 1+; Ovalocyte 1+
[2020-12-25 18:03] LABS: Acanthocytes 1+
[2020-12-25] MEDS: Furosemide 40 MG/4 ML Vial IV (19:10)
--- NOTE | 2020-12-25 19:10 | PCM.HP.STD ---
Problem List (1) Acute on chronic diastolic congestive heart failure Status: Acute (2) Hypoxia Status: Acute (3) Chronic respiratory failure with hypoxia Status: Chronic (4) Chronic kidney disease (CKD) Status: Chronic Qualifiers: Chronic kidney disease stage: stage 4 (severe) Qualified Code(s): N18.4 - Chronic kidney disease, stage 4 (severe) (5) Chronic obstructive pulmonary disease Status: Chronic Qualifiers: COPD type: unspecified COPD Qualified Code(s): J44.9 - Chronic obstructive pulmonary disease, unspecified (6) Allergic rhinitis Status: Chronic Qualifiers: Allergic rhinitis trigger: unspecified Allergic rhinitis seasonality: unspecified Qualified Code(s): J30.9 - Allergic rhinitis, unspecified (7) Pulmonary hypertension Status: Chronic (8) Venous stasis ulcer of left lower extremity Status: Chronic (9) Morbid obesity Status: Chronic (10) Thrombocytopenia Status: Chronic (11) Diabetes mellitus, type II Status: Chronic Qualifiers: Diabetes mellitus termination clerk insulin use: with correction use Diabetes mellitus complication status: with other specified complication Qualified Code(s): E11.69 - Type 2 diabetes mellitus with other specified complication; Z79.4 - terminal system operator (current) use of insulin (12) IMAN (obstructive sleep apnea) Status: Chronic (13) Secondary pulmonary arterial hypertension Status: Chronic (14) Right bundle branch block (RBBB) Status: Chronic (15) Essential (primary) hypertension Status: Chronic (16) Hyperlipidemia Status: Chronic Qualifiers: (17) Lymphedema of both lower extremities Status: Chronic History of Present Illness Date of Admission: 12/25/20 Chief Complaint: Dyspnea, [facility]. The patient is a 70 y/o M w/ PMHx: Chronic anemia/AOCD, Chronic Thrombocytopenia, HTN, HLD, IMAN on CPAP q HS, Diabetes mellitus type II, BL LE Chronic Lymphedema and wounds following with [facility] for recently LLE venous stasis ulcer, Chronic COPD, Former Tobacco use, Chronic Diastolic CHF, CKD stage IV following w/ [facility] ([facility] at [facility]) not on current dialysis, recently in TCU from 11/07/20-12/17/20 with worsening dyspnea, fatigue, exertional dyspnea, orthopnea and increased edema to BL LE with significant BL LE seeping, now swelling up to his mid abdomen region prompting referral from the [facility] upon evaluation on day of ED presentation to the ED for acute treatment. Patient notes having recently been congested and did not tolerate the NC in the ED therefore placed on VM to assist with oxygenation better. Patient denies any recent chest discomfort, chest pressure, lightheadedness, dizziness with his recent dyspnea. He does state that during recent discharge he was placed on 2 L nasal cannula which she has continued to require. Work-up in the ED included T 97.7, heart rate 75, BP 164/83, respiratory rate 20, initially 89% on room air with eventual transition to 96% on a Ventimask, CBC with WC 6.6, hemoglobin 10.4, platelet 123 with lymphopenia notably, BMP with potassium 5.3, BUN/creatinine 9/3.04, glucose 111, troponin less than 0.015, BNP 565.4, rapid Covid antigen negative, chest x-ray with worsening atelectasis or infiltrate and pleural effusion in the lower right hemithorax, EKG w/ SR without acute evidence of ischemia w/ chronic RBBB. In the ED patient administered Lasix 40 mg IV x 1 and Duoneb x 1. Past Medical History Past Medical History (Chronic Problems): Chronic Problems (Last Reviewed 10/09/20 @ 15:[address] Destin Cain DO) Chronic diastolic (congestive) heart failure (Chronic) Chronic kidney disease (CKD) (Chronic) Diabetes mellitus (Chronic) Body mass index 45.0-49.9, adult (Chronic) Chronic kidney disease, stage 3 (Chronic) Chronic obstructive pulmonary disease (Chronic) Allergic rhinitis (Chronic) Gout (Chronic) Vitamin D deficiency (Chronic) Tinea corporis (Chronic) Pulmonary hypertension (Chronic) Venous stasis ulcer of left lower extremity (Chronic) Chronic respiratory failure with hypoxia (Chronic) Morbid obesity (Chronic) Anemia (Chronic) Renal failure (Chronic) Thrombocytopenia (Chronic) Diabetes mellitus, type II (Chronic) IMAN (obstructive sleep apnea) (Chronic) Chronic diastolic (congestive) heart failure (Chronic) Secondary pulmonary arterial hypertension (Chronic) Right bundle branch block (RBBB) (Chronic) Essential (primary) hypertension (Chronic) Hyperlipidemia (Chronic) Lymphedema of both lower extremities (Chronic) Medical History: Medical History (Last Reviewed 10/09/20 @ 15:[address] Destin Cain DO) Chronic diastolic (congestive) heart failure (Chronic) I50.32 Secondary pulmonary arterial hypertension (Chronic) I27.21 Right bundle branch block (RBBB) (Chronic) I45.10 Essential (primary) hypertension (Chronic) I10 Hyperlipidemia (Chronic) E78.5 Lymphedema of both lower extremities (Chronic) I89.0 BMI 33.0-33.9,adult Z68.33 Non-pressure ulcer of right lower extremity with fat layer exposed L97.912 Traumatic open wound of right lower leg with delayed healing S81.801D Type 2 diabetes mellitus E11.9 DEVAN (acute kidney injury) (Resolved) N17.9 Gastrointestinal bleed K92.2 Syncope and collapse R55 CKD (chronic kidney disease), stage III N18.3 Traumatic open wound of right lower leg (Inactive) S81.801A Wound of right leg (Inactive) S81.801A Allergies ARB-Angiotensin Receptor Antagonist Allergy (Verified 12/25/20 16:49) WORSENS RENAL FUNCTION WORSENS RENAL FUNCTION amoxicillin Adverse Reaction (Verified 12/25/20 16:49) Upset Stomach Home Medications: Ambulatory Orders Medication Instructions Recorded Aspirin [Aspirin, Baby] 81 mg PO DAILY 03/03/15 Fluticasone 0.05% [Flonase Nasal 2 spray NASAL DAILY 12/31/15 Siren] Allopurinol [Zyloprim] 100 mg PO DAILYCM 03/03/19 Carvedilol [Coreg] 50 mg PO BID 03/03/19 Cholecalciferol (VIT D3) [Vitamin 1,000 unit PO SUWESA 03/03/19 D3] Clonidine HCl [Catapres] 0.3 mg PO BID 03/03/19 Isosorbide Mononitrate [Isosorbide 120 mg PO DAILY 03/03/19 Mononitrate ER] Umeclidinium Brm/Vilanterol Tr 1 puff IH DAILY 03/03/19 [Anoro Ellipta 62.5-25 Mcg INH] hydrALAZINE [Apresoline] 25 mg PO TID 03/03/19 atorvastatin 80 mg tablet 80 mg PO QHS #90 tab 04/04/19 Albuterol Inhaler [Ventolin Hfa] 2 puff INHALATION Q6H PRN PRN 04/27/19 Nitroglycerin (INPATIENT USE) 0.4 mg SUBLINGUAL Q5M PRN 09/19/20 [Nitrostat] Insulin Glargine [Lantus SoloStar 30 units SC BREAKFAST #1 pen 11/11/20 Pen] Insulin Glargine [Lantus SoloStar 30 units SC DINNER #1 pen 11/11/20 Pen] Insulin Lispro [Humalog KwikPen] 5 unit SC BREAKFAST insuln.pen 11/11/20 Insulin Lispro [Humalog KwikPen] 5 unit SC DINNER insuln.pen 11/11/20 Insulin Lispro [Humalog KwikPen] 5 unit SC LUNCH insuln.pen 11/11/20 Nystatin Powder [Mycostatin Powder] 1 applic TOPICAL TID bottle 11/11/20 Acetaminophen [Tylenol] 1,000 mg PO Q6H PRN PRN tab 12/10/20 Furosemide [Lasix] 40 mg PO DAILY #30 tab 12/10/20 Menthol/Lanolin/Calamine/Znox 1 applic TOPICAL BID tube 12/10/20 [Calmoseptine Ointment] Ondansetron [Zofran] 8 mg PO Q8H PRN PRN #90 tab 12/10/20 Polyethylene Glycol 3350 [Miralax] 17 gm PO DAILY #30 packet 12/10/20 Senna/Docusate Sodium [Senokot-S] 2 tab PO BID #120 tab 12/10/20 Tamsulosin HCl [Flomax] 0.4 mg PO DAILY@1730 #30 cap 12/10/20 Surgical History: Surgical History (Last Reviewed 10/09/20 @ 15:[address] Destin Cain DO) A-V fistula Onset Date: 05/09/20 I77.0 LUE History of cataract surgery Z98.49 Surgical History: cataract, - - AVF left radiocephalic, nasal cyst removal. Psychiatric History: No pertinent psych hx Lives: Alone - Patient quit cigarette tobacco usage approximately 10 years prior with prior to this 1 pack/day since he had been a teenager. Smoking Status: Former smoker Tobacco Use: Non-smoker Alcohol: Rare Drugs: None - *Family History Sibling Family History: Family History (Last Reviewed 10/09/20 @ 15:[address] Destin Cain DO) Other Diabetes Heart disease Hypertension History Items: Heart Disease Paternal Family History: Family History (Last Reviewed 10/09/20 @ 15:[address] Destin Cain DO) Other Diabetes Heart disease Hypertension History Items: Cancer - Other with a history of possibly lymphoma., Diabetes Maternal Family History: Family History (Last Reviewed 10/09/20 @ 15:[address] Destin Cain DO) Other Diabetes Heart disease Hypertension History Items: Diabetes, Heart Disease, Hypertension Review of Systems Constitutional: Reports: Malaise, Weakness, Weight Change, Fatigue. Denies: Anorexia, Chills, Fever HEENT: Reports: Nasal Congestion. Denies: Head Aches, Sinus Congestion, Sinus Drainage Cardiovascular: Reports: Edema, Orthopnea. Denies: Chest Pain, Chest Pressure, Chest Tightness, Light Headedness, Palpitations, Syncope Respiratory: Reports: Cough, Shortness of Breath, Shortness of breath upon exertion. Denies: Shortness of breath at rest, Sputum production, Wheezing Gastrointestinal: Denies: Abdominal Pain, Nausea, Vomiting Genitourinary: Denies: Dysuria Musculoskeletal: Reports: Joint Pain. Denies: Joint Tenderness Skin: Denies: Rash, Wounds Neurological: Denies: Numbness, Tingling, Focal weakness Psychiatric: Denies: Anxiety, Depression, Homicidal Ideations, Suicidal Ideations Hematologic/ Lymphatic: Reports: Anemia, Easy Bruising, Easy Bleeding VTE Information - Inpt Only VTE Present on Admission: No VTE Mechan Device Prophylaxis: SCD's VTE Pharm Prophylaxis ordered?: Yes Subjective: Patient seated upright in ED bed, fatigued appearing, VM in place, notes current feeling less short of breath with oxygen. Objective: Physical Examination: General: awake, alert, oriented x 3 and cooperative, seated upright in the ED bed in no apparent distress, no respiratory distress, on VM secondary to congestion. Skin: normal color, turgor, no icterus, cyanosis except bilateral lower extremity stasis disease hx, current dressings placed by Wound Care, recent aquacel silver, ABG, kerlex with RICKEY with LLE chronic stasis wounds. HEENT: AT/NC, EOMI, PERRLA, MMM, no obvious carotid bruit, unable to discern JVD secondary to thickened neck. Lungs: Diminished breath sounds, greater bases, distant breath sounds given habitus, no obvious evidence of distress, mild distant rales bases, no obvious ronchi or wheezing. Heart: Regular rate and rhythm; no gallop, rub audible. Abdomen: soft, morbidly obese, NTTP, ND, normal BS, unable to discern HSM secondary to habitus, notable anasarca to mid abd. Extremities: no cyanosis or clubbing, see skin, significant bilateral lower extremity acute on chronic lymphedema with >4+ pitting edema pedal to mid abd as noted. Neurological: patient awake, alert, oriented as noted; cognitive function intact; pupils equally reactive to light and accomodation; cranial nerves II-XII grossly normal, moving all 4 extremities, no focal deficits, strength severely global decrease secondary to acute presentation complaints. Psychiatric: affect appears fatigued otherwise normal, no acute evidence of depressive or anxiety feelings. - Physical Exam Vitals/I&O's: Vital Signs Temp Pulse Resp BP Pulse Ox 97.7 F L 70 17 172/56 H 96 12/25/20 16:43 12/25/20 18:47 12/25/20 18:47 12/25/20 18:47 12/25/20 18:47 Oxygen Flow Rate (L/min) 4 Oxygen Delivery Method Venturi Mask Weight: 344 lb 12.847 oz Body Mass Index (BMI) 48.7 Finger Stick Blood Glucose 131 Microbiology Past 72 Hours 12/25/20 17:35 Mucosa - Nose SARS-CoV-2 Antigen (Rapid) - Final Laboratory Results 12/25/20 16:58: WBC 6.6, RBC 3.30 L, Hgb 10.4 L, Hct 34.6 L, MCV 104.8 H, MCH 31.5, MCHC 30.1 L, RDW Std Deviation 68.7 H, RDW Coeff of Gina 17.8 H, Plt Count 123 L, MPV 11.4, Immature Gran % (Auto) 0.500, Neut % (Auto) 87.2 H, Lymph % (Auto) 3.6 L, [place] % (Auto) 7.0, Eos % (Auto) 1.5, Baso % (Auto) 0.2, Absolute Neuts (auto) 5.8, Absolute Lymphs (auto) 0.24 L, Nucleated RBC % 0, Differential Comment SCANNED, Hypochromasia 1+, Anisocytosis 1+, Macrocytosis 1+, Ovalocytes 1+, Acanthocytes (Spur) 1+ 12/25/20 16:58: Sodium 139, Potassium 5.3 H, Chloride 105, Carbon Dioxide 28.0, Anion Gap 6, BUN 89 H, Creatinine 3.04 H, Estim Creat Clear Calc 22.68, Est GFR (MDRD) Af Amer 26 L, Est GFR (MDRD) Non-Af 22 L, BUN/Creatinine Ratio 29.3 H, Glucose 110 H, Calcium 8.7, Troponin I < 0.015 12/25/20 16:58: B-Natriuretic Peptide 565.4 H Assessment/Plan All Active Problems (Last Reviewed 10/09/20 @ 15:[address] Destin Cain, DO) (HFpEF) heart failure with preserved ejection fraction (Acute) Debility (Acute) Hypoxia (Acute) Acute on chronic diastolic congestive heart failure (Acute) DEVAN (acute kidney injury) (Resolved) The patient is a 70 y/o M w/ PMHx: Chronic anemia/AOCD, Chronic Thrombocytopenia, HTN, HLD, IMAN on CPAP q HS, Diabetes mellitus type II, BL LE Chronic Lymphedema and wounds following with [facility] for recently LLE venous stasis ulcer, Chronic COPD, Former Tobacco use, Chronic Diastolic CHF, CKD stage IV following w/ [facility] not on current dialysis, recently in TCU from 11/07/20-12/17/20 with worsening dyspnea, fatigue, exertional dyspnea, orthopnea and increased edema to BL LE with significant BL LE seeping, now swelling up to his mid abdomen region prompting referral from the [facility] upon evaluation on day of ED presentation to the ED for acute treatment. 1. Acute Decompensated Diastolic CHF with associated Acute Hypoxia on recent chronic hypoxic respiratory failure (2 L nasal cannula required since prior discharge): CXR obtained in the ED w/ concern for congestion. Patient administered IV lasix in the ED, will admit to PCU, maintain on cardiac telemetry obtain cardiac enzyme series, obtain serial EKGs, continue IV lasix diuresis with 60 mg IV every 8 hours however depending on response given significant renal dysfunction may necessitate drip although previously had benefited from 80 IV twice daily during prior admission, monitor I/Os, maintain on intake restriction, continue medical therapy, obtain TSH and magnesium level. Most recent ECHO noted 10/09/2020 with grossly normal LV size, wall motion and systolic function, EF 65%, mildly enlarged LA and RA, trivial MVI, mild TVI, RVSP 63 mmHg consistent with pulmonary hypertension, evidence of diastolic dysfunction therefore will not repeat. PRN morphine to decrease afterload, continue oxygen supplementation, if necessary will position w/ upright position with legs off bed to decrease preload. May consider cardiology involvement if clinically not improving or concerns arise. 2. Acute on chronic lymphedema complicated by chronic lower extremity wounds, left lower extremity stasis ulcers: Patient with on day of ED presentation subcutaneous debridement with Aquacel silver application, ABD and Rickey wrap for compression placed. We will continue with wound RN consultation, elevation, Rickey wraps and dressings per previous recommendations. IV diuresis as noted #1. 3. CKD stage IV: Admission BUN/creatinine 89/3.04, AVF in place as patient has had intermittent increases, following with [facility] nephrology and while inpatient has seen Dr. Gutierrez. Patient is not receiving any dialysis at this time. From review of creatinine patient has trended down again to prior baseline primarily 3-3.5 most recently. 4. Chronic Thrombocytopenia: Admission Plts 123, similar to prior, unclear exact etiology, following outpatient with hematology, continue to closely trend with usage heparin. 5. Diabetes mellitus type II: Hold oral home regimen, continue home insulin regimen, ADA diet, accu checks w/ ISS. 6. Hypertension: Continue home regimen including Coreg, clonidine, isosorbide, IV Lasix as noted above, PRN hydralazine. 7. Hyperlipidemia: Continue home statin regimen. 8. Chronic anemia/AOCD/Fe Deficiency: Admission Hgb 10.4, baseline appears similar, continue to trend, has required Fe infusions outpatient. 9. Chronic COPD with chronic hypoxic respiratory failure: Will maintain on oxygen with wean as tolerated to room air however patient has since prior admission required 2 L nasal cannula, continue ATC duonebs, PRN albuterol, HOB, IS parameters. 10. Gout: We will continue patient home allopurinol regimen. 11. Former tobacco use: Encourage continued tobacco cessation. 12. IMAN: Continue CPAP q HS. 13. DVT prophylaxis: SCDs, heparin. 14. CODE status: Patient JIL is his Sister Shalini and living will is currently in place. During previous admissions patient had been full CODE STATUS however patient upon current presentation does note interest in DNR CCA, no intubation. To be thorough, discussed CODE status at length including difference between FULL code, DNR-CCA and DNR-CC status. Following discussions about the differences in these status, patient confirms that he has transitioned and requests DNR-CCA, no intubation status. Advanced Care Planning Face to Face Time: 16 minutes. Inpatient E&M: 77435 Init Hosp L3 Procedures: 50768 Advncd Care Plan 30 Min
[2020-12-25 22:41] LABS: Bedside Glucose 60 mg/dL (70-110)
[2020-12-25] MEDS: Carvedilol 25 MG Tablet 50 MG PO (22:42)
[2020-12-25] MEDS: cloNIDine HCl 0.1 MG Tablet 0.3 MG PO (22:42)
[2020-12-25] MEDS: hydrALAZINE 25 MG Tablet PO (22:42)
[2020-12-25] MEDS: Atorvastatin Calcium 80 MG Tablet PO (22:43)
[2020-12-25] MEDS: Heparin Injection (Vial) 5,000 UNIT/ML VIAL 5000 UNIT SC (22:43)
[2020-12-25] MEDS: Senna/Docusate Sodium 1 Tablet 2 TABLET PO (22:43)
[2020-12-25] MEDS: Menthol/Lanolin/Calamine/Znox 113 GM Tube 1 APPLIC TOPICAL (22:46)
[2020-12-25] MEDS: Furosemide 100 MG/10 ML Vial 60 MG IV (22:47)
[2020-12-25] MEDS: Nystatin Powder 15gm Bottle 1 APPLIC TOPICAL (22:47)
[2020-12-25] MEDS: 0.9% Saline Lock 10 ML Syringe IV (22:50)
[2020-12-25 23:21] LABS: Bedside Glucose 103 mg/dL (70-110)
[2020-12-26] VITALS (22 sets, daily range): BP systolic 126–154; BP diastolic 60–72; PULSE 56–74; RESP 12–20; TEMP 21.1–36.6; O2SAT 92–98
[2020-12-26] MEDS: 0.9% Saline Lock 10 ML Syringe IV ×3 (01:16→22:31)
[2020-12-26 05:07] LABS: Absolute Lymphocyte Count 0.34 X10^3/uL (0.83-4.51); Absolute Neutrophil Count 5.1 X10^3/uL (2.0-7.7); Basophil# 0.02 X10^3/uL; Basophil% 0.3 % (0-1); Eosinophil# 0.14 X10^3/uL; Eosinophils% 2.3 % (0-5); Hematocrit 31.8 % (40-54); Hemoglobin 9.5 g/dL (13.0-16.5); Lymphocyte # 0.34 X10^3/ul (4.0); Lymphocyte % 5.5 % (19-41); Mean Corp Hgb Conc 29.9 g/dL (32-36); Mean Corpuscular Hgb 31.5 pg (27.0-32.0); Mean Corpuscular Volume 105.3 fL (80-94); Mean Platelet Vol. 10.6 fl (6.2-12.0); Monocyte# 0.55 X10^3/uL; NRBC Flagged by Analyzer 0 % (0-5); Neutrophil # 5.06 X10^3/uL (2.7-7.7); Neutrophil % 82.4 % (47-70); POSITIVE COUNT YES; POSITIVE DIFFERENTIAL YES; POSITIVE MORPHOLOGY YES; Platelet Count 98 K/mm3 (150-450); RBC Distribution Width CV 17.5 % (11.6-14.6); Red Blood Count 3.02 M/mm3 (4.6-6.2); White Blood Count 6.1 K/mm3 (4.4-11.0)
[2020-12-26 05:08] LABS: Differential Indicated SCAN CRITERIA MET
[2020-12-26 05:40] LABS: ALB/GLOB Ratio 0.9 RATIO (0.9-2.4); AST(SGOT) 13 U/L (15-37); Alanine Aminotransfer ALT/SGPT 18 U/L (16-61); Alkaline Phosphatase 59 U/L (45-117); Anion Gap 8 (5-15); BUN 87 mg/dL (7-18); Calcium,Total 8.3 mg/dL (8.5-10.1); Chloride 108 mmol/L (98-107); Cholesterol 82 mg/dL (200); Creatinine, Serum 2.81 mg/dL (0.70-1.30); EST Glomerular Filtration Rate 24 mL/min (>60); Est Glom Filt Rate - Afr Amer 29 mL/min (>60); Estimated Creatinine Clearance 50.95 ml/min; Globulin 3.4 g/dL (2.2-4.2); Glucose 75 mg/dL (74-106); High Density Lipoprotein 39 mg/dL; Potassium 4.8 mmol/L (3.5-5.1); Protein, Total 6.4 g/dL (6.4-8.2); Sodium Level 141 mmol/L (136-145); T4 Free Direct 1.48 ng/dL (0.76-1.46); Thyroid Stim Hormone (TSH) 1.44 uIU/mL (0.358-3.74); Triglycerides 65 mg/dL; Very Low Density Lipoprotein 13 mg/dL (5-40)
[2020-12-26] MEDS: hydrALAZINE 25 MG Tablet PO ×3 (06:01→22:29)
[2020-12-26] MEDS: Nystatin Powder 15gm Bottle 1 APPLIC TOPICAL ×3 (06:02→22:31)
[2020-12-26] MEDS: Furosemide 100 MG/10 ML Vial 60 MG IV ×3 (06:02→22:30)
[2020-12-26] MEDS: Ipratropium/Albuterol Sulfate 3 ML AMPUL.NEB INHALATION ×3 (07:21→20:33)
[2020-12-26] MEDS: Allopurinol 100 MG Tablet PO (09:22)
[2020-12-26] MEDS: cloNIDine HCl 0.1 MG Tablet 0.3 MG PO ×2 (09:22→22:30)
[2020-12-26] MEDS: Senna/Docusate Sodium 1 Tablet 2 TABLET PO ×2 (09:22→22:29)
[2020-12-26] MEDS: Aspirin 81 MG TAB.CHEW PO (09:22)
[2020-12-26] MEDS: Heparin Injection (Vial) 5,000 UNIT/ML VIAL 5000 UNIT SC ×2 (09:22→22:30)
[2020-12-26] MEDS: Carvedilol 25 MG Tablet 50 MG PO ×2 (09:22→22:29)
[2020-12-26] MEDS: Fluticasone 0.05% 1 SPRAY NASAL.SRY 2 SPRAY NASAL (09:24)
[2020-12-26] MEDS: Menthol/Lanolin/Calamine/Znox 113 GM Tube 1 APPLIC TOPICAL (09:24)
[2020-12-26] MEDS: Polyethylene Glycol 3350 17 GM PACKET PO (09:25)
[2020-12-26] MEDS: Glucerna Shake 120 ML LIQUID PO (09:29)
[2020-12-26 09:40] LABS: Bedside Glucose 128 mg/dL (70-110)
[2020-12-26 11:40] LABS: Bedside Glucose 123 mg/dL (70-110)
[2020-12-26] MEDS: Insulin Lispro 100 UNIT/ML INSULN.PEN SC ×2 (11:57→16:36)
--- NOTE | 2020-12-26 11:58 | PN_ITS ---
<Meghann Borges LINE PAINTING MACHINE OPERATOR - Last Filed: 12/26/20 12:10> Patient Problems: Active and Suspected Problems (Last Reviewed 10/09/20 @ 15:[address] Destin bell DO) Hypoxia (Acute) Acute on chronic diastolic congestive heart failure (Acute) Subjective: Patient seen and examined. Reports continued dyspnea. Denies cough, fever, chills. Reports recent increase in lower extremity swelling. Patient is not aware of weight gain. - Physical Exam Vitals/I&O's: Vital Signs Temp Pulse Resp BP Pulse Ox 97.4 F L 73 18 154/65 H 92 12/26/20 09:18 12/26/20 09:18 12/26/20 09:18 12/26/20 09:18 12/26/20 10:10 Oxygen Flow Rate (L/min) 6 Oxygen Delivery Method Venturi Mask Weight: 333 lb 8.95 oz Body Mass Index (BMI) 0.0 Finger Stick Blood Glucose 131 Intake and Output for Last 24 Hours 12/24/20 12/25/20 12/26/20 23:59 23:59 23:59 Intake Total 75 / 75 50 / 50 Balance 75 / 75 50 / 50 General: Alert, Oriented x3, Cooperative HEENT: Atraumatic, PERRLA, EOMI, Normocephalic Neck: Supple, No JVD, Negative Carotid Bruits Lungs: Clear to auscultation, Diminished Cardiovascular: Regular rate, No murmurs Abdomen: Bowel Sounds Present, Soft, Non Tender, Non-Distended, Obese Extremities: No clubbing, No cyanosis, Capillary Refill Less than 3 Seconds, Edema - Bilateral lower extremity edema, Rickey wraps in place Skin: No rashes, No breakdown, - - Bilateral lower extremity venous stasis ulcerations Musculoskeletal: No Tenderness to Palpation of Joints or Extremities Neurological: Cranial nerves II-XII grossly intact, Neuro grossly intact Psych/Mental Status: Normal Affect, Appropriate Microbiology Past 72 Hours 12/25/20 17:35 Mucosa - Nose SARS-CoV-2 Antigen (Rapid) - Final Laboratory Results 12/25/20 16:58: WBC 6.6, RBC 3.30 L, Hgb 10.4 L, Hct 34.6 L, MCV 104.8 H, MCH 31.5, MCHC 30.1 L, RDW Std Deviation 68.7 H, RDW Coeff of Gina 17.8 H, Plt Count 123 L, MPV 11.4, Immature Gran % (Auto) 0.500, Neut % (Auto) 87.2 H, Lymph % (Auto) 3.6 L, Chaves % (Auto) 7.0, Eos % (Auto) 1.5, Baso % (Auto) 0.2, Absolute Neuts (auto) 5.8, Absolute Lymphs (auto) 0.24 L, Nucleated RBC % 0, Differential Comment SCANNED, Hypochromasia 1+, Anisocytosis 1+, Macrocytosis 1+, Ovalocytes 1+, Acanthocytes (Spur) 1+ 12/25/20 16:58: Sodium 139, Potassium 5.3 H, Chloride 105, Carbon Dioxide 28.0, Anion Gap 6, BUN 89 H, Creatinine 3.04 H, Estim Creat Clear Calc 22.68, Est GFR (MDRD) Af Amer 26 L, Est GFR (MDRD) Non-Af 22 L, BUN/Creatinine Ratio 29.3 H, Glucose 110 H, Calcium 8.7, Troponin I < 0.015 12/25/20 16:58: B-Natriuretic Peptide 565.4 H 12/25/20 20:58: Magnesium 3.0 H, Troponin I < 0.015 12/25/20 22:36: POC Glucose 60 L 12/25/20 23:18: POC Glucose 103 12/26/20 01:17: Troponin I 0.018 12/26/20 04:48: WBC 6.1, RBC 3.02 L, Hgb 9.5 L, Hct 31.8 L, MCV 105.3 H, MCH 31.5, MCHC 29.9 L, RDW Std Deviation 68.0 H, RDW Coeff of Gina 17.5 H, Plt Count 98 L, MPV 10.6, Immature Gran % (Auto) 0.500, Neut % (Auto) 82.4 H, Lymph % (Auto) 5.5 L, Chaves % (Auto) 9.0, Eos % (Auto) 2.3, Baso % (Auto) 0.3, Absolute Neuts (auto) 5.1, Absolute Lymphs (auto) 0.34 L, Nucleated RBC % 0 12/26/20 04:48: Sodium 141, Potassium 4.8, Chloride 108 H, Carbon Dioxide 25.0, Anion Gap 8, BUN 87 H, Creatinine 2.81 H, Estim Creat Clear Calc 50.95, Est GFR (MDRD) Af Amer 29 L, Est GFR (MDRD) Non-Af 24 L, BUN/Creatinine Ratio 31.0 H, Glucose 75, Calcium 8.3 L, Total Bilirubin 1.00, AST 13 L, ALT 18, Alkaline Phosphatase 59, Total Protein 6.4, Albumin 3.0 L, Globulin 3.4, Albumin/Globulin Ratio 0.9, Triglycerides 65, Cholesterol 82, LDL Cholesterol 30, VLDL Cholesterol 13, HDL Cholesterol 39 L, TSH 1.44, Free T4 1.48 H 12/26/20 04:48: Troponin I 0.016 12/26/20 09:10: POC Glucose 128 H 12/26/20 11:33: POC Glucose 123 H Current Medications Acetaminophen (Acetaminophen 325 Mg Tablet) 650 mg PO Q6H PRN PRN PRN Reason: Pain Score 1-10/Temp > 100.7 F Al Hydroxide/Mg Hydroxide (Mag Hydrox/Al Hydrox/Simeth 30 Ml Udc) 30 ml PO Q6H PRN PRN PRN Reason: Gastric Burning Albuterol Sulfate (Albuterol 2.5 Mg/3 Ml Vial.Neb.) 2.5 mg INHALATION Q2H PRN PRN PRN Reason: Dyspnea, wheezing Albuterol/Ipratropium (Ipratropium/Albuterol Sulfate 3 Ml Ampul.Neb) 3 ml INHALATION Q6HWA.RT [facility] Last Admin: 12/26/20 07:21 Dose: 3 ml Documented by: Allopurinol ([facility] 100 Mg Tablet) [facility] Last Admin: 12/26/20 09:22 Dose: 100 mg Documented by: Aspirin (Aspirin 81 Mg Tab.Chew) [facility] Last Admin: 12/26/20 09:22 Dose: 81 mg Documented by: Atorvastatin Calcium (Atorvastatin Calcium 80 Mg Tablet) 80 mg PO QHS [facility] Last Admin: 12/25/20 22:43 Dose: 80 mg Documented by: Calamine/Phenol (Menthol/Lanolin/Calamine/Znox 113 Gm Tube) 1 applic TOPICAL BID [facility]; Protocol Last Admin: 12/26/20 09:24 Dose: 1 applic Documented by: Carvedilol (Carvedilol 25 Mg Tablet) 50 mg PO BID [facility] Last Admin: 12/26/20 09:22 Dose: 50 mg Documented by: Clonidine (Clonidine Hcl 0.1 Mg Tablet) 0.3 mg PO BID [facility] Last Admin: 12/26/20 09:22 Dose: 0.3 mg Documented by: Fluticasone Propionate (Fluticasone 0.05% 1 [place] Nasal.Sry) 2 spray NASAL DAILY [facility] Last Admin: 12/26/20 09:24 Dose: 2 spray Documented by: Furosemide (Furosemide 100 Mg/10 Ml Vial) 60 mg IV Q8 [facility] Last Admin: 12/26/20 06:02 Dose: 60 mg Documented by: Guaifenesin (Guaifenesin 10 Ml Udc (200mg/10ml)) 20 ml PO Q4H PRN PRN PRN Reason: COUGH Heparin Sodium (Porcine) (Heparin Injection (Vial) 5,000 Unit/Ml Vial) 5,000 unit SC Q12 [facility] Last Admin: 12/26/20 09:22 Dose: 5,000 unit Documented by: Hydralazine HCl (Hydralazine 25 Mg Tablet) 25 mg PO TID [facility] Last Admin: 12/26/20 06:01 Dose: 25 mg Documented by: Hydralazine HCl (Hydralazine 20 Mg/Ml Vial) 10 mg IV Q4H PRN PRN PRN Reason: SBP > 160 Insulin Glargine (Insulin Glargine 100 Units/Ml Pen) 30 units SC DINNER [facility] Insulin Glargine (Insulin Glargine 100 Units/Ml Pen) 30 units SC BREAKFAST [facility] Last Admin: 12/26/20 09:24 Dose: 30 u Documented by: Insulin Human Lispro (Insulin Lispro 100 Unit/Ml Insuln.Pen) 5 unit SC LUNCH [facility] Last Admin: 12/26/20 11:57 Dose: 5 u Documented by: Insulin Human Lispro (Insulin Lispro 100 Unit/Ml Insuln.Pen) 5 unit SC DINNER [facility] Insulin Human Lispro (Insulin Lispro 100 Unit/Ml Insuln.Pen) 5 unit SC BREAKFAST [facility] Last Admin: 12/26/20 09:20 Dose: Not Given Documented by: Insulin Human Lispro (Insulin Lispro 100 Unit/Ml Insuln.Pen) 0 unit SC ACHS [facility]; Protocol Last Admin: 12/26/20 11:54 Dose: Not Given Documented by: Isosorbide Mononitrate (Isosorbide Mononitrate 120 Mg Tablet) 120 mg PO DAILY [facility] Last Admin: 12/26/20 09:25 Dose: 120 mg Documented by: Melatonin (Melatonin 3 Mg Tablet) 3 mg PO QHS PRN PRN PRN Reason: INSOMNIA Morphine Sulfate (Morphine 2 Mg/Ml Syringe) 2 mg IV Q3H PRN PRN PRN Reason: Pain Score 6-10 Nitroglycerin (Nitroglycerin (Inpatient Use) 0.4 Mg Tab.Subl) 0.4 mg SL Q5M PRN PRN Reason: CARDIAC/CHEST PAIN Nystatin (Nystatin Powder 15gm Bottle) 1 applic TOPICAL TID [facility]; Protocol Last Admin: 12/26/20 06:02 Dose: 1 applic Documented by: Ondansetron HCl (Ondansetron 4 Mg/2 Ml Vial) 4 mg IV Q8H PRN PRN PRN Reason: NAUSEA/VOMITING Polyethylene Glycol (Polyethylene Glycol 3350 17 Gm Packet) 17 gm PO DAILY [facility] Last Admin: 12/26/20 09:25 Dose: 17 gm Documented by: Prochlorperazine Edisylate (Prochlorperazine 10 Mg/2 Ml Vial) 5 mg IV Q4H PRN PRN PRN Reason: Breakthrough Nausea/Vomiting Senna/Docusate Sodium (Senna/Docusate Sodium 1 Tablet) 2 tablet PO BID [facility] Last Admin: 12/26/20 09:22 Dose: 2 tablet Documented by: Sodium Chloride (0.9% Saline Lock 10 Ml Syringe) 10 - 40 ml IV UD PRN PRN Reason: SALINE FLUSH Last Admin: 12/26/20 06:03 Dose: 10 ml Documented by: Tamsulosin HCl (Tamsulosin Hcl 0.4 Mg Capsule) 0.4 mg PO DAILY@1730 [facility] Throat Lozenges (Benzocaine/Menthol 1 Lozenge) 1 lozenge MUCOUS MEM Q2H PRN PRN PRN Reason: SORE THROAT Medical Necessity - Tobacco Use Smoking Status: Former smoker Tobacco Use: Non-smoker Assessment/Plan All Active Problems (Last Reviewed 10/09/20 @ 15:[address] Destin Cain DO) (HFpEF) heart failure with preserved ejection fraction (Acute) Debility (Acute) Hypoxia (Acute) Acute on chronic diastolic congestive heart failure (Acute) DEVAN (acute kidney injury) (Resolved) 1. Acute on chronic hypoxic respiratory failure secondary to acute on chronic heart failure with preserved ejection fraction-chest x-ray consistent with congestion. BNP 565. Continue IV Lasix. Strict I&O. Daily weight. Rickey wraps bilateral lower extremities. Continue supplement oxygen to maintain O2 above 90%. Patient recently discharged with 2 L nasal cannula supplemental oxygen. Will need repeat walking pulse ox prior to discharge. Echocardiogram 10/10/2020. Demonstrates an EF of 65%, RVSP estimated to be 63 mmHg. 2. Chronic lymphedema, acutely worsened with chronic lower extremity venous stasis ulcerations-follows with wound center. Rickey wraps ordered. Wound RN consult. 3. Chronic kidney disease stage IV-at baseline, trend BMP. 4. Chronic thrombocytopenia-stable. 5. Type 2 diabetes [id number] with sliding scale insulin. Continue home insulin regimen. 6. Hypertension-stable, continue carvedilol, hydralazine, isosorbide. 7. Hyperlipidemia-continue statin. 8. Chronic anemia/anemia of chronic disease/iron deficiency anemia-at baseline, outpatient iron infusions. 9. Gout-on allopurinol. 10. Former tobacco use-encouraged continued cessation. 11. IMAN-continue home CPAP regimen. 12. BPH-continue Flomax. 13. Morbid obesity-encouraged diet lifestyle modifications. DVT prophylaxis-Heparin subcu This patient was seen by SHUN Allen under the supervision of Dr. Hill. <Johanna Hill - Last Filed: 12/26/20 15:16> - Physical Exam Vitals/I&O's: Vital Signs Temp Pulse Resp BP Pulse Ox 97.7 F L 66 18 147/60 H 97 12/26/20 14:34 12/26/20 14:37 12/26/20 14:34 12/26/20 14:37 12/26/20 14:34 Oxygen Flow Rate (L/min) 6 Oxygen Delivery Method Venturi Mask Weight: 333 lb 8.95 oz Body Mass Index (BMI) 0.0 Finger Stick Blood Glucose 131 Intake and Output for Last 24 Hours 12/24/20 12/25/20 12/26/20 23:59 23:59 23:59 Intake Total 75 / 75 290 / 290 Balance 75 / 75 290 / 290 Microbiology Past 72 Hours 12/25/20 17:35 Mucosa - Nose SARS-CoV-2 Antigen (Rapid) - Final Laboratory Results 12/25/20 16:58: WBC 6.6, RBC 3.30 L, Hgb 10.4 L, Hct 34.6 L, MCV 104.8 H, MCH 31.5, MCHC 30.1 L, RDW Std Deviation 68.7 H, RDW Coeff of Gina 17.8 H, Plt Count 123 L, MPV 11.4, Immature Gran % (Auto) 0.500, Neut % (Auto) 87.2 H, Lymph % (Auto) 3.6 L, Chaves % (Auto) 7.0, Eos % (Auto) 1.5, Baso % (Auto) 0.2, Absolute Neuts (auto) 5.8, Absolute Lymphs (auto) 0.24 L, Nucleated RBC % 0, Differential Comment SCANNED, Hypochromasia 1+, Anisocytosis 1+, Macrocytosis 1+, Ovalocytes 1+, Acanthocytes (Spur) 1+ 12/25/20 16:58: Sodium 139, Potassium 5.3 H, Chloride 105, Carbon Dioxide 28.0, Anion Gap 6, BUN 89 H, Creatinine 3.04 H, Estim Creat Clear Calc 22.68, Est GFR (MDRD) Af Amer 26 L, Est GFR (MDRD) Non-Af 22 L, BUN/Creatinine Ratio 29.3 H, Glucose 110 H, Calcium 8.7, Troponin I < 0.015 12/25/20 16:58: B-Natriuretic Peptide 565.4 H 12/25/20 20:58: Magnesium 3.0 H, Troponin I < 0.015 12/25/20 22:36: POC Glucose 60 L 12/25/20 23:18: POC Glucose 103 12/26/20 01:17: Troponin I 0.018 12/26/20 04:48: WBC 6.1, RBC 3.02 L, Hgb 9.5 L, Hct 31.8 L, MCV 105.3 H, MCH 31.5, MCHC 29.9 L, RDW Std Deviation 68.0 H, RDW Coeff of Gina 17.5 H, Plt Count 98 L, MPV 10.6, Immature Gran % (Auto) 0.500, Neut % (Auto) 82.4 H, Lymph % (Auto) 5.5 L, Chaves % (Auto) 9.0, Eos % (Auto) 2.3, Baso % (Auto) 0.3, Absolute Neuts (auto) 5.1, Absolute Lymphs (auto) 0.34 L, Nucleated RBC % 0 12/26/20 04:48: Sodium 141, Potassium 4.8, Chloride 108 H, Carbon Dioxide 25.0, Anion Gap 8, BUN 87 H, Creatinine 2.81 H, Estim Creat Clear Calc 50.95, Est GFR (MDRD) Af Amer 29 L, Est GFR (MDRD) Non-Af 24 L, BUN/Creatinine Ratio 31.0 H, Glucose 75, Calcium 8.3 L, Total Bilirubin 1.00, AST 13 L, ALT 18, Alkaline Phosphatase 59, Total Protein 6.4, Albumin 3.0 L, Globulin 3.4, Albumin/Globulin Ratio 0.9, Triglycerides 65, Cholesterol 82, LDL Cholesterol 30, VLDL Cholesterol 13, HDL Cholesterol 39 L, TSH 1.44, Free T4 1.48 H 12/26/20 04:48: Troponin I 0.016 12/26/20 09:10: POC Glucose 128 H 12/26/20 11:33: POC Glucose 123 H Current Medications Acetaminophen (Acetaminophen 325 Mg Tablet) 650 mg PO Q6H PRN PRN PRN Reason: Pain Score 1-10/Temp > 100.7 F Last Admin: 12/26/20 13:36 Dose: 650 mg Documented by: Al Hydroxide/Mg Hydroxide (Mag Hydrox/Al Hydrox/Simeth 30 Ml Udc) 30 ml PO Q6H PRN PRN PRN Reason: Gastric Burning Albuterol Sulfate (Albuterol 2.5 Mg/3 Ml Vial.Neb.) 2.5 mg INHALATION Q2H PRN PRN PRN Reason: Dyspnea, wheezing Albuterol/Ipratropium (Ipratropium/Albuterol Sulfate 3 Ml Ampul.Neb) 3 ml INH ALATION Q6HWA.RT [facility] Last Admin: 12/26/20 12:32 Dose: 3 ml Documented by: Allopurinol (Allopurinol 100 Mg Tablet) [facility] Last Admin: 12/26/20 09:22 Dose: 100 mg Documented by: Aspirin (Aspirin 81 Mg Tab.Chew) 81 mg [facility] Last Admin: 12/26/20 09:22 Dose: 81 mg Documented by: Atorvastatin Calcium (Atorvastatin Calcium 80 Mg Tablet) 80 mg PO QHS [facility] Last Admin: 12/25/20 22:43 Dose: 80 mg Documented by: Calamine/Phenol (Menthol/Lanolin/Calamine/Znox 113 Gm Tube) 1 applic TOPICAL BID [facility]; Protocol Last Admin: 12/26/20 09:24 Dose: 1 applic Documented by: Carvedilol (Carvedilol 25 Mg Tablet) 50 mg PO BID [facility] Last Admin: 12/26/20 09:22 Dose: 50 mg Documented by: Clonidine (Clonidine Hcl 0.1 Mg Tablet) 0.3 mg PO BID [facility] Last Admin: 12/26/20 09:22 Dose: 0.3 mg Documented by: Fluticasone Propionate (Fluticasone 0.05% 1 [place] Nasal.Sry) 2 spray NASAL DAILY [facility] Last Admin: 12/26/20 09:24 Dose: 2 spray Documented by: Furosemide (Furosemide 100 Mg/10 Ml Vial) 60 mg IV Q8 [facility] Last Admin: 12/26/20 14:37 Dose: 60 mg Documented by: Guaifenesin (Guaifenesin 10 Ml Udc (200mg/10ml)) 20 ml PO Q4H PRN PRN PRN Reason: COUGH Heparin Sodium (Porcine) (Heparin Injection (Vial) 5,000 Unit/Ml Vial) 5,000 unit SC Q12 [facility] Last Admin: 12/26/20 09:22 Dose: 5,000 unit Documented by: Hydralazine HCl (Hydralazine 25 Mg Tablet) 25 mg PO TID [facility] Last Admin: 12/26/20 14:37 Dose: 25 mg Documented by: Hydralazine HCl (Hydralazine 20 Mg/Ml Vial) 10 mg IV Q4H PRN PRN PRN Reason: SBP > 160 Insulin Glargine (Insulin Glargine 100 Units/Ml Pen) 30 units SC DINNER [facility] Insulin Glargine (Insulin Glargine 100 Units/Ml Pen) 30 units SC BREAKFAST [facility] Last Admin: 12/26/20 09:24 Dose: 30 u Documented by: Insulin Human Lispro (Insulin Lispro 100 Unit/Ml Insuln.Pen) 5 unit SC LUNCH [facility] Last Admin: 12/26/20 11:57 Dose: 5 u Documented by: Insulin Human Lispro (Insulin Lispro 100 Unit/Ml Insuln.Pen) 5 unit SC DINNER [facility] Insulin Human Lispro (Insulin Lispro 100 Unit/Ml Insuln.Pen) 5 unit SC BREAKFAST [facility] Last Admin: 12/26/20 09:20 Dose: Not Given Documented by: Insulin Human Lispro (Insulin Lispro 100 Unit/Ml Insuln.Pen) 0 unit SC ACHS [facility]; Protocol Last Admin: 12/26/20 11:54 Dose: Not Given Documented by: Isosorbide Mononitrate (Isosorbide Mononitrate 120 Mg Tablet) 120 mg PO DAILY [facility] Last Admin: 12/26/20 09:25 Dose: 120 mg Documented by: Melatonin (Melatonin 3 Mg Tablet) 3 mg PO QHS PRN PRN PRN Reason: INSOMNIA Morphine Sulfate (Morphine 2 Mg/Ml Syringe) 2 mg IV Q3H PRN PRN PRN Reason: Pain Score 6-10 Nitroglycerin (Nitroglycerin (Inpatient Use) 0.4 Mg Tab.Subl) 0.4 mg SL Q5M PRN PRN Reason: CARDIAC/CHEST PAIN Nystatin (Nystatin Powder 15gm Bottle) 1 applic TOPICAL TID [facility]; Protocol Last Admin: 12/26/20 14:37 Dose: 1 applic Documented by: Ondansetron HCl (Ondansetron 4 Mg/2 Ml Vial) 4 mg IV Q8H PRN PRN PRN Reason: NAUSEA/VOMITING Polyethylene Glycol (Polyethylene Glycol 3350 17 Gm Packet) 17 gm PO DAILY [facility] Last Admin: 12/26/20 09:25 Dose: 17 gm Documented by: Prochlorperazine Edisylate (Prochlorperazine 10 Mg/2 Ml Vial) 5 mg IV Q4H PRN PRN PRN Reason: Breakthrough Nausea/Vomiting Senna/Docusate Sodium (Senna/Docusate Sodium 1 Tablet) 2 tablet PO BID [facility] Last Admin: 12/26/20 09:22 Dose: 2 tablet Documented by: Sodium Chloride (0.9% Saline Lock 10 Ml Syringe) 10 - 40 ml IV UD PRN PRN Reason: SALINE FLUSH Last Admin: 12/26/20 06:03 Dose: 10 ml Documented by: Tamsulosin HCl (Tamsulosin Hcl 0.4 Mg Capsule) 0.4 mg PO DAILY@1730 [facility] Throat Lozenges (Benzocaine/Menthol 1 Lozenge) 1 lozenge MUCOUS MEM Q2H PRN PRN PRN Reason: SORE THROAT Assessment/Plan Patient seen by Meghann Borges LINE PAINTING MACHINE OPERATOR-C under my supervision Patient seen and examined. He was admitted with a complaint of shortness of breath. Shortness of breath was noticed after he went to the [facility]. He was also noted to have significant swelling up to his mid abdomen. He could not tolerate nasal cannula in the ED and so was put on Ventimask to help with his oxygenation. He is usually on 2 L at home. BNP was 565.4. He is being managed for acute on chronic hypoxic respiratory failure due to acute on chronic heart failure with preserved ejection fraction. Patient seen and examined. He still feels short of breath. He was on 6 L of oxygen by Ventimask. He is usually on 2 L. He denied any chest pain or palpitations, dizziness, nausea vomiting or diarrhea. Review of systems otherwise negative. O/E: Vital Signs Temp Pulse Resp BP Pulse Ox 97.7 F L 66 18 147/60 H 97 12/26/20 14:34 12/26/20 14:37 12/26/20 14:34 12/26/20 14:37 12/26/20 14:34 General: Alert, Oriented x3, Cooperative HEENT: Atraumatic, PERRLA, EOMI, Normocephalic Neck: Supple, No JVD, Negative Carotid Bruits Lungs: Clear to auscultation, Diminished Cardiovascular: Regular rate, No murmurs Abdomen: Bowel Sounds Present, Soft, Non Tender, Non-Distended, Obese Extremities: No clubbing, No cyanosis, Capillary Refill Less than 3 Seconds, Edema - Bilateral lower extremity edema, Rickey wraps in place Skin: No rashes, No breakdown, - - Bilateral lower extremity venous stasis ulcerations Musculoskeletal: No Tenderness to Palpation of Joints or Extremities Neurological: Cranial nerves II-XII grossly intact, Neuro grossly intact Psych/Mental Status: Normal Affect, Appropriate Plan is continue diuresis with IV Lasix. Monitor intake and output. Titrate oxygen to maintain saturation above 90%. 2D echo done in October 2020 showed EF of 65% with RVSP of 60 mmHg. If his oxygen requirements remain high and he still is fluid overloaded, will consider a consult to cardiology. Rest as per Meghann Borges, LINE PAINTING MACHINE OPERATOR-C's note which I reviewed and endorsed. Inpatient E&M: 53822 Subs Hosp L3
[2020-12-26] MEDS: Acetaminophen 325 MG Tablet 650 MG PO ×2 (13:36→19:39)
--- NOTE | 2020-12-26 13:45 | CASEMGMT ---
JESSICA HERMAN assessment: Face to Face with patient for initial transition planning/care coordination assessment. RN VIRGIL introduced self and role at [facility], pt voices understanding and consents to assessment. Pt is sitting up in chair on venti mask in no distress. Pt is A/Ox4 and answers all questions appropriately. Care providers, pharmacy, and demographics verified. Presentation: Pt brought over from [facility] for increasing SOB. Pt reports being d/c'd from TCU recently Admitting dx: CHF exac, hypoxia PCP: Jose Specialists: Jody, cardio; Matt, nephro; Antoine, pulm; Migue, heme; Testgeorgie, podiatry Preferred Pharmacy: [facility] Insurance: [facility] A/B, [employer] Prescription Benefit: SilverRx Living Will/HPOA: Pt has LW/HPOA and is aware that they are on file at [facility]. Pt's sister, Rhiannon Tam, is HPOA. LNOK: Rhiannon Tam, sister/HPOA Living Arrangements: Pt states lives alone in 1 story home with 4 steps in and states has been having difficulty at home since discharge from TCU on 12/17/20. Pt states is independent with ADL's normally but has been struggling to complete on own at home. Transportation: Pt states drives self and states no transportation concerns. DME/HHC: Pt has the following DME: cane, WW, grab bars, shower chair, reacherx2, sock assist, lift chair, cpap, and 2L nc continuous thru [employer]. Pt is current with [facility] for SN, PT/OT and has been to TCU. Pt states he has 14 meals delivered weekly. Pt states concerns with going home at time of discharge and pt did not do well with therapy today. Pt states he would like referral sent to [facility] and Kyrie MOLINA aware, voices understanding. Pt states is retired. Pt states does not smoke cigarettes but does occasionally drink ETOH. Pt states no further concerns/needs. CM to follow for any further discharge planning/needs. Advised pt to ask for CM if any further questions/concerns/needs arise, voices understanding. Pt Goal: Home w/ HHC vs [facility] Plan: W, pending acceptance [facility] JESSICA HERMAN
--- NOTE | 2020-12-26 14:47 | CASEMGMT ---
Addendum entered by Gretel Butcher 12/26/20 15:33: SW has not heard back from [facility] yet. Gretel BASILIO Original Note: CM spoke with patient and he feels he will need to go to SNF for rehab. He told her he would like [facility]. SW went to patient's room. Introduced self and role at [facility]. He confirmed he wants to go to [facility] for rehab. He would maybe like to transition to assisted living after that. TRACY told him SW will fax the referral. TRACY told him SW is not sure if SW will have an answer today, but will let him know if SW does hear back. SW faxed referral to [facility] and also called leaving a message regarding referral. Gretel BASILIO
[2020-12-26] MEDS: Tamsulosin HCl 0.4 MG Capsule PO (16:35)
[2020-12-26 16:56] LABS: Bedside Glucose 132 mg/dL (70-110)
[2020-12-26] MEDS: Atorvastatin Calcium 80 MG Tablet PO (22:29)
[2020-12-26 22:45] LABS: Bedside Glucose 82 mg/dL (70-110)
[2020-12-27] VITALS (17 sets, daily range): BP systolic 114–149; BP diastolic 40–57; PULSE 57–77; RESP 15–18; TEMP 36.6–37.1; O2SAT 96–99
[2020-12-27] MEDS: hydrALAZINE 25 MG Tablet PO ×3 (06:09→22:05)
[2020-12-27] MEDS: Furosemide 100 MG/10 ML Vial 60 MG IV ×3 (06:10→22:09)
[2020-12-27] MEDS: Nystatin Powder 15gm Bottle 1 APPLIC TOPICAL ×3 (06:11→22:07)
[2020-12-27] MEDS: 0.9% Saline Lock 10 ML Syringe IV ×2 (06:12→15:21)
[2020-12-27 07:33] LABS: Hematocrit 32.4 % (40-54); Hemoglobin 9.6 g/dL (13.0-16.5); Mean Corp Hgb Conc 29.6 g/dL (32-36); Mean Corpuscular Hgb 31.2 pg (27.0-32.0); Mean Corpuscular Volume 105.2 fL (80-94); Mean Platelet Vol. 10.5 fl (6.2-12.0); POSITIVE COUNT YES; POSITIVE MORPHOLOGY YES; Platelet Count 96 K/mm3 (150-450); RBC Distribution Width CV 17.5 % (11.6-14.6); RBC Distribution Width SD 68.1 fl (35.1-43.9); Red Blood Count 3.08 M/mm3 (4.6-6.2); White Blood Count 7.6 K/mm3 (4.4-11.0)
[2020-12-27] MEDS: Ipratropium/Albuterol Sulfate 3 ML AMPUL.NEB INHALATION ×3 (07:55→19:47)
[2020-12-27 07:56] LABS: Anion Gap 6 (5-15); BUN 91 mg/dL (7-18); BUN/Creat Ratio 33.2 RATIO (10-20); Chloride 109 mmol/L (98-107); Creatinine, Serum 2.74 mg/dL (0.70-1.30); EST Glomerular Filtration Rate 24 mL/min (>60); Est Glom Filt Rate - Afr Amer 30 mL/min (>60); Estimated Creatinine Clearance 25.16 ml/min; Glucose 47 mg/dL (74-106); Potassium 4.7 mmol/L (3.5-5.1); Sodium Level 139 mmol/L (136-145)
[2020-12-27 08:00] LABS: Scan Indicated on CBC? Y/N YES- FLAGS NOTED
--- NOTE | 2020-12-27 08:09 | NURSING ---
blood sugar 43, recheck 44. 4 oz oj given. pt a&o
[2020-12-27] MEDS: Senna/Docusate Sodium 1 Tablet 2 TABLET PO ×2 (08:17→22:07)
[2020-12-27] MEDS: Aspirin 81 MG TAB.CHEW PO (08:17)
[2020-12-27] MEDS: cloNIDine HCl 0.1 MG Tablet 0.3 MG PO ×2 (08:17→22:08)
[2020-12-27] MEDS: Allopurinol 100 MG Tablet PO (08:17)
[2020-12-27] MEDS: Carvedilol 25 MG Tablet 50 MG PO ×2 (08:17→22:06)
[2020-12-27] MEDS: Polyethylene Glycol 3350 17 GM PACKET PO (08:18)
[2020-12-27] MEDS: Fluticasone 0.05% 1 SPRAY NASAL.SRY 2 SPRAY NASAL (08:18)
[2020-12-27] MEDS: Heparin Injection (Vial) 5,000 UNIT/ML VIAL 5000 UNIT SC ×2 (08:18→22:08)
[2020-12-27] MEDS: Acetaminophen 325 MG Tablet 650 MG PO ×2 (08:30→15:21)
--- NOTE | 2020-12-27 08:33 | NURSING ---
recheck blood sugar 86, at this time pt is eating breakfast
[2020-12-27 08:40] LABS: Bedside Glucose 86 mg/dL (70-110)
[2020-12-27 09:23] LABS: Differential Comment SCANNED
--- NOTE | 2020-12-27 11:48 | PN_ITS ---
<Meghann Borges LIBRARY SUPERVISOR - Last Filed: 12/27/20 11:50> Patient Problems: Active and Suspected Problems (Last Reviewed 10/09/20 @ 15:[address] Destin bell DO) Hypoxia (Acute) Acute on chronic diastolic congestive heart failure (Acute) Subjective: Patient seen and examined. Reports improvement in breathing. Remains on Ventimask. Denies new symptoms or complaints. - Physical Exam Vitals/I&O's: Vital Signs Temp Pulse Resp BP Pulse Ox 97.8 F 64 16 118/49 L 97 12/27/20 08:00 12/27/20 08:00 12/27/20 08:00 12/27/20 08:00 12/27/20 10:37 Oxygen Flow Rate (L/min) 4 Oxygen Delivery Method Venturi Mask Weight: 333 lb 8.95 oz Body Mass Index (BMI) 0.0 Finger Stick Blood Glucose 131 Intake and Output for Last 24 Hours 12/25/20 12/26/20 12/27/20 23:59 23:59 23:59 Intake Total 75 / 75 990 / 990 50 / 50 Balance 75 / 75 990 / 990 50 / 50 General: Alert, Oriented x3, Cooperative HEENT: Atraumatic, PERRLA, EOMI, Normocephalic Neck: Supple, No JVD, Negative Carotid Bruits Lungs: Clear to auscultation, Diminished Cardiovascular: Regular rate, No murmurs Abdomen: Bowel Sounds Present, Soft, Non Tender, Non-Distended, Obese Extremities: No clubbing, No cyanosis, Edema - Bilateral lower extremities, Rickey wraps in place Skin: - - Bilateral lower extremity venous stasis ulcerations Musculoskeletal: No Tenderness to Palpation of Joints or Extremities Neurological: Cranial nerves II-XII grossly intact, Neuro grossly intact Psych/Mental Status: Normal Affect, Appropriate Microbiology Past 72 Hours 12/25/20 17:35 Mucosa - Nose SARS-CoV-2 Antigen (Rapid) - Final Laboratory Results 12/26/20 16:33: POC Glucose 132 H 12/26/20 22:24: POC Glucose 82 12/27/20 07:16: WBC 7.6, RBC 3.08 L, Hgb 9.6 L, Hct 32.4 L, MCV 105.2 H, MCH 31.2, MCHC 29.6 L, RDW Std Deviation 68.1 H, RDW Coeff of Gina 17.5 H, Plt Count 96 L, MPV 10.5, Differential Comment SCANNED 12/27/20 07:16: Sodium 139, Potassium 4.7, Chloride 109 H, Carbon Dioxide 24.0, Anion Gap 6, BUN 91 H, Creatinine 2.74 H, Estim Creat Clear Calc 25.16, Est GFR (MDRD) Af Amer 30 L, Est GFR (MDRD) Non-Af 24 L, BUN/Creatinine Ratio 33.2 H, Glucose 47 L, Calcium 8.0 L 12/27/20 08:33: POC Glucose 86 Current Medications Acetaminophen (Acetaminophen 325 Mg Tablet) 650 mg PO Q6H PRN PRN PRN Reason: Pain Score 1-10/Temp > 100.7 F Last Admin: 12/27/20 08:30 Dose: 650 mg Documented by: Al Hydroxide/Mg Hydroxide (Mag Hydrox/Al Hydrox/Simeth 30 Ml Udc) 30 ml PO Q6H PRN PRN PRN Reason: Gastric Burning Albuterol Sulfate (Albuterol 2.5 Mg/3 Ml Vial.Neb.) 2.5 mg INHALATION Q2H PRN PRN PRN Reason: Dyspnea, wheezing Albuterol/Ipratropium (Ipratropium/Albuterol Sulfate 3 Ml Ampul.Neb) 3 ml INHALATION Q6HWA.RT [facility] Last Admin: 12/27/20 07:55 Dose: 3 ml Documented by: Allopurinol ([facility] 100 Mg Tablet) [facility] Last Admin: 12/27/20 08:17 Dose: 100 mg Documented by: Aspirin (Aspirin 81 Mg Tab.Chew) [facility] Last Admin: 12/27/20 08:17 Dose: 81 mg Documented by: Atorvastatin Calcium (Atorvastatin Calcium 80 Mg Tablet) 80 mg PO QHS [facility] Last Admin: 12/26/20 22:29 Dose: 80 mg Documented by: Calamine/Phenol (Menthol/Lanolin/Calamine/Znox 113 Gm Tube) 1 applic TOPICAL BID [facility]; Protocol Last Admin: 12/26/20 22:27 Dose: Not Given Documented by: Carvedilol (Carvedilol 25 Mg Tablet) 50 mg PO BID [facility] Last Admin: 12/27/20 08:17 Dose: 50 mg Documented by: Clonidine (Clonidine Hcl 0.1 Mg Tablet) 0.3 mg PO BID [facility] Last Admin: 12/27/20 08:17 Dose: 0.3 mg Documented by: Fluticasone Propionate (Fluticasone 0.05% 1 [place] Nasal.Sry) 2 spray NASAL DAILY [facility] Last Admin: 12/27/20 08:18 Dose: 2 spray Documented by: Furosemide (Furosemide 100 Mg/10 Ml Vial) 60 mg IV Q8 [facility] Last Admin: 12/27/20 06:10 Dose: 60 mg Documented by: Guaifenesin (Guaifenesin 10 Ml Udc (200mg/10ml)) 20 ml PO Q4H PRN PRN PRN Reason: COUGH Heparin Sodium (Porcine) (Heparin Injection (Vial) 5,000 Unit/Ml Vial) 5,000 unit SC Q12 [facility] Last Admin: 12/27/20 08:18 Dose: 5,000 unit Documented by: Hydralazine HCl (Hydralazine 25 Mg Tablet) 25 mg PO TID [facility] Last Admin: 12/27/20 06:09 Dose: 25 mg Documented by: Hydralazine HCl (Hydralazine 20 Mg/Ml Vial) 10 mg IV Q4H PRN PRN PRN Reason: SBP > 160 Insulin Glargine (Insulin Glargine 100 Units/Ml Pen) 30 units SC DINNER [facility] Last Admin: 12/26/20 16:35 Dose: 30 u Documented by: Insulin Glargine (Insulin Glargine 100 Units/Ml Pen) 30 units SC BREAKFAST [facility] Last Admin: 12/27/20 11:26 Dose: Not Given Documented by: Insulin Human Lispro (Insulin Lispro 100 Unit/Ml Insuln.Pen) 5 unit SC LUNCH [facility] Last Admin: 12/26/20 11:57 Dose: 5 u Documented by: Insulin Human Lispro (Insulin Lispro 100 Unit/Ml Insuln.Pen) 5 unit SC DINNER [facility] Last Admin: 12/26/20 16:36 Dose: 5 u Documented by: Insulin Human Lispro (Insulin Lispro 100 Unit/Ml Insuln.Pen) 5 unit SC BREAKFAST [facility] Last Admin: 12/27/20 11:25 Dose: Not Given Documented by: Insulin Human Lispro (Insulin Lispro 100 Unit/Ml Insuln.Pen) 0 unit SC ACHS [facility] ; Protocol Last Admin: 12/27/20 08:11 Dose: Not Given Documented by: Isosorbide Mononitrate (Isosorbide Mononitrate 120 Mg Tablet) 120 mg PO DAILY [facility] Last Admin: 12/27/20 08:17 Dose: 120 mg Documented by: Melatonin (Melatonin 3 Mg Tablet) 3 mg PO QHS PRN PRN PRN Reason: INSOMNIA Morphine Sulfate (Morphine 2 Mg/Ml Syringe) 2 mg IV Q3H PRN PRN PRN Reason: Pain Score 6-10 Nitroglycerin (Nitroglycerin (Inpatient Use) 0.4 Mg Tab.Subl) 0.4 mg SL Q5M PRN PRN Reason: CARDIAC/CHEST PAIN Nystatin (Nystatin Powder 15gm Bottle) 1 applic TOPICAL TID [facility]; Protocol Last Admin: 12/27/20 06:11 Dose: 1 applic Documented by: Ondansetron HCl (Ondansetron 4 Mg/2 Ml Vial) 4 mg IV Q8H PRN PRN PRN Reason: NAUSEA/VOMITING Polyethylene Glycol (Polyethylene Glycol 3350 17 Gm Packet) 17 gm PO DAILY [facility] Last Admin: 12/27/20 08:18 Dose: 17 gm Documented by: Prochlorperazine Edisylate (Prochlorperazine 10 Mg/2 Ml Vial) 5 mg IV Q4H PRN PRN PRN Reason: Breakthrough Nausea/Vomiting Senna/Docusate Sodium (Senna/Docusate Sodium 1 Tablet) 2 tablet PO BID [facility] Last Admin: 12/27/20 08:17 Dose: 2 tablet Documented by: Sodium Chloride (0.9% Saline Lock 10 Ml Syringe) 10 - 40 ml IV UD PRN PRN Reason: SALINE FLUSH Last Admin: 12/27/20 06:12 Dose: 10 ml Documented by: Tamsulosin HCl (Tamsulosin Hcl 0.4 Mg Capsule) 0.4 mg PO DAILY@1730 [facility] Last Admin: 12/26/20 16:35 Dose: 0.4 mg Documented by: Throat Lozenges (Benzocaine/Menthol 1 Lozenge) 1 lozenge MUCOUS MEM Q2H PRN PRN PRN Reason: SORE THROAT Medical Necessity - Tobacco Use Smoking Status: Former smoker Tobacco Use: Non-smoker Assessment/Plan All Active Problems (Last Reviewed 10/09/20 @ 15:[address] Destin Jopperi, DO) (HFpEF) heart failure with preserved ejection fraction (Acute) Debility (Acute) Hypoxia (Acute) Acute on chronic diastolic congestive heart failure (Acute) DEVAN (acute kidney injury) (Resolved) 1. Acute on chronic hypoxic respiratory failure secondary to acute on chronic heart failure with preserved ejection fraction-chest x-ray consistent with congestion. BNP 565. Continue IV Lasix. Strict I&O. Daily weight. Rickey wraps bilateral lower extremities. Continue supplement oxygen to maintain O2 above 90%. Patient recently discharged with 2 L nasal cannula supplemental oxygen. Will need repeat walking pulse ox prior to discharge. Echocardiogram 10/10/2020. Demonstrates an EF of 65%, RVSP estimated to be 63 mmHg. 2. Chronic lymphedema, acutely worsened with chronic lower extremity venous stasis ulcerations-follows with wound center. Rickey wraps ordered. Wound RN consult. 3. Chronic kidney disease stage IV-at baseline, trend BMP. 4. Chronic thrombocytopenia-stable. 5. Type 2 diabetes [id number] with sliding scale insulin. Continue home insulin regimen. 6. Hypertension-stable, continue carvedilol, hydralazine, isosorbide. 7. Hyperlipidemia-continue statin. 8. Chronic anemia/anemia of chronic disease/iron deficiency anemia-at baseline, outpatient iron infusions. 9. Gout-on allopurinol. 10. Former tobacco use-encouraged continued cessation. 11. IMAN-continue home CPAP regimen. 12. BPH-continue Flomax. 13. Morbid obesity-encouraged diet lifestyle modifications. DVT prophylaxis-Heparin subcu This patient was seen by SHUN Allen under the supervision of Dr. Harrington. <Shaun Harrington F - Last Filed: 12/27/20 14:33> - Physical Exam Vitals/I&O's: Vital Signs Temp Pulse Resp BP Pulse Ox 97.8 F 77 18 118/49 L 97 12/27/20 08:00 12/27/20 13:48 12/27/20 12:39 12/27/20 08:00 12/27/20 10:37 Oxygen Flow Rate (L/min) 4 Oxygen Delivery Method Venturi Mask Weight: 333 lb 8.95 oz Body Mass Index (BMI) 0.0 Finger Stick Blood Glucose 131 Intake and Output for Last 24 Hours 12/25/20 12/26/20 12/27/20 23:59 23:59 23:59 Intake Total 75 / 75 990 / 990 50 / 50 Balance 75 / 75 990 / 990 50 / 50 Microbiology Past 72 Hours 12/25/20 17:35 Mucosa - Nose SARS-CoV-2 Antigen (Rapid) - Final Laboratory Results 12/26/20 16:33: POC Glucose 132 H 12/26/20 22:24: POC Glucose 82 12/27/20 07:16: WBC 7.6, RBC 3.08 L, Hgb 9.6 L, Hct 32.4 L, MCV 105.2 H, MCH 31.2, MCHC 29.6 L, RDW Std Deviation 68.1 H, RDW Coeff of Gina 17.5 H, Plt Count 96 L, MPV 10.5, Differential Comment SCANNED 12/27/20 07:16: Sodium 139, Potassium 4.7, Chloride 109 H, Carbon Dioxide 24.0, Anion Gap 6, BUN 91 H, Creatinine 2.74 H, Estim Creat Clear Calc 25.16, Est GFR (MDRD) Af Amer 30 L, Est GFR (MDRD) Non-Af 24 L, BUN/Creatinine Ratio 33.2 H, Glucose 47 L, Calcium 8.0 L 12/27/20 07:22: Hemoglobin A1c 5.3 12/27/20 08:33: POC Glucose 86 12/27/20 11:58: POC Glucose 120 H Current Medications Acetaminophen (Acetaminophen 325 Mg Tablet) 650 mg PO Q6H PRN PRN PRN Reason: Pain Score 1-10/Temp > 100.7 F Last Admin: 12/27/20 08:30 Dose: 650 mg Documented by: Al Hydroxide/Mg Hydroxide (Mag Hydrox/Al Hydrox/Simeth 30 Ml Udc) 30 ml PO Q6H PRN PRN PRN Reason: Gastric Burning Albuterol Sulfate (Albuterol 2.5 Mg/3 Ml Vial.Neb.) 2.5 mg INHALATION Q2H PRN PRN PRN Reason: Dyspnea, wheezing Albuterol/Ipratropium (Ipratropium/Albuterol Sulfate 3 Ml Ampul.Neb) 3 ml INHALATION Q6HWA.RT [facility] Last Admin: 12/27/20 12:38 Dose: 3 ml Documented by: Allopurinol (Allop[facility]ol 100 Mg Tablet) [facility] Last Admin: 12/27/20 08:17 Dose: 100 mg Documented by: Aspirin (Aspirin 81 Mg Tab.Chew) 81 mg PO DAILYCM [facility] Last Admin: 12/27/20 08:17 Dose: 81 mg Documented by: Atorvastatin Calcium (Atorvastatin Calcium 80 Mg Tablet) 80 mg PO QHS [facility] Last Admin: 12/26/20 22:29 Dose: 80 mg Documented by: Calamine/Phenol (Menthol/Lanolin/Calamine/Znox 113 Gm Tube) 1 applic TOPICAL BID [facility]; Protocol Last Admin: 12/26/20 22:27 Dose: Not Given Documented by: Carvedilol (Carvedilol 25 Mg Tablet) 50 mg PO BID [facility] Last Admin: 12/27/20 08:17 Dose: 50 mg Documented by: Clonidine (Clonidine Hcl 0.1 Mg Tablet) 0.3 mg PO BID [facility] Last Admin: 12/27/20 08:17 Dose: 0.3 mg Documented by: Fluticasone Propionate (Fluticasone 0.05% 1 [place] Nasal.Sry) 2 spray NASAL DAILY [facility] Last Admin: 12/27/20 08:18 Dose: 2 spray Documented by: Furosemide (Furosemide 100 Mg/10 Ml Vial) 60 mg IV Q8 [facility] Last Admin: 12/27/20 06:10 Dose: 60 mg Documented by: Guaifenesin (Guaifenesin 10 Ml Udc (200mg/10ml)) 20 ml PO Q4H PRN PRN PRN Reason: COUGH Heparin Sodium (Porcine) (Heparin Injection (Vial) 5,000 Unit/Ml Vial) 5,000 unit SC Q12 [facility] Last Admin: 12/27/20 08:18 Dose: 5,000 unit Documented by: Hydralazine HCl (Hydralazine 25 Mg Tablet) 25 mg PO TID [facility] Last Admin: 12/27/20 06:09 Dose: 25 mg Documented by: Hydralazine HCl (Hydralazine 20 Mg/Ml Vial) 10 mg IV Q4H PRN PRN PRN Reason: SBP > 160 Insulin Glargine (Insulin Glargine 100 Units/Ml Pen) 30 units SC DINNER [facility] Last Admin: 12/26/20 16:35 Dose: 30 u Documented by: Insulin Glargine (Insulin Glargine 100 Units/Ml Pen) 30 units SC BREAKFAST [facility] Last Admin: 12/27/20 11:26 Dose: Not Given Documented by: Insulin Human Lispro (Insulin Lispro 100 Unit/Ml Insuln.Pen) 0 unit SC ACHS [facility]; Protocol Last Admin: 12/27/20 12:03 Dose: Not Given Documented by: Isosorbide Mononitrate (Isosorbide Mononitrate 120 Mg Tablet) 120 mg PO DAILY [facility] Last Admin: 12/27/20 08:17 Dose: 120 mg Documented by: Melatonin (Melatonin 3 Mg Tablet) 3 mg PO QHS PRN PRN PRN Reason: INSOMNIA Morphine Sulfate (Morphine 2 Mg/Ml Syringe) 2 mg IV Q3H PRN PRN PRN Reason: Pain Score 6-10 Nitroglycerin (Nitroglycerin (Inpatient Use) 0.4 Mg Tab.Subl) 0.4 mg SL Q5M PRN PRN Reason: CARDIAC/CHEST PAIN Nystatin (Nystatin Powder 15gm Bottle) 1 applic TOPICAL TID [facility]; Protocol Last Admin: 12/27/20 06:11 Dose: 1 applic Documented by: Ondansetron HCl (Ondansetron 4 Mg/2 Ml Vial) 4 mg IV Q8H PRN PRN PRN Reason: NAUSEA/VOMITING Polyethylene Glycol (Polyethylene Glycol 3350 17 Gm Packet) 17 gm PO DAILY [facility] Last Admin: 12/27/20 08:18 Dose: 17 gm Documented by: Prochlorperazine Edisylate (Prochlorperazine 10 Mg/2 Ml Vial) 5 mg IV Q4H PRN PRN PRN Reason: Breakthrough Nausea/Vomiting Senna/Docusate Sodium (Senna/Docusate Sodium 1 Tablet) 2 tablet PO BID [facility] Last Admin: 12/27/20 08:17 Dose: 2 tablet Documented by: Sodium Chloride (0.9% Saline Lock 10 Ml Syringe) 10 - 40 ml IV UD PRN PRN Reason: SALINE FLUSH Last Admin: 12/27/20 06:12 Dose: 10 ml Documented by: Tamsulosin HCl (Tamsulosin Hcl 0.4 Mg Capsule) 0.4 mg PO DAILY@1730 [facility] Last Admin: 12/26/20 16:35 Dose: 0.4 mg Documented by: Throat Lozenges (Benzocaine/Menthol 1 Lozenge) 1 lozenge MUCOUS MEM Q2H PRN PRN PRN Reason: SORE THROAT Addendum: Dr. Harrington I personally examined the patient and reviewed the chart. I agree with the above. 70-year-old male presents to the hospital with worsening shortness of breath. He is found to have acute on chronic diastolic CHF exacerbation. Continue with IV Lasix and will wean off oxygen as able. His echocardiogram on October 10, 2020 demonstrated an EF of 65% with an RVSP of 63 mmHg. He also has CKD 4 and his renal function is improving with the diuresis. We will continue to monitor make adjustments as necessary. Inpatient E&M: 53803 Subs Hosp L2
[2020-12-27 12:05] LABS: Bedside Glucose 120 mg/dL (70-110)
[2020-12-27 13:07] LABS: Hemoglobin A1c 5.3 % (3.8-5.6)
[2020-12-27] MEDS: Menthol/Lanolin/Calamine/Znox 113 GM Tube 1 APPLIC TOPICAL ×2 (15:11→22:06)
[2020-12-27] MEDS: Insulin Lispro 100 UNIT/ML INSULN.PEN SC ×2 (17:07→22:05)
[2020-12-27] MEDS: Tamsulosin HCl 0.4 MG Capsule PO (17:09)
[2020-12-27 17:36] LABS: Bedside Glucose 161 mg/dL (70-110)
[2020-12-27] MEDS: Atorvastatin Calcium 80 MG Tablet PO (22:08)
[2020-12-27 22:41] LABS: Bedside Glucose 183 mg/dL (70-110)
[2020-12-28] VITALS (19 sets, daily range): BP systolic 104–152; BP diastolic 30–57; PULSE 54–72; RESP 15–20; TEMP 36.5–36.8; O2SAT 95–100
[2020-12-28 06:30] LABS: Anion Gap 6 (5-15); BUN 94 mg/dL (7-18); BUN/Creat Ratio 33.3 RATIO (10-20); Calcium,Total 8.3 mg/dL (8.5-10.1); Chloride 106 mmol/L (98-107); Creatinine, Serum 2.82 mg/dL (0.70-1.30); EST Glomerular Filtration Rate 24 mL/min (>60); Est Glom Filt Rate - Afr Amer 29 mL/min (>60); Estimated Creatinine Clearance 24.45 ml/min; Glucose 134 mg/dL (74-106); Sodium Level 138 mmol/L (136-145)
[2020-12-28] MEDS: Nystatin Powder 15gm Bottle 1 APPLIC TOPICAL ×3 (06:32→21:26)
[2020-12-28 06:56] LABS: Bedside Glucose 129 mg/dL (70-110)
[2020-12-28] MEDS: cloNIDine HCl 0.1 MG Tablet 0.3 MG PO ×2 (09:48→21:24)
[2020-12-28] MEDS: Carvedilol 25 MG Tablet 50 MG PO ×2 (09:48→21:25)
[2020-12-28] MEDS: Allopurinol 100 MG Tablet PO (09:50)
[2020-12-28] MEDS: Menthol/Lanolin/Calamine/Znox 113 GM Tube 1 APPLIC TOPICAL ×2 (09:50→21:26)
[2020-12-28] MEDS: Aspirin 81 MG TAB.CHEW PO (09:50)
[2020-12-28] MEDS: Fluticasone 0.05% 1 SPRAY NASAL.SRY 2 SPRAY NASAL (09:52)
[2020-12-28] MEDS: Senna/Docusate Sodium 1 Tablet 2 TABLET PO ×2 (09:53→21:24)
[2020-12-28] MEDS: Heparin Injection (Vial) 5,000 UNIT/ML VIAL 5000 UNIT SC ×2 (09:54→21:25)
--- NOTE | 2020-12-28 11:28 | PN_ITS ---
<JonyMeghann SENIOR ELECTRONICS TECHNICIAN - Last Filed: 12/28/20 11:32> Patient Problems: Active and Suspected Problems (Last Reviewed 10/09/20 @ 15:[address] Destin bell DO) Hypoxia (Acute) Acute on chronic diastolic congestive heart failure (Acute) Subjective: Patient seen and examined. Reports improvement in breathing. Remains on Ventimask however he states this is due to not being able to breathe through his nose. He denies new symptoms or complaints. - Physical Exam Vitals/I&O's: Vital Signs Temp Pulse Resp BP Pulse Ox 97.7 F L 72 18 152/57 H 99 12/28/20 08:57 12/28/20 08:57 12/28/20 08:57 12/28/20 08:57 12/28/20 08:57 Oxygen Flow Rate (L/min) 4 Oxygen Delivery Method Venturi Mask Weight: 338 lb 3.025 oz Body Mass Index (BMI) 0.0 Finger Stick Blood Glucose 131 Intake and Output for Last 24 Hours 12/26/20 12/27/20 12/28/20 23:59 23:59 23:59 Intake Total 990 / 990 50 / 250 400 / 400 Balance 990 / 990 50 / 250 400 / 400 General: Alert, Oriented x3, Cooperative HEENT: Atraumatic, PERRLA, EOMI, Normocephalic Neck: Supple, No JVD, Negative Carotid Bruits Lungs: Clear to auscultation, Diminished Cardiovascular: Regular rate, No murmurs Abdomen: Bowel Sounds Present, Soft, Non Tender, Non-Distended Extremities: No clubbing, No cyanosis, Edema - Bilateral lower extremities, Rickey wraps in place Skin: - - Bilateral lower extremity venous stasis ulcerations Musculoskeletal: No Tenderness to Palpation of Joints or Extremities Neurological: Cranial nerves II-XII grossly intact, Neuro grossly intact Psych/Mental Status: Normal Affect, Appropriate Microbiology Past 72 Hours 12/25/20 17:35 Mucosa - Nose SARS-CoV-2 Antigen (Rapid) - Final Laboratory Results 12/27/20 07:22: Hemoglobin A1c 5.3 12/27/20 11:58: POC Glucose 120 H 12/27/20 17:04: POC Glucose 161 H 12/27/20 22:03: POC Glucose 183 H 12/28/20 05:45: Sodium 138, Potassium 5.0, Chloride 106, Carbon Dioxide 26.0, Anion Gap 6, BUN 94 H, Creatinine 2.82 H, Estim Creat Clear Calc 24.45, Est GFR (MDRD) Af Amer 29 L, Est GFR (MDRD) Non-Af 24 L, BUN/Creatinine Ratio 33.3 H, Glucose 134 H, Calcium 8.3 L 12/28/20 06:30: POC Glucose 129 H Current Medications Acetaminophen (Acetaminophen 325 Mg Tablet) 650 mg PO Q6H PRN PRN PRN Reason: Pain Score 1-10/Temp > 100.7 F Last Admin: 12/27/20 15:21 Dose: 650 mg Documented by: Al Hydroxide/Mg Hydroxide (Mag Hydrox/Al Hydrox/Simeth 30 Ml Udc) 30 ml PO Q6H PRN PRN PRN Reason: Gastric Burning Albuterol Sulfate (Albuterol 2.5 Mg/3 Ml Vial.Neb.) 2.5 mg INHALATION Q2H PRN PRN PRN Reason: Dyspnea, wheezing Albuterol/Ipratropium (Ipratropium/Albuterol Sulfate 3 Ml Ampul.Neb) 3 ml INHALATION Q6HWA.RT [facility] Last Admin: 12/27/20 19:47 Dose: 3 ml Documented by: Allopurinol (Allop[facility]ol 100 Mg Tablet) [facility] Last Admin: 12/28/20 09:50 Dose: 100 mg Documented by: Aspirin (Aspirin 81 Mg Tab.Chew) [facility] Last Admin: 12/28/20 09:50 Dose: 81 mg Documented by: Atorvastatin Calcium (Atorvastatin Calcium 80 Mg Tablet) 80 mg PO QHS [facility] Last Admin: 12/27/20 22:08 Dose: 80 mg Documented by: Calamine/Phenol (Menthol/Lanolin/Calamine/Znox 113 Gm Tube) 1 applic TOPICAL BID [facility]; Protocol Last Admin: 12/28/20 09:50 Dose: 1 applic Documented by: Carvedilol (Carvedilol 25 Mg Tablet) 50 mg PO BID [facility] Last Admin: 12/28/20 09:48 Dose: 50 mg Documented by: Clonidine (Clonidine Hcl 0.1 Mg Tablet) 0.3 mg PO BID [facility] Last Admin: 12/28/20 09:48 Dose: 0.3 mg Documented by: Fluticasone Propionate (Fluticasone 0.05% 1 [place] Nasal.Sry) 2 spray NASAL DAILY [facility] Last Admin: 12/28/20 09:52 Dose: 2 spray Documented by: Furosemide (Furosemide 100 Mg/10 Ml Vial) 60 mg IV Q8 [facility] Last Admin: 12/28/20 06:43 Dose: Not Given Documented by: Guaifenesin (Guaifenesin 10 Ml Udc (200mg/10ml)) 20 ml PO Q4H PRN PRN PRN Reason: COUGH Heparin Sodium (Porcine) (Heparin Injection (Vial) 5,000 Unit/Ml Vial) 5,000 unit SC Q12 [facility] Last Admin: 12/28/20 09:54 Dose: 5,000 unit Documented by: Hydralazine HCl (Hydralazine 25 Mg Tablet) 25 mg PO TID [facility] Last Admin: 12/28/20 06:32 Dose: Not Given Documented by: Hydralazine HCl (Hydralazine 20 Mg/Ml Vial) 10 mg IV Q4H PRN PRN PRN Reason: SBP > 160 Insulin Glargine (Insulin Glargine 100 Units/Ml Pen) 30 units SC DINNER [facility] Last Admin: 12/27/20 17:08 Dose: 30 u Documented by: Insulin Glargine (Insulin Glargine 100 Units/Ml Pen) 30 units SC BREAKFAST [facility] Last Admin: 12/28/20 09:48 Dose: 30 u Documented by: Insulin Human Lispro (Insulin Lispro 100 Unit/Ml Insuln.Pen) 0 unit SC ACHS [facility]; Protocol Last Admin: 12/28/20 06:33 Dose: Not Given Documented by: Isosorbide Mononitrate (Isosorbide Mononitrate 120 Mg Tablet) 120 mg PO DAILY [facility] Last Admin: 12/28/20 09:54 Dose: 120 mg Documented by: Melatonin (Melatonin 3 Mg Tablet) 3 mg PO QHS PRN PRN PRN Reason: INSOMNIA Morphine Sulfate (Morphine 2 Mg/Ml Syringe) 2 mg IV Q3H PRN PRN PRN Reason: Pain Score 6-10 Nitroglycerin (Nitroglycerin (Inpatient Use) 0.4 Mg Tab.Subl) 0.4 mg SL Q5M PRN PRN Reason: CARDIAC/CHEST PAIN Nystatin (Nystatin Powder 15gm Bottle) 1 applic TOPICAL TID [facility]; Protocol Last Admin: 12/28/20 06:32 Dose: 1 applic Documented by: Ondansetron HCl (Ondansetron 4 Mg/2 Ml Vial) 4 mg IV Q8H PRN PRN PRN Reason: NAUSEA/VOMITING Polyethylene Glycol (Polyethylene Glycol 3350 17 Gm Packet) 17 gm PO DAILY [facility] Last Admin: 12/28/20 09:58 Dose: Not Given Documented by: Prochlorperazine Edisylate (Prochlorperazine 10 Mg/2 Ml Vial) 5 mg IV Q4H PRN PRN PRN Reason: Breakthrough Nausea/Vomiting Senna/Docusate Sodium (Senna/Docusate Sodium 1 Tablet) 2 tablet PO BID [facility] Last Admin: 12/28/20 09:53 Dose: 2 tablet Documented by: Sodium Chloride (0.9% Saline Lock 10 Ml Syringe) 10 - 40 ml IV UD PRN PRN Reason: SALINE FLUSH Last Admin: 12/27/20 15:21 Dose: 10 ml Documented by: Tamsulosin HCl (Tamsulosin Hcl 0.4 Mg Capsule) 0.4 mg PO DAILY@1730 [facility] Last Admin: 12/27/20 17:09 Dose: 0.4 mg Documented by: Throat Lozenges (Benzocaine/Menthol 1 Lozenge) 1 lozenge MUCOUS MEM Q2H PRN PRN PRN Reason: SORE THROAT Medical Necessity - Tobacco Use Smoking Status: Former smoker Tobacco Use: Non-smoker Assessment/Plan All Active Problems (Last Reviewed 10/09/20 @ 15:[address] Destin Cain, DO) (HFpEF) heart failure with preserved ejection fraction (Acute) Debility (Acute) Hypoxia (Acute) Acute on chronic diastolic congestive heart failure (Acute) DEVAN (acute kidney injury) (Resolved) 1. Acute on chronic hypoxic respiratory failure secondary to acute on chronic heart failure with preserved ejection fraction-chest x-ray consistent with congestion. BNP 565. Continue IV Lasix. Strict I&O. Daily weight. Rickey wraps bilateral lower extremities. Continue supplement oxygen to maintain O2 above 90%. Patient recently discharged with 2 L nasal cannula supplemental oxygen. Will need repeat walking pulse ox prior to discharge. Echocardiogram 10/10/2020. Demonstrates an EF of 65%, RVSP estimated to be 63 mmHg. 2. Chronic lymphedema, acutely worsened with chronic lower extremity venous stasis ulcerations-follows with wound center. Rcikey wraps ordered. Wound RN jan dewitt. 3. Chronic kidney disease stage IV-at baseline, trend BMP. 4. Chronic thrombocytopenia-stable. 5. Type 2 diabetes [id number]-Dnput with sliding scale insulin. Continue home insulin regimen. 6. Hypertension-stable, continue carvedilol, hydralazine, isosorbide. 7. Hyperlipidemia-continue statin. 8. Chronic anemia/anemia of chronic disease/iron deficiency anemia-at baseline, outpatient iron infusions. 9. Gout-on allopurinol. 10. Former tobacco use-encouraged continued cessation. 11. IMAN-continue home CPAP regimen. 12. BPH-continue Flomax. 13. Morbid obesity-encouraged diet lifestyle modifications. DVT prophylaxis-Heparin subcu This patient was seen by SHUN Allen under the supervision of Dr. [facility]. <Shaun [facility] F - Last Filed: 12/28/20 12:12> - Physical Exam Vitals/I&O's: Vital Signs Temp Pulse Resp BP Pulse Ox 97.7 F L 72 18 152/57 H 99 12/28/20 08:57 12/28/20 08:57 12/28/20 08:57 12/28/20 08:57 12/28/20 08:57 Oxygen Flow Rate (L/min) 4 Oxygen Delivery Method Venturi Mask Weight: 338 lb 3.025 oz Body Mass Index (BMI) 0.0 Finger Stick Blood Glucose 131 Intake and Output for Last 24 Hours 12/26/20 12/27/20 12/28/20 23:59 23:59 23:59 Intake Total 990 / 990 50 / 250 400 / 400 Balance 990 / 990 50 / 250 400 / 400 Microbiology Past 72 Hours 12/25/20 17:35 Mucosa - Nose SARS-CoV-2 Antigen (Rapid) - Final Laboratory Results 12/27/20 07:22: Hemoglobin A1c 5.3 12/27/20 17:04: POC Glucose 161 H 12/27/20 22:03: POC Glucose 183 H 12/28/20 05:45: Sodium 138, Potassium 5.0, Chloride 106, Carbon Dioxide 26.0, Anion Gap 6, BUN 94 H, Creatinine 2.82 H, Estim Creat Clear Calc 24.45, Est GFR (MDRD) Af Amer 29 L, Est GFR (MDRD) Non-Af 24 L, BUN/Creatinine Ratio 33.3 H, Glucose 134 H, Calcium 8.3 L 12/28/20 06:30: POC Glucose 129 H 12/28/20 11:27: POC Glucose 152 H Current Medications Acetaminophen (Acetaminophen 325 Mg Tablet) 650 mg PO Q6H PRN PRN PRN Reason: Pain Score 1-10/Temp > 100.7 F Last Admin: 12/27/20 15:21 Dose: 650 mg Documented by: Al Hydroxide/Mg Hydroxide (Mag Hydrox/Al Hydrox/Simeth 30 Ml Udc) 30 ml PO Q6H PRN PRN PRN Reason: Gastric Burning Albuterol Sulfate (Albuterol 2.5 Mg/3 Ml Vial.Neb.) 2.5 mg INHALATION Q2H PRN PRN PRN Reason: Dyspnea, wheezing Albuterol/Ipratropium (Ipratropium/Albuterol Sulfate 3 Ml Ampul.Neb) 3 ml INHALATION Q6HWA.RT [facility] Last Admin: 12/27/20 19:47 Dose: 3 ml Documented by: Allopurinol (Allopurinol 100 Mg Tablet) 100 mg PO DAILYCM [facility] Last Admin: 12/28/20 09:50 Dose: 100 mg Documented by: Aspirin (Aspirin 81 Mg Tab.Chew) 81 mg PO DAILYCM [facility] Last Admin: 12/28/20 09:50 Dose: 81 mg Documented by: Atorvastatin Calcium (Atorvastatin Calcium 80 Mg Tablet) 80 mg PO QHS [facility] Last Admin: 12/27/20 22:08 Dose: 80 mg Documented by: Calamine/Phenol (Menthol/Lanolin/Calamine/Znox 113 Gm Tube) 1 applic TOPICAL BID [facility]; Protocol Last Admin: 12/28/20 09:50 Dose: 1 applic Documented by: Carvedilol (Carvedilol 25 Mg Tablet) 50 mg PO BID [facility] Last Admin: 12/28/20 09:48 Dose: 50 mg Documented by: Clonidine (Clonidine Hcl 0.1 Mg Tablet) 0.3 mg PO BID [facility] Last Admin: 12/28/20 09:48 Dose: 0.3 mg Documented by: Fluticasone Propionate (Fluticasone 0.05% 1 Amenia Nasal.Sry) 2 spray NASAL DAILY [facility] Last Admin: 12/28/20 09:52 Dose: 2 spray Documented by: Furosemide (Furosemide 40 Mg/4 Ml Vial) 40 mg IV Q8 [facility] Guaifenesin (Guaifenesin 10 Ml Udc (200mg/10ml)) 20 ml PO Q4H PRN PRN PRN Reason: COUGH Heparin Sodium (Porcine) (Heparin Injection (Vial) 5,000 Unit/Ml Vial) 5,000 unit SC Q12 [facility] Last Admin: 12/28/20 09:54 Dose: 5,000 unit Documented by: Hydralazine HCl (Hydralazine 25 Mg Tablet) 25 mg PO TID [facility] Last Admin: 12/28/20 06:32 Dose: Not Given Documented by: Hydralazine HCl (Hydralazine 20 Mg/Ml Vial) 10 mg IV Q4H PRN PRN PRN Reason: SBP > 160 Insulin Glargine (Insulin Glargine 100 Units/Ml Pen) 30 units SC DINNER [facility] Last Admin: 12/27/20 17:08 Dose: 30 u Documented by: Insulin Glargine (Insulin Glargine 100 Units/Ml Pen) 30 units SC BREAKFAST [facility] Last Admin: 12/28/20 09:48 Dose: 30 u Documented by: Insulin Human Lispro (Insulin Lispro 100 Unit/Ml Insuln.Pen) 0 unit SC ACHS [facility]; Protocol Last Admin: 12/28/20 11:30 Dose: 1 u Documented by: Isosorbide Mononitrate (Isosorbide Mononitrate 120 Mg Tablet) 120 mg PO DAILY [facility] Last Admin: 12/28/20 09:54 Dose: 120 mg Documented by: Melatonin (Melatonin 3 Mg Tablet) 3 mg PO QHS PRN PRN PRN Reason: INSOMNIA Morphine Sulfate (Morphine 2 Mg/Ml Syringe) 2 mg IV Q3H PRN PRN PRN Reason: Pain Score 6-10 Nitroglycerin (Nitroglycerin (Inpatient Use) 0.4 Mg Tab.Subl) 0.4 mg SL Q5M PRN PRN Reason: CARDIAC/CHEST PAIN Nystatin (Nystatin Powder 15gm Bottle) 1 applic TOPICAL TID [facility]; Protocol Last Admin: 12/28/20 06:32 Dose: 1 applic Documented by: Ondansetron HCl (Ondansetron 4 Mg/2 Ml Vial) 4 mg IV Q8H PRN PRN PRN Reason: NAUSEA/VOMITING Polyethylene Glycol (Polyethylene Glycol 3350 17 Gm Packet) 17 gm PO DAILY [facility] Last Admin: 12/28/20 09:58 Dose: Not Given Documented by: Prochlorperazine Edisylate (Prochlorperazine 10 Mg/2 Ml Vial) 5 mg IV Q4H PRN PRN PRN Reason: Breakthrough Nausea/Vomiting Senna/Docusate Sodium (Senna/Docusate Sodium 1 Tablet) 2 tablet PO BID [facility] Last Admin: 12/28/20 09:53 Dose: 2 tablet Documented by: Sodium Chloride (0.9% Saline Lock 10 Ml Syringe) 10 - 40 ml IV UD PRN PRN Reason: SALINE FLUSH Last Admin: 12/27/20 15:21 Dose: 10 ml Documented by: Tamsulosin HCl (Tamsulosin Hcl 0.4 Mg Capsule) 0.4 mg PO DAILY@1730 [facility] Last Admin: 12/27/20 17:09 Dose: 0.4 mg Documented by: Throat Lozenges (Benzocaine/Menthol 1 Lozenge) 1 lozenge MUCOUS MEM Q2H PRN PRN PRN Reason: SORE THROAT Addendum: Dr. Harrington I personally examined the patient and reviewed the chart. I agree with the above. 70-year-old male presents to the hospital with worsening shortness of breath. He is found to have acute on chronic diastolic CHF exacerbation. Continue with IV Lasix and will wean off oxygen as able. His echocardiogram on October 10, 2020 demonstrated an EF of 65% with an RVSP of 63 mmHg. He also has CKD 4 and his renal function is improving with the diuresis. We will continue to monitor make adjustments as necessary. 12/28/2020: Feels little bit better today, still on a Ventimask. We will continue with IV Lasix for his severe pulmonary hypertension diastolic CHF. He does need to get his fistula resurfaced so he could be initiated on dialysis but I do not think he has gotten around this yet. On his previous discharge to the transitional care unit he was only on 2 L nasal cannula therefore will likely need to obtain a ambulatory pulse ox prior to discharge to see what his new oxygen level is. Also reiterate that he needs to get his fissure resurfaced so he can be dialyzed. Inpatient E&M: [id number] [facility] L2
[2020-12-28] MEDS: Insulin Lispro 100 UNIT/ML INSULN.PEN SC ×2 (11:30→16:28)
[2020-12-28 11:46] LABS: Bedside Glucose 152 mg/dL (70-110)
[2020-12-28] MEDS: Ipratropium/Albuterol Sulfate 3 ML AMPUL.NEB INHALATION ×2 (14:01→19:57)
[2020-12-28] MEDS: Furosemide 40 MG/4 ML Vial IV ×2 (14:06→21:27)
[2020-12-28] MEDS: hydrALAZINE 25 MG Tablet PO ×2 (14:07→21:25)
[2020-12-28] MEDS: 0.9% Saline Lock 10 ML Syringe IV (14:08)
[2020-12-28] MEDS: Tamsulosin HCl 0.4 MG Capsule PO (16:28)
[2020-12-28] MEDS: Acetaminophen 325 MG Tablet 650 MG PO ×2 (16:32→22:32)
[2020-12-28 17:25] LABS: Bedside Glucose 162 mg/dL (70-110)
[2020-12-28] MEDS: Atorvastatin Calcium 80 MG Tablet PO (21:27)
[2020-12-28 22:20] LABS: Bedside Glucose 106 mg/dL (70-110)
[2020-12-29] VITALS (24 sets, daily range): BP systolic 110–150; BP diastolic 39–55; PULSE 50–74; RESP 15–20; TEMP 36.3–37.1; O2SAT 94–100
[2020-12-29 03:11] LABS: Bedside Glucose 44 mg/dL (70-110)
[2020-12-29 03:11] LABS: Bedside Glucose 43 mg/dL (70-110)
[2020-12-29 05:25] LABS: Hematocrit 28.7 % (40-54); Hemoglobin 8.8 g/dL (13.0-16.5); Mean Corp Hgb Conc 30.7 g/dL (32-36); Mean Corpuscular Volume 101.1 fL (80-94); Mean Platelet Vol. 10.9 fl (6.2-12.0); POSITIVE COUNT YES; Platelet Count 84 K/mm3 (150-450); RBC Distribution Width CV 17.3 % (11.6-14.6); RBC Distribution Width SD 64.9 fl (35.1-43.9); Red Blood Count 2.84 M/mm3 (4.6-6.2); White Blood Count 7.3 K/mm3 (4.4-11.0)
[2020-12-29 05:38] LABS: Anion Gap 5 (5-15); BUN 97 mg/dL (7-18); BUN/Creat Ratio 30.7 RATIO (10-20); Calcium,Total 8.2 mg/dL (8.5-10.1); Chloride 105 mmol/L (98-107); Creatinine, Serum 3.16 mg/dL (0.70-1.30); EST Glomerular Filtration Rate 21 mL/min (>60); Est Glom Filt Rate - Afr Amer 25 mL/min (>60); Estimated Creatinine Clearance 21.82 ml/min; Glucose 51 mg/dL (74-106); Potassium 4.9 mmol/L (3.5-5.1); Sodium Level 136 mmol/L (136-145)
[2020-12-29] MEDS: Nystatin Powder 15gm Bottle 1 APPLIC TOPICAL ×3 (05:47→21:15)
--- NOTE | 2020-12-29 06:56 | CASEMGMT ---
Tuesday SW received a voice mail from [facility] and they are not able to accept patient. SW will talk with patient this am regarding a second choice. Gretel Butcher MSW CHETNA
[2020-12-29] MEDS: Furosemide 40 MG/4 ML Vial IV ×2 (06:57→15:05)
[2020-12-29] MEDS: Ipratropium/Albuterol Sulfate 3 ML AMPUL.NEB INHALATION ×3 (07:19→19:26)
[2020-12-29] MEDS: Allopurinol 100 MG Tablet PO (08:29)
[2020-12-29] MEDS: Aspirin 81 MG TAB.CHEW PO (08:29)
[2020-12-29 08:36] LABS: Bedside Glucose 143 mg/dL (70-110)
[2020-12-29 08:41] LABS: Bedside Glucose 45 mg/dL (70-110)
[2020-12-29 08:41] LABS: Bedside Glucose 69 mg/dL (70-110)
[2020-12-29 08:41] LABS: Bedside Glucose 46 mg/dL (70-110)
--- NOTE | 2020-12-29 09:43 | CASEMGMT ---
SW spoke with patient and let him know [facility] cannot accept him. He said his 2nd choice would be [facility]. SW told him SW will work on making referral. SW called [facility] and left message regarding referral and also faxed referral. Gretel BASILIO
[2020-12-29] MEDS: Acetaminophen 325 MG Tablet 650 MG PO ×2 (09:49→21:13)
[2020-12-29] MEDS: Senna/Docusate Sodium 1 Tablet 2 TABLET PO ×2 (09:49→21:12)
[2020-12-29] MEDS: Carvedilol 25 MG Tablet 50 MG PO ×2 (09:50→22:04)
[2020-12-29] MEDS: cloNIDine HCl 0.1 MG Tablet 0.3 MG PO ×2 (09:50→21:09)
[2020-12-29] MEDS: Heparin Injection (Vial) 5,000 UNIT/ML VIAL 5000 UNIT SC ×2 (09:50→21:10)
[2020-12-29] MEDS: Fluticasone 0.05% 1 SPRAY NASAL.SRY 2 SPRAY NASAL (09:56)
[2020-12-29] MEDS: Menthol/Lanolin/Calamine/Znox 113 GM Tube 1 APPLIC TOPICAL ×2 (09:56→21:09)
--- NOTE | 2020-12-29 10:09 | NURSING ---
wound photo: left lower leg
--- NOTE | 2020-12-29 10:10 | NURSING ---
wound photo: left lower leg
--- NOTE | 2020-12-29 10:11 | NURSING ---
wound photo: right lower leg
--- NOTE | 2020-12-29 10:59 | CASEMGMT ---
TRACY received a voice mail from [facility] with [facility] and they can accept patient. SW notified printing plate clerk, Nurse Practitioner, and patient. Plan: d/c to [facility] under skilled level of care. Gretel BASILIO
[2020-12-29] MEDS: Cefazolin 1 GM/50 ML BAG IV ×2 (11:15→21:21)
[2020-12-29] MEDS: Insulin Lispro 100 UNIT/ML INSULN.PEN SC ×3 (11:40→21:19)
[2020-12-29 12:01] LABS: Bedside Glucose 190 mg/dL (70-110)
--- NOTE | 2020-12-29 12:42 | PN_ITS ---
<JonyMeghann RESERVATIONS AND TICKETING AGENT - Last Filed: 12/29/20 15:32> Patient Problems: Active and Suspected Problems (Last Reviewed 10/09/20 @ 15:[address] Destin bell DO) Hypoxia (Acute) Acute on chronic diastolic congestive heart failure (Acute) Subjective: Patient seen and examined. Breathing improved, oxygen remained stable on 2 L nasal cannula. Lower extremities with increased redness, warmth. Initiated on IV antibiotics. Patient denies fever, chills. - Physical Exam Vitals/I&O's: Vital Signs Temp Pulse Resp BP Pulse Ox 98.6 F 72 19 H 150/55 H 97 12/29/20 11:45 12/29/20 11:45 12/29/20 11:45 12/29/20 11:45 12/29/20 11:45 Oxygen Flow Rate (L/min) 2 Oxygen Delivery Method Nasal Cannula Weight: 335 lb 5.169 oz Body Mass Index (BMI) 0.0 Finger Stick Blood Glucose 131 Intake and Output for Last 24 Hours 12/27/20 12/28/20 12/29/20 23:59 23:59 23:59 Intake Total 50 / 250 700 / 700 350 / 350 Balance 50 / 250 700 / 700 350 / 350 General: Alert, Oriented x3, Cooperative HEENT: Atraumatic, PERRLA, EOMI, Normocephalic Neck: Supple, No JVD, Negative Carotid Bruits Lungs: Clear to auscultation, Diminished Cardiovascular: Regular rate, No murmurs Abdomen: Bowel Sounds Present, Soft, Non Tender, Non-Distended Extremities: No clubbing, No cyanosis, Capillary Refill Less than 3 Seconds, Edema - Bilateral lower extremities, Rickey wraps in place Skin: - - Bilateral lower extremity venous stasis ulcerations with surrounding redness and warmth, worsened from previous assessment Musculoskeletal: No Tenderness to Palpation of Joints or Extremities Neurological: Cranial nerves II-XII grossly intact, Neuro grossly intact Psych/Mental Status: Normal Affect, Appropriate Laboratory Results 12/27/20 07:56: POC Glucose 43 L* 12/27/20 07:58: POC Glucose 44 L* 12/28/20 16:25: POC Glucose 162 H 12/28/20 22:12: POC Glucose 106 12/29/20 05:18: WBC 7.3, RBC 2.84 L, Hgb 8.8 L, Hct 28.7 L, MCV 101.1 H, MCH 31.0, MCHC 30.7 L, RDW Std Deviation 64.9 H, RDW Coeff of Gina 17.3 H, Plt Count 84 L, MPV 10.9 12/29/20 05:18: Sodium 136, Potassium 4.9, Chloride 105, Carbon Dioxide 26.0, Anion Gap 5, BUN 97 H, Creatinine 3.16 H, Estim Creat Clear Calc 21.82, Est GFR (MDRD) Af Amer 25 L, Est GFR (MDRD) Non-Af 21 L, BUN/Creatinine Ratio 30.7 H, Glucose 51 L, Calcium 8.2 L 12/29/20 06:54: POC Glucose 45 L 12/29/20 07:04: POC Glucose 46 L 12/29/20 07:16: POC Glucose 69 L 12/29/20 08:13: POC Glucose 143 H 12/29/20 09:00: S.aureus Protein A PCR Pending, MRSA (PCR) Pending 12/29/20 11:38: POC Glucose 190 H Current Medications Acetaminophen (Acetaminophen 325 Mg Tablet) 650 mg PO Q6H PRN PRN PRN Reason: Pain Score 1-10/Temp > 100.7 F Last Admin: 12/29/20 09:49 Dose: 650 mg Documented by: Al Hydroxide/Mg Hydroxide (Mag Hydrox/Al Hydrox/Simeth 30 Ml Udc) 30 ml PO Q6H PRN PRN PRN Reason: Gastric Burning Albuterol Sulfate (Albuterol 2.5 Mg/3 Ml Vial.Neb.) 2.5 mg INHALATION Q2H PRN PRN PRN Reason: Dyspnea, wheezing Albuterol/Ipratropium (Ipratropium/Albuterol Sulfate 3 Ml Ampul.Neb) 3 ml INHALATION Q6HWA.RT [facility] Last Admin: 12/29/20 07:19 Dose: 3 ml Documented by: Allopurinol (Allopurinol 100 Mg Tablet) [facility] Last Admin: 12/29/20 08:29 Dose: 100 mg Documented by: Aspirin (Aspirin 81 Mg Tab.Chew) 81 [facility] Last Admin: 12/29/20 08:29 Dose: 81 mg Documented by: Atorvastatin Calcium (Atorvastatin Calcium 80 Mg Tablet) 80 mg PO QHS [facility] Last Admin: 12/28/20 21:27 Dose: 80 mg Documented by: Calamine/Phenol (Menthol/Lanolin/Calamine/Znox 113 Gm Tube) 1 applic TOPICAL BID [facility]; Protocol Last Admin: 12/29/20 09:56 Dose: 1 applic Documented by: Carvedilol (Carvedilol 25 Mg Tablet) 50 mg PO BID [facility] Last Admin: 12/29/20 09:50 Dose: 50 mg Documented by: Clonidine (Clonidine Hcl 0.1 Mg Tablet) 0.3 mg PO BID [facility] Last Admin: 12/29/20 09:50 Dose: 0.3 mg Documented by: Fluticasone Propionate (Fluticasone 0.05% 1 [place] Nasal.Sry) 2 spray NASAL DAILY [facility] Last Admin: 12/29/20 09:56 Dose: 2 spray Documented by: Furosemide (Furosemide 40 Mg/4 Ml Vial) 40 mg IV Q8 [facility] Last Admin: 12/29/20 06:57 Dose: 40 mg Documented by: Guaifenesin (Guaifenesin 10 Ml Udc (200mg/10ml)) 20 ml PO Q4H PRN PRN PRN Reason: COUGH Heparin Sodium (Porcine) (Heparin Injection (Vial) 5,000 Unit/Ml Vial) 5,000 unit SC Q12 [facility] Last Admin: 12/29/20 09:50 Dose: 5,000 unit Documented by: Hydralazine HCl (Hydralazine 25 Mg Tablet) 25 mg PO TID [facility] Last Admin: 12/29/20 05:48 Dose: Not Given Documented by: Hydralazine HCl (Hydralazine 20 Mg/Ml Vial) 10 mg IV Q4H PRN PRN PRN Reason: SBP > 160 Cefazolin Sodium () 1 gm in 50 mls @ 100 mls/hr IV Q12 [facility] Last Infusion: 12/29/20 12:00 Dose: Infused Documented by: Insulin Glargine (Insulin Glargine 100 Units/Ml Pen) 30 units SC DINNER [facility] Last Admin: 12/28/20 16:27 Dose: 30 u Documented by: Insulin Glargine (Insulin Glargine 100 Units/Ml Pen) 30 units SC BREAKFAST [facility] Last Admin: 12/29/20 09:09 Dose: Not Given Documented by: Insulin Human Lispro (Insulin Lispro 100 Unit/Ml Insuln.Pen) 0 unit SC ACHS [facility]; Protocol Last Admin: 12/29/20 11:40 Dose: 2 u Documented by: Isosorbide Mononitrate (Isosorbide Mononitrate 120 Mg Tablet) 120 mg PO DAILY [facility] Last Admin: 12/29/20 09:49 Dose: 120 mg Documented by: Melatonin (Melatonin 3 Mg Tablet) 3 mg PO QHS PRN PRN PRN Reason: INSOMNIA Morphine Sulfate (Morphine 2 Mg/Ml Syringe) 2 mg IV Q3H PRN PRN PRN Reason: Pain Score 6-10 Nitroglycerin (Nitroglycerin (Inpatient Use) 0.4 Mg Tab.Subl) 0.4 mg SL Q5M PRN PRN Reason: CARDIAC/CHEST PAIN Nystatin (Nystatin Powder 15gm Bottle) 1 applic TOPICAL TID [facility]; Protocol Last Admin: 12/29/20 05:47 Dose: 1 applic Documented by: Ondansetron HCl (Ondansetron 4 Mg/2 Ml Vial) 4 mg IV Q8H PRN PRN PRN Reason: NAUSEA/VOMITING Polyethylene Glycol (Polyethylene Glycol 3350 17 Gm Packet) 17 gm PO DAILY [facility] Last Admin: 12/29/20 09:52 Dose: Not Given Documented by: Prochlorperazine Edisylate (Prochlorperazine 10 Mg/2 Ml Vial) 5 mg IV Q4H PRN PRN PRN Reason: Breakthrough Nausea/Vomiting Senna/Docusate Sodium (Senna/Docusate Sodium 1 Tablet) 2 tablet PO BID [facility] Last Admin: 12/29/20 09:49 Dose: 2 tablet Documented by: Sodium Chloride (0.9% Saline Lock 10 Ml Syringe) 10 - 40 ml IV UD PRN PRN Reason: SALINE FLUSH Last Admin: 12/28/20 14:08 Dose: 10 ml Documented by: Tamsulosin HCl (Tamsulosin Hcl 0.4 Mg Capsule) 0.4 mg PO DAILY@1730 [facility] Last Admin: 12/28/20 16:28 Dose: 0.4 mg Documented by: Throat Lozenges (Benzocaine/Menthol 1 Lozenge) 1 lozenge MUCOUS MEM Q2H PRN PRN PRN Reason: SORE THROAT Medical Necessity - Tobacco Use Smoking Status: Former smoker Tobacco Use: Non-smoker Assessment/Plan All Active Problems (Last Reviewed 10/09/20 @ 15:[address] Destin Cain, DO) (HFpEF) heart failure with preserved ejection fraction (Acute) Debility (Acute) Hypoxia (Acute) Acute on chronic diastolic congestive heart failure (Acute) DEVAN (acute kidney injury) (Resolved) 1. Acute on chronic hypoxic respiratory failure secondary to acute on chronic heart failure with preserved ejection fraction-chest x-ray consistent with congestion. BNP 565. Strict I&O. Daily weight. Rickey wraps bilateral lower extremities. Patient recently discharged with 2 L nasal cannula supplemental oxygen. Continue supplement oxygen to maintain O2 at or above 90%. Echocardiogram 10/10/2020 demonstrates an EF of 65%, RVSP estimated to be 63 mmHg. Discontinue further IV Lasix. Transition to oral Lasix 40 mg twice daily. 2. Chronic lymphedema, acutely worsened with chronic lower extremity venous stasis ulcerations and associated cellulitis-follows with wound center. Rickey wraps ordered. Wound RN consult. Due to worsening appearance, begin IV cefazolin. Wound cultures ordered. 3. Chronic kidney disease stage IV-at baseline however IV Lasix discontinued due to increasing creatinine. Trend BMP. 4. Chronic thrombocytopenia-stable. 5. Type 2 diabetes [id number] with sliding scale insulin. Continue home insulin regimen. 6. Hypertension-stable, continue carvedilol, hydralazine, isosorbide. 7. Hyperlipidemia-continue statin. 8. Chronic anemia/anemia of chronic disease/iron deficiency anemia-at baseline, outpatient iron infusions. 9. Gout-on allopurinol. 10. Former tobacco use-encouraged continued cessation. 11. IMAN-continue home CPAP regimen. 12. BPH-continue Flomax. 13. Morbid obesity-encouraged diet lifestyle modifications. DVT prophylaxis-Heparin subcu Discharge planning: Anticipate discharge to SNF 12/30/2020. This patient was seen by SHUN Allen under the supervision of Dr. Harrington. <Shaun Harrington F - Last Filed: 12/29/20 15:42> - Physical Exam Vitals/I&O's: Vital Signs Temp Pulse Resp BP Pulse Ox 98.6 F 66 16 122/42 H 97 12/29/20 11:45 12/29/20 15:04 12/29/20 13:32 12/29/20 15:04 12/29/20 11:45 Oxygen Flow Rate (L/min) 2 Oxygen Delivery Method Nasal Cannula Weight: 335 lb 5.169 oz Body Mass Index (BMI) 0.0 Finger Stick Blood Glucose 131 Intake and Output for Last 24 Hours 12/27/20 12/28/20 12/29/20 23:59 23:59 23:59 Intake Total 50 / 250 700 / 700 350 / 350 Balance 50 / 250 700 / 700 350 / 350 Microbiology Past 72 Hours 12/29/20 09:00 Wound - Leg, Left Gram Stain - Final Laboratory Results 12/27/20 07:56: POC Glucose 43 L* 12/27/20 07:58: POC Glucose 44 L* 12/28/20 16:25: POC Glucose 162 H 12/28/20 22:12: POC Glucose 106 12/29/20 05:18: WBC 7.3, RBC 2.84 L, Hgb 8.8 L, Hct 28.7 L, MCV 101.1 H, MCH 31.0, MCHC 30.7 L, RDW Std Deviation 64.9 H, RDW Coeff of Gina 17.3 H, Plt Count 84 L, MPV 10.9 12/29/20 05:18: Sodium 136, Potassium 4.9, Chloride 105, Carbon Dioxide 26.0, Anion Gap 5, BUN 97 H, Creatinine 3.16 H, Estim Creat Clear Calc 21.82, Est GFR (MDRD) Af Amer 25 L, Est GFR (MDRD) Non-Af 21 L, BUN/Creatinine Ratio 30.7 H, Glucose 51 L, Calcium 8.2 L 12/29/20 06:54: POC Glucose 45 L 12/29/20 07:04: POC Glucose 46 L 12/29/20 07:16: POC Glucose 69 L 12/29/20 08:13: POC Glucose 143 H 12/29/20 09:00: S.aureus Protein A PCR POSITIVE H, MRSA (PCR) Negative 12/29/20 11:38: POC Glucose 190 H Current Medications Acetaminophen (Acetaminophen 325 Mg Tablet) 650 mg PO Q6H PRN PRN PRN Reason: Pain Score 1-10/Temp > 100.7 F Last Admin: 12/29/20 09:49 Dose: 650 mg Documented by: Al Hydroxide/Mg Hydroxide (Mag Hydrox/Al Hydrox/Simeth 30 Ml Udc) 30 ml PO Q6H PRN PRN PRN Reason: Gastric Burning Albuterol Sulfate (Albuterol 2.5 Mg/3 Ml Vial.Neb.) 2.5 mg INHALATION Q2H PRN PRN PRN Reason: Dyspnea, wheezing Albuterol/Ipratropium (Ipratropium/Albuterol Sulfate 3 Ml Ampul.Neb) 3 ml INHALATION Q6HWA.RT [facility] Last Admin: 12/29/20 13:32 Dose: 3 ml Documented by: Allopurinol (Allopurinol 100 Mg Tablet) 100 mg PO DAILYCM [facility] Last Admin: 12/29/20 08:29 Dose: 100 mg Documented by: Aspirin (Aspirin 81 Mg Tab.Chew) [facility] Last Admin: 12/29/20 08:29 Dose: 81 mg Documented by: Atorvastatin Calcium (Atorvastatin Calcium 80 Mg Tablet) 80 mg PO QHS [facility] Last Admin: 12/28/20 21:27 Dose: 80 mg Documented by: Calamine/Phenol (Menthol/Lanolin/Calamine/Znox 113 Gm Tube) 1 applic TOPICAL BID [facility]; Protocol Last Admin: 12/29/20 09:56 Dose: 1 applic Documented by: Carvedilol (Carvedilol 25 Mg Tablet) 50 mg PO BID [facility] Last Admin: 12/29/20 09:50 Dose: 50 mg Documented by: Clonidine (Clonidine Hcl 0.1 Mg Tablet) 0.3 mg PO BID [facility] Last Admin: 12/29/20 09:50 Dose: 0.3 mg Documented by: Fluticasone Propionate (Fluticasone 0.05% 1 [place] Nasal.Sry) 2 spray NASAL DAILY [facility] Last Admin: 12/29/20 09:56 Dose: 2 spray Documented by: Furosemide (Furosemide 40 Mg Tablet) 40 mg PO BID@1000,1800 [facility] Guaifenesin (Guaifenesin 10 Ml Udc (200mg/10ml)) 20 ml PO Q4H PRN PRN PRN Reason: COUGH Heparin Sodium (Porcine) (Heparin Injection (Vial) 5,000 Unit/Ml Vial) 5,000 unit SC Q12 [facility] Last Admin: 12/29/20 09:50 Dose: 5,000 unit Documented by: Hydralazine HCl (Hydralazine 25 Mg Tablet) 25 mg PO TID [facility] Last Admin: 12/29/20 15:04 Dose: 25 mg Documented by: Hydralazine HCl (Hydralazine 20 Mg/Ml Vial) 10 mg IV Q4H PRN PRN PRN Reason: SBP > 160 Cefazolin Sodium () 1 gm in 50 mls @ 100 mls/hr IV Q12 [facility] Last Infusion: 12/29/20 12:00 Dose: Infused Documented by: Insulin Glargine (Insulin Glargine 100 Units/Ml Pen) 30 units SC DINNER [facility] Last Admin: 12/28/20 16:27 Dose: 30 u Documented by: Insulin Glargine (Insulin Glargine 100 Units/Ml Pen) 30 units SC BREAKFAST [facility] Last Admin: 12/29/20 09:09 Dose: Not Given Documented by: Insulin Human Lispro (Insulin Lispro 100 Unit/Ml Insuln.Pen) 0 unit SC ACHS [facility]; Protocol Last Admin: 12/29/20 11:40 Dose: 2 u Documented by: Isosorbide Mononitrate (Isosorbide Mononitrate 120 Mg Tablet) 120 mg PO DAILY [facility] Last Admin: 12/29/20 09:49 Dose: 120 mg Documented by: Melatonin (Melatonin 3 Mg Tablet) 3 mg PO QHS PRN PRN PRN Reason: INSOMNIA Morphine Sulfate (Morphine 2 Mg/Ml Syringe) 2 mg IV Q3H PRN PRN PRN Reason: Pain Score 6-10 Nitroglycerin (Nitroglycerin (Inpatient Use) 0.4 Mg Tab.Subl) 0.4 mg SL Q5M PRN PRN Reason: CARDIAC/CHEST PAIN Nystatin (Nystatin Powder 15gm Bottle) 1 applic TOPICAL TID [facility]; Protocol Last Admin: 12/29/20 15:05 Dose: 1 applic Documented by: Ondansetron HCl (Ondansetron 4 Mg/2 Ml Vial) 4 mg IV Q8H PRN PRN PRN Reason: NAUSEA/VOMITING Polyethylene Glycol (Polyethylene Glycol 3350 17 Gm Packet) 17 gm PO DAILY [facility] Last Admin: 12/29/20 09:52 Dose: Not Given Documented by: Prochlorperazine Edisylate (Prochlorperazine 10 Mg/2 Ml Vial) 5 mg IV Q4H PRN PRN PRN Reason: Breakthrough Nausea/Vomiting Senna/Docusate Sodium (Senna/Docusate Sodium 1 Tablet) 2 tablet PO BID [facility] Last Admin: 12/29/20 09:49 Dose: 2 tablet Documented by: Sodium Chloride (0.9% Saline Lock 10 Ml Syringe) 10 - 40 ml IV UD PRN PRN Reason: SALINE FLUSH Last Admin: 12/29/20 15:05 Dose: 20 ml Documented by: Tamsulosin HCl (Tamsulosin Hcl 0.4 Mg Capsule) 0.4 mg PO DAILY@1730 [facility] Last Admin: 12/28/20 16:28 Dose: 0.4 mg Documented by: Throat Lozenges (Benzocaine/Menthol 1 Lozenge) 1 lozenge MUCOUS MEM Q2H PRN PRN PRN Reason: SORE THROAT Addendum: Dr. Harrington I personally examined the patient and reviewed the chart. I agree with the above. 70-year-old male presents to the hospital with worsening shortness of breath. He is found to have acute on chronic diastolic CHF exacerbation. Continue with IV Lasix and will wean off oxygen as able. His echocardiogram on October 10, 2020 demonstrated an EF of 65% with an RVSP of 63 mmHg. He also has CKD 4 and his renal function is improving with the diuresis. We will continue to monitor make adjustments as necessary. 12/28/2020: Feels little bit better today, still on a Ventimask. We will continue with IV Lasix for his severe pulmonary hypertension diastolic CHF. He does need to get his fistula resurfaced so he could be initiated on dialysis but I do not think he has gotten around this yet. On his previous discharge to the transitional care unit he was only on 2 L nasal cannula therefore will likely need to obtain a ambulatory pulse ox prior to discharge to see what his new oxygen level is. Also reiterate that he needs to get his fissure resurfaced so he can be dialyzed. 12/29/2020: Breathing better today, per the nursing staff they have been placing on the Ventimask for comfort reasons and not because of the need for oxygen. He is currently back down to his 2 L nasal cannula therefore can back down on his diuretics as well to p.o. He does have left lower extremity redness consistent with cellulitis also start him on Ancef. Disposition is likely to senior living facility secondary skilled need. Inpatient E&M: [id number] Subs Hosp L2
--- NOTE | 2020-12-29 13:11 | CASEMGMT ---
Pt qualifies for palliative c/s per [facility] palliative screening tool and Dr. Harrington agreeable. Referral faxed to palliative and message left regarding referral. Kay LOPEZ CM
[2020-12-29 13:22] LABS: M R Staph aureus DNA By PCR Negative (Negative)
[2020-12-29 13:23] LABS: Probe Check PASS; Staph aureus DNA By PCR POSITIVE (Negative)
[2020-12-29] MEDS: hydrALAZINE 25 MG Tablet PO ×2 (15:04→21:09)
[2020-12-29] MEDS: 0.9% Saline Lock 10 ML Syringe IV ×2 (15:05→21:21)
[2020-12-29] MEDS: Tamsulosin HCl 0.4 MG Capsule PO (16:49)
[2020-12-29 18:31] LABS: Bedside Glucose 231 mg/dL (70-110)
[2020-12-29] MEDS: Atorvastatin Calcium 80 MG Tablet PO (21:12)
[2020-12-29 21:30] LABS: Bedside Glucose 208 mg/dL (70-110)
[2020-12-30] VITALS (15 sets, daily range): BP systolic 118–143; BP diastolic 39–52; PULSE 52–73; RESP 12–20; TEMP 36.5–36.7; O2SAT 93–100
[2020-12-30] MEDS: Nystatin Powder 15gm Bottle 1 APPLIC TOPICAL ×2 (05:56→16:19)
[2020-12-30] MEDS: hydrALAZINE 25 MG Tablet PO ×2 (05:56→15:11)
[2020-12-30 06:12] LABS: Hemoglobin 9.1 g/dL (13.0-16.5); Mean Corp Hgb Conc 30.3 g/dL (32-36); Mean Corpuscular Hgb 31.5 pg (27.0-32.0); Mean Corpuscular Volume 103.8 fL (80-94); Mean Platelet Vol. 10.4 fl (6.2-12.0); POSITIVE COUNT YES; POSITIVE MORPHOLOGY YES; Platelet Count 92 K/mm3 (150-450); RBC Distribution Width CV 17.2 % (11.6-14.6); RBC Distribution Width SD 66.4 fl (35.1-43.9); Red Blood Count 2.89 M/mm3 (4.6-6.2); White Blood Count 5.9 K/mm3 (4.4-11.0)
[2020-12-30 06:16] LABS: Scan Indicated on CBC? Y/N YES- FLAGS NOTED
[2020-12-30 06:59] LABS: Anion Gap 7 (5-15); BUN 103 mg/dL (7-18); BUN/Creat Ratio 32.7 RATIO (10-20); Calcium,Total 8.3 mg/dL (8.5-10.1); Chloride 104 mmol/L (98-107); Creatinine, Serum 3.15 mg/dL (0.70-1.30); EST Glomerular Filtration Rate 21 mL/min (>60); Est Glom Filt Rate - Afr Amer 25 mL/min (>60); Estimated Creatinine Clearance 21.89 ml/min; Glucose 123 mg/dL (74-106); Potassium 5.2 mmol/L (3.5-5.1); Sodium Level 135 mmol/L (136-145)
[2020-12-30 07:00] LABS: Bedside Glucose 123 mg/dL (70-110)
[2020-12-30] MEDS: Ipratropium/Albuterol Sulfate 3 ML AMPUL.NEB INHALATION ×2 (07:17→13:49)
--- NOTE | 2020-12-30 09:00 | CON.PCM_ITS ---
Problem List (1) (HFpEF) heart failure with preserved ejection fraction Status: Acute Qualifiers: (2) Chronic diastolic (congestive) heart failure Status: Chronic (3) Chronic kidney disease (CKD) Status: Chronic Qualifiers: Chronic kidney disease stage: stage 4 (severe) Qualified Code(s): N18.4 - Chronic kidney disease, stage 4 (severe) (4) Debility Status: Acute (5) Hypoxia Status: Acute (6) Acute on chronic diastolic congestive heart failure Status: Acute (7) Diabetes mellitus Status: Chronic (8) Chronic kidney disease, stage 3 Status: Chronic (9) Chronic obstructive pulmonary disease Status: Chronic Qualifiers: COPD type: unspecified COPD Qualified Code(s): J44.9 - Chronic obstructive pulmonary disease, unspecified (10) Gout Status: Chronic (11) Vitamin D deficiency Status: Chronic (12) Pulmonary hypertension Status: Chronic (13) Venous stasis ulcer of left lower extremity Status: Chronic (14) Chronic respiratory failure with hypoxia Status: Chronic (15) Morbid obesity Status: Chronic (16) IMAN (obstructive sleep apnea) Status: Chronic (17) Secondary pulmonary arterial hypertension Status: Chronic (18) Right bundle branch block (RBBB) Status: Chronic (19) Essential (primary) hypertension Status: Chronic (20) Hyperlipidemia Status: Chronic Qualifiers: (21) Lymphedema of both lower extremities Status: Chronic History of Present Illness Date of Consult: 12/30/20 Reason for Consult: Palliative consult for symptom management related to CHF, ESRD Requesting physician: [] Primary care physician: Dr. Jean-Claude Garcia MD - History of Present Illness The patient is a 70 year old morbidly obese M [] who was referred to palliative care due to positives on [facility] screening tool for possible palliative management related to Dastolic CHF,ESRD, COPD and lymphedema and accompanying venous stasis wounds. See below for extensive list of co-morbidities. He presented to the ER with shortness of breath from the wound care center. Staff had increased oxygen to 4 L but patient continued to decompensate. He was recently discharged by TCU stay from 11/07/2020 through 12/17/2020. He was home for approximately a week before noticing the worsening of shortness of breath that was recognized with trip to [facility] Center. Noted to have increased lower extremity edema with weeping and anasarca. He was placed on a Ventimask. Work up in the Ed revealed: CBC with WC 6.6, hemoglobin 10.4, platelet 123 with lymphopenia notably, BMP with potassium 5.3, BUN/creatinine 9/3.04, glucose 111, troponin less than 0.015, BNP 565.4, rapid Covid antigen negative, chest x-ray with worsening atelectasis or infiltrate and pleural effusion in the lower right hemithorax, EKG w/ SR without acute evidence of ischemia w/ chronic RBBB. and admitted with IV Lasix 60 q 8 hours. Most recent ECHO noted 10/09/2020 with grossly normal LV size, wall motion and systolic function, EF 65%, mildly enlarged LA and RA, trivial MVI, mild TVI, RVSP 63 mmHg consistent with pulmonary hypertension, evidence of diastolic dysfunction therefore was not repeated. Wound cultures were sent from [facility]LE and patient was started on IV Cefazolin. Creatinine function continued to decline to patient will be changed to Lasix 40 mg PO BID and plan is to discharge to the [place] today. Patient was seen today sitting up in bedside chair with O2 per nasal cannula at (2 L). Morbidly obese, with facial hair and extremely hard of hearing due to not wearing his hearing aids, Alert and oriented x4 with conversational dyspnea after 6 to 7 words. Bilateral lower extremity lymphedema with Rickey wraps in place. Services explained and agrees to have [facility] follow at the [place] to help manage symptoms to increase quality of life. Realizes that he is unable to care for himself at home. States very dyspneic with any type of exertion, but is pretty comfortable at rest. States pain in legs is about a 2 out of 10, Currently uses Tylenol as needed which is effective. Has a left forearm fistula with active use to patient not requiring Dilayisis at this time and fistula is reportedly to small to use. Reports that sister is his power of district attorney and that she is familiar with the [place] and will assist him. Denies any further complaints or concerns at this time. Patient Problems: Chronic Problems (Last Reviewed 10/09/20 @ 15:[address] Destin Cain, DO) Chronic diastolic (congestive) heart failure (Chronic) Chronic kidney disease (CKD) (Chronic) Diabetes mellitus (Chronic) Body mass index 45.0-49.9, adult (Chronic) Chronic kidney disease, stage 3 (Chronic) Chronic obstructive pulmonary disease (Chronic) Allergic rhinitis (Chronic) Gout (Chronic) Vitamin D deficiency (Chronic) Tinea corporis (Chronic) Pulmonary hypertension (Chronic) Venous stasis ulcer of left lower extremity (Chronic) Chronic respiratory failure with hypoxia (Chronic) Morbid obesity (Chronic) Anemia (Chronic) Renal failure (Chronic) Thrombocytopenia (Chronic) Diabetes mellitus, type II (Chronic) IMAN (obstructive sleep apnea) (Chronic) Chronic diastolic (congestive) heart failure (Chronic) Secondary pulmonary arterial hypertension (Chronic) Right bundle branch block (RBBB) (Chronic) Essential (primary) hypertension (Chronic) Hyperlipidemia (Chronic) Lymphedema of both lower extremities (Chronic) Surgical History: cataract, - - AVF left radiocephalic, nasal cyst removal. Psychiatric History: No pertinent psych hx Home Medications: Ambulatory Orders Medication Instructions Recorded Aspirin [Aspirin, Baby] 81 mg PO DAILY 03/03/15 Fluticasone 0.05% [Flonase Nasal 2 spray NASAL DAILY 12/31/15 [place]] Allopurinol [Zyloprim] 100 mg PO DAILYCM 03/03/19 Carvedilol [Coreg] 50 mg PO BID 03/03/19 Cholecalciferol (VIT D3) [Vitamin 1,000 unit PO SUWESA 03/03/19 D3] Clonidine HCl [Catapres] 0.3 mg PO BID 03/03/19 Isosorbide Mononitrate [Isosorbide 120 mg PO DAILY 03/03/19 Mononitrate ER] Umeclidinium Brm/Vilanterol Tr 1 puff IH DAILY 03/03/19 [Anoro Ellipta 62.5-25 Mcg INH] hydrALAZINE [Apresoline] 25 mg PO TID 03/03/19 atorvastatin 80 mg tablet 80 mg PO QHS #90 tab 04/04/19 Albuterol Inhaler [Ventolin Hfa] 2 puff INHALATION Q6H PRN PRN 04/27/19 Nitroglycerin (INPATIENT USE) 0.4 mg SUBLINGUAL Q5M PRN 09/19/20 [Nitrostat] Acetaminophen [Tylenol] 1,000 mg PO Q6H PRN PRN tab 12/10/20 Ondansetron [Zofran] 8 mg PO Q8H PRN PRN #90 tab 12/10/20 Furosemide [Lasix] 40 mg PO DAILY 12/25/20 Insulin Glargine [Lantus SoloStar 30 units SC BREAKFAST 12/25/20 Pen] Insulin Glargine [Lantus SoloStar 30 units SC DINNER 12/25/20 Pen] Insulin Lispro [Humalog KwikPen] 5 unit SC BREAKFAST 12/25/20 Insulin Lispro [Humalog KwikPen] 5 unit SC DINNER 12/25/20 Insulin Lispro [Humalog KwikPen] 5 unit SC LUNCH 12/25/20 Menthol/Lanolin/Calamine/Znox 1 applic TOPICAL BID 12/25/20 [Calmoseptine Ointment] Nystatin Powder [Mycostatin Powder] 1 applic TOPICAL TID 12/25/20 Polyethylene Glycol 3350 [Miralax] 17 gm PO DAILY PRN PRN 12/25/20 Senna/Docusate Sodium [Senokot-S] 2 tablet PO BID 12/25/20 Tamsulosin HCl [Flomax] 0.4 mg PO DAILY@1730 12/25/20 Allergies ARB-Angiotensin Receptor Antagonist Allergy (Verified 12/25/20 16:49) WORSENS RENAL FUNCTION WORSENS RENAL FUNCTION amoxicillin Adverse Reaction (Verified 12/25/20 16:49) Upset Stomach Sibling Family History: Family History (Last Reviewed 10/09/20 @ 15:[address] Destin Cain DO) Other Diabetes Heart disease Hypertension History Items: Heart Disease Paternal Family History: Family History (Last Reviewed 10/09/20 @ 15:[address] Destin Cain DO) Other Diabetes Heart disease Hypertension History Items: Cancer - Other with a history of possibly lymphoma., Diabetes Maternal Family History: Family History (Last Reviewed 10/09/20 @ 15:[address] Destin Cain DO) Other Diabetes Heart disease Hypertension History Items: Diabetes, Heart Disease, Hypertension - Social History Lives: Alone - Patient quit cigarette tobacco usage approximately 10 years prior with prior to this 1 pack/day since he had been a teenager. Smoking Status: Former smoker Tobacco Use: Non-smoker Alcohol: Rare Drugs: None Code Status: DNRCC-A - no intubation Review of Systems Constitutional: Reports: Weakness. Denies: Anorexia, Fever Cardiovascular: Reports: Edema, Orthopnea. Denies: Chest Pain, Chest Pressure Respiratory: Reports: Cough, Shortness of Breath, Shortness of breath at rest Gastrointestinal: Denies: Abdominal Pain, Constipation Genitourinary: Reports: Frequency. Denies: Dysuria, Hematuria Skin: Reports: Wounds - Follows Wound care center for stasis ulcers Psychiatric: Denies: Anxiety, Depression Physical Exam General: Alert, Oriented x3, Cooperative, - - morbidly obese HEENT: Atraumatic, EOMI Oral: Moist Mucosa Neck: No JVD Lungs: Diminished - in all boateng Cardiovascular: Regular rate, Regular Rhythm, Normal S1, Normal S2, - - Distant heart tones due to body habitus Abdomen: Bowel Sounds Present, Soft, Non Tender, Non-Distended, Obese Skin: Ulcer/ Wound, - - RICKEY wrapped BLE Neurological: Cranial nerves II-XII grossly intact Psych/Mental Status: Normal Affect, Appropriate, Alert and oriented to time, place, person, mood and affect Objective: Vital Signs Temp Pulse Resp BP Pulse Ox 97.9 F 67 16 143/39 H 98 12/30/20 08:15 12/30/20 08:15 12/30/20 08:15 12/30/20 08:15 12/30/20 08:15 Oxygen Flow Rate (L/min) 2 Oxygen Delivery Method Nasal Cannula Weight: 155.6 kg Body Mass Index (BMI) 0.0 Finger Stick Blood Glucose 131 Intake and Output for Last 24 Hours 12/28/20 12/29/20 12/30/20 23:59 23:59 23:59 Intake Total 700 / 700 1830 / 1830 250 / 250 Balance 700 / 700 1830 / 1830 250 / 250 Microbiology Past 72 Hours 12/29/20 09:00 Gram Stain - Final Wound - Leg, Left Laboratory Tests Past 24 Hrs 12/29/20 12/30/20 12/30/20 09:00 06:04 06:04 WBC 5.9 RBC 2.89 L Hgb 9.1 L Hct 30.0 L MCV 103.8 H MCH 31.5 MCHC 30.3 L RDW Std Deviation 66.4 H RDW Coeff of Gina 17.2 H Plt Count 92 L MPV 10.4 Differential Comment SEE COMMENT Sodium 135 L Potassium 5.2 H Chloride 104 Carbon Dioxide 24.0 Anion Gap 7 BUN 103 H* Creatinine 3.15 H Estim Creat Clear Calc 21.89 Est GFR (MDRD) Af Amer 25 L Est GFR (MDRD) Non-Af 21 L BUN/Creatinine Ratio 32.7 H Glucose 123 H Calcium 8.3 L S.aureus Protein A PCR POSITIVE H MRSA (PCR) Negative Assessment/Plan All Active Problems (Last Reviewed 10/09/20 @ 15:[address] Destin Cain, DO) (HFpEF) heart failure with preserved ejection fraction (Acute) Debility (Acute) Hypoxia (Acute) Acute on chronic diastolic congestive heart failure (Acute) DEVAN (acute kidney injury) (Resolved) Kavin Polanco is a 70-year-old male with diastolic CHF, COPD, and end-stage renal disease. He has agreed to palliative services and palliative will follow at the [place] facility and is as follows: 1) Dyspnea: To continue current therapies as ordered. Will monitor for increase fluid overload and work with PCP to control symptoms. 2) Debility: PT/OT at [facility] [place]. 3) Chronic pain: Appears to be in bilateral lower extremities related to chronic lymphedema and venous stasis ulcers. Continue care at the wound care center. Currently a 2/10 and managed well on Tylenol. Will monitor for increased pain need. 4) DM and other chronic conditions: Follow care with PCP Please contact [facility] at discharge Thank you for the opportunity to serve your patients! [facility] team [phone] Over 50% of the visit was at bedside discussing Palliative care and symptom control Time IN: 9:00AM Time Out: 10:00 AM
[2020-12-30] MEDS: Aspirin 81 MG TAB.CHEW PO (09:32)
[2020-12-30] MEDS: Furosemide 40 MG Tablet PO (09:33)
[2020-12-30] MEDS: Senna/Docusate Sodium 1 Tablet 2 TABLET PO (09:33)
[2020-12-30] MEDS: Allopurinol 100 MG Tablet PO (09:33)
[2020-12-30] MEDS: Acetaminophen 325 MG Tablet 650 MG PO (09:34)
[2020-12-30] MEDS: cloNIDine HCl 0.1 MG Tablet 0.3 MG PO (09:35)
[2020-12-30] MEDS: Heparin Injection (Vial) 5,000 UNIT/ML VIAL 5000 UNIT SC (09:36)
[2020-12-30] MEDS: Fluticasone 0.05% 1 SPRAY NASAL.SRY 2 SPRAY NASAL (09:38)
[2020-12-30] MEDS: Menthol/Lanolin/Calamine/Znox 113 GM Tube 1 APPLIC TOPICAL (09:47)
[2020-12-30] MEDS: 0.9% Saline Lock 10 ML Syringe IV (09:48)
[2020-12-30] MEDS: Cefazolin 1 GM/50 ML BAG IV (09:48)
--- NOTE | 2020-12-30 10:02 | VDLE_ITS ---
Reason For Study: PAIN RIGHT LEFT RT CFV Not visualized due to pannus. LT CFV is not visualized due to pannus. RT SFJ not visualized due to pannus. LT SFJ is not visualized due to pannus. RT FV is compressible, and fills with color LT FV is compressible and color filling proximally. proximally, but is not visualized for the RT Mid-Dist FV are poorly visualized and not remainder of the vessel. diagnostic for DVT. LT POPV is compressible and color filling RT PTV is compressible and color filling with with pulsatile flow noted. pulsatile flow noted . LT T/P Trunk is not well visualized. RT T/P trunk is not well visualized. LT PTV is compressible proximally and at RT PTV is compressible proximally and at ankle, the remainder of the vessel is not ankle, the remainder of the PTV are not visualized. visualized . LT PeroV is compressible at ankle but not RT PeroV is not visualized. visualized for the remainder of the vessel. RT GSV is compressible. Left GSV is compressible. Procedure Exam performed portable in patient room. This is a venous duplex using B-mode, color flow and spectral Doppler. The exam was of poor technical quality due to body habitus and chronic lymphedema.. A preliminary report was called and/or faxed to [facility]. VL/Venous Duplex US - Alexander Extrem Interpretation Summary This is a very limited examination of poor technical quality secondary to body habitus and chronic lymphedema No evidence for acute deep venous thrombosis bilateral lower extremities but li mited interpretation as noted in the report details. Pulsatile venous flow noted consistent with proximal venous hypertension or obs truction. Clinical correlation would be appropriate. Where visualized patent and compressible bilateral great saphenous veins Ordering Physician: Meghann Borges Referring Physician: JESUS WHITING Performed By: Mima Ho, RDCS, RVT
--- NOTE | 2020-12-30 10:02 | NURSING ---
pt refusing IV restart. primary RN made aware.
--- NOTE | 2020-12-30 10:12 | CASEMGMT ---
TRACY called Ninoska at [facility] and let her know patient will be coming today. Gretel Butcher LAMINATING MACHINE OPERATOR CHETNA
--- NOTE | 2020-12-30 10:13 | CASEMGMT ---
Call to [facility] to notify them that plan is for pt to go to [facility] today, voice understanding. Kay LOPEZ CM
--- NOTE | 2020-12-30 11:44 | PCM.EXTCARCO ---
- Diet 12/25/20 20:23 Diet: Cardiac: Calorie-Controlled Food consistency:: Regular Liquid Consistency:: Regular/Thin Fluid restriction:: 1500 mL How many daily calories?: 1800 calorie - Routine Orders/Code Status Enema Type: Fleetz Enema Frequency: Daily PRN Suppository Type: Dulcolax 10mg Suppository Frequency: Daily PRN O2 Liters per Minute: 2-4 O2 Frequency: Continuous Keep PO Greater than or Equal to (%): 90 Routine Lab Work: - - Weekly CBC, BMP Code Status: DNRCC-A - no intubation - Wound(s) Bilateral lower legs Wound Type: scattered weeping areas Dressing Change: Melgisorb - Suggestions for Active Care Change Position every (hours): 2 Times a day to sit in chair: 3 - Therapies Physical Therapy: Eval and Treat Occupational Therapy: Eval and Treat - Problem/Diagnosis (1) Chronic kidney disease (CKD) Status: Chronic Comment: Stage IV (2) Debility Status: Chronic (3) Acute on chronic diastolic congestive heart failure Status: Acute (4) Diabetes mellitus Status: Chronic Comment: Type 2 (5) Chronic obstructive pulmonary disease Status: Chronic (6) Venous stasis ulcer of left lower extremity Status: Chronic (7) Chronic respiratory failure with hypoxia Status: Chronic (8) IMAN (obstructive sleep apnea) Status: Chronic (9) Essential (primary) hypertension Status: Chronic (10) Hyperlipidemia Status: Chronic (11) Lymphedema of both lower extremities Status: Chronic - Allergies/Procedures Done in Hospital Allergies/Adverse Reactions: Allergies ARB-Angiotensin Receptor Antagonist Allergy (Verified 12/25/20 16:49) WORSENS RENAL FUNCTION WORSENS RENAL FUNCTION amoxicillin Adverse Reaction (Verified 12/25/20 16:49) Upset Stomach Procedures: None - Type of Care/Length of Stay Estimated LOS: Convalescent Care Less Than 30 days Type of Care Needed: Skilled Rehab Potential: Fair Prognosis: Fair - Additional Orders/Day of Discharge Additional Orders: Wash bilateral lower legs and feet daily with soap and water. Pat dry. Place Melgisorb to the weeping areas and cover with dry dressings. Wrap with Kerlix. Apply Rickey wraps from the base of the toes to just below the knees. H&P will serve as current which was dated: 12/25/20 Day of Discharge: 12/30/20 - Dietary and Speech Recommendations Dietitian Recommendations/Changes: continue cardiac, 1800 calorie controlled diet as ordered; 1500mL fluid restriction; recommend further restrictions for kidney function as indicated (if labs worsen/PO intake improves) - Follow Up Care Primary Care Physician: Jean-Claude Garcia MD [Primary Care Provider] - Please follow up with your Primary Care Physician in: 1 Week Please Follow Up With: Josué Caal CARPENTER REPAIRER, CARPENTER REPAIRER-C When: As scheduled, 01/14/21 Please Follow Up With: Clinic,Wound When: 1 Week Please Follow Up With: [facility] When: To follow at [facility]- established during admission
[2020-12-30] MEDS: Insulin Lispro 100 UNIT/ML INSULN.PEN SC ×2 (11:45→16:39)
[2020-12-30 11:50] LABS: Bedside Glucose 191 mg/dL (70-110)
--- NOTE | 2020-12-30 11:58 | DS.PCM_ITS ---
<JonyMeghann DREDGE ENGINEER - Last Filed: 12/30/20 12:06> Discharge Date and Diagnosis - Problem List Patient Problems: Active and Suspected Problems (Last Reviewed 10/09/20 @ 15:[address] Destin Cain DO) (HFpEF) heart failure with preserved ejection fraction (Acute) Hypoxia (Acute) Acute on chronic diastolic congestive heart failure (Acute) Date of Admission: 12/30/20 Date of Discharge: 12/30/20 - Primary Discharge Diagnosis Acute Problems: Active Problems (Last Reviewed 10/09/20 @ 15:[address] Destin Cain DO) 1. Acute on chronic hypoxic respiratory failure secondary to acute on chronic heart failure with preserved ejection fraction 2. Chronic lymphedema, acutely worsened with chronic lower extremity venous stasis ulcerations and associated cellulitis 3. Chronic kidney disease stage IV 4. Chronic thrombocytopenia 5. Type 2 diabetes mellitus 6. Hypertension 7. Hyperlipidemia 8. Chronic anemia/anemia of chronic disease/iron deficiency anemia 9. Gout 10. Former tobacco use 11. IMAN 12. BPH 13. Morbid obesity - Secondary Discharge Diagnosis Chronic Problems: Chronic Problems (Last Reviewed 10/09/20 @ 15:[address] Destin Cain DO) Chronic diastolic (congestive) heart failure (Chronic) Chronic kidney disease (CKD) (Chronic) Stage IV Debility (Chronic) Diabetes mellitus (Chronic) Type 2 Body mass index 45.0-49.9, adult (Chronic) Chronic kidney disease, stage 3 (Chronic) Chronic obstructive pulmonary disease (Chronic) Allergic rhinitis (Chronic) Gout (Chronic) Vitamin D deficiency (Chronic) Tinea corporis (Chronic) Pulmonary hypertension (Chronic) Venous stasis ulcer of left lower extremity (Chronic) Chronic respiratory failure with hypoxia (Chronic) Morbid obesity (Chronic) Anemia (Chronic) Renal failure (Chronic) Thrombocytopenia (Chronic) Diabetes mellitus, type II (Chronic) IMAN (obstructive sleep apnea) (Chronic) Chronic diastolic (congestive) heart failure (Chronic) Secondary pulmonary arterial hypertension (Chronic) Right bundle branch block (RBBB) (Chronic) Essential (primary) hypertension (Chronic) Hyperlipidemia (Chronic) Lymphedema of both lower extremities (Chronic) Hospital Course and Treatment Imaging Results: Diagnostic Data Chest X-Ray 12/25/20 17:45 IMPRESSION: Worsening of atelectasis or infiltrate and pleural effusion in the lower right hemithorax. Electronically Signed: Denis Mackenzie MD at 18:16 EDT , Service support , Consultations 12/25/20 20:22 Consult: Onc/Wound/leather colorer Routine Comment: Operations: None Procedures: None Summary of Care Provided: The patient is a 70 year old M admitted 12/25/2020 due to dyspnea. 1. Acute on chronic hypoxic respiratory failure secondary to acute on chronic heart failure with preserved ejection fraction-chest x-ray consistent with congestion. BNP 565. Rickey wraps bilateral lower extremities. Patient recently discharged with 2 L nasal cannula supplemental oxygen. Continue supplement oxygen to maintain O2 at or above 90%. Echocardiogram 10/10/2020 demonstrates an EF of 65%, RVSP estimated to be 63 mmHg. Discontinue further IV Lasix. Transition to oral Lasix 40 mg twice daily. 2. Chronic lymphedema, acutely worsened with chronic lower extremity venous stasis ulcerations and associated cellulitis-follows with wound center. Rickey wraps ordered. Duplex ultrasound completed prior to discharge, results pending and will be reviewed prior to discharge. IV cefazolin during admission. Discharged on renally dosed Keflex for 7 days. Recommend close follow-up at wound center. Left leg wound culture growing staph aureus, GNR. 3. Chronic kidney disease stage IV-at baseline. Trend BMP. 4. Chronic thrombocytopenia-stable. 5. Type 2 diabetes mellitus-Continue home insulin regimen. Nighttime Lantus reduced to 15 units due to recurrent a.m. hypoglycemia. 6. Hypertension-stable, continue carvedilol, hydralazine, isosorbide. 7. Hyperlipidemia-continue statin. 8. Chronic anemia/anemia of chronic disease/iron deficiency anemia-at baseline, outpatient iron infusions. 9. Gout-on allopurinol. 10. Former tobacco use-encouraged continued cessation. 11. IMAN-continue home CPAP regimen. 12. BPH-continue Flomax. 13. Morbid obesity-encouraged diet lifestyle modifications. General: Alert, Oriented x3, Cooperative HEENT: Atraumatic, PERRLA, EOMI, Normocephalic Neck: Supple, No JVD, Negative Carotid Bruits Lungs: Clear to auscultation, Diminished Cardiovascular: Regular rate, No murmurs Abdomen: Bowel Sounds Present, Soft, Non Tender, Non-Distended Extremities: No clubbing, No cyanosis, Capillary Refill Less than 3 Seconds, Edema - Bilateral lower extremities, Rickey wraps in place Skin: - - Bilateral lower extremity venous stasis ulcerations with surrounding redness and warmth, worsened from previous assessment Musculoskeletal: No Tenderness to Palpation of Joints or Extremities Neurological: Cranial nerves II-XII grossly intact, Neuro grossly intact Psych/Mental Status: Normal Affect, Appropriate Patient seen and examined prior to discharge. Physical assessment as noted above. Patient is stable for discharge with follow up recommendations as noted above. This patient was seen by SHUN Allen under the supervision of Dr. Harrington. Patient Problems: Active and Suspected Problems (Last Reviewed 10/09/20 @ 15:[address] Destin Cain DO) (HFpEF) heart failure with preserved ejection fraction (Acute) Hypoxia (Acute) Acute on chronic diastolic congestive heart failure (Acute) - Physical Exam Vitals/I&O's: Vital Signs Temp Pulse Resp BP Pulse Ox 97.9 F 67 16 143/39 H 98 12/30/20 08:15 12/30/20 08:15 12/30/20 08:15 12/30/20 08:15 12/30/20 08:15 Oxygen Flow Rate (L/min) 2 Oxygen Delivery Method Nasal Cannula Weight: 343 lb 0.628 oz Body Mass Index (BMI) 0.0 Finger Stick Blood Glucose 131 Intake and Output for Last 24 Hours 12/28/20 12/29/20 12/30/20 23:59 23:59 23:59 Intake Total 700 / 700 1830 / 1830 273.33 / 273.33 Balance 700 / 700 1830 / 1830 273.33 / 273.33 Microbiology Past 72 Hours 12/29/20 09:00 Wound - Leg, Left Gram Stain - Final 12/29/20 09:00 Wound - Leg, Left Wound Culture - Preliminary Staphylococcus aureus GNR lactose deburring technician Gram negative micki Laboratory Results 12/29/20 09:00: S.aureus Protein A PCR POSITIVE H, MRSA (PCR) Negative 12/29/20 11:38: POC Glucose 190 H 12/29/20 16:47: POC Glucose 231 H 12/29/20 21:19: POC Glucose 208 H 12/30/20 06:04: WBC 5.9, RBC 2.89 L, Hgb 9.1 L, Hct 30.0 L, MCV 103.8 H, MCH 31.5, MCHC 30.3 L, RDW Std Deviation 66.4 H, RDW Coeff of Gina 17.2 H, Plt Count 92 L, MPV 10.4, Differential Comment SEE COMMENT 12/30/20 06:04: Sodium 135 L, Potassium 5.2 H, Chloride 104, Carbon Dioxide 24.0, Anion Gap 7, BUN 103 H*, Creatinine 3.15 H, Estim Creat Clear Calc 21.89, Est GFR (MDRD) Af Amer 25 L, Est GFR (MDRD) Non-Af 21 L, BUN/Creatinine Ratio 32.7 H, Glucose 123 H, Calcium 8.3 L 12/30/20 06:55: POC Glucose 123 H 12/30/20 11:43: POC Glucose 191 H Current Medications Acetaminophen (Acetaminophen 325 Mg Tablet) 650 mg PO Q6H PRN PRN PRN Reason: Pain Score 1-10/Temp > 100.7 F Last Admin: 12/30/20 09:34 Dose: 650 mg Documented by: Al Hydroxide/Mg Hydroxide (Mag Hydrox/Al Hydrox/Simeth 30 Ml Udc) 30 ml PO Q6H PRN PRN PRN Reason: Gastric Burning Albuterol Sulfate (Albuterol 2.5 Mg/3 Ml Vial.Neb.) 2.5 mg INHALATION Q2H PRN PRN PRN Reason: Dyspnea, wheezing Albuterol/Ipratropium (Ipratropium/Albuterol Sulfate 3 Ml Ampul.Neb) 3 ml INHALATION Q6HWA.RT [facility] Last Admin: 12/30/20 07:17 Dose: 3 ml Documented by: Allopurinol ([facility] 100 Mg Tablet) [facility] Last Admin: 12/30/20 09:33 Dose: 100 mg Documented by: Aspirin (Aspirin 81 Mg Tab.Chew) [facility] Last Admin: 12/30/20 09:32 Dose: 81 mg Documented by: Atorvastatin Calcium (Atorvastatin Calcium 80 Mg Tablet) 80 mg PO QHS [facility] Last Admin: 12/29/20 21:12 Dose: 80 mg Documented by: Calamine/Phenol (Menthol/Lanolin/Calamine/Znox 113 Gm Tube) 1 applic TOPICAL BID [facility]; Protocol Last Admin: 12/30/20 09:47 Dose: 1 applic Documented by: Carvedilol (Carvedilol 25 Mg Tablet) 50 mg PO BID [facility] Last Admin: 12/29/20 22:04 Dose: 50 mg Documented by: Cephalexin (Cephalexin 500 Mg Capsule) 500 mg PO Q12 [facility] Clonidine (Clonidine Hcl 0.1 Mg Tablet) 0.3 mg PO BID [facility] Last Admin: 12/30/20 09:35 Dose: 0.3 mg Documented by: Fluticasone Propionate (Fluticasone 0.05% 1 [place] Nasal.Sry) 2 spray NASAL DAILY [facility] Last Admin: 12/30/20 09:38 Dose: 2 spray Documented by: Furosemide (Furosemide 40 Mg Tablet) 40 mg PO BID@1000,1800 [facility] Last Admin: 12/30/20 09:33 Dose: 40 mg Documented by: Guaifenesin (Guaifenesin 10 Ml Udc (200mg/10ml)) 20 ml PO Q4H PRN PRN PRN Reason: COUGH Heparin Sodium (Porcine) (Heparin Injection (Vial) 5,000 Unit/Ml Vial) 5,000 unit SC Q12 [facility] Last Admin: 12/30/20 09:36 Dose: 5,000 unit Documented by: Hydralazine HCl (Hydralazine 25 Mg Tablet) 25 mg PO TID [facility] Last Admin: 12/30/20 05:56 Dose: 25 mg Documented by: Hydralazine HCl (Hydralazine 20 Mg/Ml Vial) 10 mg IV Q4H PRN PRN PRN Reason: SBP > 160 Insulin Glargine (Insulin Glargine 100 Units/Ml Pen) 30 units SC DINNER [facility] Last Admin: 12/29/20 16:49 Dose: 30 u Documented by: Insulin Glargine (Insulin Glargine 100 Units/Ml Pen) 30 units SC BREAKFAST [facility] Last Admin: 12/29/20 09:09 Dose: Not Given Documented by: Insulin Human Lispro (Insulin Lispro 100 Unit/Ml Insuln.Pen) 0 unit SC ACHS [facility]; Protocol Last Admin: 12/30/20 11:45 Dose: 2 u Documented by: Isosorbide Mononitrate (Isosorbide Mononitrate 120 Mg Tablet) 120 mg PO DAILY [facility] Last Admin: 12/30/20 09:32 Dose: 120 mg Documented by: Melatonin (Melatonin 3 Mg Tablet) 3 mg PO QHS PRN PRN PRN Reason: INSOMNIA Morphine Sulfate (Morphine 2 Mg/Ml Syringe) 2 mg IV Q3H PRN PRN PRN Reason: Pain Score 6-10 Nitroglycerin (Nitroglycerin (Inpatient Use) 0.4 Mg Tab.Subl) 0.4 mg SL Q5M PRN PRN Reason: CARDIAC/CHEST PAIN Nystatin (Nystatin Powder 15gm Bottle) 1 applic TOPICAL TID [facility]; Protocol Last Admin: 12/30/20 05:56 Dose: 1 applic Documented by: Ondansetron HCl (Ondansetron 4 Mg/2 Ml Vial) 4 mg IV Q8H PRN PRN PRN Reason: NAUSEA/VOMITING Polyethylene Glycol (Polyethylene Glycol 3350 17 Gm Packet) 17 gm PO DAILY [facility] Last Admin: 12/30/20 09:47 Dose: Not Given Documented by: Prochlorperazine Edisylate (Prochlorperazine 10 Mg/2 Ml Vial) 5 mg IV Q4H PRN PRN PRN Reason: Breakthrough Nausea/Vomiting Senna/Docusate Sodium (Senna/Docusate Sodium 1 Tablet) 2 tablet PO BID [facility] Last Admin: 12/30/20 09:33 Dose: 2 tablet Documented by: Sodium Chloride (0.9% Saline Lock 10 Ml Syringe) 10 - 40 ml IV UD PRN PRN Reason: SALINE FLUSH Last Admin: 12/30/20 09:48 Dose: 10 ml Documented by: Tamsulosin HCl (Tamsulosin Hcl 0.4 Mg Capsule) 0.4 mg PO DAILY@1730 [facility] Last Admin: 12/29/20 16:49 Dose: 0.4 mg Documented by: Throat Lozenges (Benzocaine/Menthol 1 Lozenge) 1 lozenge MUCOUS MEM Q2H PRN PRN PRN Reason: SORE THROAT Home Medications: Medications to take at Discharge Aspirin [Aspirin, Baby] 81 mg PO DAILY 03/03/15 Fluticasone 0.05% [Flonase Nasal [place]] 2 spray NASAL DAILY 12/31/15 Allopurinol [Zyloprim] 100 mg PO DAILYCM 03/03/19 Carvedilol [Coreg] 50 mg PO BID 03/03/19 Cholecalciferol (VIT D3) [Vitamin D3] 1,000 unit PO SUWESA 03/03/19 Clonidine HCl [Catapres] 0.3 mg PO BID 03/03/19 Isosorbide Mononitrate [Isosorbide Mononitrate ER] 120 mg PO DAILY 03/03/19 Umeclidinium Brm/Vilanterol Tr [Anoro Ellipta 62.5-25 Mcg INH] 1 puff IH DAILY 03/03/19 hydrALAZINE [Apresoline] 25 mg PO TID 03/03/19 atorvastatin 80 mg tablet 80 mg PO QHS #90 tab 04/04/19 Albuterol Inhaler [Ventolin Hfa] 2 puff INHALATION Q6H PRN PRN 04/27/19 Nitroglycerin (INPATIENT USE) [Nitrostat] 0.4 mg SUBLINGUAL Q5M PRN 09/19/20 Acetaminophen [Tylenol] 1,000 mg PO Q6H PRN PRN tab 12/10/20 Ondansetron [Zofran] 8 mg PO Q8H PRN PRN #90 tab 12/10/20 Insulin Glargine [Lantus SoloStar Pen] 30 units SC BREAKFAST 12/25/20 Menthol/Lanolin/Calamine/Znox [Calmoseptine Ointment] 1 applic TOPICAL BID 12/25/20 Nystatin Powder [Mycostatin Powder] 1 applic TOPICAL TID 12/25/20 Polyethylene Glycol 3350 [Miralax] 17 gm PO DAILY PRN PRN 12/25/20 Senna/Docusate Sodium [Senokot-S] 2 tablet PO BID 12/25/20 Tamsulosin HCl [Flomax] 0.4 mg PO DAILY@1730 12/25/20 Cephalexin [Keflex] 500 mg PO Q12 7 Days capsule 12/30/20 Furosemide [Lasix] 40 mg PO BID@1000,1800 tablet 12/30/20 Insulin Glargine [Lantus SoloStar Pen] 15 units SC DINNER #0 12/30/20 Insulin Lispro [Humalog KwikPen] See Protocol SC ACHS insuln.pen 12/30/20 Primary Care Physician: Jean-Claude Garcia MD [Primary Care Provider] - Please follow up with your Primary Care Physician in: 1 Week Please Follow Up With: Josué Caal NP, DREDGE ENGINEER-C When: As scheduled, 01/14/21 Please Follow Up With: Clinic,Wound When: 1 Week Please Follow Up With: [facility] When: To follow at [facility]- established during admission Disposition: [facility] facility Minutes spent on discharge:: 35 Patient Condition:: Stable Medical Necessity - Tobacco Use Smoking Status: Former smoker Tobacco Use: Non-smoker Meaningful Use Info Meaningful Use Diagnoses (Choose all that apply): CHF - CHF RICKEY/ARB ordered at discharge?: No Reason RICKEY/ARB not ordered?: Worsening renal disease Documented LVEF (%): 65 <Shaun Harrington F - Last Filed: 12/30/20 12:14> Discharge Date and Diagnosis - Primary Discharge Diagnosis Acute Problems: Active Problems (Last Reviewed 10/09/20 @ 15:[address] Destin Cain DO) (HFpEF) heart failure with preserved ejection fraction (Acute) Hypoxia (Acute) Acute on chronic diastolic congestive heart failure (Acute) - Secondary Discharge Diagnosis Chronic Problems: Chronic Problems (Last Reviewed 10/09/20 @ 15:[address] Destin Cain DO) Chronic diastolic (congestive) heart failure (Chronic) Chronic kidney disease (CKD) (Chronic) Stage IV Debility (Chronic) Diabetes mellitus (Chronic) Type 2 Body mass index 45.0-49.9, adult (Chronic) Chronic kidney disease, stage 3 (Chronic) Chronic obstructive pulmonary disease (Chronic) Allergic rhinitis (Chronic) Gout (Chronic) Vitamin D deficiency (Chronic) Tinea corporis (Chronic) Pulmonary hypertension (Chronic) Venous stasis ulcer of left lower extremity (Chronic) Chronic respiratory failure with hypoxia (Chronic) Morbid obesity (Chronic) Anemia (Chronic) Renal failure (Chronic) Thrombocytopenia (Chronic) Diabetes mellitus, type II (Chronic) IMAN (obstructive sleep apnea) (Chronic) Chronic diastolic (congestive) heart failure (Chronic) Secondary pulmonary arterial hypertension (Chronic) Right bundle branch block (RBBB) (Chronic) Essential (primary) hypertension (Chronic) Hyperlipidemia (Chronic) Lymphedema of both lower extremities (Chronic) Hospital Course and Treatment Consultations 12/25/20 20:22 Consult: Onc/Wound/leather colorer Routine Comment: Summary of Care Provided: The patient is a 70 year old M [] - Physical Exam Vitals/I&O's: Vital Signs Temp Pulse Resp BP Pulse Ox 97.9 F 67 16 143/39 H 98 12/30/20 08:15 12/30/20 08:15 12/30/20 08:15 12/30/20 08:15 12/30/20 08:15 Oxygen Flow Rate (L/min) 2 Oxygen Delivery Method Nasal Cannula Weight: 343 lb 0.628 oz Body Mass Index (BMI) 0.0 Finger Stick Blood Glucose 131 Intake and Output for Last 24 Hours 12/28/20 12/29/20 12/30/20 23:59 23:59 23:59 Intake Total 700 / 700 1830 / 1830 273.33 / 273.33 Balance 700 / 700 1830 / 1830 273.33 / 273.33 Microbiology Past 72 Hours 12/29/20 09:00 Wound - Leg, Left Gram Stain - Final 12/29/20 09:00 Wound - Leg, Left Wound Culture - Preliminary Staphylococcus aureus GNR lactose deburring technician Gram negative micki Laboratory Results 12/29/20 09:00: S.aureus Protein A PCR POSITIVE H, MRSA (PCR) Negative 12/29/20 16:47: POC Glucose 231 H 12/29/20 21:19: POC Glucose 208 H 12/30/20 06:04: WBC 5.9, RBC 2.89 L, Hgb 9.1 L, Hct 30.0 L, MCV 103.8 H, MCH 31.5, MCHC 30.3 L, RDW Std Deviation 66.4 H, RDW Coeff of Gina 17.2 H, Plt Count 92 L, MPV 10.4, Differential Comment SEE COMMENT 12/30/20 06:04: Sodium 135 L, Potassium 5.2 H, Chloride 104, Carbon Dioxide 24.0, Anion Gap 7, BUN 103 H*, Creatinine 3.15 H, Estim Creat Clear Calc 21.89, Est GFR (MDRD) Af Amer 25 L, Est GFR (MDRD) Non-Af 21 L, BUN/Creatinine Ratio 32.7 H, Glucose 123 H, Calcium 8.3 L 12/30/20 06:55: POC Glucose 123 H 12/30/20 11:43: POC Glucose 191 H Current Medications Acetaminophen (Acetaminophen 325 Mg Tablet) 650 mg PO Q6H PRN PRN PRN Reason: Pain Score 1-10/Temp > 100.7 F Last Admin: 12/30/20 09:34 Dose: 650 mg Documented by: Al Hydroxide/Mg Hydroxide (Mag Hydrox/Al Hydrox/Simeth 30 Ml Udc) 30 ml PO Q6H PRN PRN PRN Reason: Gastric Burning Albuterol Sulfate (Albuterol 2.5 Mg/3 Ml Vial.Neb.) 2.5 mg INHALATION Q2H PRN PRN PRN Reason: Dyspnea, wheezing Albuterol/Ipratropium (Ipratropium/Albuterol Sulfate 3 Ml Ampul.Neb) 3 ml INHALATION Q6HWA.RT [facility] Last Admin: 12/30/20 07:17 Dose: 3 ml Documented by: Allopurinol (Allopurinol 100 Mg Tablet) 100 mg PO DAILYCM [facility] Last Admin: 12/30/20 09:33 Dose: 100 mg Documented by: Aspirin (Aspirin 81 Mg Tab.Chew) 81 mg PO DAILYCM [facility] Last Admin: 12/30/20 09:32 Dose: 81 mg Documented by: Atorvastatin Calcium (Atorvastatin Calcium 80 Mg Tablet) 80 mg PO QHS [facility] Last Admin: 12/29/20 21:12 Dose: 80 mg Documented by: Calamine/Phenol (Menthol/Lanolin/Calamine/Znox 113 Gm Tube) 1 applic TOPICAL BID [facility]; Protocol Last Admin: 12/30/20 09:47 Dose: 1 applic Documented by: Carvedilol (Carvedilol 25 Mg Tablet) 50 mg PO BID [facility] Last Admin: 12/29/20 22:04 Dose: 50 mg Documented by: Cephalexin (Cephalexin 500 Mg Capsule) 500 mg PO Q12 [facility] Clonidine (Clonidine Hcl 0.1 Mg Tablet) 0.3 mg PO BID [facility] Last Admin: 12/30/20 09:35 Dose: 0.3 mg Documented by: Fluticasone Propionate (Fluticasone 0.05% 1 [place] Nasal.Sry) 2 spray NASAL DAILY [facility] Last Admin: 12/30/20 09:38 Dose: 2 spray Documented by: Furosemide (Furosemide 40 Mg Tablet) 40 mg PO BID@1000,1800 [facility] Last Admin: 12/30/20 09:33 Dose: 40 mg Documented by: Guaifenesin (Guaifenesin 10 Ml Udc (200mg/10ml)) 20 ml PO Q4H PRN PRN PRN Reason: COUGH Heparin Sodium (Porcine) (Heparin Injection (Vial) 5,000 Unit/Ml Vial) 5,000 unit SC Q12 [facility] Last Admin: 12/30/20 09:36 Dose: 5,000 unit Documented by: Hydralazine HCl (Hydralazine 25 Mg Tablet) 25 mg PO TID [facility] Last Admin: 12/30/20 05:56 Dose: 25 mg Documented by: Hydralazine HCl (Hydralazine 20 Mg/Ml Vial) 10 mg IV Q4H PRN PRN PRN Reason: SBP > 160 Insulin Glargine (Insulin Glargine 100 Units/Ml Pen) 30 units SC DINNER [facility] Last Admin: 12/29/20 16:49 Dose: 30 u Documented by: Insulin Glargine (Insulin Glargine 100 Units/Ml Pen) 30 units SC BREAKFAST [facility] Last Admin: 12/29/20 09:09 Dose: Not Given Documented by: Insulin Human Lispro (Insulin Lispro 100 Unit/Ml Insuln.Pen) 0 unit SC ACHS [facility]; Protocol Last Admin: 12/30/20 11:45 Dose: 2 u Documented by: Isosorbide Mononitrate (Isosorbide Mononitrate 120 Mg Tablet) 120 mg PO DAILY [facility] Last Admin: 12/30/20 09:32 Dose: 120 mg Documented by: Melatonin (Melatonin 3 Mg Tablet) 3 mg PO QHS PRN PRN PRN Reason: INSOMNIA Morphine Sulfate (Morphine 2 Mg/Ml Syringe) 2 mg IV Q3H PRN PRN PRN Reason: Pain Score 6-10 Nitroglycerin (Nitroglycerin (Inpatient Use) 0.4 Mg Tab.Subl) 0.4 mg SL Q5M PRN PRN Reason: CARDIAC/CHEST PAIN Nystatin (Nystatin Powder 15gm Bottle) 1 applic TOPICAL TID [facility]; Protocol Last Admin: 12/30/20 05:56 Dose: 1 applic Documented by: Ondansetron HCl (Ondansetron 4 Mg/2 Ml Vial) 4 mg IV Q8H PRN PRN PRN Reason: NAUSEA/VOMITING Polyethylene Glycol (Polyethylene Glycol 3350 17 Gm Packet) 17 gm PO DAILY [facility] Last Admin: 12/30/20 09:47 Dose: Not Given Documented by: Prochlorperazine Edisylate (Prochlorperazine 10 Mg/2 Ml Vial) 5 mg IV Q4H PRN PRN PRN Reason: Breakthrough Nausea/Vomiting Senna/Docusate Sodium (Senna/Docusate Sodium 1 Tablet) 2 tablet PO BID [facility] Last Admin: 12/30/20 09:33 Dose: 2 tablet Documented by: Sodium Chloride (0.9% Saline Lock 10 Ml Syringe) 10 - 40 ml IV UD PRN PRN Reason: SALINE FLUSH Last Admin: 12/30/20 09:48 Dose: 10 ml Documented by: Tamsulosin HCl (Tamsulosin Hcl 0.4 Mg Capsule) 0.4 mg PO DAILY@1730 [facility] Last Admin: 12/29/20 16:49 Dose: 0.4 mg Documented by: Throat Lozenges (Benzocaine/Menthol 1 Lozenge) 1 lozenge MUCOUS MEM Q2H PRN PRN PRN Reason: SORE THROAT Addendum: Dr. Harrington I personally examined the patient and reviewed the chart. I agree with the above. 70-year-old male presents to the hospital with worsening shortness of breath. He is found to have acute on chronic diastolic CHF exacerbation. Continue with IV Lasix and will wean off oxygen as able. His echocardiogram on October 10, 2020 demonstrated an EF of 65% with an RVSP of 63 mmHg. He also has CKD 4 and his renal function is improving with the diuresis. We will continue to monitor make adjustments as necessary. 12/28/2020: Feels little bit better today, still on a Ventimask. We will continue with IV Lasix for his severe pulmonary hypertension diastolic CHF. He does need to get his fistula resurfaced so he could be initiated on dialysis but I do not think he has gotten around this yet. On his previous discharge to the transitional care unit he was only on 2 L nasal cannula therefore will likely need to obtain a ambulatory pulse ox prior to discharge to see what his new oxygen level is. Also reiterate that he needs to get his fissure resurfaced so he can be dialyzed. 12/29/2020: Breathing better today, per the nursing staff they have been placing on the Ventimask for comfort reasons and not because of the need for oxygen. He is currently back down to his 2 L nasal cannula therefore can back down on his diuretics as well to p.o. He does have left lower extremity redness consistent with cellulitis also start him on Ancef. Disposition is likely to care home facility secondary skilled need. 12/30/2020: Doing much better today, he is back down to his baseline oxygen around 2 L nasal cannula. His cellulitis on his left lower extremity does appear to be improving, cultures are back with gram-negative rods and staph aureus it does not appear to be MRSA at this time but will follow those cultures even post discharge. He was initially started on Ancef and will be transition to Keflex, secondary to his renal function will be at twice daily dosing. Will obtain Doppler ultrasound of his left lower extremity just to be certain that there is no DVT. I did discuss with him the plan for discharge today he expressed understanding risk benefits of going to care home facility today and he would like to proceed with discharge today. Inpatient E&M: 48935 Disch Hosp
[2020-12-30] MEDS: Carvedilol 25 MG Tablet 50 MG PO (12:26)
[2020-12-30] MEDS: Cephalexin 500 MG Capsule PO (12:28)
--- NOTE | 2020-12-30 12:54 | CASEMGMT ---
TRACY faxed orders to [facility]. Orders were faxed to the nurses station per RN at [facility]'s request as well as to Ninoska in admissions. TRACY completed convalescent in [facility]. TRACY called Ninoska at [facility] and let her know that patient has to get a Venous Doppler before transport can be set up. She said that was fine. Await Doppler and results. Plan: d/c to [facility] at [place] under skilled level of care on a convalescent stay. [facility] will transport patient via wheelchair. Gretel Butcher [employer] RO[employer] MACHINE [employer]TER [employer]
--- NOTE | 2020-12-30 14:12 | PHA.DC.MR ---
Pharmacy Service has performed discharge medication reconciliation for this patient. The patient's discharge medication list was reviewed for discrepancies and discrepancies were resolved. Home Medications Aspirin [Aspirin, Baby] 81 mg PO DAILY 03/03/15 Fluticasone 0.05% [Flonase Nasal [place]] 2 spray NASAL DAILY 12/31/15 Allopurinol [Zyloprim] 100 mg PO DAILYCM 03/03/19 Carvedilol [Coreg] 50 mg PO BID 03/03/19 Cholecalciferol (VIT D3) [Vitamin D3] 1,000 unit PO SUWESA 03/03/19 Clonidine HCl [Catapres] 0.3 mg PO BID 03/03/19 Isosorbide Mononitrate [Isosorbide Mononitrate ER] 120 mg PO DAILY 03/03/19 Umeclidinium Brm/Vilanterol Tr [Anoro Ellipta 62.5-25 Mcg INH] 1 puff IH DAILY 03/03/19 hydrALAZINE [Apresoline] 25 mg PO TID 03/03/19 atorvastatin 80 mg tablet 80 mg PO QHS #90 tab 04/04/19 Albuterol Inhaler [Ventolin Hfa] 2 puff INHALATION Q6H PRN PRN 04/27/19 Nitroglycerin (INPATIENT USE) [Nitrostat] 0.4 mg SUBLINGUAL Q5M PRN 09/19/20 Acetaminophen [Tylenol] 1,000 mg PO Q6H PRN PRN tab 12/10/20 Ondansetron [Zofran] 8 mg PO Q8H PRN PRN #90 tab 12/10/20 Insulin Glargine [Lantus SoloStar Pen] 30 units SC BREAKFAST 12/25/20 Menthol/Lanolin/Calamine/Znox [Calmoseptine Ointment] 1 applic TOPICAL BID 12/25/20 Nystatin Powder [Mycostatin Powder] 1 applic TOPICAL TID 12/25/20 Polyethylene Glycol 3350 [Miralax] 17 gm PO DAILY PRN PRN 12/25/20 Senna/Docusate Sodium [Senokot-S] 2 tablet PO BID 12/25/20 Tamsulosin HCl [Flomax] 0.4 mg PO DAILY@1730 12/25/20 Cephalexin [Keflex] 500 mg PO Q12 7 Days capsule 12/30/20 Furosemide [Lasix] 40 mg PO BID@1000,1800 tablet 12/30/20 Insulin Glargine [Lantus SoloStar Pen] 15 units SC DINNER #0 12/30/20 Insulin Lispro [Humalog KwikPen] See Protocol SC ACHS insuln.pen 12/30/20
--- NOTE | 2020-12-30 15:31 | NURSING ---
Student nurse documentation reviewed.
[2020-12-30 16:40] LABS: Bedside Glucose 236 mg/dL (70-110)
[2020-12-30] MEDS: Tamsulosin HCl 0.4 MG Capsule PO (16:40)
== END 2020-12-30 17:48 | disposition skilled nursing facility (03) | DRG 291 ==
LOC: ED 17:45 → PCU 19:49
PROVIDERS: Nurse Practitioner Family; Student in an Organized Health Care Education/Training Program; Admitting Provider Family Medicine; Emergency Provider Emergency Medicine; PCP Family Medicine; Visit Provider Family Medicine
DX: I50.33 Acute on chronic diastolic (congestive) heart failure (principal); J96.21 Acute and chronic respiratory failure with hypoxia; I13.2 Hypertensive heart and chronic kidney disease with heart failure and with stage 5 chronic kidney disease, or end stage renal disease; L03.116 Cellulitis of left lower limb; N18.4 Chronic kidney disease, stage 4 (severe); Z68.42 Body mass index [BMI] 45.0-49.9, adult; I89.0 Lymphedema, not elsewhere classified; D69.6 Thrombocytopenia, unspecified; I87.2 Venous insufficiency (chronic) (peripheral); E11.22 Type 2 diabetes mellitus with diabetic chronic kidney disease; E78.5 Hyperlipidemia, unspecified; D50.9 Iron deficiency anemia, unspecified; D63.1 Anemia in chronic kidney disease; M10.9 Gout, unspecified; G47.33 Obstructive sleep apnea (adult) (pediatric); N40.0 Benign prostatic hyperplasia without lower urinary tract symptoms; E66.01 Morbid (severe) obesity due to excess calories; Z99.81 Dependence on supplemental oxygen; Z87.891 Personal history of nicotine dependence; Z79.4 Long term (current) use of insulin; Z79.51 Long term (current) use of inhaled steroids; Z79.899 Other long term (current) drug therapy; J44.9 Chronic obstructive pulmonary disease, unspecified; Z66 Do not resuscitate; I27.21 Secondary pulmonary arterial hypertension; R53.81 Other malaise; G89.29 Other chronic pain; A49.01 Methicillin susceptible Staphylococcus aureus infection, unspecified site
CPT/HCPCS: 11042; 36415; 71045; 80048; 80053; 80061; 82962; 83036; 83735; 83880; 84439; 84443; 84484; 85025; 85027; 87070; 87077; 87186; 87205; 87426; 87640; 93005; 93970; 94003; 94640; 94660; 97110; 97163; 97166; 97530; 97535; 97802; 99213; 99251; 99285; A4216; G0463; J1940

== ENCOUNTER 2021-01-09 15:54 | Inpatient (IN) | payer MEDICARE, OTHER, SELFPAY ==
[2021-01-09] VITALS (9 sets, daily range): BP systolic 127–172; BP diastolic 52–88; PULSE 58–66; RESP 16–22; TEMP 36.4–37; O2SAT 95–100; BMI 48.1; BMI 46.3; BMI 46.4
[2021-01-09 16:41] LABS: Absolute Lymphocyte Count 0.32 X10^3/uL (0.83-4.51); Absolute Neutrophil Count 6.2 X10^3/uL (2.0-7.7); Basophil# 0.02 X10^3/uL; Basophil% 0.3 % (0-1); Eosinophils% 1.4 % (0-5); Hematocrit 29.9 % (40-54); Hemoglobin 8.9 g/dL (13.0-16.5); Lymphocyte # 0.32 X10^3/ul (4.0); Lymphocyte % 4.6 % (19-41); Mean Corp Hgb Conc 29.8 g/dL (32-36); Mean Corpuscular Hgb 30.9 pg (27.0-32.0); Mean Corpuscular Volume 103.8 fL (80-94); Mean Platelet Vol. 10.3 fl (6.2-12.0); Monocyte# 0.28 X10^3/uL; Monocyte% 4.1 % (0-10); NRBC Flagged by Analyzer 0 % (0-5); Neutrophil # 6.15 X10^3/uL (2.7-7.7); Neutrophil % 89.2 % (47-70); POSITIVE DIFFERENTIAL YES; POSITIVE MORPHOLOGY YES; Platelet Count 116 K/mm3 (150-450); RBC Distribution Width CV 18.1 % (11.6-14.6); RBC Distribution Width SD 68.8 fl (35.1-43.9); Red Blood Count 2.88 M/mm3 (4.6-6.2); White Blood Count 6.9 K/mm3 (4.4-11.0)
[2021-01-09 16:46] LABS: International Normalized Ratio 1.3; Prothrombin Time (Protime)PT. 15.5 SECONDS (11.7-14.9)
[2021-01-09 16:47] LABS: Partial Thromboplast Time 28.1 Seconds (24.1-36.2)
[2021-01-09 16:50] LABS: Differential Indicated SCAN CRITERIA MET
--- NOTE | 2021-01-09 16:59 | PCM.HP.STD ---
Problem List (1) (HFpEF) heart failure with preserved ejection fraction Status: Chronic Qualifiers: (2) Chronic diastolic (congestive) heart failure Status: Chronic (3) Chronic kidney disease (CKD) Status: Chronic Qualifiers: Comment: Stage IV (4) Debility Status: Chronic (5) Body mass index 45.0-49.9, adult Status: Chronic (6) Chronic obstructive pulmonary disease Status: Chronic Qualifiers: (7) Allergic rhinitis Status: Chronic Qualifiers: (8) Gout Status: Chronic (9) Vitamin D deficiency Status: Chronic (10) Tinea corporis Status: Chronic (11) Pulmonary hypertension Status: Chronic (12) Venous stasis ulcer of left lower extremity Status: Chronic (13) Chronic respiratory failure with hypoxia Status: Chronic (14) Morbid obesity Status: Chronic (15) Anemia Status: Chronic (16) Thrombocytopenia Status: Chronic (17) Diabetes mellitus, type II Status: Chronic Qualifiers: (18) IMAN (obstructive sleep apnea) Status: Chronic (19) Secondary pulmonary arterial hypertension Status: Chronic (20) Right bundle branch block (RBBB) Status: Chronic (21) Essential (primary) hypertension Status: Chronic (22) Hyperlipidemia Status: Chronic Qualifiers: (23) Lymphedema of both lower extremities Status: Chronic History of Present Illness Date of Admission: 01/09/21 Chief Complaint: Shortness of breath, increased swelling. The patient is a 70 year old M who presents to the emergency room due to shortness of breath and increased swelling. Patient was recently discharged 12/30/2020 following treatment for chronic heart failure with preserved ejection fraction, complicated by chronic kidney disease stage IV. Patient states physician at [facility] told him he should come to the hospital to get dialysis. Patient has not previously been on dialysis. He had left upper extremity fistula placed in May 2020 however per patient he states nephrology does not feel it is big enough and has not yet been used. During recent discharge, patient was discharged on supplemental oxygen. Oxygen stable on 4 L nasal cannula in emergency room. Patient states he has been taking his Lasix at [facility] however he is continued to worsen. He denies cough, fever, chills. Denies increased drainage from lower extremities. He has a past medical history of chronic toxic respiratory failure secondary to chronic heart failure with preserved ejection fraction, chronic kidney disease stage IV, chronic lymphedema with chronic lower extremity venous stasis ulcerations, chronic thrombocytopenia, type 2 diabetes mellitus, hypertension, hyperlipidemia, chronic anemia, gout, former tobacco use, IMAN, BPH, morbid obesity. Past Medical History Past Medical History (Chronic Problems): Chronic Problems (Last Reviewed 10/09/20 @ 15:[address] Destin Cain, ) (HFpEF) heart failure with preserved ejection fraction (Chronic) Chronic diastolic (congestive) heart failure (Chronic) Chronic kidney disease (CKD) (Chronic) Stage IV Debility (Chronic) Body mass index 45.0-49.9, adult (Chronic) Chronic obstructive pulmonary disease (Chronic) Allergic rhinitis (Chronic) Gout (Chronic) Vitamin D deficiency (Chronic) Tinea corporis (Chronic) Pulmonary hypertension (Chronic) Venous stasis ulcer of left lower extremity (Chronic) Chronic respiratory failure with hypoxia (Chronic) Morbid obesity (Chronic) Anemia (Chronic) Thrombocytopenia (Chronic) Diabetes mellitus, type II (Chronic) IMAN (obstructive sleep apnea) (Chronic) Secondary pulmonary arterial hypertension (Chronic) Right bundle branch block (RBBB) (Chronic) Essential (primary) hypertension (Chronic) Hyperlipidemia (Chronic) Lymphedema of both lower extremities (Chronic) Medical History: Medical History (Last Reviewed 10/09/20 @ 15:[address] Destin Cain DO) Secondary pulmonary arterial hypertension (Chronic) I27.21 Right bundle branch block (RBBB) (Chronic) I45.10 Essential (primary) hypertension (Chronic) I10 Hyperlipidemia (Chronic) E78.5 Lymphedema of both lower extremities (Chronic) I89.0 BMI 33.0-33.9,adult Z68.33 Non-pressure ulcer of right lower extremity with fat layer exposed L97.912 Traumatic open wound of right lower leg with delayed healing S81.801D Type 2 diabetes mellitus E11.9 DEVAN (acute kidney injury) (Resolved) N17.9 Gastrointestinal bleed K92.2 Syncope and collapse R55 CKD (chronic kidney disease), stage III N18.3 Traumatic open wound of right lower leg (Inactive) S81.801A Wound of right leg (Inactive) S81.801A Allergies ARB-Angiotensin Receptor Antagonist Allergy (Verified 01/09/21 16:07) WORSENS RENAL FUNCTION WORSENS RENAL FUNCTION amoxicillin Adverse Reaction (Verified 01/09/21 16:07) Upset Stomach Home Medications: Ambulatory Orders Medication Instructions Recorded Aspirin [Aspirin, Baby] 81 mg PO DAILY 03/03/15 Fluticasone 0.05% [Flonase Nasal 2 spray NASAL DAILY 12/31/15 [place]] Allopurinol [Zyloprim] 100 mg PO DAILYCM 03/03/19 Carvedilol [Coreg] 50 mg PO BID 03/03/19 Cholecalciferol (VIT D3) [Vitamin 1,000 unit PO SUWESA 03/03/19 D3] Isosorbide Mononitrate [Isosorbide 120 mg PO DAILY 03/03/19 Mononitrate ER] Umeclidinium Brm/Vilanterol Tr 1 puff IH DAILY 03/03/19 [Anoro Ellipta 62.5-25 Mcg INH] hydrALAZINE [Apresoline] 25 mg PO TID 03/03/19 atorvastatin 80 mg tablet 80 mg PO QHS #90 tab 04/04/19 Albuterol Inhaler [Ventolin Hfa] 2 puff INHALATION Q6H PRN PRN 04/27/19 Nitroglycerin (INPATIENT USE) 0.4 mg SUBLINGUAL Q5M PRN 09/19/20 [Nitrostat] Acetaminophen [Tylenol] 1,000 mg PO Q6H PRN PRN tab 12/10/20 Ondansetron [Zofran] 8 mg PO Q8H PRN PRN #90 tab 12/10/20 Insulin Glargine [Lantus SoloStar 30 units SC BREAKFAST 12/25/20 Pen] Menthol/Lanolin/Calamine/Znox 1 applic TOPICAL BID 12/25/20 [Calmoseptine Ointment] Nystatin Powder [Mycostatin Powder] 1 applic TOPICAL TID 12/25/20 Senna/Docusate Sodium [Senokot-S] 2 tablet PO BID 12/25/20 Tamsulosin HCl [Flomax] 0.4 mg PO DAILY@1730 12/25/20 Azithromycin [Zithromax Tri-Bulmaro] 500 mg PO DAILY 01/09/21 Clonidine HCl 0.3 mg PO BID 01/09/21 Furosemide Liquid [Lasix Liquid] 80 mg IM BID@0800,1700 01/09/21 Furosemide [Lasix] 40 mg PO BID@0800,1700 01/09/21 Insulin Glargine [Lantus SoloStar 15 units SC DINNER@1700 01/09/21 Pen] Insulin Lispro [Humalog KwikPen] See Protocol SC TID 01/09/21 Surgical History: Surgical History (Last Reviewed 10/09/20 @ 15:[address] Destin Cain DO) A-V fistula Onset Date: 05/09/20 I77.0 LUE History of cataract surgery Z98.49 Surgical History: cataract, - - AVF left radiocephalic, nasal cyst removal. Psychiatric History: No pertinent psych hx Lives: [facility] Smoking Status: Former smoker Alcohol: None Drugs: None - *Family History Sibling Family History: Family History (Last Reviewed 10/09/20 @ 15:[address] Destin Cain DO) Other Diabetes Heart disease Hypertension History Items: Heart Disease Paternal Family History: Family History (Last Reviewed 10/09/20 @ 15:[address] Destin Cain DO) Other Diabetes Heart disease Hypertension History Items: Cancer - Other with a history of possibly lymphoma., Diabetes Maternal Family History: Family History (Last Reviewed 10/09/20 @ 15:[address] Destin Cain DO) Other Diabetes Heart disease Hypertension History Items: Diabetes, Heart Disease, Hypertension Review of Systems Constitutional: Denies: Chills, Fever, Weight Change HEENT: Denies: Head Aches, Sinus Congestion, Sinus Drainage Cardiovascular: Reports: Edema - Worsening, generalized with chronic lower extremity lymphedema. Denies: Chest Pain, Palpitations Respiratory: Reports: Shortness of Breath. Denies: Cough, Sputum production Gastrointestinal: Denies: Abdominal Pain, Nausea, Vomiting Genitourinary: Denies: Dysuria Musculoskeletal: Denies: Joint Pain, Joint Tenderness Skin: Reports: - - Lower extremity venous stasis ulcerations Neurological: Denies: Numbness, Tingling, Focal weakness Psychiatric: Denies: Anxiety, Depression, Homicidal Ideations, Suicidal Ideations Hematologic/ Lymphatic: Denies: Easy Bruising, Easy Bleeding VTE Information - Inpt Only VTE Present on Admission: No VTE Mechan Device Prophylaxis: None VTE Pharm Prophylaxis ordered?: Yes - Physical Exam Vitals/I&O's: Vital Signs Temp Pulse Resp BP Pulse Ox 98.2 F 64 22 H 157/62 H 98 01/09/21 16:39 01/09/21 16:39 01/09/21 16:39 01/09/21 16:39 01/09/21 16:39 Oxygen Flow Rate (L/min) 4 Oxygen Delivery Method Nasal Cannula Weight: 335 lb 5.169 oz Body Mass Index (BMI) 48.1 Finger Stick Blood Glucose 131 General: Alert, Oriented x3, Cooperative HEENT: Atraumatic, PERRLA, EOMI, Normocephalic Neck: Supple, No JVD, Negative Carotid Bruits Lungs: Clear to auscultation, Diminished Cardiovascular: Regular rate, No murmurs Abdomen: Bowel Sounds Present, Soft, Non Tender, Non-Distended, Obese Extremities: No clubbing, No cyanosis, Edema - Bilateral lower extremities, chronic lymphedema Skin: - - Bilateral lower extremity venous stasis ulcerations Musculoskeletal: No Tenderness to Palpation of Joints or Extremities Neurological: Cranial nerves II-XII grossly intact, Neuro grossly intact Psych/Mental Status: Normal Affect, Appropriate Laboratory Results 01/09/21 16:05: WBC 6.9, RBC 2.88 L, Hgb 8.9 L, Hct 29.9 L, MCV 103.8 H, MCH 30.9, MCHC 29.8 L, RDW Std Deviation 68.8 H, RDW Coeff of Gina 18.1 H, Plt Count 116 L, MPV 10.3, Immature Gran % (Auto) 0.400, Neut % (Auto) 89.2 H, Lymph % (Auto) 4.6 L, Mathews % (Auto) 4.1, Eos % (Auto) 1.4, Baso % (Auto) 0.3, Absolute Neuts (auto) 6.2, Absolute Lymphs (auto) 0.32 L, Nucleated RBC % 0 01/09/21 16:05: PT 15.5 H, INR 1.3, APTT 28.1 01/09/21 16:05: Sodium Pending, Potassium Pending, Chloride Pending, Carbon Dioxide Pending, Anion Gap Pending, BUN Pending, Creatinine Pending, Est GFR (MDRD) Af Amer Pending, Est GFR (MDRD) Non-Af Pending, BUN/Creatinine Ratio Pending, Glucose Pending, Calcium Pending, Phosphorus Pending, Magnesium Pending Assessment/Plan All Active Problems (Last Reviewed 10/09/20 @ 15:[address] Destin Cain DO) DEVAN (acute kidney injury) (Resolved) 1. Anasarca, chronic lymphedema, acutely worsened with chronic lower extremity venous stasis ulcerations-recently completed treatment for associated cellulitis. Recent duplex ultrasound negative for DVT. Appears improved from prior. Lasix drip. Consult nephrology for initiation of dialysis. 2. Chronic hypoxic respiratory failure secondary to chronic heart failure with preserved ejection fraction-Echocardiogram 10/10/2020 demonstrates an EF of 65%, RVSP estimated to be 63 mmHg. Lasix gtt as noted above. Continue supplemental oxygen to maintain O2 at or above 90%. 3. Chronic kidney disease stage IV-admission labs pending. Consult nephrology. 4. Chronic thrombocytopenia-stable. 5. Type 2 diabetes mellitus-Continue home insulin regimen. Accu-Cheks with sliding scale insulin. 6. Hypertension-stable, continue carvedilol, hydralazine, isosorbide. 7. Hyperlipidemia-continue statin. 8. Chronic anemia/anemia of chronic disease/iron deficiency anemia-at baseline, outpatient iron infusions. 9. Gout-on allopurinol. 10. Former tobacco use-encouraged continued cessation. 11. IMAN-continue home CPAP regimen. 12. BPH-continue Flomax. 13. Morbid obesity-encouraged diet lifestyle modifications. DVT prophylaxis-Heparin subcu CODE STATUS-DNR CCA no intubation This patient was seen by SHUN Allen under the supervision of Dr. Oliver.
--- NOTE | 2021-01-09 17:21 | ED.DCSUM_ITS ---
- ER Visit Summary Date of Service: 01/09/21 Chief Complaint: Edema, here for dialysis History of Present Illness: The patient is a 70 M [facility] He was referred to the ED for increasing edema and dialysis. He has a history of chronic kidney disease, and he says his numbers are worsening and his urine output is decreasing. He has a fistula in his left arm, but has not used it. His local ceo & board director said it is too small according to the patient. He has never had dialysis. He denies any other associated symptoms. Physical Examination: Afebrile and vital signs unremarkable. Patient 98% on nasal cannula oxygen, speaking in full sentences, sitting comfortably. He has extensive edema diffusely. Lungs are diminished. Heart regular. Test Results: Hemoglobin 8.9, platelets 116, INR 1.3, PTT normal, metabolic panel, magnesium, phosphorus pending Emergency Department Course and Treatment: I spoke with Dr. Gutierrez his ceo & board director we talked about medication adjustments and outpatient follow-up. The patient seems to be suffering from his symptoms, and she advised admission for Lasix drip, possibly over the weekend. I spoke with the hospitalist who will admit for further care. Treatment Plan: As above Disposition: Admission Impression: End-stage renal disease, anasarca This note was generated with [employer] dictation software. It may contain incorrect words, spelling, and punctuation that were not noted in review of the chart prior to signing ED Disposition - Plan for ED Patient: Referrals: Jean-Claude Garcia MD [Primary Care Provider] -
[2021-01-09 17:22] LABS: Anisocytosis 1+; Differential Comment SCANNED; Hypochromasia 1+; Macrocytosis 1+; Platelet Estimate SLT DEC (ADEQ); Rouleaux 1+
[2021-01-09 17:39] LABS: Anion Gap 4 (5-15); BUN 105 mg/dL (7-18); BUN/Creat Ratio 36.8 RATIO (10-20); Calcium,Total 8.3 mg/dL (8.5-10.1); Chloride 108 mmol/L (98-107); Creatinine, Serum 2.85 mg/dL (0.70-1.30); EST Glomerular Filtration Rate 23 mL/min (>60); Est Glom Filt Rate - Afr Amer 28 mL/min (>60); Estimated Creatinine Clearance 24.19 ml/min; Glucose 120 mg/dL (74-106); Magnesium 2.6 mg/dL (1.6-2.6); Phosphorus 4.8 mg/dL (2.5-4.9); Potassium 4.6 mmol/L (3.5-5.1); Sodium Level 142 mmol/L (136-145)
--- NOTE | 2021-01-09 17:39 | ED.RN ---
lab called critical bun of 105. dr myers
[2021-01-09] MEDS: Furosemide 500 MG in Empty Viaflex 50 mL 1 EACH CONT INF (20:06)
[2021-01-09] MEDS: Carvedilol 25 MG Tablet 50 MG PO (21:58)
[2021-01-09] MEDS: cloNIDine HCl 0.1 MG Tablet 0.3 MG PO (21:59)
[2021-01-09] MEDS: Heparin Injection (Vial) 5,000 UNIT/ML VIAL 5000 UNIT SC (21:59)
[2021-01-09] MEDS: hydrALAZINE 25 MG Tablet PO (21:59)
[2021-01-09] MEDS: Atorvastatin Calcium 80 MG Tablet PO (21:59)
[2021-01-09 22:11] LABS: Bedside Glucose 149 mg/dL (70-110)
[2021-01-09] MEDS: Ipratropium/Albuterol Sulfate 3 ML AMPUL.NEB INHALATION (22:57)
[2021-01-10] VITALS (17 sets, daily range): BP systolic 127–139; BP diastolic 40–77; PULSE 51–71; RESP 15–22; TEMP 36.6–36.9; O2SAT 95–100
[2021-01-10 05:30] LABS: Absolute Lymphocyte Count 0.46 X10^3/uL (0.83-4.51); Basophil# 0.03 X10^3/uL; Basophil% 0.6 % (0-1); Eosinophil# 0.16 X10^3/uL; Eosinophils% 3.2 % (0-5); Hemoglobin 8.1 g/dL (13.0-16.5); Lymphocyte # 0.46 X10^3/ul (4.0); Lymphocyte % 9.2 % (19-41); Mean Corp Hgb Conc 28.9 g/dL (32-36); Mean Corpuscular Hgb 30.3 pg (27.0-32.0); Mean Corpuscular Volume 104.9 fL (80-94); Mean Platelet Vol. 10.4 fl (6.2-12.0); Monocyte# 0.37 X10^3/uL; Monocyte% 7.4 % (0-10); NRBC Flagged by Analyzer 0 % (0-5); Neutrophil # 3.98 X10^3/uL (2.7-7.7); Neutrophil % 79.4 % (47-70); POSITIVE DIFFERENTIAL YES; POSITIVE MORPHOLOGY YES; Platelet Count 107 K/mm3 (150-450); RBC Distribution Width CV 18.1 % (11.6-14.6); Red Blood Count 2.67 M/mm3 (4.6-6.2)
[2021-01-10 05:31] LABS: Differential Indicated SCAN CRITERIA MET
[2021-01-10 05:52] LABS: Anisocytosis 1+
[2021-01-10 05:59] LABS: Anion Gap 3 (5-15); BUN 100 mg/dL (7-18); BUN/Creat Ratio 36.4 RATIO (10-20); Calcium,Total 8.3 mg/dL (8.5-10.1); Chloride 108 mmol/L (98-107); Creatinine, Serum 2.75 mg/dL (0.70-1.30); EST Glomerular Filtration Rate 24 mL/min (>60); Est Glom Filt Rate - Afr Amer 29 mL/min (>60); Estimated Creatinine Clearance 25.07 ml/min; Glucose 124 mg/dL (74-106); Potassium 4.6 mmol/L (3.5-5.1); Sodium Level 140 mmol/L (136-145); Thyroid Stim Hormone (TSH) 1.39 uIU/mL (0.358-3.74)
[2021-01-10 06:56] LABS: Bedside Glucose 124 mg/dL (70-110)
[2021-01-10] MEDS: Ipratropium/Albuterol Sulfate 3 ML AMPUL.NEB INHALATION ×3 (07:16→18:41)
[2021-01-10] MEDS: Allopurinol 100 MG Tablet PO (08:19)
[2021-01-10] MEDS: Aspirin 81 MG TAB.CHEW PO (08:19)
[2021-01-10] MEDS: cloNIDine HCl 0.1 MG Tablet 0.3 MG PO ×2 (11:04→21:19)
[2021-01-10] MEDS: Carvedilol 25 MG Tablet 50 MG PO (11:05)
[2021-01-10] MEDS: Heparin Injection (Vial) 5,000 UNIT/ML VIAL 5000 UNIT SC ×2 (11:05→21:19)
--- NOTE | 2021-01-10 11:08 | PN_ITS ---
<Meghann Borges SOCIOLOGY INSTRUCTOR - Last Filed: 01/10/21 11:13> Subjective: Patient seen and examined. Reports improvement in shortness of breath. Reports continued generalized swelling. No other symptoms or complaints. - Physical Exam Vitals/I&O's: Vital Signs Temp Pulse Resp BP Pulse Ox 97.9 F 59 L 22 H 139/64 H 100 01/10/21 08:11 01/10/21 08:11 01/10/21 08:11 01/10/21 08:11 01/10/21 08:11 Oxygen Flow Rate (L/min) 3.5 Oxygen Delivery Method Nasal Cannula Weight: 323 lb 3.163 oz Body Mass Index (BMI) 46.3 Finger Stick Blood Glucose 131 Intake and Output for Last 24 Hours 01/08/21 01/09/21 01/10/21 23:59 23:59 23:59 Intake Total 480 / 480 Output Total 550 / 550 Balance 480 / 480 -550 / -550 General: Alert, Oriented x3, Cooperative HEENT: Atraumatic, PERRLA, EOMI, Normocephalic Neck: Supple, No JVD, Negative Carotid Bruits Lungs: Clear to auscultation, Diminished Cardiovascular: Regular rate, No murmurs Abdomen: Bowel Sounds Present, Soft, Non Tender, Non-Distended, Obese Extremities: No clubbing, No cyanosis, Edema - Edema - Bilateral lower extremities, chronic lymphedema Skin: - - Bilateral lower extremity venous stasis ulcerations Musculoskeletal: No Tenderness to Palpation of Joints or Extremities Neurological: Cranial nerves II-XII grossly intact, Neuro grossly intact Psych/Mental Status: Normal Affect, Appropriate Laboratory Results 01/09/21 16:05: WBC 6.9, RBC 2.88 L, Hgb 8.9 L, Hct 29.9 L, MCV 103.8 H, MCH 30.9, MCHC 29.8 L, RDW Std Deviation 68.8 H, RDW Coeff of Gina 18.1 H, Plt Count 116 L, MPV 10.3, Immature Gran % (Auto) 0.400, Neut % (Auto) 89.2 H, Lymph % (Auto) 4.6 L, [place] % (Auto) 4.1, Eos % (Auto) 1.4, Baso % (Auto) 0.3, Absolute Neuts (auto) 6.2, Absolute Lymphs (auto) 0.32 L, Nucleated RBC % 0, Differential Comment SCANNED, Platelet Estimate SLT DEC, Hypochromasia 1+, Anisocytosis 1+, Macrocytosis 1+, Rouleaux 1+ 01/09/21 16:05: PT 15.5 H, INR 1.3, APTT 28.1 01/09/21 16:05: Sodium 142, Potassium 4.6, Chloride 108 H, Carbon Dioxide 30.0, Anion Gap 4 L, BUN 105 H*, Creatinine 2.85 H, Estim Creat Clear Calc 24.19, Est GFR (MDRD) Af Amer 28 L, Est GFR (MDRD) Non-Af 23 L, BUN/Creatinine Ratio 36.8 H , Glucose 120 H, Calcium 8.3 L, Phosphorus 4.8, Magnesium 2.6 01/09/21 21:54: POC Glucose 149 H 01/10/21 05:15: WBC 5.0, RBC 2.67 L, Hgb 8.1 L, Hct 28.0 L, MCV 104.9 H, MCH 30.3, MCHC 28.9 L, RDW Std Deviation 70.0 H, RDW Coeff of Gina 18.1 H, Plt Count 107 L, MPV 10.4, Immature Gran % (Auto) 0.200, Neut % (Auto) 79.4 H, Lymph % (Auto) 9.2 L, [place] % (Auto) 7.4, Eos % (Auto) 3.2, Baso % (Auto) 0.6, Absolute Neuts (auto) 4.0, Absolute Lymphs (auto) 0.46 L, Nucleated RBC % 0, Anisocytosis 1+ 01/10/21 05:15: Sodium 140, Potassium 4.6, Chloride 108 H, Carbon Dioxide 29.0, Anion Gap 3 L, BUN 100 H, Creatinine 2.75 H, Estim Creat Clear Calc 25.07, Est GFR (MDRD) Af Amer 29 L, Est GFR (MDRD) Non-Af 24 L, BUN/Creatinine Ratio 36.4 H , Glucose 124 H, Calcium 8.3 L, TSH 1.39 01/10/21 06:46: POC Glucose 124 H Current Medications Acetaminophen (Acetaminophen 325 Mg Tablet) 650 mg PO Q6H PRN PRN PRN Reason: Pain Score 1-10/Temp > 100.7 F Albuterol Sulfate (Albuterol 2.5 Mg/3 Ml Vial.Neb.) 2.5 mg INHALATION Q2H PRN PRN PRN Reason: Dyspnea, wheezing Albuterol/Ipratropium (Ipratropium/Albuterol Sulfate 3 Ml Ampul.Neb) 3 ml INHALATION Q6HWA.RT [facility] Last Admin: 01/10/21 07:16 Dose: 3 ml Documented by: Allopurinol (Allopurinol 100 Mg Tablet) 100 mg PO DAILYCM [facility] Last Admin: 01/10/21 08:19 Dose: 100 mg Documented by: Aspirin (Aspirin 81 Mg Tab.Chew) 81 mg PO DAILYCM [facility] Last Admin: 01/10/21 08:19 Dose: 81 mg Documented by: Atorvastatin Calcium (Atorvastatin Calcium 80 Mg Tablet) 80 mg PO QHS [facility] Last Admin: 01/09/21 21:59 Dose: 80 mg Documented by: Carvedilol (Carvedilol 25 Mg Tablet) 50 mg PO BID [facility] Last Admin: 01/10/21 11:05 Dose: 50 mg Documented by: Clonidine (Clonidine Hcl 0.1 Mg Tablet) 0.3 mg PO BID [facility] Last Admin: 01/10/21 11:04 Dose: 0.3 mg Documented by: Heparin Sodium (Porcine) (Heparin Injection (Vial) 5,000 Unit/Ml Vial) 5,000 unit SC Q12 [facility] Last Admin: 01/10/21 11:05 Dose: 5,000 unit Documented by: Hydralazine HCl (Hydralazine 25 Mg Tablet) 25 mg PO TID [facility] Last Admin: 01/10/21 06:45 Dose: Not Given Documented by: Hydralazine HCl (Hydralazine 20 Mg/Ml Vial) 10 mg IV Q4H PRN PRN PRN Reason: SBP > 160 Furosemide 500 mg/ N/A 50 mls @ 1 mls/hr CONT INF .Q50H [facility] Last Admin: 01/09/21 20:06 Dose: 10 mg/hr, 1 mls/hr Documented by: Insulin Glargine (Insulin Glargine 100 Units/Ml Pen) 15 units SC DINNER@1700 [facility] Insulin Glargine (Insulin Glargine 100 Units/Ml Pen) 30 units SC BREAKFAST [facility] Last Admin: 01/10/21 08:19 Dose: 30 u Documented by: Insulin Human Lispro (Insulin Lispro 100 Unit/Ml Insuln.Pen) 0 unit SC ACHS [facility]; Protocol Last Admin: 01/10/21 06:46 Dose: Not Given Documented by: Isosorbide Mononitrate (Isosorbide Mononitrate 120 Mg Tablet) 120 mg PO DAILY [facility] Last Admin: 01/10/21 11:05 Dose: 120 mg Documented by: Ondansetron HCl (Ondansetron 4 Mg/2 Ml Vial) 4 mg IV Q8H PRN PRN PRN Reason: NAUSEA/VOMITING Oxycodone HCl (Oxycodone 5 Mg Tablet) 5 mg PO Q4H PRN PRN PRN Reason: Pain Score 4-10 Sodium Chloride (0.9% Saline Lock 10 Ml Syringe) 10 - 40 ml IV UD PRN PRN Reason: SALINE FLUSH Tamsulosin HCl (Tamsulosin Hcl 0.4 Mg Capsule) 0.4 mg PO DAILY@1730 [facility] Medical Necessity - Tobacco Use Smoking Status: Former smoker Assessment/Plan All Active Problems (Last Reviewed 10/09/20 @ 15:[address] Destin Cain, ) DEVAN (acute kidney injury) (Resolved) 1. Anasarca, chronic lymphedema, acutely worsened with chronic lower extremity venous stasis ulcerations-recently completed treatment for associated cellulitis. Recent duplex ultrasound negative for DVT. Appears improved from prior. Lasix drip. Consult nephrology for initiation of dialysis. 2. Chronic hypoxic respiratory failure secondary to chronic heart failure with preserved ejection fraction-Echocardiogram 10/10/2020 demonstrates an EF of 65%, RVSP estimated to be 63 mmHg. Lasix gtt as noted above. Continue supplemental oxygen to maintain O2 at or above 90%. 3. Chronic kidney disease stage IV-stable. Consult nephrology. 4. Chronic thrombocytopenia-stable. 5. Type 2 diabetes mellitus-Continue home insulin regimen. Accu-Cheks with sliding scale insulin. 6. Hypertension-stable, continue carvedilol, hydralazine, isosorbide. 7. Hyperlipidemia-continue statin. 8. Chronic anemia/anemia of chronic disease/iron deficiency anemia-at baseline, outpatient iron infusions. 9. Gout-on allopurinol. 10. Former tobacco use-encouraged continued cessation. 11. IMAN-continue home CPAP regimen. 12. BPH-continue Flomax. 13. Morbid obesity-encouraged diet lifestyle modifications. DVT prophylaxis-Heparin subcu CODE STATUS-DNR CCA no intubation This patient was seen by SHUN Allen under the supervision of Dr. Lam. <Jeyson Lam - Last Filed: 01/10/21 16:14> Objective: Seen and examined. Patient is well familiar with IV Lasix and he states this time is not working as potent/effective as before. Heart rate and blood pressure controlled. Physical exam General: Alert, Oriented x3, Cooperative, BMI 46.4 kg/m? HEENT: Atraumatic, PERRLA, EOMI, Normocephalic Oral: No Gingival or Mucosal Lesions/ Ulcerations Neck: Supple, No JVD, Negative Carotid Bruits Lungs: Air entry diminished in bilateral lung bases. No crepitation/rhonchi Cardiovascular: Regular rate, Regular Rhythm, Normal S1, Normal S2, No murmurs Abdomen: Bowel Sounds Present, Soft, Non Tender, Non-Distended : No renal angle tenderness. No suprapubic tenderness. Extremities: Generalized lymphedema of both lower extremities, abdominal wall mild upper extremity. Capillary Refill Less than 3 Seconds Skin: Chronic silvery scale, flakes and fissures with stasis dermatitis. Possible psoriasis Musculoskeletal: No Tenderness to Palpation of Joints or Extremities Neurological: Cranial nerves II-XII grossly intact, Deep Tendon Reflexes 2+/4 and Symmetrical, Neuro grossly intact Psych/Mental Status: Normal Affect, Appropriate. - Physical Exam Vitals/I&O's: Vital Signs Temp Pulse Resp BP Pulse Ox 98 F 60 18 128/48 H 98 01/10/21 14:00 01/10/21 14:57 01/10/21 14:00 01/10/21 14:57 01/10/21 14:00 Oxygen Flow Rate (L/min) 3 Oxygen Delivery Method Nasal Cannula Weight: 323 lb 3.163 oz Body Mass Index (BMI) 46.3 Finger Stick Blood Glucose 131 Intake and Output for Last 24 Hours 01/08/21 01/09/21 01/10/21 23:59 23:59 23:59 Intake Total 480 / 480 Output Total 550 / 550 Balance 480 / 480 -550 / -550 Laboratory Results 01/09/21 16:05: WBC 6.9, RBC 2.88 L, Hgb 8.9 L, Hct 29.9 L, MCV 103.8 H, MCH 30.9, MCHC 29.8 L, RDW Std Deviation 68.8 H, RDW Coeff of Gina 18.1 H, Plt Count 116 L, MPV 10.3, Immature Gran % (Auto) 0.400, Neut % (Auto) 89.2 H, Lymph % (Auto) 4.6 L, [place] % (Auto) 4.1, Eos % (Auto) 1.4, Baso % (Auto) 0.3, Absolute Neuts (auto) 6.2, Absolute Lymphs (auto) 0.32 L, Nucleated RBC % 0, Differential Comment SCANNED, Platelet Estimate SLT DEC, Hypochromasia 1+, Anisocytosis 1+, Macrocytosis 1+, Rouleaux 1+ 01/09/21 16:05: PT 15.5 H, INR 1.3, APTT 28.1 01/09/21 16:05: Sodium 142, Potassium 4.6, Chloride 108 H, Carbon Dioxide 30.0, Anion Gap 4 L, BUN 105 H*, Creatinine 2.85 H, Estim Creat Clear Calc 24.19, Est GFR (MDRD) Af Amer 28 L, Est GFR (MDRD) Non-Af 23 L, BUN/Creatinine Ratio 36.8 H , Glucose 120 H, Calcium 8.3 L, Phosphorus 4.8, Magnesium 2.6 01/09/21 21:54: POC Glucose 149 H 01/10/21 05:15: WBC 5.0, RBC 2.67 L, Hgb 8.1 L, Hct 28.0 L, MCV 104.9 H, MCH 30.3, MCHC 28.9 L, RDW Std Deviation 70.0 H, RDW Coeff of Gina 18.1 H, Plt Count 107 L, MPV 10.4, Immature Gran % (Auto) 0.200, Neut % (Auto) 79.4 H, Lymph % (Auto) 9.2 L, [place] % (Auto) 7.4, Eos % (Auto) 3.2, Baso % (Auto) 0.6, Absolute Neuts (auto) 4.0, Absolute Lymphs (auto) 0.46 L, Nucleated RBC % 0, Anisocytosis 1+ 01/10/21 05:15: Sodium 140, Potassium 4.6, Chloride 108 H, Carbon Dioxide 29.0, Anion Gap 3 L, BUN 100 H, Creatinine 2.75 H, Estim Creat Clear Calc 25.07, Est GFR (MDRD) Af Amer 29 L, Est GFR (MDRD) Non-Af 24 L, BUN/Creatinine Ratio 36.4 H , Glucose 124 H, Calcium 8.3 L, TSH 1.39 01/10/21 06:46: POC Glucose 124 H 01/10/21 11:19: POC Glucose 219 H Current Medications Acetaminophen (Acetaminophen 325 Mg Tablet) 650 mg PO Q6H PRN PRN PRN Reason: Pain Score 1-10/Temp > 100.7 F Albuterol Sulfate (Albuterol 2.5 Mg/3 Ml Vial.Neb.) 2.5 mg INHALATION Q2H PRN PRN PRN Reason: Dyspnea, wheezing Albuterol/Ipratropium (Ipratropium/Albuterol Sulfate 3 Ml Ampul.Neb) 3 ml INHALATION Q6HWA.RT [facility] Last Admin: 01/10/21 13:14 Dose: 3 ml Documented by: Allopurinol (Allopurinol 100 Mg Tablet) 100 mg PO DAILYCM [facility] Last Admin: 01/10/21 08:19 Dose: 100 mg Documented by: Aspirin (Aspirin 81 Mg Tab.Chew) 81 mg PO DAILYCM [facility] Last Admin: 01/10/21 08:19 Dose: 81 mg Documented by: Atorvastatin Calcium (Atorvastatin Calcium 80 Mg Tablet) 80 mg PO QHS [facility] Last Admin: 01/09/21 21:59 Dose: 80 mg Documented by: Carvedilol (Carvedilol 25 Mg Tablet) 50 mg PO BID [facility] Last Admin: 01/10/21 11:05 Dose: 50 mg Documented by: Clonidine (Clonidine Hcl 0.1 Mg Tablet) 0.3 mg PO BID [facility] Last Admin: 01/10/21 11:04 Dose: 0.3 mg Documented by: Heparin Sodium (Porcine) (Heparin Injection (Vial) 5,000 Unit/Ml Vial) 5,000 unit SC Q12 [facility] Last Admin: 01/10/21 11:05 Dose: 5,000 unit Documented by: Hydralazine HCl (Hydralazine 25 Mg Tablet) 25 mg PO TID [facility] Last Admin: 01/10/21 14:57 Dose: 25 mg Documented by: Hydralazine HCl (Hydralazine 20 Mg/Ml Vial) 10 mg IV Q4H PRN PRN PRN Reason: SBP > 160 Furosemide 500 mg/ N/A 50 mls @ 1 mls/hr CONT INF .Q50H [facility] Last Admin: 01/09/21 20:06 Dose: 10 mg/hr, 1 mls/hr Documented by: Insulin Glargine (Insulin Glargine 100 Units/Ml Pen) 15 units SC DINNER@1700 [facility] Insulin Glargine (Insulin Glargine 100 Units/Ml Pen) 30 units SC BREAKFAST [facility] Last Admin: 01/10/21 08:19 Dose: 30 u Documented by: Insulin Human Lispro (Insulin Lispro 100 Unit/Ml Insuln.Pen) 0 unit SC ACHS [facility]; Protocol Last Admin: 01/10/21 12:11 Dose: 2 u Documented by: Isosorbide Mononitrate (Isosorbide Mononitrate 120 Mg Tablet) 120 mg PO DAILY [facility] Last Admin: 01/10/21 11:05 Dose: 120 mg Documented by: Ondansetron HCl (Ondansetron 4 Mg/2 Ml Vial) 4 mg IV Q8H PRN PRN PRN Reason: NAUSEA/VOMITING Oxycodone HCl (Oxycodone 5 Mg Tablet) 5 mg PO Q4H PRN PRN PRN Reason: Pain Score 4-10 Sodium Chloride (0.9% Saline Lock 10 Ml Syringe) 10 - 40 ml IV UD PRN PRN Reason: SALINE FLUSH Tamsulosin HCl (Tamsulosin Hcl 0.4 Mg Capsule) 0.4 mg PO DAILY@1730 [facility] Assessment/Plan This patient was seen in conjunction with Meghann FINNEGAN. I have independently interviewed and examined the patient and reviewed pertinent history, examination findings, laboratory and plan of management. I have reviewed the note and agree with the documented findings with the few additional points. In brief, patient is 70-year-old morbid obesity gentleman admitted with anasarca, chronic lymphedema of lower extremities with silvery scales on lower extremities suspicious for psoriasis and chronic stasis dermatitis. Patient is on IV Lasix drip. Nephrology is consulted for opinion regarding dialysis. Other comorbidities include chronic hypoxic respiratory failure due to heart failure with preserved EF/diastolic heart failure. Rest of the comorbidities as mentioned above I have discussed my assessment with Meghann FINNEGAN and orders have been reviewed. Laboratory Results 01/09/21 16:05: WBC 6.9, RBC 2.88 L, Hgb 8.9 L, Hct 29.9 L, MCV 103.8 H, MCH 30.9, MCHC 29.8 L, RDW Std Deviation 68.8 H, RDW Coeff of Gina 18.1 H, Plt Count 116 L, MPV 10.3, Immature Gran % (Auto) 0.400, Neut % (Auto) 89.2 H, Lymph % (Auto) 4.6 L, [place] % (Auto) 4.1, Eos % (Auto) 1.4, Baso % (Auto) 0.3, Absolute Neuts (auto) 6.2, Absolute Lymphs (auto) 0.32 L, Nucleated RBC % 0, Differential Comment SCANNED, Platelet Estimate SLT DEC, Hypochromasia 1+, Anisocytosis 1+, Macrocytosis 1+, Rouleaux 1+ 01/09/21 16:05: PT 15.5 H, INR 1.3, APTT 28.1 01/09/21 16:05: Sodium 142, Potassium 4.6, Chloride 108 H, Carbon Dioxide 30.0, Anion Gap 4 L, BUN 105 H*, Creatinine 2.85 H, Estim Creat Clear Calc 24.19, Est GFR (MDRD) Af Amer 28 L, Est GFR (MDRD) Non-Af 23 L, BUN/Creatinine Ratio 36.8 H , Glucose 120 H, Calcium 8.3 L, Phosphorus 4.8, Magnesium 2.6 01/09/21 21:54: POC Glucose 149 H 01/10/21 05:15: WBC 5.0, RBC 2.67 L, Hgb 8.1 L, Hct 28.0 L, MCV 104.9 H, MCH 30.3, MCHC 28.9 L, RDW Std Deviation 70.0 H, RDW Coeff of Gina 18.1 H, Plt Count 107 L, MPV 10.4, Immature Gran % (Auto) 0.200, Neut % (Auto) 79.4 H, Lymph % (Auto) 9.2 L, [place] % (Auto) 7.4, Eos % (Auto) 3.2, Baso % (Auto) 0.6, Absolute Neuts (auto) 4.0, Absolute Lymphs (auto) 0.46 L, Nucleated RBC % 0, Anisocytosis 1+ 01/10/21 05:15: Sodium 140, Potassium 4.6, Chloride 108 H, Carbon Dioxide 29.0, Anion Gap 3 L, BUN 100 H, Creatinine 2.75 H, Estim Creat Clear Calc 25.07, Est GFR (MDRD) Af Amer 29 L, Est GFR (MDRD) Non-Af 24 L, BUN/Creatinine Ratio 36.4 H , Glucose 124 H, Calcium 8.3 L, TSH 1.39 01/10/21 06:46: POC Glucose 124 H 01/10/21 11:19: POC Glucose 219 H Inpatient E&M: 23488 Subs Hosp L2
[2021-01-10 11:26] LABS: Bedside Glucose 219 mg/dL (70-110)
[2021-01-10] MEDS: Insulin Lispro 100 UNIT/ML INSULN.PEN SC ×3 (12:11→21:20)
--- NOTE | 2021-01-10 13:01 | CASEMGMT ---
LW/POA forms in summary tab of ankur, pt's sister Shalini Tam is pt's POA. RAINE Strauss
--- NOTE | 2021-01-10 13:21 | CASEMGMT ---
SW is here from [facility], SW called [facility] and confirmed pt can return when ready. SW faxed updates. SW spoke w/pt, confirmed w/pt his plan also is to return to [facility] at discharge. Green sheet w/transport form and COVID form on chart in event pt can return to [facility] on the weekend. RAINE Strauss
--- NOTE | 2021-01-10 13:42 | CASEMGMT ---
Readmission chart review: Pt was initially admitted to PCU 12/25-12/30/20 for CHF exac, hypoxia and was discharged to [facility] on 2L nc. Pt returned to [facility] ED on 01/09/21 for increasing edema bilat legs and arms. Per note, SNF physician thinks pt need dialysis, pt does have fistula(placed in May) but has not been started in dialysis. Pt is currently on a lasix gtt and has a nephro c/s. Pt is on 3L nc. CM to follow for any further discharge planning/needs. SStlashae LOPEZ CM
[2021-01-10] MEDS: hydrALAZINE 25 MG Tablet PO ×2 (14:57→21:20)
[2021-01-10] MEDS: Tamsulosin HCl 0.4 MG Capsule PO (17:26)
[2021-01-10 17:51] LABS: Bedside Glucose 190 mg/dL (70-110)
[2021-01-10] MEDS: Atorvastatin Calcium 80 MG Tablet PO (21:20)
[2021-01-10 22:21] LABS: Bedside Glucose 178 mg/dL (70-110)
[2021-01-11] VITALS (20 sets, daily range): BP systolic 121–149; BP diastolic 37–72; PULSE 50–78; RESP 14–19; TEMP 36.4–36.6; O2SAT 96–98
[2021-01-11] MEDS: Furosemide 500 MG in Empty Viaflex 50 mL 1 EACH CONT INF (03:28)
[2021-01-11] MEDS: hydrALAZINE 25 MG Tablet PO ×3 (05:27→20:41)
[2021-01-11 06:33] LABS: Hemoglobin 7.9 g/dL (13.0-16.5); Mean Corp Hgb Conc 29.3 g/dL (32-36); Mean Corpuscular Hgb 30.7 pg (27.0-32.0); Mean Corpuscular Volume 105.1 fL (80-94); Mean Platelet Vol. 10.9 fl (6.2-12.0); POSITIVE MORPHOLOGY YES; Platelet Count 105 K/mm3 (150-450); RBC Distribution Width CV 18.1 % (11.6-14.6); RBC Distribution Width SD 69.2 fl (35.1-43.9); Red Blood Count 2.57 M/mm3 (4.6-6.2); White Blood Count 4.9 K/mm3 (4.4-11.0)
[2021-01-11 06:35] LABS: Scan Indicated on CBC? Y/N YES- FLAGS NOTED
[2021-01-11 06:50] LABS: Bedside Glucose 104 mg/dL (70-110)
[2021-01-11 07:04] LABS: Anion Gap 3 (5-15); BUN 103 mg/dL (7-18); BUN/Creat Ratio 38.6 RATIO (10-20); Calcium,Total 8.4 mg/dL (8.5-10.1); Chloride 108 mmol/L (98-107); Creatinine, Serum 2.67 mg/dL (0.70-1.30); EST Glomerular Filtration Rate 25 mL/min (>60); Est Glom Filt Rate - Afr Amer 30 mL/min (>60); Estimated Creatinine Clearance 25.82 ml/min; Glucose 109 mg/dL (74-106); Potassium 4.6 mmol/L (3.5-5.1); Sodium Level 139 mmol/L (136-145)
[2021-01-11] MEDS: Ipratropium/Albuterol Sulfate 3 ML AMPUL.NEB INHALATION ×3 (07:40→19:28)
[2021-01-11] MEDS: Aspirin 81 MG TAB.CHEW PO (08:21)
[2021-01-11] MEDS: Allopurinol 100 MG Tablet PO (08:21)
[2021-01-11] MEDS: Acetaminophen 325 MG Tablet 650 MG PO (08:26)
--- NOTE | 2021-01-11 10:29 | PCM.PROGNOTE ---
<Meghann Borges DIRECTOR OF ENGINEERING - Last Filed: 01/11/21 10:33> Subjective: Patient seen and examined. Resting comfortably in bed, in no acute distress. Breathing stable. - Physical Exam Vitals/I&O's: Vital Signs Temp Pulse Resp BP Pulse Ox 97.8 F 60 15 137/37 H 98 01/11/21 08:16 01/11/21 08:16 01/11/21 08:16 01/11/21 08:16 01/11/21 08:16 Oxygen Flow Rate (L/min) 3 Oxygen Delivery Method Nasal Cannula Weight: 323 lb 3.163 oz Body Mass Index (BMI) 46.3 Finger Stick Blood Glucose 131 Intake and Output for Last 24 Hours 01/09/21 01/10/21 01/11/21 23:59 23:59 23:59 Intake Total 480 / 480 240 / 240 31.37 / 31.37 Output Total 550 / 550 Balance 480 / 480 -310 / -310 31.37 / 31.37 General: Alert, Oriented x3, Cooperative HEENT: Atraumatic, PERRLA, EOMI, Normocephalic Neck: Supple, No JVD, Negative Carotid Bruits Lungs: Clear to auscultation, Diminished Cardiovascular: Regular rate, No murmurs Abdomen: Bowel Sounds Present, Soft, Non Tender, Non-Distended, Obese Extremities: No clubbing, No cyanosis, Capillary Refill Less than 3 Seconds, Edema - Bilateral lower extremities, chronic lymphedema Skin: No rashes, No breakdown, - - Bilateral lower extremity venous stasis ulcerations Musculoskeletal: No Tenderness to Palpation of Joints or Extremities Neurological: Cranial nerves II-XII grossly intact, Neuro grossly intact Psych/Mental Status: Normal Affect, Appropriate Laboratory Results 01/10/21 11:19: POC Glucose 219 H 01/10/21 17:22: POC Glucose 190 H 01/10/21 21:16: POC Glucose 178 H 01/11/21 05:12: WBC 4.9, RBC 2.57 L, Hgb 7.9 L, Hct 27.0 L, MCV 105.1 H, MCH 30.7, MCHC 29.3 L, RDW Std Deviation 69.2 H, RDW Coeff of Gina 18.1 H, Plt Count 105 L, MPV 10.9 01/11/21 05:12: Sodium 139, Potassium 4.6, Chloride 108 H, Carbon Dioxide 28.0, Anion Gap 3 L, BUN 103 H*, Creatinine 2.67 H, Estim Creat Clear Calc 25.82, Est GFR (MDRD) Af Amer 30 L, Est GFR (MDRD) Non-Af 25 L, BUN/Creatinine Ratio 38.6 H, Glucose 109 H, Calcium 8.4 L 01/11/21 06:44: POC Glucose 104 Current Medications Acetaminophen (Acetaminophen 325 Mg Tablet) 650 mg PO Q6H PRN PRN PRN Reason: Pain Score 1-10/Temp > 100.7 F Last Admin: 01/11/21 08:26 Dose: 650 mg Documented by: Albuterol Sulfate (Albuterol 2.5 Mg/3 Ml Vial.Neb.) 2.5 mg INHALATION Q2H PRN PRN PRN Reason: Dyspnea, wheezing Albuterol/Ipratropium (Ipratropium/Albuterol Sulfate 3 Ml Ampul.Neb) 3 ml INHALATION Q6HWA.RT [facility] Last Admin: 01/11/21 07:40 Dose: 3 ml Documented by: Allopurinol (Allopurinol 100 Mg Tablet) 100 mg PO DAILYCM [facility] Last Admin: 01/11/21 08:21 Dose: 100 mg Documented by: Aspirin (Aspirin 81 Mg Tab.Chew) 81 mg PO DAILYCM [facility] Last Admin: 01/11/21 08:21 Dose: 81 mg Documented by: Atorvastatin Calcium (Atorvastatin Calcium 80 Mg Tablet) 80 mg PO QHS [facility] Last Admin: 01/10/21 21:20 Dose: 80 mg Documented by: Carvedilol (Carvedilol 25 Mg Tablet) 50 mg PO BID [facility] Last Admin: 01/10/21 21:20 Dose: Not Given Documented by: Clonidine (Clonidine Hcl 0.1 Mg Tablet) 0.3 mg PO BID [facility] Last Admin: 01/10/21 21:19 Dose: 0.3 mg Documented by: Heparin Sodium (Porcine) (Heparin Injection (Vial) 5,000 Unit/Ml Vial) 5,000 unit SC Q12 [facility] Last Admin: 01/10/21 21:19 Dose: 5,000 unit Documented by: Hydralazine HCl (Hydralazine 25 Mg Tablet) 25 mg PO TID [facility] Last Admin: 01/11/21 05:27 Dose: 25 mg Documented by: Hydralazine HCl (Hydralazine 20 Mg/Ml Vial) 10 mg IV Q4H PRN PRN PRN Reason: SBP > 160 Furosemide 500 mg/ N/A 50 mls @ 1 mls/hr CONT INF .Q50H [facility] Last Admin: 01/11/21 03:28 Dose: 10 mg/hr, 1 mls/hr Documented by: Insulin Glargine (Insulin Glargine 100 Units/Ml Pen) 15 units SC DINNER@1700 [facility] Last Admin: 01/10/21 17:25 Dose: 15 u Documented by: Insulin Glargine (Insulin Glargine 100 Units/Ml Pen) 30 units SC BREAKFAST [facility] Last Admin: 01/11/21 08:22 Dose: 30 u Documented by: Insulin Human Lispro (Insulin Lispro 100 Unit/Ml Insuln.Pen) 0 unit SC ACHS [facility]; Protocol Last Admin: 01/11/21 06:48 Dose: Not Given Documented by: Isosorbide Mononitrate (Isosorbide Mononitrate 120 Mg Tablet) 120 mg PO DAILY [facility] Last Admin: 01/10/21 11:05 Dose: 120 mg Documented by: Ondansetron HCl (Ondansetron 4 Mg/2 Ml Vial) 4 mg IV Q8H PRN PRN PRN Reason: NAUSEA/VOMITING Oxycodone HCl (Oxycodone 5 Mg Tablet) 5 mg PO Q4H PRN PRN PRN Reason: Pain Score 4-10 Sodium Chloride (0.9% Saline Lock 10 Ml Syringe) 10 - 40 ml IV UD PRN PRN Reason: SALINE FLUSH Tamsulosin HCl (Tamsulosin Hcl 0.4 Mg Capsule) 0.4 mg PO DAILY@1730 [facility] Last Admin: 01/10/21 17:26 Dose: 0.4 mg Documented by: Medical Necessity - Tobacco Use Smoking Status: Former smoker Assessment/Plan All Active Problems (Last Reviewed 10/09/20 @ 15:[address] Destin Cain DO) DEVAN (acute kidney injury) (Resolved) 1. Anasarca, chronic lymphedema, acutely worsened with chronic lower extremity venous stasis ulcerations-recently completed treatment for associated cellulitis. Recent duplex ultrasound negative for DVT. Appears improved from prior. Lasix drip. Consult nephrology for initiation of dialysis. 2. Chronic hypoxic respiratory failure secondary to chronic heart failure with preserved ejection fraction-Echocardiogram 10/10/2020 demonstrates an EF of 65%, RVSP estimated to be 63 mmHg. Lasix gtt as noted above. Continue supplemental oxygen to maintain O2 at or above 90%. 3. Chronic kidney disease stage IV-stable. Consult nephrology. 4. Chronic thrombocytopenia-stable. 5. Type 2 diabetes mellitus-Continue home insulin regimen. Accu-Cheks with sliding scale insulin. 6. Hypertension-stable, continue carvedilol, hydralazine, isosorbide. 7. Hyperlipidemia-continue statin. 8. Chronic anemia/anemia of chronic disease/iron deficiency anemia-at baseline, outpatient iron infusions. 9. Gout-on allopurinol. 10. Former tobacco use-encouraged continued cessation. 11. IMAN-continue home CPAP regimen. 12. BPH-continue Flomax. 13. Morbid obesity-encouraged diet lifestyle modifications. DVT prophylaxis-Heparin subcu CODE STATUS-DNR CCA no intubation This patient was seen by SHUN Allen under the supervision of Dr. Lam. <Jeyson Lam - Last Filed: 01/11/21 14:09> Subjective: Seen and examined. Patient shortness of breath is better than yesterday. Upper and lower extremity swelling improving. Patient slept good on CPAP Objective: Physical exam General: Alert, Oriented x3, Cooperative, BMI 46.4 kg/m? HEENT: Atraumatic, PERRLA, EOMI, Normocephalic Oral: No Gingival or Mucosal Lesions/ Ulcerations Neck: Supple, No JVD, Negative Carotid Bruits Lungs: Air entry diminished in bilateral lung bases. No crepitation/rhonchi Cardiovascular: Regular rate, Regular Rhythm, Normal S1, Normal S2, No murmurs Abdomen: Bowel Sounds Present, Soft, Non Tender, Non-Distended : No renal angle tenderness. No suprapubic tenderness. Extremities: Generalized lymphedema lower extremities, abdominal wall mild upper extremity improving. Capillary Refill Less than 3 Seconds Skin: Chronic silvery scale, flakes and fissures with stasis dermatitis. Musculoskeletal: No Tenderness to Palpation of Joints or Extremities Neurological: Cranial nerves II-XII grossly intact, Deep Tendon Reflexes 2+/4 and Symmetrical, Neuro grossly intact Psych/Mental Status: Normal Affect, Appropriate. - Physical Exam Vitals/I&O's: Vital Signs Temp Pulse Resp BP Pulse Ox 98 F 58 L 17 149/44 H 98 01/11/21 11:10 01/11/21 12:34 01/11/21 11:10 01/11/21 11:10 01/11/21 11:10 Oxygen Flow Rate (L/min) 2 Oxygen Delivery Method Nasal Cannula Weight: 323 lb 3.163 oz Body Mass Index (BMI) 46.3 Finger Stick Blood Glucose 131 Intake and Output for Last 24 Hours 01/09/21 01/10/21 01/11/21 23:59 23:59 23:59 Intake Total 480 / 480 240 / 240 459.29 / 459.29 Output Total 550 / 550 Balance 480 / 480 -310 / -310 459.29 / 459.29 Laboratory Results 01/10/21 17:22: POC Glucose 190 H 01/10/21 21:16: POC Glucose 178 H 01/11/21 05:12: WBC 4.9, RBC 2.57 L, Hgb 7.9 L, Hct 27.0 L, MCV 105.1 H, MCH 30.7, MCHC 29.3 L, RDW Std Deviation 69.2 H, RDW Coeff of Gina 18.1 H, Plt Count 105 L, MPV 10.9 01/11/21 05:12: Sodium 139, Potassium 4.6, Chloride 108 H, Carbon Dioxide 28.0, Anion Gap 3 L, BUN 103 H*, Creatinine 2.67 H, Estim Creat Clear Calc 25.82, Est GFR (MDRD) Af Amer 30 L, Est GFR (MDRD) Non-Af 25 L, BUN/Creatinine Ratio 38.6 H, Glucose 109 H, Calcium 8.4 L 01/11/21 06:44: POC Glucose 104 01/11/21 11:17: POC Glucose 186 H Current Medications Acetaminophen (Acetaminophen 325 Mg Tablet) 650 mg PO Q6H PRN PRN PRN Reason: Pain Score 1-10/Temp > 100.7 F Last Admin: 01/11/21 08:26 Dose: 650 mg Documented by: Albuterol Sulfate (Albuterol 2.5 Mg/3 Ml Vial.Neb.) 2.5 mg INHALATION Q2H PRN PRN PRN Reason: Dyspnea, wheezing Albuterol/Ipratropium (Ipratropium/Albuterol Sulfate 3 Ml Ampul.Neb) 3 ml INHALATION Q6HWA.RT [facility] Last Admin: 01/11/21 13:54 Dose: 3 ml Documented by: Allopurinol (Allopurinol 100 Mg Tablet) 100 mg PO DAILYCM [facility] Last Admin: 01/11/21 08:21 Dose: 100 mg Documented by: Aspirin (Aspirin 81 Mg Tab.Chew) 81 mg PO DAILYCM [facility] Last Admin: 01/11/21 08:21 Dose: 81 mg Documented by: Atorvastatin Calcium (Atorvastatin Calcium 80 Mg Tablet) 80 mg PO QHS [facility] Last Admin: 01/10/21 21:20 Dose: 80 mg Documented by: Carvedilol (Carvedilol 25 Mg Tablet) 50 mg PO BID [facility] Last Admin: 01/11/21 11:12 Dose: 50 mg Documented by: Clonidine (Clonidine Hcl 0.1 Mg Tablet) 0.3 mg PO BID [facility] Last Admin: 01/11/21 11:11 Dose: Not Given Documented by: Furosemide (Furosemide 100 Mg/10 Ml Vial) 80 mg IV BID@1000,1800 [facility] Heparin Sodium (Porcine) (Heparin Injection (Vial) 5,000 Unit/Ml Vial) 5,000 unit SC Q12 [facility] Last Admin: 01/11/21 11:13 Dose: 5,000 unit Documented by: Hydralazine HCl (Hydralazine 25 Mg Tablet) 25 mg PO TID [facility] Last Admin: 01/11/21 05:27 Dose: 25 mg Documented by: Hydralazine HCl (Hydralazine 20 Mg/Ml Vial) 10 mg IV Q4H PRN PRN PRN Reason: SBP > 160 Insulin Glargine (Insulin Glargine 100 Units/Ml Pen) 15 units SC DINNER@1700 [facility] Last Admin: 01/10/21 17:25 Dose: 15 u Documented by: Insulin Glargine (Insulin Glargine 100 Units/Ml Pen) 30 units SC BREAKFAST [facility] Last Admin: 01/11/21 08:22 Dose: 30 u Documented by: Insulin Human Lispro (Insulin Lispro 100 Unit/Ml Insuln.Pen) 0 unit SC ACHS [facility]; Protocol Last Admin: 01/11/21 11:20 Dose: 1 u Documented by: Isosorbide Mononitrate (Isosorbide Mononitrate 120 Mg Tablet) 120 mg PO DAILY [facility] Last Admin: 01/11/21 11:13 Dose: 120 mg Documented by: Ondansetron HCl (Ondansetron 4 Mg/2 Ml Vial) 4 mg IV Q8H PRN PRN PRN Reason: NAUSEA/VOMITING Oxycodone HCl (Oxycodone 5 Mg Tablet) 5 mg PO Q4H PRN PRN PRN Reason: Pain Score 4-10 Sodium Chloride (0.9% Saline Lock 10 Ml Syringe) 10 - 40 ml IV UD PRN PRN Reason: SALINE FLUSH Last Admin: 01/11/21 11:07 Dose: 10 ml Documented by: Tamsulosin HCl (Tamsulosin Hcl 0.4 Mg Capsule) 0.4 mg PO DAILY@1730 [facility] Last Admin: 01/10/21 17:26 Dose: 0.4 mg Documented by: Assessment/Plan This patient was seen in conjunction with Meghann FINNEGAN. I have independently interviewed and examined the patient and reviewed pertinent history, examination findings, laboratory and plan of management. I have reviewed the note and agree with the documented findings with the few additional points. In brief, patient is 70-year-old morbid obesity gentleman admitted with anasarca, chronic lymphedema of lower extremities with silvery scales on lower extremities suspicious for psoriasis and chronic stasis dermatitis. Patient is on IV Lasix drip. Nephrology is consulted for opinion regarding dialysis. Continue IV Lasix drip. Patient is responding slowly. Other comorbidities include chronic hypoxic respiratory failure due to heart failure with preserved EF/diastolic heart failure. Rest of the comorbidities as mentioned above I have discussed my assessment with Meghann FINNEGAN and orders have been reviewed. Inpatient E&M: [id number] [facility] [address]
[2021-01-11] MEDS: 0.9% Saline Lock 10 ML Syringe IV ×2 (11:07→18:32)
[2021-01-11] MEDS: Carvedilol 25 MG Tablet 50 MG PO ×2 (11:12→20:41)
[2021-01-11] MEDS: Heparin Injection (Vial) 5,000 UNIT/ML VIAL 5000 UNIT SC ×2 (11:13→20:41)
[2021-01-11] MEDS: Insulin Lispro 100 UNIT/ML INSULN.PEN SC ×3 (11:20→20:40)
[2021-01-11 11:26] LABS: Bedside Glucose 186 mg/dL (70-110)
[2021-01-11] MEDS: Tamsulosin HCl 0.4 MG Capsule PO (17:12)
[2021-01-11 17:20] LABS: Bedside Glucose 214 mg/dL (70-110)
[2021-01-11] MEDS: Furosemide 100 MG/10 ML Vial 80 MG IV (18:31)
[2021-01-11] MEDS: cloNIDine HCl 0.1 MG Tablet 0.3 MG PO (20:41)
[2021-01-11] MEDS: Atorvastatin Calcium 80 MG Tablet PO (20:42)
[2021-01-11 21:45] LABS: Bedside Glucose 246 mg/dL (70-110)
[2021-01-12] VITALS (18 sets, daily range): BP systolic 117–148; BP diastolic 46–61; PULSE 50–75; RESP 12–18; TEMP 36.6–36.7; O2SAT 93–98
[2021-01-12 05:18] LABS: Hematocrit 25.8 % (40-54); Hemoglobin 7.7 g/dL (13.0-16.5); Mean Corp Hgb Conc 29.8 g/dL (32-36); Mean Corpuscular Hgb 31.3 pg (27.0-32.0); Mean Corpuscular Volume 104.9 fL (80-94); Mean Platelet Vol. 10.7 fl (6.2-12.0); POSITIVE MORPHOLOGY YES; Platelet Count 105 K/mm3 (150-450); RBC Distribution Width CV 18.1 % (11.6-14.6); RBC Distribution Width SD 69.1 fl (35.1-43.9); Red Blood Count 2.46 M/mm3 (4.6-6.2); White Blood Count 4.3 K/mm3 (4.4-11.0)
[2021-01-12 05:24] LABS: Scan Indicated on CBC? Y/N YES- FLAGS NOTED
[2021-01-12 05:35] LABS: Anion Gap 5 (5-15); BUN 98 mg/dL (7-18); BUN/Creat Ratio 35.8 RATIO (10-20); Chloride 105 mmol/L (98-107); Creatinine, Serum 2.74 mg/dL (0.70-1.30); EST Glomerular Filtration Rate 24 mL/min (>60); Est Glom Filt Rate - Afr Amer 30 mL/min (>60); Estimated Creatinine Clearance 25.16 ml/min; Glucose 154 mg/dL (74-106); Potassium 4.2 mmol/L (3.5-5.1); Sodium Level 139 mmol/L (136-145)
[2021-01-12] MEDS: hydrALAZINE 25 MG Tablet PO ×3 (06:34→21:15)
[2021-01-12] MEDS: Ipratropium/Albuterol Sulfate 3 ML AMPUL.NEB INHALATION ×3 (06:55→19:10)
[2021-01-12 06:56] LABS: Bedside Glucose 150 mg/dL (70-110)
[2021-01-12 08:32] LABS: AST(SGOT) 10 U/L (15-37); Alanine Aminotransfer ALT/SGPT 14 U/L (16-61); Albumin, Serum 2.5 g/dL (3.2-5.0); Alkaline Phosphatase 49 U/L (45-117); Bilirubin, Direct 0.24 mg/dL (0.00-0.30); Globulin 3.1 g/dL (2.2-4.2); Phosphorus 4.4 mg/dL (2.5-4.9); Protein, Total 5.6 g/dL (6.4-8.2)
[2021-01-12] MEDS: Furosemide 100 MG/10 ML Vial 80 MG IV ×2 (08:57→17:08)
[2021-01-12] MEDS: Heparin Injection (Vial) 5,000 UNIT/ML VIAL 5000 UNIT SC ×2 (08:57→21:16)
[2021-01-12] MEDS: Carvedilol 25 MG Tablet 50 MG PO ×2 (08:58→21:16)
[2021-01-12] MEDS: cloNIDine HCl 0.1 MG Tablet 0.3 MG PO ×2 (08:58→21:16)
[2021-01-12] MEDS: Aspirin 81 MG TAB.CHEW PO (08:58)
[2021-01-12] MEDS: Allopurinol 100 MG Tablet PO (08:58)
[2021-01-12] MEDS: 0.9% Saline Lock 10 ML Syringe IV ×2 (09:01→17:08)
--- NOTE | 2021-01-12 09:01 | PCM.CONS.R ---
Consultation - Renal 01/12/21 PCP/ Referring MD: Requesting physician: [] Primary care physician: Dr. Jean-Claude Garcia MD - History of Present Illness History of Present Illness: The patient is a 70 year old morbidly obese M with CKD stage 3 due to diabetes, hypertension, anasarca chronic from pulmonary hypertension transferred from [facility] by [facility] for leg edema that has been present chronically. He was recently seen in my office with lasix adjusted from 40mg daily to 80mg. Urine output has not improved much with dose change. He is diuresing well with iv lasix with significant improvement in edema since hospitalized. He denies increased SOB. He has IMAN on BIPAP. Appetite good with nausea, vomiting. He has an AVF left forearm placed by [facility] vascular surgeon in May 2020. Plan was to have the fistula resurfaced since it is deep with anticipated trouble with accessing site. He has been waiting on follow up with vascular surgeon. 24h urine CRCL 47cc/min on 11/2020, 43cc/min in September 2020. Creatinine stable at 2.7. - Allergies Allergies: Allergies ARB-Angiotensin Receptor Antagonist Allergy (Verified 01/09/21 16:07) WORSENS RENAL FUNCTION WORSENS RENAL FUNCTION amoxicillin Adverse Reaction (Verified 01/09/21 16:07) Upset Stomach - Current Medications Current Medications: Current Medications Acetaminophen (Acetaminophen 325 Mg Tablet) 650 mg PO Q6H PRN PRN PRN Reason: Pain Score 1-10/Temp > 100.7 F Last Admin: 01/11/21 08:26 Dose: 650 mg Documented by: Albuterol Sulfate (Albuterol 2.5 Mg/3 Ml Vial.Neb.) 2.5 mg INHALATION Q2H PRN PRN PRN Reason: Dyspnea, wheezing Albuterol/Ipratropium (Ipratropium/Albuterol Sulfate 3 Ml Ampul.Neb) 3 ml INHALATION Q6HWA.RT [facility] Last Admin: 01/12/21 06:55 Dose: 3 ml Documented by: Allopurinol (Allopurinol 100 Mg Tablet) [facility] Last Admin: 01/11/21 08:21 Dose: 100 mg Documented by: Aspirin (Aspirin 81 Mg Tab.Chew) [facility] Last Admin: 01/11/21 08:21 Dose: 81 mg Documented by: Atorvastatin Calcium (Atorvastatin Calcium 80 Mg Tablet) 80 mg PO QHS [facility] Last Admin: 01/11/21 20:42 Dose: 80 mg Documented by: Carvedilol (Carvedilol 25 Mg Tablet) 50 mg PO BID [facility] Last Admin: 01/11/21 20:41 Dose: 50 mg Documented by: Clonidine (Clonidine Hcl 0.1 Mg Tablet) 0.3 mg PO BID [facility] Last Admin: 01/11/21 20:41 Dose: 0.3 mg Documented by: Furosemide (Furosemide 100 Mg/10 Ml Vial) 80 mg IV BID@1000,1800 [facility] Last Admin: 01/11/21 18:31 Dose: 80 mg Documented by: Heparin Sodium (Porcine) (Heparin Injection (Vial) 5,000 Unit/Ml Vial) 5,000 unit SC Q12 [facility] Last Admin: 01/11/21 20:41 Dose: 5,000 unit Documented by: Hydralazine HCl (Hydralazine 25 Mg Tablet) 25 mg PO TID [facility] Last Admin: 01/12/21 06:34 Dose: 25 mg Documented by: Hydralazine HCl (Hydralazine 20 Mg/Ml Vial) 10 mg IV Q4H PRN PRN PRN Reason: SBP > 160 Insulin Glargine (Insulin Glargine 100 Units/Ml Pen) 15 units SC DINNER@1700 [facility] Last Admin: 01/11/21 17:12 Dose: 15 u Documented by: Insulin Glargine (Insulin Glargine 100 Units/Ml Pen) 30 units SC BREAKFAST [facility] Last Admin: 01/11/21 08:22 Dose: 30 u Documented by: Insulin Human Lispro (Insulin Lispro 100 Unit/Ml Insuln.Pen) 0 unit SC [facility]; Protocol Last Admin: 01/12/21 06:36 Dose: Not Given Documented by: Isosorbide Mononitrate (Isosorbide Mononitrate 120 Mg Tablet) 120 mg PO DAILY [facility] Last Admin: 01/11/21 11:13 Dose: 120 mg Documented by: Ondansetron HCl (Ondansetron 4 Mg/2 Ml Vial) 4 mg IV Q8H PRN PRN PRN Reason: NAUSEA/VOMITING Oxycodone HCl (Oxycodone 5 Mg Tablet) 5 mg PO Q4H PRN PRN PRN Reason: Pain Score 4-10 Sodium Chloride (0.9% Saline Lock 10 Ml Syringe) 10 - 40 ml IV UD PRN PRN Reason: SALINE FLUSH Last Admin: 01/11/21 18:32 Dose: 20 ml Documented by: Tamsulosin HCl (Tamsulosin Hcl 0.4 Mg Capsule) 0.4 mg PO DAILY@1730 [facility] Last Admin: 01/11/21 17:12 Dose: 0.4 mg Documented by: - Past Medical History Past Medical History (Chronic Problems): Chronic Problems (Last Reviewed 10/09/20 @ 15:[address] Destin Cain DO) (HFpEF) heart failure with preserved ejection fraction (Chronic) Chronic diastolic (congestive) heart failure (Chronic) Chronic kidney disease (CKD) (Chronic) Stage IV Debility (Chronic) Body mass index 45.0-49.9, adult (Chronic) Chronic obstructive pulmonary disease (Chronic) Allergic rhinitis (Chronic) Gout (Chronic) Vitamin D deficiency (Chronic) Tinea corporis (Chronic) Pulmonary hypertension (Chronic) Venous stasis ulcer of left lower extremity (Chronic) Chronic respiratory failure with hypoxia (Chronic) Morbid obesity (Chronic) Anemia (Chronic) Thrombocytopenia (Chronic) Diabetes mellitus, type II (Chronic) IMAN (obstructive sleep apnea) (Chronic) Secondary pulmonary arterial hypertension (Chronic) Right bundle branch block (RBBB) (Chronic) Essential (primary) hypertension (Chronic) Hyperlipidemia (Chronic) Lymphedema of both lower extremities (Chronic) - Past Surgical History Surgical History: cataract, - - AVF left radiocephalic, nasal cyst removal. - Social History Smoking Status: Former smoker Alcohol: None Drugs: None - Family History Sibling Family History: Family History (Last Reviewed 10/09/20 @ 15:[address] Destin Cain DO) Other Diabetes Heart disease Hypertension History Items: Heart Disease Paternal Family History: Family History (Last Reviewed 10/09/20 @ 15:[address] Destin Cain DO) Other Diabetes Heart disease Hypertension History Items: Cancer - Other with a history of possibly lymphoma., Diabetes Maternal Family History: Family History (Last Reviewed 10/09/20 @ 15:[address] Destin Cain DO) Other Diabetes Heart disease Hypertension History Items: Diabetes, Heart Disease, Hypertension Review of Systems Constitutional: Reports: Weakness - chronic. Denies: Anorexia, Chills, Fever HEENT: Denies: Head Aches Cardiovascular: Denies: Chest Pain Respiratory: Reports: Shortness of breath upon exertion - chronic, pulmonary hypertension. Denies: Cough Gastrointestinal: Denies: Abdominal Pain, Nausea, Vomiting Genitourinary: Denies: Dysuria Musculoskeletal: Reports: - - edema Skin: Denies: Rash Neurological: Reports: - - weakness, debilitation chronic Psychiatric: Reports: Anxiety, Depression Hematologic/ Lymphatic: Reports: Anemia. Denies: Hx of blood clot - Physical Exam Vitals/I&O's: Vital Signs Temp Pulse Resp BP Pulse Ox 98 F 71 14 148/61 H 96 01/12/21 08:49 01/12/21 08:49 01/12/21 08:49 01/12/21 08:49 01/12/21 08:49 Oxygen Flow Rate (L/min) 2 Oxygen Delivery Method Nasal Cannula Weight: 146.6 kg Body Mass Index (BMI) 46.3 Finger Stick Blood Glucose 131 Intake and Output for Last 24 Hours 01/10/21 01/11/21 01/12/21 23:59 23:59 23:59 Intake Total 240 / 240 1589.29 / 1589.29 50 / 50 Output Total 550 / 550 Balance -310 / -310 1589.29 / 1589.29 50 / 50 General: Alert, Oriented x3, Cooperative, No apparent distress, - - morbid obesity HEENT: PERRLA, EOMI Lungs: Clear to auscultation Cardiovascular: Regular rate, No rub noted Abdomen: Bowel Sounds Present, Soft, Non Tender, Distended, Obese Extremities: Edema Skin: No rashes Musculoskeletal: - - debilitated, morbidly obese Neurological: - - no tremor Psych/Mental Status: Normal Affect, Appropriate, Alert and oriented to time, place, person, mood and affect Laboratory Results 01/11/21 11:17: POC Glucose 186 H 01/11/21 17:05: POC Glucose 214 H 01/11/21 20:38: POC Glucose 246 H 01/12/21 04:42: WBC 4.3 L, RBC 2.46 L, Hgb 7.7 L, Hct 25.8 L, MCV 104.9 H, MCH 31.3, MCHC 29.8 L, RDW Std Deviation 69.1 H, RDW Coeff of Gina 18.1 H, Plt Count 105 L, MPV 10.7 01/12/21 04:42: Sodium 139, Potassium 4.2, Chloride 105, Carbon Dioxide 29.0, Anion Gap 5, BUN 98 H, Creatinine 2.74 H, Estim Creat Clear Calc 25.16, Est GFR (MDRD) Af Amer 30 L, Est GFR (MDRD) Non-Af 24 L, BUN/Creatinine Ratio 35.8 H, Glucose 154 H, Calcium 8.0 L 01/12/21 04:42: Phosphorus 4.4, Total Bilirubin 0.80, Direct Bilirubin 0.24, AST 10 L, ALT 14 L, Alkaline Phosphatase 49, Total Protein 5.6 L, Albumin 2.5 L, Globulin 3.1 01/12/21 06:32: POC Glucose 150 H Current Medications Acetaminophen (Acetaminophen 325 Mg Tablet) 650 mg PO Q6H PRN PRN PRN Reason: Pain Score 1-10/Temp > 100.7 F Last Admin: 01/11/21 08:26 Dose: 650 mg Documented by: Albuterol Sulfate (Albuterol 2.5 Mg/3 Ml Vial.Neb.) 2.5 mg INHALATION Q2H PRN PRN PRN Reason: Dyspnea, wheezing Albuterol/Ipratropium (Ipratropium/Albuterol Sulfate 3 Ml Ampul.Neb) 3 ml INHALATION Q6HWA.RT [facility] Last Admin: 01/12/21 06:55 Dose: 3 ml Documented by: Allopurinol (Allopurinol 100 Mg Tablet) 100 mg PO DAILYCM [facility] Last Admin: 01/11/21 08:21 Dose: 100 mg Documented by: Aspirin (Aspirin 81 Mg Tab.Chew) 81 mg PO DAILYCM [facility] Last Admin: 01/11/21 08:21 Dose: 81 mg Documented by: Atorvastatin Calcium (Atorvastatin Calcium 80 Mg Tablet) 80 mg PO QHS [facility] Last Admin: 01/11/21 20:42 Dose: 80 mg Documented by: Carvedilol (Carvedilol 25 Mg Tablet) 50 mg PO BID [facility] Last Admin: 01/11/21 20:41 Dose: 50 mg Documented by: Clonidine (Clonidine Hcl 0.1 Mg Tablet) 0.3 mg PO BID [facility] Last Admin: 01/11/21 20:41 Dose: 0.3 mg Documented by: Furosemide (Furosemide 100 Mg/10 Ml Vial) 80 mg IV BID@1000,1800 [facility] Last Admin: 01/11/21 18:31 Dose: 80 mg Documented by: Heparin Sodium (Porcine) (Heparin Injection (Vial) 5,000 Unit/Ml Vial) 5,000 unit SC Q12 [facility] Last Admin: 01/11/21 20:41 Dose: 5,000 unit Documented by: Hydralazine HCl (Hydralazine 25 Mg Tablet) 25 mg PO TID [facility] Last Admin: 01/12/21 06:34 Dose: 25 mg Documented by: Hydralazine HCl (Hydralazine 20 Mg/Ml Vial) 10 mg IV Q4H PRN PRN PRN Reason: SBP > 160 Insulin Glargine (Insulin Glargine 100 Units/Ml Pen) 15 units SC DINNER@1700 [facility] Last Admin: 01/11/21 17:12 Dose: 15 u Documented by: Insulin Glargine (Insulin Glargine 100 Units/Ml Pen) 30 units SC BREAKFAST [facility] Last Admin: 01/11/21 08:22 Dose: 30 u Documented by: Insulin Human Lispro (Insulin Lispro 100 Unit/Ml Insuln.Pen) 0 unit SC ACHS [facility]; Protocol Last Admin: 01/12/21 06:36 Dose: Not Given Documented by: Isosorbide Mononitrate (Isosorbide Mononitrate 120 Mg Tablet) 120 mg PO DAILY [facility] Last Admin: 01/11/21 11:13 Dose: 120 mg Documented by: Ondansetron HCl (Ondansetron 4 Mg/2 Ml Vial) 4 mg IV Q8H PRN PRN PRN Reason: NAUSEA/VOMITING Oxycodone HCl (Oxycodone 5 Mg Tablet) 5 mg PO Q4H PRN PRN PRN Reason: Pain Score 4-10 Sodium Chloride (0.9% Saline Lock 10 Ml Syringe) 10 - 40 ml IV UD PRN PRN Reason: SALINE FLUSH Last Admin: 01/11/21 18:32 Dose: 20 ml Documented by: Tamsulosin HCl (Tamsulosin Hcl 0.4 Mg Capsule) 0.4 mg PO DAILY@1730 [facility] Last Admin: 01/11/21 17:12 Dose: 0.4 mg Documented by: Assessment/Plan All Active Problems (Last Reviewed 10/09/20 @ 15:[address] Destin Cain, DO) DEVAN (acute kidney injury) (Resolved) 1. CKD stage 3 with CRCL 47cc/min in Nov 2020, AVF with thrill and bruit but deep and hope to have it revised. No need for hemodialysis. 2. Anasarca due to pulmonary hypertension. Diuresing well with iv lasix. Will switch to bumex po 1mg bid starting tomorrow 3. Anemia hgb low, check iron studies 4. DM2 5. HTN stable 6. Morbid obesity 7. Pulmonary hypertension 8. Debility at ECF
--- NOTE | 2021-01-12 10:48 | PN_ITS ---
<Meghann Borges CHICKEN CUTTER - Last Filed: 01/12/21 10:55> Subjective: Patient seen and examined. Reports improvement in swelling and breathing. Denies new symptoms or complaints. - Physical Exam Vitals/I&O's: Vital Signs Temp Pulse Resp BP Pulse Ox 98 F 71 14 148/61 H 96 01/12/21 08:49 01/12/21 08:49 01/12/21 08:49 01/12/21 08:49 01/12/21 08:49 Oxygen Flow Rate (L/min) 2 Oxygen Delivery Method Nasal Cannula Weight: 323 lb 3.163 oz Body Mass Index (BMI) 46.3 Finger Stick Blood Glucose 131 Intake and Output for Last 24 Hours 01/10/21 01/11/21 01/12/21 23:59 23:59 23:59 Intake Total 240 / 240 1589.29 / 1589.29 50 / 50 Output Total 550 / 550 Balance -310 / -310 1589.29 / 1589.29 50 / 50 General: Alert, Oriented x3, Cooperative HEENT: Atraumatic, PERRLA, EOMI, Normocephalic Neck: Supple, No JVD, Negative Carotid Bruits Lungs: Clear to auscultation, Diminished Cardiovascular: Regular rate, No murmurs Abdomen: Bowel Sounds Present, Soft, Non Tender, Non-Distended, Obese Extremities: No clubbing, No cyanosis, - - Bilateral lower extremities, chronic lymphedema Skin: No rashes, No breakdown, - - Bilateral lower extremity venous stasis ulcerations Musculoskeletal: No Tenderness to Palpation of Joints or Extremities Neurological: Cranial nerves II-XII grossly intact, Neuro grossly intact Psych/Mental Status: Normal Affect, Appropriate Laboratory Results 01/11/21 11:17: POC Glucose 186 H 01/11/21 17:05: POC Glucose 214 H 01/11/21 20:38: POC Glucose 246 H 01/12/21 04:42: WBC 4.3 L, RBC 2.46 L, Hgb 7.7 L, Hct 25.8 L, MCV 104.9 H, MCH 31.3, MCHC 29.8 L, RDW Std Deviation 69.1 H, RDW Coeff of Gina 18.1 H, Plt Count 105 L, MPV 10.7 01/12/21 04:42: Sodium 139, Potassium 4.2, Chloride 105, Carbon Dioxide 29.0, Anion Gap 5, BUN 98 H, Creatinine 2.74 H, Estim Creat Clear Calc 25.16, Est GFR (MDRD) Af Amer 30 L, Est GFR (MDRD) Non-Af 24 L, BUN/Creatinine Ratio 35.8 H, Glucose 154 H, Calcium 8.0 L 01/12/21 04:42: Phosphorus 4.4, Total Bilirubin 0.80, Direct Bilirubin 0.24, AST 10 L, ALT 14 L, Alkaline Phosphatase 49, Total Protein 5.6 L, Albumin 2.5 L, Globulin 3.1 01/12/21 06:32: POC Glucose 150 H Current Medications Acetaminophen (Acetaminophen 325 Mg Tablet) 650 mg PO Q6H PRN PRN PRN Reason: Pain Score 1-10/Temp > 100.7 F Last Admin: 01/11/21 08:26 Dose: 650 mg Documented by: Albuterol Sulfate (Albuterol 2.5 Mg/3 Ml Vial.Neb.) 2.5 mg INHALATION Q2H PRN PRN PRN Reason: Dyspnea, wheezing Albuterol/Ipratropium (Ipratropium/Albuterol Sulfate 3 Ml Ampul.Neb) 3 ml INHALATION Q6HWA.RT [facility] Last Admin: 01/12/21 06:55 Dose: 3 ml Documented by: Allopurinol (Allopurinol 100 Mg Tablet) 100 mg PO DAILYCM [facility] Last Admin: 01/12/21 08:58 Dose: 100 mg Documented by: Aspirin (Aspirin 81 Mg Tab.Chew) 81 mg PO DAILYCM [facility] Last Admin: 01/12/21 08:58 Dose: 81 mg Documented by: Atorvastatin Calcium (Atorvastatin Calcium 80 Mg Tablet) 80 mg PO QHS [facility] Last Admin: 01/11/21 20:42 Dose: 80 mg Documented by: Bumetanide (Bumetanide 0.5 Mg Tablet) 1 mg PO BID [facility] Carvedilol (Carvedilol 25 Mg Tablet) 50 mg PO BID [facility] Last Admin: 01/12/21 08:58 Dose: 50 mg Documented by: Clonidine (Clonidine Hcl 0.1 Mg Tablet) 0.3 mg PO BID [facility] Last Admin: 01/12/21 08:58 Dose: 0.3 mg Documented by: Furosemide (Furosemide 100 Mg/10 Ml Vial) 80 mg IV BID@1000,1800 [facility] Last Admin: 01/12/21 08:57 Dose: 80 mg Documented by: Heparin Sodium (Porcine) (Heparin Injection (Vial) 5,000 Unit/Ml Vial) 5,000 unit SC Q12 [facility] Last Admin: 01/12/21 08:57 Dose: 5,000 unit Documented by: Hydralazine HCl (Hydralazine 25 Mg Tablet) 25 mg PO TID [facility] Last Admin: 01/12/21 06:34 Dose: 25 mg Documented by: Hydralazine HCl (Hydralazine 20 Mg/Ml Vial) 10 mg IV Q4H PRN PRN PRN Reason: SBP > 160 Insulin Glargine (Insulin Glargine 100 Units/Ml Pen) 15 units SC DINNER@1700 [facility] Last Admin: 01/11/21 17:12 Dose: 15 u Documented by: Insulin Glargine (Insulin Glargine 100 Units/Ml Pen) 30 units SC BREAKFAST [facility] Last Admin: 01/12/21 08:59 Dose: 30 u Documented by: Insulin Human Lispro (Insulin Lispro 100 Unit/Ml Insuln.Pen) 0 unit SC ACHS [facility]; Protocol Last Admin: 01/12/21 06:36 Dose: Not Given Documented by: Isosorbide Mononitrate (Isosorbide Mononitrate 120 Mg Tablet) 120 mg PO DAILY [facility] Last Admin: 01/12/21 08:59 Dose: 120 mg Documented by: Ondansetron HCl (Ondansetron 4 Mg/2 Ml Vial) 4 mg IV Q8H PRN PRN PRN Reason: NAUSEA/VOMITING Oxycodone HCl (Oxycodone 5 Mg Tablet) 5 mg PO Q4H PRN PRN PRN Reason: Pain Score 4-10 Sodium Chloride (0.9% Saline Lock 10 Ml Syringe) 10 - 40 ml IV UD PRN PRN Reason: SALINE FLUSH Last Admin: 01/12/21 09:01 Dose: 20 ml Documented by: Tamsulosin HCl (Tamsulosin Hcl 0.4 Mg Capsule) 0.4 mg PO DAILY@1730 [facility] Last Admin: 01/11/21 17:12 Dose: 0.4 mg Documented by: Medical Necessity - Tobacco Use Smoking Status: Former smoker Assessment/Plan All Active Problems (Last Reviewed 10/09/20 @ 15:[address] Destin Cain, DO) DEVAN (acute kidney injury) (Resolved) 1. Anasarca, chronic lymphedema, acutely worsened with chronic lower extremity venous stasis ulcerations-recently completed treatment for associated cellulitis. Recent duplex ultrasound negative for DVT. Nephrology consulted. Continue IV Lasix. Plan for transition to Bumex tomorrow. 2. Chronic hypoxic respiratory failure secondary to chronic heart failure with preserved ejection fraction-Echocardiogram 10/10/2020 demonstrates an EF of 65%, RVSP estimated to be 63 mmHg. IV Lasix as noted above. Continue supplemental oxygen to maintain O2 at or above 90%. 3. Chronic kidney disease stage IV-nephrology following. Per nephrology, patient's AV fistula needs revision. Not a candidate for long-term dialysis at this point. Continue diuretics. 4. Chronic thrombocytopenia-stable. 5. Type 2 diabetes mellitus-Continue home insulin regimen. Accu-Cheks with sliding scale insulin. 6. Hypertension-stable, continue carvedilol, hydralazine, isosorbide. 7. Hyperlipidemia-continue statin. 8. Chronic anemia/anemia of chronic disease/iron deficiency anemia-at baseline, outpatient iron infusions. 9. Gout-on allopurinol. 10. Former tobacco use-encouraged continued cessation. 11. IMAN-continue home CPAP regimen. 12. BPH-continue Flomax. 13. Morbid obesity-encouraged diet lifestyle modifications. DVT prophylaxis-Heparin subcu CODE STATUS-DNR CCA no intubation This patient was seen by SHUN Allen under the supervision of Dr. Kearney. <Melody Kearney - Last Filed: 01/13/21 07:39> - Physical Exam Vitals/I&O's: Vital Signs Temp Pulse Resp BP Pulse Ox 97.8 F 57 L 16 111/43 L 99 01/13/21 05:45 01/13/21 05:49 01/13/21 05:45 01/13/21 05:45 01/13/21 05:45 Oxygen Flow Rate (L/min) 2 Oxygen Delivery Method CPAP Weight: 147.4 kg Body Mass Index (BMI) 46.3 Finger Stick Blood Glucose 131 Intake and Output for Last 24 Hours 01/11/21 01/12/21 01/13/21 23:59 23:59 23:59 Intake Total 1589.29 / 1589.29 1490 / 1490 120 / 120 Balance 1589.29 / 1589.29 1490 / 1490 120 / 120 Laboratory Results 01/12/21 04:42: Phosphorus 4.4, Total Bilirubin 0.80, Direct Bilirubin 0.24, AST 10 L, ALT 14 L, Alkaline Phosphatase 49, Total Protein 5.6 L, Albumin 2.5 L, Globulin 3.1 01/12/21 04:42: Iron 30 L, Ferritin 226 01/12/21 11:20: POC Glucose 183 H 01/12/21 17:02: POC Glucose 183 H 01/12/21 21:14: POC Glucose 179 H 01/13/21 06:25: WBC 3.4 L, RBC 2.50 L, Hgb 7.6 L, Hct 25.9 L, MCV 103.6 H, MCH 30.4, MCHC 29.3 L, RDW Std Deviation 68.0 H, RDW Coeff of Gina 18.0 H, Plt Count 96 L, MPV 11.0 01/13/21 06:25: Sodium Pending, Potassium Pending, Chloride Pending, Carbon Dioxide Pending, Anion Gap Pending, BUN Pending, Creatinine Pending, Est GFR (MDRD) Af Amer Pending, Est GFR (MDRD) Non-Af Pending, BUN/Creatinine Ratio Pending, Glucose Pending, Calcium Pending, Phosphorus Pending, Total Bilirubin Pending, AST Pending, ALT Pending, Alkaline Phosphatase Pending, Total Protein Pending, Albumin Pending 01/13/21 06:36: POC Glucose 118 H Current Medications Acetaminophen (Acetaminophen 325 Mg Tablet) 650 mg PO Q6H PRN PRN PRN Reason: Pain Score 1-10/Temp > 100.7 F Last Admin: 01/12/21 17:08 Dose: 650 mg Documented by: Albuterol Sulfate (Albuterol 2.5 Mg/3 Ml Vial.Neb.) 2.5 mg INHALATION Q2H PRN PRN PRN Reason: Dyspnea, wheezing Albuterol/Ipratropium (Ipratropium/Albuterol Sulfate 3 Ml Ampul.Neb) 3 ml INHALATION Q6HWA.RT [facility] Last Admin: 01/13/21 07:20 Dose: 3 ml Documented by: Allopurinol (Allopurinol 100 Mg Tablet) 100 mg PO DAILYCM [facility] Last Admin: 01/12/21 08:58 Dose: 100 mg Documented by: Aspirin (Aspirin 81 Mg Tab.Chew) 81 mg PO DAILYCM [facility] Last Admin: 01/12/21 08:58 Dose: 81 mg Documented by: Atorvastatin Calcium (Atorvastatin Calcium 80 Mg Tablet) 80 mg PO QHS [facility] Last Admin: 01/12/21 21:15 Dose: 80 mg Documented by: Bumetanide (Bumetanide 0.5 Mg Tablet) 1 mg PO BID [facility] Carvedilol (Carvedilol 25 Mg Tablet) 50 mg PO BID [facility] Last Admin: 01/12/21 21:16 Dose: 50 mg Documented by: Clonidine (Clonidine Hcl 0.1 Mg Tablet) 0.3 mg PO BID [facility] Last Admin: 01/12/21 21:16 Dose: 0.3 mg Documented by: Furosemide (Furosemide 100 Mg/10 Ml Vial) 80 mg IV BID@1000,1800 [facility] Last Admin: 01/12/21 17:08 Dose: 80 mg Documented by: Heparin Sodium (Porcine) (Heparin Injection (Vial) 5,000 Unit/Ml Vial) 5,000 unit SC Q12 [facility] Last Admin: 01/12/21 21:16 Dose: 5,000 unit Documented by: Hydralazine HCl (Hydralazine 25 Mg Tablet) 25 mg PO TID [facility] Last Admin: 01/13/21 05:49 Dose: 25 mg Documented by: Hydralazine HCl (Hydralazine 20 Mg/Ml Vial) 10 mg IV Q4H PRN PRN PRN Reason: SBP > 160 Insulin Glargine (Insulin Glargine 100 Units/Ml Pen) 15 units SC DINNER@1700 [facility] Last Admin: 01/12/21 17:09 Dose: 15 u Documented by: Insulin Glargine (Insulin Glargine 100 Units/Ml Pen) 30 units SC BREAKFAST [facility] Last Admin: 01/12/21 08:59 Dose: 30 u Documented by: Insulin Human Lispro (Insulin Lispro 100 Unit/Ml Insuln.Pen) 0 unit SC ACHS [facility]; Protocol Last Admin: 01/13/21 06:46 Dose: Not Given Documented by: Isosorbide Mononitrate (Isosorbide Mononitrate 120 Mg Tablet) 120 mg PO DAILY [facility] Last Admin: 01/12/21 08:59 Dose: 120 mg Documented by: Ondansetron HCl (Ondansetron 4 Mg/2 Ml Vial) 4 mg IV Q8H PRN PRN PRN Reason: NAUSEA/VOMITING Oxycodone HCl (Oxycodone 5 Mg Tablet) 5 mg PO Q4H PRN PRN PRN Reason: Pain Score 4-10 Sodium Chloride (0.9% Saline Lock 10 Ml Syringe) 10 - 40 ml IV UD PRN PRN Reason: SALINE FLUSH Last Admin: 01/12/21 17:08 Dose: 20 ml Documented by: Tamsulosin HCl (Tamsulosin Hcl 0.4 Mg Capsule) 0.4 mg PO DAILY@1730 [facility] Last Admin: 01/12/21 17:08 Dose: 0.4 mg Documented by: Assessment/Plan This patient was seen in conjunction with Meghann Borges NP. I have independently interviewed and examined the patient and reviewed pertinent historical, laboratory, and other data. Please refer to her note for patient's presentation, findings, and recommendations. Patient was seen and examined. No acute events overnight. He is breathing better. Denies chest pain or dizziness Vitals were reviewed -stable Physical Exam: Gen: Morbidly obese, not pale, not jaundiced, alert oriented x3 CVS:HS I +II, regular, 3/6 holosystolic murmurs, left forearm AVF thrill RESP: Diminished at lung bases GI: BS present and normal, nontender, no palpable organs EXT:Bilateral leg edema, bilateral YESSY-wraps, chronic venous stasis dermatitis Labs reviewed: ASSESSMENT: 1. Anarsarca/acute on chronic lymphedema/cellulitis 2. Chronic hypoxic resp failure 3. CKD stage 3/4 4. Type 2 DM 5. Hypertension 6. Hyperlipidemia 7. IMAN 8. Morbid obesity Meds reviewed Plan: Continue on Lasix and Bumex Trend labs [facility] DC in am to SNF Inpatient E&M: [id number] Subs Hosp L2
[2021-01-12] MEDS: Insulin Lispro 100 UNIT/ML INSULN.PEN SC ×3 (11:22→21:16)
[2021-01-12 11:26] LABS: Bedside Glucose 183 mg/dL (70-110)
--- NOTE | 2021-01-12 13:40 | NURSING ---
skin photo: right lower leg
--- NOTE | 2021-01-12 13:41 | NURSING ---
wound photo: left anterior ankle/dorsal foot
--- NOTE | 2021-01-12 13:42 | NURSING ---
wound photo: left heel
[2021-01-12 14:16] LABS: Ferritin 226 ng/mL (26-388); Iron 30 ug/dL (65-175)
--- NOTE | 2021-01-12 16:22 | CASEMGMT ---
Pt may be ready for discharged tomorrow, updates faxed to [facility] Stra[facility]
[2021-01-12] MEDS: Tamsulosin HCl 0.4 MG Capsule PO (17:08)
[2021-01-12] MEDS: Acetaminophen 325 MG Tablet 650 MG PO (17:08)
[2021-01-12 17:36] LABS: Bedside Glucose 183 mg/dL (70-110)
[2021-01-12] MEDS: Atorvastatin Calcium 80 MG Tablet PO (21:15)
[2021-01-12 21:31] LABS: Bedside Glucose 179 mg/dL (70-110)
[2021-01-13] VITALS (15 sets, daily range): BP systolic 111–169; BP diastolic 43–54; PULSE 53–76; RESP 15–21; TEMP 36–36.6; O2SAT 92–99
[2021-01-13] MEDS: hydrALAZINE 25 MG Tablet PO ×2 (05:49→13:49)
[2021-01-13 06:46] LABS: Bedside Glucose 118 mg/dL (70-110)
[2021-01-13 07:06] LABS: Hematocrit 25.9 % (40-54); Hemoglobin 7.6 g/dL (13.0-16.5); Mean Corp Hgb Conc 29.3 g/dL (32-36); Mean Corpuscular Hgb 30.4 pg (27.0-32.0); Mean Corpuscular Volume 103.6 fL (80-94); POSITIVE COUNT YES; POSITIVE MORPHOLOGY YES; White Blood Count 3.4 K/mm3 (4.4-11.0)
[2021-01-13 07:11] LABS: Scan Indicated on CBC? Y/N YES- FLAGS NOTED
[2021-01-13] MEDS: Ipratropium/Albuterol Sulfate 3 ML AMPUL.NEB INHALATION ×2 (07:20→13:43)
[2021-01-13 07:34] LABS: ALB/GLOB Ratio 0.8 RATIO (0.9-2.4); AST(SGOT) 13 U/L (15-37); Alanine Aminotransfer ALT/SGPT 16 U/L (16-61); Albumin, Serum 2.5 g/dL (3.2-5.0); Alkaline Phosphatase 51 U/L (45-117); Anion Gap 4 (5-15); BUN 92 mg/dL (7-18); BUN/Creat Ratio 37.2 RATIO (10-20); Calcium,Total 8.4 mg/dL (8.5-10.1); Chloride 105 mmol/L (98-107); Creatinine, Serum 2.47 mg/dL (0.70-1.30); EST Glomerular Filtration Rate 28 mL/min (>60); Est Glom Filt Rate - Afr Amer 33 mL/min (>60); Estimated Creatinine Clearance 27.91 ml/min; Globulin 3.1 g/dL (2.2-4.2); Glucose 120 mg/dL (74-106); Phosphorus 4.1 mg/dL (2.5-4.9); Potassium 4.1 mmol/L (3.5-5.1); Protein, Total 5.6 g/dL (6.4-8.2); Sodium Level 140 mmol/L (136-145)
[2021-01-13 07:54] LABS: Platelet Count 96 K/mm3 (150-450)
[2021-01-13] MEDS: cloNIDine HCl 0.1 MG Tablet 0.3 MG PO (08:07)
[2021-01-13] MEDS: Aspirin 81 MG TAB.CHEW PO (08:07)
[2021-01-13] MEDS: Carvedilol 25 MG Tablet 50 MG PO (08:07)
[2021-01-13] MEDS: Allopurinol 100 MG Tablet PO (08:07)
[2021-01-13] MEDS: Heparin Injection (Vial) 5,000 UNIT/ML VIAL 5000 UNIT SC (08:08)
[2021-01-13] MEDS: Bumetanide 0.5 MG Tablet 1 MG PO (08:08)
--- NOTE | 2021-01-13 10:03 | TREXTCA.CO_ITS ---
- Diet 01/10/21 15:06 Diet: Renal - ConsCHO - Babar Cont Is pt able to select menu?: Yes How many daily calories?: 1999 calorie - Routine Orders/Code Status Enema Type: Fleetz Enema Frequency: Daily PRN Suppository Type: Dulcolax 10mg Suppository Frequency: Daily PRN O2 Liters per Minute: 2-4 O2 Frequency: Continuous Keep PO Greater than or Equal to (%): 90 Routine Lab Work: - - Weekly CBC, BMP Code Status: DNRCC-A - no intubation - Wound(s) LEFT HEEL Wound Type: Pressure Injury Dressing Change: Dry Sterile Dressing left anterior ankle Wound Type: Abrasion Dressing Change: Aquacel left dorsal foot Wound Type: Abrasion Dressing Change: Aquacel - Suggestions for Active Care Change Position every (hours): 2 Times a day to sit in chair: 3 - Therapies Physical Therapy: Eval and Treat Occupational Therapy: Eval and Treat - Problem/Diagnosis (1) (HFpEF) heart failure with preserved ejection fraction Status: Chronic (2) Chronic diastolic (congestive) heart failure Status: Chronic (3) Chronic kidney disease (CKD) Status: Chronic Comment: Stage IV (4) Debility Status: Chronic (5) Body mass index 45.0-49.9, adult Status: Chronic (6) Chronic obstructive pulmonary disease Status: Chronic (7) Allergic rhinitis Status: Chronic (8) Gout Status: Chronic (9) Vitamin D deficiency Status: Chronic (10) Tinea corporis Status: Chronic (11) Pulmonary hypertension Status: Chronic (12) Venous stasis ulcer of left lower extremity Status: Chronic (13) Chronic respiratory failure with hypoxia Status: Chronic (14) Morbid obesity Status: Chronic (15) Anemia Status: Chronic (16) Thrombocytopenia Status: Chronic (17) Diabetes mellitus, type II Status: Chronic (18) IMAN (obstructive sleep apnea) Status: Chronic (19) Secondary pulmonary arterial hypertension Status: Chronic (20) Right bundle branch block (RBBB) Status: Chronic (21) Essential (primary) hypertension Status: Chronic (22) Hyperlipidemia Status: Chronic (23) Lymphedema of both lower extremities Status: Chronic - Allergies/Procedures Done in Hospital Allergies/Adverse Reactions: Allergies ARB-Angiotensin Receptor Antagonist Allergy (Verified 01/09/21 16:07) WORSENS RENAL FUNCTION WORSENS RENAL FUNCTION amoxicillin Adverse Reaction (Verified 01/09/21 16:07) Upset Stomach Procedures: None - Type of Care/Length of Stay Estimated LOS: Convalescent Care Less Than 30 days Type of Care Needed: Skilled Rehab Potential: Fair Prognosis: Fair - Additional Orders/Day of Discharge H&P will serve as current which was dated: 01/09/21 Day of Discharge: 01/13/21 - Dietary and Speech Recommendations Dietitian Recommendations/Changes: will switch to renal, consistent CHO diet - Follow Up Care Primary Care Physician: Jean-Claude Garcia MD [Primary Care Provider] - Please follow up with your Primary Care Physician in: 1 Week Please Follow Up With: Vickie Gutierrez DO When: As scheduled 01/28/21 Please Follow Up With: Josué Caal STRATEGIC DEBRIEFING SPECIALIST, STRATEGIC DEBRIEFING SPECIALIST-C When: as scheduled 01/14/21
--- NOTE | 2021-01-13 10:12 | DS.PCM_ITS ---
<Meghann Borges KNOT BU[employer]ER - Last Filed: 01/13/21 10:26> Discharge Date and Diagnosis Date of Admission: 01/09/21 Date of Discharge: 01/13/21 - Primary Discharge Diagnosis Acute Problems: 1. Anasarca, chronic lymphedema, acutely worsened with chronic lower extremity venous stasis ulcerations 2. Chronic hypoxic respiratory failure secondary to chronic heart failure with preserved ejection fraction 3. Chronic kidney disease stage IV 4. Chronic thrombocytopenia 5. Type 2 diabetes mellitus 6. Hypertension 7. Hyperlipidemia 8. Chronic anemia/anemia of chronic disease/iron deficiency anemia 9. Gout 10. Former tobacco use 11. IMAN 12. BPH 13. Morbid obesity - Secondary Discharge Diagnosis Chronic Problems: Chronic Problems (Last Reviewed 10/09/20 @ 15:[address] Destin Cain DO) (HFpEF) heart failure with preserved ejection fraction (Chronic) Chronic diastolic (congestive) heart failure (Chronic) Chronic kidney disease (CKD) (Chronic) Stage IV Debility (Chronic) Body mass index 45.0-49.9, adult (Chronic) Chronic obstructive pulmonary disease (Chronic) Allergic rhinitis (Chronic) Gout (Chronic) Vitamin D deficiency (Chronic) Tinea corporis (Chronic) Pulmonary hypertension (Chronic) Venous stasis ulcer of left lower extremity (Chronic) Chronic respiratory failure with hypoxia (Chronic) Morbid obesity (Chronic) Anemia (Chronic) Thrombocytopenia (Chronic) Diabetes mellitus, type II (Chronic) IMAN (obstructive sleep apnea) (Chronic) Secondary pulmonary arterial hypertension (Chronic) Right bundle branch block (RBBB) (Chronic) Essential (primary) hypertension (Chronic) Hyperlipidemia (Chronic) Lymphedema of both lower extremities (Chronic) Hospital Course and Treatment Consultations 01/09/21 18:17 Consult: Onc/Wound/relish maker Routine Comment: Dr. Gutierrez- Nephrology Operations: None Procedures: None Summary of Care Provided: The patient is a 70 year old M admitted 01/09/21 due to shortness of breath and increased swelling. 1. Anasarca, chronic lymphedema, acutely worsened with chronic lower extremity venous stasis ulcerations-recently completed treatment for associated cellulitis. Recent duplex ultrasound negative for DVT. Nephrology consulted during admission. IV Lasix during admission with transition to oral Bumex at discharge. Patient has upcoming follow-up with nephrology 01/28/2021. 2. Chronic hypoxic respiratory failure secondary to chronic heart failure with preserved ejection fraction-Echocardiogram 10/10/2020 demonstrates an EF of 65%, RVSP estimated to be 63 mmHg. Patient has remained on baseline oxygen since admission. Continue supplement oxygen to maintain O2 at above 90%. Continue Bumex. 3. Chronic kidney disease stage IV-nephrology following. Not a candidate for long-term dialysis at this point. Patient has left upper extremity fistula which was previously suspected to need revision prior to use however with the use of a short needle, may be appropriate for use. Per nephrology, dialysis not indicated at this time, plan for outpatient follow-up as noted above. 4. Chronic thrombocytopenia-stable. 5. Type 2 diabetes mellitus-Continue home insulin regimen. 6. Hypertension-stable, continue carvedilol, hydralazine, isosorbide. 7. Hyperlipidemia-continue statin. 8. Chronic anemia/anemia of chronic disease/iron deficiency anemia-at baseline, outpatient iron infusions. 9. Gout-on allopurinol. 10. Former tobacco use-encouraged continued cessation. 11. IMAN-continue home CPAP regimen. 12. BPH-continue Flomax. 13. Morbid obesity-encouraged diet lifestyle modifications. General: Alert, Oriented x3, Cooperative HEENT: Atraumatic, PERRLA, EOMI, Normocephalic Neck: Supple, No JVD, Negative Carotid Bruits Lungs: Clear to auscultation, Diminished Cardiovascular: Regular rate, No murmurs Abdomen: Bowel Sounds Present, Soft, Non Tender, Non-Distended, Obese Extremities: No clubbing, No cyanosis, - - Bilateral lower extremities, chronic lymphedema Skin: No rashes, No breakdown, - - Bilateral lower extremity venous stasis ulcerations Musculoskeletal: No Tenderness to Palpation of Joints or Extremities Neurological: Cranial nerves II-XII grossly intact, Neuro grossly intact Psych/Mental Status: Normal Affect, Appropriate Patient seen and examined prior to discharge. Physical assessment as noted above. Patient is stable for discharge with follow up recommendations as noted above. This patient was seen by SHUN Allen under the supervision of Dr. Kearney. - Physical Exam Vitals/I&O's: Vital Signs Temp Pulse Resp BP Pulse Ox 97.7 F L 68 18 138/53 H 96 01/13/21 08:45 01/13/21 08:45 01/13/21 08:45 01/13/21 08:45 01/13/21 08:45 Oxygen Flow Rate (L/min) 2 Oxygen Delivery Method Nasal Cannula Weight: 324 lb 15.382 oz Body Mass Index (BMI) 46.3 Finger Stick Blood Glucose 131 Intake and Output for Last 24 Hours 01/11/21 01/12/21 01/13/21 23:59 23:59 23:59 Intake Total 1589.29 / 1589.29 1490 / 1490 120 / 120 Balance 1589.29 / 1589.29 1490 / 1490 120 / 120 Laboratory Results 01/12/21 04:42: Iron 30 L, Ferritin 226 01/12/21 11:20: POC Glucose 183 H 01/12/21 17:02: POC Glucose 183 H 01/12/21 21:14: POC Glucose 179 H 01/13/21 06:25: WBC 3.4 L, RBC 2.50 L, Hgb 7.6 L, Hct 25.9 L, MCV 103.6 H, MCH 30.4, MCHC 29.3 L, RDW Std Deviation 68.0 H, RDW Coeff of Gina 18.0 H, Plt Count 96 L, MPV 11.0, Differential Comment SEE COMMENT 01/13/21 06:25: Sodium 140, Potassium 4.1, Chloride 105, Carbon Dioxide 31.0, Anion Gap 4 L, BUN 92 H, Creatinine 2.47 H, Estim Creat Clear Calc 27.91, Est GFR (MDRD) Af Amer 33 L, Est GFR (MDRD) Non-Af 28 L, BUN/Creatinine Ratio 37.2 H , Glucose 120 H, Calcium 8.4 L, Phosphorus 4.1, Total Bilirubin 0.70, AST 13 L, ALT 16, Alkaline Phosphatase 51, Total Protein 5.6 L, Albumin 2.5 L, Globulin 3.1, Albumin/Globulin Ratio 0.8 L 01/13/21 06:36: POC Glucose 118 H Current Medications Acetaminophen (Acetaminophen 325 Mg Tablet) 650 mg PO Q6H PRN PRN PRN Reason: Pain Score 1-10/Temp > 100.7 F Last Admin: 01/12/21 17:08 Dose: 650 mg Documented by: Albuterol Sulfate (Albuterol 2.5 Mg/3 Ml Vial.Neb.) 2.5 mg INHALATION Q2H PRN PRN PRN Reason: Dyspnea, wheezing Albuterol/Ipratropium (Ipratropium/Albuterol Sulfate 3 Ml Ampul.Neb) 3 ml INHALATION Q6HWA.RT [facility] Last Admin: 01/13/21 07:20 Dose: 3 ml Documented by: Allopurinol (Allopurinol 100 Mg Tablet) 100 mg PO DAILYCM [facility] Last Admin: 01/13/21 08:07 Dose: 100 mg Documented by: Aspirin (Aspirin 81 Mg Tab.Chew) 81 mg PO DAILYCM [facility] Last Admin: 01/13/21 08:07 Dose: 81 mg Documented by: Atorvastatin Calcium (Atorvastatin Calcium 80 Mg Tablet) 80 mg PO QHS [facility] Last Admin: 01/12/21 21:15 Dose: 80 mg Documented by: Bumetanide (Bumetanide 0.5 Mg Tablet) 1 mg PO BID [facility] Last Admin: 01/13/21 08:08 Dose: 1 mg Documented by: Carvedilol (Carvedilol 25 Mg Tablet) 50 mg PO BID [facility] Last Admin: 01/13/21 08:07 Dose: 50 mg Documented by: Clonidine (Clonidine Hcl 0.1 Mg Tablet) 0.3 mg PO BID [facility] Last Admin: 01/13/21 08:07 Dose: 0.3 mg Documented by: Heparin Sodium (Porcine) (Heparin Injection (Vial) 5,000 Unit/Ml Vial) 5,000 unit SC Q12 [facility] Last Admin: 01/13/21 08:08 Dose: 5,000 unit Documented by: Hydralazine HCl (Hydralazine 25 Mg Tablet) 25 mg PO TID [facility] Last Admin: 01/13/21 05:49 Dose: 25 mg Documented by: Hydralazine HCl (Hydralazine 20 Mg/Ml Vial) 10 mg IV Q4H PRN PRN PRN Reason: SBP > 160 Insulin Glargine (Insulin Glargine 100 Units/Ml Pen) 15 units SC DINNER@1700 [facility] Last Admin: 01/12/21 17:09 Dose: 15 u Documented by: Insulin Glargine (Insulin Glargine 100 Units/Ml Pen) 30 units SC BREAKFAST [facility] Last Admin: 01/13/21 08:08 Dose: 30 u Documented by: Insulin Human Lispro (Insulin Lispro 100 Unit/Ml Insuln.Pen) 0 unit SC ACHS [facility]; Protocol Last Admin: 01/13/21 06:46 Dose: Not Given Documented by: Isosorbide Mononitrate (Isosorbide Mononitrate 120 Mg Tablet) 120 mg PO DAILY [facility] Last Admin: 01/13/21 08:07 Dose: 120 mg Documented by: Ondansetron HCl (Ondansetron 4 Mg/2 Ml Vial) 4 mg IV Q8H PRN PRN PRN Reason: NAUSEA/VOMITING Oxycodone HCl (Oxycodone 5 Mg Tablet) 5 mg PO Q4H PRN PRN PRN Reason: Pain Score 4-10 Sodium Chloride (0.9% Saline Lock 10 Ml Syringe) 10 - 40 ml IV UD PRN PRN Reason: SALINE FLUSH Last Admin: 01/12/21 17:08 Dose: 20 ml Documented by: Tamsulosin HCl (Tamsulosin Hcl 0.4 Mg Capsule) 0.4 mg PO DAILY@1730 [facility] Last Admin: 01/12/21 17:08 Dose: 0.4 mg Documented by: Home Medications: Medications to take at Discharge Aspirin [Aspirin, Baby] 81 mg PO DAILY 03/03/15 Fluticasone 0.05% [Flonase Nasal [place]] 2 spray NASAL DAILY 12/31/15 Allopurinol [Zyloprim] 100 mg PO DAILYCM 03/03/19 Carvedilol [Coreg] 50 mg PO BID 03/03/19 Cholecalciferol (VIT D3) [Vitamin D3] 1,000 unit PO SUWESA 03/03/19 Isosorbide Mononitrate [Isosorbide Mononitrate ER] 120 mg PO DAILY 03/03/19 Umeclidinium Brm/Vilanterol Tr [Anoro Ellipta 62.5-25 Mcg INH] 1 puff IH DAILY 03/03/19 hydrALAZINE [Apresoline] 25 mg PO TID 03/03/19 atorvastatin 80 mg tablet 80 mg PO QHS #90 tab 04/04/19 Albuterol Inhaler [Ventolin Hfa] 2 puff INHALATION Q6H PRN PRN 04/27/19 Nitroglycerin (INPATIENT USE) [Nitrostat] 0.4 mg SUBLINGUAL Q5M PRN 09/19/20 Acetaminophen [Tylenol] 1,000 mg PO Q6H PRN PRN tab 12/10/20 Ondansetron [Zofran] 8 mg PO Q8H PRN PRN #90 tab 12/10/20 Insulin Glargine [Lantus SoloStar Pen] 30 units SC BREAKFAST 12/25/20 Menthol/Lanolin/Calamine/Znox [Calmoseptine Ointment] 1 applic TOPICAL BID 12/25/20 Nystatin Powder [Mycostatin Powder] 1 applic TOPICAL TID 12/25/20 Senna/Docusate Sodium [Senokot-S] 2 tablet PO BID 12/25/20 Tamsulosin HCl [Flomax] 0.4 mg PO DAILY@1730 12/25/20 Clonidine HCl 0.3 mg PO BID 01/09/21 Insulin Glargine [Lantus SoloStar Pen] 15 units SC DINNER@1700 01/09/21 Insulin Lispro [Humalog KwikPen] See Protocol SC TID 01/09/21 Bumetanide [Bumex] 1 mg PO BID tablet 01/13/21 Primary Care Physician: Jean-Claude Garcia MD [Primary Care Provider] - Please follow up with your Primary Care Physician in: 1 Week Please Follow Up With: Vickie Gutierrez DO When: As scheduled 01/28/21 Please Follow Up With: Josué Caal NP, KNOT [employer]ER-C When: as scheduled 01/14/21 [facility] Minutes spent on discharge:: 35 Patient Condition:: Stable Medical Necessity - Tobacco Use Smoking Status: Former smoker Meaningful Use Info Meaningful Use Diagnoses (Choose all that apply): None applicable <Melody Kearney - Last Filed: 01/14/21 08:18> Discharge Date and Diagnosis - Secondary Discharge Diagnosis Chronic Problems: Chronic Problems (Last Reviewed 10/09/20 @ 15:[address] Destin Cain DO) (HFpEF) heart failure with preserved ejection fraction (Chronic) Chronic diastolic (congestive) heart failure (Chronic) Chronic kidney disease (CKD) (Chronic) Stage IV Debility (Chronic) Body mass index 45.0-49.9, adult (Chronic) Chronic obstructive pulmonary disease (Chronic) Allergic rhinitis (Chronic) Gout (Chronic) Vitamin D deficiency (Chronic) Tinea corporis (Chronic) Pulmonary hypertension (Chronic) Venous stasis ulcer of left lower extremity (Chronic) Chronic respiratory failure with hypoxia (Chronic) Morbid obesity (Chronic) Anemia (Chronic) Thrombocytopenia (Chronic) Diabetes mellitus, type II (Chronic) IMAN (obstructive sleep apnea) (Chronic) Secondary pulmonary arterial hypertension (Chronic) Right bundle branch block (RBBB) (Chronic) Essential (primary) hypertension (Chronic) Hyperlipidemia (Chronic) Lymphedema of both lower extremities (Chronic) Hospital Course and Treatment Consultations 01/09/21 18:17 Consult: Onc/Wound/relish maker Routine Comment: Summary of Care Provided: This patient was seen in conjunction with Meghann Borges NP. I have independently interviewed and examined the patient and reviewed pertinent historical, laboratory, and other data. Please refer to her note for patient's presentation, findings, and recommendations. 70 y/o male with poor comorbidities who was admitted with worsening dyspnea, fatigue, lower extremity edema. Patient had a fistula placed in May 2020 but needs to be revised by vascular. Patient's management in this hospital stay was done for anasarca. He was managed on Lasix drip. He was seen by nephrology and followed. There was no acute need for dialysis during this hospital stay. He was transitioned to Bumex oral at discharge. He will follow up with nephrology in the outpatient. On the day of discharge, patient was seen and examined. Denied any new complains. Physical Exam: Gen: Morbidly obese, not pale, not jaundiced, alert oriented x3 CVS:HS I +II, regular, 3/6 holosystolic murmurs, left forearm AVF thrill RESP: Diminished at lung bases GI: BS present and normal, nontender, no palpable organs EXT:Bilateral leg edema, bilateral YESSY-wraps, chronic venous stasis dermatitis - Physical Exam Vitals/I&O's: Vital Signs Temp Pulse Resp BP Pulse Ox 97.7 F L 70 18 169/54 H 96 01/13/21 13:55 01/13/21 13:55 01/13/21 13:55 01/13/21 13:55 01/13/21 13:55 Oxygen Flow Rate (L/min) 2 Oxygen Delivery Method Nasal Cannula Weight: 147.4 kg Body Mass Index (BMI) 46.3 Finger Stick Blood Glucose 131 Intake and Output for Last 24 Hours 01/12/21 01/13/21 01/14/21 23:59 23:59 23:59 Intake Total 1490 / 1490 360 / 360 Balance 1490 / 1490 360 / 360 Microbiology Past 72 Hours 01/13/21 10:10 Mucosa - Nose SARS-CoV-2 Antigen (Rapid) - Final Laboratory Results 01/13/21 11:36: POC Glucose 195 H Inpatient E&M: 10899 Disch Hosp
--- NOTE | 2021-01-13 10:47 | CASEMGMT ---
Social Work Patient cleared for discharge today per doctor. Met with patient in room. Patient agreeable to discharge and returning to [facility] today. Patient declines for this manager social responsibility to contact patient family/support in regards to discharge plan/date as patient reports I already spoke to my sister. Telephone call to [facility]. [facility] confirms to be able to accept patient back today. Pending COVID-19 test results. Will continue to follow. PLAN: [facility] [place]. Christine LOVELL, RAINE
--- NOTE | 2021-01-13 11:03 | CASEMGMT ---
Social Work COVID-19 test results back and negative. [facility] Transportation set up for 2:30pm. Transportation form completed and placed on patient chart. Patient, medical team and [facility] updated. Discharge orders, updated clinicals and signed medication list faxed to [facility]. PLAN: [facility]charge to [facility], intermediate/long-term level of care. Christine LOVELL, FREEDOMS
[2021-01-13] MEDS: Insulin Lispro 100 UNIT/ML INSULN.PEN SC (11:37)
[2021-01-13 11:45] LABS: Bedside Glucose 195 mg/dL (70-110)
--- NOTE | 2021-01-13 12:19 | PHA.DC.MR ---
Pharmacy Service has performed discharge medication reconciliation for this patient. The patient's discharge medication list was reviewed for discrepancies and discrepancies were resolved. Home Medications Aspirin [Aspirin, Baby] 81 mg PO DAILY 03/03/15 Fluticasone 0.05% [Flonase Nasal [place]] 2 spray NASAL DAILY 12/31/15 Allopurinol [Zyloprim] 100 mg PO DAILYCM 03/03/19 Carvedilol [Coreg] 50 mg PO BID 03/03/19 Cholecalciferol (VIT D3) [Vitamin D3] 1,000 unit PO SUWESA 03/03/19 Isosorbide Mononitrate [Isosorbide Mononitrate ER] 120 mg PO DAILY 03/03/19 Umeclidinium Brm/Vilanterol Tr [Anoro Ellipta 62.5-25 Mcg INH] 1 puff IH DAILY 03/03/19 hydrALAZINE [Apresoline] 25 mg PO TID 03/03/19 atorvastatin 80 mg tablet 80 mg PO QHS #90 tab 04/04/19 Albuterol Inhaler [Ventolin Hfa] 2 puff INHALATION Q6H PRN PRN 04/27/19 Nitroglycerin (INPATIENT USE) [Nitrostat] 0.4 mg SUBLINGUAL Q5M PRN 09/19/20 Acetaminophen [Tylenol] 1,000 mg PO Q6H PRN PRN tab 12/10/20 Ondansetron [Zofran] 8 mg PO Q8H PRN PRN #90 tab 12/10/20 Insulin Glargine [Lantus SoloStar Pen] 30 units SC BREAKFAST 12/25/20 Menthol/Lanolin/Calamine/Znox [Calmoseptine Ointment] 1 applic TOPICAL BID 12/25/20 Nystatin Powder [Mycostatin Powder] 1 applic TOPICAL TID 12/25/20 Senna/Docusate Sodium [Senokot-S] 2 tablet PO BID 12/25/20 Tamsulosin HCl [Flomax] 0.4 mg PO DAILY@1730 12/25/20 Clonidine HCl 0.3 mg PO BID 01/09/21 Insulin Glargine [Lantus SoloStar Pen] 15 units SC DINNER@1700 01/09/21 Insulin Lispro [Humalog KwikPen] See Protocol SC TID 01/09/21 Bumetanide [Bumex] 1 mg PO BID tablet 01/13/21
--- NOTE | 2021-01-13 14:11 | NURSING ---
report called to Karl Sandoval at [facility] for discharge.
== END 2021-01-13 14:56 | disposition skilled nursing facility (03) | DRG 291 ==
LOC: ED 17:07 → PCU 17:51
PROVIDERS: Internal Medicine; Internal Medicine Nephrology; Nurse Practitioner Family; Admitting Provider Family Medicine; Emergency Provider Emergency Medicine; PCP Family Medicine; Visit Provider Internal Medicine
DX: I13.0 Hypertensive heart and chronic kidney disease with heart failure and stage 1 through stage 4 chronic kidney disease, or unspecified chronic kidney disease (principal); I50.33 Acute on chronic diastolic (congestive) heart failure; J96.11 Chronic respiratory failure with hypoxia; Z68.42 Body mass index [BMI] 45.0-49.9, adult; L03.116 Cellulitis of left lower limb; L03.115 Cellulitis of right lower limb; N18.4 Chronic kidney disease, stage 4 (severe); D69.6 Thrombocytopenia, unspecified; E11.22 Type 2 diabetes mellitus with diabetic chronic kidney disease; E78.5 Hyperlipidemia, unspecified; D50.9 Iron deficiency anemia, unspecified; D63.1 Anemia in chronic kidney disease; M10.9 Gout, unspecified; G47.33 Obstructive sleep apnea (adult) (pediatric); N40.0 Benign prostatic hyperplasia without lower urinary tract symptoms; E66.01 Morbid (severe) obesity due to excess calories; I87.2 Venous insufficiency (chronic) (peripheral); I89.0 Lymphedema, not elsewhere classified; Z66 Do not resuscitate; Z87.891 Personal history of nicotine dependence; Z79.4 Long term (current) use of insulin; Z79.899 Other long term (current) drug therapy; J44.9 Chronic obstructive pulmonary disease, unspecified; Z99.81 Dependence on supplemental oxygen; R53.81 Other malaise; I27.21 Secondary pulmonary arterial hypertension
CPT/HCPCS: 36415; 80048; 80053; 80076; 82728; 82962; 83540; 83735; 84100; 84443; 85025; 85027; 85610; 85730; 87426; 94003; 94640; 94660; 97110; 97162; 97165; 97530; 97535; 97802; 99285; A4216; J1940

== ENCOUNTER 2021-02-08 20:50 | Inpatient (IN) | payer MEDICARE, OTHER, SELFPAY ==
[2021-01-14 11:32] VITALS: BMI 46.5
[2021-02-08 20:50] VITALS: BP 155/60; PULSE 64; RESP 20; TEMP 36.9; O2SAT 98; BMI 48.4
--- NOTE | 2021-02-08 21:01 | EKG12_ITS ---
Test Reason : SOB Blood Pressure : / mmHG Vent. Rate : 064 BPM Atrial Rate : 064 BPM P-R Int : 000 ms QRS Dur : 132 ms QT Int : 488 ms P-R-T Axes : 000 -63 020 degrees QTc Int : 503 ms Normal sinus rhythm Left axis deviation Right bundle branch block Abnormal ECG Confirmed by SHELTON GARCIA, SUBHA ([id number]), multimedia editor JOSEPH ZELAYA ([id number]) on 02/09/2021 1:05:27 PM Referred By: CL Confirmed By:USBHA PEOPLES MD
--- NOTE | 2021-02-08 21:15 | ED.VIS.DYS ---
HPI History of Present Illness Chief Complaint: Shortness of Breath Narrative Narrative: 70-year-old male presents with concern for edema and shortness of breath. States is been progressing over the past 2 to 3 days. States he is not having normal urine output. Is currently living in a long-term facility after being discharged from the hospital 2 weeks ago for similar issue. Denies any fever, chills, cough, chest pain, nausea, vomiting, abdominal pain. Patient is currently on diuretics. States he has been taking them as prescribed. [facility] Medical History (Updated 02/08/21 @ 22:[address] Ramses Hannon, DO) DEVAN (acute kidney injury) BMI 33.0-33.9,adult CKD (chronic kidney disease), stage III Essential (primary) hypertension Gastrointestinal bleed Hyperlipidemia Lymphedema of both lower extremities Non-pressure ulcer of right lower extremity with fat layer exposed Right bundle branch block (RBBB) Secondary pulmonary arterial hypertension Syncope and collapse Traumatic open wound of right lower leg Traumatic open wound of right lower leg with delayed healing Type 2 diabetes mellitus Wound of right leg Home Medications aspirin 81 mg PO DAILY 03/03/15 [History Last Taken 01/09/21] fluticasone propionate 2 spray NASAL DAILY 12/31/15 [History Last Taken 01/09/21] allopurinol 100 mg PO DAILYCM 03/03/19 [History Last Taken 01/09/21] carvedilol 50 mg PO BID 03/03/19 [History Last Taken 01/09/21] cholecalciferol (vitamin D3) 1,000 unit PO SUWESA 03/03/19 [History Last Taken 01/07/21] hydralazine 25 mg PO TID 03/03/19 [History Last Taken 01/09/21] isosorbide mononitrate 120 mg PO DAILY 03/03/19 [History Last Taken 01/09/21] umeclidinium-vilanterol 1 puff IH DAILY 03/03/19 [History Last Taken 01/05/21] atorvastatin 80 mg tablet 80 mg PO QHS #90 tablet 04/04/19 [History Last Taken 01/08/21] albuterol sulfate 2 puff INHALATION Q6H PRN PRN 04/27/19 [History Last Taken 01/05/21] nitroglycerin 0.4 mg SL Q5M PRN 09/19/20 [History Last Taken Unknown] acetaminophen 1,000 mg PO Q6H PRN PRN tablet 12/10/20 [Rx Last Taken 01/08/21] ondansetron HCl 8 mg PO Q8H PRN PRN #90 tablet 12/10/20 [Rx Last Taken 01/06/21] insulin glargine 30 units SC TIDCM 12/25/20 [History Last Taken 01/09/21] menthol-zinc oxide 1 applic TOPICAL BID 12/25/20 [History Last Taken 01/09/21] sennosides-docusate sodium 2 tablet PO BID 12/25/20 [History Last Taken 01/09/21] tamsulosin 0.4 mg PO DAILY@1730 12/25/20 [History Last Taken 01/08/21] clonidine HCl 0.3 mg PO BID 01/09/21 [History Last Taken 01/09/21] insulin glargine 10 units SC QHS 01/09/21 [History Last Taken 01/08/21] insulin lispro See Protocol SC TID 01/09/21 [History Last Taken 01/09/21] bisacodyl 10 mg rectal suppository 10 mg RC DAILY PRN 01/14/21 [History Last Taken Unknown] bumetanide 1 mg tablet 2 mg PO BID 01/14/21 [History Last Taken Unknown] magnesium hydroxide 400 mg/5 mL oral suspension 30 ml PO DAILY PRN ml 01/14/21 [History Last Taken Unknown] mineral oil 118 ml RC DAILY PRN 01/14/21 [History Last Taken Unknown] polyethylene glycol 3350 17 gram/dose oral powder 17 gm PO DAILY PRN 01/14/21 [History Last Taken Unknown] furosemide 80 mg IM BID 02/08/21 [History Last Taken Unknown] metoclopramide HCl [Reglan] 5 mg PO TIDCM 02/08/21 [History Last Taken Unknown] Allergy/AdvReac Type Severity Reaction Status Date / Time ARB-Angiotensin Receptor Allergy WORSENS Verified 02/08/21 20:55 Antagonist RENAL FUNCTION amoxicillin AdvReac Upset Verified 02/08/21 20:55 Stomach Family History Other Diabetes Heart disease Hypertension Surgical History A-V fistula (05/09/20) History of cataract surgery Social History Smoking Status: Former smoker pack-years: 30 how long ago did patient quit smokin years ago alcohol intake: current details: Occasionally substance use type: marijuana caffeine: Yes Type: coffee and tea ROS ROS ED Constitutional Constitutional ED: Denies chills, fever(s) or sweats Eyes Eyes: Denies blurry vision, change in vision or diplopia ENT ENT ED: Denies rhinorrhea or sore throat Cardiovascular Cardiovascular: Denies chest pain, orthopnea, palpitations or racing heartbeat Respiratory/Chest Respiratory/Chest: Reports dyspnea; Denies cough, dyspnea on exertion, orthopnea or sputum Gastrointestinal Gastrointestinal: Denies abdominal pain, constipation, diarrhea, melena, nausea or vomiting Genitourinary Genitourinary ED: Denies dysuria, hematuria or urinary frequency Musculoskeletal Musculoskeletal: Reports other Details: Edema ; Denies arthralgias, myalgias or neck pain Integumentary Denies rash Neurologic Neurologic: Denies headache(s), paresthesias or weakness Psychiatric Psychiatric: Denies anxiety or depression Hematologic/Lymphatic Hematologic/Lymphatic: Denies easy bleeding or easy bruising Allergic/Immunologic Allergic/Immunologic ED: Denies mouth swelling or tongue swelling EXAM Physical Exam Const Vital Signs: 02/08/21 20:50 02/08/21 21:07 02/08/21 22:25 Temperature 98.4 F 98.0 F Temperature Source Oral Oral Pulse Rate 64 65 Respiratory Rate 20 H 22 H Respiratory Effort Normal Blood Pressure 155/60 H 138/62 H Blood Pressure Mean 91 87 Pulse Ox 98 98 Oxygen Delivery Method Nasal Cannula Room Air Oxygen Flow Rate (L/min) 2.5 Positive well nourished and well developed General Appearance ED: well developed HEENT Reports TM's clear and moist mucous membranes normocephalic and atraumatic Tympanic Membrane ED: Yes TM's clear Eyes PERRL and EOMs intact bilaterally Neck no lymphadenopathy, supple and no JVD Chest Wall inspection of chest normal Resp normal respiratory effort and clear to auscultation bilaterally Cardio regular rate, S1 normal heart sound, S2 normal heart sound and no murmurs Peripheral Pulses: pulses 2+ throughout GI soft to palpation, non-tender and non-distended Back/Spine no CVA tenderness and no thoracic nor lumbar tenderness Extremity normal to inspection Extremity Narrative: Bilateral 2+ pitting edema. Anasarca. General Extremety ED: Yes edema; Negative for tenderness General Extremity: edema Neuro oriented x3, CN's II-XII intact bilaterally and no sensory deficits noted Sensorium / Orientation: alert Motor Exam: strength 5/5 throughout Psych mental status grossly normal Skin no rashes or lesions noted MDM MDM MDM Narrative Medical decision making narrative: Patient appears well nontoxic. On his baseline oxygen. Elevated BNP with chronic kidney disease. Patient does have anasarca with bilateral crackles. Troponin negative. Patient given Lasix. Patient will be admitted for further treatment and evaluation as well as diuresis. Stable at time of admission. Lab Data Attestation: I reviewed the patient's lab results. Labs: Laboratory Results - last 24 hr 02/08/21 02/08/21 02/08/21 21:25 21:25 21:25 WBC 5.0 RBC 3.12 L Hgb 9.3 L Hct 32.3 L MCV 103.5 H MCH 29.8 MCHC 28.8 L RDW Std Deviation 63.4 H RDW Coeff of Gina 16.7 H Plt Count 115 L MPV 9.8 Immature Gran % (Auto) 0.200 Neut % (Auto) 82.4 H Lymph % (Auto) 6.0 L [place] % (Auto) 7.0 Eos % (Auto) 4.0 Baso % (Auto) 0.4 Absolute Neuts (auto) 4.1 Absolute Lymphs (auto) 0.30 L Nucleated RBC % 0 Sodium 139 Potassium 4.1 Chloride 101 Carbon Dioxide 32.0 Anion Gap 6 BUN 84 H Creatinine 2.50 H Estim Creat Clear Calc 27.58 Est GFR (MDRD) Af Amer 33 L Est GFR (MDRD) Non-Af 27 L BUN/Creatinine Ratio 33.6 H Glucose 178 H Calcium 8.5 Troponin I < 0.015 B-Natriuretic Peptide 442.6 H Radiography Chest X-Ray - ED: 1 View, Read by ED Physician, Read by Radiologist, Cardiomegaly and CHF Diagnostic Testing: Radiology Impression Chest X-Ray 02/08/21 21:32 IMPRESSION: 1. Moderate pulmonary venous congestion is favored over pneumonia. 2. Small pleural effusion. Electronically Signed: Soni Ferrell MD at 22:00 EDT Tel , Service support , Rhythm Strip Rhythm Strip: Sinus Rhythm Rate: 64 Ectopy: None EKG Initial EKG: Attestation: I personally reviewed and interpreted this EKG as follows: Interpretation: Sinus Rhythm and No Acute Injury Pattern Comments: Normal sinus rhythm with a rate of 64 bpm. Wide QRS at 132 bpm. Right bundle branch block. Prior: Unchanged Discharge Plan Triage Chief Complaint: Shortness of Breath ED Provider: Ramses Hannon Dx/Rx/DC Orders Clinical Impression: Acute exacerbation of CHF (congestive heart failure), Acute dyspnea, Anasarca Prescriptions: No Action atorvastatin 80 mg tablet 80 mg PO QHS Qty: 90 RF: 0 bumetanide 1 mg tablet 2 mg PO BID RF: 0 bisacodyl 10 mg suppository 10 mg RC DAILY PRN (Reason: Constipation) RF: 0 mineral oil [Fleet Mineral Oil] Enema 118 ml RC DAILY PRN (Reason: Constipation) RF: 0 magnesium hydroxide 400 mg/5 mL suspension 30 ml PO DAILY PRN (Reason: Constipation) RF: 0 polyethylene glycol 3350 17 gram/dose powder 17 gm PO DAILY PRN (Reason: Constipation) RF: 0 aspirin 81 MG tablet,chewable 81 mg PO DAILY RF: 0 fluticasone propionate 1 SPRAY spray,suspension 2 spray NASAL DAILY RF: 0 carvedilol 25 MG tablet 50 mg PO BID RF: 0 hydralazine 25 MG tablet 25 mg PO TID RF: 0 allopurinol 100 MG tablet 100 mg PO DAILYCM RF: 0 isosorbide mononitrate 120 MG tablet extended release 24 hr 120 mg PO DAILY RF: 0 cholecalciferol (vitamin D3) 1,000 UNIT tablet 1,000 unit PO SUWESA RF: 0 umeclidinium-vilanterol 1 EACH blister with device 1 puff IH DAILY RF: 0 albuterol sulfate 1 INHALER inhaler 2 puff INHALATION Q6H PRN PRN (Reason: Sob &/Or Wheezing) RF: 0 nitroglycerin 0.4 MG tablet, sublingual 0.4 mg SL Q5M PRN (Reason: Chest Pain) RF: 0 ondansetron HCl 8 MG tablet 8 mg PO Q8H PRN PRN (Reason: NAUSEA) Qty: 90 RF: 0 acetaminophen 500 MG tablet 1,000 mg PO Q6H PRN PRN (Reason: Pain Score 1-10) RF: 0 sennosides-docusate sodium 1 TABLET tablet 2 tablet PO BID RF: 0 tamsulosin 0.4 MG capsule 0.4 mg PO DAILY@1730 RF: 0 insulin glargine 100 UNITS/ML insulin pen 30 units SC TIDCM RF: 0 menthol-zinc oxide 1 APPLIC ointment 1 applic TOPICAL BID RF: 0 clonidine HCl 0.3 MG tablet 0.3 mg PO BID RF: 0 insulin lispro 100 UNIT/ML insulin pen See Protocol unit SC TID RF: 0 insulin glargine 100 UNITS/ML insulin pen 10 units SC QHS RF: 0 furosemide 10 mg/mL Solution 80 mg IM BID RF: 0 metoclopramide HCl [Reglan] 5 mg Tablet 5 mg PO TIDCM RF: 0 Primary Care Provider: Jean-Claude Garcia Referrals: Jean-Claude Garcia MD [Primary Care Provider] - Disposition Disposition: Acute Care [facility]
--- NOTE | 2021-02-08 21:32 | RAD_ITS ---
STUDY: X-RAY CHEST REASON FOR EXAM: Male, 70 years old. dyspnea TECHNIQUE: Single AP portable view of the chest. COMPARISON: 12/25/2020. FINDINGS: Small right pleural effusion. Perihilar opacities with mild pulmonary venous congestion. There is mild cardiac enlargement. Normal mediastinum and gregg. Normal visualized pulmonary arteries. Atherosclerotic calcification of the aorta. Soft tissues and bony structures are unremarkable. There is no demonstrated abnormality of the visualized soft tissue structures of the upper abdomen. RAD/Chest 1 View (Portable) IMPRESSION: 1. Moderate pulmonary venous congestion is favored over pneumonia. 2. Small pleural effusion. Electronically Signed: Soni Ferrell MD at 22:00 EDT Tel , Service support ,
[2021-02-08 21:37] LABS: Absolute Neutrophil Count 4.1 X10^3/uL (2.0-7.7); Basophil# 0.02 X10^3/uL; Basophil% 0.4 % (0-1); Hematocrit 32.3 % (40-54); Hemoglobin 9.3 g/dL (13.0-16.5); Mean Corp Hgb Conc 28.8 g/dL (32-36); Mean Corpuscular Hgb 29.8 pg (27.0-32.0); Mean Corpuscular Volume 103.5 fL (80-94); Mean Platelet Vol. 9.8 fl (6.2-12.0); Monocyte# 0.35 X10^3/uL; NRBC Flagged by Analyzer 0 % (0-5); Neutrophil # 4.13 X10^3/uL (2.7-7.7); Neutrophil % 82.4 % (47-70); POSITIVE DIFFERENTIAL YES; Platelet Count 115 K/mm3 (150-450); RBC Distribution Width CV 16.7 % (11.6-14.6); RBC Distribution Width SD 63.4 fl (35.1-43.9); Red Blood Count 3.12 M/mm3 (4.6-6.2)
[2021-02-08 21:48] LABS: Differential Indicated SCAN CRITERIA MET
[2021-02-08 21:56] LABS: Anion Gap 6 (5-15); BUN 84 mg/dL (7-18); BUN/Creat Ratio 33.6 RATIO (10-20); Calcium,Total 8.5 mg/dL (8.5-10.1); Chloride 101 mmol/L (98-107); EST Glomerular Filtration Rate 27 mL/min (>60); Est Glom Filt Rate - Afr Amer 33 mL/min (>60); Estimated Creatinine Clearance 27.58 ml/min; Glucose 178 mg/dL (74-106); Potassium 4.1 mmol/L (3.5-5.1); Sodium Level 139 mmol/L (136-145)
[2021-02-08 22:04] LABS: BNP,B-Type NATRIURETIC PEPTIDE 442.6 pg/mL (0-100)
[2021-02-08] MEDS: Furosemide 40 MG/4 ML Vial IV (22:23)
[2021-02-08 22:25] VITALS: BP 138/62; PULSE 65; RESP 22; TEMP 36.7; O2SAT 98
[2021-02-08 22:39] LABS: Differential Comment SCANNED
[2021-02-08 22:43] VITALS: BP 150/81; PULSE 66; RESP 18; TEMP 36.7; O2SAT 97
--- NOTE | 2021-02-08 23:06 | PCM.HP.STD ---
HPI - General General Date of Admission: 02/08/21 HPI Narrative LAURA MURILLO, is a 70 M who presents with complaints of swelling to all extremities. Patient reports that he was not swollen when he woke up this morning but the swelling has progressively gotten worse in his arms and legs throughout the day. Patient reports that he has been taking his medications as prescribed at the senior living and follows his 1500 mL fluid restriction. Patient denies shortness of breath however he does seem labored when speaking. Patient denies fever, chills, cough, nausea, vomiting. Patient states that he does not feel ill. [facility] Medical History (Updated 02/08/21 @ 23:19 by Isis Bauer NP-C) DEVAN (acute kidney injury) BMI 33.0-33.9,adult CKD (chronic kidney disease), stage III Essential (primary) hypertension Gastrointestinal bleed Hyperlipidemia Lymphedema of both lower extremities Non-pressure ulcer of right lower extremity with fat layer exposed Right bundle branch block (RBBB) Secondary pulmonary arterial hypertension Syncope and collapse Traumatic open wound of right lower leg Traumatic open wound of right lower leg with delayed healing Type 2 diabetes mellitus Wound of right leg Home Medications aspirin 81 mg PO DAILY 03/03/15 [History Last Taken 01/09/21] fluticasone propionate 2 spray NASAL DAILY 12/31/15 [History Last Taken 01/09/21] allopurinol 100 mg PO DAILYCM 03/03/19 [History Last Taken 01/09/21] carvedilol 50 mg PO BID 03/03/19 [History Last Taken 01/09/21] cholecalciferol (vitamin D3) 1,000 unit PO SUWESA 03/03/19 [History Last Taken 01/07/21] hydralazine 25 mg PO TID 03/03/19 [History Last Taken 01/09/21] isosorbide mononitrate 120 mg PO DAILY 03/03/19 [History Last Taken 01/09/21] umeclidinium-vilanterol 1 puff IH DAILY 03/03/19 [History Last Taken 01/05/21] atorvastatin 80 mg tablet 80 mg PO QHS #90 tablet 04/04/19 [History Last Taken 01/08/21] albuterol sulfate 2 puff INHALATION Q6H PRN PRN 04/27/19 [History Last Taken 01/05/21] nitroglycerin 0.4 mg SL Q5M PRN 09/19/20 [History Last Taken Unknown] acetaminophen 1,000 mg PO Q6H PRN PRN tablet 12/10/20 [Rx Last Taken 01/08/21] ondansetron HCl 8 mg PO Q8H PRN PRN #90 tablet 12/10/20 [Rx Last Taken 01/06/21] insulin glargine 30 units SC TIDCM 12/25/20 [History Last Taken 01/09/21] menthol-zinc oxide 1 applic TOPICAL BID 12/25/20 [History Last Taken 01/09/21] sennosides-docusate sodium 2 tablet PO BID 12/25/20 [History Last Taken 01/09/21] tamsulosin 0.4 mg PO DAILY@1730 12/25/20 [History Last Taken 01/08/21] clonidine HCl 0.3 mg PO BID 01/09/21 [History Last Taken 01/09/21] insulin glargine 10 units SC QHS 01/09/21 [History Last Taken 01/08/21] insulin lispro See Protocol SC TID 01/09/21 [History Last Taken 01/09/21] bisacodyl 10 mg rectal suppository 10 mg RC DAILY PRN 01/14/21 [History Last Taken Unknown] bumetanide 1 mg tablet 2 mg PO BID 01/14/21 [History Last Taken Unknown] magnesium hydroxide 400 mg/5 mL oral suspension 30 ml PO DAILY PRN ml 01/14/21 [History Last Taken Unknown] mineral oil 118 ml RC DAILY PRN 01/14/21 [History Last Taken Unknown] polyethylene glycol 3350 17 gram/dose oral powder 17 gm PO DAILY PRN 01/14/21 [History Last Taken Unknown] furosemide 80 mg IM BID 02/08/21 [History Last Taken Unknown] metoclopramide HCl [Reglan] 5 mg PO TIDCM 02/08/21 [History Last Taken Unknown] Allergy/AdvReac Type Severity Reaction Status Date / Time ARB-Angiotensin Receptor Allergy WORSENS Verified 02/08/21 20:55 Antagonist RENAL FUNCTION amoxicillin AdvReac Upset Verified 02/08/21 20:55 Stomach Family History Other Diabetes Heart disease Hypertension Surgical History A-V fistula (05/09/20) History of cataract surgery Social History Smoking Status: Former smoker pack-years: 30 how long ago did patient quit smokin years ago alcohol intake: current details: Occasionally substance use type: marijuana caffeine: Yes Type: coffee and tea ROS Constitutional Constitutional: Denies anorexia, chills, fatigue or fever(s) Cardiovascular Cardiovascular: Reports edema; Denies chest pain Respiratory/Chest Respiratory/Chest: Denies cough, hemoptysis or wheezing Gastrointestinal Gastrointestinal: Denies abdominal pain, constipation, diarrhea, nausea or vomiting Genitourinary Genitourinary: Denies dysuria or hematuria Musculoskeletal Musculoskeletal: Denies back pain, extremity pain or joint pain Integumentary Integumentary: Reports wounds; Denies dry skin, jaundice or lesions Neurologic Neurologic: Denies abnormal gait, abnormal speech or confusion Psychiatric Psychiatric: Denies anxiety or depression Endocrine Endocrinology: Denies change in body appearance Hematologic/Lymphatic Hematologic/Lymphatic: Denies easy bleeding or easy bruising Vital Signs Vital Signs Vital Signs: 02/08/21 20:50 02/08/21 21:07 02/08/21 22:25 Temperature 98.4 F 98.0 F Temperature Source Oral Oral Pulse Rate 64 65 Respiratory Rate 20 H 22 H Respiratory Effort Normal Blood Pressure 155/60 H 138/62 H Blood Pressure Mean 91 87 Pulse Ox 98 98 Oxygen Delivery Method Nasal Cannula Nasal Cannula Oxygen Flow Rate (L/min) 2.5 2 02/08/21 22:43 Temperature 98.0 F Temperature Source Temporal Pulse Rate 66 Respiratory Rate 18 Respiratory Effort Blood Pressure 150/81 H Blood Pressure Mean 104 Pulse Ox 97 Oxygen Delivery Method Nasal Cannula Oxygen Flow Rate (L/min) 2 Physical Exam Const alert and oriented x3 General Appearance: cooperative HEENT normocephalic and head/scalp atraumatic Eyes PERRL Neck supple, no JVD and thyroid normal General: trachea midline Lymph Lymphatic: no lymphadenopathy noted Resp Resp Narrative: Patient appears labored with talking Effort and Inspection: labored Auscultation: rhonchi throughout (Occasional) and diminished lung sounds Cardio regular rate, regular rhythm, S1 normal heart sound and S2 normal heart sound GI normal to inspection, nondistended, normoactive bowel sounds, soft to palpation and non-tender Extremity General Extremity: edema bilateral upper extremity severe and lower extremity Details: severe and no tenderness to palpation of joints or extremities Skin Lesions: no lesions Rashes: no rashes Wounds: wounds noted Neuro CN's II-XII intact bilaterally Psych thought process normal, cooperative and affect normal Appearance: appropriate Lab / Micro Data Result Diagrams: 02/08/21 21:25 02/08/21 21:25 Labs: Laboratory Results - last 24 hr 02/08/21 02/08/21 02/08/21 21:25 21:25 21:25 WBC 5.0 RBC 3.12 L Hgb 9.3 L Hct 32.3 L MCV 103.5 H MCH 29.8 MCHC 28.8 L RDW Std Deviation 63.4 H RDW Coeff of Gina 16.7 H Plt Count 115 L MPV 9.8 Immature Gran % (Auto) 0.200 Neut % (Auto) 82.4 H Lymph % (Auto) 6.0 L [place] % (Auto) 7.0 Eos % (Auto) 4.0 Baso % (Auto) 0.4 Absolute Neuts (auto) 4.1 Absolute Lymphs (auto) 0.30 L Nucleated RBC % 0 Differential Comment SCANNED Sodium 139 Potassium 4.1 Chloride 101 Carbon Dioxide 32.0 Anion Gap 6 BUN 84 H Creatinine 2.50 H Estim Creat Clear Calc 27.58 Est GFR (MDRD) Af Amer 33 L Est GFR (MDRD) Non-Af 27 L BUN/Creatinine Ratio 33.6 H Glucose 178 H Calcium 8.5 Troponin I < 0.015 B-Natriuretic Peptide 442.6 H Rhythm Strip Rhythm Strip: Sinus Rhythm Rate: 64 Ectopy: None Radiology Impression Chest X-Ray 02/08/21 21:32 IMPRESSION: 1. Moderate pulmonary venous congestion is favored over pneumonia. 2. Small pleural effusion. Electronically Signed: Soni Ferrell MD at 22:00 EDT Tel , Service support , Assessment & Plan Assessment/Plan (1) (HFpEF) heart failure with preserved ejection fraction: QUALIFIERS: Heart failure chronicity: acute on chronic Qualified Code(s): I50.33 - Acute on chronic diastolic (congestive) heart failure (2) Pancytopenia: (3) Chronic kidney disease (CKD): QUALIFIERS: Chronic kidney disease stage: stage 4 (severe) Qualified Code(s): N18.4 - Chronic kidney disease, stage 4 (severe) (4) Chronic obstructive pulmonary disease: QUALIFIERS: COPD type: unspecified COPD Qualified Code(s): J44.9 - Chronic obstructive pulmonary disease, unspecified (5) Venous stasis ulcer of left lower extremity: (6) Anasarca: (7) Hyperlipidemia: QUALIFIERS: Hyperlipidemia type: unspecified Qualified Code(s): E78.5 - Hyperlipidemia, unspecified (8) Essential (primary) hypertension: (9) IMAN (obstructive sleep apnea): (10) Diabetes mellitus, type II: QUALIFIERS: Diabetes mellitus intermediate insulin use: with intermediate use (11) Body mass index 45.0-49.9, adult: PLAN: 1. Heart failure with preserved ejection fraction -Admit to PCU for cardiac monitoring -Give Bumex 1 mg IV now and start Bumex 2 mg twice daily tomorrow -1500 mL fluid restriction -Daily weights -Strict I&O -OT and PT to eval and treat -Vital signs per protocol -O2 per protocol -Maintain urinary catheter, inserted in ER -Cardiac diet ordered 2. Pancytopenia -Upon review of labs appears chronic - Trend CBC daily 3. Chronic kidney disease stage IV -Upon review of labs creatinine appears at baseline -Trend CMP daily 4. Chronic obstructive pulmonary disease -Continue home regimen 5. Venous stasis ulcer of left lower extremity -Wound nurse consulted 6. Anasarca -Currently patient reports sudden onset today -Likely due to exacerbation of CHF 7. Hyperlipidemia -Continue atorvastatin 8. Essential hypertension -Continue home regimen of carvedilol, clonidine, Bumex, hydralazine, isosorbide. -Vital signs per protocol 9. Obstructive sleep apnea -BiPAP ordered 10. Diabetes mellitus type 2 -Continue home regimen of insulin glargine -Bedside glucose before meals and at bedtime with sliding scale insulin ordered 11. Body mass index 45.0-49.9 adult -Encourage lifestyle modification DVT Prophylaxis-subcu heparin This patient was seen by Isis Bauer NP-C under the supervision of Dr. Ulrich.
[2021-02-08 23:19] VITALS: BMI 45.8
[2021-02-08 23:32] VITALS: BP 171/79; PULSE 69; RESP 18; TEMP 36.8; O2SAT 97
[2021-02-09] VITALS (23 sets, daily range): BP systolic 118–175; BP diastolic 50–72; PULSE 58–90; RESP 12–22; TEMP 36.5–36.9; O2SAT 93–98
[2021-02-09] MEDS: Bumetanide 1 MG/4 ML Vial IV (01:00)
[2021-02-09] MEDS: 0.9% Saline Lock 10 ML Syringe IV ×3 (01:01→17:47)
[2021-02-09 06:32] LABS: Absolute Lymphocyte Count 0.36 X10^3/uL (0.83-4.51); Absolute Neutrophil Count 4.4 X10^3/uL (2.0-7.7); Basophil# 0.03 X10^3/uL; Basophil% 0.6 % (0-1); Eosinophil# 0.17 X10^3/uL; Eosinophils% 3.2 % (0-5); Hematocrit 30.7 % (40-54); Lymphocyte # 0.36 X10^3/ul (0.83-4.51); Lymphocyte % 6.7 % (19-41); Mean Corp Hgb Conc 29.3 g/dL (32-36); Mean Corpuscular Hgb 30.1 pg (27.0-32.0); Mean Corpuscular Volume 102.7 fL (80-94); Mean Platelet Vol. 10.5 fl (6.2-12.0); Monocyte# 0.45 X10^3/uL; Monocyte% 8.4 % (0-10); NRBC Flagged by Analyzer 0 % (0-5); Neutrophil # 4.35 X10^3/uL (2.7-7.7); Neutrophil % 80.9 % (47-70); POSITIVE DIFFERENTIAL YES; Platelet Count 109 K/mm3 (150-450); RBC Distribution Width CV 16.6 % (11.6-14.6); RBC Distribution Width SD 62.9 fl (35.1-43.9); Red Blood Count 2.99 M/mm3 (4.6-6.2); White Blood Count 5.4 K/mm3 (4.4-11.0)
[2021-02-09 06:33] LABS: Differential Indicated SCAN CRITERIA MET
[2021-02-09 06:51] LABS: ALB/GLOB Ratio 0.6 RATIO (0.9-2.4); AST(SGOT) 9 U/L (15-37); Alanine Aminotransfer ALT/SGPT 9 U/L (16-61); Albumin, Serum 2.3 g/dL (3.2-5.0); Alkaline Phosphatase 63 U/L (45-117); Anion Gap 6 (5-15); BUN 81 mg/dL (7-18); BUN/Creat Ratio 34.9 RATIO (10-20); Calcium,Total 8.5 mg/dL (8.5-10.1); Chloride 105 mmol/L (98-107); Creatinine, Serum 2.32 mg/dL (0.70-1.30); EST Glomerular Filtration Rate 30 mL/min (>60); Est Glom Filt Rate - Afr Amer 36 mL/min (>60); Estimated Creatinine Clearance 29.72 ml/min; Globulin 3.8 g/dL (2.2-4.2); Glucose 146 mg/dL (74-106); Potassium 3.8 mmol/L (3.5-5.1); Protein, Total 6.1 g/dL (6.4-8.2); Sodium Level 136 mmol/L (136-145)
[2021-02-09] MEDS: Ipratropium/Albuterol Sulfate 3 ML AMPUL.NEB INHALATION ×3 (06:52→18:30)
[2021-02-09] MEDS: hydrALAZINE 25 MG Tablet PO (06:59)
[2021-02-09 07:06] LABS: Bedside Glucose 146 mg/dL (70-110)
[2021-02-09] MEDS: Metoclopramide 5 MG TABLET PO ×3 (08:52→16:15)
[2021-02-09] MEDS: Aspirin 81 MG TAB.CHEW PO (08:52)
[2021-02-09] MEDS: Allopurinol 100 MG Tablet PO (08:54)
[2021-02-09] MEDS: cloNIDine HCl 0.1 MG Tablet 0.3 MG PO ×2 (10:00→21:04)
[2021-02-09] MEDS: Carvedilol 25 MG Tablet 50 MG PO ×2 (10:01→21:04)
[2021-02-09] MEDS: Bumetanide 1 MG/4 ML Vial 2 MG IV ×2 (10:01→17:47)
[2021-02-09] MEDS: Heparin Injection (Vial) 5,000 UNIT/ML VIAL 5000 UNIT SC ×2 (10:02→21:03)
[2021-02-09] MEDS: Fluticasone 0.05% 1 SPRAY NASAL.SRY 2 SPRAY NASAL (10:02)
--- NOTE | 2021-02-09 10:26 | NURSING ---
wound photo: left anterior ankle
--- NOTE | 2021-02-09 10:28 | NURSING ---
wound photo: left heel
--- NOTE | 2021-02-09 10:29 | NURSING ---
wound photo: left lateral lower leg
[2021-02-09 10:56] LABS: Bedside Glucose 131 mg/dL (70-110)
[2021-02-09] MEDS: hydrALAZINE 50 MG Tablet PO ×2 (13:56→21:04)
--- NOTE | 2021-02-09 15:15 | CASEMGMT ---
Patient has been at [facility] since December for rehab. SW spoke with him and his plan is to return to [facility]. He declined wanting a list of SNFs as he wants to return to [facility]. Gretel BASILIO
--- NOTE | 2021-02-09 15:38 | CASEMGMT ---
JESSICA CM Readmission Note Previous Admission: 01/09/21-01/13/21 Diagnosis: anasarca, chronic lymphedema with LE venous ulcerations DC Disposition: [facility] with 3L O2 Current Admission Diagnosis: CHF exac Pt presented to [facility] ER with progressive swelling of arms and legs. Pt states he has been taking medications appropriately and adhering to his fluid restriction. Pt currently on O2 at 3L. Pt screened with [facility] Palliative Care Screening Tool, pt met criteria. Referral faxed to Palliative Care. TC to [facility] to confirm receipt. DC PLAN: [facility]
--- NOTE | 2021-02-09 16:02 | PCM.PN.HOSP ---
Subjective Subjective: Patient was seen and examined. He feels improved. Denies progressive SOB. On 2-3L of oxygen at home; currently on 3-4L oxygen. Objective Data Objective Data Vital Signs: Vital Signs Temp Pulse Resp BP Pulse Ox 97.7 F L 58 L 18 118/50 L 98 02/09/21 13:55 02/09/21 15:00 02/09/21 13:55 02/09/21 13:56 02/09/21 14:00 Oxygen Flow Rate (L/min) 3 Oxygen Delivery Method Nasal Cannula Weight: 146.4 kg Body Mass Index (BMI) 45.8 Finger Stick Blood Glucose 131 Intake & Output: Intake and Output for Last 24 Hours 02/07/21 02/08/21 02/09/21 23:59 23:59 23:59 Intake Total 270 / 270 Output Total 1300 / 1300 Balance -1030 / -1030 Lab / Micro Data Result Diagrams: 02/09/21 06:10 02/09/21 06:10 Labs: Laboratory Results - last 24 hr 02/08/21 02/08/21 02/08/21 21:25 21:25 21:25 WBC 5.0 RBC 3.12 L Hgb 9.3 L Hct 32.3 L MCV 103.5 H MCH 29.8 MCHC 28.8 L RDW Std Deviation 63.4 H RDW Coeff of Gina 16.7 H Plt Count 115 L MPV 9.8 Immature Gran % (Auto) 0.200 Neut % (Auto) 82.4 H Lymph % (Auto) 6.0 L [place] % (Auto) 7.0 Eos % (Auto) 4.0 Baso % (Auto) 0.4 Absolute Neuts (auto) 4.1 Absolute Lymphs (auto) 0.30 L Nucleated RBC % 0 Differential Comment SCANNED Sodium 139 Potassium 4.1 Chloride 101 Carbon Dioxide 32.0 Anion Gap 6 BUN 84 H Creatinine 2.50 H Estim Creat Clear Calc 27.58 Est GFR (MDRD) Af Amer 33 L Est GFR (MDRD) Non-Af 27 L BUN/Creatinine Ratio 33.6 H Glucose 178 H Calcium 8.5 Total Bilirubin AST ALT Alkaline Phosphatase Troponin I < 0.015 B-Natriuretic Peptide 442.6 H Total Protein Albumin Globulin Albumin/Globulin Ratio POC Glucose 02/09/21 02/09/21 02/09/21 06:10 06:10 06:55 WBC 5.4 RBC 2.99 L Hgb 9.0 L Hct 30.7 L MCV 102.7 H MCH 30.1 MCHC 29.3 L RDW Std Deviation 62.9 H RDW Coeff of Gina 16.6 H Plt Count 109 L MPV 10.5 Immature Gran % (Auto) 0.200 Neut % (Auto) 80.9 H Lymph % (Auto) 6.7 L [place] % (Auto) 8.4 Eos % (Auto) 3.2 Baso % (Auto) 0.6 Absolute Neuts (auto) 4.4 Absolute Lymphs (auto) 0.36 L Nucleated RBC % 0 Differential Comment Sodium 136 Potassium 3.8 Chloride 105 Carbon Dioxide 25.0 Anion Gap 6 BUN 81 H Creatinine 2.32 H Estim Creat Clear Calc 29.72 Est GFR (MDRD) Af Amer 36 L Est GFR (MDRD) Non-Af 30 L BUN/Creatinine Ratio 34.9 H Glucose 146 H Calcium 8.5 Total Bilirubin 0.80 AST 9 L ALT 9 L Alkaline Phosphatase 63 Troponin I B-Natriuretic Peptide Total Protein 6.1 L Albumin 2.3 L Globulin 3.8 Albumin/Globulin Ratio 0.6 L POC Glucose 146 H 02/09/21 10:47 WBC RBC Hgb Hct MCV MCH MCHC RDW Std Deviation RDW Coeff of Gina Plt Count MPV Immature Gran % (Auto) Neut % (Auto) Lymph % (Auto) [place] % (Auto) Eos % (Auto) Baso % (Auto) Absolute Neuts (auto) Absolute Lymphs (auto) Nucleated RBC % Differential Comment Sodium Potassium Chloride Carbon Dioxide Anion Gap BUN Creatinine Estim Creat Clear Calc Est GFR (MDRD) Af Amer Est GFR (MDRD) Non-Af BUN/Creatinine Ratio Glucose Calcium Total Bilirubin AST ALT Alkaline Phosphatase Troponin I B-Natriuretic Peptide Total Protein Albumin Globulin Albumin/Globulin Ratio POC Glucose 131 H Radiography Diagnostic Testing: Radiology Impression Chest X-Ray 02/08/21 21:32 IMPRESSION: 1. Moderate pulmonary venous congestion is favored over pneumonia. 2. Small pleural effusion. Electronically Signed: Soni Ferrell MD at 22:00 EDT Tel , Service support , Rhythm Strip Rhythm Strip: Sinus Rhythm Rate: 64 Ectopy: None Physical Exam Const General Appearance: cooperative HEENT normocephalic Neck thyroid normal General: trachea midline Lymph Lymphatic: no lymphadenopathy noted Resp Resp Narrative: Patient appears labored with talking Effort and Inspection: labored Auscultation: diminished lung sounds Extremity General Extremity: no tenderness to palpation of joints or extremities Skin Lesions: no lesions Rashes: no rashes Wounds: wounds noted Psych thought process normal and cooperative Appearance: appropriate Assessment & Plan Assessment/Plan (1) (HFpEF) heart failure with preserved ejection fraction: QUALIFIERS: Heart failure chronicity: acute on chronic Qualified Code(s): I50.33 - Acute on chronic diastolic (congestive) heart failure (2) Pancytopenia: (3) Chronic kidney disease (CKD): QUALIFIERS: Chronic kidney disease stage: stage 4 (severe) Qualified Code(s): N18.4 - Chronic kidney disease, stage 4 (severe) (4) Chronic obstructive pulmonary disease: QUALIFIERS: COPD type: unspecified COPD Qualified Code(s): J44.9 - Chronic obstructive pulmonary disease, unspecified (5) Venous stasis ulcer of left lower extremity: (6) Anasarca: (7) Hyperlipidemia: QUALIFIERS: Hyperlipidemia type: unspecified Qualified Code(s): E78.5 - Hyperlipidemia, unspecified (8) Essential (primary) hypertension: (9) IMAN (obstructive sleep apnea): (10) Diabetes mellitus, type II: QUALIFIERS: Diabetes mellitus termite inspector insulin use: with longterm use (11) Body mass index 45.0-49.9, adult: PLAN: 1. Acute on chronic CHF with preserved ejection fraction Continue on IV Bumex, CHF protocol with fluid restriction, daily weights, strict I&O Continue on low salt diet 2. Venous stasis ulcer of left lower extremity Wound nurse consulted Visit Charges Inpatient E&M: 98988 Subs Hosp L2
[2021-02-09] MEDS: Tamsulosin HCl 0.4 MG Capsule PO (16:15)
[2021-02-09 16:51] LABS: Bedside Glucose 105 mg/dL (70-110)
[2021-02-09] MEDS: Atorvastatin Calcium 80 MG Tablet PO (21:04)
--- NOTE | 2021-02-09 21:11 | NURSING ---
patient given a snack at this time
[2021-02-09 21:16] LABS: Bedside Glucose 93 mg/dL (70-110)
[2021-02-10] VITALS (18 sets, daily range): BP systolic 118–148; BP diastolic 47–60; PULSE 54–88; RESP 12–25; TEMP 36.3–36.7; O2SAT 95–98
[2021-02-10] MEDS: hydrALAZINE 50 MG Tablet PO ×3 (06:33→21:01)
[2021-02-10] MEDS: Ipratropium/Albuterol Sulfate 3 ML AMPUL.NEB INHALATION ×2 (07:20→19:10)
[2021-02-10 08:11] LABS: Bedside Glucose 110 mg/dL (70-110)
[2021-02-10 08:11] LABS: Bedside Glucose 59 mg/dL (70-110)
[2021-02-10 08:11] LABS: Bedside Glucose 55 mg/dL (70-110)
[2021-02-10 08:11] LABS: Bedside Glucose 63 mg/dL (70-110)
[2021-02-10] MEDS: Allopurinol 100 MG Tablet PO (08:26)
[2021-02-10] MEDS: Metoclopramide 5 MG TABLET PO ×3 (08:26→16:20)
[2021-02-10] MEDS: Aspirin 81 MG TAB.CHEW PO (08:26)
[2021-02-10 08:35] LABS: ALB/GLOB Ratio 0.8 RATIO (0.9-2.4); AST(SGOT) 6 U/L (15-37); Alanine Aminotransfer ALT/SGPT 11 U/L (16-61); Albumin, Serum 2.7 g/dL (3.2-5.0); Alkaline Phosphatase 64 U/L (45-117); Anion Gap 5 (5-15); BUN 84 mg/dL (7-18); BUN/Creat Ratio 32.3 RATIO (10-20); Calcium,Total 8.7 mg/dL (8.5-10.1); Chloride 104 mmol/L (98-107); EST Glomerular Filtration Rate 26 mL/min (>60); Est Glom Filt Rate - Afr Amer 31 mL/min (>60); Estimated Creatinine Clearance 26.52 ml/min; Globulin 3.5 g/dL (2.2-4.2); Glucose 84 mg/dL (74-106); Potassium 3.8 mmol/L (3.5-5.1); Protein, Total 6.2 g/dL (6.4-8.2); Sodium Level 139 mmol/L (136-145)
[2021-02-10] MEDS: Fluticasone 0.05% 1 SPRAY NASAL.SRY 2 SPRAY NASAL (09:04)
[2021-02-10] MEDS: Heparin Injection (Vial) 5,000 UNIT/ML VIAL 5000 UNIT SC ×2 (09:04→21:01)
[2021-02-10] MEDS: Bumetanide 1 MG/4 ML Vial 2 MG IV ×2 (09:04→17:19)
[2021-02-10] MEDS: 0.9% Saline Lock 10 ML Syringe IV ×2 (09:05→17:19)
[2021-02-10] MEDS: cloNIDine HCl 0.1 MG Tablet 0.3 MG PO ×2 (09:05→21:00)
[2021-02-10] MEDS: Carvedilol 25 MG Tablet 50 MG PO ×2 (09:05→21:01)
[2021-02-10 11:06] LABS: Bedside Glucose 166 mg/dL (70-110)
[2021-02-10] MEDS: Insulin Lispro 100 UNIT/ML INSULN.PEN SC ×3 (11:09→21:02)
--- NOTE | 2021-02-10 15:03 | PCM.PN.HOSP ---
Subjective Subjective Patient was seen and examined. He denied any new complaint. He is on his home 2 to 3 L of oxygen. Denies chest pain. Objective Data Objective Data Vital Signs: Vital Signs Temp Pulse Resp BP Pulse Ox 97.8 F 66 18 130/47 H 98 02/10/21 14:56 02/10/21 14:57 02/10/21 14:56 02/10/21 14:57 02/10/21 14:56 Oxygen Flow Rate (L/min) 2.5 Oxygen Delivery Method Nasal Cannula Weight: 145.7 kg Body Mass Index (BMI) 45.8 Finger Stick Blood Glucose 131 Intake & Output: Intake and Output for Last 24 Hours 02/08/21 02/09/21 02/10/21 23:59 23:59 23:59 Intake Total 410 / 410 415 / 415 Output Total 1450 / 1700 750 / 750 Balance -1040 / -1290 -335 / -335 Lab / Micro Data Result Diagrams: 02/09/21 06:10 02/10/21 08:04 Labs: Laboratory Results - last 24 hr 02/09/21 02/09/21 02/10/21 16:14 21:02 06:32 Sodium Potassium Chloride Carbon Dioxide Anion Gap BUN Creatinine Estim Creat Clear Calc Est GFR (MDRD) Af Amer Est GFR (MDRD) Non-Af BUN/Creatinine Ratio Glucose Calcium Total Bilirubin AST ALT Alkaline Phosphatase Total Protein Albumin Globulin Albumin/Globulin Ratio POC Glucose 105 93 59 L 02/10/21 02/10/21 02/10/21 06:51 07:16 08:04 Sodium 139 Potassium 3.8 Chloride 104 Carbon Dioxide 30.0 Anion Gap 5 BUN 84 H Creatinine 2.60 H Estim Creat Clear Calc 26.52 Est GFR (MDRD) Af Amer 31 L Est GFR (MDRD) Non-Af 26 L BUN/Creatinine Ratio 32.3 H Glucose 84 Calcium 8.7 Total Bilirubin 0.80 AST 6 L ALT 11 L Alkaline Phosphatase 64 Total Protein 6.2 L Albumin 2.7 L Globulin 3.5 Albumin/Globulin Ratio 0.8 L POC Glucose 55 L 63 L 02/10/21 02/10/21 08:04 11:00 Sodium Potassium Chloride Carbon Dioxide Anion Gap BUN Creatinine Estim Creat Clear Calc Est GFR (MDRD) Af Amer Est GFR (MDRD) Non-Af BUN/Creatinine Ratio Glucose Calcium Total Bilirubin AST ALT Alkaline Phosphatase Total Protein Albumin Globulin Albumin/Globulin Ratio POC Glucose 110 166 H Rhythm Strip Rhythm Strip: Sinus Rhythm Rate: 64 Ectopy: None Physical Exam Const alert and oriented x3 General Appearance: cooperative HEENT normocephalic Eyes PERRL Neck thyroid normal General: trachea midline Lymph Lymphatic: no lymphadenopathy noted Resp Resp Narrative: Patient appears labored with talking Effort and Inspection: labored Auscultation: diminished lung sounds Cardio regular rate, regular rhythm, S1 normal heart sound and S2 normal heart sound GI normal to inspection, nondistended, normoactive bowel sounds, soft to palpation and non-tender Extremity General Extremity: no tenderness to palpation of joints or extremities Skin Lesions: no lesions Rashes: no rashes Wounds: wounds noted Neuro CN's II-XII intact bilaterally Psych thought process normal and cooperative Appearance: appropriate Assessment & Plan Assessment/Plan (1) (HFpEF) heart failure with preserved ejection fraction: QUALIFIERS: Heart failure chronicity: acute on chronic Qualified Code(s): I50.33 - Acute on chronic diastolic (congestive) heart failure (2) Pancytopenia: (3) Chronic kidney disease (CKD): QUALIFIERS: Chronic kidney disease stage: stage 4 (severe) Qualified Code(s): N18.4 - Chronic kidney disease, stage 4 (severe) (4) Chronic obstructive pulmonary disease: QUALIFIERS: COPD type: unspecified COPD Qualified Code(s): J44.9 - Chronic obstructive pulmonary disease, unspecified (5) Venous stasis ulcer of left lower extremity: (6) Anasarca: (7) Hyperlipidemia: QUALIFIERS: Hyperlipidemia type: unspecified Qualified Code(s): E78.5 - Hyperlipidemia, unspecified (8) Essential (primary) hypertension: (9) IMAN (obstructive sleep apnea): (10) Diabetes mellitus, type II: QUALIFIERS: Diabetes mellitus exterminator helper termite insulin use: with group home use (11) Body mass index 45.0-49.9, adult: PLAN: 1. Acute on chronic CHF with preserved ejection fraction, continues to diurese Continue on IV Bumex, CHF protocol with fluid restriction, daily weights, strict I&O Continue on low salt diet We will switch to oral Bumex; possible discharge in a.m. 2. Venous stasis ulcer of left lower extremity Wound nurse consulted Visit Charges Inpatient E&M: 31077 Subs Hosp L2
--- NOTE | 2021-02-10 15:50 | CASEMGMT ---
Nurse Practitioner from [facility] spoke with patient and he agreed to services. Roxana from [facility] came in this afternoon and had patient sign papers. SW will notify them when patient is discharged back to [facility]. Plan: d/c back to [facility] when medically ready. Gretel BASILIO
[2021-02-10] MEDS: Tamsulosin HCl 0.4 MG Capsule PO (16:21)
[2021-02-10 16:25] LABS: Bedside Glucose 211 mg/dL (70-110)
[2021-02-10] MEDS: Atorvastatin Calcium 80 MG Tablet PO (21:01)
[2021-02-10 21:30] LABS: Bedside Glucose 177 mg/dL (70-110)
[2021-02-11] VITALS (13 sets, daily range): BP systolic 92–144; BP diastolic 38–55; PULSE 53–71; RESP 12–20; TEMP 35.8–36.6; O2SAT 95–97
[2021-02-11 07:05] LABS: Bedside Glucose 50 mg/dL (70-110)
[2021-02-11 07:20] LABS: Bedside Glucose 110 mg/dL (70-110)
[2021-02-11 07:20] LABS: Bedside Glucose 61 mg/dL (70-110)
[2021-02-11 07:23] LABS: ALB/GLOB Ratio 0.7 RATIO (0.9-2.4); AST(SGOT) 8 U/L (15-37); Alanine Aminotransfer ALT/SGPT 9 U/L (16-61); Albumin, Serum 2.6 g/dL (3.2-5.0); Alkaline Phosphatase 63 U/L (45-117); Anion Gap 5 (5-15); BUN 82 mg/dL (7-18); BUN/Creat Ratio 32.4 RATIO (10-20); Calcium,Total 8.5 mg/dL (8.5-10.1); Chloride 104 mmol/L (98-107); Creatinine, Serum 2.53 mg/dL (0.70-1.30); EST Glomerular Filtration Rate 27 mL/min (>60); Est Glom Filt Rate - Afr Amer 32 mL/min (>60); Estimated Creatinine Clearance 27.25 ml/min; Globulin 3.5 g/dL (2.2-4.2); Glucose 49 mg/dL (74-106); Protein, Total 6.1 g/dL (6.4-8.2); Sodium Level 141 mmol/L (136-145)
[2021-02-11] MEDS: Ipratropium/Albuterol Sulfate 3 ML AMPUL.NEB INHALATION ×2 (07:31→13:21)
[2021-02-11] MEDS: Fluticasone 0.05% 1 SPRAY NASAL.SRY 2 SPRAY NASAL (08:35)
[2021-02-11] MEDS: Allopurinol 100 MG Tablet PO (08:36)
[2021-02-11] MEDS: Metoclopramide 5 MG TABLET PO ×2 (08:36→11:44)
[2021-02-11] MEDS: Aspirin 81 MG TAB.CHEW PO (08:37)
[2021-02-11] MEDS: Bumetanide 1 MG/4 ML Vial 2 MG IV (09:37)
[2021-02-11] MEDS: cloNIDine HCl 0.1 MG Tablet 0.3 MG PO (09:37)
[2021-02-11] MEDS: Heparin Injection (Vial) 5,000 UNIT/ML VIAL 5000 UNIT SC (09:37)
[2021-02-11] MEDS: Carvedilol 25 MG Tablet 50 MG PO (09:37)
[2021-02-11] MEDS: 0.9% Saline Lock 10 ML Syringe IV (09:42)
--- NOTE | 2021-02-11 12:11 | CASEMGMT ---
TRACY called Teresa at [facility] and let her know the plan is for patient to return today. TRACY will send her orders once completed. A rapid COVID was also ordered. Gretel Butcher MSW CHETNA
[2021-02-11 12:30] LABS: Bedside Glucose 148 mg/dL (70-110)
--- NOTE | 2021-02-11 12:58 | PCM.TXEXTCAR ---
Diet 02/09/21 15:27 Diet: Cardiac - Heart Healthy Food consistency:: Regular Liquid Consistency:: Regular/Thin Dietary Modifications:: Consistent Carbohydrate Sodium Restricted Is pt able to select menu?: Yes Routine Orders/Code Status O2 Liters per Minute: 2 O2 Frequency: Continuous Keep PO Greater than or Equal to (%): 94 Routine Lab Work: CBC (within 3 days) and BMP (within 3 days) Code Status: DNRCC-A Wound(s) LEFT LOWER EXTREMITY: Wound Type: small scab left lateral lower leg Dressing Change: Dry Sterile Dressing LEFT HEEL: Wound Type: healed pressure injury Dressing Change: Dry Sterile Dressing Therapies Weight Bearing: Weight bearing as tolerated Problem/Diagnosis (1) (HFpEF) heart failure with preserved ejection fraction: Status: Chronic (2) Pancytopenia: Status: Acute (3) Chronic kidney disease (CKD): Status: Chronic Comment: Stage IV (4) Chronic obstructive pulmonary disease: Status: Chronic (5) Venous stasis ulcer of left lower extremity: Status: Chronic (6) Anasarca: Status: Acute (7) Hyperlipidemia: Status: Chronic (8) Essential (primary) hypertension: Status: Chronic (9) IMAN (obstructive sleep apnea): Status: Chronic (10) Diabetes mellitus, type II: Status: Chronic (11) Body mass index 45.0-49.9, adult: Status: Chronic Allergies/Procedures Done in Hospital Allergies ARB-Angiotensin Receptor Antagonist Allergy (Verified 02/08/21 20:55) WORSENS RENAL FUNCTION WORSENS RENAL FUNCTION amoxicillin Adverse Reaction (Verified 02/08/21 20:55) Upset Stomach Procedures: None Type of Care/Length of Stay Estimated LOS: Convalescent Care Less Than 30 days Type of Care Needed: Skilled Rehab Potential: Fair Prognosis: Fair Additional Orders/Day of Discharge H&P will serve as current which was dated: 02/08/21 Day of Discharge: 02/11/21 Dietary and Speech Recommendations Dietitian Recommendations/Changes: Will provide Cardiac CHO consistent diet, sodium restricted. Continue 1500 ml FR. Follow Up Care Please follow up with your Primary Care Physician in: 2 weeks Discharge Plan Admission Admit Date/Time: 02/08/21 23:05 Primary Reason for Your Visit: Acute on chronic diastolic CHF Attending Provider: Melody Kearney Primary Care Provider: Jean-Claude Garcia Instructions Additional Instructions / Restrictions: Daily weights, fluid restriction, CHF protocol Discharge Orders/Prescriptions Prescriptions: Continued atorvastatin 80 mg tablet 80 mg PO QHS Qty: 90 RF: 0 bumetanide 1 mg tablet 2 mg PO BID RF: 0 bisacodyl 10 mg suppository 10 mg RC DAILY PRN (Reason: Constipation) RF: 0 mineral oil [Fleet Mineral Oil] Enema 118 ml RC DAILY PRN (Reason: Constipation) RF: 0 magnesium hydroxide 400 mg/5 mL suspension 30 ml PO DAILY PRN (Reason: Constipation) RF: 0 polyethylene glycol 3350 17 gram/dose powder 17 gm PO DAILY PRN (Reason: Constipation) RF: 0 aspirin 81 MG tablet,chewable 81 mg PO DAILY RF: 0 fluticasone propionate 1 SPRAY spray,suspension 2 spray NASAL DAILY RF: 0 carvedilol 25 MG tablet 50 mg PO BID RF: 0 hydralazine 25 MG tablet 25 mg PO TID RF: 0 allopurinol 100 MG tablet 100 mg PO DAILYCM RF: 0 isosorbide mononitrate 120 MG tablet extended release 24 hr 120 mg PO DAILY RF: 0 cholecalciferol (vitamin D3) 1,000 UNIT tablet 1,000 unit PO SUWESA RF: 0 umeclidinium-vilanterol 1 EACH blister with device 1 puff IH DAILY RF: 0 albuterol sulfate 1 INHALER inhaler 2 puff INHALATION Q6H PRN PRN (Reason: Sob &/Or Wheezing) RF: 0 nitroglycerin 0.4 MG tablet, sublingual 0.4 mg SL Q5M PRN (Reason: Chest Pain) RF: 0 ondansetron HCl 8 MG tablet 8 mg PO Q8H PRN PRN (Reason: NAUSEA) Qty: 90 RF: 0 acetaminophen 500 MG tablet 1,000 mg PO Q6H PRN PRN (Reason: Pain Score 1-10) RF: 0 sennosides-docusate sodium 1 TABLET tablet 2 tablet PO BID RF: 0 tamsulosin 0.4 MG capsule 0.4 mg PO DAILY@1730 RF: 0 menthol-zinc oxide 1 APPLIC ointment 1 applic TOPICAL BID RF: 0 clonidine HCl 0.3 MG tablet 0.3 mg PO BID RF: 0 insulin lispro 100 UNIT/ML insulin pen See Protocol unit SC TID RF: 0 metoclopramide HCl [Reglan] 5 mg Tablet 5 mg PO TIDCM RF: 0 Discontinued insulin glargine 100 UNITS/ML insulin pen 30 units SC TIDCM RF: 0 furosemide 10 mg/mL Solution 80 mg IM BID RF: 0 No Action insulin glargine 100 UNITS/ML insulin pen 10 units SC QHS RF: 0 Referrals / Follow Up: Jean-Claude Garcia MD [Primary Care Provider] - Vickie Gutierrez DO [STAFF PHYSICIAN] - Within 2 Weeks Disposition Discharge Orders: Discharge Patient (Routine); Ordered 02/11/21 Ordered By: Dr. Melody Kearney
--- NOTE | 2021-02-11 13:21 | DS.PCM_ITS ---
Providers Date of Admission: 02/08/21 Date of Discharge: 02/11/21 Primary Care Physician: Dr. Jean-Claude Garcia MD Consultations 02/08/21 23:36 Consult: Onc/Wound/emergency operator Routine Comment: Reason for Consult:: wound Reason For Visit: CHF EXACERBATION Diagnosis Discharge Diagnosis (1) (HFpEF) heart failure with preserved ejection fraction: Status: Chronic Code(s): I50.30 - Unspecified diastolic (congestive) heart failure Qualifiers: Heart failure chronicity: acute on chronic Qualified Code(s): I50.33 - Acute on chronic diastolic (congestive) heart failure (2) Pancytopenia: Status: Acute Code(s): D61.818 - Other pancytopenia (3) Chronic kidney disease (CKD): Status: Chronic Code(s): N18.9 - Chronic kidney disease, unspecified Qualifiers: Chronic kidney disease stage: stage 4 (severe) Qualified Code(s): N18.4 - Chronic kidney disease, stage 4 (severe) (4) Chronic obstructive pulmonary disease: Status: Chronic Code(s): J44.9 - Chronic obstructive pulmonary disease, unspecified Qualifiers: COPD type: unspecified COPD Qualified Code(s): J44.9 - Chronic obstructive pulmonary disease, unspecified (5) Venous stasis ulcer of left lower extremity: Status: Chronic Code(s): I83.029 - Varicose veins of left lower extremity with ulcer of unspecified site; L97.929 - Non-pressure chronic ulcer of unspecified part of left lower leg with unspecified severity (6) Anasarca: Status: Acute Code(s): R60.1 - Generalized edema (7) Hyperlipidemia: Status: Chronic Code(s): E78.5 - Hyperlipidemia, unspecified Qualifiers: Hyperlipidemia type: unspecified Qualified Code(s): E78.5 - Hyperlipidemia, unspecified (8) Essential (primary) hypertension: Status: Chronic Code(s): I10 - Essential (primary) hypertension (9) IMAN (obstructive sleep apnea): Status: Chronic Code(s): G47.33 - Obstructive sleep apnea (adult) (pediatric) (10) Diabetes mellitus, type II: Status: Chronic Code(s): E11.9 - Type 2 diabetes mellitus without complications Qualifiers: Diabetes mellitus jail insulin use: with termite treater helper use (11) Body mass index 45.0-49.9, adult: Status: Chronic Code(s): Z68.42 - Body mass index [BMI] 45.0-49.9, adult Medications at Discharge Home Medications aspirin 81 mg PO DAILY 03/03/15 fluticasone propionate 2 spray NASAL DAILY 12/31/15 allopurinol 100 mg PO DAILYCM 03/03/19 carvedilol 50 mg PO BID 03/03/19 cholecalciferol (vitamin D3) 1,000 unit PO SUWESA 03/03/19 hydralazine 25 mg PO TID 03/03/19 isosorbide mononitrate 120 mg PO DAILY 03/03/19 umeclidinium-vilanterol 1 puff IH DAILY 03/03/19 atorvastatin 80 mg tablet 80 mg PO QHS #90 tablet 04/04/19 albuterol sulfate 2 puff INHALATION Q6H PRN PRN 04/27/19 nitroglycerin 0.4 mg SL Q5M PRN 09/19/20 acetaminophen 1,000 mg PO Q6H PRN PRN tablet 12/10/20 ondansetron HCl 8 mg PO Q8H PRN PRN #90 tablet 12/10/20 menthol-zinc oxide 1 applic TOPICAL BID 12/25/20 sennosides-docusate sodium 2 tablet PO BID 12/25/20 tamsulosin 0.4 mg PO DAILY@1730 12/25/20 clonidine HCl 0.3 mg PO BID 01/09/21 insulin glargine 10 units SC QHS 01/09/21 insulin lispro See Protocol SC TID 01/09/21 bisacodyl 10 mg rectal suppository 10 mg RC DAILY PRN 01/14/21 bumetanide 1 mg tablet 2 mg PO BID 01/14/21 magnesium hydroxide 400 mg/5 mL oral suspension 30 ml PO DAILY PRN ml 01/14/21 mineral oil 118 ml RC DAILY PRN 01/14/21 polyethylene glycol 3350 17 gram/dose oral powder 17 gm PO DAILY PRN 01/14/21 metoclopramide HCl [Reglan] 5 mg PO TIDCM 02/08/21 Hospital Course Operations None Procedures None Summary of Care Provided Minutes Spent on Discharge: 50 Hospital Course: 70 y/o male with multiple comorbidities who comes in with progressive swelling of his extremities as well as weight gain. He has been going on for 2 to 3 days. Patient was recently discharged from the hospital with similar condition. He follows with nephrology, Dr. Gutierrez in the outpatient. He was monitored telemetry floor manage as acute on chronic diastolic CHF. He was started on IV Bumex. He continued to diurese and was discharged on oral Bum ex. Follow-up with nephrology as scheduled. He will need repeat blood work within 3 days. During his hospital stay, patient was noted to have pancytopenia which was not new. He had venous stasis ulcer of his left lower extremity. Wound RN was consulted. He was discharged in a stable state on his chronic 2 to 3 L of oxygen to follow- up in the outpatient with nephrology, cardiology and primary care doctor. Physical Exam Narrative Const alert and oriented x3 General Appearance: cooperative HEENT normocephalic Eyes PERRL Neck thyroid normal General: trachea midline Lymph Lymphatic: no lymphadenopathy noted Resp Resp Narrative: Patient appears labored with talking Effort and Inspection: labored Auscultation: diminished lung sounds Cardio regular rate, regular rhythm, S1 normal heart sound and S2 normal heart sound GI normal to inspection, nondistended, normoactive bowel sounds, soft to palpation and non-tender Extremity General Extremity: no tenderness to palpation of joints or extremities Skin Lesions: no lesions Rashes: no rashes Wounds: wounds noted Neuro CN's II-XII intact bilaterally Psych thought process normal and cooperative Appearance: appropriate ABG / Lab / Microbiology Data Result Diagrams: 02/09/21 06:10 02/11/21 06:30 Laboratory: Laboratory Results - last 24 hr 02/10/21 02/10/21 02/11/21 16:14 20:57 06:30 Sodium 141 Potassium 4.0 Chloride 104 Carbon Dioxide 32.0 Anion Gap 5 BUN 82 H Creatinine 2.53 H Estim Creat Clear Calc 27.25 Est GFR (MDRD) Af Amer 32 L Est GFR (MDRD) Non-Af 27 L BUN/Creatinine Ratio 32.4 H Glucose 49 L Calcium 8.5 Total Bilirubin 0.70 AST 8 L ALT 9 L Alkaline Phosphatase 63 Total Protein 6.1 L Albumin 2.6 L Globulin 3.5 Albumin/Globulin Ratio 0.7 L POC Glucose 211 H 177 H 02/11/21 02/11/21 02/11/21 06:33 06:51 06:59 Sodium Potassium Chloride Carbon Dioxide Anion Gap BUN Creatinine Estim Creat Clear Calc Est GFR (MDRD) Af Amer Est GFR (MDRD) Non-Af BUN/Creatinine Ratio Glucose Calcium Total Bilirubin AST ALT Alkaline Phosphatase Total Protein Albumin Globulin Albumin/Globulin Ratio POC Glucose 50 L 61 L 110 02/11/21 11:37 Sodium Potassium Chloride Carbon Dioxide Anion Gap BUN Creatinine Estim Creat Clear Calc Est GFR (MDRD) Af Amer Est GFR (MDRD) Non-Af BUN/Creatinine Ratio Glucose Calcium Total Bilirubin AST ALT Alkaline Phosphatase Total Protein Albumin Globulin Albumin/Globulin Ratio POC Glucose 148 H Microbiology: Microbiology 02/11/21 11:40 SARS-CoV-2 Antigen (Rapid) - Final Interface Orders Microbiology 02/11/21 11:40 Interface Orders SARS-CoV-2 Antigen (Rapid) - Final D/C Instructions Discharge Diet: Low fat / Low cholesterol, 6 Cup Fluid Restriction and 2000 mg Sodium Diet Meaningful Use Info Meaningful Use Diagnoses (Choose all that apply): CHF CHF YESSY/ARB ordered at discharge?: Yes Reason YESSY/ARB not ordered?: Not indicated Documented LVEF (%): 65 Discharge Plan Admission Admit Date/Time: 02/08/21 23:05 Primary Reason for Your Visit: Acute on chronic diastolic CHF Attending Provider: Melody Kearney Primary Care Provider: Jean-Claude Garcia Instructions Additional Instructions / Restrictions: Patient Problems: Altered Health Status related to Hospitalization Patient Goals: *Optimal Level of Health *Keep Appointments *Medication Compliance *Remain SafeDaily weights, fluid restriction, CHF protocol Discharge Orders/Prescriptions Prescriptions: Continued atorvastatin 80 mg tablet 80 mg PO QHS Qty: 90 RF: 0 bumetanide 1 mg tablet 2 mg PO BID RF: 0 bisacodyl 10 mg suppository 10 mg RC DAILY PRN (Reason: Constipation) RF: 0 mineral oil [Fleet Mineral Oil] Enema 118 ml RC DAILY PRN (Reason: Constipation) RF: 0 magnesium hydroxide 400 mg/5 mL suspension 30 ml PO DAILY PRN (Reason: Constipation) RF: 0 polyethylene glycol 3350 17 gram/dose powder 17 gm PO DAILY PRN (Reason: Constipation) RF: 0 aspirin 81 MG tablet,chewable 81 mg PO DAILY RF: 0 fluticasone propionate 1 SPRAY spray,suspension 2 spray NASAL DAILY RF: 0 carvedilol 25 MG tablet 50 mg PO BID RF: 0 hydralazine 25 MG tablet 25 mg PO TID RF: 0 allopurinol 100 MG tablet 100 mg PO DAILYCM RF: 0 isosorbide mononitrate 120 MG tablet extended release 24 hr 120 mg PO DAILY RF: 0 cholecalciferol (vitamin D3) 1,000 UNIT tablet 1,000 unit PO SUWESA RF: 0 umeclidinium-vilanterol 1 EACH blister with device 1 puff IH DAILY RF: 0 albuterol sulfate 1 INHALER inhaler 2 puff INHALATION Q6H PRN PRN (Reason: Sob &/Or Wheezing) RF: 0 nitroglycerin 0.4 MG tablet, sublingual 0.4 mg SL Q5M PRN (Reason: Chest Pain) RF: 0 ondansetron HCl 8 MG tablet 8 mg PO Q8H PRN PRN (Reason: NAUSEA) Qty: 90 RF: 0 acetaminophen 500 MG tablet 1,000 mg PO Q6H PRN PRN (Reason: Pain Score 1-10) RF: 0 sennosides-docusate sodium 1 TABLET tablet 2 tablet PO BID RF: 0 tamsulosin 0.4 MG capsule 0.4 mg PO DAILY@1730 RF: 0 menthol-zinc oxide 1 APPLIC ointment 1 applic TOPICAL BID RF: 0 clonidine HCl 0.3 MG tablet 0.3 mg PO BID RF: 0 insulin lispro 100 UNIT/ML insulin pen See Protocol unit SC TID RF: 0 metoclopramide HCl [Reglan] 5 mg Tablet 5 mg PO TIDCM RF: 0 Discontinued insulin glargine 100 UNITS/ML insulin pen 30 units SC TIDCM RF: 0 furosemide 10 mg/mL Solution 80 mg IM BID RF: 0 No Action insulin glargine 100 UNITS/ML insulin pen 10 units SC QHS RF: 0 Referrals / Follow Up: Vickie Gutierrez DO [STAFF PHYSICIAN] - Within 2 Weeks Jean-Claude Garcia MD [Primary Care Provider] - Disposition Discharge Orders: Discharge Patient (Routine); Ordered 02/11/21 Ordered By: Dr. Melody Kearney Visit Charges Inpatient E&M: 04114 Disch Hosp
--- NOTE | 2021-02-11 13:42 | CASEMGMT ---
Patient is ready for discharge back to [facility]. COVID test was done. Faxed orders to [facility]. Arranged for patient to get picked up at 3p via cot. SW notified patient, RN, guidance secretary, and Ninoska at [facility]. SW also wrote on d/c orders that patient is now active with [facility]. SW also verbalized this to Nnioska at [facility]. Plan: d/c back to [facility] under skilled level of care. [facility] transported patient via cot. Gretel BASILIO
[2021-02-11] MEDS: hydrALAZINE 50 MG Tablet PO (14:31)
--- NOTE | 2021-02-11 15:11 | NURSING ---
Report called to [facility] to Shyla CACERES @ [phone]
--- NOTE | 2021-02-11 15:17 | PHA.DC.MR ---
Pharmacy Service has performed discharge medication reconciliation for this patient. The patient's discharge medication list was reviewed for discrepancies and discrepancies were resolved. Home Medications aspirin 81 mg PO DAILY 03/03/15 fluticasone propionate 2 spray NASAL DAILY 12/31/15 allopurinol 100 mg PO DAILYCM 03/03/19 carvedilol 50 mg PO BID 03/03/19 cholecalciferol (vitamin D3) 1,000 unit PO SUWESA 03/03/19 hydralazine 25 mg PO TID 03/03/19 isosorbide mononitrate 120 mg PO DAILY 03/03/19 umeclidinium-vilanterol 1 puff IH DAILY 03/03/19 atorvastatin 80 mg tablet 80 mg PO QHS #90 tablet 04/04/19 albuterol sulfate 2 puff INHALATION Q6H PRN PRN 04/27/19 nitroglycerin 0.4 mg SL Q5M PRN 09/19/20 acetaminophen 1,000 mg PO Q6H PRN PRN tablet 12/10/20 ondansetron HCl 8 mg PO Q8H PRN PRN #90 tablet 12/10/20 menthol-zinc oxide 1 applic TOPICAL BID 12/25/20 sennosides-docusate sodium 2 tablet PO BID 12/25/20 tamsulosin 0.4 mg PO DAILY@1730 12/25/20 clonidine HCl 0.3 mg PO BID 01/09/21 insulin glargine 10 units SC QHS 01/09/21 insulin lispro See Protocol SC TID 01/09/21 bisacodyl 10 mg rectal suppository 10 mg RC DAILY PRN 01/14/21 bumetanide 1 mg tablet 2 mg PO BID 01/14/21 magnesium hydroxide 400 mg/5 mL oral suspension 30 ml PO DAILY PRN ml 01/14/21 mineral oil 118 ml RC DAILY PRN 01/14/21 polyethylene glycol 3350 17 gram/dose oral powder 17 gm PO DAILY PRN 01/14/21 metoclopramide HCl [Reglan] 5 mg PO TIDCM 02/08/21
== END 2021-02-11 15:00 | disposition home or self-care (01) | DRG 291 ==
LOC: ED 22:35 → PCU 02-09 00:35
PROVIDERS: Nurse Practitioner Family; Admitting Provider Hospitalist; Emergency Provider Emergency Medicine; PCP Family Medicine; Visit Provider Internal Medicine
DX: I13.0 Hypertensive heart and chronic kidney disease with heart failure and stage 1 through stage 4 chronic kidney disease, or unspecified chronic kidney disease (principal); I50.33 Acute on chronic diastolic (congestive) heart failure; N18.4 Chronic kidney disease, stage 4 (severe); D61.818 Other pancytopenia; Z68.42 Body mass index [BMI] 45.0-49.9, adult; L97.929 Non-pressure chronic ulcer of unspecified part of left lower leg with unspecified severity; E11.22 Type 2 diabetes mellitus with diabetic chronic kidney disease; I87.8 Other specified disorders of veins; Z79.4 Long term (current) use of insulin; Z79.51 Long term (current) use of inhaled steroids; Z79.899 Other long term (current) drug therapy; Z87.891 Personal history of nicotine dependence; J44.9 Chronic obstructive pulmonary disease, unspecified; E78.5 Hyperlipidemia, unspecified; G47.33 Obstructive sleep apnea (adult) (pediatric); E66.01 Morbid (severe) obesity due to excess calories; E11.65 Type 2 diabetes mellitus with hyperglycemia; Z99.81 Dependence on supplemental oxygen; E11.622 Type 2 diabetes mellitus with other skin ulcer
CPT/HCPCS: 36415; 51702; 71045; 80048; 80053; 82962; 83880; 84484; 85025; 87426; 93005; 94002; 94003; 94640; 99285; A4216; J1940

== ENCOUNTER 2021-02-13 14:36 | Emergency (ER) | payer MEDICARE, OTHER, SELFPAY ==
[2021-02-13 14:40] VITALS: BP 168/61; PULSE 74; RESP 20; TEMP 36.9; O2SAT 100; BMI 47.7
[2021-02-13 14:45] VITALS: BP 168/61; PULSE 74; RESP 20; TEMP 36.9; O2SAT 100; O2SAT 99
--- NOTE | 2021-02-13 14:50 | EKG12_ITS ---
Test Reason : Blood Pressure : / mmHG Vent. Rate : 067 BPM Atrial Rate : 067 BPM P-R Int : 154 ms QRS Dur : 126 ms QT Int : 510 ms P-R-T Axes : 033 -68 048 degrees QTc Int : 538 ms Sinus rhythm with occasional Premature ventricular complexes Left axis deviation Right bundle branch block Abnormal ECG Confirmed by SHELTON GARCIA, SUBHA ([id number]), department editor JOSEPH ZELAYA ([id number]) on 02/17/2021 9:29:48 AM Referred By: MONSE Confirmed By:SUBHA PEOPLES MD
--- NOTE | 2021-02-13 14:51 | ED.VIS.DYS ---
HPI History of Present Illness Chief Complaint: Shortness of Breath Informant: patient Narrative Narrative: Patient presents with shortness of breath. He states he has been feeling this way ever since leaving the hospital 2 days ago. He feels more swollen today. He states he has had a cough which is been nonproductive. He denies any fevers. He denies any chest pain. He feels his hands and legs are swollen. He does have a history of anasarca, CHF and chronic kidney disease. He was just discharged in the hospital 2 days ago for a CHF exacerbation. He was started on IV Bumex and left the hospital on oral Bumex. He states that he has been medication compliant at the senior care. care home did turn up his oxygen from 2.5 to 4 L to maintain his oxygen saturation. [facility] Medical History DEVAN (acute kidney injury) BMI 33.0-33.9,adult CKD (chronic kidney disease), stage III COPD (chronic obstructive pulmonary disease) Essential (primary) hypertension Gastrointestinal bleed Hyperlipidemia Lymphedema of both lower extremities Non-pressure ulcer of right lower extremity with fat layer exposed Right bundle branch block (RBBB) Secondary pulmonary arterial hypertension Syncope and collapse Traumatic open wound of right lower leg Traumatic open wound of right lower leg with delayed healing Type 2 diabetes mellitus Wound of right leg Home Medications aspirin 81 mg PO DAILY 03/03/15 [History Last Taken 01/09/21] fluticasone propionate 2 spray NASAL DAILY 12/31/15 [History Last Taken 01/09/21] allopurinol 100 mg PO DAILYCM 03/03/19 [History Last Taken 01/09/21] carvedilol 50 mg PO BID 03/03/19 [History Last Taken 01/09/21] cholecalciferol (vitamin D3) 1,000 unit PO SUWESA 03/03/19 [History Last Taken 01/07/21] hydralazine 25 mg PO TID 03/03/19 [History Last Taken 01/09/21] isosorbide mononitrate 120 mg PO DAILY 03/03/19 [History Last Taken 01/09/21] umeclidinium-vilanterol 1 puff IH DAILY 03/03/19 [History Last Taken 01/05/21] atorvastatin 80 mg tablet 80 mg PO QHS #90 tablet 04/04/19 [History Last Taken 01/08/21] albuterol sulfate 2 puff INHALATION Q6H PRN PRN 04/27/19 [History Last Taken 01/05/21] nitroglycerin 0.4 mg SL Q5M PRN 09/19/20 [History Last Taken Unknown] acetaminophen 1,000 mg PO Q6H PRN PRN tablet 12/10/20 [Rx Last Taken 01/08/21] ondansetron HCl 8 mg PO Q8H PRN PRN #90 tablet 12/10/20 [Rx Last Taken 01/06/21] menthol-zinc oxide 1 applic TOPICAL BID 12/25/20 [History Last Taken 01/09/21] sennosides-docusate sodium 2 tablet PO BID 12/25/20 [History Last Taken 01/09/21] tamsulosin 0.4 mg PO DAILY@1730 12/25/20 [History Last Taken 01/08/21] clonidine HCl 0.3 mg PO BID 01/09/21 [History Last Taken 01/09/21] insulin glargine 10 units SC QHS 01/09/21 [History Last Taken 01/08/21] insulin lispro See Protocol SC TID 01/09/21 [History Last Taken 01/09/21] bisacodyl 10 mg rectal suppository 10 mg RC DAILY PRN 01/14/21 [History Last Taken Unknown] bumetanide 1 mg tablet 2 mg PO BID 01/14/21 [History Last Taken Unknown] magnesium hydroxide 400 mg/5 mL oral suspension 30 ml PO DAILY PRN ml 01/14/21 [History Last Taken Unknown] mineral oil 118 ml RC DAILY PRN 01/14/21 [History Last Taken Unknown] polyethylene glycol 3350 17 gram/dose oral powder 17 gm PO DAILY PRN 01/14/21 [History Last Taken Unknown] metoclopramide HCl [Reglan] 5 mg PO TIDCM 02/08/21 [History Last Taken Unknown] Allergy/AdvReac Type Severity Reaction Status Date / Time ARB-Angiotensin Receptor Allergy WORSENS Verified 02/13/21 14:45 Antagonist RENAL FUNCTION amoxicillin AdvReac Upset Verified 02/13/21 14:45 Stomach Family History Other Diabetes Heart disease Hypertension Surgical History A-V fistula (05/09/20) History of cataract surgery Social History Smoking Status: Former smoker pack-years: 30 how long ago did patient quit smokin years ago alcohol intake: current details: Occasionally substance use type: marijuana caffeine: Yes Type: coffee and tea ROS ROS ED Constitutional Constitutional ED: Denies chills or fever(s) Eyes Eyes: Denies blurry vision, change in vision or diplopia ENT ENT ED: Denies ear pain, rhinorrhea or sore throat Cardiovascular Cardiovascular: Denies chest pain or palpitations Respiratory/Chest Respiratory/Chest: Reports dyspnea Gastrointestinal Gastrointestinal: Denies abdominal pain, diarrhea, nausea or vomiting Genitourinary Genitourinary ED: Denies dysuria, hematuria or urinary frequency Musculoskeletal Musculoskeletal: Reports other Details: Peripheral edema Integumentary Denies change in pigmentation or rash Neurologic Neurologic: Denies headache(s), numbness or weakness Psychiatric Psychiatric: Denies anxiety or depression Endocrine Endocrinology: Denies polydipsia or polyuria Hematologic/Lymphatic Hematologic/Lymphatic: Denies easy bruising Allergic/Immunologic Allergic/Immunologic ED: Denies urticaria EXAM Physical Exam Const Vital Signs: 02/13/21 14:40 02/13/21 14:45 02/13/21 16:49 Temperature 98.4 F 98.4 F Temperature Source Temporal Temporal Pulse Rate 74 74 65 Respiratory Rate 20 H 20 H 18 Respiratory Effort Short of Breath Blood Pressure 168/61 H 168/61 H 160/56 H Blood Pressure Mean 96 96 90 Pulse Ox 100 100 100 Oxygen Delivery Method Nasal Cannula Nasal Cannula Oxygen Flow Rate (L/min) 4 3 Positive well nourished and well developed General Appearance ED: well developed and NAD HEENT Reports moist mucous membranes normocephalic and atraumatic; Negative for tenderness Eyes PERRL and EOMs intact bilaterally Neck supple and no JVD Chest Wall Chest: Negative for tenderness Resp normal respiratory effort Effort and Inspection: Negative for respiratory distress Auscultation: rales bilateral base Cardio regular rate, regular rhythm and no murmurs Cardio Narrative: PVCs noted Rate: regular rate Rhythm: regular rhythm GI soft to palpation, non-tender and non-distended Palpation: soft Back/Spine no CVA tenderness and no thoracic nor lumbar tenderness Cervical Spine: Negative for cervical spine tenderness Extremity normal to inspection and full ROM Extremity Narrative: Diffuse extremity edema with anasarca. Venous stasis changes on lower extremities. No erythema or cellulitic changes General Extremety ED: Negative for tenderness Neuro oriented x3, CN's II-XII intact bilaterally and no sensory deficits noted Sensorium / Orientation: awake and alert Motor Exam: strength 5/5 throughout Psych mental status grossly normal Skin no rashes or lesions noted MDM MDM MDM Narrative Medical decision making narrative: The patient's EKG was sinus rhythm with PVCs. There is a right bundle branch block noted. No other ischemic changes. Chest x-ray shows no acute changes he does have chronic CHF but this is not worse than his last chest x-ray. His white blood cell count is normal. Hemoglobin is baseline. Creatinine is 2.7 which is baseline. Troponin is normal. BNP is 658. The patient's oxygen was weaned to 2 L nasal cannula and he was 100%. At this time I do do not see any acute reason the patient needs to be readmitted to the hospital. I will give him 1 additional dose of Bumex to see if this will help with diuresis. He will be discharged back to his facility. Lab Data Labs: Laboratory Results - last 24 hr 02/13/21 02/13/21 02/13/21 15:30 15:30 15:30 WBC 5.6 RBC 2.97 L Hgb 9.1 L Hct 30.5 L MCV 102.7 H MCH 30.6 MCHC 29.8 L RDW Std Deviation 63.4 H RDW Coeff of Gina 16.7 H Plt Count 112 L MPV 10.0 Immature Gran % (Auto) 0.200 Neut % (Auto) 83.3 H Lymph % (Auto) 5.9 L Rush % (Auto) 7.0 Eos % (Auto) 3.2 Baso % (Auto) 0.4 Absolute Neuts (auto) 4.7 Absolute Lymphs (auto) 0.33 L Nucleated RBC % 0 Differential Comment SCANNED Sodium 139 Potassium 4.4 Chloride 103 Carbon Dioxide 33.0 H Anion Gap 3 L BUN 88 H Creatinine 2.74 H Estim Creat Clear Calc 25.16 Est GFR (MDRD) Af Amer 30 L Est GFR (MDRD) Non-Af 24 L BUN/Creatinine Ratio 32.1 H Glucose 111 H Calcium 8.8 Troponin I < 0.015 B-Natriuretic Peptide 658.5 H Radiography Diagnostic Testing: Radiology Impression Chest X-Ray 02/13/21 15:34 IMPRESSION: No interval change in findings of chronic CHF Electronically Signed: Hany Oneal MD at 17:00 EDT , Service support , EKG Initial EKG: Comments: Sinus rhythm with a right moderate block. PVCs noted. No acute ischemic changes. QTc 538, MA interval 154 Discharge Plan Triage Chief Complaint: Shortness of Breath ED Provider: Bharath Barnes Dx/Rx/DC Orders Clinical Impression: (HFpEF) heart failure with preserved ejection fraction Instructions: ED CHF Left Side Prescriptions: No Action atorvastatin 80 mg tablet 80 mg PO QHS Qty: 90 RF: 0 bumetanide 1 mg tablet 2 mg PO BID RF: 0 bisacodyl 10 mg suppository 10 mg RC DAILY PRN (Reason: Constipation) RF: 0 mineral oil [Fleet Mineral Oil] Enema 118 ml RC DAILY PRN (Reason: Constipation) RF: 0 magnesium hydroxide 400 mg/5 mL suspension 30 ml PO DAILY PRN (Reason: Constipation) RF: 0 polyethylene glycol 3350 17 gram/dose powder 17 gm PO DAILY PRN (Reason: Constipation) RF: 0 aspirin 81 MG tablet,chewable 81 mg PO DAILY RF: 0 fluticasone propionate 1 SPRAY spray,suspension 2 spray NASAL DAILY RF: 0 carvedilol 25 MG tablet 50 mg PO BID RF: 0 hydralazine 25 MG tablet 25 mg PO TID RF: 0 allopurinol 100 MG tablet 100 mg PO DAILYCM RF: 0 isosorbide mononitrate 120 MG tablet extended release 24 hr 120 mg PO DAILY RF: 0 cholecalciferol (vitamin D3) 1,000 UNIT tablet 1,000 unit PO SUWESA RF: 0 umeclidinium-vilanterol 1 EACH blister with device 1 puff IH DAILY RF: 0 albuterol sulfate 1 INHALER inhaler 2 puff INHALATION Q6H PRN PRN (Reason: Sob &/Or Wheezing) RF: 0 nitroglycerin 0.4 MG tablet, sublingual 0.4 mg SL Q5M PRN (Reason: Chest Pain) RF: 0 ondansetron HCl 8 MG tablet 8 mg PO Q8H PRN PRN (Reason: NAUSEA) Qty: 90 RF: 0 acetaminophen 500 MG tablet 1,000 mg PO Q6H PRN PRN (Reason: Pain Score 1-10) RF: 0 sennosides-docusate sodium 1 TABLET tablet 2 tablet PO BID RF: 0 tamsulosin 0.4 MG capsule 0.4 mg PO DAILY@1730 RF: 0 menthol-zinc oxide 1 APPLIC ointment 1 applic TOPICAL BID RF: 0 clonidine HCl 0.3 MG tablet 0.3 mg PO BID RF: 0 insulin lispro 100 UNIT/ML insulin pen See Protocol unit SC TID RF: 0 insulin glargine 100 UNITS/ML insulin pen 10 units SC QHS RF: 0 metoclopramide HCl [Reglan] 5 mg Tablet 5 mg PO TIDCM RF: 0 Primary Care Provider: Jean-Claude Garcia Referrals: Jean-Claude Garcia MD [Primary Care Provider] - Disposition Disposition: [facility] Facility
--- NOTE | 2021-02-13 15:34 | RAD_ITS ---
STUDY: X-RAY CHEST REASON FOR EXAM: Male, 70 years old. sob TECHNIQUE: Single AP portable view of the chest. COMPARISON: FEBRUARY 08, 2021 FINDINGS: Unresolved mild right pulmonary edema and moderate-sized pleural effusion. Unresolved small left pleural effusion and interstitial edema. Unresolved mild cardiomegaly. Stable mediastinal contours. Stable osseous structures. There is no demonstrated abnormality of the visualized soft tissue structures of the upper abdomen. RAD/Chest 1 View (Portable) IMPRESSION: No interval change in findings of chronic CHF Electronically Signed: Hany Oneal MD at 17:00 EDT , Service support ,
[2021-02-13 15:41] LABS: Absolute Lymphocyte Count 0.33 X10^3/uL (0.83-4.51); Absolute Neutrophil Count 4.7 X10^3/uL (2.0-7.7); Basophil# 0.02 X10^3/uL; Basophil% 0.4 % (0-1); Eosinophil# 0.18 X10^3/uL; Eosinophils% 3.2 % (0-5); Hematocrit 30.5 % (40-54); Hemoglobin 9.1 g/dL (13.0-16.5); Lymphocyte # 0.33 X10^3/ul (0.83-4.51); Lymphocyte % 5.9 % (19-41); Mean Corp Hgb Conc 29.8 g/dL (32-36); Mean Corpuscular Hgb 30.6 pg (27.0-32.0); Mean Corpuscular Volume 102.7 fL (80-94); Monocyte# 0.39 X10^3/uL; NRBC Flagged by Analyzer 0 % (0-5); Neutrophil # 4.68 X10^3/uL (2.7-7.7); Neutrophil % 83.3 % (47-70); POSITIVE DIFFERENTIAL YES; Platelet Count 112 K/mm3 (150-450); RBC Distribution Width CV 16.7 % (11.6-14.6); RBC Distribution Width SD 63.4 fl (35.1-43.9); Red Blood Count 2.97 M/mm3 (4.6-6.2); White Blood Count 5.6 K/mm3 (4.4-11.0)
[2021-02-13 15:57] LABS: Anion Gap 3 (5-15); BUN 88 mg/dL (7-18); BUN/Creat Ratio 32.1 RATIO (10-20); Calcium,Total 8.8 mg/dL (8.5-10.1); Chloride 103 mmol/L (98-107); Creatinine, Serum 2.74 mg/dL (0.70-1.30); EST Glomerular Filtration Rate 24 mL/min (>60); Est Glom Filt Rate - Afr Amer 30 mL/min (>60); Estimated Creatinine Clearance 25.16 ml/min; Glucose 111 mg/dL (74-106); Potassium 4.4 mmol/L (3.5-5.1); Sodium Level 139 mmol/L (136-145)
[2021-02-13 16:04] LABS: Differential Indicated SCAN CRITERIA MET
[2021-02-13 16:16] LABS: Differential Comment SCANNED
[2021-02-13 16:40] LABS: BNP,B-Type NATRIURETIC PEPTIDE 658.5 pg/mL (0-100)
[2021-02-13 16:49] VITALS: BP 160/56; PULSE 65; RESP 18; O2SAT 100
[2021-02-13 17:31] VITALS: BP 153/67; PULSE 64; RESP 20; O2SAT 100
[2021-02-13] MEDS: Bumetanide 1 MG/4 ML Vial IV (17:32)
[2021-02-13 17:39] VITALS: O2SAT 99
--- NOTE | 2021-02-13 17:53 | ED.RN ---
REPORT CALLED TO [facility]
== END 2021-02-13 18:53 | disposition skilled nursing facility (03) ==
PROVIDERS: Emergency Provider Emergency Medicine; PCP Family Medicine
DX: I13.0 Hypertensive heart and chronic kidney disease with heart failure and stage 1 through stage 4 chronic kidney disease, or unspecified chronic kidney disease (principal); I50.30 Unspecified diastolic (congestive) heart failure; E11.22 Type 2 diabetes mellitus with diabetic chronic kidney disease; N18.30 Chronic kidney disease, stage 3 unspecified; J44.9 Chronic obstructive pulmonary disease, unspecified; E78.5 Hyperlipidemia, unspecified; Z79.4 Long term (current) use of insulin; Z79.51 Long term (current) use of inhaled steroids; Z79.899 Other long term (current) drug therapy; Z87.891 Personal history of nicotine dependence
CPT/HCPCS: 71045; 80048; 83880; 84484; 85025; 93005; 96374; 99285; A4216

== ENCOUNTER → 2021-03-04 08:43 | Outpatient (CLI) | payer MEDICARE, OTHER, SELFPAY ==
[2021-02-13 14:40] VITALS: BMI 47.7
[2021-03-04 08:59] VITALS: BP 128/57; PULSE 64; RESP 16; TEMP 36.8; O2SAT 99; BMI 44.7
[2021-03-04] MEDS: 0.9% NaCl Peripheral Flush Adult/Peds IV (09:07)
[2021-03-04 09:44] VITALS: BP 112/46; PULSE 57; RESP 16; TEMP 36.3; O2SAT 100
[2021-03-04 10:36] VITALS: BP 125/48; PULSE 57; RESP 18; TEMP 36.3
[2021-03-04 11:36] VITALS: BP 139/63; PULSE 56; RESP 16; TEMP 36.3; O2SAT 98
[2021-03-04] MEDS: Furosemide 20 MG/2 ML VIAL IV (12:28)
[2021-03-04 12:38] VITALS: BP 136/60; PULSE 62; RESP 18; TEMP 36.2
== END ==
PROVIDERS: PCP Family Medicine; Referring Provider Internal Medicine Hematology & Oncology; Visit Provider Internal Medicine Hematology & Oncology
DX: N18.4 Chronic kidney disease, stage 4 (severe) (principal); D63.1 Anemia in chronic kidney disease
CPT/HCPCS: 96374; 36430; 86850; 86900; 86901; 86920; 86922; J7040; J7050; P9016; A4216; J1940

== ENCOUNTER 2021-03-30 21:07 | Inpatient (IN) | payer MEDICARE, OTHER, SELFPAY ==
[2021-03-04 08:59] VITALS: BMI 44.7
[2021-03-30 21:09] VITALS: BP 152/63; PULSE 62; RESP 12; TEMP 36.7; O2SAT 98; BMI 46.1
[2021-03-30 21:14] VITALS: BP 152/63; PULSE 62; RESP 12; TEMP 36.7; O2SAT 98
[2021-03-30 21:37] LABS: Absolute Lymphocyte Count 0.24 X10^3/uL (0.83-4.51); Absolute Neutrophil Count 5.1 X10^3/uL (2.0-7.7); Basophil# 0.01 X10^3/uL; Basophil% 0.2 % (0-1); Eosinophil# 0.18 X10^3/uL; Hemoglobin 9.3 g/dL (13.0-16.5); Lymphocyte # 0.24 X10^3/ul (0.83-4.51); Lymphocyte % 3.9 % (19-41); Mean Corpuscular Hgb 29.2 pg (27.0-32.0); Mean Platelet Vol. 10.2 fl (6.2-12.0); Monocyte# 0.52 X10^3/uL; Monocyte% 8.5 % (0-10); NRBC Flagged by Analyzer 0 % (0-5); Neutrophil # 5.11 X10^3/uL (2.7-7.7); Neutrophil % 83.9 % (47-70); POSITIVE DIFFERENTIAL YES; Platelet Count 127 K/mm3 (150-450); RBC Distribution Width CV 16.2 % (11.6-14.6); RBC Distribution Width SD 55.6 fl (35.1-43.9); Red Blood Count 3.19 M/mm3 (4.6-6.2); White Blood Count 6.1 K/mm3 (4.4-11.0)
[2021-03-30 21:41] LABS: Differential Indicated SCAN CRITERIA MET
[2021-03-30 21:52] LABS: Anion Gap 6 (5-15); BUN 140 mg/dL (7-18); BUN/Creat Ratio 24.9 RATIO (10-20); Calcium,Total 7.9 mg/dL (8.5-10.1); Chloride 89 mmol/L (98-107); Creatinine, Serum 5.63 mg/dL (0.70-1.30); EST Glomerular Filtration Rate 11 mL/min (>60); Est Glom Filt Rate - Afr Amer 13 mL/min (>60); Estimated Creatinine Clearance 12.25 ml/min; Glucose 146 mg/dL (74-106); Potassium 3.2 mmol/L (3.5-5.1); Sodium Level 130 mmol/L (136-145)
[2021-03-30 22:00] LABS: Anisocytosis 1+; Hypochromasia 1+; Macrocytosis RARE; Red Cell Morphology N CHROM NORMAL (NORM C&C)
--- NOTE | 2021-03-30 22:21 | EKG12_ITS ---
Test Reason : WEAKNESS Blood Pressure : / mmHG Vent. Rate : 064 BPM Atrial Rate : 064 BPM P-R Int : 168 ms QRS Dur : 144 ms QT Int : 458 ms P-R-T Axes : 009 -70 052 degrees QTc Int : 472 ms Normal sinus rhythm Left axis deviation Right bundle branch block Abnormal ECG Confirmed by SHADY GARCIA, AHKAN ([id number]), material expeditor JOSEPH ZELAYA ([id number]) on 04/02/2021 7:51:25 AM Referred By: JUSTIN Confirmed By:HAKAN CARUSO MD
[2021-03-30 22:38] VITALS: BP 166/61; PULSE 63; RESP 14; TEMP 36.7; O2SAT 99
--- NOTE | 2021-03-30 22:45 | EDS_ITS ---
HPI History of Present Illness Chief Complaint: Fatigue Informant: patient Onset/Context/Timing Onset: Days Context: Gradual Onset Timing: Continuous Current Severity: Moderate Maximum Severity: Moderate Narrative Narrative: The patient is a 70-year-old male multiple comorbidities including chronic kidney disease, not on dialysis, CHF, chronic respiratory failure, sleep apnea, obesity presents to the emergency department with generalized fatigue and malaise. Patient states over the past 3 days, he has had worsening fatigue. He has been confused with diminished urinary output. He denies fever. He had a scant cough. He denies increasing shortness of breath. Patient states he normally makes urine but has had very little out. He denies any recent change in medications. He is otherwise been in his normal state of health. Prior similar symptoms: Yes Recent Illness/Hospitalization: Yes PFSH COUNTS INCLUDE 234 BEDS AT THE [facility] Medical History Acute dyspnea DEVAN (acute kidney injury) BMI 33.0-33.9,adult CKD (chronic kidney disease), stage III COPD (chronic obstructive pulmonary disease) Essential (primary) hypertension Gastrointestinal bleed Hyperlipidemia Lymphedema of both lower extremities Non-pressure ulcer of right lower extremity with fat layer exposed Right bundle branch block (RBBB) Secondary pulmonary arterial hypertension Syncope and collapse Traumatic open wound of right lower leg Traumatic open wound of right lower leg with delayed healing Type 2 diabetes mellitus Wound of right leg Home Medications aspirin 81 mg PO DAILY 03/03/15 [History Last Taken 01/09/21] fluticasone propionate 2 spray NASAL DAILY 12/31/15 [History Last Taken 01/09/21] allopurinol 100 mg PO DAILYCM 03/03/19 [History Last Taken 01/09/21] carvedilol 50 mg PO BID 03/03/19 [History Last Taken 01/09/21] cholecalciferol (vitamin D3) 1,000 unit PO SUWESA 03/03/19 [History Last Taken 01/07/21] hydralazine 25 mg PO TID 03/03/19 [History Last Taken 01/09/21] isosorbide mononitrate 120 mg PO DAILY 03/03/19 [History Last Taken 01/09/21] umeclidinium-vilanterol 1 puff IH DAILY 03/03/19 [History Last Taken 01/05/21] atorvastatin 80 mg tablet 80 mg PO QHS #90 tablet 04/04/19 [History Last Taken 01/08/21] albuterol sulfate 2 puff INHALATION Q6H PRN PRN 04/27/19 [History Last Taken 01/05/21] nitroglycerin 0.4 mg SL Q5M PRN 09/19/20 [History Last Taken Unknown] acetaminophen 1,000 mg PO Q6H PRN PRN tablet 12/10/20 [Rx Last Taken 01/08/21] ondansetron HCl 8 mg PO Q8H PRN PRN #90 tablet 12/10/20 [Rx Last Taken 01/06/21] menthol-zinc oxide 1 applic TOPICAL BID 12/25/20 [History Last Taken 01/09/21] sennosides-docusate sodium 2 tablet PO BID 12/25/20 [History Last Taken 01/09/21] tamsulosin 0.4 mg PO DAILY@1730 12/25/20 [History Last Taken 01/08/21] clonidine HCl 0.3 mg PO BID 01/09/21 [History Last Taken 01/09/21] insulin glargine 10 units SC QHS 01/09/21 [History Last Taken 01/08/21] insulin lispro See Protocol SC TID 01/09/21 [History Last Taken 01/09/21] bisacodyl 10 mg rectal suppository 10 mg RC DAILY PRN 01/14/21 [History Last Taken Unknown] bumetanide 1 mg tablet 2 mg PO BID 01/14/21 [History Last Taken Unknown] magnesium hydroxide 400 mg/5 mL oral suspension 30 ml PO DAILY PRN ml 01/14/21 [History Last Taken Unknown] mineral oil 118 ml RC DAILY PRN 01/14/21 [History Last Taken Unknown] polyethylene glycol 3350 17 gram/dose oral powder 17 gm PO DAILY PRN 01/14/21 [History Last Taken Unknown] metoclopramide HCl [Reglan] 5 mg PO TIDCM 02/08/21 [History Last Taken Unknown] Allergy/AdvReac Type Severity Reaction Status Date / Time ARB-Angiotensin Receptor Allergy WORSENS Verified 03/30/21 21:16 Antagonist RENAL FUNCTION amoxicillin AdvReac Upset Verified 03/30/21 21:16 Stomach Family History Other Diabetes Heart disease Hypertension Surgical History A-V fistula (05/09/20) History of cataract surgery Social History Smoking Status: Former smoker pack-years: 30 how long ago did patient quit smokin years ago alcohol intake: current details: Occasionally substance use type: marijuana caffeine: Yes Type: coffee and tea ROS ROS ED Constitutional Constitutional ED: Denies chills or fever(s) Eyes Eyes: Denies blurry vision or change in vision ENT ENT ED: Denies ear pain or sore throat Cardiovascular Cardiovascular: Denies chest pain or palpitations Respiratory/Chest Respiratory/Chest: Reports cough Gastrointestinal Gastrointestinal: Reports nausea Genitourinary Genitourinary ED: Denies dysuria or urinary frequency Musculoskeletal Musculoskeletal: Denies arthralgias or myalgias Integumentary Denies rash Neurologic Neurologic: Denies headache(s) or paresthesias Psychiatric Psychiatric: Denies anxiety or depression Endocrine Endocrinology: Denies polydipsia or polyuria Allergic/Immunologic Allergic/Immunologic ED: Denies urticaria EXAM Physical Exam Const Vital Signs: 03/30/21 21:09 03/30/21 21:14 03/30/21 21:16 Temperature 98.0 F 98.0 F Temperature Source Oral Oral Pulse Rate 62 62 Respiratory Rate 12 12 Respiratory Pattern Normal Blood Pressure 152/63 H 152/63 H Blood Pressure Mean 92 92 Pulse Ox 98 98 Oxygen Delivery Method Nasal Cannula Room Air Oxygen Flow Rate (L/min) 4 03/30/21 22:38 03/30/21 23:16 Temperature 98.0 F 98.2 F Temperature Source Oral Oral Pulse Rate 63 65 Respiratory Rate 14 12 Respiratory Pattern Blood Pressure 166/61 H 165/65 H Blood Pressure Mean 96 98 Pulse Ox 99 98 Oxygen Delivery Method Room Air Room Air Oxygen Flow Rate (L/min) Positive well nourished and well developed General Appearance ED: well developed HEENT Reports normocephalic, head/scalp atraumatic and moist mucous membranes Eyes PERRL and EOMs intact bilaterally Neck no lymphadenopathy and supple General: Negative for tenderness Chest Wall inspection of chest normal Resp normal respiratory effort Auscultation: diminished lung sounds Cardio regular rate, regular rhythm and no murmurs GI normal to inspection, nondistended, normoactive bowel sounds Palpation: Negative for tender, guarding or rebound tenderness present Back/Spine no CVA tenderness Cervical Spine: Negative for cervical spine tenderness Thoracic Spine / Upper Back: Negative for thoracic spinal tenderness Extremity normal to inspection General Extremety ED: Yes edema; Negative for other findings General Extremity: edema; Negative for other findings Neuro oriented x3 and CN's II-XII intact bilaterally Neuro Narrative: No focal deficits appreciated. Sensorium / Orientation: alert Psych mental status grossly normal Skin no rashes or lesions noted, no wounds and skin turgor normal MDM MDM MDM Narrative Medical decision making narrative: Patient presents with increasing confusion. He is also had urinary retention. Bladder scan was done which did not show significant obstruction. Catheter was placed and the patient had purulent urine that came out. Labs do show worsening uremia and basic doubling of the patient's underlying kidney disease. Chest x-ray shows chronic change. With the patient's confusion, uremia, and urinary tract infection, I do feel that he would benefit from IV antibiotics and admission as he is likely going to need dialysis. The patient was discussed with the hospitalist. Impression 1. Uremia 2. Acute on chronic kidney injury 3. UTI Lab Data Attestation: I reviewed the patient's lab results. Labs: Laboratory Results - last 24 hr 03/30/21 03/30/21 21:15 21:15 WBC 6.1 RBC 3.19 L Hgb 9.3 L Hct 30.0 L MCV 94.0 MCH 29.2 MCHC 31.0 L RDW Std Deviation 55.6 H RDW Coeff of Gina 16.2 H Plt Count 127 L MPV 10.2 Immature Gran % (Auto) 0.500 Neut % (Auto) 83.9 H Lymph % (Auto) 3.9 L [place] % (Auto) 8.5 Eos % (Auto) 3.0 Baso % (Auto) 0.2 Absolute Neuts (auto) 5.1 Absolute Lymphs (auto) 0.24 L Nucleated RBC % 0 Differential Comment SEE COMMENT RBC Morphology N CHROM Hypochromasia 1+ Anisocytosis 1+ Macrocytosis RARE Sodium 130 L Potassium 3.2 L Chloride 89 L Carbon Dioxide 35.0 H Anion Gap 6 BUN 140 H* Creatinine 5.63 H Estim Creat Clear Calc 12.25 Est GFR (MDRD) Af Amer 13 L Est GFR (MDRD) Non-Af 11 L BUN/Creatinine Ratio 24.9 H Glucose 146 H Calcium 7.9 L Radiography Chest X-Ray - ED: 1 View, Read by ED Physician, Unchanged, Cardiomegaly and CHF Discharge Plan Triage Chief Complaint: Fatigue Other Complaint: Confusion ED Provider: Jaquan Dao Dx/Rx/DC Orders Prescriptions: No Action atorvastatin 80 mg tablet 80 mg PO QHS Qty: 90 RF: 0 bumetanide 1 mg tablet 2 mg PO BID RF: 0 bisacodyl 10 mg suppository 10 mg RC DAILY PRN (Reason: Constipation) RF: 0 mineral oil [Fleet Mineral Oil] Enema 118 ml RC DAILY PRN (Reason: Constipation) RF: 0 magnesium hydroxide 400 mg/5 mL suspension 30 ml PO DAILY PRN (Reason: Constipation) RF: 0 polyethylene glycol 3350 17 gram/dose powder 17 gm PO DAILY PRN (Reason: Constipation) RF: 0 aspirin 81 MG tablet,chewable 81 mg PO DAILY RF: 0 fluticasone propionate 1 SPRAY spray,suspension 2 spray NASAL DAILY RF: 0 carvedilol 25 MG tablet 50 mg PO BID RF: 0 hydralazine 25 MG tablet 25 mg PO TID RF: 0 allopurinol 100 MG tablet 100 mg PO DAILYCM RF: 0 isosorbide mononitrate 120 MG tablet extended release 24 hr 120 mg PO DAILY RF: 0 cholecalciferol (vitamin D3) 1,000 UNIT tablet 1,000 unit PO SUWESA RF: 0 umeclidinium-vilanterol 1 EACH blister with device 1 puff IH DAILY RF: 0 albuterol sulfate 1 INHALER inhaler 2 puff INHALATION Q6H PRN PRN (Reason: Sob &/Or Wheezing) RF: 0 nitroglycerin 0.4 MG tablet, sublingual 0.4 mg SL Q5M PRN (Reason: Chest Pain) RF: 0 ondansetron HCl 8 MG tablet 8 mg PO Q8H PRN PRN (Reason: NAUSEA) Qty: 90 RF: 0 acetaminophen 500 MG tablet 1,000 mg PO Q6H PRN PRN (Reason: Pain Score 1-10) RF: 0 sennosides-docusate sodium 1 TABLET tablet 2 tablet PO BID RF: 0 tamsulosin 0.4 MG capsule 0.4 mg PO DAILY@1730 RF: 0 menthol-zinc oxide 1 APPLIC ointment 1 applic TOPICAL BID RF: 0 clonidine HCl 0.3 MG tablet 0.3 mg PO BID RF: 0 insulin lispro 100 UNIT/ML insulin pen See Protocol unit SC TID RF: 0 insulin glargine 100 UNITS/ML insulin pen 10 units SC QHS RF: 0 metoclopramide HCl [Reglan] 5 mg Tablet 5 mg PO TIDCM RF: 0 Primary Care Provider: Becca Malagon
--- NOTE | 2021-03-30 22:50 | RAD_ITS ---
INDICATION: sob EXAMINATION/TECHNIQUE: X-RAY - XR Chest 1 View COMPARISON: 02/13/2021. FINDINGS: Bilateral interstitial and airspace opacities Tortuous and calcified thoracic aorta. The heart is mildly enlarged. Small right and trace left pleural effusions. No pneumothorax. No acute osseous abnormalities. RAD/Chest 1 View (Portable) IMPRESSION: Cardiomegaly with interstitial edema and small right/trace left pleural effusions. Electronically Signed: Max Kumar MD at 23:39 EDT Tel , Service support ,
[2021-03-30 23:16] VITALS: BP 165/65; PULSE 65; RESP 12; TEMP 36.8; O2SAT 98
[2021-03-30 23:26] LABS: Mucous, Urine 0 SEEN /hpf (<or=2+); Red Blood Cells-Urine 0 SEEN /hpf (0-5); Squamous Epithelial Cells - UA 0 SEEN /hpf (0-5)
[2021-03-30 23:29] LABS: Color, Urine Yellow (Yellow); Glucose, Dipstick Normal (Normal); Ketone-Dipstick Negative (Negative); Leukocyte Esterase-Dipstick 500 /ul (Negative); Nitrite-Dipstick Positive (Negative); Occult Blood-Urine 25 /ul (Negative); Protein-Dipstick 100 mg/dl (Negative); Specific Gravity, Urine 1.015 (1.002-1.030); Urine Bilirubin Dipstick Negative (Negative); Urine Clarity Cloudy (Clear); Urine Urobilinogen Normal (Normal)
[2021-03-30 23:43] LABS: White Blood Cells >100 SEEN /hpf (0-5)
[2021-03-30 23:45] LABS: Bacteria 2+ /hpf (None Seen)
[2021-03-30 23:46] LABS: Amorphous Sediment 1+
--- NOTE | 2021-03-30 23:47 | PCM.HP.STD ---
HPI - General General Date of Admission: 03/30/21 HPI Narrative LAURA MURILLO, is a 70 M who presents with complaints of decreased urine and increased confusion. Patient reports that he has a history of chronic kidney disease and has a fistula however patient has not been placed on dialysis as of yet. Patient states that over the past 2 to 3 days he has noticed that his urine output has dramatically decreased and that he has had increasing periods of confusion. Patient denies fever, chills, shortness of breath, chest pain, nausea, vomiting, diarrhea, constipation. [facility] Medical History Acute dyspnea DEVAN (acute kidney injury) BMI 33.0-33.9,adult CKD (chronic kidney disease), stage III COPD (chronic obstructive pulmonary disease) Essential (primary) hypertension Gastrointestinal bleed Hyperlipidemia Lymphedema of both lower extremities Non-pressure ulcer of right lower extremity with fat layer exposed Right bundle branch block (RBBB) Secondary pulmonary arterial hypertension Syncope and collapse Traumatic open wound of right lower leg Traumatic open wound of right lower leg with delayed healing Type 2 diabetes mellitus Wound of right leg Home Medications aspirin 81 mg PO DAILY 03/03/15 [History Last Taken 01/09/21] fluticasone propionate 2 spray NASAL DAILY 12/31/15 [History Last Taken 01/09/21] allopurinol 100 mg PO DAILYCM 03/03/19 [History Last Taken 01/09/21] carvedilol 50 mg PO BID 03/03/19 [History Last Taken 01/09/21] cholecalciferol (vitamin D3) 1,000 unit PO SUWESA 03/03/19 [History Last Taken 01/07/21] hydralazine 25 mg PO TID 03/03/19 [History Last Taken 01/09/21] isosorbide mononitrate 120 mg PO DAILY 03/03/19 [History Last Taken 01/09/21] umeclidinium-vilanterol 1 puff IH DAILY 03/03/19 [History Last Taken 01/05/21] atorvastatin 80 mg tablet 80 mg PO QHS #90 tablet 04/04/19 [History Last Taken 01/08/21] albuterol sulfate 2 puff INHALATION Q6H PRN PRN 04/27/19 [History Last Taken 01/05/21] nitroglycerin 0.4 mg SL Q5M PRN 09/19/20 [History Last Taken Unknown] acetaminophen 1,000 mg PO Q6H PRN PRN tablet 12/10/20 [Rx Last Taken 01/08/21] ondansetron HCl 8 mg PO Q8H PRN PRN #90 tablet 12/10/20 [Rx Last Taken 01/06/21] menthol-zinc oxide 1 applic TOPICAL BID 12/25/20 [History Last Taken 01/09/21] sennosides-docusate sodium 2 tablet PO BID 12/25/20 [History Last Taken 01/09/21] tamsulosin 0.4 mg PO DAILY@1730 12/25/20 [History Last Taken 01/08/21] clonidine HCl 0.3 mg PO BID 01/09/21 [History Last Taken 01/09/21] insulin glargine 10 units SC QHS 01/09/21 [History Last Taken 01/08/21] insulin lispro See Protocol SC TID 01/09/21 [History Last Taken 01/09/21] bisacodyl 10 mg rectal suppository 10 mg RC DAILY PRN 01/14/21 [History Last Taken Unknown] bumetanide 1 mg tablet 2 mg PO BID 01/14/21 [History Last Taken Unknown] magnesium hydroxide 400 mg/5 mL oral suspension 30 ml PO DAILY PRN ml 01/14/21 [History Last Taken Unknown] mineral oil 118 ml RC DAILY PRN 01/14/21 [History Last Taken Unknown] polyethylene glycol 3350 17 gram/dose oral powder 17 gm PO DAILY PRN 01/14/21 [History Last Taken Unknown] metoclopramide HCl [Reglan] 5 mg PO TIDCM 02/08/21 [History Last Taken Unknown] Allergy/AdvReac Type Severity Reaction Status Date / Time ARB-Angiotensin Receptor Allergy WORSENS Verified 03/30/21 21:16 Antagonist RENAL FUNCTION amoxicillin AdvReac Upset Verified 03/30/21 21:16 Stomach Family History Other Diabetes Heart disease Hypertension Surgical History A-V fistula (05/09/20) History of cataract surgery Social History Smoking Status: Former smoker pack-years: 30 how long ago did patient quit smokin years ago alcohol intake: current details: Occasionally substance use type: marijuana caffeine: Yes Type: coffee and tea ROS Review of Systems ROS Unobtainable: due to mental status Constitutional Constitutional: Reports malaise; Denies anorexia, chills or fever(s) Cardiovascular Cardiovascular: Reports edema; Denies chest pain or palpitations Respiratory/Chest Respiratory/Chest: Denies cough, shortness of breath at rest or shortness of breath with exertion Gastrointestinal Gastrointestinal: Denies abdominal pain, constipation, diarrhea, nausea or vomiting Genitourinary Genitourinary: Reports dysuria and oliguria Musculoskeletal Musculoskeletal: Denies back pain, extremity pain or joint pain Integumentary Integumentary: Denies dry skin Neurologic Neurologic: Reports confusion; Denies abnormal gait, abnormal speech, dizziness or focal weakness Psychiatric Psychiatric: Denies anxiety or depression Endocrine Endocrinology: Denies change in body appearance Hematologic/Lymphatic Hematologic/Lymphatic: Denies easy bleeding or easy bruising Vital Signs Vital Signs Vital Signs: 03/30/21 21:09 03/30/21 21:14 03/30/21 21:16 Temperature 98.0 F 98.0 F Temperature Source Oral Oral Pulse Rate 62 62 Respiratory Rate 12 12 Respiratory Pattern Normal Blood Pressure 152/63 H 152/63 H Blood Pressure Mean 92 92 Pulse Ox 98 98 Oxygen Delivery Method Nasal Cannula Room Air Oxygen Flow Rate (L/min) 4 03/30/21 22:38 03/30/21 23:16 Temperature 98.0 F 98.2 F Temperature Source Oral Oral Pulse Rate 63 65 Respiratory Rate 14 12 Respiratory Pattern Blood Pressure 166/61 H 165/65 H Blood Pressure Mean 96 98 Pulse Ox 99 98 Oxygen Delivery Method Room Air Room Air Oxygen Flow Rate (L/min) Weight Weight: 326 lb 1.019 oz Body Mass Index (BMI) 46.1 Physical Exam Const alert General Appearance: cooperative Orientation / Consciousness: oriented to person, oriented to place and confused HEENT normocephalic and head/scalp atraumatic Eyes conjunctivae normal and no scleral icterus Neck no lymphadenopathy, supple and no JVD General: trachea midline Resp normal respiratory effort and normal air movement Auscultation: diminished lung sounds Cardio regular rate, regular rhythm, S1 normal heart sound and S2 normal heart sound GI normal to inspection, nondistended, normoactive bowel sounds, soft to palpation and non-tender Extremity normal capillary refill and no clubbing, cyanosis or edema General Extremity: no tenderness to palpation of joints or extremities Skin General Skin Exam: no breakdown and turgor normal Lesions: no lesions Rashes: no rashes Neuro no focal motor deficits and no sensory deficits noted Speech: speech normal Motor Exam: general weakness Psych cooperative and affect normal Appearance: appropriate Results Lab / Micro Data Result Diagrams: 03/30/21 21:15 03/30/21 21:15 Labs: Laboratory Results - last 24 hr 03/30/21 03/30/21 03/30/21 21:15 21:15 23:20 WBC 6.1 RBC 3.19 L Hgb 9.3 L Hct 30.0 L MCV 94.0 MCH 29.2 MCHC 31.0 L RDW Std Deviation 55.6 H RDW Coeff of Gina 16.2 H Plt Count 127 L MPV 10.2 Immature Gran % (Auto) 0.500 Neut % (Auto) 83.9 H Lymph % (Auto) 3.9 L [place] % (Auto) 8.5 Eos % (Auto) 3.0 Baso % (Auto) 0.2 Absolute Neuts (auto) 5.1 Absolute Lymphs (auto) 0.24 L Nucleated RBC % 0 Differential Comment SEE COMMENT RBC Morphology N CHROM Hypochromasia 1+ Anisocytosis 1+ Macrocytosis RARE Sodium 130 L Potassium 3.2 L Chloride 89 L Carbon Dioxide 35.0 H Anion Gap 6 BUN 140 H* Creatinine 5.63 H Estim Creat Clear Calc 12.25 Est GFR (MDRD) Af Amer 13 L Est GFR (MDRD) Non-Af 11 L BUN/Creatinine Ratio 24.9 H Glucose 146 H Calcium 7.9 L Urine Color Yellow Urine Clarity Cloudy Urine pH 6.0 Ur Specific [place] 1.015 Urine Protein 100 H Urine Glucose (UA) Normal Urine Ketones Negative Urine Occult Blood 25 H Urine Nitrite Positive H Urine Bilirubin Negative Urine Urobilinogen Normal Ur Leukocyte Esterase 500 H Urine RBC 0 SEEN Urine WBC >100 SEEN Ur Squamous Epith Cells 0 SEEN Amorphous Sediment 1+ Urine Bacteria 2+ Urine Mucus 0 SEEN Radiology Impression Chest X-Ray 03/30/21 22:50 IMPRESSION: Cardiomegaly with interstitial edema and small right/trace left pleural effusions. Electronically Signed: Max Kumar MD at 23:39 EDT Tel , Service support , Assessment & Plan Assessment/Plan (1) UTI (urinary tract infection): QUALIFIERS: Urinary tract infection type: site unspecified Hematuria presence: without hematuria Qualified Code(s): N39.0 - Urinary tract infection, site not specified (2) Chronic kidney disease (CKD): QUALIFIERS: Chronic kidney disease stage: stage 4 (severe) Qualified Code(s): N18.4 - Chronic kidney disease, stage 4 (severe) PLAN: 1. Urinary tract infection -Admit to [facility] with telemetry monitoring for IV antibiotics and fluids -Urinalysis positive protein, positive nitrite, positive leukocyte esterase, positive bacteria. Urine culture pending, completed in ER -Ceftriaxone initiated in ER will continue -PT and OT to eval and treat -Oxygen per protocol -Case management consulted for discharge planning back to [facility] -Due to low urine output and patient's difficulty urinating urinary straight catheter ordered as needed -Vital signs per protocol -CBC and CMP ordered 2. Acute on chronic kidney disease stage IV -Patient current creatinine double baseline, baseline 2.56 current value 5.63 -Likely secondary to infection and dehydration -Will consult Dr. Gutierrez who patient currently follows with -Daily CMP ordered, trend BUN and creatinine 3. Hyponatremia -Likely secondary to dehydration -Normal saline ordered 75 ml/hr due to concurrent CHF diagnosis -Daily CMP ordered, trend sodium 4. Hypokalemia -Potassium chloride 40 mEq p.o. x1 ordered -Trend potassium daily with CMP 5. Diabetes mellitus type 2 -Will continue home insulin regimen -AC at bedtime blood sugars with sliding scale insulin ordered 6. Hypertension -We will continue patient's home medication regimen -Vital signs currently stable. Vital signs per protocol, trend BP and heart rate 7. Heart failure with preserved ejection fraction -Currently stable, will continue home medication regimen -Daily weights -Strict intake and output 8. COPD -Patient chronically on oxygen will continue -As needed albuterol treatments ordered 9. Anemia -Currently stable, patient at baseline upon lab review 10. Body mass index 45.0-49.9, adult -Lifestyle modifications encouraged -Nutrition consulted DVT prophylaxis-Lovenox subcu This patient was seen by SHUN Aguilar under the supervision of Dr. [place].
[2021-03-30] MEDS: Ceftriaxone 1 GM/50 ML BAG IV (23:51)
[2021-03-30 23:55] VITALS: BP 159/67; PULSE 65; RESP 14; TEMP 36.7; O2SAT 98
[2021-03-30 23:56] LABS: Magnesium 3.1 mg/dL (1.6-2.6)
[2021-03-31] VITALS (20 sets, daily range): BP systolic 136–167; BP diastolic 51–66; PULSE 53–69; RESP 12–20; TEMP 36.3–36.9; O2SAT 92–99; BMI 43.9
[2021-03-31] MEDS: 0.9% Normal Saline 1,000 ML 75 ML IV ×2 (02:05→14:58)
[2021-03-31] MEDS: 0.9% Saline Lock 10 ML Syringe IV ×2 (02:06→05:35)
[2021-03-31] MEDS: Potassium Chloride Oral Tablet 20 MEQ 40 MEQ PO ×2 (02:06)
--- NOTE | 2021-03-31 02:23 | NURSING ---
Respiratory called for evaluation. Pt states that when he comes here he is placed on bipap. No current distress and his saturation is fine on a nasal cannula.
[2021-03-31] MEDS: hydrALAZINE 50 MG Tablet PO ×3 (05:19→21:34)
[2021-03-31] MEDS: cloNIDine HCl 0.1 MG Tablet 0.3 MG PO ×3 (05:19→21:34)
[2021-03-31 06:44] LABS: Absolute Neutrophil Count 5.7 X10^3/uL (2.0-7.7); Basophil# 0.01 X10^3/uL; Basophil% 0.1 % (0-1); Eosinophil# 0.19 X10^3/uL; Eosinophils% 2.8 % (0-5); Hematocrit 29.6 % (40-54); Hemoglobin 9.2 g/dL (13.0-16.5); Lymphocyte % 4.3 % (19-41); Mean Corp Hgb Conc 31.1 g/dL (32-36); Mean Corpuscular Hgb 28.8 pg (27.0-32.0); Mean Corpuscular Volume 92.8 fL (80-94); Mean Platelet Vol. 9.9 fl (6.2-12.0); Monocyte# 0.64 X10^3/uL; Monocyte% 9.3 % (0-10); NRBC Flagged by Analyzer 0 % (0-5); Neutrophil # 5.73 X10^3/uL (2.7-7.7); Neutrophil % 83.1 % (47-70); POSITIVE DIFFERENTIAL YES; Platelet Count 123 K/mm3 (150-450); RBC Distribution Width CV 16.2 % (11.6-14.6); RBC Distribution Width SD 55.8 fl (35.1-43.9); Red Blood Count 3.19 M/mm3 (4.6-6.2); White Blood Count 6.9 K/mm3 (4.4-11.0)
[2021-03-31 06:48] LABS: Differential Indicated SCAN CRITERIA MET
[2021-03-31 07:06] LABS: Bedside Glucose 144 mg/dL (70-110)
[2021-03-31] MEDS: Ipratropium/Albuterol Sulfate 3 ML AMPUL.NEB INHALATION ×3 (07:08→19:14)
[2021-03-31] MEDS: Metoclopramide 5 MG TABLET PO ×3 (07:33→17:14)
[2021-03-31] MEDS: Senna/Docusate Sodium 1 Tablet 2 TABLET PO (07:33)
[2021-03-31] MEDS: Potassium Chloride Oral Tablet 20 MEQ PO (07:33)
[2021-03-31] MEDS: Aspirin 81 MG TAB.CHEW PO (07:33)
[2021-03-31 07:34] LABS: ALB/GLOB Ratio 0.6 RATIO (0.9-2.4); AST(SGOT) 14 U/L (15-37); Alanine Aminotransfer ALT/SGPT 7 U/L (16-61); Albumin, Serum 2.3 g/dL (3.2-5.0); Alkaline Phosphatase 50 U/L (45-117); Anion Gap 7 (5-15); BUN 137 mg/dL (7-18); BUN/Creat Ratio 26.9 RATIO (10-20); Calcium,Total 7.7 mg/dL (8.5-10.1); Chloride 90 mmol/L (98-107); EST Glomerular Filtration Rate 12 mL/min (>60); Est Glom Filt Rate - Afr Amer 14 mL/min (>60); Estimated Creatinine Clearance 13.52 ml/min; Globulin 3.6 g/dL (2.2-4.2); Glucose 134 mg/dL (74-106); Potassium 3.7 mmol/L (3.5-5.1); Protein, Total 5.9 g/dL (6.4-8.2); Sodium Level 130 mmol/L (136-145)
[2021-03-31] MEDS: Polyethylene Glycol 3350 17 GM PACKET PO (07:34)
[2021-03-31] MEDS: Fluticasone 0.05% 1 SPRAY NASAL.SRY 2 SPRAY NASAL (07:36)
[2021-03-31] MEDS: Allopurinol 100 MG Tablet PO (07:36)
[2021-03-31] MEDS: Glucerna Shake 120 ML LIQUID PO (07:39)
--- NOTE | 2021-03-31 09:02 | CASEMGMT ---
Addendum entered by Aggie Barajas 03/31/21 10:05: SW faxed updated clinicals to [facility]. SW in to speak with pt. SW introduced self and role at [facility]. Pt is alert and orientated x3. Pt confirms he came from [facility] and plan is to return. SW offered list of SNF providers including quality and resource use data and consistent with the patient?s preferred geographic region, medical needs, and insurance network but pt denied list. Pt states I am already in a [facility]p. SW to continue to follow. Plan: Return to [facility] skilled when medically ready Addendum entered by Aggie Barajas 03/31/21 09:24: SW received call from Ninoska at [facility] stating pt is skilled, is able to return to skilled. SW to continue to follow. Original Note: Social Work Note Pt is listed as being from [facility]. SW placed a call to Ninoska at [facility] and left message regarding pt. 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
--- NOTE | 2021-03-31 09:08 | NURSING ---
skin photo: right leg
--- NOTE | 2021-03-31 09:09 | NURSING ---
skin photo: left leg
--- NOTE | 2021-03-31 09:09 | NURSING ---
wound photo: bilateral buttocks
--- NOTE | 2021-03-31 10:09 | PCM.CONS.R ---
Assessment & Plan Assessment/Plan (1) Acute kidney injury superimposed on CKD: PLAN: creatinine 5.1 baseline 2 to 3 from [facility]. AVF with thrill and bruit. Continue with hydration. Hold diuretics (2) Chronic kidney disease (CKD): QUALIFIERS: Chronic kidney disease stage: stage 4 (severe) Qualified Code(s): N18.4 - Chronic kidney disease, stage 4 (severe) PLAN: DUE TO DIABETES (3) UTI (urinary tract infection): QUALIFIERS: Hematuria presence: without hematuria Urinary tract infection type: site unspecified Qualified Code(s): N39.0 - Urinary tract infection, site not specified PLAN: iv antibx, await c/s (4) Anemia: PLAN: CHECK IRON (5) Diabetes mellitus, type II: QUALIFIERS: Diabetes mellitus shower attendant insulin use: with custodial use (6) IMAN (obstructive sleep apnea): (7) Body mass index 45.0-49.9, adult: PLAN: chronic leg edema (8) Debility: PLAN: DUE TO OBESITY, CKD. ECF PT HPI Consult Data Date of Consult: 04/02/21 HPI Narrative HPI Narrative: LAURA MURILLO, is a 70 M with CKD stage 4 due to diabetes. He presents from [facility] for complaints of confusion and UTI. He noticed discharge from penis with decreased urine output. He has dark evelin urine in pandya. He is on chronic diuretics for chronic lymphedema from pulmonary hypertension. Baseline creatinine in the mid 3's on diuretics with AVF slow to mature. He was suppose to have access revised but has not yet. Creatinine elevated at 5.1 BUN 137. Bumex recently decreased from 3mg twice a day to 1mg twice a day at his last office visit with me on 03/26 for creatinine elevation at 4.0 on 03/23/21. Denies nausea, vomiting, tremors. Appetite same. + SOB on chronic oxygen. Wheelchair bound, chronic weakness. Denied fever, chills, dysuria, hematuria. Currently receiving iv fluids, iv antibx. off diuretics. BP stable. [facility] Medical History (Updated 03/31/21 @ 11:[address] Vickie Gutierrez DO) Acute dyspnea DEVAN (acute kidney injury) Anxiety CKD (chronic kidney disease), stage III Congestive heart failure (CHF) COPD (chronic obstructive pulmonary disease) CPAP (continuous positive airway pressure) dependence Essential (primary) hypertension Former smoker Gastrointestinal bleed Hyperlipidemia Hypertension Lymphedema of both lower extremities Non-pressure ulcer of right lower extremity with fat layer exposed Right bundle branch block (RBBB) Secondary pulmonary arterial hypertension Syncope and collapse Traumatic open wound of right lower leg Traumatic open wound of right lower leg with delayed healing Type 2 diabetes mellitus Wound of right leg Home Medications aspirin 81 mg PO DAILY 03/03/15 [History Last Taken 01/09/21] fluticasone propionate 2 spray NASAL DAILY 12/31/15 [History Last Taken 01/09/21] allopurinol 100 mg PO DAILYCM 03/03/19 [History Last Taken 01/09/21] carvedilol 50 mg PO BID 03/03/19 [History Last Taken 01/09/21] cholecalciferol (vitamin D3) 1,000 unit PO SUWESA 03/03/19 [History Last Taken 01/07/21] hydralazine 50 mg PO TID 03/03/19 [History Last Taken 01/09/21] isosorbide mononitrate 120 mg PO DAILY 03/03/19 [History Last Taken 01/09/21] umeclidinium-vilanterol 1 puff IH DAILY 03/03/19 [History Last Taken 01/05/21] atorvastatin 80 mg tablet 80 mg PO QHS #90 tablet 04/04/19 [History Last Taken 01/08/21] albuterol sulfate 2 puff INHALATION Q6H PRN PRN 04/27/19 [History Last Taken 01/05/21] nitroglycerin 0.4 mg SL Q5M PRN 09/19/20 [History Last Taken Unknown] acetaminophen 1,000 mg PO Q6H PRN PRN tablet 12/10/20 [Rx Last Taken 01/08/21] ondansetron HCl 8 mg PO Q8H PRN PRN #90 tablet 12/10/20 [Rx Last Taken 01/06/21] menthol-zinc oxide 1 applic TOPICAL BID 12/25/20 [History Last Taken 01/09/21] sennosides-docusate sodium 2 tablet PO DAILY 12/25/20 [History Last Taken 01/09/21] tamsulosin 0.4 mg PO DAILY@1730 12/25/20 [History Last Taken 01/08/21] clonidine HCl 0.3 mg PO TID 01/09/21 [History Last Taken 01/09/21] insulin glargine 18 units SC QHS 01/09/21 [History Last Taken 01/08/21] insulin lispro See Protocol SC TID 01/09/21 [History Last Taken 01/09/21] bisacodyl 10 mg rectal suppository 10 mg RC DAILY PRN 01/14/21 [History Last Taken Unknown] bumetanide 1 mg tablet 3 mg PO BID 01/14/21 [History Last Taken Unknown] magnesium hydroxide 400 mg/5 mL oral suspension 30 ml PO DAILY PRN ml 01/14/21 [History Last Taken Unknown] mineral oil 118 ml RC DAILY PRN 01/14/21 [History Last Taken Unknown] polyethylene glycol 3350 17 gram/dose oral powder 17 gm PO BID 01/14/21 [History Last Taken Unknown] metoclopramide HCl [Reglan] 5 mg PO TIDCM 02/08/21 [History Last Taken Unknown] metolazone 2.5 mg PO DAILY 03/31/21 [History Last Taken Unknown] potassium chloride 20 meq PO DAILY 03/31/21 [History Last Taken Unknown] Allergy/AdvReac Type Severity Reaction Status Date / Time ARB-Angiotensin Receptor Allergy WORSENS Verified 03/30/21 21:16 Antagonist RENAL FUNCTION amoxicillin AdvReac Upset Verified 03/30/21 21:16 Stomach Family History Other Diabetes Heart disease Hypertension Surgical History (Updated 04/02/21 @ 11:[address] Vickie Gutierrez, DO) A-V fistula (05/09/20) History of cataract surgery Social History Smoking Status: Former smoker pack-years: 30 how long ago did patient quit smokin years ago alcohol intake: current details: Occasionally substance use type: marijuana caffeine: Yes Type: coffee and tea ROS Constitutional Constitutional: Denies chills or fever(s) Cardiovascular Cardiovascular: Denies chest pain Respiratory/Chest Respiratory/Chest: Reports portable oxygen @ home and other Details: chronic SOB Gastrointestinal Gastrointestinal: Denies abdominal pain, diarrhea, nausea or vomiting Genitourinary Genitourinary: Reports other Details: decreased urine output, discharge from penis ; Denies burning urination Musculoskeletal Musculoskeletal: Reports other Details: chronic weakness from obesity, lung disease, wheelchair bound Neurologic Neurologic: Reports confusion and other Details: gen weakness, chronic. ; Denies tremor(s) Hematologic/Lymphatic Hematologic/Lymphatic: Reports anemia Physical Exam Const alert, oriented x3 and no apparent distress HEENT normocephalic Eyes PERRL Resp Auscultation: diminished lung sounds Cardio regular rate, no murmurs and no rub GI non-tender and non-distended GI Narrative: morbidly obese Palpation: soft Narrative: urine dark, cloudy Bladder / Kidney Exam: catheter in place Back/Spine Back/Spine Narrative: gen weakness, chronic Extremity Extremity Narrative: chronic lymphedema BLE, AVF left forearm with thrill and bruit Neuro Motor Exam: no tremor Psych cooperative Lab / Micro Data Result Diagrams: 03/31/21 05:55 04/02/21 05:55 Labs: Laboratory Results - last 24 hr 03/30/21 03/30/21 03/30/21 21:15 21:15 21:15 WBC 6.1 RBC 3.19 L Hgb 9.3 L Hct 30.0 L MCV 94.0 MCH 29.2 MCHC 31.0 L RDW Std Deviation 55.6 H RDW Coeff of Gina 16.2 H Plt Count 127 L MPV 10.2 Immature Gran % (Auto) 0.500 Neut % (Auto) 83.9 H Lymph % (Auto) 3.9 L [place] % (Auto) 8.5 Eos % (Auto) 3.0 Baso % (Auto) 0.2 Absolute Neuts (auto) 5.1 Absolute Lymphs (auto) 0.24 L Nucleated RBC % 0 Differential Comment SEE COMMENT RBC Morphology N CHROM Hypochromasia 1+ Anisocytosis 1+ Macrocytosis RARE Sodium 130 L Potassium 3.2 L Chloride 89 L Carbon Dioxide 35.0 H Anion Gap 6 BUN 140 H* Creatinine 5.63 H Estim Creat Clear Calc 12.25 Est GFR (MDRD) Af Amer 13 L Est GFR (MDRD) Non-Af 11 L BUN/Creatinine Ratio 24.9 H Glucose 146 H Calcium 7.9 L Magnesium 3.1 H Total Bilirubin AST ALT Alkaline Phosphatase Total Protein Albumin Globulin Albumin/Globulin Ratio Urine Color Urine Clarity Urine pH Ur Specific [place] Urine Protein Urine Glucose (UA) Urine Ketones Urine Occult Blood Urine Nitrite Urine Bilirubin Urine Urobilinogen Ur Leukocyte Esterase Urine RBC Urine WBC Ur Squamous Epith Cells Amorphous Sediment Urine Bacteria Urine Mucus POC Glucose 03/30/21 03/31/21 03/31/21 23:20 05:55 05:55 WBC 6.9 RBC 3.19 L Hgb 9.2 L Hct 29.6 L MCV 92.8 MCH 28.8 MCHC 31.1 L RDW Std Deviation 55.8 H RDW Coeff of Gina 16.2 H Plt Count 123 L MPV 9.9 Immature Gran % (Auto) 0.400 Neut % (Auto) 83.1 H Lymph % (Auto) 4.3 L [place] % (Auto) 9.3 Eos % (Auto) 2.8 Baso % (Auto) 0.1 Absolute Neuts (auto) 5.7 Absolute Lymphs (auto) 0.30 L Nucleated RBC % 0 Differential Comment RBC Morphology Hypochromasia Anisocytosis Macrocytosis Sodium 130 L Potassium 3.7 Chloride 90 L Carbon Dioxide 33.0 H Anion Gap 7 BUN 137 H* Creatinine 5.10 H Estim Creat Clear Calc 13.52 Est GFR (MDRD) Af Amer 14 L Est GFR (MDRD) Non-Af 12 L BUN/Creatinine Ratio 26.9 H Glucose 134 H Calcium 7.7 L Magnesium Total Bilirubin 0.90 AST 14 L ALT 7 L Alkaline Phosphatase 50 Total Protein 5.9 L Albumin 2.3 L Globulin 3.6 Albumin/Globulin Ratio 0.6 L Urine Color Yellow Urine Clarity Cloudy Urine pH 6.0 Ur Specific [place] 1.015 Urine Protein 100 H Urine Glucose (UA) Normal Urine Ketones Negative Urine Occult Blood 25 H Urine Nitrite Positive H Urine Bilirubin Negative Urine Urobilinogen Normal Ur Leukocyte Esterase 500 H Urine RBC 0 SEEN Urine WBC >100 SEEN Ur Squamous Epith Cells 0 SEEN Amorphous Sediment 1+ Urine Bacteria 2+ Urine Mucus 0 SEEN POC Glucose 03/31/21 06:39 WBC RBC Hgb Hct MCV MCH MCHC RDW Std Deviation RDW Coeff of Gina Plt Count MPV Immature Gran % (Auto) Neut % (Auto) Lymph % (Auto) [place] % (Auto) Eos % (Auto) Baso % (Auto) Absolute Neuts (auto) Absolute Lymphs (auto) Nucleated RBC % Differential Comment RBC Morphology Hypochromasia Anisocytosis Macrocytosis Sodium Potassium Chloride Carbon Dioxide Anion Gap BUN Creatinine Estim Creat Clear Calc Est GFR (MDRD) Af Amer Est GFR (MDRD) Non-Af BUN/Creatinine Ratio Glucose Calcium Magnesium Total Bilirubin AST ALT Alkaline Phosphatase Total Protein Albumin Globulin Albumin/Globulin Ratio Urine Color Urine Clarity Urine pH Ur Specific [place] Urine Protein Urine Glucose (UA) Urine Ketones Urine Occult Blood Urine Nitrite Urine Bilirubin Urine Urobilinogen Ur Leukocyte Esterase Urine RBC Urine WBC Ur Squamous Epith Cells Amorphous Sediment Urine Bacteria Urine Mucus POC Glucose 144 H Radiology Impression Chest X-Ray 03/30/21 22:50 IMPRESSION: Cardiomegaly with interstitial edema and small right/trace left pleural effusions. Electronically Signed: Max Kumar MD at 23:39 EDT Tel , Service support ,
--- NOTE | 2021-03-31 10:47 | CASEMGMT ---
Social Work Note Per physical design engineer questions, pt has completed HCPOA and LW and provided documents to [facility]. SW reviewed chart. Pt's HCPOA and LW are on file. SW printed off documents and placed on pt's chart. Aggie Barajas DERRICK HELPER, CORPORATE SECURITY OFFICER
[2021-03-31] MEDS: Enoxaparin 30 MG/0.3 ML Syringe SC (11:44)
[2021-03-31] MEDS: Insulin Lispro 100 UNIT/ML INSULN.PEN SC ×2 (11:51→17:13)
[2021-03-31 12:36] LABS: Bedside Glucose 177 mg/dL (70-110)
--- NOTE | 2021-03-31 15:02 | PN.HOSP_ITS ---
Subjective Subjective Patient was seen and examined today, his renal functions are marginally improved over yesterday, nephrology saw the patient and recommends continue with IV fluids and monitoring labs. Objective Data Objective Data Vital Signs: Vital Signs Temp Pulse Resp BP Pulse Ox 97.8 F 63 16 136/51 H 96 03/31/21 07:28 03/31/21 15:00 03/31/21 13:17 03/31/21 07:28 03/31/21 07:28 Oxygen Flow Rate (L/min) 4 Oxygen Delivery Method Nasal Cannula Weight: 141 kg Body Mass Index (BMI) 43.9 Intake & Output: Intake and Output for Last 24 Hours 03/29/21 03/30/21 03/31/21 23:59 23:59 23:59 Intake Total 250 / 250 1816.25 / 1816.25 Output Total 0 / 0 900 / 900 Balance 250 / 250 916.25 / 916.25 Lab / Micro Data Result Diagrams: 03/31/21 05:55 03/31/21 05:55 Labs: Laboratory Results - last 24 hr 03/30/21 03/30/21 03/30/21 21:15 21:15 21:15 WBC 6.1 RBC 3.19 L Hgb 9.3 L Hct 30.0 L MCV 94.0 MCH 29.2 MCHC 31.0 L RDW Std Deviation 55.6 H RDW Coeff of Gina 16.2 H Plt Count 127 L MPV 10.2 Immature Gran % (Auto) 0.500 Neut % (Auto) 83.9 H Lymph % (Auto) 3.9 L [place] % (Auto) 8.5 Eos % (Auto) 3.0 Baso % (Auto) 0.2 Absolute Neuts (auto) 5.1 Absolute Lymphs (auto) 0.24 L Nucleated RBC % 0 Differential Comment SEE COMMENT RBC Morphology N CHROM Hypochromasia 1+ Anisocytosis 1+ Macrocytosis RARE Sodium 130 L Potassium 3.2 L Chloride 89 L Carbon Dioxide 35.0 H Anion Gap 6 BUN 140 H* Creatinine 5.63 H Estim Creat Clear Calc 12.25 Est GFR (MDRD) Af Amer 13 L Est GFR (MDRD) Non-Af 11 L BUN/Creatinine Ratio 24.9 H Glucose 146 H Calcium 7.9 L Magnesium 3.1 H Total Bilirubin AST ALT Alkaline Phosphatase Total Protein Albumin Globulin Albumin/Globulin Ratio Urine Color Urine Clarity Urine pH Ur Specific [place] Urine Protein Urine Glucose (UA) Urine Ketones Urine Occult Blood Urine Nitrite Urine Bilirubin Urine Urobilinogen Ur Leukocyte Esterase Urine RBC Urine WBC Ur Squamous Epith Cells Amorphous Sediment Urine Bacteria Urine Mucus POC Glucose 03/30/21 03/31/21 03/31/21 23:20 05:55 05:55 WBC 6.9 RBC 3.19 L Hgb 9.2 L Hct 29.6 L MCV 92.8 MCH 28.8 MCHC 31.1 L RDW Std Deviation 55.8 H RDW Coeff of Gina 16.2 H Plt Count 123 L MPV 9.9 Immature Gran % (Auto) 0.400 Neut % (Auto) 83.1 H Lymph % (Auto) 4.3 L [place] % (Auto) 9.3 Eos % (Auto) 2.8 Baso % (Auto) 0.1 Absolute Neuts (auto) 5.7 Absolute Lymphs (auto) 0.30 L Nucleated RBC % 0 Differential Comment RBC Morphology Hypochromasia Anisocytosis Macrocytosis Sodium 130 L Potassium 3.7 Chloride 90 L Carbon Dioxide 33.0 H Anion Gap 7 BUN 137 H* Creatinine 5.10 H Estim Creat Clear Calc 13.52 Est GFR (MDRD) Af Amer 14 L Est GFR (MDRD) Non-Af 12 L BUN/Creatinine Ratio 26.9 H Glucose 134 H Calcium 7.7 L Magnesium Total Bilirubin 0.90 AST 14 L ALT 7 L Alkaline Phosphatase 50 Total Protein 5.9 L Albumin 2.3 L Globulin 3.6 Albumin/Globulin Ratio 0.6 L Urine Color Yellow Urine Clarity Cloudy Urine pH 6.0 Ur Specific [place] 1.015 Urine Protein 100 H Urine Glucose (UA) Normal Urine Ketones Negative Urine Occult Blood 25 H Urine Nitrite Positive H Urine Bilirubin Negative Urine Urobilinogen Normal Ur Leukocyte Esterase 500 H Urine RBC 0 SEEN Urine WBC >100 SEEN Ur Squamous Epith Cells 0 SEEN Amorphous Sediment 1+ Urine Bacteria 2+ Urine Mucus 0 SEEN POC Glucose 03/31/21 03/31/21 06:39 11:42 WBC RBC Hgb Hct MCV MCH MCHC RDW Std Deviation RDW Coeff of Gina Plt Count MPV Immature Gran % (Auto) Neut % (Auto) Lymph % (Auto) [place] % (Auto) Eos % (Auto) Baso % (Auto) Absolute Neuts (auto) Absolute Lymphs (auto) Nucleated RBC % Differential Comment RBC Morphology Hypochromasia Anisocytosis Macrocytosis Sodium Potassium Chloride Carbon Dioxide Anion Gap BUN Creatinine Estim Creat Clear Calc Est GFR (MDRD) Af Amer Est GFR (MDRD) Non-Af BUN/Creatinine Ratio Glucose Calcium Magnesium Total Bilirubin AST ALT Alkaline Phosphatase Total Protein Albumin Globulin Albumin/Globulin Ratio Urine Color Urine Clarity Urine pH Ur Specific [place] Urine Protein Urine Glucose (UA) Urine Ketones Urine Occult Blood Urine Nitrite Urine Bilirubin Urine Urobilinogen Ur Leukocyte Esterase Urine RBC Urine WBC Ur Squamous Epith Cells Amorphous Sediment Urine Bacteria Urine Mucus POC Glucose 144 H 177 H Radiography Diagnostic Testing: Radiology Impression Chest X-Ray 03/30/21 22:50 IMPRESSION: Cardiomegaly with interstitial edema and small right/trace left pleural effusions. Electronically Signed: Max Kumar MD at 23:39 EDT Tel , Service support , Physical Exam Const alert, oriented x3 and no apparent distress General Appearance: cooperative, well kempt and well developed Orientation / Consciousness: awake, oriented to person, oriented to place and oriented to time HEENT normocephalic, head/scalp atraumatic and moist oral mucous membranes Head and Scalp: normocephalic Eyes PERRL, EOMs intact bilaterally and conjunctivae normal Neck nuchal rigidity, supple, no JVD, thyroid normal and no carotid bruits General: trachea midline Resp normal respiratory effort, no retractions, no use of accessory muscles and clear to auscultation bilaterally Auscultation: Negative for rales, rhonchi or wheezes Cardio regular rate, regular rhythm, S1 normal heart sound, S2 normal heart sound, no murmurs, no rub and no gallops GI normal to inspection, nondistended, normoactive bowel sounds, soft to palpation, non-tender and non-distended Extremity normal to inspection and no clubbing, cyanosis or edema Skin no rashes or lesions noted General Skin Exam: no breakdown Neuro oriented x3 and CN's II-XII intact bilaterally Sensorium / Orientation: awake and alert Speech: speech normal Psych thought process normal and affect normal Assessment & Plan Assessment/Plan (1) Acute kidney injury superimposed on CKD: PLAN: 1. Acute kidney injury superimposed on chronic kidney disease stage IV-continue IV fluids, nephrology is participating in his care #2 chronic hypoxic respiratory failure secondary to chronic diastolic congestive heart failure #3 chronic kidney disease stage IV #5 type 2 diabetes #6 essential hypertension #7 urinary tract infection-continue ceftriaxone, await urine culture results #8 hypokalemia #9 chronic obstructive pulmonary disease #10 pulmonary hypertension #11 morbid obesity #12 obstructive sleep apnea #13 anemia of chronic renal disease #14 hyponatremia Charges/Coding Visit Charges Inpatient E&M: 81215 Subs Hosp L2
[2021-03-31] MEDS: Ondansetron 8 MG Tablet PO (15:11)
[2021-03-31] MEDS: Tamsulosin HCl 0.4 MG Capsule PO (17:14)
[2021-03-31 18:16] LABS: Bedside Glucose 155 mg/dL (70-110)
[2021-03-31] MEDS: Atorvastatin Calcium 80 MG Tablet PO (21:34)
[2021-03-31] MEDS: Menthol/Lanolin/Calamine/Znox 113 GM Tube 1 APPLIC TOPICAL (21:35)
[2021-03-31] MEDS: Ceftriaxone 1 GM/50 ML BAG IV (21:36)
[2021-03-31 22:16] LABS: Bedside Glucose 139 mg/dL (70-110)
[2021-04-01] VITALS (22 sets, daily range): BP systolic 135–157; BP diastolic 54–90; PULSE 58–70; RESP 12–22; TEMP 36.2–36.6; O2SAT 96–100
[2021-04-01] MEDS: 0.9% Normal Saline 1,000 ML 75 ML IV (04:33)
[2021-04-01] MEDS: cloNIDine HCl 0.1 MG Tablet 0.3 MG PO ×3 (06:34→21:43)
[2021-04-01] MEDS: hydrALAZINE 50 MG Tablet PO ×3 (06:36→21:43)
[2021-04-01 06:51] LABS: Bedside Glucose 89 mg/dL (70-110)
[2021-04-01] MEDS: Ipratropium/Albuterol Sulfate 3 ML AMPUL.NEB INHALATION ×3 (07:11→19:21)
[2021-04-01] MEDS: Aspirin 81 MG TAB.CHEW PO (07:41)
[2021-04-01] MEDS: Carvedilol 25 MG Tablet 50 MG PO ×2 (07:41→16:42)
[2021-04-01] MEDS: Potassium Chloride Oral Tablet 20 MEQ PO (07:41)
[2021-04-01] MEDS: Metoclopramide 5 MG TABLET PO ×3 (07:42→16:42)
[2021-04-01] MEDS: Allopurinol 100 MG Tablet PO (07:42)
[2021-04-01] MEDS: Fluticasone 0.05% 1 SPRAY NASAL.SRY 2 SPRAY NASAL (07:42)
[2021-04-01] MEDS: Cholecalciferol (VIT D3) 25 MCG TABLET (1,000 UNITS) PO (07:44)
[2021-04-01] MEDS: Polyethylene Glycol 3350 17 GM PACKET PO (07:44)
[2021-04-01] MEDS: Senna/Docusate Sodium 1 Tablet 2 TABLET PO (07:44)
[2021-04-01] MEDS: Enoxaparin 30 MG/0.3 ML Syringe SC (07:44)
[2021-04-01] MEDS: Menthol/Lanolin/Calamine/Znox 113 GM Tube 1 APPLIC TOPICAL ×2 (07:48→21:49)
[2021-04-01] MEDS: Glucerna Shake 120 ML LIQUID PO ×3 (07:49→16:43)
--- NOTE | 2021-04-01 08:52 | PCM.PN.REN ---
Subjective Subjective breathing better, appetite good. No SOB, Nausea or vomiting. Creatinine improving with iv fluids. Objective Data Objective Data Vital Signs: Vital Signs Temp Pulse Resp BP Pulse Ox 97.1 F L 59 L 18 139/54 H 98 04/01/21 08:13 04/01/21 08:13 04/01/21 08:13 04/01/21 08:13 04/01/21 08:13 Oxygen Flow Rate (L/min) 4 Oxygen Delivery Method Nasal Cannula Weight: 140.84 kg Body Mass Index (BMI) 43.9 Intake & Output: Intake and Output for Last 24 Hours 03/30/21 03/31/21 04/01/21 23:59 23:59 23:59 Intake Total 250 / 250 2690.00 / 2690.00 476.25 / 476.25 Output Total 0 / 0 1175 / 1475 800 / 800 Balance 250 / 250 1515.00 / 1215.00 -323.75 / -323.75 Lab / Micro Data Result Diagrams: 03/31/21 05:55 04/02/21 05:55 Labs: Laboratory Results - last 24 hr 03/31/21 03/31/21 03/31/21 11:42 17:12 21:30 POC Glucose 177 H 155 H 139 H 04/01/21 06:30 POC Glucose 89 Physical Exam Const alert, oriented x3 and no apparent distress Resp Auscultation: diminished lung sounds Cardio regular rate GI non-tender and non-distended GI Narrative: morbidly obese Palpation: soft Narrative: urine clear yellow Bladder / Kidney Exam: catheter in place urethral Extremity General Extremity: edema bilateral (chronic) Psych cooperative Assessment & Plan Assessment/Plan (1) Acute kidney injury superimposed on CKD: PLAN: creatinine 5.1 baseline 2 to 3 from [facility]. AVF with thrill and bruit. Continue with hydration. Hold diuretics. Creatinine improved (2) Chronic kidney disease (CKD): QUALIFIERS: Chronic kidney disease stage: stage 4 (severe) Qualified Code(s): N18.4 - Chronic kidney disease, stage 4 (severe) PLAN: DUE TO DIABETES (3) UTI (urinary tract infection): QUALIFIERS: Hematuria presence: without hematuria Urinary tract infection type: site unspecified Qualified Code(s): N39.0 - Urinary tract infection, site not specified PLAN: iv antibx, await c/s (4) Anemia: PLAN: CHECK IRON (5) Diabetes mellitus, type II: QUALIFIERS: Diabetes mellitus director long term care insulin use: with director long term care use (6) IMAN (obstructive sleep apnea): (7) Body mass index 45.0-49.9, adult: PLAN: chronic leg edema (8) Debility: PLAN: DUE TO OBESITY, CKD. ECF PT
[2021-04-01 09:25] LABS: Anion Gap 9 (5-15); BUN 133 mg/dL (7-18); BUN/Creat Ratio 28.6 RATIO (10-20); Calcium,Total 7.9 mg/dL (8.5-10.1); Chloride 92 mmol/L (98-107); Creatinine, Serum 4.65 mg/dL (0.70-1.30); EST Glomerular Filtration Rate 13 mL/min (>60); Est Glom Filt Rate - Afr Amer 16 mL/min (>60); Estimated Creatinine Clearance 14.83 ml/min; Glucose 120 mg/dL (74-106); Potassium 3.7 mmol/L (3.5-5.1); Sodium Level 132 mmol/L (136-145)
[2021-04-01 11:10] LABS: Bedside Glucose 137 mg/dL (70-110)
--- NOTE | 2021-04-01 12:35 | CASEMGMT ---
Social Work Note Pt is not medically ready for discharge today. TRACY placed a call to Ninoska at [facility] and provided update. Ninoska confirms pt will need COVID test on day of discharge. TRACY faxed updated clinicals to [facility]. Plan: Return to [facility] once medically cleared Aggie Barajas ADMISSIONS CLINICIAN, RING BARKER OPERATOR
[2021-04-01] MEDS: 0.9% Normal Saline 1,000 ML 100 ML IV (14:59)
--- NOTE | 2021-04-01 15:03 | CASEMGMT ---
TC to [facility] to make aware that pt is currently hospitalized. Left message on voicemail.
--- NOTE | 2021-04-01 16:23 | PCM.PN.HOSP ---
Subjective Subjective Patient was seen and examined today, his renal functions have improved with administration of IV fluids, I talked with nephrology about his care today. Objective Data Objective Data Vital Signs: Vital Signs Temp Pulse Resp BP Pulse Ox 97.5 F L 65 16 135/63 H 100 04/01/21 15:11 04/01/21 15:30 04/01/21 15:11 04/01/21 15:11 04/01/21 15:11 Oxygen Flow Rate (L/min) 4 Oxygen Delivery Method Nasal Cannula Weight: 140.84 kg Body Mass Index (BMI) 43.9 Intake & Output: Intake and Output for Last 24 Hours 03/30/21 03/31/21 04/01/21 23:59 23:59 23:59 Intake Total 250 / 250 2690.00 / 2690.00 1755.00 / 1755.00 Output Total 0 / 0 1175 / 1475 950 / 950 Balance 250 / 250 1515.00 / 1215.00 805.00 / 805.00 Lab / Micro Data Result Diagrams: 03/31/21 05:55 04/01/21 08:50 Labs: Laboratory Results - last 24 hr 03/31/21 03/31/21 04/01/21 17:12 21:30 06:30 Sodium Potassium Chloride Carbon Dioxide Anion Gap BUN Creatinine Estim Creat Clear Calc Est GFR (MDRD) Af Amer Est GFR (MDRD) Non-Af BUN/Creatinine Ratio Glucose Calcium POC Glucose 155 H 139 H 89 04/01/21 04/01/21 08:50 10:59 Sodium 132 L Potassium 3.7 Chloride 92 L Carbon Dioxide 31.0 Anion Gap 9 BUN 133 H* Creatinine 4.65 H Estim Creat Clear Calc 14.83 Est GFR (MDRD) Af Amer 16 L Est GFR (MDRD) Non-Af 13 L BUN/Creatinine Ratio 28.6 H Glucose 120 H Calcium 7.9 L POC Glucose 137 H Micro: Microbiology 03/30/21 23:20 Urine Catheter - Catheter Urine Culture - Preliminary Presumptive E. coli Physical Exam Const alert, oriented x3 and no apparent distress General Appearance: cooperative, well kempt and well developed Orientation / Consciousness: awake, oriented to person, oriented to place and oriented to time Nutritional Appearance: overweight HEENT normocephalic, head/scalp atraumatic and moist oral mucous membranes Head and Scalp: normocephalic Eyes PERRL, EOMs intact bilaterally and conjunctivae normal Neck nuchal rigidity, supple, no JVD, thyroid normal and no carotid bruits General: trachea midline Resp normal respiratory effort, no retractions, no use of accessory muscles and clear to auscultation bilaterally Auscultation: Negative for rales, rhonchi or wheezes Cardio regular rate, regular rhythm, S1 normal heart sound, S2 normal heart sound, no murmurs, no rub and no gallops GI normal to inspection, nondistended, normoactive bowel sounds, soft to palpation, non-tender and non-distended Extremity no clubbing, cyanosis or edema General Extremity: no tenderness to palpation of joints or extremities Skin no rashes or lesions noted General Skin Exam: no breakdown Lesions: no lesions Rashes: no rashes Neuro oriented x3, CN's II-XII intact bilaterally, no focal motor deficits and no sensory deficits noted Sensorium / Orientation: awake and alert Speech: speech normal Motor Exam: general weakness Psych thought process normal and affect normal Appearance: appropriate Assessment & Plan Assessment/Plan (1) Acute kidney injury superimposed on CKD: PLAN: 1. Acute kidney injury superimposed on chronic kidney disease stage IV-continue IV fluids, nephrology is participating in his care #2 chronic hypoxic respiratory failure secondary to chronic diastolic congestive heart failure #3 chronic kidney disease stage IV #5 type 2 diabetes #6 essential hypertension #7 urinary tract infection-continue ceftriaxone, urine culture grew out presumptive E. coli, sensitivity to follow #8 hypokalemia #9 chronic obstructive pulmonary disease #10 pulmonary hypertension #11 morbid obesity #12 obstructive sleep apnea #13 anemia of chronic renal disease #14 hyponatremia #15 chronic debility Charges/Coding Visit Charges Inpatient E&M: 54155 Subs Hosp L2
[2021-04-01] MEDS: Insulin Lispro 100 UNIT/ML INSULN.PEN SC ×2 (16:40→21:43)
[2021-04-01] MEDS: Tamsulosin HCl 0.4 MG Capsule PO (16:43)
[2021-04-01 17:06] LABS: Bedside Glucose 157 mg/dL (70-110)
[2021-04-01] MEDS: Ceftriaxone 1 GM/50 ML BAG IV (21:42)
[2021-04-01] MEDS: Atorvastatin Calcium 80 MG Tablet PO (21:44)
[2021-04-01 22:10] LABS: Bedside Glucose 159 mg/dL (70-110)
[2021-04-02] VITALS (18 sets, daily range): BP systolic 109–152; BP diastolic 32–73; PULSE 60–75; RESP 12–20; TEMP 36.4–36.6; O2SAT 89–100
[2021-04-02] MEDS: 0.9% Normal Saline 1,000 ML 100 ML IV ×2 (02:24→14:43)
[2021-04-02] MEDS: cloNIDine HCl 0.1 MG Tablet 0.3 MG PO ×3 (05:31→21:59)
[2021-04-02] MEDS: hydrALAZINE 50 MG Tablet PO ×3 (05:31→21:58)
[2021-04-02] MEDS: Insulin Lispro 100 UNIT/ML INSULN.PEN SC ×4 (06:33→22:01)
[2021-04-02 06:45] LABS: Bedside Glucose 183 mg/dL (70-110)
[2021-04-02] MEDS: Ipratropium/Albuterol Sulfate 3 ML AMPUL.NEB INHALATION ×3 (07:21→19:18)
[2021-04-02 07:39] LABS: Albumin, Serum 2.1 g/dL (3.2-5.0); BUN 124 mg/dL (7-18); BUN/Creat Ratio 28.7 RATIO (10-20); Calcium,Total 7.7 mg/dL (8.5-10.1); Chloride 96 mmol/L (98-107); Creatinine, Serum 4.32 mg/dL (0.70-1.30); EST Glomerular Filtration Rate 14 mL/min (>60); Est Glom Filt Rate - Afr Amer 17 mL/min (>60); Estimated Creatinine Clearance 15.96 ml/min; Ferritin 186 ng/mL (26-388); Glucose 156 mg/dL (74-106); Iron 32 ug/dL (65-175); Iron Binding Capacity,Total 140 ug/dL (250-450); PERCENT IRON SATURATION 22.9 % (15.0-55.0); Phosphorus 4.4 mg/dL (2.5-4.9); Potassium 3.6 mmol/L (3.5-5.1); Sodium Level 131 mmol/L (136-145)
[2021-04-02] MEDS: Allopurinol 100 MG Tablet PO (07:49)
[2021-04-02] MEDS: Potassium Chloride Oral Tablet 20 MEQ PO (07:49)
[2021-04-02] MEDS: Metoclopramide 5 MG TABLET PO ×3 (07:49→17:08)
[2021-04-02] MEDS: Aspirin 81 MG TAB.CHEW PO (07:50)
[2021-04-02] MEDS: Carvedilol 25 MG Tablet 50 MG PO ×2 (07:50→17:08)
[2021-04-02] MEDS: Fluticasone 0.05% 1 SPRAY NASAL.SRY 2 SPRAY NASAL (07:50)
[2021-04-02] MEDS: Menthol/Lanolin/Calamine/Znox 113 GM Tube 1 APPLIC TOPICAL ×2 (07:51→21:58)
[2021-04-02] MEDS: Senna/Docusate Sodium 1 Tablet 2 TABLET PO (07:51)
[2021-04-02] MEDS: Enoxaparin 30 MG/0.3 ML Syringe SC (07:55)
--- NOTE | 2021-04-02 08:45 | PN.RENAL_ITS ---
Subjective Subjective clinically unchanged. Appetite good. No nausea, vomiting. Chronic lymphedema. Objective Data Objective Data Vital Signs: Vital Signs Temp Pulse Resp BP Pulse Ox 98 F 63 20 H 139/55 H 97 04/02/21 02:20 04/02/21 07:21 04/02/21 07:21 04/02/21 02:20 04/02/21 07:21 Oxygen Flow Rate (L/min) 4 Oxygen Delivery Method Nasal Cannula Weight: 145.4 kg Body Mass Index (BMI) 43.9 Intake & Output: Intake and Output for Last 24 Hours 03/31/21 04/01/21 04/02/21 23:59 23:59 23:59 Intake Total 2690.00 / 2690.00 2486.67 / 2486.67 318.33 / 318.33 Output Total 1175 / 1475 1300 / 1600 600 / 600 Balance 1515.00 / 1215.00 1186.67 / 886.67 -281.67 / -281.67 Lab / Micro Data Result Diagrams: 03/31/21 05:55 04/02/21 05:55 Labs: Laboratory Results - last 24 hr 04/01/21 04/01/21 04/01/21 08:50 10:59 16:36 Sodium 132 L Potassium 3.7 Chloride 92 L Carbon Dioxide 31.0 Anion Gap 9 BUN 133 H* Creatinine 4.65 H Estim Creat Clear Calc 14.83 Est GFR (MDRD) Af Amer 16 L Est GFR (MDRD) Non-Af 13 L BUN/Creatinine Ratio 28.6 H Glucose 120 H Calcium 7.9 L Phosphorus Iron TIBC Iron Saturation Ferritin Albumin POC Glucose 137 H 157 H 04/01/21 04/02/21 04/02/21 21:41 05:55 06:31 Sodium 131 L Potassium 3.6 Chloride 96 L Carbon Dioxide 30.0 Anion Gap BUN 124 H* Creatinine 4.32 H Estim Creat Clear Calc 15.96 Est GFR (MDRD) Af Amer 17 L Est GFR (MDRD) Non-Af 14 L BUN/Creatinine Ratio 28.7 H Glucose 156 H Calcium 7.7 L Phosphorus 4.4 Iron 32 L TIBC 140 L Iron Saturation 22.9 Ferritin 186 Albumin 2.1 L POC Glucose 159 H 183 H Micro: Microbiology 03/30/21 23:20 Urine Catheter - Catheter Urine Culture - Final Presumptive E. coli Physical Exam Const alert, oriented x3 and no apparent distress HEENT normocephalic Eyes PERRL Resp Auscultation: diminished lung sounds Cardio regular rate, no murmurs and no rub GI non-tender and non-distended GI Narrative: morbidly obese Palpation: soft Narrative: urine clear Bladder / Kidney Exam: catheter in place urethral Back/Spine Back/Spine Narrative: gen weakness, chronic Extremity Extremity Narrative: chronic lymphedema BLE, AVF left forearm with thrill and bruit General Extremity: edema bilateral (chronic) Neuro Motor Exam: no tremor Psych cooperative Assessment & Plan Assessment/Plan (1) Acute kidney injury superimposed on CKD: PLAN: creatinine 5.1 baseline 2 to 3 from DMN. AVF with thrill and bruit. Continue with hydration. Hold diuretics. Creatinine improved to 4.32 today. No urgent indication for dialysis. Would continue to hold diuretics for now and on discharge until f/u in office with me in 1-2 wks with labs. DW hospitalist (2) Chronic kidney disease (CKD): QUALIFIERS: Chronic kidney disease stage: stage 4 (severe) Qualified Code(s): N18.4 - Chronic kidney disease, stage 4 (severe) PLAN: DUE TO DIABETES (3) UTI (urinary tract infection): QUALIFIERS: Hematuria presence: without hematuria Urinary tract infection type: site unspecified Qualified Code(s): N39.0 - Urinary tract infection, site not specified PLAN: Ecoli UTI on antibx. Switch to oral antibx. Defer to primary service (4) Anemia: PLAN: hgb 9.2g on 03/31. Iron low at 42 ferritin 186. iv iron today (5) Diabetes mellitus, type II: QUALIFIERS: Diabetes mellitus group home insulin use: with hemmer chainstitch use (6) IMAN (obstructive sleep apnea): (7) Body mass index 45.0-49.9, adult: PLAN: chronic leg edema (8) Debility: PLAN: ECF PT (9) Hyponatremia: PLAN: sodium improved to 131 with NSS
[2021-04-02 11:11] LABS: Bedside Glucose 174 mg/dL (70-110)
--- NOTE | 2021-04-02 13:03 | CASEMGMT ---
Addendum entered by Aggie Barajas 04/03/21 13:56: TRACY faxed completed discharge paperwork to [facility] including transfer to extended care facility, signed medication list, any scripts, COVID test and COVID tool. Original in SNF Folder and copy on pt's chart. TRACY spoke with RN, pt can transport via cot. SW accessed trip assist and arranged transportation via cot for 1:30pm. Transportation form completed and placed on SNF Folder and copy on pt's chart. TRACY updated RN on transportation time. SW updated pt on discharge and transportation. Pt gave this worker permission to call his sister to update her on discharge. TRACY placed call to pt's sister Rhiannon and updated her on discharge and transportation time to [facility]. Rhiannon states understanding. TRACY placed a call to Ninoska at [facility] and updated her on transportation time. Plan: Return to [facility] skilled today with Physician's transporting pt via cot at 1:30pm BRYAN Longo Original Note: Social Work Note Pt is not medically cleared for discharge today. TRACY placed a call to Ninoska at [facility] and updated her. TRACY faxed updated clinicals to [facility]. Plan: Return to [facility] once medically cleared BRYAN Longo
--- NOTE | 2021-04-02 16:42 | PCM.PN.HOSP ---
Subjective Subjective Patient was seen and examined today, his renal functions have improved, talked briefly with nephrology felt that the patient should continue on IV fluids for now and his labs should be rechecked tomorrow. Objective Data Objective Data Vital Signs: Vital Signs Temp Pulse Resp BP Pulse Ox 97.6 F L 75 18 109/73 100 04/02/21 14:20 04/02/21 14:43 04/02/21 14:20 04/02/21 14:20 04/02/21 14:20 Oxygen Flow Rate (L/min) 4 Oxygen Delivery Method Nasal Cannula Weight: 145.4 kg Body Mass Index (BMI) 43.9 Intake & Output: Intake and Output for Last 24 Hours 03/31/21 04/01/21 04/02/21 23:59 23:59 23:59 Intake Total 2690.00 / 2690.00 2486.67 / 2486.67 2068.33 / 2068.33 Output Total 1175 / 1475 1300 / 1600 600 / 600 Balance 1515.00 / 1215.00 1186.67 / 886.67 1468.33 / 1468.33 Lab / Micro Data Result Diagrams: 03/31/21 05:55 04/02/21 05:55 Labs: Laboratory Results - last 24 hr 04/01/21 04/01/21 04/02/21 16:36 21:41 05:55 Sodium 131 L Potassium 3.6 Chloride 96 L Carbon Dioxide 30.0 BUN 124 H* Creatinine 4.32 H Estim Creat Clear Calc 15.96 Est GFR (MDRD) Af Amer 17 L Est GFR (MDRD) Non-Af 14 L BUN/Creatinine Ratio 28.7 H Glucose 156 H Calcium 7.7 L Phosphorus 4.4 Iron 32 L TIBC 140 L Iron Saturation 22.9 Ferritin 186 Albumin 2.1 L POC Glucose 157 H 159 H 04/02/21 04/02/21 06:31 11:07 Sodium Potassium Chloride Carbon Dioxide BUN Creatinine Estim Creat Clear Calc Est GFR (MDRD) Af Amer Est GFR (MDRD) Non-Af BUN/Creatinine Ratio Glucose Calcium Phosphorus Iron TIBC Iron Saturation Ferritin Albumin POC Glucose 183 H 174 H Micro: Microbiology 03/30/21 23:20 Urine Catheter - Catheter Urine Culture - Final Presumptive E. coli Physical Exam Const alert, oriented x3, no apparent distress and healthy appearing Constitutional Narrative: Patient is morbidly obese General Appearance: cooperative, well kempt and well developed Orientation / Consciousness: awake, oriented to person, oriented to place and oriented to time HEENT normocephalic, head/scalp atraumatic and moist oral mucous membranes Head and Scalp: normocephalic Eyes PERRL, EOMs intact bilaterally and conjunctivae normal Neck nuchal rigidity, supple, no JVD, thyroid normal and no carotid bruits General: trachea midline Resp normal respiratory effort, no retractions, no use of accessory muscles and clear to auscultation bilaterally Auscultation: Negative for rales, rhonchi or wheezes Cardio regular rate, regular rhythm, S1 normal heart sound, S2 normal heart sound, no murmurs, no rub and no gallops GI normal to inspection, nondistended, normoactive bowel sounds, soft to palpation, non-tender and non-distended Extremity normal to inspection and no clubbing, cyanosis or edema Skin no rashes or lesions noted General Skin Exam: no breakdown Neuro oriented x3, CN's II-XII intact bilaterally, no focal motor deficits and no sensory deficits noted Sensorium / Orientation: awake and alert Speech: speech normal Psych thought process normal and affect normal Assessment & Plan Assessment/Plan (1) Acute kidney injury superimposed on CKD: PLAN: PLAN: 1. Acute kidney injury superimposed on CKD stage IV-continue administration of IV fluids and recheck labs, nephrology is participating in his care #2 chronic hypoxic respiratory failure secondary to chronic diastolic congestive heart failure #3 chronic kidney disease stage IV #5 type 2 diabetes #6 essential hypertension #7 urinary tract infection-continue ceftriaxone, urine culture grew out presumptive E. coli, sensitivity to follow #8 hypokalemia #9 chronic obstructive pulmonary disease #10 pulmonary hypertension #11 morbid obesity #12 obstructive sleep apnea #13 anemia of chronic renal disease #14 hyponatremia #15 chronic debility Charges/Coding Visit Charges Inpatient E&M: 91425 Subs Hosp L2
[2021-04-02] MEDS: Tamsulosin HCl 0.4 MG Capsule PO (17:08)
[2021-04-02 17:15] LABS: Bedside Glucose 212 mg/dL (70-110)
[2021-04-02] MEDS: Ceftriaxone 1 GM/50 ML BAG IV (22:02)
[2021-04-02] MEDS: Atorvastatin Calcium 80 MG Tablet PO (22:02)
[2021-04-02 22:21] LABS: Bedside Glucose 199 mg/dL (70-110)
[2021-04-03] VITALS (7 sets, daily range): BP systolic 137–146; BP diastolic 42–57; PULSE 59–81; RESP 12–20; TEMP 36.3–36.5; O2SAT 97–100
[2021-04-03] MEDS: 0.9% Normal Saline 1,000 ML 100 ML IV ×2 (01:11→10:22)
[2021-04-03 06:23] LABS: Hematocrit 28.4 % (40-54); Hemoglobin 8.6 g/dL (13.0-16.5); Mean Corp Hgb Conc 30.3 g/dL (32-36); Mean Corpuscular Hgb 28.9 pg (27.0-32.0); Mean Corpuscular Volume 95.3 fL (80-94); Mean Platelet Vol. 10.4 fl (6.2-12.0); Platelet Count 113 K/mm3 (150-450); RBC Distribution Width CV 16.1 % (11.6-14.6); RBC Distribution Width SD 56.7 fl (35.1-43.9); Red Blood Count 2.98 M/mm3 (4.6-6.2); White Blood Count 5.6 K/mm3 (4.4-11.0)
[2021-04-03] MEDS: hydrALAZINE 50 MG Tablet PO (06:33)
[2021-04-03] MEDS: cloNIDine HCl 0.1 MG Tablet 0.3 MG PO (06:34)
[2021-04-03] MEDS: Ipratropium/Albuterol Sulfate 3 ML AMPUL.NEB INHALATION (06:37)
[2021-04-03 06:40] LABS: Bedside Glucose 141 mg/dL (70-110)
[2021-04-03 07:19] LABS: Albumin, Serum 2.1 g/dL (3.2-5.0); BUN 117 mg/dL (7-18); BUN/Creat Ratio 31.7 RATIO (10-20); Calcium,Total 7.7 mg/dL (8.5-10.1); Chloride 98 mmol/L (98-107); Creatinine, Serum 3.69 mg/dL (0.70-1.30); EST Glomerular Filtration Rate 17 mL/min (>60); Est Glom Filt Rate - Afr Amer 21 mL/min (>60); Estimated Creatinine Clearance 18.68 ml/min; Glucose 148 mg/dL (74-106); Potassium 3.8 mmol/L (3.5-5.1); Sodium Level 134 mmol/L (136-145)
[2021-04-03] MEDS: Potassium Chloride Oral Tablet 20 MEQ PO (07:41)
[2021-04-03] MEDS: Carvedilol 25 MG Tablet 50 MG PO (07:41)
[2021-04-03] MEDS: Metoclopramide 5 MG TABLET PO ×2 (07:41→12:17)
[2021-04-03] MEDS: Aspirin 81 MG TAB.CHEW PO (07:41)
[2021-04-03] MEDS: Allopurinol 100 MG Tablet PO (07:41)
[2021-04-03] MEDS: Fluticasone 0.05% 1 SPRAY NASAL.SRY 2 SPRAY NASAL (07:41)
[2021-04-03] MEDS: Menthol/Lanolin/Calamine/Znox 113 GM Tube 1 APPLIC TOPICAL (07:42)
[2021-04-03] MEDS: Senna/Docusate Sodium 1 Tablet 2 TABLET PO (07:44)
[2021-04-03] MEDS: Epoetin Alfa epbx 10,000 UNITS/ML 10000 UNIT SC (10:21)
[2021-04-03 11:06] LABS: Bedside Glucose 117 mg/dL (70-110)
--- NOTE | 2021-04-03 11:07 | PCM.TXEXTCAR ---
Diet 03/31/21 13:28 Diet: Renal - ConsCHO - Babar Cont Is pt able to select menu?: Yes How many daily calories?: 2000 calorie Routine Orders/Code Status O2 Liters per Minute: 3 O2 Frequency: Continuous Code Status: Full Code Wound(s) Bilateral buttocks: Wound Type: Shearing Dressing Change: Mepilex below L medial ankle: Wound Type: deep indentation L heel: Wound Type: Pressure Injury Dressing Change: Dry Sterile Dressing Therapies Weight Bearing: Weight bearing as tolerated Physical Therapy: Eval and Treat Occupational Therapy: Eval and Treat Problem/Diagnosis (1) Acute kidney injury superimposed on CKD: Status: Chronic (2) Iron deficiency anemia: Status: Acute (3) UTI (urinary tract infection): Status: Acute Comment: E.coli (4) Diabetes mellitus, type II: Status: Chronic (5) Morbid obesity: Status: Chronic (6) Chronic kidney disease (CKD): Status: Chronic Comment: Stage IV (7) Debility: Status: Chronic Allergies/Procedures Done in Hospital Allergies ARB-Angiotensin Receptor Antagonist Allergy (Verified 03/30/21 21:16) WORSENS RENAL FUNCTION WORSENS RENAL FUNCTION amoxicillin Adverse Reaction (Verified 03/30/21 21:16) Upset Stomach Procedures: None Type of Care/Length of Stay Estimated LOS: Convalescent Care Less Than 30 days Type of Care Needed: Skilled Rehab Potential: Good Prognosis: Good Additional Orders/Day of Discharge H&P will serve as current which was dated: 03/30/21 Day of Discharge: 04/03/21 Dietary and Speech Recommendations Dietitian Recommendations/Changes: Continue renal-consistent carbohydrate-calorie controlled 2000kcal diet. D/c glucerna 120mL PO 4x/day at [facility]. Samara Bro MS, RDN, LD Follow Up Care Please Follow Up With: Vickie Gutierrez MD When: within 2 weeks Discharge Plan Admission Admit Date/Time: 03/30/21 23:45 Primary Reason for Your Visit: acute kidney injury Attending Provider: Hemal Rivera Primary Care Provider: Becca Malagon Consulting Providers: Vickie Gutierrez Discharge Orders/Prescriptions Prescriptions: New cephalexin 500 mg tablet 500 mg PO TID Qty: 15 RF: 0 Continued atorvastatin 80 mg tablet 80 mg PO QHS Qty: 90 RF: 0 bisacodyl 10 mg suppository 10 mg RC DAILY PRN (Reason: Constipation) RF: 0 mineral oil [Fleet Mineral Oil] Enema 118 ml RC DAILY PRN (Reason: Constipation) RF: 0 magnesium hydroxide 400 mg/5 mL suspension 30 ml PO DAILY PRN (Reason: Constipation) RF: 0 polyethylene glycol 3350 17 gram/dose powder 17 gm PO BID RF: 0 aspirin 81 MG tablet,chewable 81 mg PO DAILY RF: 0 fluticasone propionate 1 SPRAY spray,suspension 2 spray NASAL DAILY RF: 0 carvedilol 25 MG tablet 50 mg PO BID RF: 0 hydralazine 25 MG tablet 50 mg PO TID RF: 0 allopurinol 100 MG tablet 100 mg PO DAILYCM RF: 0 isosorbide mononitrate 120 MG tablet extended release 24 hr 120 mg PO DAILY RF: 0 cholecalciferol (vitamin D3) 1,000 UNIT tablet 1,000 unit PO SUWESA RF: 0 umeclidinium-vilanterol 1 EACH blister with device 1 puff IH DAILY RF: 0 albuterol sulfate 1 INHALER inhaler 2 puff INHALATION Q6H PRN PRN (Reason: Sob &/Or Wheezing) RF: 0 nitroglycerin 0.4 MG tablet, sublingual 0.4 mg SL Q5M PRN (Reason: Chest Pain) RF: 0 ondansetron HCl 8 MG tablet 8 mg PO Q8H PRN PRN (Reason: NAUSEA) Qty: 90 RF: 0 acetaminophen 500 MG tablet 1,000 mg PO Q6H PRN PRN (Reason: Pain Score 1-10) RF: 0 sennosides-docusate sodium 1 TABLET tablet 2 tablet PO DAILY RF: 0 tamsulosin 0.4 MG capsule 0.4 mg PO DAILY@1730 RF: 0 menthol-zinc oxide 1 APPLIC ointment 1 applic TOPICAL BID RF: 0 clonidine HCl 0.3 MG tablet 0.3 mg PO TID RF: 0 insulin lispro 100 UNIT/ML insulin pen See Protocol unit SC TID RF: 0 insulin glargine 100 UNITS/ML insulin pen 18 units SC QHS RF: 0 metoclopramide HCl [Reglan] 5 mg Tablet 5 mg PO TIDCM RF: 0 Discontinued bumetanide 1 mg tablet 3 mg PO BID RF: 0 potassium chloride 20 mEq Tablet Extended Release 20 meq PO DAILY RF: 0 metolazone 2.5 mg tablet 2.5 mg PO DAILY RF: 0 Referrals / Follow Up: Vickie Gutierrez DO [STAFF PHYSICIAN] - Within 2 Weeks Becca Malagon MD [Primary Care Provider] - Disposition Disposition (needs filled in before D/C Order can be placed): Group Home Facility
--- NOTE | 2021-04-03 19:40 | DS.PCM_ITS ---
Providers Date of Admission: 03/30/21 Date of Discharge: 04/03/21 Primary Care Physician: Dr. Becca Malagon MD Consultations 03/31/21 01:01 Consult: Nephrology Routine Consulting Provider: Vickie Gutierrez Reason for Consult: Acute on chronic kidney failure EMERGENT Consult: No MD Notified: Yes Date Notified: 03/31/21 Time Notified: 08:07 Method of Notification: Text 03/31/21 03:51 Consult: Onc/Wound/steel welder Routine Comment: Reason for Consult:: multiple open skin areas Reason For Visit: UTI, ACUTE ON CHRONIC KIDNEY FAILURE Diagnosis Discharge Diagnosis (1) Acute kidney injury superimposed on CKD: Status: Chronic Code(s): N17.9 - Acute kidney failure, unspecified; N18.9 - Chronic kidney disease, unspecified (2) Iron deficiency anemia: Status: Acute Code(s): D50.9 - Iron deficiency anemia, unspecified (3) UTI (urinary tract infection): Status: Acute Code(s): N39.0 - Urinary tract infection, site not specified Qualifiers: Urinary tract infection type: site unspecified Hematuria presence: without hematuria Qualified Code(s): N39.0 - Urinary tract infection, site not specified (4) Diabetes mellitus, type II: Status: Chronic Code(s): E11.9 - Type 2 diabetes mellitus without complications Qualifiers: Diabetes mellitus [facility] insulin use: with [facility] use (5) Morbid obesity: Status: Chronic Code(s): E66.01 - Morbid (severe) obesity due to excess calories (6) Chronic kidney disease (CKD): Status: Chronic Code(s): N18.9 - Chronic kidney disease, unspecified Qualifiers: Chronic kidney disease stage: stage 4 (severe) Qualified Code(s): N18.4 - Chronic kidney disease, stage 4 (severe) (7) Debility: Status: Chronic Code(s): R53.81 - Other malaise Plan: Discharge diagnosis: 1. Acute kidney injury superimposed on CKD stage IV #2 chronic hypoxic respiratory failure secondary to chronic diastolic congestive heart failure #3 chronic kidney disease stage IV #5 type 2 diabetes #6 essential hypertension #7 urinary tract infection with E. coli #8 hypokalemia #9 chronic obstructive pulmonary disease #10 pulmonary hypertension #11 morbid obesity #12 obstructive sleep apnea #13 anemia of chronic renal disease #14 hyponatremia #15 chronic debility Medications at Discharge Home Medications aspirin 81 mg PO DAILY 03/03/15 fluticasone propionate 2 spray NASAL DAILY 12/31/15 allopurinol 100 mg PO DAILYCM 03/03/19 carvedilol 50 mg PO BID 03/03/19 cholecalciferol (vitamin D3) 1,000 unit PO SUWESA 03/03/19 hydralazine 50 mg PO TID 03/03/19 isosorbide mononitrate 120 mg PO DAILY 03/03/19 umeclidinium-vilanterol 1 puff IH DAILY 03/03/19 atorvastatin 80 mg tablet 80 mg PO QHS #90 tablet 04/04/19 albuterol sulfate 2 puff INHALATION Q6H PRN PRN 04/27/19 nitroglycerin 0.4 mg SL Q5M PRN 09/19/20 acetaminophen 1,000 mg PO Q6H PRN PRN tablet 12/10/20 ondansetron HCl 8 mg PO Q8H PRN PRN #90 tablet 12/10/20 menthol-zinc oxide 1 applic TOPICAL BID 12/25/20 sennosides-docusate sodium 2 tablet PO DAILY 12/25/20 tamsulosin 0.4 mg PO DAILY@1730 12/25/20 clonidine HCl 0.3 mg PO TID 01/09/21 insulin glargine 18 units SC QHS 01/09/21 insulin lispro See Protocol SC TID 01/09/21 bisacodyl 10 mg rectal suppository 10 mg RC DAILY PRN 01/14/21 magnesium hydroxide 400 mg/5 mL oral suspension 30 ml PO DAILY PRN ml 01/14/21 mineral oil 118 ml RC DAILY PRN 01/14/21 polyethylene glycol 3350 17 gram/dose oral powder 17 gm PO BID 01/14/21 metoclopramide HCl [Reglan] 5 mg PO TIDCM 02/08/21 cephalexin 500 mg PO TID #15 tab 04/03/21 Hospital Course Operations None Procedures None Summary of Care Provided Minutes Spent on Discharge: 32 Hospital Course: 70-year-old white male was seen in the emergency room at [facility] with decreased urinary output at an extended care facility at which she was a resident. Patient has a history of stage IV chronic kidney disease, lab work in the emergency room was performed which showed an elevated creatinine of 5.63, BUN was 140, potassium was 3.2, urinalysis indicated a probable urinary tract infection. Patient was admitted to [place] [address], he was placed on IV fluids, he was placed on IV antibiotics and seen in consultation by nephrology. Over the next few days, patient's kidney functions improved with cessation of his outpatient diuretics and administration of fluids. On 04/03/2021, patient was seen and examined: On examination he appeared in no d istress, he appeared older than his stated age. Vital signs as documented. Skin warm and dry and without overt rashes. Neck without JVD, neck was supple, trachea midline, thyroid was normal. Lungs clear bilaterally, normal air movement was noted. Heart exam notable for regular rhythm, normal sounds and absence of murmurs, rubs or gallops. Abdomen unremarkable and without evidence of organomegaly, masses, or abdominal aortic enlargement. Bowel sounds are present, abdomen is not distended. Extremities nonedematous, no cyanosis was noted, no clubbing was noted. Neuro: Cranial nerves II through XII are grossly intact, no focal motor deficits were noted, sensation to light touch and pinprick intact, motor exam 5/5 throughout. Psych: Patient is alert and oriented x3, he does not appear anxious or depressed, he does not appear agitated. Patient was discharge back to his group home facility on 04/03/2021 in stable condition Weight / BMI Weight Weight: 146.5 kg Body Mass Index (BMI) 43.9 ABG / Lab / Microbiology Data Result Diagrams: 04/03/21 05:44 04/03/21 05:44 Laboratory: Laboratory Results - last 24 hr 04/02/21 04/03/21 04/03/21 21:57 05:44 05:44 WBC 5.6 RBC 2.98 L Hgb 8.6 L Hct 28.4 L MCV 95.3 H MCH 28.9 MCHC 30.3 L RDW Std Deviation 56.7 H RDW Coeff of Gina 16.1 H Plt Count 113 L MPV 10.4 Sodium 134 L Potassium 3.8 Chloride 98 Carbon Dioxide 29.0 BUN 117 H* Creatinine 3.69 H Estim Creat Clear Calc 18.68 Est GFR (MDRD) Af Amer 21 L Est GFR (MDRD) Non-Af 17 L BUN/Creatinine Ratio 31.7 H Glucose 148 H Calcium 7.7 L Phosphorus 4.0 Albumin 2.1 L POC Glucose 199 H 04/03/21 04/03/21 06:32 10:55 WBC RBC Hgb Hct MCV MCH MCHC RDW Std Deviation RDW Coeff of Gina Plt Count MPV Sodium Potassium Chloride Carbon Dioxide BUN Creatinine Estim Creat Clear Calc Est GFR (MDRD) Af Amer Est GFR (MDRD) Non-Af BUN/Creatinine Ratio Glucose Calcium Phosphorus Albumin POC Glucose 141 H 117 H Microbiology: Microbiology 04/03/21 11:30 SARS-CoV-2 Antigen (Rapid) - Final Mucosa - Nose Microbiology 04/03/21 11:30 Mucosa - Nose SARS-CoV-2 Antigen (Rapid) - Final 03/30/21 23:20 Urine Catheter - Catheter Urine Culture - Final Presumptive E. coli D/C Instructions Please Follow Up With: Vickie Gutierrez MD Meaningful Use Info Meaningful Use Diagnoses (Choose all that apply): None applicable Discharge Plan Admission Admit Date/Time: 03/30/21 23:45 Primary Reason for Your Visit: acute kidney injury Attending Provider: Hemal Rivera Primary Care Provider: Becca Malagon Consulting Providers: Vickie Gutierrez Discharge Orders/Prescriptions Prescriptions: New cephalexin 500 mg tablet 500 mg PO TID Qty: 15 RF: 0 Continued atorvastatin 80 mg tablet 80 mg PO QHS Qty: 90 RF: 0 bisacodyl 10 mg suppository 10 mg RC DAILY PRN (Reason: Constipation) RF: 0 mineral oil [Fleet Mineral Oil] Enema 118 ml RC DAILY PRN (Reason: Constipation) RF: 0 magnesium hydroxide 400 mg/5 mL suspension 30 ml PO DAILY PRN (Reason: Constipation) RF: 0 polyethylene glycol 3350 17 gram/dose powder 17 gm PO BID RF: 0 aspirin 81 MG tablet,chewable 81 mg PO DAILY RF: 0 fluticasone propionate 1 SPRAY spray,suspension 2 spray NASAL DAILY RF: 0 carvedilol 25 MG tablet 50 mg PO BID RF: 0 hydralazine 25 MG tablet 50 mg PO TID RF: 0 allopurinol 100 MG tablet 100 mg PO DAILYCM RF: 0 isosorbide mononitrate 120 MG tablet extended release 24 hr 120 mg PO DAILY RF: 0 cholecalciferol (vitamin D3) 1,000 UNIT tablet 1,000 unit PO SUWESA RF: 0 umeclidinium-vilanterol 1 EACH blister with device 1 puff IH DAILY RF: 0 albuterol sulfate 1 INHALER inhaler 2 puff INHALATION Q6H PRN PRN (Reason: Sob &/Or Wheezing) RF: 0 nitroglycerin 0.4 MG tablet, sublingual 0.4 mg SL Q5M PRN (Reason: Chest Pain) RF: 0 ondansetron HCl 8 MG tablet 8 mg PO Q8H PRN PRN (Reason: NAUSEA) Qty: 90 RF: 0 acetaminophen 500 MG tablet 1,000 mg PO Q6H PRN PRN (Reason: Pain Score 1-10) RF: 0 sennosides-docusate sodium 1 TABLET tablet 2 tablet PO DAILY RF: 0 tamsulosin 0.4 MG capsule 0.4 mg PO DAILY@1730 RF: 0 menthol-zinc oxide 1 APPLIC ointment 1 applic TOPICAL BID RF: 0 clonidine HCl 0.3 MG tablet 0.3 mg PO TID RF: 0 insulin lispro 100 UNIT/ML insulin pen See Protocol unit SC TID RF: 0 insulin glargine 100 UNITS/ML insulin pen 18 units SC QHS RF: 0 metoclopramide HCl [Reglan] 5 mg Tablet 5 mg PO TIDCM RF: 0 Discontinued bumetanide 1 mg tablet 3 mg PO BID RF: 0 potassium chloride 20 mEq Tablet Extended Release 20 meq PO DAILY RF: 0 metolazone 2.5 mg tablet 2.5 mg PO DAILY RF: 0 Referrals / Follow Up: Vickie Gutierrez DO [STAFF PHYSICIAN] - Within 2 Weeks Becca Malagon MD [Primary Care Provider] - Disposition Disposition (needs filled in before D/C Order can be placed): [facility] Charges/Coding Visit Charges Inpatient E&M: 71389 Disch Hosp
== END 2021-04-03 13:28 | disposition skilled nursing facility (03) | DRG 683 ==
LOC: ED 22:14 → MS3 03-31 04:32
PROVIDERS: Internal Medicine Nephrology; Nurse Practitioner Family; Admitting Provider Family Medicine; Emergency Provider Emergency Medicine; PCP Internal Medicine; Visit Provider Internal Medicine
DX: N17.9 Acute kidney failure, unspecified (principal); J96.11 Chronic respiratory failure with hypoxia; I50.32 Chronic diastolic (congestive) heart failure; I13.0 Hypertensive heart and chronic kidney disease with heart failure and stage 1 through stage 4 chronic kidney disease, or unspecified chronic kidney disease; N39.0 Urinary tract infection, site not specified; E87.1 Hypo-osmolality and hyponatremia; Z68.42 Body mass index [BMI] 45.0-49.9, adult; N18.4 Chronic kidney disease, stage 4 (severe); E11.22 Type 2 diabetes mellitus with diabetic chronic kidney disease; B96.20 Unspecified Escherichia coli [E. coli] as the cause of diseases classified elsewhere; E87.6 Hypokalemia; J44.9 Chronic obstructive pulmonary disease, unspecified; I27.21 Secondary pulmonary arterial hypertension; E66.01 Morbid (severe) obesity due to excess calories; G47.33 Obstructive sleep apnea (adult) (pediatric); D63.1 Anemia in chronic kidney disease; R53.81 Other malaise; Z87.891 Personal history of nicotine dependence; E86.0 Dehydration; Z79.4 Long term (current) use of insulin; Z79.899 Other long term (current) drug therapy; Z99.81 Dependence on supplemental oxygen; Z99.3 Dependence on wheelchair
CPT/HCPCS: 36415; 51702; 71045; 80048; 80053; 80069; 81001; 82728; 82962; 83540; 83550; 83735; 85025; 85027; 87086; 87088; 87186; 87426; 93005; 94002; 94003; 94640; 97110; 97162; 97166; 97530; 97535; 97802; 97803; 99285; J7030; J7050; A4216; J2916; Q5106